=== PATIENT | female | born 2000 | race Caucasian/White ===

== ENCOUNTER 2023-01-10 10:51 | Emergency (ER) | payer OTHER, SELFPAY ==
[2023-01-10 10:56] VITALS: BP 134/84; PULSE 124; RESP 24; TEMP 36.8; O2SAT 99; BMI 34.6
--- NOTE | 2023-01-10 11:20 | ED_ITS ---
HPI - General Adult General Chief complaint: Upper Respiratory Infection Stated complaint: URTI Time Seen by Provider: 01/10/23 11:01 History of Present Illness HPI narrative: 5 days ago the patient developed sore throat, achiness, nasal congestion and cough. No fever or chills. No vomiting or diarrhea. Patient thought it might go away on its own but it hasn't. She took Dayquil once and took tylenol twice. Nothing else taken for her symptoms. She told me that she is concerned because her grandfather had hand foot and mouth disease and was admitted for pneumonia a couple weeks ago . No home or out-patient testing obtained by the patient. Related Data Previous Rx's Medication Instructions Recorded [id number]-[id number] 5 ml PO Q6H PRN cold symptoms #118 01/10/23 2 mg-30 mg-10 mg/5 mL oral syrup mL (Bromfed DM) Allergies Allergy/AdvReac Type Severity Reaction Status Date / Time No Known Drug Allergies Allergy Verified 01/10/23 11:00 [facility] Social History Smoking status: Heavy tobacco smoker Exam Narrative Exam Narrative: Nurses notes and vital signs reviewed and patient is not hypoxic. afebrile General: Well-appearing and in no apparent distress. Skin: Warm, dry, no pallor noted. No rash. Head: Normocephalic, atraumatic. Neck: Supple, non-tender. no cervical lymphadenopathy. No meningismus. Eye: Pupils are equal, round and EOMI. No scleral icterus. Ears, Nose, Mouth, and Throat: TM are clear, mild nasal mucosal hypertrophy. Oral mucosa is moist, mild posterior oropharynx erythema without exudate, uvula is mid-line, mild postnasal drip noted. Cardiovascular: tachycardia. Respiratory: No accessory muscle use or respiratory distress. Lungs are clear to auscultation, no wheezing, rales or rhonchi Musculoskeletal: normal ROM Neurological: A&O x4. No cranial nerve dysfunction observed. No truncal ataxia. Moves all extremities. Sensation intact. Psychiatric: Cooperative and interactive. Normal mood and affect. Constitutional Vital Signs, click to edit/add: Last Vital Signs Temp 98.2 F 01/10/23 10:56 Pulse 124 H 01/10/23 10:56 Resp 24 01/10/23 10:56 BP 134/84 01/10/23 10:56 Pulse Ox 99 01/10/23 10:56 Course Vital Signs Vital signs: Vital Signs Temperature 98.2 F 01/10/23 10:56 Pulse Rate 124 H 01/10/23 10:56 Respiratory Rate 24 01/10/23 10:56 Blood Pressure 134/84 01/10/23 10:56 Pulse Oximetry 99 01/10/23 10:56 Temperature 98.2 F 01/10/23 10:56 Pulse Rate 124 H 01/10/23 10:56 Respiratory Rate 24 01/10/23 10:56 Blood Pressure 134/84 01/10/23 10:56 Pulse Oximetry 99 01/10/23 10:56 Medical Decision Making MDM Narrative Medical decision making narrative: swabs for strep and Covid were obtained and sent for testing. Negative strep screen. Patient tested positive for Covid. She was discharged home with prescription for bromfed. Work excuse given. Patient advised to rest, stay at home, practice social distancing, take Motrin and Tylenol for pain and fever if not allergic, stay well hydrated with Gatorade or similar drinks if vomiting or eat as tolerated if not and take any meds as prescribed. Reviewed reasons to return including rapid increase in respiratory rate, shortness of breath, confusion, inability to keep down sips of swallowed liquids for more than 24 hours. Asked patient to encourage any ill contacts to stay home and practice similar advice. Lab Data Lab results reviewed: Yes I reviewed the patient's lab results Labs: Lab Results 01/10/23 01/10/23 Range/Units 11:25 11:27 SARS-CoV-2 (PCR) Positive A (NEGATIVE) Streptococcus Screen Negative Discharge Plan Discharge Chief Complaint: Upper Respiratory Infection Clinical Impression: COVID, Upper respiratory infection Patient Disposition: Home, Self-Care Time of Disposition Decision: 11:52 Prescriptions / Home Meds: New [id number] [Bromfed DM] 2-30-10 mg/5 mL syrup 5 ml PO Q6H PRN (Reason: cold symptoms) Qty: 118 0RF Instructions: Upper Respiratory Infection (ED), COVID-19 (Coronavirus Disease 2019) (ED) Stand Alone Forms: Portal Instructions Referrals: Physician,Non-Staff, MD [Primary Care Provider] - 1 week Discharge Date/Time: 01/10/23 12:08
[2023-01-10 11:52] LABS: SARS-CoV-2 Ag POSITIVE (NEGATIVE)
[2023-01-10 11:53] LABS: Internal Control Within Normal Limits; Strep A Antigen Screen Negative
== END 2023-01-10 12:08 | disposition home or self-care (01) ==
PROVIDERS: Emergency Provider Emergency Medicine
DX: U07.1 COVID-19 (principal); J06.9 Acute upper respiratory infection, unspecified; F17.210 Nicotine dependence, cigarettes, uncomplicated
CPT/HCPCS: 87070; 87811; 87880; 99283

== ENCOUNTER 2023-05-05 17:13 | Emergency (ER) | payer OTHER, SELFPAY ==
[2023-05-05] VITALS (7 sets, daily range): BP systolic 115–120; BP diastolic 76–91; PULSE 72–87; RESP 16–17; TEMP 36.8; O2SAT 99–100; BMI 32.3
--- OUTSIDE RECORDS SUMMARY | 2023-05-05 17:20 | XMS_ITS | CCD ---
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 Instructions: Upper Respiratory Infection, Adult, Hhgo-xo-Cecn Follow up: With: Address: When: Jewell Monzon [address] [place] [address] [place] [phone] Business (1) In 3 days 05/05/2023 Comments: Follow-up with your primary care provider in 3 to 5 days. If symptoms worsen, do not improve, or new symptoms arise please report back to emergency department for further evaluation. DIAGNOSIS: Acute URI Normal [facility] ED Note-Physicianon 05-02-19 ED Note-Physician Basic Information Time Seen: Carlos Wolf PA-C 05/02/2023 08:19 Chief Complaint sore throat, productive cough, congestion, fever for the last week. has been taking nyquil and dayquil, tylenol. History of Present Illness A 22-year-old female reports to the emergency department with chief complaint of sore throat, congestion, and fever as well as a productive cough has been going on for the last 6 days. Reports that she has been taking NyQuil and DayQuil as long as Tylenol, without much relief of her symptoms. States that her worst pain is her sore throat right now. Denies any recent sick contacts. Reports allergies to Abilify meloxicam and Vicodin. Denies any chest pain or shortness of breath. Denies any history of asthma. Review of Systems A 10 point review of systems is negative except as noted above. Medical and Surgical History: Reviewed and noted Social history: Lives at home Family History: Reviewed. Tobacco: denies, former Physical Exam Vitals & Measurements T: 36.6 ?C(Oral) HR: 92(Peripheral) RR: 18 BP: 124/77 SpO2: 94% HT: 165 cm WT: 87.3 kg BMI: 32.07 General: The patient appears well and in no apparent distress. Patient is resting comfortably in chair. afebrile Skin: Warm, dry, no pallor noted. Head: Normocephalic, atraumatic Neck: No JVD Eye: PERRLA, EOMI ENT: Moist mucus membranes. Pharynx is erythematous, but no exudates are seen. Bilateral TMs intact with no erythema or bulging. Cardiovascular: Regular rate normal peripheral perfusion. Radial pulses +2 bilaterally Respiratory: No respiratory distress no accessory muscle use no obvious audible wheezing. Lung sounds clear to auscultation Chest Wall: no deformity Musculoskeletal: normal ROM, no deformity, no swelling GI: No obvious distention soft nontender nondistended no guarding rebounding or rigidity Neurological: A&O moves all extremities equal strength and symmetry Psychiatric: Cooperative and appropriate Medical Decision Making MEDICAL DECISION MAKING Number and Complexity of Problems Differential Diagnosis: MDM Data External documents reviewed: [] My EKG interpretation: [] My CT interpretation: [] My X-ray interpretation: reviewed My Ultrasound interpretation: [] Decision rules/scores evaluated: [] Discussed with: [] Treatment and Disposition ED Course: 22-year-old female reports to the emergency department with a chief complaint of cough, congestion, and throat pain that has been going on for 6 days. Reports that she has been taking OTC meds without relief. Physical exam with patient is rather benign. Mild erythema of the throat, but otherwise benign exam. She is afebrile resting comfortably in the chair. Lung sounds good auscultation. Due to concerns, we did do a chest x-ray, as well as strep flu and COVID swabs on the patient. Swabs were negative. Chest x-ray negative as well. Discussed likely URI. Discussed supportive therapy. Follow-up with your primary care provider in 3 to 5 days. If symptoms worsen, do not improve, or new symptoms arise please report back to emergency department for further evaluation. The patient was understanding and agreeable to plan moving forward. [x] The patient was diagnosed with upper respiratory infection and was not prescribed an antibiotic. [SATISFIES MIPS PERFORMANCE] [ ] The patient has competing comorbid condition within the last 12 months. The comorbid condition was [] (e.g., neutropenia, cystic fibrosis, chronic bronchitis, pulmonary edema, respiratory failure, rheumatoid lung disease). [MIPS PERFORMANCE EXCEPTION/EXCLUSION [ ] The patient is already on antibiotics, or has taken them within the last 30 days. [MIPS PERFORMANCE EXCEPTION/EXCLUSION] [ ] The patient had a competing diagnosis of [] (e.g. acute otitis media, chronic sinusitis, UTI, etc.) [MIPS PERFORMANCE EXCEPTION/EXCLUSION] [ ] The patient was diagnosed with upper respiratory infection and was prescribed or dispensed an antibiotic. [DOES NOT SATISFY MIPS PERFORMANCE] Shared decision making: [] Code status: [] Assessment/Plan Dx: URI (upper respiratory infection) J06.9 Disposition Plan Patient Discharge Condition Stable Discharge Disposition To home Discharge Prescription List Prescriptions Bromfed DM oral syrup, 5 mL, Oral, QID, PRN Medrol 4 mg Tab, 1 packet(s), Oral, As Directed Follow-up With When Contact Information Jewell Nicolás In 3 days 05/05/[address] [place] [address] [phone] [facility] (1) Additional Instructions: Follow-up with your primary care provider in 3 to 5 days. If symptoms worsen, do not improve, or new symptoms arise please report back to emergency department for further evaluation. Patient Education Upper Respiratory Infection, Adult, Elbh-kk-Frvd Attestation Patient seen and evaluated by the physician medical assistant ob gyn. Attending physician was present in the emergency department and supervised care. This visit was perfo (more content not included)... Normal [facility] Comment on above: Result Comment: Elec tronically Signed By: Luciano [email or web address].br\Date and Time Signed: 05/02/23 09:22 EST\.br\Electronically Co-Signed By: Adolph Aleman M.D..br\Date and Time Co-Signed: 05/02/23 10:33 EST ED Patient Education Noteon 05-02-2023 ED Patient Education Note Infectious Disease Upper Respiratory Infection, Adult An upper respiratory infection (URI) affects the nose, throat, and upper airways that lead to the lungs. The most common type of URI is often called the common cold. URIs usually get better on their own, without medical treatment. What are the causes? A URI is caused by a germ (virus). You may catch these germs by: ? Breathing in droplets from an infected person's cough or sneeze. ? Touching something that has the germ on it (is contaminated) and then touching your mouth, nose, or eyes. What increases the risk? You are more likely to get a URI if: ? You are very young or very old. ? You have close contact with others, such as at work, school, or a health care facility. ? You smoke. ? You have long-term (chronic) heart or lung disease. ? You have a weakened disease-fighting system (immune system). ? You have nasal allergies or asthma. ? You have a lot of stress. ? You have poor nutrition. What are the signs or symptoms? ? Runny or stuffy (congested) nose. ? Cough. ? Sneezing. ? Sore throat. ? Headache. ? Feeling tired (fatigue). ? Fever. ? Not wanting to eat as much as usual. ? Pain in your forehead, behind your eyes, and over your cheekbones (sinus pain). ? Muscle aches. ? Redness or irritation of the eyes. ? Pressure in the ears or face. How is this treated? URIs usually get better on their own within 7?10 days. Medicines cannot cure URIs, but your doctor may recommend certain medicines to help relieve symptoms, such as: ? Dlrl-aoc-qhvsjtr cold medicines. ? Medicines to reduce coughing (cough suppressants). Coughing is a type of defense against infection that helps to clear the nose, throat, windpipe, and lungs (respiratory system). Take these medicines only as told by your doctor. ? Medicines to lower your fever. Follow these instructions at home: Activity ? Rest as needed. ? If you have a fever, stay home from work or school until your fever is gone, or until your doctor says you may return to work or school. ? You should stay home until you cannot spread the infection anymore (you are not contagious). ? Your doctor may have you wear a face mask so you have less risk of spreading the infection. Relieving symptoms ? Rinse your mouth often with salt water. To make salt water, dissolve ??1 tsp (3?6 g) of salt in 1 cup (237 mL) of warm water. ? Use a cool-mist humidifier to add moisture to the air. This can help you breathe more easily. Eating and drinking ? Drink enough fluid to keep your pee (urine) pale yellow. ? Eat soups and other clear broths. General instructions ? Take arzm-qqq-oprgugz and prescription medicines only as told by your doctor. ? Do not smoke or use any products that contain nicotine or tobacco. If you need help quitting, ask your doctor. ? Avoid being where people are smoking (avoid secondhand smoke). ? Stay up to date on all your shots (immunizations), and get the flu shot every year. ? Keep all follow-up visits. How to prevent the spread of infection to others ? Wash your hands with soap and water for at least 20 seconds. If you cannot use soap and water, use hand principal engineer. ? Avoid touching your mouth, face, eyes, or nose. ? Cough or sneeze into a tissue or your sleeve or elbow. Do not cough or sneeze into your hand or into the air. Contact a doctor if: ? You are getting worse, not better. ? You have any of these: ? A fever or chills. ? Brown or red mucus in your nose. ? Yellow or brown fluid (discharge)coming from your nose. ? Pain in your face, especially when you bend forward. ? Swollen neck glands. ? Pain when you swallow. ? White areas in the back of your throat. Get help right away if: ? You have shortness of breath that gets worse. ? You have very bad or constant: ? Headache. ? Ear pain. ? Pain in your forehead, behind your eyes, and over your cheekbones (sinus pain). ? Chest pain. ? You have long-lasting (chronic) lung disease along with any of these: ? Making high-pitched whistling sounds when you breathe, most often when you breathe out (wheezing). ? Long-lasting cough (more than 14 days). ? Coughing up blood. ? A change in your usual mucus. ? You have a stiff neck. ? You have changes in your: ? Vision. ? Hearing. ? Thinking. ? Mood. These symptoms may be an emergency. Get help right away. Call 911. ? Do not wait to see if the symptoms will go away. ? Do not drive yourself to the hospital. Summary ? An upper respiratory infection (URI) is caused by a germ (virus). The most common type of URI is often called the common cold. ? URIs usually get better within 7?10 days. ? Take tfug-qnh-ijwkmzs and prescription medicines only as told by your doctor. This information is not intended to replace advice given to you by your health care (more content not included)... Normal [facility] ED Patient Summaryon 024 ED Patient Summary [place] [id number] Patient Discharge Instructions Person Information Name: FABRIZIO CARBALLO Age: 22 Years Arrival Date: 05/02/2023 08:16:05 Discharge Diagnosis: Acute URI Primary Care Physician: Nicolás MINA, [employer], Jewell Alcala Provider Information Primary Provider: Love Clifford, Adolph Alejo [employer] Services Intern:None The exam and treatment you received in the Emergency Department were for an urgent problem and are not intended as complete care. It is important that you follow up with a doctor, nurse practitioner, or physician?s medical assistant ob gyn for ongoing care. If your symptoms become worse or you do not improve as expected and you are unable to reach your usual health care provider, you should return to the Emergency Department. We are available 24 hours a day. FABRIZIO CARBALLO has been given the following list of patient education materials, prescriptions and follow-up instructions: Follow-up Instructions: With: Address: When: Jewell Monzon [address] [place] [address] [place] [phone] Business (1) In 3 days 05/05/2023 Comments: Follow-up with your primary care provider in 3 to 5 days. If symptoms worsen, do not improve, or new symptoms arise please report back to emergency department for further evaluation. In the event that this physician does not participate in your insurance network, please consult with your insurance company to find a nearby participating provider. Patient Education Materials: Upper Respiratory Infection, Adult, Nirs-cv-Nbwg A MESSAGE TO ALL PATIENTS REGARDING OPIOIDS PRESCRIPTION OPIOIDS: WHAT YOU NEED TO KNOW Prescription opioids can be used to help relieve npgffdbw-sp-hhinsw pain and are often prescribed following a surgery or injury, or for certain health conditions. These medications can be an important part of the treatment but also come with serious risks. It is important to work with your healthcare provider to make sure you are getting the safest, most effective care. WHAT ARE THE RISKS AND SIDE EFFECTS OF OPIOID USE? Prescription opioids carry serious risks of addiction and overdose, especially with prolonged use. An opioid overdose, often marked by slowed breathing, can cause sudden . The use of prescription opioids can have a number of side effects as well, even when taken as directed: ? Tolerance?meaning you might need to take more of the medication for the same pain relief ? Physical dependence?meaning you have symptoms of withdrawal when a medication is stopped ? Increased sensitivity to pain ? Constipation ? Nausea, vomiting, and dry mouth ? Sleepiness and dizziness ? Confusion ? Depression ? Low levels of testosterone that can result in lower sex drive, energy, and strength ? Itching and sweating RISKS ARE GREATER WITH: ? History of drug misuse, substance use disorder, or overdose ? Mental health conditions (such as depression or anxiety) ? Sleep apnea ? Older age (65 years and older) ? Avoid alcohol while taking prescription opioids. Also, unless specifically advised by your health care provider, medications to avoid include: ? Benzodiazepines (such as Xanax or Valium) ? Muscle relaxants (such as Soma or Flexeril) ? Hypnotics (such as Ambien or Lunesta) ? Other prescription opioids KNOW YOUR OPTIONS Talk to your health care provider about ways to manage your pain that don?t involve prescription opioids. Some of these options may actually work better and have fewer risks and side effects. Options may include: ? Pain relievers such as acetaminophen, ibuprofen, and naproxen ? Some medication that are also used for depression or seizures ? Physical therapy and exercise ? Cognitive behavioral therapy, a psychological, goal-directed approach, in which patients learn how to modify physical, behavioral, and emotional triggers of pain and stress. IF YOU ARE PRESCRIBED OPIOIDS FOR PAIN: ? Never take opioids in greater amounts or more often than prescribed. ? Follow up with your primary health care provider. o Work together to create a plan on how to manage your pain. o Talk about ways to help manage your pain that don?t involve prescription opioids. o Talk about any and all concerns and side effects. ? Help prevent misuse and abuse o Never sell or share prescription opioids. o Never use another person?s prescription opioids. ? Store prescription opioids in a secure place and out of reach of others (this may include visitors, children, friends, and family). ? Safely dispose of unused prescription opioids: Find your community drug take-back program or your pharmacy mail-back program, or flush them down the toilet, following guidance from the Food and Drug Administration (www.fda.gov/Drugs/R esourcesForYou). ? Visit www.cdc.gov/drugover dose to learn about the risks of opioids a (more content not included)... Normal [facility] Grp A Strp PCRon 05-02-2023 Grp A Strp Intrl Ctrl Pass Normal [facility] Comment on above: Order Comment: Order Added on by Discern Rule. Performed By: #### 1 [id number] ####[facility] [id number] [place] [address] S. pyogenes DNA ELYSIA+probe Ql (Throat) Negative Normal [facility] Comment on above: Order Comment: Order Added on by Discern Rule. Result Comment: Test ing performed using DNA amplification. Performed By: #### 1 [id number] ####[facility] [id number] [place] [address] Influenza A&B Agon 4 Influenzae A Ag Negative Normal Negative [facility] Comment on above: Performed By: #### 2 [id number] #### [facility] [address] [place] [address] Influenzae B Ag Negative Normal Negative [facility] Comment on above: Result Comment: Test sensitivity and specificity vary for age group, specimen type, antigen types, and prevalence of disease. Test results must be evaluated in conjunction with other clinical data available to the physician. Individuals who received nasally administered Influenza A vaccine may have positive test results up to 3 days after vaccination. Performed By: #### 2 [id number] #### [facility] [address] [place] [address] MICRO OTHER TESTSOrdered By: Mary Guerrero on 05-02-2023 Influenzae A Ag Negative (05/02/23 8:28 AM) Normal Negative [facility] Man Sero Influenzae B Ag Negative 1 (05/02/23 8:28 AM) Normal Negative [facility] Man Sero Comment on above: Interpretive Data: T est sensitivity and specificity vary for age group, specimen type, antigen types, and prevalence of disease. Test results must be evaluated in conjunction with other clinical data available to the physician. Individuals who received nasally administered Influenza A vaccine may have positive test results up to 3 days after vaccination. Rapid COV Int NEG Ctl Pass (05/02/23 8:28 AM) Normal [facility] Man Sero Rapid COV Int POS Ctl Pass (05/02/23 8:28 AM) Normal [facility] Sero S. pyogenes Ag IA.rapid Ql (Throat) Negative (05/02/23 8:28 AM) Normal Negative [facility] Sero SARS-CoV+SARS-CoV-2 (COVID-19) Ag IA.rapid Ql (Resp) Not Detected 2 (05/02/23 8:28 AM) Normal Not Detected [facility] Man Sero Comment on above: Interpretive Data: T he [employer] Veritor System for Rapid Detection of SARS-CoV-2 is a chromatographic digital immunoassay intended for the direct and qualitative detection of SARS-CoV-2 nucleocapsid antigens in nasal swabs from individuals who are suspected of COVID-19 by their healthcare provider within the first five days of the onset of symptoms. Negative results should be treated as presumptive, do not rule out SARS-CoV-2 infection and should not be used as the sole basis for treatment or patient management decisions, including infection control decisions. Negative results should be considered in the context of a patient s recent exposures, history and the presence of clinical signs and symptoms consistent with COVID-19, and confirmed with a molecular assay, if necessary, for patient management. For in vitro diagnostic use. In the [place], only for use under an Emergency Use Authorization. In the [place], this test has not been FDA cleared or approved; this test has been authorized by FDA under an EUA for use by authorized laboratories; use by laboratories certified under the CLIA, 42 U.S.C. 263a, that meet requirements to perform moderate, high, or waived complexity tests and at the Point of Care (POC), i.e., in patient care settings operating under a CLIA Certificate of Waiver, Certificate of Compliance, or Certificate of Accreditation. This test has been authorized only for the detection of proteins from SARS-CoV-2, not for any other viruses or pathogens; and, in the [facility], this test is only authorized for the duration of the declaration that circumstances exist justifying the authorization of emergency use of in vitro diagnostics for detection and/or diagnosis of the virus that causes COVID-19 under Section 564(b)(1) of the Act, 21 U.S.C. 360bbb-3(b)(1), unless the authorization is terminated or revoked sooner. Rapid COVID Antigen ([facility])on 05-02-2023 Rapid COV Int NEG Ctl Pass Normal [facility] Comment on above: Performed By: #### 2 [id number] #### [facility] [address] [place] [address] Rapid COV Int POS Ctl Pass Normal [facility] Comment on above: Performed By: #### 2 [id number] #### [facility] [address] [place] [address] SARS-CoV+SARS-CoV-2 (COVID-19) Ag IA.rapid Ql (Resp) Not detected Normal Not Detected [facility] Comment on above: Result Comment: The [employer]? System for Rapid Detection of SARS-CoV-2 is a chromatographic digital immunoassay intended for the direct and qualitative detection of SARS-CoV-2 nucleocapsid antigens in nasal swabs from individuals who are suspected of COVID-19 by their healthcare provider within the first five days of the onset of symptoms. Negative results should be treated as presumptive, do not rule out SARS-CoV-2 infection and should not be used as the sole basis for treatment or patient management decisions, including infection control decisions. Negative results should be considered in the context of a patient?s recent exposures, history and the presence of clinical signs and symptoms consistent with COVID-19, and confirmed with a molecular assay, if necessary, for patient management. For in vitro diagnostic use. In the [place], only for use under an Emergency Use Authorization. In the [place], this test has not been FDA cleared or approved; this test has been authorized by FDA under an EUA for use by authorized laboratories; use by laboratories certified under the CLIA, 42 U.S.C. ?263a, that meet requirements to perform moderate, high, or waived complexity tests and at the Point of Care (POC), i.e., in patient care settings operating under a CLIA Certificate of Waiver, Certificate of Compliance, or Certificate of Accreditation. This test has been authorized only for the detection of proteins from SARS-CoV-2, not for any other viruses or pathogens; and, in the [place], this test is only authorized for the duration of the declaration that circumstances exist justifying the authorization of emergency use of in vitro diagnostics for detection and/or diagnosis of the virus that causes COVID-19 under Section 564(b)(1) of the Act, 21 U.S.C. ? 360bbb-3(b)(1), unless the authorization is terminated or revoked sooner. Performed By: #### 2 [id number] #### [facility] [address] [place] [address] Rapid Strep w/rfxon 05-02-19 24 S. pyogenes Ag IA.rapid Ql (Throat) Negative Normal Negative [facility] Comment on above: Performed By: #### 2 [id number] #### [facility] [address] [place] [address] XR Chest 2 Viewson 4 XR Chest 2 Views Exam Date/Time: 05/02/2023 08:58 EST Reason for Exam: Cough Report IMPRESSION: No acute radiographic abnormality. EXAMINATION: XR Chest 2 Views Clinical History: Cough Comparison: 03/11/2021. RESULT: No consolidation. No pleural effusion. No pneumothorax. Granulomatous calcifications, unchanged. Normal cardiomediastinal silhouette. No acute osseous findings. Ordering Provider: Carlos Wolf FINAL REPORT Dictated: 05/02/2023 9:09 am Bhavesh Hooper MD Signed (Electronic Signature): 05/02/2023 9:09 am Signed by: Bhavesh Hooper MD Transcribed by: ANCELMO Technologist: ANNIE Technical Comments Radiation Dose: Ka,r in mGy = . DAP = . Normal [facility] ED Note-Physicianon 04-24-19 ED Note-Physician Basic Information Time Seen: Carlos Wolf PA-C 04/23/2023 19:16 Chief Complaint slipped on broom and fell. has had back and neck pain History of Present Illness 22-year-old female reports emerged department chief complaint of falling. Reports that she slipped on the broom, and fell backwards. Reports that her head and neck. Reports having head and neck pain. Ports pain in her shoulders as well. She reports that this happened a while ago. Reports he went to get checked out. Denies any nausea or vomiting. Denies any visual changes. States that she is concerned and wants to get a scan of her head. Review of Systems A 10 point review of systems is negative except as noted above. Medical and Surgical History: Reviewed and noted Social history: Lives at home Family History: Reviewed. Tobacco: Denies, former Physical Exam Vitals & Measurements T: 36.7 ?C(Oral) HR: 71(Peripheral) RR: 20 BP: 120/82 SpO2: 98% HT: 165.10 cm WT: 90 kg BMI: 33.02 General: The patient appears well and in no apparent distress. Patient is resting comfortably in chair. Afebrile. No focal neurological defects. Skin: Warm, dry, no pallor noted. Head: Normocephalic, atraumatic Neck: No JVD Eye: PERRLA, EOMI ENT: Moist mucus membranes Cardiovascular: Regular rate normal peripheral perfusion Respiratory: No respiratory distress no accessory muscle use no obvious audible wheezing Chest Wall: no deformity Musculoskeletal: normal ROM, no deformity, no swelling. No step-offs felt of cervical spine or thoracic spine. Mild tenderness on palpation lateral of the cervical spine. GI: No obvious distention soft nontender nondistended no guarding rebounding or rigidity Neurological: A&O moves all extremities equal strength and symmetry Psychiatric: Cooperative and appropriate Medical Decision Making MEDICAL DECISION MAKING Number and Complexity of Problems Differential Diagnosis: [] [facility] Data External documents reviewed: [] My EKG interpretation: [] My CT interpretation: reviewed My X-ray interpretation: [] My Ultrasound interpretation: [] Decision rules/scores evaluated: [] Discussed with: [] Treatment and Disposition ED Course: 22-year-old female reports emerged part with chief complaint of a fall, hitting her head and neck. Reports having had neck pain. Denies any red flag symptoms, but does want a CAT scan. Physical exam is rather benign is no step-offs felt of the spine. She has tenderness along the lateral aspect of cervical spine. No focal neurological defects. Due to concerns, we did do a CT of the head. CT of the head was negative for any acute findings. CT of the neck showed no evidence of spinal fracture or injury. Discussed with the patient was happy this. Discussed return precautions. Follow-up with your primary care provider in 3 to 5 days. If symptoms worsen, do not improve, or new symptoms arise please report back to emergency department for further evaluation. The patient was understanding and agreeable to plan moving forward. Shared decision making: [] Code status: [] Assessment/Plan Back spasm (M62.830: Muscle spasm of back) Fall (W19.XXXA: Unspecified fall, initial encounter) Orders: CT Head or Brain w/o Contrast CT Spine Cervical w/o Contrast Disposition Plan Patient Discharge Condition Stable Discharge Disposition to home Discharge Prescription List Prescriptions No active prescription medications Follow-up With When Contact Information Jewell Monzon In 3 days 04/26/[address] [place] [address] [place] [address] [phone] Business (1) Additional Instructions: Follow-up with your primary care provider in 3 to 5 days. If symptoms worsen, do not improve, or new symptoms arise please report back to emergency department for further evaluation. Patient Education Back Injury Prevention, Wkvx-oe-Ztof Back Exercises, Ppuz-xd-Yfyh Attestation Patient seen and evaluated by the physician medical assistant ob gyn. Attending physician was present in the emergency department and supervised care. This visit was performed by both the physician and an APC. I performed all aspects of the MDM as documented. This report was transcribed using voice recognition software. Every effort was made to ensure accuracy, however, inadvertently computerized inspector heating and refrigeration mistakes may be present. Appropriate healthcare PPE was used in evaluating this patient. The patient was placed in a mask. The healthcare provider was wearing mask, gloves, and utilizing proper hand hygiene. All equipment was properly cleansed. I performed a substantive part of the MDM during the patient?s E/M visit. I personally made or approved the documented management plan and acknowledge its risk of complications. (Independent Interpretation) My (EKG/X-Ray/US/CT as applicable) interpretation as above. (Discussion) Management/test interpretation discussed with APC. Problem List/Past Medical History Ongoing Abnormal c (more content not included)... Normal [facility] Comment on above: Result Comment: Elec tronically Signed By: Carlos Wolf PA-C\.br\Date and Time Signed: 04/23/23 21:36 EST\.br\Electronically Co-Signed By: Andrea Faustin DO\.br\Date and Time Co-Signed: 04/24/23 00:[address] Head or Brain w/o Contras ton 04-23-2023 CT Head or Brain w/o Contrast Exam Date/Time: 04/23/2023 19:53 EST Reason for Exam: Injury Report IMPRESSION: NO ACUTE INTRACRANIAL PROCESS IDENTIFIED. EXAM: CT Head or Brain w/o Contrast DATE: 04/23/2023 7:38 PM CLINICAL HISTORY: Injury. COMPARISON: Outside study 05/18/2020. TECHNIQUE: Routine. All CT scans at this facility use dose modulation, iterative reconstruction, and/or weight based dosing when appropriate to reduce radiation dose to as low as reasonably achievable. FINDINGS: There is no intracranial hemorrhage, mass effect, midline shift, extra-axial collection, evidence of hydrocephalus, skull fracture, or a recent ischemic infarct identified. There is no significant atrophy, or white matter changes, for age. Chronic-appearing opacification is present of the right maxillary sinus and some adjacent ethmoid air cells. The mastoid air cells and other visualized paranasal sinuses are essentially clear. Ordering Provider: Carlos Wolf FINAL REPORT Dictated: 04/23/2023 7:57 pm Girish Edmond MD Signed (Electronic Signature): 04/23/2023 7:57 pm Signed by: Girish Edmond MD Transcribed by: ANCELMO Technologist: SIMONE Lay [facility] CT Spine Cervical w/o Contra ston 04-23-2023 CT Spine Cervical w/o Contrast Exam Date/Time: 04/23/2023 19:53 EST Reason for Exam: Trauma Report IMPRESSION: NO FRACTURE OR EVIDENCE OF CERVICAL SPINE INJURY IDENTIFIED. EXAM: CT Spine Cervical w/o Contrast DATE: 04/23/2023 7:38 PM CLINICAL HISTORY: Trauma. COMPARISON: None available. TECHNIQUE: Spiral unenhanced images were obtained of the cervical spine, with routine reconstructions performed. All CT scans at this facility use dose modulation, iterative reconstruction, and/or weight based dosing when appropriate to reduce radiation dose to as low as reasonably achievable. FINDINGS: The spine is visualized from the craniovertebral junction through the T1-T2 level. There is no fracture, dislocation, or acute paraspinal soft tissue abnormalities identified. Ordering Provider: Carlos Wolf FINAL REPORT Dictated: 04/23/2023 7:58 pm Girish Edmond MD Signed (Electronic Signature): 04/23/2023 7:58 pm Signed by: Girish Edmond MD Transcribed by: ANCELMO Technologist: SIMONE Lay [facility] Consent for Treatmenton Consent for Treatment [id number] #1.00TIFF [facility] Discharge Instructionson Discharge Instructions [id number]#1.00TIFF [facility] ED Clinical Summaryon 2023 ED Clinical Summary [place] [id number] ED Clinical Summary Person Information Name: FABRIZIO CARBALLO [place] Age: 22 Years : 2000 Sex: Female Language: [place] PCP: Nicolás MSN, [employer]-Jewell LUCIANO Marital Status: Single Visit Id: Visit Reason: Neck pain; Back pain; Fall; FELL / POSS HEAD CONCUSSION Speciality: Acuity: 4 Enc Type: Emergency Med Service: Emergency Arrival: 04/23/2023 19:11:15 Discharge: 04/23/2023 20:12:50 LOS: 000 01:01 Checkin: 04/23/2023 19:11:15 Checkout: 04/23/2023 20:12:50 Dispo Type: Home (Routine DC) EVENTS: Event Name Event Status Request Date/Time Start Date/Time Complete Date/Time Arrive Complete 04/23/2023 19:11:15 04/23/2023 19:11:15 04/23/2023 19:11:15 Document Home Meds Request 04/23/2023 19:11:15 Triage Complete 04/23/2023 19:11:15 04/23/2023 19:21:00 04/23/2023 19:21:00 Bed Assign Complete 04/23/2023 19:13:11 04/23/2023 19:13:11 04/23/2023 19:13:11 Dr Exam Complete 04/23/2023 19:13:11 04/23/2023 19:16:07 04/23/2023 19:16:07 RN Exam Complete 04/23/2023 19:13:11 04/23/2023 19:24:51 04/23/2023 19:24:51 Registration Complete 04/23/2023 19:14:01 04/23/2023 19:14:01 04/23/2023 19:14:01 Reg Complete Request 04/23/2023 19:14:01 Reg Bed Request Complete 04/23/2023 19:14:01 04/23/2023 19:14:01 04/23/2023 19:14:01 Registration Request 04/23/2023 19:16:07 Dr Exam Complete 04/23/2023 19:20:23 04/23/2023 19:20:23 04/23/2023 19:20:23 Isolation Screening Request 04/23/2023 19:21:01 CT Complete 04/23/2023 19:37:14 04/23/2023 19:38:33 04/23/2023 19:53:04 Discharge Complete 04/23/2023 20:04:33 04/23/2023 20:12:55 04/23/2023 20:12:55 Transfer Complete 04/23/2023 20:12:55 04/23/2023 20:12:55 04/23/2023 20:12:55 ADDRESS: [address] [place] [id number] PHYS DOC NOTES: MEDICAL INFORMATION: Prescriptions Given: Medications to Continue with No Changes Other Medications propranolol (propranolol 80 mg Cap-ER) 1 Capsules By Mouth every day. Refills: 1. sumatriptan (SUMAtriptan 25 mg Tab) 1 Tablets By Mouth every day as needed for migraine headache. may repeat dose after 2 hours up to a maximum of 200 mg in 24 hours. Refills: 1. PATIENT EDUCATION INFORMATION: Instructions: Back Injury Prevention, Wopx-nz-Bdjc; Back Exercises, Hcdm-vj-Mzml Follow up: With: Address: When: Jewell Monzon [address] [place] [address] [place] [phone] Business (1) In 3 days 04/26/2023 Comments: Follow-up with your primary care provider in 3 to 5 days. If symptoms worsen, do not improve, or new symptoms arise please report back to emergency department for further evaluation. DIAGNOSIS: Back spasm; Fall Normal [facility] ED Patient Education Noteon 04-23-2023 ED Patient Education Note Orthopedics Back Injury Prevention Back injuries can be very painful. They can also be difficult to heal. After having one back injury, you are more likely to have another one. It is important to learn how to avoid injuring or re-injuring your back. The following tips can help you prevent a back injury. What actions can I take to prevent back injuries? Changes in your diet Talk with your doctor about what to eat. Some foods can help make the bones strong. ? Talk with your doctor about how much calcium and vitamin D you need each day. These nutrients help to prevent weakening of the bones (osteoporosis). ? Eat foods that have calcium. These include: ? Dairy products. ? Green leafy vegetables. ? Food and drinks that have calcium added to them (are fortified). ? Eat foods that have vitamin D. These include: ? Milk. ? Food and drinks that have vitamin D added to them. ? If needed, take supplements and vitamins as told by your doctor. Physical fitness Physical fitness makes your bones and muscles strong. It also improves your balance and strength. ? Exercise for 30 minutes a day on most days of the week, or as told by your doctor. Make sure to: ? Do aerobic exercises, such as walking, jogging, biking, or swimming. ? Do exercises that increase balance and strength, such as vin chi and yoga. ? Do stretching exercises. ? Develop strong belly (abdominal) muscles. Your belly muscles help to support your back. ? Stay at a healthy weight. This lowers your risk of a back injury. Good posture Prevent back injuries by developing and keeping a good posture. To do this: ? Sit up straight and stand up straight. Avoid leaning forward when you sit or hunching over when you stand. ? Choose chairs that have good low-back (lumbar) support. ? If you work at a desk: ? Sit close to it so you do not need to lean over. ? Keep your chin tucked in. ? Keep your neck drawn back. ? Keep your elbows bent so that your arms make a corner (right angle). ? When you drive: ? Sit high and close to the steering wheel. Add low-back support to your car seat, if needed. ? Take breaks every hour if you are driving for long periods of time. ? Avoid sitting or standing in one position for very long. Take breaks to get up, stretch, and walk around at least once every hour. ? Sleep on your side with your knees slightly bent, or sleep on your back with a pillow under your knees. ? Keep your head and neck in a straight line with your spine (neutral position) when using electronics like smartphones or tablets. To do this: ? Raise your smartphone or tablet to look at it instead of bending your head or neck to look down. ? Put the smartphone or tablet at the level of your face while looking at the screen. Lifting, twisting, and reaching ? Heavy lifting ? Avoid heavy lifting, especially lifting over and over again. If you must do heavy lifting: ? Stretch before lifting. ? Work slowly. ? Rest between lifts. ? Use a tool such as a cart or a venita to move objects. ? Make a few small trips instead of carrying one heavy load. ? Ask for help when you need it, especially when moving big objects. ? Follow these steps when lifting: ? Stand with your feet shoulder-width apart. ? Get as close to the object as you can. Do not pickling drum operator a heavy object that is far from your body. ? Use handles or lifting straps if you have them. ? Bend at your knees. Squat down, but keep your heels off the floor. ? Keep your shoulders back. Keep your chin tucked in. Keep your back straight. ? Lift the object slowly while you tighten the muscles in your legs, belly, and butt. Keep the object as close to the center of your body as you can. ? Follow these steps when putting down a heavy load: ? Stand with your feet shoulder-width apart. ? Lower the object slowly while you tighten the muscles in your legs, belly, and butt. Keep the object as close to the center of your body as you can. ? Keep your shoulders back. Keep your chin tucked in. Keep your back straight. ? Bend at your knees. Squat down, but keep your heels off the floor. ? Use handles or lifting straps if you have them. ? Twisting and reaching ? Avoid lifting heavy objects above your waist. ? Do not twist at your waist while you are lifting or carrying a load. If you need to turn, move your feet. ? Do not bend over without bending at your knees. ? Avoid reaching over your head, across a table, or for an object on a high surface. Other things to do ? Avoid wet floors and icy ground. Keep sidewalks clear of ice to prevent falls. ? Do not sleep on a mattress that is too soft or too hard. ? Put heavier objects on shelves at waist level. Put typo machine operator objects on lower or higher shelves. ? Find ways to lower your stress (more content not included)... Normal [facility] ED Patient Summaryon 024 ED Patient Summary [place] [id number] Patient Discharge Instructions Person Information Name: FABRIZIO CARBALLO Age: 22 Years Arrival Date: 04/23/2023 19:11:15 Discharge Diagnosis: Back spasm; Fall Primary Care Physician: Nicolás MSN, [employer], Jewell Alcal[place] Provider Information Primary Provider: Andrea Faustin DO [employer] Intern:None The exam and treatment you received in the Emergency Department were for an urgent problem and are not intended as complete care. It is important that you follow up with a doctor, nurse practitioner, or physician?s medical assistant ob gyn for ongoing care. If your symptoms become worse or you do not improve as expected and you are unable to reach your usual health care provider, you should return to the Emergency Department. We are available 24 hours a day. FABRIZIO CARBALLO has been given the following list of patient education materials, prescriptions and follow-up instructions: Follow-up Instructions: With: Address: When: Jewell Monzon [address] [place] [address] [place], [place] [phone] [facility] (1) In 3 days 04/26/2023 Comments: Follow-up with your primary care provider in 3 to 5 days. If symptoms worsen, do not improve, or new symptoms arise please report back to emergency department for further evaluation. In the event that this physician does not participate in your insurance network, please consult with your insurance company to find a nearby participating provider. Patient Education Materials: Back Injury Prevention, Fdbr-sw-Sjuh; Back Exercises, Kjwd-ch-Xfgq A MESSAGE TO ALL PATIENTS REGARDING OPIOIDS PRESCRIPTION OPIOIDS: WHAT YOU NEED TO KNOW Prescription opioids can be used to help relieve jyumrbyj-wa-sxyfrz pain and are often prescribed following a surgery or injury, or for certain health conditions. These medications can be an important part of the treatment but also come with serious risks. It is important to work with your healthcare provider to make sure you are getting the safest, most effective care. WHAT ARE THE RISKS AND SIDE EFFECTS OF OPIOID USE? Prescription opioids carry serious risks of addiction and overdose, especially with prolonged use. An opioid overdose, often marked by slowed breathing, can cause sudden . The use of prescription opioids can have a number of side effects as well, even when taken as directed: ? Tolerance?meaning you might need to take more of the medication for the same pain relief ? Physical dependence?meaning you have symptoms of withdrawal when a medication is stopped ? Increased sensitivity to pain ? Constipation ? Nausea, vomiting, and dry mouth ? Sleepiness and dizziness ? Confusion ? Depression ? Low levels of testosterone that can result in lower sex drive, energy, and strength ? Itching and sweating RISKS ARE GREATER WITH: ? History of drug misuse, substance use disorder, or overdose ? Mental health conditions (such as depression or anxiety) ? Sleep apnea ? Older age (65 years and older) ? Avoid alcohol while taking prescription opioids. Also, unless specifically advised by your health care provider, medications to avoid include: ? Benzodiazepines (such as Xanax or Valium) ? Muscle relaxants (such as Soma or Flexeril) ? Hypnotics (such as Ambien or Lunesta) ? Other prescription opioids KNOW YOUR OPTIONS Talk to your health care provider about ways to manage your pain that don?t involve prescription opioids. Some of these options may actually work better and have fewer risks and side effects. Options may include: ? Pain relievers such as acetaminophen, ibuprofen, and naproxen ? Some medication that are also used for depression or seizures ? Physical therapy and exercise ? Cognitive behavioral therapy, a psychological, goal-directed approach, in which patients learn how to modify physical, behavioral, and emotional triggers of pain and stress. IF YOU ARE PRESCRIBED OPIOIDS FOR PAIN: ? Never take opioids in greater amounts or more often than prescribed. ? Follow up with your primary health care provider. o Work together to create a plan on how to manage your pain. o Talk about ways to help manage your pain that don?t involve prescription opioids. o Talk about any and all concerns and side effects. ? Help prevent misuse and abuse o Never sell or share prescription opioids. o Never use another person?s prescription opioids. ? Store prescription opioids in a secure place and out of reach of others (this may include visitors, children, friends, and family). ? Safely dispose of unused prescription opioids: Find your community drug take-back program or your pharmacy mail-back program, or flush them down the toilet, following guidance from the Food and Drug Administration (www.fda.gov/Drugs/R esourcesForYou). ? Visit www.cdc.gov/drugover dose to learn about t (more content not included)... Normal [facility] Patient Educationon 04-03-19 24 Patient Education Mental and Behavioral Health Managing Depression, Adult Depression is a mental health condition that affects your thoughts, feelings, and actions. Being diagnosed with depression can bring you relief if you did not know why you have felt or behaved a certain way. It could also leave you feeling overwhelmed with uncertainty about your future. Preparing yourself to manage your symptoms can help you feel more positive about your future. How to manage lifestyle changes Managing stress Stress is your body's reaction to life changes and events, both good and bad. Stress can add to your feelings of depression. Learning to manage your stress can help lessen your feelings of depression. Try some of the following approaches to reducing your stress (stress reduction techniques): ? Listen to music that you enjoy and that inspires you. ? Try using a meditation adi or take a meditation class. ? Develop a practice that helps you connect with your spiritual self. Walk in nature, pray, or go to a place of islam. ? Do some deep breathing. To do this, inhale slowly through your nose. Pause at the top of your inhale for a few seconds and then exhale slowly, letting your muscles relax. ? Practice yoga to help relax and work your muscles. Choose a stress reduction technique that suits your lifestyle and personality. These techniques take time and practice to develop. Set aside 5?15 minutes a day to do them. Therapists can offer training in these techniques. Other things you can do to manage stress include: ? Keeping a stress diary. ? Knowing your limits and saying no when you think something is too much. ? Paying attention to how you react to certain situations. You may not be able to control everything, but you can change your reaction. ? Adding humor to your life by watching funny films or TV shows. ? Making time for activities that you enjoy and that relax you. Medicines Medicines, such as antidepressants, are often a part of treatment for depression. ? Talk with your pharmacist or health care provider about all the medicines, supplements, and herbal products that you take, their possible side effects, and what medicines and other products are safe to take together. ? Make sure to report any side effects you may have to your health care provider. Relationships Your health care provider may suggest family therapy, couples therapy, or individual therapy as part of your treatment. How to recognize changes Everyone responds differently to treatment for depression. As you recover from depression, you may start to: ? Have more interest in doing activities. ? Feel less hopeless. ? Have more energy. ? Overeat less often, or have a better appetite. ? Have better mental focus. It is important to recognize if your depression is not getting better or is getting worse. The symptoms you had in the beginning may return, such as: ? Tiredness (fatigue) or low energy. ? Eating too much or too little. ? Sleeping too much or too little. ? Feeling restless, agitated, or hopeless. ? Trouble focusing or making decisions. ? Unexplained physical complaints. ? Feeling irritable, angry, or aggressive. If you or your family members notice these symptoms coming back, let your health care provider know right away. Follow these instructions at home: Activity ? Try to get some form of exercise each day, such as walking, biking, swimming, or lifting weights. ? Practice stress reduction techniques. ? Engage your mind by taking a class or doing some volunteer work. Lifestyle ? Get the right amount and quality of sleep. ? Cut down on using caffeine, tobacco, alcohol, and other potentially harmful substances. ? Eat a healthy diet that includes plenty of vegetables, fruits, whole grains, low-fat dairy products, and lean protein. Do not eat a lot of foods that are high in solid fats, added sugars, or salt (sodium). General instructions ? Take cdtz-jxp-ujmzzly and prescription medicines only as told by your health care provider. ? Keep all follow-up visits as told by your health care provider. This is important. Where to find support Talking to others Friends and family members can be sources of support and guidance. Talk to trusted friends or family members about your condition. Explain your symptoms to them, and let them know that you are working with a health care provider to treat your depression. Tell friends and family members how they also can be helpful. Finances ? Find appropriate mental health providers that fit with your financial situation. ? Talk with your health care provider about options to get reduced prices on your medicines. Where to find more information You can find support in your area from: ? Anxiety and Depression Association of [place] (ADAA): www.adaa.org ? Mental Health Mira: www.mentaljulieta mandujano.ne (more content not included)... Normal [facility] Patient Educationon 03-26-19 24 Patient Education Neurology Chronic Migraine Headache A migraine is a type of headache that is usually stronger and more sudden than other headaches. Migraines are characterized by an intense pulsing, throbbing pain that is usually only present on one side of the head. Migraine pain usually gets worse with activity. Migraines can cause nausea, vomiting, sensitivity to light and sound, and vision changes. Migraines that keep coming back are called recurrent migraines. A migraine is called a chronic migraine if it happens at least 15 days in a month for more than 3 months. Talk with your health care provider about what things may bring on (trigger) your migraines. What are the causes? The exact cause of this condition is not known. However, a migraine may be caused when nerves in the brain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 Performed By: #### P IDAQ #### [facility] [address] [place] [address] Dr. Lissy Allen HSV, IgM I/II Combination <0.91 Normal 0.00-0.90 [facility] Comment on above: Result Comment: Nega tive <0.91 Equivocal 0.91 - 1.09 Positive >1.09 Performed By: #### P IDAQ #### [facility] [address] [place] [address] Dr. Lissy Allen Rubella Antibodies, IgM <20.0 Normal 0.0-19.9 [facility] Comment on above: Result Comment: Nega tive <20.0 Equivocal 20.0 - 24.9 Positive >24.9 Performed By: #### P IDAQ #### [facility] [address] [place] [address] Dr. Lissy Allen Toxoplasma gondii Ab,IgM,Qn <3.0 Normal 0.0-7.9 [facility] Comment on above: Result Comment: Nega tive <8.0 Equivocal 8.0 - 9.9 Positive >9.9 Performed By: #### P IDAQ #### [facility] [address] [place] [address] Dr. Lissy Allen UA (CLEAN/CATCH) LONG TERM CARE PHARMACIST/MICRO I F IND.on 04-05-2021 Bilirubin Ql (U) Negative Normal NEGATIVE [facility] Comment on above: Performed By: #### U ACSIND #### [facility] [address] [place] [address] Dr. Lissy Allen Clarity (U) CLEAR Normal CLEAR [facility] Comment on above: Performed By: #### U ACSIND #### [facility] [address] [place] [address] Dr. Lissy Allen Color (U) LT. YELLOW Normal YELLOW [facility] Comment on above: Performed By: #### U ACSIND #### [facility] [address] [place] [address] Dr. Lissy Allen Glucose Ql (U) Negative Normal NEGATIVE [facility] Comment on above: Performed By: #### U ACSIND #### [facility] [address] [place] [address] Dr. Lissy Allen Hemoglobin Ql (U) Negative Normal NEGATIVE [facility] Comment on above: Performed By: #### U ACSIND #### [facility] [address] [place] [address] Dr. Lissy Allen Ketones Ql (U) Negative Normal NEGATIVE [facility] Comment on above: Performed By: #### U ACSIND #### [facility] [address] [place] [address] Dr. Lissy Allen LEUKOCYTES Negative Normal NEGATIVE [facility] Comment on above: Performed By: #### U ACSIND #### [facility] [address] [address] [address] Lissy Allen Nitrite Ql (U) Negative Normal NEGATIVE [facility] Comment on above: Performed By: #### U ACSIND #### [facility] [address] [address] [address] Lissy Allen pH (U) 7.0 [pH] Normal 5-9 [facility] Comment on above: Performed By: #### U ACSIND #### [facility] [address] [address] [address] Lissy Allen SPEC GRAVITY 1.025 Normal 1.005-<=1.02 5 [facility] Comment on above: Performed By: #### U ACSIND #### [facility] [address] [place] [address] Dr. Lissy Allen UA PROTEIN Negative Normal NEGATIVE/ TRACE [facility] Comment on above: Performed By: #### U ACSIND #### [facility] [address] [place] [address] Dr. Lissy Allen UR MICRO IND NOT INDICATED Normal [facility] Comment on above: Performed By: #### U ACSIND #### [facility] [address] [place] [address] Dr. Lissy Allen Urobilinogen Qn (U) 0.2 {Calderon'U}/dL Normal 0.2 - 1. 0 [facility] Comment on above: Performed By: #### U ACSIND #### [facility] [address] [place] [address] Dr. Lissy Allen US PREG BIOPHY W NON STRESSo n 04-05-2021 US PREG BIOPHY W NON STRESS EXAMINATION: US PREG BIOPHY W NON STRESS HISTORY: Oligohydramnios COMPARISON: No relevant comparison available. TECHNIQUE: Ultrasound biophysical profile was performed in the radiology department. FINDINGS: BREATHING MOVEMENTS: 2.0 GROSS BODY MOVEMENTS: 2.0 TONE: 2.0 QUALITATIVE AMNIOTIC FLUID VOLUME: 2.0 PRESENTATION: Cephalic HEART RATE: 148.4 bpm H.B./min AMNIOTIC FLUID VOLUME: 6.4 cm cm GESTATIONAL AGE: 34 weeks 1 days CONCLUSION: Total biophysical profile score: 8.0 Electronically authenticated by: DEVIN ANAND Date: 2021-04-05 08:19 Normal [facility] LAB TESTINGon 04-04-2021 RECV HEADER SEE SCANNED REPORT IN HPF Normal [facility] Comment on above: Performed By: #### M ISC #### [facility] [address] [address] [address] Lissy Allen REV FROM REF LAB 04/11/2021 [facility] Comment on above: Performed By: #### M ISC #### [facility] [address] [address] [address] Lissy Allen SENT TO REF LAB 04/04/2021 [facility] Comment on above: Performed By: #### M ISC #### [facility] [address] [address] [address] Lissy Allen US PREG BIOPHY W NON STRESSo n 04-04-2021 US PREG BIOPHY W NON STRESS EXAMINATION: US PREG BIOPHY W NON STRESS HISTORY: Reduced movement COMPARISON: No relevant comparison available. TECHNIQUE: Ultrasound biophysical profile was performed in the radiology department. FINDINGS: BREATHING MOVEMENTS: 2.0 GROSS BODY MOVEMENTS: 2.0 TONE: 2.0 QUALITATIVE AMNIOTIC FLUID VOLUME: 2.0 PRESENTATION: CEPHALIC HEART RATE: 160.2 bpm H.B./min AMNIOTIC FLUID VOLUME: 6.2 cm cm GESTATIONAL AGE: 34 weeks 0 days CONCLUSION: Total biophysical profile score: 8.0 Electronically authenticated by: DEVIN ANAND Date: 2021-04-04 13:49 Normal [facility] US PREG BIOPHY W NON STRESSo n 04-01-2021 US PREG BIOPHY W NON STRESS EXAMINATION: US PREG BIOPHY W NON STRESS HISTORY: Oligohydramnios COMPARISON: Ultrasound biophysical 03/30/2021 TECHNIQUE: Ultrasound biophysical profile was performed. FINDINGS: BREATHING MOVEMENTS: 2.0 GROSS BODY MOVEMENTS: 2.0 TONE: 2.0 QUALITATIVE AMNIOTIC FLUID VOLUME: 2.0 PRESENTATION: Cephalic HEART RATE: 152.5 bpm bpm. AMNIOTIC FLUID VOLUME: 7.3 cm; largest pocket 4.0 cm. (5.0 cm with 1.4 cm pocket on 03/30/2021) GESTATIONAL AGE: 33 weeks 4 days CONCLUSION: 1. Total biophysical profile score 8.0. 2. Old girl hydramnios; minimally improved compared to 03/30/2021. Electronically authenticated by: LUIS HART Date: 2021-04-01 13:17 Normal [facility] US PREG BIOPHY W NON STRESSo n 03-31-2021 US PREG BIOPHY W NON STRESS EXAMINATION: US PREG BIOPHY W NON STRESS HISTORY: Reduced movement COMPARISON: No relevant comparison available. TECHNIQUE: Ultrasound biophysical profile was performed in the radiology department. non-reactive stress testing was performed by nursing staff in the birthing center. FINDINGS: BREATHING MOVEMENTS: 2.0 GROSS BODY MOVEMENTS: 2.0 TONE: 2.0 QUALITATIVE AMNIOTIC FLUID VOLUME: 0.0 PRESENTATION: Cephalic HEART RATE: 166.7 bpm H.B./min AMNIOTIC FLUID VOLUME: 5.0 cm cm GESTATIONAL AGE: 33 weeks 2 days CONCLUSION: Total biophysical profile score: 6.0 Oligohydramnios Electronically authenticated by: DEVIN ANAND Date: 2021-03-31 07:02 Normal [facility] AMYLASEon 03-30-2021 Amylase [Catalytic activity/Vol] 70 U/L Normal 31-110 [facility] Comment on above: Performed By: #### A LT, AST, LIPA, CREA, NATALY, ELEC ####[facility] [address] [address]DrGale Allen BUNon 03-30-2021 Urea nitrogen [Mass/Vol] 10.0 mg/dL Normal 7.0-17.0 [facility] Comment on above: Performed By: #### B UN #### [facility] [address] [address] [address] Lissy Aleln CBC AUTO DIFFon 03-30-2021 BASO # 0.0 103/ul Normal 0.0-0.1 [facility] Comment on above: Performed By: #### C BC ####[facility] [address] [address]Dr. Lissy Allen Basophils/100 WBC (Bld) 0.3 % Normal 0.2-2.0 [facility] Comment on above: Performed By: #### C BC ####[facility] [address] [id number]. Lissy Allen EO # 0.0 103/ul Normal 0.0-0.7 [facility] Comment on above: Performed By: #### C BC ####[facility] [address] [id number]. Lissy Allen Eosinophils/100 WBC (Bld) 0.2 % Critically low 0.9-7.0 [facility] Comment on above: Performed By: #### C BC ####[facility] [address] [address]Dr. Lissy Allen Erythrocyte distribution width (RBC) [Ratio] 18.6 % Critically high 11.0-15.0 [facility] Comment on above: Performed By: #### C BC ####[facility] [address] [place], [place] [address]Dr. Lissy Allen Hematocrit (Bld) [Volume fraction] 28.6 % Critically low 36.0-48.0 [facility] Comment on above: Performed By: #### C BC ####[facility] [address] [address]Dr. Lissy Allen Hemoglobin (Bld) [Mass/Vol] 8.5 g/dL Critically low 12.0-16.0 [facility] Comment on above: Performed By: #### C BC ####[facility] [address] [place], [place] [address]Dr. Lissy Allen IG # 0.07 10e3/ul Critically high 0.00-0.03 [facility] Comment on above: Performed By: #### C BC ####[facility] [address] [address]Dr. Lissy Allen IG % 0.6 % Critically high 0.0-0.5 [facility] Comment on above: Performed By: #### C BC ####[facility] [address] [place], [place] [address]Dr. Lissy Allen LYMPH # 2.2 103/ul Normal 1.2-3.8 [facility] Comment on above: Performed By: #### C BC ####[facility] [address] [address]Dr. Lissy Allen Lymphocytes/100 WBC (Bld) 19.5 % Critically low 20.5-60.0 [facility] Comment on above: Performed By: #### C BC ####[facility] [address] [address]Dr. Lissy Allen MANUAL DIFF REQ NO Normal [facility] Comment on above: Performed By: #### C BC ####[facility] [address] [address]Dr. Lissy Allen MCH (RBC) [Entitic mass] 23.0 pg Critically low 26.7-34.0 [facility] Comment on above: Performed By: #### C BC ####[facility] [address] [place], [place] [address]Dr. Lissy Allen MCHC (RBC) [Mass/Vol] 29.7 g/dL Critically low 29.9-35.2 [facility] Comment on above: Performed By: #### C BC ####[facility] [address] [place], [place] [address]Dr. Lissy Allen MCV (RBC) [Entitic vol] 77.5 fL Critically low 81.0-99. 0 [facility] Comment on above: Performed By: #### C BC ####[facility] [address] [place], [place] [address]Dr. Lissy Allen MONO # 0.8 103/ul Normal 0.3-0.8 [facility] Comment on above: Performed By: #### C BC ####[facility] [address] [place], [place] [address]Dr. Lissy Allen Monocytes/100 WBC (Bld) 6.8 % Normal 1.7-12.0 [facility] Comment on above: Performed By: #### C BC ####[facility] [address] [place], [place] [address]Dr. Lissy Allen NEUT # 8.2 103/ul Critically high 1.4-6.5 [facility] Comment on above: Performed By: #### C BC ####[facility] [address] [id number]. Lissy Allen Neutrophils/100 WBC (Bld) 72.6 % Normal 43.0-75.0 [facility] Comment on above: Performed By: #### C BC ####[facility] [address] [id number]. Lissy Allen Platelet mean volume (Bld) [Entitic vol] 11.1 fL Normal 9.5-13.5 [facility] Comment on above: Performed By: #### C BC ####[facility] [address] [id number]. Lissy Allen PLT 265 103/ul Normal 150-450 [facility] Comment on above: Performed By: #### C BC ####[facility] [address] [address]Dr. Lissy Allen RBC 3.69 106/ul Critically low 4.20-5.40 [facility] Comment on above: Performed By: #### C BC ####[facility] [address] [id number]. Lissy Allen WBC 11.2 103/ul Critically high 4.0-11.0 [facility] Comment on above: Performed By: #### C BC ####[facility] [address] [id number]. Lissy Allen CREATININEon 03-30-2021 Creatinine [Mass/Vol] 0.60 mg/dL Normal 0.52-1.04 [facility] Comment on above: Performed By: #### A LT, AST, LIPA, CREA, NATALY, ELEC ####[facility] [address] [id number]. Lissy Allen EGFR-AF MALTESE >60 Normal >=60 [facility] Comment on above: Performed By: #### A LT, AST, LIPA, CREA, NATALY, ELEC ####[facility] [address] [id number]. Lissy Allen EGFR-NON AF MALTESE >60 Normal >=60 [facility] Comment on above: Performed By: #### A LT, AST, LIPA, CREA, NATLAY, ELEC ####[facility] [address] [address]Dr. Lissy Allen DRUG SCREEN RAPID (URINE)on 03-30-2021 AMP Negative Normal NEGATIVE [facility] Comment on above: Performed By: #### D RUGRPD #### [facility] [address] [address] [address] Lissy Allen BAR Negative Normal NEGATIVE [facility] Comment on above: Performed By: #### D RUGRPD #### [facility] [address] [address] [address] Lissy Allen BUP Negative Normal NEGATIVE [facility] Comment on above: Performed By: #### D RUGRPD #### [facility] [address] [place] [address] Dr. Lissy Allen BZO Negative Normal NEGATIVE [facility] Comment on above: Performed By: #### D RUGRPD #### [facility] [address] [address] [address] Lissy Allen DAVID Negative Normal NEGATIVE [facility] Comment on above: Performed By: #### D RUGRPD #### [facility] [address] [place] [address] Dr. Lissy Allen CUT-OFFS SEE BELOW Normal [facility] Comment on above: Result Comment: AMP (Amphetamine): 500ng/mL, BAR (Barbituates): 200 ng/mL, BZO (Benzodiazepines): 150 ng/mL, BUP (Buprenorphine): 10 ng/mL, DAVID (Cocaine): 150 ng/mL, mAMP (Methamphetamine): 500 ng/mL, MTD (Methadone): 200 ng/mL, OPI (Opiates): 100 ng/mL, OXY (Oxycodone): 100 ng/mL, PCP (Phencyclidine): 25 ng/mL, PPX (Propoxyphene): 300 ng/mL, THC (Cannabinoids): 50 ng/mL, TCA (Trycyclic Antidepressants): 300 ng/mL Performed By: #### D RUGRPD #### [facility] [address] [address] [address] Lissy Allen DRUG CUT HEADER DRUG CLASS TEST SYSTEM CUT-OFF CONCENTRATIONS ARE FOLLOWS: Normal [facility] Comment on above: Performed By: #### D RUGRPD #### [facility] [address] [address] [address] Lissy Allen mAMP Negative Normal NEGATIVE [facility] Comment on above: Performed By: #### D RUGRPD #### [facility] [address] [address] [address] Lissy Allen MTD Negative Normal NEGATIVE [facility] Comment on above: Performed By: #### D RUGRPD #### [facility] [address] [place] [address] Dr. Lissy Allen OPI Negative Normal NEGATIVE [facility] Comment on above: Performed By: #### D RUGRPD #### [facility] [address] [place] [address] Dr. Lissy Allen OXY Negative Normal NEGATIVE [facility] Comment on above: Performed By: #### D RUGRPD #### [facility] [address] [address] [address] Lissy Allen PCP Negative Normal NEGATIVE [facility] Comment on above: Performed By: #### D RUGRPD #### [facility] [address] [place] [address] Dr. Lissy Allen PPX Negative Normal NEGATIVE [facility] Comment on above: Performed By: #### D RUGRPD #### [facility] [address] [address] [address] Lissy Allen TCA Negative Normal NEGATIVE [facility] Comment on above: Performed By: #### D RUGRPD #### [facility] [address] [address] [address] Lissy Allen THC Negative Normal NEGATIVE [facility] Comment on above: Performed By: #### D RUGRPD #### [facility] [address] [place] [address] Dr. Lissy Allen ELECTROLYTESon 03-30-2021 Anion gap [Moles/Vol] 12.4 mmol/L Normal Th e [facility] Comment on above: Performed By: #### A LT, AST, LIPA, CREA, NATALY, ELEC ####[facility] [address] [address]Dr. Lissy Allen Chloride [Moles/Vol] 105 mmol/L Normal 98-107 [facility] Comment on above: Performed By: #### A LT, AST, LIPA, CREA, NATALY, ELEC ####[facility] [address] [place], [place] [address]Dr. Yilan Allen CO2 [Moles/Vol] 23.5 mmol/L Normal 22.0-30.0 [facility] Comment on above: Performed By: #### A LT, AST, LIPA, CREA, NATALY, ELEC ####[facility] Etuty[address] [place], [place] [address]Dr. Lissy Allen Potassium [Moles/Vol] 3.9 mmol/L Normal 3.4-5.0 [facility] Comment on above: Performed By: #### A LT, AST, LIPA, CREA, NATALY, ELEC ####[facility] F[address] [place], [place] [address]Dr. Lissy Allen Sodium [Moles/Vol] 137 mmol/L Normal 137-145 [facility] Comment on above: Performed By: #### A LT, AST, LIPA, CREA, NATALY, ELEC ####[facility] Ok[address] [place], [place] [address]Dr. Lissy Allen LIPASEon 03-30-2021 Lipase [Catalytic activity/Vol] 80.0 U/L Normal 23.0-300.0 [facility] Comment on above: Performed By: #### A LT, AST, LIPA, CREA, NATALY, ELEC ####[facility] [address] [place], [place] [address]Dr. Lissy Allen SGOTon 03-30-2021 AST [Catalytic activity/Vol] 22 U/L Normal 14-36 [facility] Comment on above: Performed By: #### A LT, AST, LIPA, CREA, NATALY, ELEC ####[facility] Dweigzif[address] [place], [place] [address]Dr. Lissy Allen SGPTon 03-30-2021 ALT [Catalytic activity/Vol] 16 U/L Normal - [facility] Comment on above: Performed By: #### A LT, AST, LIPA, CREA, NATALY, ELEC ####[facility] Wrqfciseuu[address] [place], [place] [address]Dr. Lissy Allen UA (CLEAN/CATCH) MICROSCOPIC IF INDICATEon 03-30-2021 Bilirubin Ql (U) Negative Normal NEGATIVE [facility] Comment on above: Performed By: #### U ARMICR ####[facility] Zmbeloac[address] [place], [place] [address]Dr. Lissy Allen Clarity (U) CLEAR Normal CLEAR [facility] Comment on above: Performed By: #### U ARMICR ####[facility] Nweapcuswp[address] [place], [place] [address]Dr. Lissy Allen Color (U) LT. YELLOW Normal YELLOW [facility] Comment on above: Performed By: #### U ARMICR ####[facility] U[address]ob[address] [place], [place] [address]Dr. Lissy Allen Glucose Ql (U) Negative Normal NEGATIVE [facility] Comment on above: Performed By: #### U ARMICR ####[facility] [address] [place], [place] [address]Dr. Lissy Allen Hemoglobin Ql (U) Negative Normal NEGATIVE [facility] Comment on above: Performed By: #### U ARMICR ####[facility] Cyghawxjcs[address] [place], [place] [address]Dr. Lissy Allen Ketones Ql (U) Negative Normal NEGATIVE [facility] Comment on above: Performed By: #### U ARMICR ####[facility] Crxsh[address] [place], [place] [address]Dr. Lissy Allen LEUKOCYTES Negative Normal NEGATIVE [facility] Comment on above: Performed By: #### U ARMICR ####[facility] Qinorxvura[address] [place], [place] [address]Dr. Lissy Allen Nitrite Ql (U) Negative Normal NEGATIVE [facility] Comment on above: Performed By: #### U ARMICR ####[facility] [address] [address]Dr. Lissy Alejandro pH (U) 6.0 [pH] Normal 5-9 [facility] Comment on above: Performed By: #### U ARMICR ####[facility] [address] [address]Dr. Lissy Allen SPEC GRAVITY 1.025 Normal 1.005-<=1.02 5 [facility] Comment on above: Performed By: #### U ARMICR ####[facility] [address] [place], [place] [address]Dr. Lissy Allen UA PROTEIN Negative Normal NEGATIVE/ TRACE [facility] Comment on above: Performed By: #### U ARMICR ####[facility] [address] [place], [place] [address]Dr. Lissy Allen UR MICRO IND NOT INDICATED Normal [facility] Comment on above: Performed By: #### U ARMICR ####[facility] [address] [address]Dr. Lissy Allen Urobilinogen Qn (U) 0.2 {Calderon'U}/dL Normal 0.2 - 1. 0 [facility] Comment on above: Performed By: #### U ARMICR ####[facility] Intazftuf[address] [place], [place] [address]Dr. Lissy Allen US PREG BIOPHY W NON STRESSo n 03-29-2021 US PREG BIOPHY W NON STRESS EXAMINATION: US PREG BIOPHY W NON STRESS HISTORY: Poor growth affecting management COMPARISON: No relevant comparison available. TECHNIQUE: Ultrasound biophysical profile was performed in the radiology department. non-reactive stress testing was performed by nursing staff in the birthing center. FINDINGS: BREATHING MOVEMENTS: 0.0 GROSS BODY MOVEMENTS: 2.0 TONE: 2.0 QUALITATIVE AMNIOTIC FLUID VOLUME: 2.0 PRESENTATION: Cephalic HEART RATE: 155.2 bpm H.B./min AMNIOTIC FLUID VOLUME: 6.2 cm cm GESTATIONAL AGE: 33 weeks 1 days CONCLUSION: Total biophysical profile score: 6.0 Electronically authenticated by: DEVIN Pang: 2021-03-29 13:04 Normal [facility] US PREG BIOPHY W NON STRESSo n 03-27-2021 US PREG BIOPHY W NON STRESS EXAM: Ultrasound OB biophysical profile. HISTORY: . Oligohydramnios . COMPARISON: 03/25/2021 TECHNIQUE: Transabdominal scanning was performed. FINDINGS: There is evidence of an intrauterine in the vertex presentation with a heart rate of 153. Amniotic fluid index was 7.9 cm. This is the 5th percentile. Largest pocket of fluid measures 2.5 cm. breathing 2, movement 2, tone 2, and amniotic fluid volume 2 for a score of 8/8. IMPRESSION: 1. Vertex presentation with a heart rate of 153. 2. Amniotic fluid index was 7.9. On the previous exam of 03/25/2021 amniotic fluid index was 5.7 cm. 3. Biophysical profile 8/8. Electronically authenticated by: DEVIN ALFARO Date: 2021-03-27 14:42 Normal [facility] US PREG BIOPHY W NON STRESSo n 03-25-2021 US PREG BIOPHY W NON STRESS EXAMINATION: US PREG BIOPHY W NON STRESS HISTORY: Decreased amniotic fluid production COMPARISON: No relevant comparison available. TECHNIQUE: Ultrasound biophysical profile was performed in the radiology department. . FINDINGS: BREATHING MOVEMENTS: 2.0 GROSS BODY MOVEMENTS: 2.0 TONE: 2.0 QUALITATIVE AMNIOTIC FLUID VOLUME: 2.0 PRESENTATION: CEPHALIC HEART RATE: 137.1 bpm H.B./min AMNIOTIC FLUID VOLUME: 5.7 cm cm GESTATIONAL AGE: 32 weeks 4 days CONCLUSION: Total biophysical profile score: 8.0 Electronically authenticated by: DEVIN ANAND Date: 2021-03-25 07:49 Normal [facility] US PREG BIOPHY W NON STRESSo n 03-24-2021 US PREG BIOPHY W NON STRESS EXAMINATION: US PREG BIOPHY W NON STRESS HISTORY: Patient currently COMPARISON: Ultrasound biophysical 06/08/2020 TECHNIQUE: Ultrasound biophysical profile was performed. FINDINGS: BREATHING MOVEMENTS: 2.0 GROSS BODY MOVEMENTS: 2.0 TONE: 2.0 QUALITATIVE AMNIOTIC FLUID VOLUME: 2.0 PRESENTATION: Cephalic HEART RATE: 151.7 bpm bpm. AMNIOTIC FLUID VOLUME: 6.1 cm GESTATIONAL AGE: 32 weeks 3 days CONCLUSION: Total biophysical profile score 8.0. Electronically authenticated by: LUIS HART Date: 2021-03-24 14:45 Normal [facility] US PREG UMBILICAL ARTERYon 0 03-24-2021 US PREG UMBILICAL ARTERY EXAMINATION: US PREG UMBILICAL ARTERY HISTORY: Patient currently COMPARISON: Ultrasound umbilical artery 06/03/2020 TECHNIQUE: Duplex Doppler evaluation of the umbilical arteries. FINDINGS: HEART RATE: 134 bpm UMBILICAL ARTERIES: 2 GESTATIONAL AGE: 32 weeks, 3 days WAVEFORM: Normal upstroke. No notching. Forward flow in diastole. PEAK SYSTOLIC VELOCITY: 70 cm/s END DIASTOLIC VELOCITY: 28 cm/s SYST/DIAST RATIO (S:D): 2.7 RESISTIVE INDEX: 0.61 IMPRESSION: Class 0 = Normal umbilical artery blood velocity Electronically authenticated by: LUIS HART Date: 2021-03-24 13:37 Normal [facility] Vital Signs Date Time Vital Sign Value Performing Clinician Facility 05-02-2023 08:19-0500 Body temperature 97.88 [degF] [facility] 05-02-2023 08:19-0500 Diastolic blood pressure 77 mm[Hg] [facility] 05-02-2023 08:19-0500 Heart rate 92 /min [facility] 05-02-2023 08:19-0500 Respiratory rate 18 /min [facility] 05-02-2023 08:19-0500 SaO2% (BldA) [Mass fraction] 94 % [facility] 05-02-2023 08:19-0500 Systolic blood pressure 124 mm[Hg] [facility] 04-23-2023 19:18-0500 Body temperature 98.06 [degF] Victor [facility] 04-23-2023 19:18-0500 Diastolic blood pressure 82 mm[Hg] Victor [facility] 04-23-2023 19:18-0500 Heart rate 71 /min Andrea Referral.IM [facility] 04-23-2023 19:18-0500 Respiratory rate 20 /min Andrea Ramin [facility] 04-23-2023 19:18-0500 SaO2% (BldA) [Mass fraction] 98 % Andrea Ramin [facility] 04-23-2023 19:18-0500 Systolic blood pressure 120 mm[Hg] Andrea Ramin [facility] 02-03-2023 00:18-0500 Diastolic blood pressure 88 mm[Hg] Kaylinn Dokken [facility] 02-03-2023 00:18-0500 Heart rate 65 /min Kaylinn Dokken [facility] 02-03-2023 00:18-0500 Mean blood pressure 96 mm[Hg] Kaylinn Dokken [facility] 02-03-2023 00:18-0500 Respiratory rate 18 /min Kaylinn Dokken [facility] 02-03-2023 00:18-0500 SaO2% (BldA) [Mass fraction] 99 % Kaylinn Dokken [facility] 02-03-2023 00:18-0500 Systolic blood pressure 112 mm[Hg] Kaylinn Dokken [facility] 02-02-2023 21:07-0500 Body temperature 97.88 [degF] Kaylinn Dokken [facility] 02-02-2023 21:07-0500 Diastolic blood pressure 101 mm[Hg] Kaylinn Dokken [facility] 02-02-2023 21:07-0500 Heart rate 112 /min Kaylinn Dokken [facility] 02-02-2023 21:07-0500 Respiratory rate 16 /min Earline Singhen [facility] 02-02-2023 21:07-0500 SaO2% (BldA) [Mass fraction] 100 % Earline Singhen [facility] 02-02-2023 21:07-0500 Systolic blood pressure 138 mm[Hg] Veronan Dosoloen [facility] 10-16-2022 14:13-0400 Blood Pressure Location Jewellarlette Monzon [facility] 10-16-2022 14:13-0400 Body temperature 96.44 [degF] Jewell Nicolás [facility] 10-16-2022 14:13-0400 Diastolic blood pressure 78 mm[Hg] Jewell Nicolás [facility] 10-16-2022 14:13-0400 Heart rate 78 /min Jewell Nicolás [facility] 10-16-2022 14:13-0400 Respiratory rate 18 /min Jewell Nicolás [facility] 10-16-2022 14:13-0400 SaO2% (BldA) [Mass fraction] 99 % Jewell Nicolás [facility] 10-16-2022 14:13-0400 Systolic blood pressure 118 mm[Hg] Jewell Nicolás [facility] 07-10-2022 14:44-0400 Blood Pressure Location MARCIA JUAREZ [facility] 07-10-2022 14:44-0400 Body temperature 98.24 [degF] MARCIA SIDELL [facility] 07-10-2022 14:44-0400 Diastolic blood pressure 72 mm[Hg] MARCIA SIDELL [facility] 07-10-2022 14:44-0400 Heart rate 105 /min MARCIA SIDELL [facility] 07-10-2022 14:44-0400 SaO2% (BldA) [Mass fraction] 99 % MARCIA SIDELL [facility] 07-10-2022 14:44-0400 Systolic blood pressure 114 mm[Hg] MARCIA SIDELL [facility] 03-02-2022 14:15-0500 Diastolic blood pressure 83 mm[Hg] Candy Mora DDS Work Phone: [facility] 03-02-2022 14:15-0500 Heart rate 65 /min Candy Mora DDS Work Phone: [facility] 03-02-2022 14:15-0500 Respiratory rate 20 /min Candy Mora DDS Work Phone: [facility] 03-02-2022 14:15-0500 SaO2% (BldA) [Mass fraction] 98 % [facility]andy [facility] 03-02-2022 14:15-0500 Systolic blood pressure 116 mm[Hg] Candy [facility]a DDS [facility] 03-02-2022 13:57-0500 Body temperature 97.39 [degF] Candy [facility]a DDS [facility] 03-02-2022 11:53-0500 Body height 165.1 cm Candy Mora DDS Work Phone: [facility] 03-02-2022 11:53-0500 Body mass index (BMI) [Ratio] 34.11 kg/m2 Candy Mora DDS Work Phone: [facility] 03-02-2022 11:53-0500 Body weight 92.99 kg Candy Mora DDS Work Phone: [facility] 02-19-2022 07:14-0500 Diastolic blood pressure 83 mm[Hg] Andrea Ramin [facility] 02-19-2022 07:14-0500 Heart rate 78 /min Andrea Ramin [facility] 02-19-2022 07:14-0500 Respiratory rate 16 /min Andrea Ramin [facility] 02-19-2022 07:14-0500 SaO2% (BldA) [Mass fraction] 99 % Andrea Ramin [facility] 02-19-2022 07:14-0500 Systolic blood pressure 121 mm[Hg] Andrea Ramin [facility] 02-19-2022 05:40-0500 Body temperature 97.7 [degF] Andrea Ramin [facility] 02-19-2022 05:40-0500 Diastolic blood pressure 85 mm[Hg] Andrea Ramin [facility] 02-19-2022 05:40-0500 Heart rate 89 /min Andrea Ramin [facility] 02-19-2022 05:40-0500 Respiratory rate 16 /min Andrea Ramin [facility] 02-19-2022 05:40-0500 SaO2% (BldA) [Mass fraction] 100 % Andrea Ramin [facility] 02-19-2022 05:40-0500 Systolic blood pressure 129 mm[Hg] Andrea Faustin [facility] 02-16-2022 11:00-0500 Body height 165.1 cm [facility] 02-16-2022 11:00-0500 Body mass index (BMI) [Ratio] 34.11 kg/m2 Pse Rn [facility] 02-16-2022 11:00-0500 Body weight 92.99 kg [facility] 02-04-2022 10:22-0500 Body temperature 97.7 [degF] Reece Yip [facility] 02-04-2022 10:22-0500 Diastolic blood pressure 70 mm[Hg] Reece Yip [facility] 02-04-2022 10:22-0500 Heart rate 81 /min Reece Yip [facility] 02-04-2022 10:22-0500 Respiratory rate 16 /min Reeceamy Yip [facility] 02-04-2022 10:22-0500 SaO2% (BldA) [Mass fraction] 98 % Reece Yip [facility] 02-04-2022 10:22-0500 Systolic blood pressure 132 mm[Hg] Reece Yip [facility] 01-16-2022 14:31-0400 Body height 165.1 cm Candy Mora DDS Work Phone: [employer] 01-16-2022 14:31-0400 Body mass index (BMI) [Ratio] 33.78 kg/m2 Candy Mora DDS Work Phone: [facility] 01-16-2022 14:31-0400 Body temperature 98.01 [degF] Candy Mora DDS Work Phone: [facility] 01-16-2022 14:31-0400 Body weight 92.08 kg Candy Mora DDS Work Phone: [employer] 01-16-2022 14:31-0400 Diastolic blood pressure 81 mm[Hg] Candy Mora DDS Work Phone: [employer] 01-16-2022 14:31-0400 Heart rate 105 /min Candy Mora DDS Work Phone: [employer] 01-16-2022 14:31-0400 Respiratory rate 14 /min Candy Mora DDS Work Phone: [employer] 01-16-2022 14:31-0400 SaO2% (BldA) [Mass fraction] 99 % Candy Mora DDS Work Phone: [employer] 01-16-2022 14:31-0400 Systolic blood pressure 105 mm[Hg] Candy Mora DDS [email or web address] 08-27-2021 08:32-0400 Body temperature 98.24 [degF] Lane Ab [facility] 08-27-2021 08:32-0400 Diastolic blood pressure 63 mm[Hg] Lane Ab [facility] 08-27-2021 08:32-0400 Heart rate 78 /min Lane Ab [facility] 08-27-2021 08:32-0400 Respiratory rate 20 /min Lane Ab [facility] 08-27-2021 08:32-0400 SaO2% (BldA) [Mass fraction] 98 % Lane Ab [facility] 08-27-2021 08:32-0400 Systolic blood pressure 113 mm[Hg] Lane Ab [facility] Encounters Encounter Date Encounter Type Care Provider Facility Start: 05-02-2023 End: 05-02-2023 Emergency department patient visit Adolph Aleman Facility:[facility] Start: 05-02-2023 End: 05-02-2023 Emergency department patient visit Adolph Aleman [facility] Start: 04-23-2023 End: 04-23-2023 Emergency department patient visit Andrea Faustin Facility:[facility] Start: 04-23-2023 End: 04-23-2023 Emergency department patient visit Andrea Faustin [facility] Start: 04-04-2023 End: 04-05-2023 ambulatory MSN, [employer] Jewell Monzon Facility:[facility] Start: 03-27-2023 End: 03-28-2023 ambulatory MSN, [employer] Jewell Monzon Facility:[facility] Start: 03-27-2023 End: 03-27-2023 Patient encounter procedure Jewell Monzon [facility] Start: 02-02-2023 End: 02-03-2023 Emergency department patient visit DO Earline Bond Facility:[facility] Start: 02-02-2023 End: 02-03-2023 Emergency department patient visit Earline Bond [facility] Start: 02-02-2023 ambulatory Lennox Brewer acility:[facility] Start: 10-16-2022 End: 10-17-2022 ambulatory MSN, [employer] Jewell Monzon Facility:[facility] Start: 10-16-2022 End: 10-16-2022 Patient encounter procedure Jewell Monzon [facility] [place] Start: 10-13-2022 ambulatory MSN, [employer] Jewell Monzon Facility:[facility] Start: 09-08-2022 End: 09-09-2022 ambulatory MARCIA JUAREZ Facility:[facility] Start: 09-08-2022 End: 09-08-2022 Patient encounter procedure MARCIA Floyd SIDEWHITNEY [facility] Start: 08-04-2022 End: 08-05-2022 ambulatory MARCIA W SIDEWHITNEY Facility:[facility] Start: 07-10-2022 End: 07-11-2022 ambulatory MARCIA W SIDEWHITNEY Facility:[facility] Start: 07-10-2022 End: 07-10-2022 Patient encounter procedure MARCIA JUAREZ [facility] Start: 06-23-2022 ambulatory MSN, GAME WARDEN-MUSTAPHA Monzon Facility:[facility] Start: 03-20-2022 Letter encounter Ellie mcclellan Start: 03-14-2022 End: 03-14-2022 Follow-up encounter Oral Surgery Executive Legal Secretary Work Phone: [facility] Start: 03-14-2022 End: 03-14-2022 Telemedicine consultation with patient Oral Executive Legal Secretary Work Phone: [facility] Comment on above: Post-operative state (Primary Dx) Start: 03-14-2022 End: 03-15-2022 ambulatory UNKNOWN PROVIDER Facility:[facility] Start: 03-02-2022 End: 03-02-2022 ambulatory CANDY MORA Facility:[facility] Start: 03-02-2022 End: 03-02-2022 Subsequent hospital visit by physician Candy Mora DDS Work Phone: [facility] Comment on above: 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) Start: 02-23-2022 Telephone encounter Ashley hurd RN [facility] Pre [facility] Comment on above: Pre-surgical Evaluat ion ( Pre-op COVID testing not needed ) Start: 02-19-2022 End: 02-19-2022 Emergency department patient visit Andrea Faustin [facility] Start: 02-16-2022 ambulatory UNKNOWN PROVIDER Facili ty:[facility] Start: 02-16-2022 Encounter for other preprocedural examination UNKNOWN PROVIDER [facility] Start: 02-15-2022 End: 02-15-2022 Nursing evaluation of patient and report Pse Rn [facility] Comment on above: Preop examination (P rimary Dx) Start: 02-15-2022 End: 02-15-2022 Preprocedural examination done Pse Rn [facility] Start: 02-15-2022 Telephone encounter Katherine Thrasher RN Work Phone: [facility] Comment on above: Pre-surgical Evaluat ion (Not available/) Start: 02-04-2022 End: 02-04-2022 Emergency department patient visit Reece Yip [facility] Start: 01-30-2022 Letter encounter [facility] [employer] Start: 01-16-2022 End: 01-18-2022 ambulatory UNKNOWN PROVIDER Facility:[facility] Start: 01-16-2022 End: 01-16-2022 Patient encounter procedure Candy Mora DDS Work Phone: [facility] Comment on above: 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); Body mass index (BMI) 33.0-33.9, adult Start: 12-27-2021 ambulatory NAN SANDERSMER Facility: [facility] Start: 12-19-2021 Letter encounter Ellie jimenez Start: 12-15-2021 End: 12-15-2021 ambulatory NAN LUCIEN Facility:[facility] Start: 11-09-2021 ambulatory NAN LUCIEN Facility: [facility] Start: 09-29-2021 End: 10-03-2021 Patient encounter procedure Jayme Marquez DDS Work Phone: [facility] Comment on above: Caries (Primary Dx) Start: 09-29-2021 End: 10-03-2021 ambulatory UNKNOWN PROVIDER Facility:[facility] Start: 09-28-2021 End: 09-30-2021 ambulatory UNKNOWN PROVIDER Facility:[facility] Start: 09-28-2021 End: 09-30-2021 Patient encounter procedure Jayme Marquez DDS Work Phone: [facility] Start: 08-27-2021 End: 08-27-2021 Emergency department patient visit Lane Berger [facility] Start: 04-19-[address] DOCTOR MATHEWS Facility :[facility] Start: 04-12-2021 End: 04-12-[address] RESHMA TATE Facility:[facility] Start: 04-08-2021 End: 04-08-2021 ambulatory AMBER LUNSFORD Facility:[facility] Start: 04-06-2021 End: 07-05-2021 Patient encounter procedure Lissy Allen [facility] Start: 04-06-[address] RESHMA TATE Facility :[facility] Start: 04-04-2021 End: 04-05-[address] DOCTOR MATHEWS Facility:[facility] Start: 04-01-2021 End: 04-01-[address] RESHMA TATE Facility:[facility]1 Start: 03-30-2021 End: 03-31-[address] RESHMA TATE Facility:[facility] Start: 03-29-2021 End: 03-29-[address] RESHMA TATE Facility:[facility] Start: 03-27-2021 End: 03-27-[address] RUDDY HERNÁNDEZ Facility:[facility] Start: 03-24-2021 End: 03-25-[address] DOCTOR MATHEWS Facility:[facility] Start: 03-23-2021 End: 03-23-[address] DOCTOR MATHEWS Facility:[facility] Start: 05-31-2020 RhD negative Lissy Allen [facility] Start: 12-27-2018 End: 12-27-2018 Subsequent hospital visit by physician [facility] Procedures Date Procedure Procedure Detail Performing Clinician Start: 03-02-2022 Urine test visual color cmprsn jamess Bhavesh Cameron DMD Work Phone: section Lissy Allen section Lissy Allen Fracture of mandible , closed (disorder) Lissy Allen Plan of Treatment Date Care Activity Detail Author Start: 2048 Shingles (RZV) Vacci ne (1 of 2) Shingles (RZV) Vaccine (1 of 2) [facility] Start: 01-08-2027 Tetanus vaccination Tetanus (T d or Tdap) Booster [facility] Start: 03-15-2022 End: 03-15-2022 Telemedicine consultation with patient 03/15/2022 Telemedicine Oral Surgery Candy Mora DDS [address] [place] [id number] [facility] Surgery Start: 03-14-2022 End: 03-14-2022 Telemedicine consultation with patient 03/14/2022 Telemedicine Oral Surgery [facility] Oral Surgery Start: 03-02-2022 End: 03-02-2022 EXTRACTION, TOOTH EXTRACTION, TOOTH Routine scheduled 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 03/02/2022 1:[address] Start: 03-02-2022 End: 03-02-2022 Admission to same day surgery center 03/02/2022 Surgery Ambulatory Surgery Candy Mora DDS [address] [place] [id number] EXTRACTION, TOOTH - #2, 15, 18, 19, 20, [address] [facility] [place] Comment on above: EXTRACTION, TOOTH - #2, 15, 18, 19, 20, 30 Start: 03-02-2022 End: 03-02-2022 EXTRACTION, TOOTH EXTRACTION, TOOTH Routine scheduled 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 03/02/2022 11:[address] Start: 03-02-2022 Subsequent hospital visit by physician 03/02/2022 Hospital Encounter Ambulatory Surgery Candy Mora DDS [address] [place] [id number] [facility] [place] Start: 03-02-2022 End: 03-02-2022 Admission to same day surgery center 03/02/2022 Surgery Ambulatory Surgery Candy Mora, CATALINOS [address] [place] [id number] EXTRACTION, TOOTH - #2, 15, 18, 19, 20, 30 [facility] Ambulatory Surgery Comment on above: EXTRACTION, TOOTH - #2, 15, 18, 19, 20, 30 Start: 03-02-2022 End: 03-02-2022 EXTRACTION, TOOTH EXTRACTION, TOOTH Routine scheduled 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 03/02/2022 9:51 AM [facility] Start: 03-02-2022 Subsequent hospital visit by physician 03/02/2022 Hospital Encounter Ambulatory Surgery Candy Mora, ERICA [address] [place] [address] [facility] Ambulatory Surgery Start: 02-15-2022 End: 02-15-2022 Nursing evaluation of patient and report 02/15/2022 Nurse Visit Presurgical Evaluation [facility] Pre Surgical Evaluation Start: 01-16-2022 End: 01-16-2022 Patient encounter procedure 01/16/2022 Office Visit Oral Surgery Candy Mora, Jose Manuel [address] [place] [address] [facility] Start: 12-17-2021 Influenza vaccination [facility] Start: 10-15-2020 COVID-19 Vaccine (2 - Booster for Ilda series) COVID-19 Vaccine (2 - Booster for Ilda series) [facility] Start: 06-16-2019 Screening for malign ant neoplasm of cervix Pap Smear [facility] Start: 01-03-2019 End: 01-03-2019 Appointment 01/03/2019 Appointment Psychiatry Noreen Jacobo, [facility] Start: 11-17-2018 Influenza vaccination Flu vaccine (# 1) [facility], [place] Start: 2017 DTaP/Tdap/Td vaccine (1 - Tdap) DTaP/Tdap/Td vaccine (1 - Tdap) [place], [place] Start: 2016 Hepatitis C screening Hepatitis C An tibody [facility] Start: 2016 Screening for Chlamy kentrell trachomatis STI Screening (Age 18-24) [facility] Start: 2014 Chlamydia screen Chlamydia screen [place], [place] Start: 2014 Meningococcal B (Bexsero,OMV) Vaccine (Optional,16-23 years) (#1) Meningococcal B (Bexsero,OMV) Vaccine (Optional,16-23 years) (#1) [facility] Start: 2013 HIV screen HIV screen [place], [place] Start: 2013 HIV screening HIV Test [facility] Start: 2013 HPV vaccine (1 - Fem shayna 3-dose series) HPV vaccine (1 - Female 3-dose series) [place], [place] Start: 06-16-2011 Varicella Vaccine (1 of 2 - 13+ 2-dose series) Varicella Vaccine (1 of 2 - 13+ 2-dose series) [place], [place] extraction, erupted tooth or exposed root (elevation and/or forceps removal) EXTRACTION ERUPTED TOOTH/EXR Procedures Routine 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 Ordered: 03/02/2022 [facility] Phone: Comment on above: Ordered: 03/02/2022 EXTRACTION, TOOTH EXTRACTION, TO OTH Routine scheduled 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 [facility] Immunizations Immunization Date Immunization Notes Care Provider Wilver rodrigues 08-20-2020 [facility] SARS-COV-2 (COVID-19) vaccine, vector non-replicating, recombinant spike protein-Ad26, preservative free, 0.5 mL (WRB=712) Jayme Marquez DDJose Manuel Work Phone: [facility] Comment on above: Result Comment: 2022: TPVAL 01-08-2017 tetanus toxoid, redu allegra diphtheria toxoid, and acellular pertussis vaccine, adsorbed; Translations: [Adacel (Tdap)] [facility] 05-10-2015 hepatitis A vaccine, pediatric/adolescent dosage, 2 dose schedule Jayme Al-Mashni DDS Work Phone: [facility] 05-10-2015 hepatitis A vaccine, unspecified formulation MARCIA SIDELL [facility] 05-10-2015 HPV, unspecified formulation MARCIA SIDELL [facility] 05-10-2015 human papilloma viru s vaccine, quadrivalent Jayme Al-Kikahni DDS Work Phone: [facility] 10-30-2014 hepatitis A vaccine, pediatric/adolescent dosage, 2 dose schedule Jayme Yury-Kikahni DDS Work Phone: [facility] 10-30-2014 hepatitis A vaccine, unspecified formulation MARCIA SIDELL [facility] 10-30-2014 HPV, unspecified formulation MARCIA SIDELL [facility] 10-30-2014 human papilloma viru s vaccine, quadrivalent Jayme Al-Kikahni DDS Work Phone: [facility] 10-30-2014 measles, mumps and rubella virus vaccine [facility]-Sandyi DDS Work Phone: [facility] 10-30-2014 meningococcal ACWY vaccine, unspecified formulation MARCIA SIDELL [facility] 10-30-2014 meningococcal polysaccharide (groups A, C, Y and W-135) diphtheria toxoid conjugate vaccine (MCV4P) [facility] DDS Work Phone: [facility] 11-07-2010 HPV, unspecified formulation Jayme Al-Kikahni DDS Work Phone: [facility] 11-07-2010 tetanus toxoid, redu allegra diphtheria toxoid, and acellular pertussis vaccine, adsorbed Jayme Al-Sandyi DDS Work Phone: [facility] 12-16-1999 diphtheria, tetanus toxoids and acellular pertussis vaccine, unspecified formulation Jayme Yury-Kikahni DDS Work Phone: [facility] 12-16-1999 DTaP, unspecified formulation MARCIA SIDELL [facility] 12-16-1999 pneumococcal conjuga te vaccine, 13 valent MARCIA SIDELL [facility] 12-16-1999 pneumococcal conjuga te vaccine, 7 valent Jayme Al-Mashni DDS Work Phone: [facility] 09-14-1999 diphtheria, tetanus toxoids and acellular pertussis vaccine, unspecified formulation Jayme Al-Kikahni DDS Work Phone: [facility] 09-14-1999 DTaP, unspecified formulation [facility]ARCIA SIDELL [facility] 09-14-1999 haemophilus influenz ae type b vaccine, PRP-OMP conjugate Jayme Yury-Sandyi DDS Work Phone: [facility] 09-14-1999 hepatitis B vaccine, pediatric or pediatric/adolescent dosage Jayme Yury-Sandyi DDS Work Phone: [facility] 09-14-1999 measles, mumps and rubella virus vaccine Jayme Yury-Kikahni DDS Work Phone: [facility] 09-14-1999 poliovirus vaccine, inactivated Jayme -Sandyi DDS Work Phone: [facility] 09-14-1999 poliovirus vaccine, unspecified formulation MARCIA SIDELL [facility] 09-14-1999 varicella virus vaccine Lait h Yury-Sandyi DDS Work Phone: [facility] 1998 diphtheria, tetanus toxoids and acellular pertussis vaccine, unspecified formulation Jayme Al-Kikahni DDS Work Phone: [facility] 1998 DTaP, unspecified formulation [facility] S[facility] 1998 haemophilus influenz ae type b vaccine, PRP-OMP conjugate Jayme Al-Mashni DDS Work Phone: [facility] 1998 poliovirus vaccine, inactivated Jayme Al-Mashni DDS Work Phone: [facility] 1998 poliovirus vaccine, unspecified formulation [facility]ARCIA SIDELL [facility] 1998 diphtheria, tetanus toxoids and acellular pertussis vaccine, unspecified formulation Jayme Al-Mashni DDS Work Phone: [facility] 1998 DTaP, unspecified formulation [facility] SIDE[facility] 1998 haemophilus influenz ae type b vaccine, PRP-OMP conjugate Jayme Al-Mashni DDS Work Phone: [facility] 1998 hepatitis B vaccine, pediatric or pediatric/adolescent dosage Jayme Al-Mashni DDS Work Phone: [facility] 1998 poliovirus vaccine, inactivated Jayme Al-Mashni DDS Work Phone: [facility] 1998 poliovirus vaccine, unspecified formulation [facility]IA SIDE[facility] 1998 hepatitis B vaccine, pediatric or pediatric/adolescent dosage Jayme Al-Mashni DDS Work Phone: [facility] Payers Date Payer Category Payer Self-pay 2022 Unknown [id number] 2011 Medicaid [id number] 1998 Unknown [id number] 2.16.84 0.1.251845.3.579.2.593 1998 Unknown [id number] 2.16.84 0.1.910905.3.579.2.593 1998 Unknown [id number] 2.16.84 0.1.492113.3.579.2.593 1998 Unknown [id number] 2.16.84 0.1.450689.3.579.2.593 1998 Unknown [id number] 2.16.84 0.1.414976.3.579.2.593 1998 Unknown [id number] 2.16.84 0.1.737564.3.579.2.593 1998 Unknown [id number] 2.16.84 0.1.480534.3.579.2.593 1998 Unknown [id number] 2.16.84 0.1.303400.3.579.2.593 1998 Unknown [id number] 2.16.84 0.1.564819.3.579.2.593 1998 Unknown [id number] 2.16.84 0.1.911585.3.579.2.593 1998 Unknown [id number] 2.16.84 0.1.515144.3.579.2.593 1998 Unknown [id number] 2.16.84 0.1.868186.3.579.2.593 1998 Unknown [id number] 2.16.84 0.1.780791.3.579.2.593 1998 Unknown [id number] 2.16.84 0.1.467642.3.579.2.593 1998 Unknown [id number] 2.16.84 0.1.652118.3.579.2.593 1998 Unknown [id number] 2.16. 840.1.356596.3.579.2.732 1998 Unknown [id number] 2.16. 840.1.172620.3.579.2.732 1998 Unknown [id number] 2.16. 840.1.412918.3.579.2.732 1998 Unknown [id number] 2.16. 840.1.324554.3.579.2.732 1998 Unknown [id number] 2.16. 840.1.535874.3.579.2.732 1998 Unknown [id number] 2.16. 840.1.955029.3.579.2.732 1998 Unknown [id number] 2.16.8 40.1.761605.3.579.2.727 1998 Unknown [id number] 2.16.8 40.1.839860.3.579.2.727 1998 Unknown [id number] 2.16.8 40.1.558687.3.579.2.727 1998 Unknown [id number] 2.16.8 40.1.723497.3.579.2.727 1998 Unknown [id number] 2.16.8 40.1.291763.3.579.2.727 1998 Unknown [id number] 2.16.8 40.1.822108.3.579.2.727 1998 Unknown [id number] 2.16.8 40.1.582471.3.579.2.727 1998 Unknown [id number] 2.16.8 40.1.077048.3.579.2.727 1998 Unknown [id number] 2.16.8 40.1.448518.3.579.2.727 1959 Self-pay [id number] 1959 Unknown [id number] Unknown [id number] 2.16.8 40.1.460801.3.579.2.531 Social History Date Type Detail Facility Tobacco smoking status LAIS Unknown if ever smoked [place], [place] Start: 1998 Sex Assigned At Not on file [facility] [place] Start: 09-14-2020 End: 04-23-2023 Tobacco smoking status Ex-smoker (finding) [facility] Sex Assigned At Female [facility] Tobacco [facility] Comment on above: denies Tobacco smoking status NHIS Tobacco smoking consumption unknown [facility] Work Phone: Tobacco smoking status No Smoking Status Entered [facility] Start: 02-16-2022 Tobacco smoking status NHIS Never smoked tobacco [facility] Work Phone: Start: 02-16-2022 Tobacco use and exposure Smokeless tobacco non-user [facility] Start: 02-16-2022 End: 03-03-2022 Alcohol intake Lifetime non-drinker (finding) [facility] Tobacco smoking status Never [facility] Functional Status Date Assessment Result Facility 05-02-2023 Functional Status N/A [facility] 04-23-2023 Functional Status N/A [facility] 02-02-2023 Functional Status N/A [facility] 10-16-2022 Functional Status N/A [facility] [place] 07-10-2022 Functional Status N/A [facility] [place] 02-19-2022 Functional Status N/A [facility] 02-04-2022 Functional Status N/A [facility] 08-27-2021 Functional Status N/A [facility] Clinical Notes 08-27-2021 to 05-02-2023 Note Date & Type Note Facility 05-02-2023 Evaluation + Plan note Extrac keara from: Title:ED Note Author:Carlos Wolf PA-C te:05/02/23 Dx: URI (upper respiratory i nfection) J06.9 [facility]02-14-2024 Hospital Discharge instructions Patient Education 05/02/2023 09:22:46 Upper Respiratory Infection, Adult, Jpso-lg-Najx Upper Respiratory Infection, Adult An upper respiratory infection (URI) affects the nose, throat, and upper airways that lead to the lungs. The most common type of URI is often called the common cold. URIs usually get better on their own, without medical treatment. What are the causes? A URI is caused by a germ (virus). You may catch these germs by: Breathing in droplets from an infected person's cough or sneeze. Touching something that has the germ on it (is contaminated) and then touching your mouth, nose, oreyes. What increases the risk? You are more likely to get a URI if: You are very young or very old. You have close contact with others, such as at work, school, or a health care facility. You smoke. You have long-term (chronic) heart or lung disease. You have a weakened disease-fighting system (immune system). You have nasal allergies or asthma. You have a lot of stress. You have poor nutrition. What are the signs or symptoms? Runny or stuffy (congested) nose. Cough. Sneezing. Sore throat. Headache. Feeling tired (fatigue). Fever. Not wanting to eat as much as usual. Pain in your forehead, behind your eyes, and over your cheekbones (sinus pain). Muscle aches. Redness or irritation of the eyes. Pressure in the ears or face. How is this treated? URIs usually get better on their own within 7 10 days. Medicines cannot cure URIs, but your doctor may recommend certain medicines to help relieve symptoms, such as: Rpsg-atg-vrsiphz cold medicines. Medicines to reduce coughing (cough suppressants). Coughing is a type of defense against infection that helps to clear the nose, throat, windpipe, and lungs (respiratory system). Take these medicinesonly as told by your doctor. Medicines to lower your fever. Follow these instructions at home: Activity Rest as needed. If you have a fever, stay home from work or school until your fever is gone, or until your doctor says you may return to work or school. ?You should stay home until you cannot spread the infection anymore (you are not contagious). ?Your doctor may have you wear a face mask so you have less risk of spreading the infection. Relieving symptoms Rinse your mouth often with salt water. To make salt water, dissolve 1 tsp (3 6 g) of salt in 1 cup(237 mL) of warm water. Use a cool-mist humidifier to add moisture to the air. This can help you breathe more easily. Eating and drinking Drink enough fluid to keep your pee (urine) pale yellow. Eat soups and other clear broths. General instructions Take ysrf-kox-lkcdqwf and prescription medicines only as told by your doctor. Do not smoke or use any products that contain nicotine or tobacco. If you need help quitting, ask your doctor. Avoid being where people are smoking (avoid secondhand smoke). Stay up to date on all your shots (immunizations), and get the flu shot every year. Keep all follow-up visits. How to prevent the spread of infection to others Wash your hands with soap and water for at least 20 seconds. If you cannot use soap and water, use hand principal engineer. Avoid touching your mouth, face, eyes, or nose. Cough or sneeze into a tissue or your sleeve or elbow. Do not cough or sneeze into your hand or into the air. Contact a doctor if: You are getting worse, not better. You have any of these: ?A fever or chills. ?Brown or red mucus in your nose. ?Yellow or brown fluid (discharge)coming from your nose. ?Pain in your face, especially when you bend forward. ?Swollen neck glands. ?Pain when you swallow. ?White areas in the back of your throat. Get help right away if: You have shortness of breath that gets worse. You have very bad or constant: ?Headache. ?Ear pain. ?Pain in your forehead, behind your eyes, and over your cheekbones (sinus pain). ?Chest pain. You have long-lasting (chronic) lung disease along with any of these: ?Making high-pitched whistling sounds when you breathe, most often when you breathe out (wheezing). ?Long-lasting cough (more than 14 days). ?Coughing up blood. ?A change in your usual mucus. You have a stiff neck. You have changes in your: ?Vision. ?Hearing. ?Thinking. ?Mood. These symptoms may be an emergency. Get help right away. Call 911. Do not wait to see if the symptoms will go away. Do not drive yourself to the hospital. Summary An upper respiratory infection (URI) is caused by a germ (virus). The most common type of URI is often called the common cold. URIs usually get better within 7 10 days. Take mglr-lff-bbjvrhn and prescription medicines only as told by your doctor. This information is not intended to replace advice given to you by your health care provider. Make sure you discuss any questions you have with your health care provider. Document Revised: 10/05/2021 Document Reviewed: 10/05/2021 [place] [address] Patient Education 2022 [employer]. Follow Up Care 05/02/2023 08:17:23 With:Jewell Monzon Address: [address] [place] [address] [place] [address] [phone] Business (1) When:05/05/2023 09:05:10 Comments:Follow-up with your primary care provider in 3 to 5 days. If symptoms worsen, do not improve, or new symptoms arise please report back to emergency department for further evaluation. [facility]02-05-2024 Hospital Discharge instructions Patient Education 04/23/2023 20:12:56 Back Injury Prevention, Vvum-pi-Yuwb Back Injury Prevention Back injuries can be very painful. They can also be difficult to heal. After having one back injury, you are more likely to have another one. It is important to learn how to avoid injuring or re-injuring your back. The following tips can help you prevent a back injury. What actions can I take to prevent back injuries? Changes in your diet Talk with your doctor about what to eat. Some foods can help make the bones strong. Talk with your doctor about how much calcium and vitamin D you need each day. These nutrients help to prevent weakening of the bones (osteoporosis). Eat foods that have calcium. These include: ?Dairy products. ?Green leafy vegetables. ?Food and drinks that have calcium added to them (are fortified). Eat foods that have vitamin D. These include: ?Milk. ?Food and drinks that have vitamin D added to them. If needed, take supplements and vitamins as told by your doctor. Physical fitness Physical fitness makes your bones and muscles strong. It also improves your balance and strength. Exercise for 30 minutes a day on most days of the week, or as told by your doctor. Make sure to: ?Do aerobic exercises, such as walking, jogging, biking, or swimming. ?Do exercises that increase balance and strength, such as vin chi and yoga. ?Do stretching exercises. ?Develop strong belly (abdominal) muscles. Your belly muscles help to support your back. Stay at a healthy weight. This lowers your risk of a back injury. Good posture Prevent back injuries by developing and keeping a good posture. To do this: Sit up straight and stand up straight. Avoid leaning forward when you sit or hunching over when youstand. Choose chairs that have good low-back (lumbar) support. If you work at a desk: ?Sit close to it so you do not need to lean over. ?Keep your chin tucked in. ?Keep your neck drawn back. ?Keep your elbows bent so that your arms make a corner (right angle). When you drive: ?Sit high and close to the steering wheel. Add low-back support to your car seat, if needed. ?Take breaks every hour if you are driving for long periods of time. Avoid sitting or standing in one position for very long. Take breaks to get up, stretch, and walk around at least once every hour. Sleep on your side with your knees slightly bent, or sleep on your back with a pillow under your knees. Keep your head and neck in a straight line with your spine (neutral position) when using electronics like smartphones or tablets. To do this: ?Raise your smartphone or tablet to look at it instead of bending your head or neck to look down. ?Put the smartphone or tablet at the level of your face while looking at the screen. Lifting, twisting, and reaching Heavy lifting ?Avoid heavy lifting, especially lifting over and over again. If you must do heavy lifting: ?Stretch before lifting. ?Work slowly. ?Rest between lifts. ?Use a tool such as a cart or a venita to move objects. ?Make a few small trips instead of carrying one heavy load. ?Ask for help when you need it, especially when moving big objects. ?Follow these steps when lifting: ?Stand with your feet shoulder-width apart. ?Get as close to the object as you can. Do not pickling drum operator a heavy object that is far from your body. ?Use handles or lifting straps if you have them. ?Bend at your knees. Squat down, but keep your heels off the floor. ?Keep your shoulders back. Keep your chin tucked in. Keep your back straight. ?Lift the object slowly while you tighten the muscles in your legs, belly, and butt. Keep the object as close to the center of your body as you can. ?Follow these steps when putting down a heavy load: ?Stand with your feet shoulder-width apart. ?Lower the object slowly while you tighten the muscles in your legs, belly, and butt. Keep the object as close to the center of your body as you can. ?Keep your shoulders back. Keep your chin tucked in. Keep your back straight. ?Bend at your knees. Squat down, but keep your heels off the floor. ?Use handles or lifting straps if you have them. Twisting and reaching ?Avoid lifting heavy objects above your waist. ?Do not twist at your waist while you are lifting or carrying a load. If you need to turn, move your feet. ?Do not bend over without bending at your knees. ?Avoid reaching over your head, across a table, or for an object on a high surface. Other things to do Avoid wet floors and icy ground. Keep sidewalks clear of ice to prevent falls. Do not sleep on a mattress that is too soft or too hard. Put heavier objects on shelves at waist level. Put typo machine operator objects on lower or higher shelves. Find ways to lower your stress, such as: ?Exercise. ?Massage. ?Using a technique to help you relax. Talk with your doctor if you feel worried or sad (depressed). These conditions can make back pain worse. Wear flat heeled shoes with cushioned soles. Use both shoulder straps when carrying a backpack. Do not smoke or use any products that contain nicotine or tobacco. If you need help quitting, ask your doctor. Summary Back injuries can be very painful and difficult to heal. You can keep your back healthy by making certain changes. These include eating foods that make bones strong, working on being physically fit, developing a good posture, and lifting heavy objects in asafe way. Talk with your doctor about how much calcium and vitamin D you need each day. These nutrients help to prevent weakening of the bones (osteoporosis). This information is not intended to replace advice given to you by your health care provider. Make sure you discuss any questions you have with your health care provider. Document Revised: 06/27/2021 Document Reviewed: 06/27/2021 Elsevier Patient Education 2022 [employer]. 04/23/2023 20:12:56 Back Exercises, [id number] Back Exercises These exercises help to make your trunk and back strong. They also help to keep the lower back flexible. Doing these exercises can help to prevent or lessen pain in your lower back. If you have back pain, try to do these exercises 2 3 times each day or as told by your doctor. As you get better, do the exercises once each day. Repeat the exercises more often as told by your doctor. To stop back pain from coming back, do the exercises once each day, or as told by your doctor. Do exercises exactly as told by your doctor. Stop right away if you feel sudden pain or your pain gets worse. Exercises Single knee to chest Do these steps 3 5 times in a row for each le.Lie on your back on a firm bed or the floor with your legs stretched out. 2.Bring one knee to your chest. 3.Grab your knee or thigh with both hands and hold it in place. 4.Pull on your knee until you feel a gentle stretch in your lower back or butt. 5.Keep doing the stretch for 10 30 seconds. 6.Slowly let go of your leg and straighten it. Pelvic tilt Do these steps 5 10 times in a row: 1.Lie on your back on a firm bed or the floor with your legs stretched out. 2.Bend your knees so they point up to the ceiling. Your feet should be flat on the floor. 3.Tighten your lower belly (abdomen) muscles to press your lower back against the floor. This will make your tailbone point up to the ceiling instead of pointing down to your feet or the floor. 4.Stay in this position for 5 10 seconds while you gently tighten your muscles and breathe evenly. Cat cow Do these steps until your lower back bends more easily: 1.Get on your hands and knees on a firm bed or the floor. Keep your hands under your shoulders, andkeep your knees under your hips. You may put padding under your knees. 2.Let your head hang down toward your chest. Tighten (contract) the muscles in your belly. Point your tailbone toward the floor so your lower back becomes rounded like the back of a cat. 3.Stay in this position for 5 seconds. 4.Slowly lift your head. Let the muscles of your belly relax. Point your tailbone up toward the ceiling so your back forms a sagging arch like the back of a cow. 5.Stay in this position for 5 seconds. Press-ups Do these steps 5 10 times in a row: 1.Lie on your belly (face-down) on a firm bed or the floor. 2.Place your hands near your head, about shoulder-width apart. 3.While you keep your back relaxed and keep your hips on the floor, slowly straighten your arms to raise the top half of your body and lift your shoulders. Do not use your back muscles. You may change where you place your hands to make yourself more comfortable. 4.Stay in this position for 5 seconds. Keep your back relaxed. 5.Slowly return to lying flat on the floor. Bridges Do these steps 10 times in a row: 1.Lie on your back on a firm bed or the floor. 2.Bend your knees so they point up to the ceiling. Your feet should be flat on the floor. Your armsshould be flat at your sides, next to your body. 3.Tighten your butt muscles and lift your butt off the floor until your waist is almost as high as your knees. If you do not feel the muscles working in your butt and the back of your thighs, slide your feet 1 2 inches (2.5 5 cm) farther away from your butt. 4.Stay in this position for 3 5 seconds. 5.Slowly lower your butt to the floor, and let your butt muscles relax. If this exercise is too easy, try doing it with your arms crossed over your chest. Belly crunches Do these steps 5 10 times in a row: 1.Lie on your back on a firm bed or the floor with your legs stretched out. 2.Bend your knees so they point up to the ceiling. Your feet should be flat on the floor. 3.Cross your arms over your chest. 4.Tip your chin a little bit toward your chest, but do not bend your neck. 5.Tighten your belly muscles and slowly raise your chest just enough to lift your shoulder blades atiny bit off the floor. Avoid raising your body higher than that because it can put too much stresson your lower back. 6.Slowly lower your chest and your head to the floor. Back lifts Do these steps 5 10 times in a row: 1.Lie on your belly (face-down) with your arms at your sides, and rest your forehead on the floor. 2.Tighten the muscles in your legs and your butt. 3.Slowly lift your chest off the floor while you keep your hips on the floor. Keep the back of yourhead in line with the curve in your back. Look at the floor while you do this. 4.Stay in this position for 3 5 seconds. 5.Slowly lower your chest and your face to the floor. Contact a doctor if: Your back pain gets a lot worse when you do an exercise. Your back pain does not get better within 2 hours after you exercise. If you have any of these problems, stop doing the exercises. Do not do them again unless your doctor says it is okay. Get help right away if: You have sudden, very bad back pain. If this happens, stop doing the exercises. Do not do them again unless your doctor says it is okay. This information is not intended to replace advice given to you by your health care provider. Make sure you discuss any questions you have with your health care provider. Document Revised: 05/18/2021 Document Reviewed: 05/18/2021 [employer] Patient Education 2022 [employer]. Follow Up Care 04/23/2023 19:12:28 With:Jewell Monzon Address: [address] [place] [address] [place] [address] [phone] Business (1) When:04/26/2023 20:04:20 Comments:Follow-up with your primary care provider in 3 to 5 days. If symptoms worsen, do not improve, or new symptoms arise please report back to emergency department for further evaluation. [facility]02-05-2024 Evaluation + Plan noteExtracted from: Title:ED Note Author:Carlos Wolf PA-C te:04/23/23 Back spasm (M62.830: Muscle spasm of back) Fall (W19.XXXA: Unspecified fall, initial encounter) Orders: CT Head or Brain w/o Contrast CT Spine Cervical w/o Contrast [facility]01-08-2024 Hospital Discharge instructions Patient Education 03/26/2023 19:46:40 Chronic Migraine Headache Chronic Migraine Headache A migraine is a type of headache that is usually stronger and more sudden than other headaches. Migraines are characterized by an intense pulsing, throbbing pain that is usually only present on one side of the head. Migraine pain usually gets worse with activity. Migraines can cause nausea, vomiting, sensitivity to light and sound, and vision changes. Migrainesthat keep coming back are called recurrent migraines. A migraine is called a chronic migraine if ithappens at least 15 days in a month for more than 3 months. Talk with your health care provider about what things may bring on (trigger) your migraines. What are the causes? The exact cause of this condition is not known. However, a migraine may be caused when nerves in the brain become irritated and release chemicals that cause inflammation of blood vessels. The inflammation of the blood vessels causes pain. Migraines may be triggered or caused by: Smoking. Certain foods and drinks, such as: ?Aged cheese. ?Chocolate. ?Alcohol. ?Caffeine. ?Foods or drinks that contain nitrates, glutamate, aspartame, MSG, or tyramine. Medicines, such as control pills or some blood pressure medicines. Other things that may trigger a migraine include: Menstruation. Emotional stress. Lack of sleep or too much sleep. Tiredness (fatigue). Bright lights or loud noises. Odors. Weather changes and high altitude. What increases the risk? The following factors may make you more likely to experience chronic migraine: Having migraines or a family history of migraines. Having a mental health condition, such as depression or anxiety. Having to take a lot of pain medicine. Having sleep problems. Having heart disease, diabetes, or obesity. What are the signs or symptoms? Symptoms of a migraine vary for each person and may include: Pulsating or throbbing pain. Pain that is usually only present on one side of the head. In some cases, the pain may be on both sides of the head or around the head or neck. Severe pain that prevents you from doing daily activities. Pain that gets worse with physical activity. Nausea, vomiting, or both. Pain with exposure to bright lights, loud noises, or activity. General sensitivity to bright lights, loud noises, or smells. Dizziness. A sign that a migraine is becoming chronic is an increasing number of migraine episodes. It is considered chronic if the migraine happens at least 15 days in a month for more than 3 months. How is this diagnosed? This condition is often diagnosed based on: Your symptoms and medical history. A physical exam. You may also have tests, including: A CT scan or an MRI of your brain. These imaging tests cannot diagnose migraines, but they can helpto rule out other causes of headaches. Taking fluid from the spine (lumbar puncture) and analyzing it (cerebrospinal fluid analysis, or CSF analysis). Blood tests. How is this treated? This condition is treated with: Medicines. These help to: ?Lessen pain and nausea. ?Prevent migraines. Lifestyle changes, such as changes to your diet or sleeping patterns. Behavior therapy. This may include: ?Relaxation training. ?Biofeedback. This is a treatment that teaches you to relax and use your brain to lower your heart rate and control your breathing. ?Cognitive behavioral therapy (CBT). This is a form of talk therapy. This therapy helps you set goals and follow up on the changes that you make. Acupuncture. Using a device that provides electrical stimulation to your nerves, which can relieve pain (neuromodulation therapy). Surgery, if the other treatments are not working. Follow these instructions at home: Medicines Take vala-vnx-hiqydid and prescription medicines only as told by your health care provider. Ask your health care provider if the medicine prescribed to you requires you to avoid driving or using machinery. Lifestyle Do not use any products that contain nicotine or tobacco, such as cigarettes, e- cigarettes, and chewing tobacco. If you need help quitting, ask your health care provider. Do not drink alcohol. Get 7 9 hours of sleep each night, or the amount of sleep recommended by your health care provider. Find ways to manage stress, such as meditation, deep breathing, or yoga. Maintain a healthy weight. If you need help losing weight, ask your health care provider. Exercise regularly. Aim for 150 minutes of moderate-intensity exercise, such as walking, biking, oryoga, or 75 minutes of vigorous exercise each week. Vigorous exercise includes running, circuit training, and swimming. General instructions Keep a journal to find out what triggers your migraines so you can avoid these triggers. For example, write down: ?What you eat and drink. ?How much sleep you get. ?Any change to your diet or medicines. Lie down in a dark, quiet room when you have a migraine. Try placing a cool towel over your head when you have a migraine. Keep lights dim, if bright lights bother you or make your migraines worse. Keep all follow-up visits as told by your health care provider. This is important. Where to find more information Coalition for Headache and Migraine Patients (CHAMP): headachemigraine.org [place] Migraine Foundation: americanmigrainefoundation.org National Headache Foundation: headaches.org Contact a health care provider if: Your pain does not improve, even with medicine. Your migraines continue to return, even with medicine. Get help right away if: Your migraine becomes severe and medicine does not help. You have a stiff neck and fever. You have a loss of vision. You have muscle weakness or loss of muscle control. You start losing your balance, or you have trouble walking. You feel like you may faint, or you faint. You start having sudden and unexpected, severe headaches. You have a seizure. Summary Migraine headaches are usually stronger and more sudden than other headaches. Migraines are characterized by an intense pulsing, throbbing pain that is usually only present on one side of the head. Migraines that keep coming back are called recurrent migraines. A migraine is called a chronic migraine if it happens 15 days in a month for more than 3 months. Certain things may trigger migraines, such as lack of sleep or too much sleep, smoking, certain foods, alcohol, stress, and certain medicines. Your treatment plan may include medicines, lifestyle changes, and behavior therapy. This information is not intended to replace advice given to you by your health care provider. Make sure you discuss any questions you have with your health care provider. Document Revised: 04/21/2020 Document Reviewed: 04/21/2020 [employer] Patient Education 2022 [employer]. 03/26/2023 19:46:33 DASH Eating Plan DASH Eating Plan DASH stands for Dietary Approaches to Stop Hypertension. The DASH eating plan is a healthy eating plan that has been shown to: Reduce high blood pressure (hypertension). Reduce your risk for type 2 diabetes, heart disease, and stroke. Help with weight loss. What are tips for following this plan? Reading food labels Check food labels for the amount of salt (sodium) per serving. Choose foods with less than 5 percent of the Daily Value of sodium. Generally, foods with less than 300 milligrams (mg) of sodium per serving fit into this eating plan. To find whole grains, look for the word whole as the first word in the ingredient list. Shopping Buy products labeled as low-sodium or no salt added. Buy fresh foods. Avoid canned foods and pre-made or frozen meals. Cooking Avoid adding salt when cooking. Use salt-free seasonings or herbs instead of table salt or sea salt. Check with your health care provider or pharmacist before using salt substitutes. Do not antoine foods. Cook foods using healthy methods such as baking, boiling, grilling, roasting, andbroiling instead. Cook with heart-healthy oils, such as olive, canola, avocado, soybean, or sunflower oil. Meal planning Eat a balanced diet that includes: ?4 or more servings of fruits and 4 or more servings of vegetables each day. Try to fill one-half of your plate with fruits and vegetables. ?6 8 servings of whole grains each day. ?Less than 6 oz (170 g) of lean meat, poultry, or fish each day. A 3-oz (85-g) serving of meat is about the same size as a deck of cards. One egg equals 1 oz (28 g). ?2 3 servings of low-fat dairy each day. One serving is 1 cup (237 mL). ?1 serving of nuts, seeds, or beans 5 times each week. ?2 3 servings of heart-healthy fats. Healthy fats called omega-3 fatty acids are found in foods such as walnuts, flaxseeds, fortified milks, and eggs. These fats are also found in cold-water fish, such as sardines, salmon, and mackerel. Limit how much you eat of: ?Canned or prepackaged foods. ?Food that is high in trans fat, such as some fried foods. ?Food that is high in saturated fat, such as fatty meat. ?Desserts and other sweets, sugary drinks, and other foods with added sugar. ?Full-fat dairy products. Do not salt foods before eating. Do not eat more than 4 egg yolks a week. Try to eat at least 2 vegetarian meals a week. Eat more home-cooked food and less restaurant, buffet, and fast food. Lifestyle When eating at a restaurant, ask that your food be prepared with less salt or no salt, if possible. If you drink alcohol: ?Limit how much you use to: ?0 1 drink a day for women who are not . ?0 2 drinks a day for men. ?Be aware of how much alcohol is in your drink. In the [place] one drink equals one 12 oz bottle of beer (355 mL), one 5 oz glass of wine (148 mL), or one 1 oz glass of hard liquor (44 mL). General information Avoid eating more than 2,300 mg of salt a day. If you have hypertension, you may need to reduce your sodium intake to 1,500 mg a day. Work with your health care provider to maintain a healthy body weight or to lose weight. Ask what an ideal weight is for you. Get at least 30 minutes of exercise that causes your heart to beat faster (aerobic exercise) most days of the week. Activities may include walking, swimming, or biking. Work with your health care provider or dietitian to adjust your eating plan to your individual calorie needs. What foods should I eat? Fruits All fresh, dried, or frozen fruit. Canned fruit in natural juice (without added sugar). Vegetables Fresh or frozen vegetables (raw, steamed, roasted, or grilled). Low-sodium or reduced-sodium tomatoand vegetable juice. Low-sodium or reduced-sodium tomato sauce and tomato paste. Low-sodium or reduced-sodium canned vegetables. Grains Whole-grain or whole-wheat bread. Whole-grain or whole-wheat pasta. Brown rice. Oatmeal. Quinoa. Bulgur. Whole-grain and low-sodium cereals. Tyesha bread. Low- fat, low-sodium crackers. Whole-wheat flour tortillas. Meats and other proteins Skinless chicken or turkey. Ground chicken or turkey. Pork with fat trimmed off. Fish and seafood. Egg whites. Dried beans, peas, or lentils. Unsalted nuts, nut butters, and seeds. Unsalted canned beans. Lean cuts of beef with fat trimmed off. Low-sodium, lean precooked or cured meat, such as sausages or meat loaves. Dairy Low-fat (1%) or fat-free (skim) milk. Reduced-fat, low-fat, or fat-free cheeses. Nonfat, low-sodiumricotta or cottage cheese. Low-fat or nonfat yogurt. Low-fat, low-sodium cheese. Fats and oils Soft margarine without trans fats. Vegetable oil. Reduced-fat, low-fat, or light mayonnaise and salad dressings (reduced-sodium). Canola, safflower, olive, avocado, soybean, and sunflower oils. Avocado. Seasonings and condiments Herbs. Spices. Seasoning mixes without salt. Other foods Unsalted popcorn and pretzels. Fat-free sweets. The items listed above may not be a complete list of foods and beverages you can eat. Contact a dietitian for more information. What foods should I avoid? Fruits Canned fruit in a light or heavy syrup. Fried fruit. Fruit in cream or butter sauce. Vegetables Creamed or fried vegetables. Vegetables in a cheese sauce. Regular canned vegetables (not low-sodium or reduced-sodium). Regular canned tomato sauce and paste (not low-sodium or reduced-sodium). Regular tomato and vegetable juice (not low-sodium or reduced-sodium). Pickles. Olives. Grains Baked goods made with fat, such as croissants, muffins, or some breads. Dry pasta or rice meal packs. Meats and other proteins Fatty cuts of meat. Ribs. Fried meat. Ibanez. Bologna, salami, and other precooked or cured meats, such as sausages or meat loaves. Fat from the back of a pig (fatback). Bratwurst. Salted nuts and seeds. Canned beans with added salt. Canned or smoked fish. Whole eggs or egg yolks. Chicken or turkey with skin. Dairy Whole or 2% milk, cream, and ieur-gdy-ubdu. Whole or full-fat cream cheese. Whole-fat or sweetened yogurt. Full-fat cheese. Nondairy creamers. Whipped toppings. Processed cheese and cheese spreads. Fats and oils Butter. Stick margarine. Lard. Shortening. Ghee. Ibanez fat. Tropical oils, such as coconut, palm kernel, or palm oil. Seasonings and condiments Onion salt, garlic salt, seasoned salt, table salt, and sea salt. Worcestershire sauce. Tartar sauce. Barbecue sauce. Teriyaki sauce. Soy sauce, including reduced-sodium. Steak sauce. Canned and packaged gravies. Fish sauce. Oyster sauce. Cocktail sauce. Store-bought horseradish. Ketchup. Mustard. Meat flavorings and tenderizers. Bouillon cubes. Hot sauces. Pre-made or packaged marinades. Pre-made or packaged taco seasonings. Relishes. Regular salad dressings. Other foods Salted popcorn and pretzels. The items listed above may not be a complete list of foods and beverages you should avoid. Contact a dietitian for more information. Where to find more information National Heart, Lung, and Blood [place]: www.nhlbi.nih.gov [place] Heart Association: www.heart.org Academy of Nutrition and Dietetics: www.eatright.org National Kidney Foundation: www.kidney.org Summary The DASH eating plan is a healthy eating plan that has been shown to reduce high blood pressure (hypertension). It may also reduce your risk for type 2 diabetes, heart disease, and stroke. When on the DASH eating plan, aim to eat more fresh fruits and vegetables, whole grains, lean proteins, low-fat dairy, and heart-healthy fats. With the DASH eating plan, you should limit salt (sodium) intake to 2,300 mg a day. If you have hypertension, you may need to reduce your sodium intake to 1,500 mg a day. Work with your health care provider or dietitian to adjust your eating plan to your individual calorie needs. This information is not intended to replace advice given to you by your health care provider. Make sure you discuss any questions you have with your health care provider. Document Revised: 02/06/2020 Document Reviewed: 02/06/2020 [employer] Patient Education 2022 [employer]. Follow Up Care 03/23/2023 16:09:40 With:Nicolás MINA, [employer], Jewell Alcala Address: [address] [place] [phone] When:Within 6 Month(s) Comments:chronic care [facility] Kishore 11-18-2023 Evaluation + Plan noteExtracted from: Title:ED Note Author:Earline Bond DO Date :02/03/23 Depression (F32.A: Depressio n, unspecified) Orders: Automated Diff CBC w/ Auto Diff Communication Order Comprehensive Metabolic Panel Consult to Mental Health Drug Screen Urine ECG 12 Lead Adult eGFR Ethanol Level Morphology Rapid COVID Antigen ([facility] [place] [place]) U Beta Hcg Qual [facility]11-18-2023 Hospital Discharge instructions Patient Education 02/03/2023 00:33:08 Managing Depression, Adult Managing Depression, Adult Depression is a mental health condition that affects your thoughts, feelings, and actions. Being diagnosed with depression can bring you relief if you did not know why you have felt or behaved a certain way. It could also leave you feeling overwhelmed with uncertainty about your future. Preparing yourself to manage your symptoms can help you feel more positive about your future. How to manage lifestyle changes Managing stress Stress is your body's reaction to life changes and events, both good and bad. Stress can add to your feelings of depression. Learning to manage your stress can help lessen your feelings of depression. Try some of the following approaches to reducing your stress (stress reduction techniques): Listen to music that you enjoy and that inspires you. Try using a meditation adi or take a meditation class. Develop a practice that helps you connect with your spiritual self. Walk in nature, pray, or go to a place of islam. Do some deep breathing. To do this, inhale slowly through your nose. Pause at the top of your inhale for a few seconds and then exhale slowly, letting your muscles relax. Practice yoga to help relax and work your muscles. Choose a stress reduction technique that suits your lifestyle and personality. These techniques take time and practice to develop. Set aside 5 15 minutes a day to do them. Therapists can offer training in these techniques. Other things you can do to manage stress include: Keeping a stress diary. Knowing your limits and saying no when you think something is too much. Paying attention to how you react to certain situations. You may not be able to control everything,but you can change your reaction. Adding humor to your life by watching funny films or TV shows. Making time for activities that you enjoy and that relax you. Medicines Medicines, such as antidepressants, are often a part of treatment for depression. Talk with your pharmacist or health care provider about all the medicines, supplements, and herbal products that you take, their possible side effects, and what medicines and other products are safe to take together. Make sure to report any side effects you may have to your health care provider. Relationships Your health care provider may suggest family therapy, couples therapy, or individual therapy as part of your treatment. How to recognize changes Everyone responds differently to treatment for depression. As you recover from depression, you may start to: Have more interest in doing activities. Feel less hopeless. Have more energy. Overeat less often, or have a better appetite. Have better mental focus. It is important to recognize if your depression is not getting better or is getting worse. The symptoms you had in the beginning may return, such as: Tiredness (fatigue) or low energy. Eating too much or too little. Sleeping too much or too little. Feeling restless, agitated, or hopeless. Trouble focusing or making decisions. Unexplained physical complaints. Feeling irritable, angry, or aggressive. If you or your family members notice these symptoms coming back, let your health care provider knowright away. Follow these instructions at home: Activity Try to get some form of exercise each day, such as walking, biking, swimming, or lifting weights. Practice stress reduction techniques. Engage your mind by taking a class or doing some volunteer work. Lifestyle Get the right amount and quality of sleep. Cut down on using caffeine, tobacco, alcohol, and other potentially harmful substances. Eat a healthy diet that includes plenty of vegetables, fruits, whole grains, low-fat dairy products, and lean protein. Do not eat a lot of foods that are high in solid fats, added sugars, or salt (sodium). General instructions Take yinc-hdn-duccckw and prescription medicines only as told by your health care provider. Keep all follow-up visits as told by your health care provider. This is important. Where to find support Talking to others Friends and family members can be sources of support and guidance. Talk to trusted friends or family members about your condition. Explain your symptoms to them, and let them know that you are working with a health care provider to treat your depression. Tell friends and family members how they also can be helpful. Finances Find appropriate mental health providers that fit with your financial situation. Talk with your health care provider about options to get reduced prices on your medicines. Where to find more information You can find support in your area from: Anxiety and Depression Association of [place] (ADAA): www.adaa.org Mental Health Mira: www.mentalhealthamerica.net National [place] on Mental Illness: www.caroline.org Contact a health care provider if: You stop taking your antidepressant medicines, and you have any of these symptoms: ?Nausea. ?Headache. ?Light-headedness. ?Chills and body aches. ?Not being able to sleep (insomnia). You or your friends and family think your depression is getting worse. Get help right away if: You have thoughts of hurting yourself or others. If you ever feel like you may hurt yourself or others, or have thoughts about taking your own life,get help right away. Go to your nearest emergency department or: Call your local emergency services (005 in the [place] Call a suicide crisis helpline, such as the National Suicide Prevention Lifeline at or 942 in the [place] This is open 24 hours a day in the [place] Text the Crisis Text Line at 327379 (in the [place] Summary If you are diagnosed with depression, preparing yourself to manage your symptoms is a good way to feel positive about your future. Work with your health care provider on a management plan that includes stress reduction techniques,medicines (if applicable), therapy, and healthy lifestyle habits. Keep talking with your health care provider about how your treatment is working. If you have thoughts about taking your own life, call a suicide crisis helpline or text a crisis text line. This information is not intended to replace advice given to you by your health care provider. Make sure you discuss any questions you have with your health care provider. Document Revised: 09/28/2021 Document Reviewed: 01/14/2020 [employer] Patient Education 2022 [employer]. Follow Up Care 02/02/2023 20:52:02 With:[facility] Address:Unknown When:02/06/2023 Comments:Please follow-up with your primary care doctor in the [facility] for further evaluation and management. Please return to the ED for any new or worsening symptoms. With:Jewell Monzon Address: [address] [place] [phone] Business (1) When:Within 3 Day(s) [facility]07-31-2023 Hospital Discharge instructions Patient Education 10/16/2022 14:36:47 Chronic Migraine Headache Chronic Migraine Headache A migraine is a type of headache that is usually stronger and more sudden than other headaches. Migraines are characterized by an intense pulsing, throbbing pain that is usually only present on one side of the head. Migraine pain usually gets worse with activity. Migraines can cause nausea, vomiting, sensitivity to light and sound, and vision changes. Migrainesthat keep coming back are called recurrent migraines. A migraine is called a chronic migraine if ithappens at least 15 days in a month for more than 3 months. Talk with your health care provider about what things may bring on (trigger) your migraines. What are the causes? The exact cause of this condition is not known. However, a migraine may be caused when nerves in the brain become irritated and release chemicals that cause inflammation of blood vessels. The inflammation of the blood vessels causes pain. Migraines may be triggered or caused by: Smoking. Certain foods and drinks, such as: ?Aged cheese. ?Chocolate. ?Alcohol. ?Caffeine. ?Foods or drinks that contain nitrates, glutamate, aspartame, MSG, or tyramine. Medicines, such as control pills or some blood pressure medicines. Other things that may trigger a migraine include: Menstruation. Emotional stress. Lack of sleep or too much sleep. Tiredness (fatigue). Bright lights or loud noises. Odors. Weather changes and high altitude. What increases the risk? The following factors may make you more likely to experience chronic migraine: Having migraines or a family history of migraines. Having a mental health condition, such as depression or anxiety. Having to take a lot of pain medicine. Having sleep problems. Having heart disease, diabetes, or obesity. What are the signs or symptoms? Symptoms of a migraine vary for each person and may include: Pulsating or throbbing pain. Pain that is usually only present on one side of the head. In some cases, the pain may be on both sides of the head or around the head or neck. Severe pain that prevents you from doing daily activities. Pain that gets worse with physical activity. Nausea, vomiting, or both. Pain with exposure to bright lights, loud noises, or activity. General sensitivity to bright lights, loud noises, or smells. Dizziness. A sign that a migraine is becoming chronic is an increasing number of migraine episodes. It is considered chronic if the migraine happens at least 15 days in a month for more than 3 months. How is this diagnosed? This condition is often diagnosed based on: Your symptoms and medical history. A physical exam. You may also have tests, including: A CT scan or an MRI of your brain. These imaging tests cannot diagnose migraines, but they can helpto rule out other causes of headaches. Taking fluid from the spine (lumbar puncture) and analyzing it (cerebrospinal fluid analysis, or CSF analysis). Blood tests. How is this treated? This condition is treated with: Medicines. These help to: ?Lessen pain and nausea. ?Prevent migraines. Lifestyle changes, such as changes to your diet or sleeping patterns. Behavior therapy. This may include: ?Relaxation training. ?Biofeedback. This is a treatment that teaches you to relax and use your brain to lower your heart rate and control your breathing. ?Cognitive behavioral therapy (CBT). This is a form of talk therapy. This therapy helps you set goals and follow up on the changes that you make. Acupuncture. Using a device that provides electrical stimulation to your nerves, which can relieve pain (neuromodulation therapy). Surgery, if the other treatments are not working. Follow these instructions at home: Medicines Take fvfg-ksb-pdmtwhs and prescription medicines only as told by your health care provider. Ask your health care provider if the medicine prescribed to you requires you to avoid driving or using machinery. Lifestyle Do not use any products that contain nicotine or tobacco, such as cigarettes, e- cigarettes, and chewing tobacco. If you need help quitting, ask your health care provider. Do not drink alcohol. Get 7 9 hours of sleep each night, or the amount of sleep recommended by your health care provider. Find ways to manage stress, such as meditation, deep breathing, or yoga. Maintain a healthy weight. If you need help losing weight, ask your health care provider. Exercise regularly. Aim for 150 minutes of moderate-intensity exercise, such as walking, biking, oryoga, or 75 minutes of vigorous exercise each week. Vigorous exercise includes running, circuit training, and swimming. General instructions Keep a journal to find out what triggers your migraines so you can avoid these triggers. For example, write down: ?What you eat and drink. ?How much sleep you get. ?Any change to your diet or medicines. Lie down in a dark, quiet room when you have a migraine. Try placing a cool towel over your head when you have a migraine. Keep lights dim, if bright lights bother you or make your migraines worse. Keep all follow-up visits as told by your health care provider. This is important. Where to find more information Coalition for Headache and Migraine Patients (CHAMP): headachemigraine.org [place] Migraine Foundation: americanmigrainefoundation.org National Headache Foundation: headaches.org Contact a health care provider if: Your pain does not improve, even with medicine. Your migraines continue to return, even with medicine. Get help right away if: Your migraine becomes severe and medicine does not help. You have a stiff neck and fever. You have a loss of vision. You have muscle weakness or loss of muscle control. You start losing your balance, or you have trouble walking. You feel like you may faint, or you faint. You start having sudden and unexpected, severe headaches. You have a seizure. Summary Migraine headaches are usually stronger and more sudden than other headaches. Migraines are characterized by an intense pulsing, throbbing pain that is usually only present on one side of the head. Migraines that keep coming back are called recurrent migraines. A migraine is called a chronic migraine if it happens 15 days in a month for more than 3 months. Certain things may trigger migraines, such as lack of sleep or too much sleep, smoking, certain foods, alcohol, stress, and certain medicines. Your treatment plan may include medicines, lifestyle changes, and behavior therapy. This information is not intended to replace advice given to you by your health care provider. Make sure you discuss any questions you have with your health care provider. Document Revised: 04/21/2020 Document Reviewed: 04/21/2020 [employer] Patient Education 2022 [employer]. Follow Up Care 10/13/2022 13:34:53 With:Nicolás MINA, [employer], Jewell Alcala Address: [address] [place] [phone] When:Within 6 Month(s) Comments:chronic care-migraines [facility] Kishore 12-27-2022 History of Present illness Narrative* Alcon Mckeon DMD - 03/14/2022 12:06 PM EST ORAL SURGERY CLINIC TELEPHONE FOLLOW UP VISIT Called patient. No answer. Left voicemail for call back at the [facility]. Will attempt again at another time. Alcon Mckeon DMD [facility] Resident documented in this [id number] NoteSurgical Attestation: I have reviewed the patient's History and Physical Examination. I have personally seen and evaluated the patient, repeating neil portions. There is no significant interval change. Surgery is still indicated. Yes Consent reviewed and signed by patient/family: Yes Operative site verified and marked: N/A [facility] [id number] Hospital Discharge instructions* Discharge Instructions* Mindy Geller RN - 03/02/2022 1:45 PM EST [employer] DISCHARGE INSTRUCTIONS 1. DIET: - Soft food diet 2. PAIN MEDICATIONS: - Ibuprofen 600 mg every 6 hours as needed for pain - Megargel 5/325 mg every 6 hours as needed for severe pain 3. WOUND CARE: - Peridex mouth rinses after breakfast and dinner for 2 weeks - Salt water rinses as needed 4. ACTIVITY: - No strenuous activity or heavy lifting greater than 10 pounds for 2 weeks. - No breast feeding while taking Megargel 5. FOLLOW UP APPOINTMENT: - Follow up via telephone in 1 week 6. NO SMOKING. THIS WILL SIGNIFICANTLY IMPAIR YOUR HEALING PROCESS. 7. QUESTIONS/CONCERNS?: Call drug worker Office Dental extraction Instructions Biting on Gauze to Control Bleeding Bleeding may occur for some time after you extraction. In most cases this bleeding can be easily controlled by placing a piece of clean gauze DIRECTLY over the empty tooth socket. Then make sure thatyou bite firmly on this gauze for 30 to 60 minutes. Use the gauze we supplied to you in the bag. Wash your hands with soap and water before touching the gauze and placing it in your mouth. Place the used gauze from your mouth in a plastic bag and dispose the bag in a trash container. Make sure to wash your hands again when you are done touching the used gauze and before touching anything else. If a small amount of bleeding continues after 45 minutes then repeat these instructions. Sometimes biting a tea bag may be helpful in controlling minor bleeding. Very light bleeding for 2 days is not uncommon. If heavy bleeding is still persistent during normal clinic hours than call the Clinic where the extraction was done to speak with an oral surgeon. [facility] [phone]. HELPING THE HEALING PROCESS AND STOPPING THE BLEEDING FOR THE NEXT 24 HOURS (1 DAY) AFTER THE EXTRACTION: DO NOT RINSE YOUR MOUTH OR SPIT 2. DO NOT DRINK ANY HOT LIQUIDS SUCH SOUP, COFFEE, TEA, HOT CHOCOLATE AVOID HEAVY LIFTING, BENDING OR OTHER STENUOUS EXERCISES SLEEP WITH 2 PILLOWS OR IN A RECLINER CHAIR. KEEPING HEAD ELEVATED WILL REDUCE SWELLING. SUTURE WILL DISSOLVE IN 7-10 DAYS FOR THE NEXT 72 HOURS (3 DAYS) AFTER THE EXTRACTION: DO NOT SMOKE OR DRINK ALCOHOL DO NOT DRINK OR SUCK FROM A STRAW OR ANYTHING ELSEDO NOT DRINK. Stitches may have been placed to help healing. Your surgeon will advise you if you need to return to have them removed. TOOTH BRUSHING On the day of the extraction it is best to avoid brushing the teeth right next to the extraction site. On the next day you can start brushing ALL your teeth but in a gentle fashion. Remember to not rinse strongly because it may cause you to start bleeding from the extraction site again. SWELLING AND PAIN After the extraction you may feel some pain and experience some swelling. An ice pack of unopened bag of frozen peas of corn applied to the area should keep the swelling down. Put the ice pack on youface for 10 minutes and then leave it off for the next 20 minutes. You can repeat this patter as you feel is necessary for up to 24 hours after the extraction. To avoid injury, make sure that adults or children avoid biting or chewing on their lips of cheeks, which may be numb following an extraction. If your pain or swelling seems to be getting worse or you feel as though something is not right then call your dentist, as directed above. ANTIBIOTICS AND PAIN MEDICATION If antibiotics have been prescribed then you should take them as directed; this includes taking allthe antibiotic (or liquid) pills that were prescribed. If you don't finish them completely a serious infection could result. You may have little of no discomfort after the extraction. If you have minor pain then you may wantto take acetaminophen (Tylenol) or ibuprofen (Motrin). It is very important that before taking any medications that you read and follow the directions and warnings that come with these products so you know whether they are right for you and you situation. If you have any questions on whether these medications are right for you, first talk to your doctor or pharmacist before taking the medication. Your surgeon may have given you a written prescription for pain relief. It is important that if youdecide to take it you read and understand all the precautions, warnings and directions that come with the medication. If you have any questions on whether the medication is right for you, first talk to your doctor or pharmacist before taking the medication. The pain medication prescription that your dentist gave you may contain a narcotic (like codeine). If so, most narcotic pain medications may upset your stomach. If so, then it is best to take them with food. The pain medication prescription that you were given can also make you drowsy or make you act strangely. If so, you should limit or stop activities such as driving a motor vehicle, operate machinery or other activities that require your full attention. EATING AND DRINKING A soft or liquid diet may be best for you after a difficult extraction. For a simpler extraction just make sure you do your chewing with those teeth that are NOT near the extraction site. POSTOPERATIVE INSTRUCTION AFTER SEDATION / GENERAL ANESTHESIA If you had general anesthesia of IV sedation, do not drive or operate machinery for 24 hours. A responsible adult should be with you for the remainder of the day. When starting oral intake, be sure to consume CLEAR LIQUIDS first. Clear liquids consist of water, Sprite, bee shayna, Jell-O, and non-pulp containing juices such as cranberry and apple juice. Once tolerating clear-liquids, you may advance your diet. Be sure to follow the specific diet instructions from your doctor according to the type of surgery you have had. It is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 airway. Breathing in things that bother (irritate) your lungs. Allergies. Asthma. Mucus that runs down the back of your throat (postnasal drip). Smoking. Acid backing up from the stomach into the tube that moves food from the mouth to the stomach (gastroesophageal reflux). Some medicines. Lung problems. Other medical conditions, such as heart failure or a blood clot in the lung (pulmonary embolism). Follow these instructions at home: Medicines Take kyht-pbn-pisoari and prescription medicines only as told by your doctor. Talk with your doctor before you take medicines that stop a cough (coughsuppressants). Lifestyle Do not smoke, and try not to be around smoke. Do not use any products that contain nicotine or tobacco, such as cigarettes, e-cigarettes, and chewing tobacco. If you need help quitting, ask your doctor. Drink enough fluid to keep your pee (urine) pale yellow. Avoid caffeine. Do not drink alcohol if your doctor tells you not to drink. General instructions Watch for any changes in your cough. Tell your doctor about them. Always cover your mouth when you cough. Stay away from things that make you cough, such as perfume, candles, campfire smoke, or cleaning products. If the air is dry, use a cool mist vaporizer or humidifier in your home. If your cough is worse at night, try using extra pillows to raise your head up higher while you sleep. Rest as needed. Keep all follow-up visits as told by your doctor. This is important. Contact a doctor if: You have new symptoms. You cough up pus. Your cough does not get better after 2 3 weeks, or your cough gets worse. Cough medicine does not help your cough and you are not sleeping well. You have pain that gets worse or pain that is not helped with medicine. You have a fever. You are losing weight and you do not know why. You have night sweats. Get help right away if: You cough up blood. You have trouble breathing. Your heartbeat is very fast. These symptoms may be an emergency. Do not wait to see if the symptoms will go away. Get medical help right away. Call your local emergency services (911 in the [place] Do not drive yourself to the hospital. Summary A cough helps to clear your throat and lungs. Many things can cause a cough. Take jsjg-deq-pfkyrkx and prescription medicines only as told by your doctor. Always cover your mouth when you cough. Contact a doctor if you have new symptoms or you have a cough that does not get better or gets worse. This information is not intended to replace advice given to you by your health care provider. Make sure you discuss any questions you have with your health care provider. Document Released: 11/16/2011 Document Revised: 03/24/2019 Document Reviewed: 03/24/2019 [employer] Patient Education 2020 [employer] Follow Up Care 08/27/2021 08:25:49 With:Kimberly Griffith Address: [address] , [address] [address] [facility] (1) When:08/30/2021 10:39:31 only if needed [facility] No data available for this section [facility] Future Appointments Appointment Date:04/04/2023 10:20:00 AM Scheduled Provider:Nicolás MINA, Jewell CHRISTOPHER Location:[facility] Kishore Appointment Type:[facility] Kishore Evaluation note* Diagnosis Caries- Primary Unspecified dental caries [facility] Diagnosis 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- Primary Dental caries extending into pulp Body mass index (BMI) 33.0-33.9, adult [facility]* Diagnosis 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- Primary Dental caries extending into pulp Preop examination- Primary Preoperative examination, unspecified 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 Dental caries extending into pulp [facility]* Diagnosis 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- Primary Dental caries extending into pulp [facility]* Diagnosis Post-operative state- Primary Other postprocedural status [facility] No data available for this section [facility] No data available for this section [facility] History of Present Illness * Raymond Moyer LSW - 12/20/2018 1:45 PM EDT [facility] clinician received email from Rosa brownlee director case management stating client would have to rescheduleappt due to director case management's car needing repair (director case management was transporting client to appt) and client not finding childcare. process development manager asked if appt could be rescheduled for next Sunday at 3pm. Clinician called and lft VMM for director case management stating that next Sunday at 3pm would be fine. Clinician stated if she needed to bring her child that would be fine and also offered to schedule a cab. process development manager responded and agreed that scheduling a cab would be helpful. Clinician stated that she would. 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 Surgery [address] [address] Referral ID Status Reason Start Date Expiration Date V isits Requested Visits Authorized [id number] Pending Review 01/17/2022 01/17/2023 1 1 Scheduling Instructions If your in-clinic procedure was not scheduled for you today, please call (option 2) during normal business hours (8 am to 5 pm) on to schedule. Please allow 4 weeks time between the day of your consult to scheduling your procedure to allow the system time to process the order and receive insurance authorization. If your insurance denies all or part of your procedure, you will be contacted with [email or web address] costs or next steps. All self-pay payments will need to be collected in full prior to having the procedure. Please arrive 30 minutes prior to your procedure. If you are having a local anesthesia procedure: No diet restrictions the day before or day of the procedure. You may take your normal medications as instructed. No covid testing needed. You may drive yourself home afterward. If you are prescribed anxiety reducing medications for the procedure: You also MUST have a cdl company driver/escort >18yrs old present to take you home after. If your provider has proposed an IV sedation procedure: Please refer to the instructions given to you at your consult appointment. You will receive a call from a nurse roughly 1 week prior to your procedure to go over any/all instructions. Question Answer What is the procedure for? Dental Please specify: Extractions Please specify: Routine Extraction Please list tooth number(s): Routine extraction - #2, 15, 18, 19, 20, 30 Comments Under general anesthesia at [facility] Specialty Diagnoses / Procedures Referred By Arthur torres Referred To Contact Oral Surgery Diagnoses Caries Jayme Marquez DDS [address] [place] [address] [facility] [address] [place] [address] Referral ID Status Reason Start Date Expiration Date V isits Requested Visits Authorized [id number] Authorized 09/29/2021 09/29/2022 3 3 Scheduling Instructions Please call the drug worker Clinic at [facility] at to schedule an appointment if one was not made for you today. Comments Please evaluate teeth #2, #15, #18, #19, #20, #30 for extractions. Patient is interested in sedation/general anesthesia. Thank you! Rylie Thomas DDS Summary Purpose Family History No Family History Records FoundNo Family History Records Found No data available for this section No data available for this section No Family History Records Found No data available for this section No data available for this section No Family History Records Found Additional Source Comments Care Team (unrecognized sect ion and content) Personnel Name: Kimberly Griffith DO Address: [address] [place] [address]- [place] Name: Linda Trujillo Name: Ramona RÍOS Address: [address] [place] [address]- [place] Personnel Name: Estiven MCCLURE DO, FAAFP Address: Address: [address] [place] [address]- [place] Name: Linda Trujillo Name: Ramona RÍOS Address: Address: [address] [place] [address]- [place] Personnel Name: Estiven MCCLURE DO, FAAFP Address: Address: [address] [place] [address]- [place] Name: Linda Trujillo Name: Ramona RÍOS Address: Address: [address] [address]- [place] Personnel Name: MARCIA JUAREZ CNP Address: Address: [address] [place], [place] [id number] [place] Name: Linda Trujillo Name: Ramona RÍOS Address: Address: [address] [place] [address]- Personnel Name: MARCIA JUAREZ CNP Address: Address: [address] [place], [place] [id number] [place] Name: Linda Trujillo Name: Ramona RÍOS Address: Address: [address] [place] [address]- Personnel Name: ASHWIN Hernandez Tammy L. Address: Address: [address] [place] [address]- Name: Linda Trujillo Name: Ramona RÍOS Address: Address: [address] [place] [address]- Personnel Name: ASHWIN Hernanedz Tammy L. Address: Address: [address] [place] [address] Name: Linda Trujillo Name: Ramona RÍOS Address: Address: [address] [place] [address] Nicole, [facility] [address] Personnel Name: Nicolás MINA, GAME W[employer]EN[employer]FARMWORK[employer], Jewell Riley. Address: Address: [address] [place] [address] Name: Linda Trujillo Name: Ramona RÍOS Address: Address: [address] [place] [address], [facility] D [address] Personnel Name: Nicolás MINA, GAME WARDEN-FARMWORK[employer], Jewell Riley. Address: Address: [address] [place] [address] Name: Linda Trujillo Name: Ramona RÍOS Address: Address: [address] [place] [address] Personnel Name: Nicolás MINA, GAME WARDEN-FARMWORK[employer], Jewell Riley. Address: Address: [address] [place] [address] Name: Linda Trujillo Name: Ramona RÍOS Address: Address: [address] [place] [address] Reason for Visit (unrecogniz ed section and content) Reason Comments New patient, to establish relationship Specialty Diagnoses / Procedures Referred By Arthur torres Referred To Contact Oral Surgery Diagnoses Caries Jayme Marquez, DDS [address] [place] [address] [facility] [address] [place] [address] Referral ID Status Reason Start Date Expiration Date V isits Requested Visits Authorized [id number] Authorized 09/29/2021 09/29/2022 3 3 Reason Onset Date Comments Pre-surgical Evaluation 02/15/2022 Not avai lable Reason Onset Date Comments Pre-surgical Evaluation 02/23/2022 Pre-op C OVID testing not needed Specialty Diagnoses / Procedures Referred By Arthur torres Referred To Contact Ambulatory Surgery Diagnoses 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 [K02.9] Procedures ANESTHESIA, INTRAORAL PROC, W/BX; NOS UNLISTED PROCEDURE, DENTOALVEOLAR STRUCTURES EXTRACTION, TOOTH - #2, 15, 18, 19, 20, 30 Candy Mora DDS [address] [place] [address] [employer] [address] [place] [address] Phone: [phone] Referral ID Status Reason Start Date Expiration Date Visits Re quested Visits Authorized [id number] 3 3 Reason Comments Post Op Check Scheduled Active and Recently Administ ered Medications (unrecognized section and content) Medication Order 02/28/2022 03/01/2022 03/02/2022 ceFAZolin (ANCEF) 2,000 mg in dextrose 50 mL ivpb (COMPLETED) 2,000 mg, Intravenous, ONCE, 1 dose, On Nadia 03/02/22 at 1200, at 100 mL/hr 1334 (Given - Provid er: Micky Vaughan) chlorhexidine (PERIDEX) 0.12 % oral solution (COMPLETED) 15 mL, Swish & Spit, ONCE, 1 dose, On Nadia 03/02/22 at 1200, Pre-op 1212 (Given - Provid er: Jonah Richard RN) Continuous Medication Order 02/28/2022 03/01/2022 03/02/2022 lactated ringers iv infusion Intravenous, at 75 mL/hr, CONTINUOUS, Starting on Nadia 03/02/22 at 1200, Until Discontinued 1200 (Due) PRN Medication Order 02/28/2022 03/01/2022 03/02/2022 albuterol (PROVENTIL) (2.5 MG/3ML) 0.083% nebulizer solution 2.5 mg, Nebulization, PACU ONCE PRN, Starting on Nadia 03/02/22 at 1154, Until Nadia 03/02/22 at 1753, Wheezing, PACU Now bupivacaine (MARCAINE) 10 mL, lidocaine-epinephrine (XYLOCAINE) 1 %-1:088990 10 mL, dose administered = 18 mL given 20 mL sc injection (CANCELED) PRN, Starting on Nadia 03/02/22 at 1341, Until Nadia 03/02/22 at 1356 1341 (Given - Provid er: Candy Mora DDS) HYDROmorphone (DILAUDID) 1 mg/mL injection 0.2 mg, Intravenous Push, PACU EVERY 15 MIN PRN X 4 DOSES, 4 doses, Starting on Nadia 03/02/22 at 1154, Until Nadia 03/02/22 at 2359, Moderate Pain (pain score 4,5,6), PACU Now naloxone (NARCAN) 0.4 MG/ML injection 0.4 mg, Intravenous Push, PRN, Starting on Nadia 03/02/22 at 1154, Until Discontinued, Respiratory Rate Less Than 8 for adults and less than 12 for Peds or for suspected overdose, PACU Now ondansetron (ZOFRAN) 4 MG/2ML injection 4 mg, Intravenous Push, PACU ONCE PRN, Starting on Nadia 03/02/22 at 1154, Until Nadia 03/02/22 at 1753, Nausea, Vomiting, PACU Now oxyCODONE-acetaminophen (PERCOCET) 5-325 mg per tablet 1 Tablet, Oral, PACU ONCE PRN, Starting on Nadia 03/02/22 at 1154, Until Nadia 03/02/22 at 1753, Mild Pain (pain score 1,2,3), PACU Now oxyCODONE-acetaminophen (PERCOCET) 5-325 mg per tablet 2 Tablet, Oral, PRN, 1 dose, Starting on Nadia 03/02/22 at 1154, Until Discontinued, Moderate Pain (pain score 4,5,6), PACU Now sodium chloride 0.9 % (PF) 0.9 % injection 3 mL, Intravenous Push, PRN, Starting on Nadia 03/02/22 at 1154, Until Discontinued, For medication administration and blood draw, PACU Now INFORMATION SOURCE (unrecogn ized section and content) DATE CREATED AUTHOR 03/09/2022 [facility] DATE CREATED AUTHOR AUTHOR'S ORGANIZ ATION 03/15/2022 [facility] [employer] [facility] DATE CREATED AUTHOR AUTHOR'S ORGANIZ ATION 04/13/2023 [facility] DATE CREATED AUTHOR AUTHOR'S ORGANIZ ATION 05/03/2023 [facility] FOR RECORDS PERTAINING TO PATIENTS WHO ARE OR HAVE BEEN ENROLLED IN A CHEMICAL DEPENDENCY/SUBSTANCEABUSE PROGRAM, SOME INFORMATION MAY BE OMITTED. This clinical summary was aggregated from multiple sources. Caution should be exercised in using it in the provision of clinical care. This summary normalizes information from multiple sources, and as a consequence, information in this document may materially change the coding, format and clinical context of patient data. In addition, data may be omitted in some cases. CLINICAL DECISIONS SHOULD BE BASED ON THE PRIMARY CLINICAL RECORDS. [facility]. provides no warranty or guarantee of the accuracy or completeness of information in this document.
--- NOTE | 2023-05-05 17:21 | ECG_ITS ---
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
--- NOTE | 2023-05-05 17:21 | XR_ITS ---
The [address] [address] Patient Name: FABRIZIO MOHR MRN: [id number] date: 2000 Sex: F Assigned Patient Location: ER Current Patient Location: ER Accession/Order Number: [id number] Exam Date: 05/05/2023 17:45 Report Date: 05/05/2023 18:12 At the request of: RAFFY MAXWELL Procedure: XR chest 1V EXAM: XR chest 1V HISTORY: Cough; technologist notes state cough, chest pain and fever for one week. COMPARISON: Left rib series dated 08/22/2020. TECHNIQUE: AP erect portable chest radiograph performed. FINDINGS: The trachea is midline. The cardiomediastinal silhouette and hilar shadows are within normal limits. Stable calcified granuloma within the left chest. There is no consolidation, infiltrate, pleural effusion or vascular congestion. There is no pneumothorax or osseous abnormality. XR/XR chest 1V IMPRESSION: There is no acute cardiopulmonary process. Electronically authenticated by: EMANUEL HARMON Date: 05/05/2023 18:12
--- NOTE | 2023-05-05 17:29 | ED_ITS ---
HPI - General Adult General Chief complaint: Upper Respiratory Infection Stated complaint: Chest Pain x1 week Time Seen by Provider: 05/05/23 17:15 Source: patient Mode of arrival: walk-in History of Present Illness HPI narrative: Patient is a 22-year-old female who presents to the emergency department for continued pain in the chest. She was seen at [facility] 6 days ago in the emergency department and diagnosed with an upper respiratory infection. She states her children were sick with influenza A. She presents to this ER today because all of her symptoms have improved but she continues to have pain in her chest and states she feels very fatigued. She has had subjective fever, she has not taken her temperature. She has had no hemoptysis, sputum production, vomiting, diarrhea. She has not taken Motrin or Tylenol in approximately 6 hours. She arrives to the emergency department with normal vital signs. Related Data Home Medications Medication Instructions Recorded Confirmed methylprednisolone 4 mg tablets in 4 mg PO DAILY 05/05/23 05/05/23 a dose pack Previous Rx's Medication Instructions Recorded ceowfmarntxkokv-ncwpnthndzyxfrq-ZG 5 ml PO Q6H PRN cold symptoms #118 01/10/23 2 mg-30 mg-10 mg/5 mL oral syrup mL (Bromfed DM) ketorolac 10 mg tablet 10 mg PO TID PRN pain #10 tabs 05/05/23 methocarbamol 750 mg tablet 750 mg PO TID PRN pain #20 tabs 05/05/23 ondansetron 4 mg disintegrating 4 mg PO Q6H PRN nausea and 05/05/23 tablet vomiting #12 tabs Allergies Allergy/AdvReac Type Severity Reaction Status Date / Time No Known Drug Allergies Allergy Verified 01/10/23 11:00 Review of Systems ROS Constitutional Reports: fever; Denies: chills Ears, nose, mouth, and throat Reports: throat pain and nasal congestion Cardiovascular Reports: chest pain Respiratory Reports: cough; Denies: shortness of breath Gastrointestinal Reports: nausea; Denies: vomiting or diarrhea Musculoskeletal Denies: back pain or neck pain Integumentary/Breast Denies: rash Neurological Reports: headache PFSH PFSH Social History Smoking status: Heavy tobacco smoker Exam Narrative Exam Narrative: Gen.: Awake, alert, in no distress Head: Normocephalic, atraumatic ENT: Moist mucous membranes; Bilateral TMs clear, no pharyngeal erythema Respiratory: No respiratory distress, lungs clear bilaterally; No coughing noted Cardio: Regular rate and rhythm Extremities: Moves extremities equally Psych: Normal mood and affect Neuro: No focal neuro deficit Skin: Warm, dry, intact Constitutional Vital Signs, click to edit/add: Last Vital Signs Temp 98.2 F 05/05/23 17:17 Pulse 85 05/05/23 17:41 Resp 17 05/05/23 17:41 BP 115/76 05/05/23 17:41 Pulse Ox 99 05/05/23 17:41 O2 Del Method Room Air 05/05/23 17:26 Course Vital Signs Vital signs: Vital Signs Temperature 98.2 F 05/05/23 17:17 Pulse Rate 87 05/05/23 17:17 Respiratory Rate 16 05/05/23 17:17 Blood Pressure 117/91 05/05/23 17:17 Pulse Oximetry 100 05/05/23 17:17 Oxygen Delivery Method Room Air 05/05/23 17:17 Temperature 98.2 F 05/05/23 17:17 Pulse Rate 85 05/05/23 17:41 Respiratory Rate 17 05/05/23 17:41 Blood Pressure 115/76 05/05/23 17:41 Pulse Oximetry 99 05/05/23 17:41 Oxygen Delivery Method Room Air 05/05/23 17:26 Medical Decision Making MDM Narrative Medical decision making narrative: Patient With stable vital signs, no tachycardia or hypoxia. She has an unremarkable EKG showing normal sinus rhythm and a chest x-ray with no evidence of acute cardiopulmonary changes. Exam is consistent with upper respiratory/flulike illness with development of chest wall pain versus pleurisy. She will be placed on NSAIDs and muscle relaxants. Follow-up with PCP and return to the ER if symptoms change or worsen. Medical Records Medical records reviewed: Yes I reviewed the patient's medical records Imaging Data Chest x-ray: Attestation: I have reviewed the pertinent imaging results. Radiologist's impression: ITS Impressions Chest X-Ray 05/05/23 17:21 IMPRESSION: There is no acute cardiopulmonary process. Electronically authenticated by: EMANUEL HARMON Date: 05/05/2023 18:12 ECG Data Attestation: I personally reviewed and interpreted this ECG as follows: (Normal sinus rhythm at a rate of 73, no acute ST elevation or ectopy. EKG reviewed by attending physician) Discharge Plan Discharge Chief Complaint: Upper Respiratory Infection Clinical Impression: Acute chest wall pain, Upper respiratory infection Patient Disposition: Home, Self-Care Time of Disposition Decision: 18:18 Condition: Good Prescriptions / Home Meds: New ketorolac 10 mg tablet 10 mg PO TID PRN (Reason: pain) Qty: 10 0RF methocarbamol 750 mg tablet 750 mg PO TID PRN (Reason: pain) Qty: 20 0RF ondansetron 4 mg tablet,disintegrating 4 mg PO Q6H PRN (Reason: nausea and vomiting) Qty: 12 0RF No Action bihtrobjwnwxzdr-oszbqqsgv-HW [Bromfed DM] 2-30-10 mg/5 mL syrup 5 ml PO Q6H PRN (Reason: cold symptoms) Qty: 118 0RF methylprednisolone 4 mg tablets,dose pack 4 mg PO DAILY Patient Comments: take as directed Instructions: Upper Respiratory Infection (ED), Chest Wall Pain (ED) Stand Alone Forms: Portal Instructions Referrals: Jewell Monzon, JESSICA [Primary Care Provider] - 1 week
[2023-05-05] MEDS: DEXAMETHASONE SOD PHOS 10 MG/ML VIAL PO (17:40)
[2023-05-05] MEDS: KETOROLAC TROMETHAMINE 10 MG TABLET PO (17:40)
== END 2023-05-05 18:24 | disposition home or self-care (01) ==
PROVIDERS: Emergency Provider Emergency Medicine
DX: R07.89 Other chest pain (principal); J06.9 Acute upper respiratory infection, unspecified; F17.200 Nicotine dependence, unspecified, uncomplicated
CPT/HCPCS: 71045; 87804; 87811; 87880; 93005; 99284; J1100

== ENCOUNTER 2023-10-08 12:47 | Emergency (ER) | payer OTHER, SELFPAY ==
[2023-10-08 13:00] VITALS: BP 134/88; PULSE 65; TEMP 36.9; O2SAT 99; BMI 30.6
--- NOTE | 2023-10-08 13:22 | CT_ITS ---
The [address] [address] Patient Name: FABRIZIO MOHR MRN: [id number] date: 2000 Sex: F Assigned Patient Location: ER Current Patient Location: ER Accession/Order Number: [id number] Exam Date: 10/08/2023 14:01 Report Date: 10/08/2023 14:39 At the request of: RAFFY MAXWELL Procedure: CT cervical spine wo con PROCEDURE: CT thoracic spine wo con, CT cervical spine wo con COMPARISON: None. HISTORY: thoracic pain TECHNIQUE: Axial, Coronal, and Sagittal CT images obtained without IV contrast. Dose reduction techniques were achieved by using automated exposure control and/or adjustment of mA and/or kV according to patient size and/or use of iterative reconstruction technique. FINDINGS: PARASPINAL AREA: Normal with no visible mass. DISCS: Normal BONES: Normal alignment of the cervical and thoracic vertebral bodies with no acute fracture or spondylolisthesis. No degenerative changes OTHER: Negative. CT/CT cervical spine wo con IMPRESSION: No abnormality of the cervical or thoracic spine Electronically authenticated by: DEVIN ANAND Date: 10/08/2023 14:39
--- NOTE | 2023-10-08 13:22 | CT_ITS ---
The [address] [address] Patient Name: FABRIZIO MOHR MRN: [id number] date: 2000 Sex: F Assigned Patient Location: ER Current Patient Location: ER Accession/Order Number: [id number] Exam Date: 10/08/2023 14:01 Report Date: 10/08/2023 14:39 At the request of: RAFFY MAXWELL Procedure: CT thoracic spine wo con PROCEDURE: CT thoracic spine wo con, CT cervical spine wo con COMPARISON: None. HISTORY: thoracic pain TECHNIQUE: Axial, Coronal, and Sagittal CT images obtained without IV contrast. Dose reduction techniques were achieved by using automated exposure control and/or adjustment of mA and/or kV according to patient size and/or use of iterative reconstruction technique. FINDINGS: PARASPINAL AREA: Normal with no visible mass. DISCS: Normal BONES: Normal alignment of the cervical and thoracic vertebral bodies with no acute fracture or spondylolisthesis. No degenerative changes OTHER: Negative. CT/CT thoracic spine wo con IMPRESSION: No abnormality of the cervical or thoracic spine Electronically authenticated by: DEVIN ANAND Date: 10/08/2023 14:39
--- NOTE | 2023-10-08 13:23 | ED_ITS ---
Documented by User: NELSON Tenorio 10/08/23 14:49 HPI HPI - General Adult General Chief complaint: Back Pain/Injury Stated complaint: BACK PAIN Time Seen by Provider: 10/08/23 13:09 Source: patient Mode of arrival: Wheelchair Limitations: physical limitation History of Present Illness HPI narrative: Patient is a 23-year-old female who presents to the emergency department for sudden onset of superior thoracic pain radiating into the cervical spine. She was seen 3 days ago at an outside hospital emergency department for pain in the low back. She states she was diagnosed with spondylolisthesis and prescribed naproxen. She states her low back no longer hurts but while she was at a local grocery store, she felt a sudden onset of pain in the thoracic back radiating to the neck. She denies any pain radiation to the extremities or peripheral paresthesias. She has no visual changes although she states the pain did make her feel lightheaded. She drove herself to this emergency department. No concern for . She is ambulatory. Related Data Home Medications ?Medication ?Instructions ?Recorded ?Confirmed methylprednisolone 4 mg tablets in 4 mg PO DAILY 05/05/23 05/05/23 a dose pack Previous Rx's ?Medication ?Instructions ?Recorded mzhncalupvfofqe-eqojsqrrqucufzc-EI 5 ml PO Q6H PRN cold symptoms #118 01/10/23 2 mg-30 mg-10 mg/5 mL oral syrup mL (Bromfed DM) ketorolac 10 mg tablet 10 mg PO TID PRN pain #10 tabs 05/05/23 methocarbamol 750 mg tablet 750 mg PO TID PRN pain #20 tabs 05/05/23 ondansetron 4 mg disintegrating 4 mg PO Q6H PRN nausea and 05/05/23 tablet vomiting #12 tabs methocarbamol 750 mg tablet 750 mg PO TID PRN pain #20 tabs 10/08/23 Allergies Allergy/AdvReac Type Severity Reaction Status Date / Time aripiprazole [From [facility]ilify] AdvReac Severe Hallucinati Verified 10/08/23 12:59 ng meloxicam AdvReac Mild lethargic Verified 10/08/23 12:59 Opioid HPI Opioid Management Most Recent Opioid Data: Last Pain Scale 2 10/08/23 13:50 Last MAR Pain Assessment 10/08/23 13:50 Review of Systems ROS Constitutional Denies: fever or chills Ears, nose, mouth, and throat Reports: neck pain; Denies: throat pain or nasal congestion Respiratory Denies: shortness of breath Gastrointestinal Denies: nausea or vomiting Musculoskeletal Reports: back pain and neck pain; Denies: extremity pain Integumentary/Breast Denies: rash Neurological Denies: headache, numbness in extremities or weakness in extremities Hematologic/Lymphatic Denies: easy bruising or easy bleeding Allergic/Immunologic Denies: hives [facility] Social History Smoking status: Heavy tobacco smoker Exam Narrative Exam Narrative: Gen.: Awake, alert, in no distress Head: Normocephalic, atraumatic ENT: Moist mucous membranes Respiratory: No respiratory distress Back: Diffuse tenderness of the superior thoracic spine and cervical spine with no bony point tenderness or obvious deformity. Normal movement of the upper extremities. No low lumbar tenderness Extremities: Moves extremities equally, no injuries noted Psych: Normal mood and affect Neuro: No focal neuro deficit Skin: Warm, dry, intact Constitutional Vital Signs, click to edit/add: Last Vital Signs Temp 98.4 F 10/08/23 13:00 Pulse 65 10/08/23 13:00 Resp 18 10/08/23 13:00 BP 134/88 10/08/23 13:00 Pulse Ox 99 10/08/23 13:00 O2 Del Method Room Air 10/08/23 13:00 Course Vital Signs Vital signs: Vital Signs Temperature 98.4 F 10/08/23 13:00 Pulse Rate 65 10/08/23 13:00 Respiratory Rate 18 10/08/23 13:00 Blood Pressure 134/88 10/08/23 13:00 Pulse Oximetry 99 10/08/23 13:00 Oxygen Delivery Method Room Air 10/08/23 13:00 Temperature 98.4 F 10/08/23 13:00 Pulse Rate 65 10/08/23 13:00 Respiratory Rate 18 10/08/23 13:00 Blood Pressure 134/88 10/08/23 13:00 Pulse Oximetry 99 10/08/23 13:00 Oxygen Delivery Method Room Air 10/08/23 13:00 Medical Decision Making MDM Narrative Medical decision making narrative: CTs of the cervical and thoracic spine are unremarkable. Patient medicated for pain in the ED, however at time of medication administration, patient relays to nursing staff that she essentially has no pain. She was given solu-medrol and toradol and will be discharged home with ewa to follow up with her doctor. Neurovascularly intact at discharge. Return to the ED if symptoms change or worsen SUPERVISED APC VISIT, PHYSICIAN ATTESTATION: Based on the medical record the care appears appropriate. ? Medical Records Medical records reviewed: Yes I reviewed the patient's medical records Imaging Data Ct cervical/thoracic: Attestation: I have reviewed the pertinent imaging results. Radiologist's impression: ITS Impressions Cervical Spine CT 10/08/23 13:22 IMPRESSION: No abnormality of the cervical or thoracic spine Electronically authenticated by: DEVIN ANAND Date: 10/08/2023 14:[address] 10/08/23 13:22 IMPRESSION: No abnormality of the cervical or thoracic spine Electronically authenticated by: DEVIN ANAND Date: 10/08/2023 14:39 Discharge Plan Discharge Stand Alone Forms: Portal Instructions Chief Complaint: Back Pain/Injury Clinical Impression: Acute thoracic back pain Patient Disposition: Home, Self-Care Time of Disposition Decision: 14:47 Condition: Good Prescriptions / Home Meds: New methocarbamol 750 mg tablet 750 mg PO TID PRN (Reason: pain) Qty: 20 0RF No Action zngelaoepuuughw-gmyxuwmqs-JZ [Bromfed DM] 2-30-10 mg/5 mL syrup 5 ml PO Q6H PRN (Reason: cold symptoms) Qty: 118 0RF methylprednisolone 4 mg tablets,dose pack 4 mg PO DAILY Patient Comments: take as directed ketorolac 10 mg tablet 10 mg PO TID PRN (Reason: pain) Qty: 10 0RF methocarbamol 750 mg tablet 750 mg PO TID PRN (Reason: pain) Qty: 20 0RF ondansetron 4 mg tablet,disintegrating 4 mg PO Q6H PRN (Reason: nausea and vomiting) Qty: 12 0RF Print Language: Liberian Instructions: Back Pain (ED) Additional Instructions: Apply ice, follow up with your doctor Referrals: Jewell Monzon RN [Primary Care Provider] - 1 week Discharge Date/Time: 10/08/23 15:19 Documented by User: Jamie Grimaldo MD 10/08/23 19:55 HPI HPI - General Adult General Chief complaint: Back Pain/Injury Stated complaint: BACK PAIN Time Seen by Provider: 10/08/23 13:09 Related Data Home Medications ?Medication ?Instructions ?Recorded ?Confirmed methylprednisolone 4 mg tablets in 4 mg PO DAILY 05/05/23 05/05/23 a dose pack Previous Rx's ?Medication ?Instructions ?Recorded wstppnbsjnhwpbb-lvevmeknhbmbfen-NX 5 ml PO Q6H PRN cold symptoms #118 01/10/23 2 mg-30 mg-10 mg/5 mL oral syrup mL (Bromfed DM) ketorolac 10 mg tablet 10 mg PO TID PRN pain #10 tabs 05/05/23 methocarbamol 750 mg tablet 750 mg PO TID PRN pain #20 tabs 05/05/23 ondansetron 4 mg disintegrating 4 mg PO Q6H PRN nausea and 05/05/23 tablet vomiting #12 tabs methocarbamol 750 mg tablet 750 mg PO TID PRN pain #20 tabs 10/08/23 Allergies Allergy/AdvReac Type Severity Reaction Status Date / Time aripiprazole [From [facility]] AdvReac Severe Hallucinati Verified 10/08/23 12:59 ng meloxicam AdvReac Mild lethargic Verified 10/08/23 12:59 Opioid HPI Opioid Management Most Recent Opioid Data: Last Pain Scale 2 10/08/23 13:50 Last MAR Pain Assessment 10/08/23 13:50 PFSH PFSH Social History Smoking status: Heavy tobacco smoker Exam Constitutional Vital Signs, click to edit/add: Last Vital Signs Temp 98.4 F 10/08/23 13:00 Pulse 65 10/08/23 13:00 Resp 18 10/08/23 13:00 BP 134/88 10/08/23 13:00 Pulse Ox 99 10/08/23 13:00 O2 Del Method Room Air 10/08/23 13:00 Course Vital Signs Vital signs: Vital Signs Temperature 98.4 F 10/08/23 13:00 Pulse Rate 65 10/08/23 13:00 Respiratory Rate 18 10/08/23 13:00 Blood Pressure 134/88 10/08/23 13:00 Pulse Oximetry 99 10/08/23 13:00 Oxygen Delivery Method Room Air 10/08/23 13:00 Temperature 98.4 F 10/08/23 13:00 Pulse Rate 65 10/08/23 13:00 Respiratory Rate 18 10/08/23 13:00 Blood Pressure 134/88 10/08/23 13:00 Pulse Oximetry 99 10/08/23 13:00 Oxygen Delivery Method Room Air 10/08/23 13:00 Medical Decision Making MDM Narrative Medical decision making narrative: CTs of the cervical and thoracic spine are unremarkable. Patient medicated for pain in the ED, however at time of medication administration, patient relays to nursing staff that she essentially has no pain. She was given solu-medrol and toradol and will be discharged home with ewa to follow up with her doctor. Neurovascularly intact at discharge. Return to the ED if symptoms change or worsen SUPERVISED APC VISIT, PHYSICIAN ATTESTATION: Based on the medical record the care appears appropriate. I, Dr Grimaldo, have reviewed the above progress note and course of action in the ER; agree with the above. I have gone over history and physical, and discussed disposition and treatment plan with the patient. ? Imaging Data Ct cervical/thoracic: Radiologist's impression: ITS Impressions Cervical Spine CT 10/08/23 13:22 IMPRESSION: No abnormality of the cervical or thoracic spine Electronically authenticated by: DEVIN ANAND Date: 10/08/2023 14:[address] 10/08/23 13:22 IMPRESSION: No abnormality of the cervical or thoracic spine Electronically authenticated by: DEVIN ANAND Date: 10/08/2023 14:39 Discharge Plan Discharge Stand Alone Forms: Portal Instructions Chief Complaint: Back Pain/Injury Clinical Impression: Acute thoracic back pain Patient Disposition: Home, Self-Care Time of Disposition Decision: 14:47 Condition: Good Prescriptions / Home Meds: New methocarbamol 750 mg tablet 750 mg PO TID PRN (Reason: pain) Qty: 20 0RF No Action vzaunoslatgdgml-vffpusiag-DV [Bromfed DM] 2-30-10 mg/5 mL syrup 5 ml PO Q6H PRN (Reason: cold symptoms) Qty: 118 0RF methylprednisolone 4 mg tablets,dose pack 4 mg PO DAILY Patient Comments: take as directed ketorolac 10 mg tablet 10 mg PO TID PRN (Reason: pain) Qty: 10 0RF methocarbamol 750 mg tablet 750 mg PO TID PRN (Reason: pain) Qty: 20 0RF ondansetron 4 mg tablet,disintegrating 4 mg PO Q6H PRN (Reason: nausea and vomiting) Qty: 12 0RF Print Language: Liberian Instructions: Back Pain (ED) Additional Instructions: Apply ice, follow up with your doctor Referrals: Jewell Monzon RN [Primary Care Provider] - 1 week Discharge Date/Time: 10/08/23 15:19
[2023-10-08] MEDS: METHYLPREDNISOLONE SOD SUCC PF 125 MG/2 ML VIAL IM (13:50)
[2023-10-08] MEDS: KETOROLAC TROMETHAMINE 60 MG/2 ML VIAL IM (13:50)
== END 2023-10-08 15:19 | disposition home or self-care (01) ==
PROVIDERS: Emergency Provider Emergency Medicine
DX: M54.6 Pain in thoracic spine (principal); F17.200 Nicotine dependence, unspecified, uncomplicated
CPT/HCPCS: 72125; 72128; 96372; 99285; J1885; J2919

== ENCOUNTER 2024-02-24 20:20 | Emergency (ER) | payer OTHER, SELFPAY ==
[2024-02-24 20:26] VITALS: BP 136/89; PULSE 80; TEMP 36.8; O2SAT 98; BMI 29.1
[2024-02-24 20:32] VITALS: O2SAT 98
--- NOTE | 2024-02-24 20:36 | ECG_ITS ---
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
--- NOTE | 2024-02-24 20:39 | ED_ITS ---
HPI - URI/Sore Throat General Chief Complaint: Upper Respiratory Infection Stated Complaint: SOB Time Seen by Provider: 02/24/24 20:36 Source: patient Limitations: no limitations History of Present Illness HPI Narrative: This 23-year-old female, non-smoker who denies the possibility of because she is not sexually active and is not on control presents for evaluation of exertional dyspnea. The patient states she has been sick for the past 2 weeks. She states her kids are sick with upper respiratory illnesses. She states her symptoms started out with a cough and nasal congestion but for the past several days she has been having chest tightness and exertional dyspnea. She states that even light duties such as vacuuming causes her to become short of breath and she has to sit down and stop. She states it takes her a while to get the energy back to get up and continue doing what ever tasks she is engaged in. She also has not had any appetite for the past several days. She denies any nausea or vomiting. She has not had any diarrhea. She denies any fever at all during this illness. Related Data Home Medications ?Medication ?Instructions ?Recorded ?Confirmed methylprednisolone 4 mg tablets in 4 mg PO DAILY 05/05/23 05/05/23 a dose pack Previous Rx's ?Medication ?Instructions ?Recorded dsbklswydtekbei-nxpcsqpqdzfucqa-XL 5 ml PO Q6H PRN cold symptoms #118 01/10/23 2 mg-30 mg-10 mg/5 mL oral syrup mL (Bromfed DM) ketorolac 10 mg tablet 10 mg PO TID PRN pain #10 tabs 05/05/23 methocarbamol 750 mg tablet 750 mg PO TID PRN pain #20 tabs 05/05/23 ondansetron 4 mg disintegrating 4 mg PO Q6H PRN nausea and 05/05/23 tablet vomiting #12 tabs methocarbamol 750 mg tablet 750 mg PO TID PRN pain #20 tabs 10/08/23 Allergies Allergy/AdvReac Type Severity Reaction Status Date / Time aripiprazole (From Ranjan) AdvReac Severe Hallucinati Verified 02/24/24 20:31 ng meloxicam AdvReac Mild lethargic Verified 02/24/24 20:31 Review of Systems ROS Status of ROS 10 or more systems reviewed and unremark able except as noted in history and below PFSH PFSH Social History Smoking status: Heavy tobacco smoker Little interest or pleasure in doing things: not at all Feeling down, depressed, or hopeless: not at all Exam Narrative Exam Narrative: Vital signs and Nursing Notes reviewed: Patient is afebrile with a normal pulse, normal blood pressure, she is not hypoxic with pulse ox of 98% on room air General: Awake, alert, oriented, no acute distress, lying comfortably on the stretcher HEENT: Normocephalic atraumatic, mucous membranes are moist and pink, eyes are clear, normal conjunctiva, vision is grossly intact, posterior pharynx is normal in appearance Neck: Supple, no meningeal signs, no anterior or posterior cervical lymphadenopathy Chest: Lungs are clear to auscultation with good air entry, there is no wheezing rhonchi or rales appreciated no accessory muscle use, patient is speaking in complete sentences-no chest wall tenderness to palpation CVS: Regular rate and rhythm S1-S2, no murmurs rubs or gallops, pulses are brisk and equal bilaterally ABD: Soft, nondistended, nontender, no rebound guarding or rigidity, bowel sounds are normal, no pulsatile masses appreciated Extremities: Moving all extremities, no lower extremity tenderness or swelling noted, negative Homans' sign, pulses are brisk and equal bilaterally Skin: Normal in appearance without rash,pallor, petechiae or purpura Neuro: No focal deficits Constitutional Vital Signs, click to edit/add: Last Vital Signs Temp 98.3 F 02/24/24 20:26 Pulse 80 02/24/24 20:26 Resp 16 02/24/24 20:26 BP 136/89 02/24/24 20:26 Pulse Ox 98 02/24/24 20:32 O2 Del Method Room Air 02/24/24 20:32 Course Vital Signs Vital signs: Vital Signs Temperature 98.3 F 02/24/24 20:26 Pulse Rate 80 02/24/24 20:26 Respiratory Rate 16 02/24/24 20:26 Blood Pressure 136/89 02/24/24 20:26 Pulse Oximetry 98 02/24/24 20:26 Oxygen Delivery Method Room Air 02/24/24 20:26 Temperature 98.3 F 02/24/24 20:26 Pulse Rate 80 02/24/24 20:26 Respiratory Rate 16 02/24/24 20:26 Blood Pressure 136/89 02/24/24 20:26 Pulse Oximetry 98 02/24/24 20:32 Oxygen Delivery Method Room Air 02/24/24 20:32 MDM - URI/Sore Throat MDM Narrative Medical decision making narrative: This 23-year-old female, non-smoker who is not on control presents for evaluation of 2 weeks of generalized illness which started with a sore throat and upper respiratory symptoms but now appears to be involving her chest with sensation that she cannot take a deep breath and exertional dyspnea in which she states even slight chores caused her to become short of breath requiring her to stop and rest. She has not had any fever throughout this illness. She has not had hemoptysis. She also states she has not had any appetite in the past 2 weeks. She denies the possibility of because she states she is not sexually active. The patient's vital signs and physical exam are benign. Her lungs are clear. Posterior pharynx is normal in appearance. Her abdomen is soft and nontender. EKG done upon arrival was a sinus rhythm with sinus arrhythmia at 75 bpm. She does have notable Q waves in leads II, III and aVF with no reciprocal changes or ST segment elevation. Prior EKG from 05/05/2023 was reviewed. She does have similar Q waves in leads II to III and aVF at that time but not as pronounced. Routine labs are ordered and are reviewed. She has a normal white count. Her hemoglobin is mildly low at 10.1. She has a normal D-dimer. Electrolytes are normal. Liver function tests are normal. Troponin and TSH are both normal. She was sent for a two-view chest x-ray. Her chest x- ray was reviewed by myself. There is no acute pulmonary infiltrate, normal cardiac borders, normal bony structures. The results of all of her labs and her x-ray and EKG were discussed with her. She thinks that she might just be exhausted. She has 3 young children that she cares for by herself without any help. She does not have a , boyfriend, their father or family that helps her out at home. She states she typically gets up at 5 in the morning and her kids do not go to bed till 11:00 at night. She feels comfortable being discharged home at this time. I did suggest that she start taking some vitamins to help boost her iron level and follow-up closely with her family physician. Lab Data Attestation: I reviewed the patient's lab results. Labs: Lab Results 02/24/24 Range/Units 20:49 WBC 8.1 (4.0-11.0) 10^3/uL RBC 4.02 L (4.20-5.40) 10^6/uL Hgb 10.1 L (12.0-16.0) g/dL Hct 32.4 L (36.0-48.0) % MCV 80.6 L (81.0-99.0) fL MCH 25.1 L (26.7-34.0) pg MCHC 31.2 (29.9-35.2) g/dL RDW 14.2 (11.0-15.0) % Plt Count 264 (150-450) 10^3/uL MPV 10.3 (9.5-13.5) fL Neut % (Auto) 55.5 (43.0-75.0) % Lymph % (Auto) 34.3 (20.5-60.0) % [place] % (Auto) 7.7 (1.7-12.0) % Eos % (Auto) 2.1 (0.9-7.0) % Baso % (Auto) 0.2 (0.2-2.0) % Neut # (Auto) 4.5 (1.4-6.5) 10^3/uL Lymph # (Auto) 2.8 (1.2-3.8) 10^3/uL [place] # (Auto) 0.6 (0.3-0.8) 10^3/uL Eos # (Auto) 0.2 (0.0-0.7) 10^3/uL Baso # (Auto) 0.0 (0.0-0.1) 10^3/uL Abs Immat Gran (auto) 0.02 (0.00-0.03) 10^3/uL Imm/Tot Granulo (auto) 0.2 (0.0-0.5) % D-Dimer 0.36 (<=0.59) mg/L FEU Sodium 139 (136-145) mmol/L Potassium 3.6 (3.5-5.1) mmol/L Chloride 103 (98-107) mmol/L Carbon Dioxide 26.1 (21.0-32.0) mmol/L Anion Gap 13.5 BUN 15.0 (7.0-18.0) mg/dL Creatinine 0.79 (0.55-1.02) mg/dL Est GFR ( Amer) >60 (>=60 mL/min/1.73m^2) Est GFR (Non-Af Amer) >60 (>=60 mL/min/1.73m^2) BUN/Creatinine Ratio 19.0 Glucose 84 (74-106) mg/dL Calcium 9.0 (8.5-10.1) mg/dL Total Bilirubin 0.3 (0.2-1.0) mg/dL AST 13 L (15-37) U/L ALT 20 (14-59) U/L Alkaline Phosphatase 55 (46-116) U/L Troponin I High Sens 7.1 (4.0-51.3) pg/mL Total Protein 7.4 (6.4-8.2) g/dL Albumin 3.6 (3.4-5.0) g/dL Globulin 3.8 g/dL Albumin/Globulin Ratio 0.9 TSH 2.074 (0.358-3.740) uIU/mL ECG Data Attestation: I personally reviewed and interpreted this ECG as follows: (Sinus rhythm at 75 bpm, normal axis, normal intervals, no acute ST segment elevation or T wave inversion Q waves are noted in leads II, III and aVF, there are no reciprocal changes or ST segment elevation) Discharge Plan Discharge Chief Complaint: Upper Respiratory Infection Clinical Impression: Anemia, Exertional dyspnea Patient Disposition: Home, Self-Care Time of Disposition Decision: 21:44 Condition: Good Prescriptions / Home Meds: No Action kgzaujofshnfzab-ubwxbugjl-TP [Bromfed DM] 2-30-10 mg/5 mL syrup 5 ml PO Q6H PRN (Reason: cold symptoms) Qty: 118 0RF methylprednisolone 4 mg tablets,dose pack 4 mg PO DAILY Patient Comments: take as directed ketorolac 10 mg tablet 10 mg PO TID PRN (Reason: pain) Qty: 10 0RF methocarbamol 750 mg tablet 750 mg PO TID PRN (Reason: pain) Qty: 20 0RF ondansetron 4 mg tablet,disintegrating 4 mg PO Q6H PRN (Reason: nausea and vomiting) Qty: 12 0RF methocarbamol 750 mg tablet 750 mg PO TID PRN (Reason: pain) Qty: 20 0RF Print Language: Danish Instructions: Dyspnea (ED), Anemia (ED) Referrals: Jewell Monzon RN [Primary Care Provider] - 1 week
[2024-02-24 20:58] LABS: Basophils Percent Auto 0.2 % (0.2-2.0); Eosinophils Absolute Auto 0.2 10^3/uL (0.0-0.7); Eosinophils Percent Auto 2.1 % (0.9-7.0); Hematocrit 32.4 % (36.0-48.0); Hemoglobin 10.1 g/dL (12.0-16.0); Immature Granulocytes Abs Auto 0.02 10^3/uL (0.00-0.03); Immature Granulocytes Pct Auto 0.2 % (0.0-0.5); Lymphocytes Absolute Auto 2.8 10^3/uL (1.2-3.8); Lymphocytes Percent Auto 34.3 % (20.5-60.0); Mean Corpuscular HGB Conc 31.2 g/dL (29.9-35.2); Mean Corpuscular Hemoglobin 25.1 pg (26.7-34.0); Mean Corpuscular Volume 80.6 fL (81.0-99.0); Mean Platelet Volume 10.3 fL (9.5-13.5); Monocytes Absolute Auto 0.6 10^3/uL (0.3-0.8); Monocytes Percent Auto 7.7 % (1.7-12.0); Neutrophils Absolute Auto 4.5 10^3/uL (1.4-6.5); Neutrophils Percent Auto 55.5 % (43.0-75.0); Platelet Count 264 10^3/uL (150-450); Red Blood Count 4.02 10^6/uL (4.20-5.40); Red Cell Distribution Width 14.2 % (11.0-15.0); White Blood Count 8.1 10^3/uL (4.0-11.0)
[2024-02-24 21:12] LABS: D Dimer 0.36 mg/L FEU (<=0.59)
[2024-02-24 21:13] LABS: Alanine Aminotransferase 20 U/L (14-59); Albumin Globulin Ratio 0.9; Albumin Level 3.6 g/dL (3.4-5.0); Alkaline Phosphatase 55 U/L (46-116); Anion Gap 13.5; Aspartate Amino Transferase 13 U/L (15-37); Bilirubin Total 0.3 mg/dL (0.2-1.0); Carbon Dioxide 26.1 mmol/L (21.0-32.0); Chloride 103 mmol/L (98-107); Estimated GFR (African America >60 (>=60 mL/min/1.73m^2); Estimated GFR (Non-African Ame >60 (>=60 mL/min/1.73m^2); Globulin 3.8 g/dL; Glucose 84 mg/dL (74-106); Potassium 3.6 mmol/L (3.5-5.1); Sodium 139 mmol/L (136-145); Total Protein 7.4 g/dL (6.4-8.2)
--- NOTE | 2024-02-24 21:15 | XR_ITS ---
[address] [address] Patient Name: FABRIZIO MOHR MRN: [id number] date: 2000 Sex: F Assigned Patient Location: ER Current Patient Location: Accession/Order Number: [id number] Exam Date: 02/24/2024 21:20 Report Date: 02/24/2024 23:18 At the request of: CAMERON MARKER Procedure: XR chest 2V EXAM: XR chest 2V HISTORY: CP, SOB COMPARISON: None. TECHNIQUE: PA and lateral chest. FINDINGS: Normal heart size and vascular pattern. No hilar or mediastinal prominence. Expanded and clear lungs. Well-defined pleural margins. No pneumothorax or pleural effusion. Normal thoracic osseous structures. XR/XR chest 2V IMPRESSION: Clear lungs with negative two-view chest. Electronically authenticated by: BART JOSUE Date: 02/24/2024 23:18
[2024-02-24 21:19] LABS: Troponin I High Sensitivity 7.1 pg/mL (4.0-51.3)
[2024-02-24 21:22] LABS: Thyroid Stimulating Hormone 2.074 uIU/mL (0.358-3.740)
== END 2024-02-24 21:52 | disposition home or self-care (01) ==
PROVIDERS: Emergency Provider Emergency Medicine
DX: R06.09 Other forms of dyspnea (principal); D64.9 Anemia, unspecified
CPT/HCPCS: 36415; 71046; 80053; 84443; 84484; 85025; 85378; 93005; 99285

== ENCOUNTER 2024-03-15 18:38 | Emergency (ER) | payer OTHER, SELFPAY ==
[2024-03-15 18:55] VITALS: BP 116/73; PULSE 79; TEMP 36.8; O2SAT 99; BMI 28.2
--- NOTE | 2024-03-15 19:18 | ED.FEMALEGU1 ---
HPI - Female Genitourinary General Chief complaint: Urogenital-Female Stated complaint: URINARY ISSUES Time Seen by Provider: 03/15/24 19:10 Source: patient Mode of arrival: walk-in Limitations: no limitations History of Present Illness HPI Narrative: 23-year-old female presents for dysuria and frequency. She is concerned she has a UTI. She is also had a vaginal discharge. She took a Diflucan but it did not help. LMP was about a week ago. Related Data Home Medications ?Medication ?Instructions ?Recorded ?Confirmed methylprednisolone 4 mg tablets in 4 mg PO DAILY 05/05/23 05/05/23 a dose pack Previous Rx's ?Medication ?Instructions ?Recorded jzqvnwykelqlxma-axcibenldnsyfuj-AH 5 ml PO Q6H PRN cold symptoms #118 01/10/23 2 mg-30 mg-10 mg/5 mL oral syrup mL (Bromfed DM) ketorolac 10 mg tablet 10 mg PO TID PRN pain #10 tabs 05/05/23 methocarbamol 750 mg tablet 750 mg PO TID PRN pain #20 tabs 05/05/23 ondansetron 4 mg disintegrating 4 mg PO Q6H PRN nausea and 05/05/23 tablet vomiting #12 tabs methocarbamol 750 mg tablet 750 mg PO TID PRN pain #20 tabs 10/08/23 cephalexin 500 mg capsule 500 mg PO TID 7 days #21 caps 03/15/24 metronidazole 250 mg tablet 250 mg PO TID #21 tabs 03/15/24 Allergies Allergy/AdvReac Type Severity Reaction Status Date / Time aripiprazole (From [facility]) AdvReac Severe Hallucinati Verified 03/15/24 18:59 ng meloxicam AdvReac Mild lethargic Verified 03/15/24 18:59 Review of Systems ROS Narrative A ten point review of systems is negative except as noted above. PFSH PFSH Social History Smoking status: Heavy tobacco smoker Little interest or pleasure in doing things: not at all Feeling down, depressed, or hopeless: not at all Exam Narrative Exam Narrative: Nurses note and vital signs reviewed and patient is not hypoxic. General: The patient appears well and in no apparent distress. Patient is resting comfortably on cart. Skin: Warm, dry, no pallor noted. There is no rash noted. Head: Normocephalic, atraumatic, EOMI. PERRL Ears, Nose, Mouth, and Throat: oral mucosa is moist. Nares patent. Cardiovascular: Regular Rate and Rhythm Respiratory: Patient is in no distress, no accessory muscle use, lungs are clear to auscultation, no wheezing, rales or rhonchi Back: non-tender GI: Soft and nontender Musculoskeletal: No joint swelling Neurological: A&O, normal speech Psychiatric: Cooperative Constitutional Vital Signs, click to edit/add: Last Vital Signs Temp 98.2 F 03/15/24 18:55 Pulse 79 03/15/24 18:55 Resp 18 03/15/24 18:55 BP 116/73 03/15/24 18:55 Pulse Ox 99 03/15/24 18:55 O2 Del Method Room Air 03/15/24 18:55 Course Vital Signs Vital signs: Vital Signs Temperature 98.2 F 03/15/24 18:55 Pulse Rate 79 03/15/24 18:55 Respiratory Rate 18 03/15/24 18:55 Blood Pressure 116/73 03/15/24 18:55 Pulse Oximetry 99 03/15/24 18:55 Oxygen Delivery Method Room Air 03/15/24 18:55 Temperature 98.2 F 03/15/24 18:55 Pulse Rate 79 03/15/24 18:55 Respiratory Rate 18 03/15/24 18:55 Blood Pressure 116/73 03/15/24 18:55 Pulse Oximetry 99 03/15/24 18:55 Oxygen Delivery Method Room Air 03/15/24 18:55 MDM - Female Genitourinary MDM Narrative Medical decision making narrative: She is not . There are white blood cells in her urine and gonorrhea and Chlamydia test are pending. If these were to be positive she would need to be contacted. 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 Treatment diagnosis and follow-up were discussed with the patient. Differential Diagnosis Differential diagnosis: Likely urinary tract infection, bacterial vaginosis, trichomoniasis and other (Gonorrhea, chlamydia) Lab Data Attestation: I reviewed the patient's lab results. Labs: Lab Results 03/15/24 Range/Units 19:00 Urine Color Yellow (YELLOW) Urine Clarity Slightly cloudy A (CLEAR) Urine pH 7.5 (5.0-9.0) Ur Specific [place] 1.020 (1.005-1.025) Urine Protein Negative (NEG/TRACE) mg/dL Urine Glucose (UA) Negative (NEGATIVE) mg/dL Urine Ketones Negative (NEGATIVE) mg/dL Urine Occult Blood Negative (NEGATIVE) Urine Nitrite Negative (NEGATIVE) Urine Bilirubin Negative (NEGATIVE) Urine Urobilinogen 0.2 (0.2-1.0) EU/dL Ur Leukocyte Esterase Trace A (NEGATIVE) Urine RBC 0-2 (0-2) #/HPF Urine WBC 10-20 A (NONE SEEN) #/HPF Ur Squamous Epith Cells Many A (NONE/RARE) #/LPF Urine Crystals None seen (None Seen) #/HPF Amorphous Sediment Moderate Urine Bacteria Large A (NONE SEEN) #/HPF Urine Casts None seen (NONE SEEN) #/LPF Urine Mucus None seen (NONE SEEN) Ur Culture Indicated? Yes Urine HCG, Qual Negative (NEGATIVE) Ref Lab Order Date 03/15/2024 Ref Lab Test Name Urine culture Ref Test Addition Info [facility] Discharge Plan Discharge Chief Complaint: Urogenital-Female Clinical Impression: Urinary tract infection Patient Disposition: Home, Self-Care Time of Disposition Decision: 19:53 Condition: Good Mode of Transportation: Private Vehicle Prescriptions / Home Meds: New cephalexin 500 mg capsule 500 mg PO TID 7 Days Qty: 21 0RF metronidazole 250 mg tablet 250 mg PO TID Qty: 21 0RF No Action [id number]-[id number] [Bromfed DM] 2-30-10 mg/5 mL syrup 5 ml PO Q6H PRN (Reason: cold symptoms) Qty: 118 0RF methylprednisolone 4 mg tablets,dose pack 4 mg PO DAILY Patient Comments: take as directed ketorolac 10 mg tablet 10 mg PO TID PRN (Reason: pain) Qty: 10 0RF methocarbamol 750 mg tablet 750 mg PO TID PRN (Reason: pain) Qty: 20 0RF ondansetron 4 mg tablet,disintegrating 4 mg PO Q6H PRN (Reason: nausea and vomiting) Qty: 12 0RF methocarbamol 750 mg tablet 750 mg PO TID PRN (Reason: pain) Qty: 20 0RF Print Language: Cymro Instructions: Urinary Tract Infection in Women (ED) Referrals: Jewell Monzon, RN [Primary Care Provider] - 1 week
[2024-03-15 19:21] LABS: Bilirubin Urine NEGATIVE (NEGATIVE); Blood Urine NEGATIVE (NEGATIVE); Color Urine YELLOW (YELLOW); Glucose Urine UA NEGATIVE (NEGATIVE); Ketones Urine NEGATIVE (NEGATIVE); Leukocyte Esterase Urine TRACE (NEGATIVE); Nitrite Urine NEGATIVE (NEGATIVE); Protein Urine NEGATIVE (NEG/TRACE); Urobilinogen Urine 0.2 EU/dL (0.2-1.0); pH Urine 7.5 (5.0-9.0)
[2024-03-15 19:24] LABS: HCG Qualitative Urine* NEGATIVE (NEGATIVE); Internal Control Within Normal Limits
[2024-03-15 19:25] LABS: Clarity Urine SLIGHTLY CLOUDY (CLEAR); Urine Microscopic Indicated YES
[2024-03-15 19:30] LABS: Amorphous Sediment Urine MODERATE; Bacteria Urine LARGE #/HPF (NONE SEEN); Cast Seen? NONE SEEN #/LPF (NONE SEEN); Crystals Seen? None Seen #/HPF (None Seen); Mucus Urine NONE SEEN (NONE SEEN); RBC Urine 0-2 #/HPF (0-2); Squamous Epithelial Cell Urine MANY #/LPF (NONE/RARE); Urine Culture Indicated YES
[2024-03-15 19:45] LABS: BOX Test Reference Lab Firelands; BOX Test Sent Out Urine Culture
--- OUTSIDE RECORDS SUMMARY | 2024-03-15 19:53 | XMS_ITS | CCD ---
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 is important that you follow up with a doctor, nurse practitioner, or physician?s recruitment assistant for ongoing care. If your symptoms become worse or you do not improve as expected and you are unable to reach your usual health care provider, you should return to the Emergency Department. We are available 24 hours a day. FABRIZIO CARBALLO has been given the following list of patient education materials, prescriptions and follow-up instructions: Follow-up Instructions: With: Address: When: Hever Perea [address] [facility], [address] [place] [phone] Whyd (1) In 3 days 10/09/2023 With: Address: When: Jewell Monzon [address] [place], [place] [phone] Whyd (1) In 3 days 10/09/2023 In the event that this physician does not participate in your insurance network, please consult with your insurance company to find a nearby participating provider. Patient Education Materials: Tension Headache, Adult; Urinary Tract Infection, Adult; Spondylolisthesis A MESSAGE TO ALL PATIENTS REGARDING OPIOIDS PRESCRIPTION OPIOIDS: WHAT YOU NEED TO KNOW Prescription opioids can be used to help relieve orwciqpv-zu-yfxnlu pain and are often prescribed following a [...] guidance from the Food and Drug Administration (www.fda.gov/Drugs (more content not included)... Normal [facility] HEMATOLOGYOrdered By: SYSTEM SYSTEM on 10-06-2023 Basophils/100 WBC (Bld) 0.7 % Normal 0.0 - 2.0 % Remisol Heme Basophils/Leukocytes Auto (Bld) [Pure # fraction] 0.0 E9/L Normal 0.0 - 0.2 E9/L Remisol Heme Eosinophils (Bld) [#/Vol] 0.2 E9/L Normal 0.0 - 0.5 E9/L Remisol Heme Eosinophils/100 WBC (Bld) 3.2 % Normal 0.0 - 8.0 % Remisol Heme Erythrocyte distribution width (RBC) [Ratio] 17.0 % High 10.9 - 14.2 % Remisol Heme Hematocrit (Bld) [Volume fraction] 33.9 % Low 34.0 - 46.0 % Remisol Heme Hemoglobin (Bld) [Mass/Vol] 11.1 g/dL Low 12.0 - 16.0 gm/dL Remisol Heme Lymphocytes (Bld) [#/Vol] 1.5 E9/L Normal 1.0 - 4.0 E9/L Rem[facility] Heme Lymphocytes/100 WBC (Bld) 23.4 % Normal 14.0 - 50.0 % Remisol Heme MCH (RBC) [Entitic mass] 25.0 pg Low 27.0 - 34.0 pg Remisol Heme MCHC (RBC) [Mass/Vol] 32.8 g/dL Normal 31.4 - 36.0 gm/dL Remisol Heme MCV (RBC) [Entitic vol] 76.3 fL Low 80.0 - 100.0 fL Remisol Heme Monocytes (Bld) [#/Vol] 0.7 E9/L Normal 0.2 - 1.0 E9/L Remisol Heme Monocytes/100 WBC (Bld) 10.4 % Normal 4.0 - 14.0 % Remisol Heme Neutrophils (Bld) [#/Vol] 4.0 E9/L Normal 2.0 - 7.5 E9/L Rem[facility] Heme Neutrophils/100 WBC (Bld) 62.3 % Normal 36.0 - 75.0 % Remisol Heme Platelet 291.0 E9/L Normal 150.0 - 500.0 E9/L Rem[facility] Heme Platelet mean volume (Bld) [Entitic vol] 8.8 fL Normal 6.4 - 10.8 fL Remisol Heme RBC (Bld) [#/Vol] 4.4 E12/L Normal 4.3 - 5.9 E12/L Rem[facility] Heme WBC corrected for nucl RBC Auto (Bld) [#/Vol] 6.5 E9/L Normal 4.0 - 11.0 E9/L [facility] Heme PT & PTTon 10-06-2023 aPTT Coag (PPP) [Time] 31.0 second(s) Normal 25.1-36.5 [facility] Comment on above: Result Comment: Para meter 15 days - 4 weeks 1 - 5 months 6 - 11 months 1 - 5 years 6 - 10 years 11 - 17 years PTT Mean: 35.4 (27.6-45.6) Mean: 33.5 (24.8-40.7) Mean: 32.4 (25.1-40.7) Mean: 31.6 (24.0-39.2) Mean: 31.6 (26.9-38.7) Mean: 31.0 (24.6-38.4) Pediatric Reference ranges were obtained from a study by Mickey Rivas et al. prepared from 1437 samples obtained at 7 different centers using the same coagulation reagent and instrumentation as [facility]. Currently there are no coagulation studies available worldwide for children to 14 days, and no normal ranges. Heparin therapeutic range (represented by Anti-Factor Xa activity of 0.2 - 0.4 U/mL) corresponds to PTT of 56.6 - 109.0 sec. Performed By: #### 1 [id number] #### [facility] [address] [place] [address] INR Coag (PPP) [Relative time] 1.04 {INR} Invalid Interpretation Code [facility] Comment on above: Result Comment: INR results are specifically intended to assess patients stabilized on long-term Anticoagulation therapy suggested INR?s ?Less Intensive Anticoagulation? 2.0 ? 3.0 Conventional Range 3.0 ? 4.5 Performed By: #### 1 [id number] #### [facility] [address] [place] [address] PT Coag (PPP) [Time] 11.7 second(s) Normal 9.4-12.5 [facility] Comment on above: Result Comment: 15 d ays - 4 weeks 1 - 5 months 6 -11 months 1-5 years 6-10 years 11 -17 years Mean: 11.2 (9.5-12.6) Mean: 11.0 (9.7-12.8) Mean: 11.0 (9.8-13.0) Mean: 11.3 (9.9-13.4) Mean: 11.7 (10.0-14.6) Mean: 11.8 (10.0 - 14.1) Pediatric Reference ranges were obtained from a study by Mickey Rivas et al. prepared from 1437 samples obtained at 7 different centers using the same coagulation reagent and instrumentation as [facility]. Currently there are no coagulation studies available worldwide for children to 14 days, and no normal ranges. Performed By: #### 1 [id number] #### [facility] [address] [place] [address] SEROLOGYOrdered By: Luis Mcfarlane on 10-06-2023 HCG.beta subunit (U) [Moles/Vol] Negative Normal [facility] Man Sero Troponin 0 Hr.on 10-06-2023 Troponin HS 4.60 pg/mL Low 10.10-27.10 [facility] Comment on above: Result Comment: The 95% CI (Confidence Interval) PPV (Positive Predictive Value) for myocardial infarction in females is 38 pg/mL, in males 51 pg/mL. The results should be used in conjunction with clinical conditions of myocardial infarction. (Access High Sensitivity Troponin I Instructions For Use, Bill Renata, October 2017) Performed By: #### 1 [id number] #### [facility] [address] [place] [address] Troponin 1 Hr.on 10-06-2023 Troponin HS 4.70 pg/mL Low 10.10-27.10 [facility] Comment on above: Order Comment: due a t 2018 Result Comment: The 95% CI (Confidence Interval) PPV (Positive Predictive Value) for myocardial infarction in females is 38 pg/mL, in males 51 pg/mL. The results should be used in conjunction with clinical conditions of myocardial infarction. (Access High Sensitivity Troponin I Instructions For Use, Bill [place], October 2017) Performed By: #### 1 [id number] #### [facility] [address] [place] [address] U BetaHcg Qualon 10-06-2023 HCG.beta subunit (U) [Moles/Vol] Negative Normal [facility] Comment on above: Performed By: #### 2 [id number] #### [facility] [address] [place] [address] UA with Cult Rflxon 10-06-19 24 Bilirubin Ql (U) Negative Normal Negative [facility] Comment on above: Performed By: #### 4 [id number] #### [facility] [address] [place] [address] Clarity (U) Ex.Turbid Abnormal Clear [facility] Comment on above: Performed By: #### 4 [id number] #### [facility] [address] [place] [address] Color (U) [place] Abnormal Yellow [facility] Comment on above: Result Comment: Micr oscopic readings are only performed on those samples that meet specific criteria set forth by [facility]. Performed By: #### 4 [id number] #### [facility] [address] [place] [address] Crystals.amorphous Computer assisted Ql (U) Present Abnormal [facility] Comment on above: Performed By: #### 4 [id number] #### [facility] [address] [place] [address] Epithelial cells.squamous Auto (Urine sed) [#/Area] >10 Invalid Interpretation Code [facility] Comment on above: Performed By: #### 4 [id number] #### [facility] [address] [place] [address] Glucose Ql (U) Negative Normal Negative [facility] Comment on above: Performed By: #### 4 [id number] #### [facility] [address] [place] [address] Hemoglobin Auto test strip (U) [Mass/Vol] Negative Normal Negative [facility] Comment on above: Performed By: #### 4 [id number] #### [facility] [address] [place] [address] Ketones Auto test strip Ql (U) Negative Normal Negative [facility] Comment on above: Performed By: #### 4 [id number] #### [facility] [address] [place] [address] Leukocyte esterase Auto test strip Ql (U) 75 Yeimi/uL Abnormal Negative [facility] Comment on above: Performed By: #### 4 [id number] #### [facility] [address] [place] [address] Mucus Auto Ql (U) Negative Normal Negative [facility] Comment on above: Performed By: #### 4 [id number] #### [facility] [address] [place] [address] Nitrite Auto test strip Ql (U) Negative Normal Negative [facility] Comment on above: Performed By: #### 4 [id number] #### [facility] [address] [place] [address] pH (U) 7.0 [pH] Invalid Interpretation Code 5.0-9.0 [facility] Comment on above: Performed By: #### 4 [id number] #### [facility] [address] [place] [address] Protein Ql (U) 1+ mg/dL Abnormal Negative [facility] Comment on above: Performed By: #### 4 [id number] #### [facility] [address] [place] [address] Specific gravity (U) [Rel density] 1.012 Invalid Interpretation Code 1.005-1.030 [facility] Comment on above: Performed By: #### 4 [id number] #### [facility] [address] [place] [address] Urobilinogen (U) [Mass/Vol] Negative Normal Negative [facility] Comment on above: Performed By: #### 4 [id number] #### [facility] [address] [place] [address] WBC Auto (Urine sed) [#/Area] 0-5 Normal 0-5 [facility] Comment on above: Performed By: #### 4 [id number] #### [facility] [address] [place] [address] Type of Urine collection method Clean Catch Normal [facility] Comment on above: Performed By: #### 4 [id number] #### [facility] [address] [place] [address] URINALYSISOrdered By: SYSTEM SYSTEM on 10-06-2023 Bilirubin Ql (U) Negative Normal Negativemg/ d L [facility] UA Auto SS Clarity (U) Ex.Turbid *ABN* (10/06/23 10:15 PM) Invalid Interpretation Code Clear [facility] UA Auto SS Color (U) [place] 2 *ABN* (10/06/23 10:15 PM) Invalid Interpretation Code Yellow [facility] UA Auto SS Comment on above: Interpretive Data: M icroscopic readings are only performed on those samples that meet specific criteria set forth by [facility]. Crystals.amorphous Computer assisted Ql (U) Present graded/HPF Invalid Interpretation Code [facility] UA Auto SS Epithelial cells.squamous Auto (Urine sed) [#/Area] >10 graded/HPF Invalid Interpretation Code [facility] UA Auto SS Glucose Ql (U) Negative Normal Negativemg/d L [facility] UA Auto SS Hemoglobin Auto test strip (U) [Mass/Vol] Negative Normal Negativemg/d L [facility] UA Auto SS Ketones Auto test strip Ql (U) Negative Normal Negativemg/d L [facility] UA Auto SS Leukocyte esterase Auto test strip Ql (U) 75 Yeimi/uL Yeimi/uL Invalid Interpretation Code NegativeLeu/ uL [facility] UA Auto SS Mucus Auto Ql (U) Negative Normal Negativegr ad ed/LPF [facility] UA Auto SS Nitrite Auto test strip Ql (U) Negative Normal Negativemg/d L [facility] UA Auto SS pH (U) 7.0 *NA* (10/06/23 10:15 PM) Invalid Interpretation Code 5.0 - 9.0 [facility] UA Auto SS Protein Ql (U) 1+ mg/dL Invalid Interpretation Code Negativemg/d L [facility] UA Auto SS Specific gravity (U) [Rel density] 1.012 *NA* (10/06/23 10:15 PM) Invalid Interpretation Code 1.005 - 1.030 [facility] UA Auto SS Urobilinogen (U) [Mass/Vol] Negative Normal Negativemg/d L [facility] UA Auto SS WBC Auto (Urine sed) [#/Area] 0-5 graded/HPF Normal 0-5graded/HP F [facility] UA Auto SS URINALYSISOrdered By: Charlie Bowman on 10-06-2023 UA Spec Desc Clean Catch (10/06/23 10:15 PM) Normal [facility] UA Auto SS eGFRon 10-06-2023 eGFR 105 mL/min/1.73 m2 Normal >=59 [facility] Comment on above: Order Comment: Order added by Discern Expert. Performed By: #### 1 [id number] #### [facility] [address] [place] [address] Ambulatory Visit Summaryon 0 05-15-2023 Ambulatory Visit Summary FABRIZIO CARBALLO :2000 Visit Date:05/15/2023 Ambulatory Visit Instructions Your Diagnosis S/P appendectomy Depression ROBERT (generalized anxiety disorder) Fatigue Class 1 obesity due to excess calories in adult BMI 33.0-33.9,adult Your Care Team Attending Physician - Nicolás MSN, HSE COORDINATOR-WELL DRILL OPERATOR, Jewell Alcala Primary Care Physician - Nicolás MSN, HSE COORDINATOR-WELL DRILL OPERATOR, Jewell Alcala This Is Your Medications List sertraline (sertraline 25 mg Tab) [Image Removed: STOP]Stop taking these medications acetaminophen (acetaminophen 325 mg Tab) docusate (Colace 100 mg Cap) Procedures Performed Laparoscopic appendectomy (05/09/2023), delivery, delivery, Fracture of lower jaw, closed. Discharge Vitals Temperature (Temporal Artery) 36.7 ?C Heart Rate (Peripheral) 93 Respiratory Rate 16 Blood Pressure 132/74 Height 168 cm Height 66 in Weight 86 kg Weight 189.2 lb BMI 30.47 What to do next You Need to Schedule the Following Appointments Follow Up with Nicolás MSN, HSE COORDINATOR-MUSTAPHA, Jewell Alcala When: In 1 month Comments: mood Where: [address] [place] [address] Someone Will Contact You Regarding These Appointments [facility] External Ambulatory Referral, Patient choice/referral by family/friend, Counseling, [facility], 05/15/23 13:25:00 EST, Depression Normal [facility] Medicine Office/Clini c Noteon 05-15-2023 Family Medicine Office/Clinic Note Chief Complaint TCM F/U pt had appendix removed 05/08/23. Pt C/o fatigue, tingling,brain fog x 1 week History of Present Illness a 22-year-old female who is presenting today for 1 week's TCM with concerns for shakiness and fatigue. The patient reports that her headaches have significantly improved. However, she is currently dealing with severe depression and anxiety, which have become unmanageable. These conditions are significantly impacting her daily life, including a sensation of her body vibrating for about 1.5 to 2 weeks. She experiences sudden episodes of losing control over her limbs, followed by a sensation of vibrating. These episodes are often accompanied by intense feelings of euphoria that require her to rest for 10 to 15 minutes. After resting, she feels well but the episodes recur. She has not sought professional help or counseling. She has avoided medication and counseling due to her dislike for both. She is currently in a state where she feels unable to continue living with these symptoms and has expressed a desire to change her current situation. She has previously been prescribed Zoloft and other medications, including during her time in foster care and while , but she is unsure if these treatments were effective. She was contacted by [facility] in [place] about her insurance in 03/2023 but has not received any further updates. She is seeking treatment options for her depression, anxiety, and cognitive difficulties, including concentration problems. Over the past two nights, she has experienced poor sleep quality. Initially, during her illness, she slept extensively during the day. Currently, her sleep pattern is characterized by brief awakenings to drink water and then returning to sleep. She underwent an appendectomy at [facility], but she does not remember the exact date of the procedure. She has 3 children, ages5, 3, and 2. Review of Systems PHQ Score Initial Depression Screen Score: 4 SCORE Negative as stated in the HPI. Physical Exam Vitals & Measurements T: 36.7 ?C(Temporal Artery) HR: 93(Peripheral) RR: 16 BP: 132/74 SpO2: 98% HT: 66 in HT: 168 cm WT: 86 kg WT: 189.2 lb BMI: 30.47 Constitutional: Well-groomed, well-nourished, no signs of acute distress. HEENT: Head normocephalic, sclera is clear. Cardiothoracic: Heart rate and rhythm is regular strong, normal S1 and S2. No murmurs, rubs, or bruits auscultated. No peripheral edema, peripheral pulses +2 Respiratory: Lung sounds are clear throughout, respirations regular nonlabored. Abdomen/GI: Abdomen soft nondistended. Musculoskeletal: Gait is steady, full range of motion. Integument: No rashes or lesions noted to the exposed skin. Psychiatric: Alert and oriented x 3, Good eye contact. Tearful. Assessment/Plan 1. S/P appendectomy (Z90.49: Acquired absence of other specified parts of digestive tract) She had her appendix taken out last week. Overall, the healing process is going well. She denies any pain. She was encouraged to continue moving and take the Colace as needed. She will monitor for signs and symptoms of infection and that she knows if any do occur. 2. Depression (F33.1: Major depressive disorder, recurrent, moderate) Big concern with her depression. We did discuss this in 09/2022. She lost her mother, and it appears to be still not over it and still grieving. We talked to her about counseling at last visit and this visit. She was going to look into it, but never did. She says she has done [facility]. I will go ahead and send it through and hopefully they will call her within this week or next. I will go ahead and start her on the sertraline at 25, she was on most recently. Side effects were reviewed with the patient. She was encouraged to take it at nighttime. She will notify the office of any side effects or worsening of symptoms. Ordered: [facility] External Ambulatory Referral 3. ROBERT (generalized anxiety disorder) (F41.1: Generalized anxiety disorder) ROBERT score of 9. Again, we will start her back on sertraline. Follow up with me in 4 weeks. Ordered: [facility] External Ambulatory Referral 4. Fatigue (R53.83: Other fatigue) The biggest issue is complaining of fatigue and shakiness. I feel this is more associated with depression and anxiety. She has not been sleeping well ever since her mother over the summer. I will go ahead and initiate the antidepressants. Hopefully, that will assist. If not, we will further evaluate. 5. Class 1 obesity due to excess calories in adult (E66.09: Other obesity due to excess calories) Calorie restriction along with routine aerobic exercises discussed in order to avoid hypertension, osteoarthritis, metabolic syndrome and/or worsening of chronic underlying disease states. 6. BMI 33.0-33.9,adult (Z68.33: Body mass index [BMI] 33.0-33.9, adult) See #5. Orders: sertraline, 25 mg = 1 tab(s), Oral, Daily, # 30 tab(s), Refills(s) 0, Pharmacy: [facility] (more content not included)... Normal [facility] Comment on above: Result Comment: Elec tronically Signed By: Nicolás MINA, HSE COORDINATOR-WELL DRILL OPERATOR, Jewell Alcala\.br\Date and Time Signed: 05/15/23 20:01 EST\.br\Electronically Co-Signed By: Dayanara Garcia\.br\Date and Time Co-Signed: 05/15/23 15:06 EST Patient Educationon 05-15-19 24 Patient Education Mental and Behavioral Health [...] pray, or go to a place of bahai. ? Do some deep breathing. To do [...] or salt (sodium). General instructions ? Take jgti-joq-qwgqmac and prescription medicines only as told by [...] Mira: www.[facility].ne (more content not included)... [facility] Physician Referralon 024 Physician Referral [id number] #1.00TIFF [facility] Provider Letteron 05-14-2023 Provider Letter May 14, 2023 FABRIZIO CARBALLO [address] [place] [phone] FABRIZIO CARBALLO 2000 Dear Fabrizio, We have been trying to reach you with no success. It is important that you return our call upon receiving this letter. Also, at the time of your call, please provide us with your current information. Thank you for your prompt attention to this matter. Sincerely, DAPHNE Fuller, diamond powder mixer [place] [address] [place] [address] [facility] IntraOperative Documentson 0 05-11-2023 IntraOperative Documents [id number] 7#1.00TIFF [facility] Antibody IDon 05-10-2023 Antibody ID Anti-D Invalid Interpretation Code [facility] Comment on above: Order Comment: Order ed by System Performed By: #### 2 [id number] #### [facility] [address] [place] [address] Nbr of Panels 2 [facility] Comment on above: Order Comment: Order ed by System Performed By: #### 2 [id number] #### [facility] [address] [place] [address] Consent for Anesthesiaon Consent for Anesthesia [id number] 0#1.00TIFF [facility] Discharge Instructionson Discharge Instructions [id number]#1.00TIFF [facility] IntraOperative Documentson 0 05-10-2023 IntraOperative Documents [id number] 1#1.00TIFF [facility] Main OR Intraoperative Recor don 05-10-2023 Main OR Intraoperative Record IntraOp Document Type FT Summary Primary Physician: Jamie Steven MD Finalized Date/Time: 05/10/23 12:28:53 Pt. Name: FABRIZIO CARBALLO/Sex: 2000 Female Med Rec #: [id number] Physician: Jamie Steven MD Financial #: [id number] Pt. Type: O Room/Bed: [facility]/ Admit/Disch: 05/08/23 22:59:07 - 05/09/23 19:35:20 Institution: Case Times FT Entry 1 Patient Times In Room 05/09/23 08:27:00 Out Room 05/09/23 09:30:00 Procedure Times Start 05/09/23 08:58:00 Stop 05/09/23 09:25:00 Anesthesia Times Start 05/09/23 08:27:00 Stop 05/09/23 09:30:00 Last Modified By: Monique Yarbrough RN 05/09/23 09:30:08 General Comments: 05/10/23 Chart opened to review and send charges [facility] CSFA Case Attendance FT Entry 1 Entry 2 Entry 3 Case Attendee Maurizio SANDRA, Jamie Gibson BAND SCROLL SAW OPERATOR, Yvonne Calixto PA-C, Franny Hurd Role Performed Surgeon - Primary BAND SCROLL SAW OPERATOR/SA PA/COMMUNICATIONS SCIENTIST Time In 05/09/23 08:27:00 05/09/23 08:27:00 05/09/23 09:00:00 Time Out 05/09/23 09:30:00 05/09/23 09:30:00 05/09/23 09:30:00 Procedure APPENDECTOMY APPENDECTOMY APPENDECTOMY LAPAROSCOPIC(.) LAPAROSCOPIC(.) LAPAROSCOPIC(.) Comments Last Modified By: Linnea RN, Monique Yarbrough RN, Monique Cardoso RN 05/09/23 09:30:09 05/09/23 09:30:09 05/09/23 09:30:09 Entry 4 Entry 5 Entry 6 Case Attendee Christopher, Mabel Yarbrough RN, Monique Bedoya AQUACULTURE WORKER, Lizeth Nichole Role Performed Scrub - Primary Weight Caller - Primary AQUACULTURE WORKER Time In 05/09/23 08:27:00 05/09/23 08:27:00 05/09/23 08:27:00 Time Out 05/09/23 09:30:00 05/09/23 09:30:00 05/09/23 09:30:00 Procedure APPENDECTOMY APPENDECTOMY APPENDECTOMY LAPAROSCOPIC(.) LAPAROSCOPIC(.) LAPAROSCOPIC(.) Comments DR OREILLY SUPERVISING Last Modified By: Linnea RN, Monique Yabrrough RN, Monique Cardoso RN 05/09/23 09:30:09 05/09/23 09:30:09 05/09/23 09:30:09 General Comments: LIBERTAD MELGAR - BUTCHER - OBSERVING. JESSICA BANKShiv counselor Protocols FT Pre-Care Text: Implements protective measures prior to operative or invasive procedure, confirms identity before the operative or invasive procedure, verifies operative procedure, surgical site, and laterality Entry 1 Procedure(s) APPENDECTOMY Patient Identity Birthday, Blood Band, LAPAROSCOPIC(.) Verified (select at ID Band Check, Patient least 2): Participation Consents / H and P Anesthesia Consent, Operative Site N/A Verified HandP, Surgery/Procedure Marking Verified Consent, Transfusion Consent Surgical Site Yes Laterality Verified Yes Verified Procedure Verified Yes Correct Patient Yes Position Verified Availability Equipment, Medication Prep Dry Yes Verified (If Applicable) PreOp Antibiotic No Time Out Maurizio SANDRA, Jamie Hernandez, Given Participants Paige VELEZ, Christopher Whittaker Madison A, Linnea LOPEZ, Elke Sarmiento CRNA, Brandy J. Time Out Complete 05/09/23 08:56:00 Outcomes Met? Yes Last Modified By: Monique Yarbrough RN 05/09/23 09:05:06 Post-Care Text: The patient is free from signs and symptoms of injury caused by extraneous objects Allergy Information FT Pre-Care Text: Verifies allergies Entry 1 Allergies Reviewed? Yes Allergies Reviewed Self/Patient With Outcomes Met? Yes Last Modified By: Monique Yarbrough RN 05/09/23 09:05:12 Post-Care Text: The patient received appropriate medication(s) safely administered during the perioperative period Surgical Procedures FT Entry 1 Procedure Description Procedure APPENDECTOMY Modifiers . LAPAROSCOPIC Surgeon Description APPENDECTOMY LAPAROSCOPIC Primary Procedure Yes Primary Surgeon Jamie Steven MD Start 05/09/23 08:58:00 Stop 05/09/23 09:25:00 Anesthesia Type General Surgical Service General Wound Class 3 - Contaminated Last Modified By: Monique Yarbrough RN 05/09/23 09:29:43 General Case Data FT Pre-Care Text: Classifies surgical wound, implements aseptic technique, initiates traffic control Entry 1 Case Information OR OR 2 FT Case Level Level 3 Wound Class 3 - Contaminated Specialty General ASA Class 2E Preop Diagnosis APPENDICITIS Postop Same As Preop Yes Postop Diagnosis APPENDICITIS Outcomes Met? Yes Last Modified By: Monique Yarbrough RN 05/09/23 09:42:39 Post-Care Text: The patient is free from signs and symptoms of infection Skin Assessment (Pre Procedure) FT Pre-Care Text: Implements protective measures to prevent skin/ tissue injury due to thermal or mechanical sources Evaluates for signs and symptoms of physical injury to skin and tissue Entry 1 Skin Integrity Intact, [place], Warm, and Skin Abnormality Yes Dry Outcomes Met? Yes Last Modified By: Linnea LOPEZ,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 7 to 10 days, only if needed With: Address: When: trauma clinic [address] [facility] 3, second floor, [address] [place] [address] Within 1 to 2 weeks Comments: Call to schedule/confirm followup appointment. May be telephone visit. In the event that this physician does not participate in your insurance network, please consult with your insurance company to find a nearby participating provider. Comment: FANI Marroquin LEAYAH M, have received the attached patient education materials/instructio ns and have verbalized understanding: Patient Signature Date Clinican/Nurse Signature Date HERE ARE THE MEDICATION CHANGES THAT OCCURRED DURING YOUR HOSPITAL STAY New Medications [employer] [id number], [address] [place] [phone], [phone] docusate (Colace 100 mg Cap) 1 Capsules By Mouth 2 times a day for 10 Days. Refills: 0. Last Dose: Next Dose: oxycodone (oxyCODONE 5 mg Tab) 1 Tablets By Mouth every 6 hours as needed as needed for pain for 3 Days. Refills: 0. Last Dose: Next Dose: Other Medications acetaminophen (acetaminophen 325 mg Tab) 2 Tablets By Mouth every 4 hours as needed Pain 1-3. Last Dose: Next Dose: No Longer Take the Following Medications brompheniramine/dext romethorphan/PSE (Bromfed DM oral syrup) 5 Milliliter By Mouth 4 times a day as needed for cough and congestion. Refills: 0. propranolol (propranolol 80 mg Cap-ER) 1 Capsules By Mouth every day. Refills: 1. sumatriptan (SUMAtriptan 25 mg Tab) 1 Tablets By Mouth every day as needed for migraine headache. may repeat dose after 2 hours up to a maximum of 200 mg in 24 hours. Refills: 1. Comment: MEDICATION LIST PROVIDED FOR YOU IS A LIST OF YOUR CURRENT MEDICATIONS. PLEASE CARRY THIS WITH YOU AT ALL TIMES. acetaminophen (acetaminophen 325 mg Tab) 2 Tablets By Mouth every 4 hours as needed Pain 1-3. docusate (Colace 100 mg Cap) 1 Capsules By Mouth 2 times a day for 10 Days. Refills: 0. oxycodone (oxyCODONE 5 mg Tab) 1 Tablets By Mouth every 6 hours as needed as needed for pain for 3 Days. Refills: 0. Pharmacy Information: [facility] [place] Comment: PATIENT EDUCATION INFORMATION Instructions: Appendicitis, Adult The appendix is a tube in the body that is shaped like a finger. It is attached to the large intestine. Appendicitis means that this tube is swollen (inflamed). If this is not treated, the tube can tear. This can lead to a life-threatening infection. This condition can also cause pus to build up in the appendix. What are the causes? ? Something blocking the appendix, such as: ? A ball of poop (stool). ? Lymph glands that are bigger than normal. ? Injury to the belly (abdomen). ? Sometimes the cause is not known. What increases the risk? You are more likely to get this condition if you are 10?30 years old. What are the signs or symptoms? ? Pain or tenderness that starts around the belly button and: ? Moves toward the lower right belly. ? Gets worse with time. ? Gets worse if you cough. ? Gets worse if you make a sudden move. ? Vomiting or feeling like you may vomit (nauseous). ? Not wanting to eat as much as normal (loss of appetite). ? A fever. ? Trouble pooping (constipation). ? Watery poop (diarrhea). ? Feel generally sick (malaise). How is this treated? In general, this condition is tr (more content not included)... [facility] Insurance Correspondence Off iceon 05-09-2023 Insurance Correspondence Office [id number] #[id number] [facility] Interdisciplinary Note - Chin e Manageron 05-09-2023 Interdisciplinary Note - Administrative Support Assistant Pt is off the floor for Lap Appy. ANt dc 05/09 or 05/10. CRM to follow. [facility] Comment on above: Result Comment: Elec tronically Signed By: Monica Vazquez\Date and Time Signed: 05/09/23 09:48 EST Lipase Levelon 05-09-2023 Lipase Lvl 19 unit/L Normal 13-58 [facility] Comment on above: Performed By: #### 2 986909, 7874890, 2944735, 84253897, 6221187 ####[facility] [address] [place] [address] Main OR PACU I Recordon 04-20 Main OR PACU I Record PACU Phase I Document Type FT Summary Primary Physician: Jamie Steven MD Finalized Date/Time: 05/09/23 10:42:50 Pt. Name: FABRIZIO CARBALLO/Sex: 2000 Female Med Rec #: [id number] Physician: Jamie Steven MD Financial #: [id number] Pt. Type: O Room/Bed: [place] [address] Admit/Disch: 05/08/23 22:59:07 - Institution: Case Times PACU I FT Pre-Care Text: Identifies barriers to communication and implements measures to provide psychological support Develops individualized plan of care, and ensures continuity of care Maintains patient's dignity and privacy, and maintains patient confidentiality Identifies and reports philosophical, cultural, and spiritual beliefs and values Identifies individual values and wishes concerning care Implements aseptic technique, and administers prescribed antibiotic therapy and immunizing agents as ordered Evaluates postoperative tissue perfusion Implements thermoregulation measures, and monitors body temperature Evaluates postoperative respiratory status Evaluates postoperative cardiac status Evaluates postoperative neurological status Assesses pain control, collaborated in initiating patient-controlled analgesia and implements alternative methods of pain control Verifies allergies, administers prescribed medications and solutions, evaluates response to medications Entry 1 In PACU I 05/09/23 09:32:00 Discharge from PACU 05/09/23 10:02:00 I Outcomes Met? Yes Last Modified By: Srinivas LOPEZ, Brittny Conner 05/09/23 10:42:39 Post-Care Text: The patient demonstrates knowledge of the expected response to the operative or invasive procedure The patient's care is consistent with the individualized perioperative plan of care The patient's right to privacy is maintained The patient's value system, lifestyle, ethnicity, and culture are considered, respected, and incorporated into the perioperative plan of care The patient participates in decisions affecting his or her perioperative plan of care The patient is free from signs and symptoms of infection The patient has wound/tissue perfusion consistent with or improved from baseline levels established preoperatively The patient is at or returning to normothermia at the conclusion of the immediate postoperative period The patient's respiratory function is consistent with or improved from baseline levels established preoperatively The patient's cardiovascular status is consistent with or improved from baseline levels established preoperatively The patient's cardiovascular status is consistent with or improved from baseline levels established preoperatively The patient demonstrates and/or reports adequate pain control throughout the perioperative period The patient received appropriate medication(s), safely administered during the perioperative period Acuity Level PACU I FT Entry 1 Start Time 05/09/23 09:32:00 Stop Time 05/09/23 10:02:00 Acuity Level Acuity Level I Last Modified By: Brittny Espino RN 05/09/23 10:42:47 Finalized By: Brittny Espino RN Document Signatures Signed By: Brittny Espino RN 05/09/23 10:42 Normal [facility] Main OR Preoperative Recordo n 05-09-2023 Main OR Preoperative Record PreOp Document Type FT Summary Primary Physician: Jamie Steven MD Finalized Date/Time: 05/09/23 09:03:34 Pt. Name: FANIFABRIZIO/Sex: 2000 Female Med Rec #: [id number] Physician: Jamie Steven MD Financial #: [id number] Pt. Type: O Room/Bed: [facility]/ Admit/Disch: 05/08/23 22:59:07 - Institution: Case Times PreOp FT Pre-Care Text: Verifies consent for planned procedure, identifies individual values and wishes concerning care, includes family members in perioperative teaching Entry 1 Patient Times. In Pre Surgery 05/09/23 07:45:00 Out Pre Surgery 05/09/23 08:25:00 Outcomes Met? Yes Last Modified By: Monique Yarbrough RN 05/09/23 09:03:28 Post-Care Text: The patient participates in decisions affecting his or her perioperative plan of care Finalized By: Monique Yarbrough RN Document Signatures Signed By: Monique Yarbrough RN 05/09/23 09:03 Normal [facility] Monitor Recordon 05-09-2023 Monitor Record [id number] 5#1.00TIFF Normal [facility] Monitor Record [id number] 0#1.00TIFF Normal [facility] RAD - Preliminary Cat Scan R eporton 05-09-2023 RAD - Preliminary Cat Scan Report [id number] 1#1.00TIFF Normal [facility] UA With Cult Reflexon 2023 Bilirubin Ql (U) Negative Normal Negative [facility] Comment on above: Performed By: #### 2 266295, 20744608, 7827135 #### [facility] [address] [place] [address] Clarity (U) CLEAR Normal Clear [facility] Comment on above: Performed By: #### 2 374738, 13635361, 0439362 #### [facility] [address] [place] [address] Color (U) YELLOW Normal Yellow [facility] Comment on above: Performed By: #### 2 455170, 82963624, 9129649 #### [facility] [address] [place] [address] Epithelial cells.squamous LM.HPF (Urine sed) [#/Area] 0-2 Normal 0-2 [facility] Comment on above: Performed By: #### 2 249570, 97373665, 9333694 #### [facility] [address] [place] [address] Glucose Test strip (U) [Mass/Vol] Negative Normal Negative [facility] Comment on above: Performed By: #### 2 861940, 95557964, 2812641 #### [facility] [address] [place] [address] Hemoglobin Ql (U) Negative Normal Negative [facility] Comment on above: Performed By: #### 2 918831, 86457678, 0841858 #### [facility] [address] [place] [address] Ketones (U) [Mass/Vol] Negative Normal Negative [facility] Comment on above: Performed By: #### 2 431211, 89361670, 9385191 #### [facility] [address] [place] [address] [place].plasma/[place]. RBC (Bld) [Mass ratio] 0-3 Normal 0-[address] [facility] Comment on above: Performed By: #### 2 240589, 11577384, 4327535 #### [facility] [address] [place] [address] Nitrite Ql (U) Negative Normal Negative [facility] Comment on above: Performed By: #### 2 401436, 86541563, 8894304 #### [facility] [address] [place] [address] pH (U) 7.0 [pH] Invalid Interpretation Code 5.0-9.0 [facility] Comment on above: Performed By: #### 2 765856, 00729609, 8444757 #### [facility] [address] [place] [address] Protein (U) [Mass/Vol] Negative Normal Negative [facility] Comment on above: Performed By: #### 2 362989, 98253157, 2855202 #### [facility] [address] [place] [address] Specific gravity (U) [Rel density] 1.015 Invalid Interpretation Code 1.005-1.030 [facility] Comment on above: Performed By: #### 2 596834, 34090773, 8354298 #### [facility] [address] [place] [address] Type of Urine collection method Cerda Normal [facility] Comment on above: Performed By: #### 2 861118, 70344910, 8244888 #### [facility] [address] [place] [address] Urobilinogen Qn (U) 0.2 {Calderon'U}/dL Normal 0.0-1.0 [facility] Comment on above: Performed By: #### 2 631182, 49517651, 9371789 #### [facility] [address] [place] [address] WBC Auto Ql (U) Negative Normal Negative [facility] Comment on above: Performed By: #### 2 826224, 88348099, 1545248 #### [facility] [address] [place] [address] WBC LM.HPF (Urine sed) [#/Area] 0-5 Normal 0-5 [facility] Comment on above: Performed By: #### 2 214259, 70407333, 7387136 #### [facility] [address] [place] [address] URINALYSISOrdered By: Juan Taveras on 05-09-2023 Bilirubin Ql (U) Negative (05/09/23 8:45 AM) Normal Negative FT UA Auto SS Clarity (U) Clear (05/09/23 8:45 AM) Normal Clear FT UA Auto SS Color (U) Yellow (05/09/23 8:45 AM) Normal Yellow [facility] UA Auto SS Epithelial cells.squamous LM.HPF (Urine sed) [#/Area] 0-2 /HPF Normal 0-2/HPF FT UA Aut o SS Glucose Test strip (U) [Mass/Vol] Negative (05/09/23 8:45 AM) Normal Negative [facility] UA Auto SS Hemoglobin Ql (U) Negative (05/09/23 8:45 AM) Normal Negative [facility] UA Auto SS Ketones (U) [Mass/Vol] Negative (05/09/23 8:45 AM) Normal Negative [facility] UA Auto SS [place].plasma/[place]. RBC (Bld) [Mass ratio] 0-3 /HPF Normal 0-3/HPF FT UA A uto SS Nitrite Ql (U) Negative (05/09/23 8:45 AM) Normal Negative [facility] UA Auto SS pH (U) 7.0 *NA* (05/09/23 8:45 AM) Invalid Interpretation Code 5.0 - 9.0 [facility] UA Auto SS Protein (U) [Mass/Vol] Negative (05/09/23 8:45 AM) Normal Negative [facility] UA Auto SS Specific gravity (U) [Rel density] 1.015 *NA* (05/09/23 8:45 AM) Invalid Interpretation Code 1.005 - 1.030 [facility] UA Auto SS UA Spec Desc Cerda (05/09/23 8:45 AM) Normal [facility] UA Auto SS Urobilinogen Qn (U) 0.2164022 {Calderon'U}/dL Normal 0.0 - 1.0 EU/dL [facility] UA Auto SS WBC Auto Ql (U) Negative (05/09/23 8:45 AM) Normal Negative [facility] UA Auto SS WBC LM.HPF (Urine sed) [#/Area] 0-5 /HPF Normal 0-5/HPF [facility] UA Auto SS eGFRon 05-09-2023 eGFR 128 mL/min/1.73 m2 Normal >=59 [facility] Comment on above: Order Comment: Order added by Discern Expert. Performed By: #### 2 413519, [id number], 3398082 #### [facility] [address] [place] [address] eGFR 123 mL/min/1.73 m2 Normal >=59 [facility] Comment on above: Order Comment: Order added by Discern Expert. Performed By: #### 2 992683, 0555207, 0614449, 60432410, 7714783 ####[facility] [address] [place] [address] CHEMISTRYOrdered By: SYSTEM SYSTEM on 05-08-2023 Albumin [Mass/Vol] 3.9 g/dL Normal 3.3 - 5.0 gm/dL Remisol Chem Albumin/Globulin [Mass ratio] 1.2 {ratio} Normal 1.1 - 2.2 [facility] Alk Phos 82 [iU]/d Normal 21 - 98 Int._Unit/L Remisol Chem ALT 63 [iU]/d High 6 - 46 Int._Unit/L Rem[facility] Chem Anion gap [Moles/Vol] 12 mmol/L Normal 6 - 16 mEq/L R emisol Chem AST 36 [iU]/d Normal 5 - 43 Int._Unit/L Rem[facility] Bili Direct 0.1 mg/dL Normal 0.0 - 0.4 mg/dL [facility] Bili Indirect 0.2 mg/dL Normal 0.1 - 0.9 mg/dL [facility] Bili Total 0.3 mg/dL Normal 0.0 - 1.1 mg/dL [facility] Calcium [Mass/Vol] 9.1 mg/dL Normal 8.9 - 11. 1 mg/dL [facility] Chloride [Moles/Vol] 107 mmol/L Normal 101 - 1 11 mmol/L [facility] CO2 [Moles/Vol] 26 mmol/L Normal 21 - 31 mmol/L [facility] Creatinine [Mass/Vol] 0.7 mg/dL Normal 0.5 - 1.3 mg/dL [facility] eGFR 123 mL/min/1.73 m2 Normal >=59mL/mi n/1 .73 m2 [facility] Globulin (S) [Mass/Vol] 3.2 g/dL Normal 1.4 - 4.0 gm/dL [facility] Glucose [Mass/Vol] 112 mg/dL Normal 55 - 199 mg/dL Remisol Chem Lipase Lvl 19 unit/L Normal 13 - 58 unit/L Remisol Chem Potassium [Moles/Vol] 3.7 mmol/L Normal 3.5 - 5.3 mmol/L Remisol Chem Protein [Mass/Vol] 7.1 g/dL Normal 6.0 - 7.8 gm/dL Remisol Chem Sodium [Moles/Vol] 141 mmol/L Normal 135 - 145 mmol/L Remisol Chem Urea nitrogen [Mass/Vol] 7 mg/dL Normal 5 - 21 mg/dL Remisol Chem Urea nitrogen/Creatinine [Mass ratio] 10 mg/mg Normal 10 - 20 Remisol Chem Consent for Treatmenton 04-20 Consent for Treatment [id number] #1.00TIFF Normal [facility] HEMATOLOGYOrdered By: Donte Kerr on 05-08-2023 Anisocytosis Ql (Bld) PRESENT Invalid Interpretation Code Remisol Heme Hypochromasia PRESENT Invalid Interpretation Code Remisol Heme Microcyte PRESENT Invalid Interpretation Code Remisol Heme RBC morphology finding Nom (Bld) SEE MORPHOLOGY Invalid Interpretation Code Remisol Heme HEMATOLOGYOrdered By: SYSTEM SYSTEM on 05-08-2023 Basophil Absolute 0.0 E9/L Normal 0.0 - 0.2 E9/L Remisol Heme Basophils/100 WBC (Bld) 0.1 % Normal 0.0 - 2.0 % Remisol Heme Eos Absolute 0.0 E9/L Normal 0.0 - 0.5 E9/L Remisol Heme Eosinophils/100 WBC (Bld) 0.2 % Normal 0.0 - 8.0 % Remisol Heme Erythrocyte distribution width (RBC) [Ratio] 16.6 % High 10.9 - 14.2 % Remisol Heme Hematocrit (Bld) [Volume fraction] 32.0 % Low 34.0 - 46.0 % Remisol Heme Hemoglobin (Bld) [Mass/Vol] 9.9 g/dL Low 12.0 - 16.0 gm/dL Remisol Heme Lymph Absolute 1.3 E9/L Normal 1.0 - 4.0 E9/L Remisol Heme Lymphocytes/100 WBC (Bld) 16.1 % Normal 14.0 - 50.0 % Remisol Heme MCH (RBC) [Entitic mass] 22.8 pg Low 27.0 - 34.0 pg Remisol Heme MCHC (RBC) [Mass/Vol] 31.4 g/dL Normal 31.4 - 36.0 gm/dL Remisol Heme MCV (RBC) [Entitic vol] 72.7 fL Low 80.0 - 100.0 fL Remisol Heme [place] Absolute 0.6 E9/L Normal 0.2 - 1.0 E9/L Remisol Heme Monocytes/100 WBC (Bld) 6.8 % Normal 4.0 - 14.0 % Remisol Heme Neutro Absolute 6.2 E9/L Normal 2.0 - 7.5 E9/L Remisol Heme Neutro Auto 76.8 % High 36.0 - 75.0 % Remisol Heme Platelet 247.0 E9/L Normal 150.0 - 500.0 E9/L Remisol Heme Platelet mean volume (Bld) [Entitic vol] 8.8 fL Normal 6.4 - 10.8 fL Remisol Heme RBC 4.3 E12/L Normal 4.3 - 5.9 E12/L Remisol Heme WBC 8.1 E9/L Normal 4.0 - 11.0 E9/L Remisol Heme SEROLOGYOrdered By: Donte verduzco on 05-08-2023 HCG.beta subunit (U) [Moles/Vol] Negative Normal [facility] Man Sero U BetaHcg Qualon 05-08-2023 HCG.beta subunit (U) [Moles/Vol] Negative Normal [facility] Comment on above: Performed By: #### 2 [id number], [id number] ####[facility] [address] [place] [address] UA With Cult Reflexon 2023 Bilirubin Ql (U) Negative Normal Negative [facility] Comment on above: Performed By: #### 2 [id number], [id number] ####[facility] [address] [place] [address] Clarity (U) CLEAR Normal Clear [facility] Comment on above: Performed By: #### 2 [id number], [id number] ####[facility] [address] [place] [address] Color (U) YELLOW Normal Yellow [facility] Comment on above: Performed By: #### 2 [id number], [id number] ####[facility] [address] [place] [address] Epithelial cells.squamous LM.HPF (Urine sed) [#/Area] 0-2 Normal 0-2 [facility] Comment on above: Performed By: #### 2 [id number], [id number] ####[facility] [address] [place] [address] Glucose Test strip (U) [Mass/Vol] Negative Normal Negative [facility] Comment on above: Performed By: #### 2 [id number], [id number] ####[facility] [address] [place] [address] Hemoglobin Ql (U) Negative Normal Negative [facility] Comment on above: Performed By: #### 2 [id number], [id number] ####[facility] [address] [place] [address] Ketones (U) [Mass/Vol] Negative Normal Negative [facility] Comment on above: Performed By: #### 2 [id number], [id number] ####[facility] [address] [place] [address] [place].plasma/[place]. RBC (Bld) [Mass ratio] 0-3 Normal 0-[address] [facility] Comment on above: Performed By: #### 2 [id number], [id number] ####[address] [address] Nitrite Ql (U) Negative Normal Negative [facility] Comment on above: Performed By: #### 2 [id number], [id number] ####[address] [address] pH (U) 8.5 [pH] Invalid Interpretation Code 5.0-9.0 [facility] Comment on above: Performed By: #### 2 [id number], [id number] ####[address] [address] Protein (U) [Mass/Vol] Negative Normal Negative [facility] Comment on above: Performed By: #### 2 [id number], [id number] ####[address] [address] Specific gravity (U) [Rel density] 1.020 Invalid Interpretation Code 1.005-1.030 [facility] Comment on above: Performed By: #### 2 [id number], [id number] ####[address] [address] Type of Urine collection method Clean Catch Normal [facility] Comment on above: Performed By: #### 2 [id number], [id number] ####[address] [address] Urobilinogen Qn (U) 0.2 {Calderon'U}/dL Normal 0.0-1.0 [facility] Comment on above: Performed By: #### 2 [id number], [id number] ####[facility] [address] [place] [address] WBC Auto Ql (U) Negative Normal Negative [facility] Comment on above: Performed By: #### 2 [id number], [id number] ####[facility] [address] [place] [address] WBC LM.HPF (Urine sed) [#/Area] 0-5 Normal 0-5 [facility] Comment on above: Performed By: #### 2 [id number], [id number] ####[facility] [address] [place] [address] URINALYSISOrdered By: Donte Kerr on 05-08-2023 Bilirubin Ql (U) Negative (05/08/23 11:23 PM) Normal Negative [facility] UA Auto SS Clarity (U) Clear (05/08/23 11:23 PM) Normal Clear [facility] UA Auto SS Color (U) Yellow (05/08/23 11:23 PM) Normal Yellow [facility] UA Auto SS Epithelial cells.squamous LM.HPF (Urine sed) [#/Area] 0-2 /HPF Normal 0-2/HPF [facility] UA Aut o SS Glucose Test strip (U) [Mass/Vol] Negative (05/08/23 11:23 PM) Normal Negative [facility] UA Auto SS Hemoglobin Ql (U) Negative (05/08/23 11:23 PM) Normal Negative [facility] UA Auto SS Ketones (U) [Mass/Vol] Negative (05/08/23 11:23 PM) Normal Negative [facility] UA Auto SS [place].plasma/[place]. RBC (Bld) [Mass ratio] 0-3 /HPF Normal 0-3/HPF [facility] UA A uto SS Nitrite Ql (U) Negative (05/08/23 11:23 PM) Normal Negative [facility] UA Auto SS pH (U) 8.5 *NA* (05/08/23 11:23 PM) Invalid Interpretation Code 5.0 - 9.0 [facility] UA Auto SS Protein (U) [Mass/Vol] Negative (05/08/23 11:23 PM) Normal Negative [facility] UA Auto SS Specific gravity (U) [Rel density] 1.020 *NA* (05/08/23 11:23 PM) Invalid Interpretation Code 1.005 - 1.030 [facility] UA Auto SS UA Spec Desc Clean Catch (05/08/23 11:23 PM) Normal [facility] UA Auto SS Urobilinogen Qn (U) 0.9849128 {Calderon'U}/dL Normal 0.0 - 1.0 EU/dL [facility] UA Auto SS WBC Auto Ql (U) Negative (05/08/23 11:23 PM) Normal Negative [facility] UA Auto SS WBC LM.HPF (Urine sed) [#/Area] 0-5 /HPF Normal 0-5/HPF [facility] UA Auto SS Consent for Treatmenton 04-19 Consent for Treatment [id number] #1.00TIFF Normal [facility] Discharge Instructionson Discharge Instructions [id number] 6#1.00TIFF Normal [facility] ED Clinical Summaryon 2023 ED Clinical Summary [place] [id number] ED Clinical Summary Person Information Name: FABRIZIO CARBALLO [facility] Age: 22 Years : 2000 Sex: Female Language: Burundian PCP: Nicolás MSN, HSE COORDINATOR-WELL DRILL OPERATOR, Jewell Alcala Marital Status: Single Visit Id: [...] 05/02/2023 09:22:45 05/02/2023 09:22:45 05/02/2023 09:22:45 ADDRESS: [address] [place] [phone] PHYS DOC NOTES: MEDICAL INFORMATION: Prescriptions Given: New Medications [employer] [facility]02, [address] [facility] [place] [place] [id number], [phone] brompheniramine/dext romethorphan/PSE (Bromfed DM oral syrup) 5 [...] EDUCATION INFORMATION: Instructions: Upper Respiratory Infection, Adult, Paci-nz-Bkzh Follow up: With: Address: When: Jewell Monzon [address] [place] [address] [place] [phone] Business (1) In 3 days 05/05/2023 Comments: Follow-up with your primary care provider in 3 to 5 days. If symptoms worsen, do not improve, or new symptoms arise please report back to emergency department for further evaluation. DIAGNOSIS: Acute URI Normal [facility] ED Note-Physicianon 05-02-19 ED Note-Physician Basic Information Time Seen: Luciano CROSS, Carlos Nichole 05/02/2023 08:19 Chief Complaint sore throat, productive [...] Directed Follow-up With When Contact Information Jewell Rizviant In 3 days 05/05/[address] [place] [address] [phone] Business (1) Additional Instructions: Follow-up with your primary care provider in 3 to 5 days. If symptoms worsen, do not improve, or new symptoms arise please report back to emergency department for further evaluation. Patient Education Upper Respiratory Infection, Adult, Tgoh-am-Bmoo Attestation Patient seen and evaluated by the physician recruitment assistant. Attending physician was present in the emergency department and supervised care. This visit was perfo (more content not included)... Normal [facility] Comment on above: Result Comment: Elec tronically Signed By: Carlos Wolf PA-C\.br\Date and Time Signed: 05/02/23 09:22 EST\.br\Electronically Co-Signed By: Adolph Aleman M.D.\.br\Date and Time Co-Signed: 05/02/23 10:33 EST ED [...] to help relieve symptoms, such as: ? Aibs-pdh-jxxihbm cold medicines. ? Medicines to reduce coughing [...] other clear broths. General instructions ? Take ewix-ypg-mvzrdat and prescription medicines only as told by [...] cannot use soap and water, use hand horse race starter. ? Avoid touching your mouth, face, eyes, [...] get better within 7?10 days. ? Take oujv-sgz-vymbnfp and prescription medicines only as told by your doctor. This information is not intended to replace advice given to you by your health care (more content not included)... Normal [facility] ED Patient Summaryon 024 ED Patient Summary [place] [id number] Patient Discharge Instructions Person Information Name: FABRIZIO CARBALLO Age: 22 Years Arrival Date: 05/02/2023 08:16:05 Discharge Diagnosis: Acute URI Primary Care Physician: Nicolás MSN, HSE COORDINATOR-MUSTAPHA, Jewell Alcala Provider Information Primary Provider: Adolph Aleman M.D. Advanced Gang Worker:None The exam and treatment you received in the Emergency Department were for an urgent problem and are not intended as complete care. It is important that you follow up with a doctor, nurse practitioner, or physician?s recruitment assistant for ongoing care. If your symptoms become worse or you do not improve as expected and you are unable to reach your usual health care provider, you should return to the Emergency Department. We are available 24 hours a day. FABRIZIO CARBALLO has been given the following list of patient education materials, prescriptions and follow-up instructions: Follow-up Instructions: With: Address: When: Jewell Monzon [address] [place] [address] [place], [place] [phone] Whyd (1) In 3 days 05/05/2023 Comments: Follow-up [...] Patient Education Materials: Upper Respiratory Infection, Adult, Stai-jw-Bofw A MESSAGE TO ALL PATIENTS REGARDING OPIOIDS PRESCRIPTION OPIOIDS: WHAT YOU NEED TO KNOW Prescription opioids can be used to help relieve geeekntp-ve-iasvek pain and are often prescribed following a [...] opioids a (more content not included)... Normal [facility] Grp A Strp PCRon 05-02-2023 Grp A Strp Intrl Ctrl Pass Normal Fis [facility] Comment on above: Order Comment: Order Added on by Discern Rule. Performed By: #### 1 [id number], [id number], [id number], [id number] #### [facility] [address] [place] [address] S. pyogenes DNA ELYSIA+probe Ql (Throat) Negative Normal [facility] Comment on above: Order Comment: Order Added on by Discern Rule. Result Comment: Test ing performed using DNA amplification. Performed By: #### 1 [id number], [id number], [id number], [id number] #### [facility] [address] [place] [address] Influenza A&B Agon Influenzae A Ag Negative Normal Negative [facility] Comment on above: Performed By: #### 1 [id number], [id number], [id number], [id number] #### [facility] [address] [place] [address] Influenzae B Ag Negative Normal Negative [facility] Comment on above: Result Comment: Test sensitivity and specificity vary for age group, specimen type, antigen types, and prevalence of disease. Test results must be evaluated in conjunction with other clinical data available to the physician. Individuals who received nasally administered Influenza A vaccine may have positive test results up to 3 days after vaccination. Performed By: #### 1 [id number], [id number], [id number], [id number] #### [facility] [address] [place] [address] MICRO OTHER TESTSOrdered By: Mary Guerrero on 05-02-2023 Influenzae A Ag Negative (05/02/23 8:28 AM) Normal Negative [facility] Man Sero Influenzae B Ag Negative 1 (05/02/23 8:28 AM) Normal Negative [facility] Man Sero Comment on above: Interpretive Data: [...] NEG Ctl Pass (05/02/23 8:28 AM) Normal FT Man Sero Rapid COV Int POS Ctl Pass (05/02/23 8:28 AM) Normal FT Man Sero S. pyogenes Ag IA.rapid Ql (Throat) Negative (05/02/23 8:28 AM) Normal Negative [facility] Man Sero SARS-CoV+SARS-CoV-2 (COVID-19) Ag IA.rapid Ql (Resp) Not Detected 2 (05/02/23 8:28 AM) Normal Not Detected [facility] Man Sero Comment on above: Interpretive Data: T he RampedMediaitor System for Rapid Detection of SARS-CoV-2 is [...] Rapid COV Int NEG Ctl Pass Normal Fis [facility] Comment on above: Performed By: #### 1 [id number], [id number], [id number], [id number] #### [facility] [address] [place] [address] Rapid COV Int POS Ctl Pass Normal Fis [facility] Comment on above: Performed By: #### 1 [id number], [id number], [id number], [id number] #### [facility] [address] [place] [address] SARS-CoV+SARS-CoV-2 (COVID-19) Ag IA.rapid Ql (Resp) Not detected Normal Not Detected [facility] Comment on above: Result Comment: The Agribots? System for Rapid Detection of SARS-CoV-2 is [...] terminated or revoked sooner. Performed By: #### 1 [id number], [id number], [id number], [id number] #### [facility] [address] [place] [address] Rapid Strep w/rfxon 05-02-19 S. pyogenes Ag IA.rapid Ql (Throat) Negative Normal Negative [facility] Comment on above: Performed By: #### 1 [id number], [id number], [id number], [id number] #### [facility] [address] [place] [address] XR Chest 2 Viewson XR Chest 2 Views Exam Date/Time: 05/02/2023 [...] mGy = . DAP = . Normal [facility] ED Note-Physicianon 04-24-19 ED Note-Physician Basic Information [...] and Complexity of Problems Differential Diagnosis: [] [facility] Data External documents reviewed: [] My EKG [...] Jewell Monzon In 3 days 04/26/[address] [place] [address] [phone] [facility] (1) Additional Instructions: Follow-up with your primary care provider in 3 to 5 days. If symptoms worsen, do not improve, or new symptoms arise please report back to emergency department for further evaluation. Patient Education Back Injury Prevention, Hjqf-yb-Lrfj Back Exercises, Aoeh-fw-Hbpr Attestation Patient seen and evaluated by the physician recruitment assistant. Attending physician was present in the emergency department and supervised care. This visit was performed by both the physician and an APC. I performed all aspects of the MDM as documented. This report was transcribed using voice recognition software. Every effort was made to ensure accuracy, however, inadvertently computerized custody officer mistakes may be present. Appropriate healthcare PPE [...] Abnormal c (more content not included)... Normal [facility] Comment on above: Result Comment: Elec tronically Signed By: Carlos Wolf PA-C.br\Date and Time Signed: 04/23/23 21:36 EST\.br\Electronically Co-Signed [...] MD Transcribed by: ANCELMO Technologist: SIMONE Lay [facility] CT Spine Cervical w/o Contra ston 04-23-2023 [...] MD Transcribed by: ANCELMO Technologist: SIMONE Lay [facility] Consent for Treatmenton Consent for Treatment [id number] #1.00TIFF Normal [facility] Discharge Instructionson Discharge Instructions [id number]#1.00TIFF Normal [facility] ED Clinical Summaryon 2023 ED Clinical Summary [place] [id number] ED Clinical Summary Person Information Name: FABRIZIO CARBALLO [facility] Age: 22 Years : 2000 Sex: Female Language: Burundian PCP: Nicolás MSN, HSE COORDINATOR-WELL DRILL OPERATOR, Jewell Alcala Marital Status: Single Visit Id: [...] 04/23/2023 20:12:55 04/23/2023 20:12:55 04/23/2023 20:12:55 ADDRESS: [address] [place] [phone] PHYS DOC NOTES: MEDICAL INFORMATION: Prescriptions Given: [...] PATIENT EDUCATION INFORMATION: Instructions: Back Injury Prevention, Tvri-dz-Pdek; Back Exercises, Ixnv-tw-Lkcz Follow up: With: Address: When: Jewell Monzon [address] [place] [address] [place] [phone] Business (1) In 3 days 04/26/2023 Comments: Follow-up with your primary care provider in 3 to 5 days. If symptoms worsen, do not improve, or new symptoms arise please report back to emergency department for further evaluation. DIAGNOSIS: Back spasm; Fall Normal [facility] ED Patient Education Noteon 04-23-2023 ED Patient [...] the object as you can. Do not diamond picker a heavy object that is far from [...] objects on shelves at waist level. Put still pump operator objects on lower or higher shelves. ? Find ways to lower your stress (more content not included)... Normal [facility] ED Patient Summaryon 024 ED Patient Summary [place] [id number] Patient Discharge Instructions Person Information Name: FABRIZIO CARBALLO Age: 22 Years Arrival Date: 04/23/2023 19:11:15 Discharge Diagnosis: Back spasm; Fall Primary Care Physician: Nicolás MSN, HSE COORDINATOR-WELL DRILL OPERATOR, Jewell Alcala Provider Information Primary Provider: Andrea Faustin DO Advanced Gang Worker:None The exam and treatment you received in the Emergency Department were for an urgent problem and are not intended as complete care. It is important that you follow up with a doctor, nurse practitioner, or physician?s recruitment assistant for ongoing care. If your symptoms become worse or you do not improve as expected and you are unable to reach your usual health care provider, you should return to the Emergency Department. We are available 24 hours a day. FABRIZIO CARBALLO has been given the following list of patient education materials, prescriptions and follow-up instructions: Follow-up Instructions: With: Address: When: Jewell Monzon [address] [place] [address] [address] [place] [phone] Whyd (1) In 3 days 04/26/2023 Comments: Follow-up [...] provider. Patient Education Materials: Back Injury Prevention, Mkyy-me-Wgak; Back Exercises, Mwcp-de-Bfow A MESSAGE TO ALL PATIENTS REGARDING OPIOIDS PRESCRIPTION OPIOIDS: WHAT YOU NEED TO KNOW Prescription opioids can be used to help relieve rgmgsvuy-pb-hwuebp pain and are often prescribed following a [...] about t (more content not included)... Normal [facility] Patient Educationon 04-03-19 Patient Education Mental and Behavioral Health Managing [...] pray, or go to a place of bahai. ? Do some deep breathing. To do [...] or salt (sodium). General instructions ? Take wexo-wjn-sglowwk and prescription medicines only as told by [...] www.[facility].ne (more content not included)... Normal [facility] Patient Educationon 03-26-19 Patient Education Neurology Chronic Migraine Headache A [...] these instructions at home: Medicines ? Take rxbj-pan-okxqfgr and prescription medicines only as told by [...] and dr (more content not included)... Normal [facility] Discharge Instructionson Discharge Instructions [id number] #1.00TIFF Normal [facility] ED Clinical Summaryon 2022 ED Clinical Summary [place] [id number] ED Clinical Summary Person Information Name: FABRIZIO CARBALLO [facility] Age: 22 Years : 2000 Sex: Female Language: Burundian PCP: Nicolás MINA, HSE COORDINATOR-WELL DRILL OPERATORJewell Marital Status: Single Visit Id: Visit Reason: [...] 02/03/2023 00:33:08 02/03/2023 00:33:08 02/03/2023 00:33:08 ADDRESS: [address] [place] [phone] PHYS DOC NOTES: MEDICAL INFORMATION: Prescriptions Given: [...] Depression, Adult Follow up: With: Address: When: [facility] In 3 days 02/06/2023 Comments: Please follow-up with your primary care doctor in the [facility] for further evaluation and management. Please return to the ED for any new or worsening symptoms. With: Address: When: Jewell Monzon [address] [place] [phone] Business (1) In 3 days DIAGNOSIS: Depression Normal [facility] ED Note-Nursingon 02-03-2023 ED Note-Nursing Patient now done talking on the phone with Estrella from [facility]. Estrella has a safety plan set up for patient to reference when in need and will follow up with [facility] on Sunday morning. Normal [facility] ED Note-Physicianon 02-04-20 ED Note-Physician Basic Information Time Seen: Earline Bond DO 02/02/2023 21:07 Chief Complaint Pt states has [...] and Complexity of Problems Differential Diagnosis: [] [facility] Data External documents reviewed: [] My EKG [...] cleared for psychiatric evaluation. Patient talked with [facility] they were able to arrange outpatient resources [...] eGFR Ethanol Level Morphology Rapid COVID Antigen ([facility]) U Beta Hcg Qual Disposition Plan Discharge Prescription List Prescriptions No active prescription medications Follow-up With When Contact Information [facility] In 3 days 02/06/2023 EST Additional Instructions: Please follow-up with your primary care doctor in the [facility] for further evaluation and management. Please return to the ED for any new or worsening symptoms. Jewell Monzon In 3 days [address] [place] [phone] [facility] (1) Additional Instructions: Patient Education Managing Depression, [...] refills, N (more content not included)... Normal [facility] Comment on above: Result Comment: Elec ramyally Signed By: Earline Bond DO.melodie\Date and Time Signed: 02/03/23 01:00 [facility] ED Patient Education Noteon 02-03-2023 ED Patient [...] pray, or go to a place of bahai. ? Do some deep breathing. To do [...] or salt (sodium). General instructions ? Take axrn-ifg-bmmpvqv and prescription medicines only as told by [...] www.[facility]health[facility].ne (more content not included)... Normal [facility] ED Patient Summaryon 023 ED Patient Summary [address] [address] Patient Discharge Instructions Person Information Name: FABRIZIO CARBALLO Age: 22 Years Arrival Date: 02/02/2023 20:50:59 Discharge Diagnosis: Depression Primary Care Physician: Nicolás MINA, HSE COORDINATOR-WELL DRILL OPERATOR, Jewell [place]cal[place] Provider Information Primary Provider: Earline Bond DO Advanced Gang Worker:None The exam and treatment you received in the Emergency Department were for an urgent problem and are not intended as complete care. It is important that you follow up with a doctor, nurse practitioner, or physician?s recruitment assistant for ongoing care. If your symptoms become worse or you do not improve as expected and you are unable to reach your usual health care provider, you should return to the Emergency Department. We are available 24 hours a day. FABRIZIO CARBALLO has been given the following list of patient education materials, prescriptions and follow-up instructions: Follow-up Instructions: With: Address: When: [facility] In 3 days 02/06/2023 Comments: Please follow-up with your primary care doctor in the P for further evaluation and management. Please return to the ED for any new or worsening symptoms. With: Address: When: Jewell Monzno [address] [place] [phone] [facility] (1) In 3 days In the event that this physician does not participate in your insurance network, please consult with your insurance company to find a nearby participating provider. Patient Education Materials: Managing Depression, Adult A MESSAGE TO ALL PATIENTS REGARDING OPIOIDS PRESCRIPTION OPIOIDS: WHAT YOU NEED TO KNOW Prescription opioids can be used to help relieve iavdtzop-lg-ntnino pain and are often prescribed following a [...] about t (more content not included)... Normal [facility] Outside Recordson 02-03-2023 Outside Records [id number] #1.00TIFF Normal [facility] Auto Diffon 02-02-2023 Basophils/100 WBC (Bld) 0.6 % Normal 0.0-2.0 F [facility] Comment on above: Order Comment: Order Added by Discern Expert. Performed By: #### 2 528617, 31581456, 8239637 #### [facility] [address] [place] [address] Basophils/Leukocytes Auto (Bld) [Pure # fraction] 0.0 E9/L Normal 0.0-0.2 [facility] Comment on above: Order Comment: Order Added by Discern Expert. Performed By: #### 2 190300, 29290622, 3757900 #### [facility] [address] [place] [address] Eosinophils/100 WBC (Bld) 3.0 % Normal 0.0-8.0 [facility] Comment on above: Order Comment: Order Added by Discern Expert. Performed By: #### 2 040703, 99144543, 9736808 #### [facility] [address] [place] [address] Eosinophils/Leukocytes Auto (Bld) [Pure # fraction] 0.3 E9/L Normal 0.0-0.5 [facility] Comment on above: Order Comment: Order Added by Discern Expert. Performed By: #### 2 364706, 66612387, 1821123 #### [facility] [address] [place] [address] Lymphocytes/100 WBC (Bld) 33.8 % Normal 14.0-50.0 [facility] Comment on above: Order Comment: Order Added by Discern Expert. Performed By: #### 2 943797, 83475900, 0986751 #### [facility] [address] [place] [address] Lymphocytes/Leukocytes Auto (Bld) [Pure # fraction] 2.9 E9/L Normal 1.0-4.0 [facility] Comment on above: Order Comment: Order Added by Discern Expert. Performed By: #### 2 887278, 72768183, 1599446 #### [facility] [address] [place] [address] Monocytes/100 WBC (Bld) 8.3 % Normal 4.0-14.0 [facility] Comment on above: Order Comment: Order Added by Sonia Expert. Performed By: #### 2 725116, 82728255, 9799912 #### [facility] [address] [place] [address] Monocytes/Leukocytes Auto (Bld) [Pure # fraction] 0.7 E9/L Normal 0.2-1.0 [facility] Comment on above: Order Comment: Order Added by Sonia Expert. Performed By: #### 2 084460, 18959738, 7965043 #### [facility] [address] [place] [address] Neutrophils/100 WBC (Bld) 54.3 % Normal 36.0-75.0 [facility] Comment on above: Order Comment: Order Added by Discern Expert. Performed By: #### 2 276271, 91757656, 7300000 #### [facility] [address] [place] [address] Neutrophils/Leukocytes Auto (Bld) [Pure # fraction] 4.7 E9/L Normal 2.0-7.5 [facility] Comment on above: Order Comment: Order Added by Sonia Expert. Performed By: #### 2 404400, 19383149, 9389283 #### [facility] [address] [place] [address] CBC w/ Auto Diffon Erythrocyte distribution width (RBC) [Ratio] 16.5 % High 10.9-14.2 [facility] Comment on above: Performed By: #### 2 685332, 30509436, 3604736, 45114296, 6065460 ####[address] [place] [address] Hematocrit (Bld) [Volume fraction] 31.2 % Low 34.0-46.0 [facility] Comment on above: Performed By: #### 2 755363, 07850165, 9131025, 97265974, 6754959 ####[address] [address] Hemoglobin (Bld) [Mass/Vol] 9.8 g/dL Low 12.0-16.0 [facility] Comment on above: Performed By: #### 2 256127, 90119077, 6072021, 03472550, 4189737 ####[address] [address] MCH (RBC) [Entitic mass] 23.3 pg Low 27.0-34.0 [facility] Comment on above: Performed By: #### 2 233666, 12481606, 6358959, 64508626, 5708333 ####[address] [address] MCHC (RBC) [Mass/Vol] 31.4 g/dL Normal 31.4-36.0 [facility] Comment on above: Performed By: #### 2 034085, 91540991, 7492511, 31231968, 2006242 ####[address] [address] MCV (RBC) [Entitic vol] 74.3 fL Low 80.0-100.0 F [facility] Comment on above: Performed By: #### 2 700114, 83089413, 3003979, 61335140, 5048388 ####[address] [address] Platelet mean volume (Bld) [Entitic vol] 8.0 fL Normal 6.4-10.8 [facility] Comment on above: Performed By: #### 2 454916, 40580345, 7741457, 15696633, 2805821 ####[address] [address] Platelets (Bld) [#/Vol] 361.0 E9/L Normal 150.0-500.0 [facility] Comment on above: Performed By: #### 2 535960, 96153721, 5790530, 33325746, 2427701 ####[address] [address] RBC (Bld) [#/Vol] 4.2 E12/L Low 4.3-5.9 [facility] Comment on above: Performed By: #### 2 466600, 22217279, 5245541, 44044750, 9615753 ####[address] [address] WBC corrected for nucl RBC Auto (Bld) [#/Vol] 8.7 E9/L Normal 4.0-11.[address] [facility] Comment on above: Performed By: #### 2 996525, 05745513, 0042491, 72839482, 2127169 ####[address] [address] CHEMISTRYOrdered By: SYSTEM SYSTEM on 02-02-2023 Amphetamines [...] 24 [iU]/d Normal 5 - 43 Int._Unit/L [facility] Bilirubin [Mass/Vol] 0.1 mg/dL Normal 0.0 - 1 .1 mg/dL [facility] Calcium [Mass/Vol] 9.8 mg/dL Normal 8.9 - 11. 1 mg/dL [facility] Chloride [Moles/Vol] 108 mmol/L Normal 101 - 1 11 mmol/L [facility] CO2 [Moles/Vol] 26 mmol/L Normal 21 - 31 mmol/L [facility] Creatinine [Mass/Vol] 0.7 mg/dL Normal 0.5 - 1.3 mg/dL [facility] Ethanol [Mass/Vol] mg/dL Normal <=7mg/dL [facility] R emisol GFR/1.73 sq M.predicted among non-blacks MDRD (S/P/Bld) [Vol rate/Area] 124 mL/min/1.73 m2 Normal >=59mL/min/1 .73 m2 [facility] Chem S Comment on above: Interpretive Data: C hronic kidney disease could be indicated at eGFR's of less than 60 mL/min/1.73m2. Kidney failure is indicated at less than 15 mL/min/1.73m2. Globulin (S) [Mass/Vol] 3.6 g/dL Normal 1.4 - 4.0 gm/dL [facility] Remisol Glucose [Mass/Vol] 112 mg/dL Normal 55 - 199 mg/dL [facility] Remisol Comment on above: Interpretive Data: I f this glucose result represents a fasting glucose, interpretation should refer to the following reference range: 55-99 mg/dL Potassium [Moles/Vol] 3.4 mmol/L Low 3.5 - 5.3 mmol/L [facility] Remisol Protein [Mass/Vol] 7.6 g/dL Normal 6.0 - 7.8 gm/dL [facility] Sodium [Moles/Vol] 141 mmol/L Normal 135 - 145 mmol/L [facility] Urea nitrogen [Mass/Vol] 14 mg/dL Normal 5 - 21 mg/dL [facility] Remisol Urea nitrogen/Creatinine [Mass ratio] 20 mg/mg Normal 10 - 20 [facility] Remisol CMPon 02-02-2023 Albumin [Mass/Vol] 4.0 g/dL Normal 3.3-5.0 [facility] Comment on above: Performed By: #### 2 854349, 08087440, 3627323, 71052425, 8756497 ####[facility] [address] [place] [address] Albumin/Globulin (S) [Mass conc ratio] 1.1 Normal 1.1-2.2 [facility] Comment on above: Performed By: #### 2 870152, 43235610, 6292737, 86875016, 3758955 ####[facility] [address] [place] [address] ALP [Catalytic activity/Vol] 65 Int._Unit/L Normal 21-98 [facility] Comment on above: Performed By: #### 2 035607, 46698278, 1360231, 21112996, 2081492 ####[facility] [address] [place] [address] ALT No additional P-5'-P [Catalytic activity/Vol] 26 Int._Unit/L Normal 6-46 [facility] Comment on above: Performed By: #### 2 780930, 00710294, 4730204, 10024634, 2906587 ####[facility] [address] [place] [address] AST [Catalytic activity/Vol] 24 Int._Unit/L Normal 5-43 [facility] Comment on above: Performed By: #### 2 332921, 10359141, 7333535, 27340182, 4422715 ####[facility] [address] [place] [address] Bilirubin [Mass/Vol] 0.1 mg/dL Normal 0.0-1.1 [facility] Comment on above: Performed By: #### 2 094128, 00115155, 9917300, 96792671, 7336221 ####[facility] [address] [place] [address] Creatinine [Mass/Vol] 0.7 mg/dL Normal 0.5-1.3 [facility] Comment on above: Performed By: #### 2 985174, 44931944, 8987223, 27867524, 1594751 ####[facility] [address] [place] [address] Globulin (S) [Mass/Vol] 3.6 g/dL Normal 1.4-4.0 F [facility] Comment on above: Performed By: #### 2 929933, 29536073, 2095053, 10290352, 3361293 ####[facility] [address] [place] [address] Protein [Mass/Vol] 7.6 g/dL Normal 6.0-7.8 [facility] Comment on above: Performed By: #### 2 868882, 72093538, 4925271, 12510420, 1205993 ####[facility] [address] [place] [address] Urea nitrogen [Mass/Vol] 14 mg/dL Normal 5-21 [facility] Comment on above: Performed By: #### 2 789813, 33252390, 7013972, 12574754, 1083680 ####[facility] [address] [place] [address] Urea nitrogen/Creatinine [Mass ratio] 20 No Units Normal 10-20 [facility] Comment on above: Performed By: #### 2 590785, 13187111, 8124812, 75792295, 9119145 ####[facility] [address] [place] [address] Anion gap [Moles/Vol] 10 mmol/L Normal 6-16 [facility] Comment on above: Performed By: #### 2 061433, 60102412, 6173323, 98382736, 6999685 ####[facility] [address] [place] [address] Calcium [Mass/Vol] 9.8 mg/dL Normal 8.9-11.1 [facility] Comment on above: Performed By: #### 2 032143, 88910448, 7747083, 51941890, 1860539 ####[facility] [address] [place] [address] Chloride [Moles/Vol] 108 mmol/L Normal 101-111 [facility] Comment on above: Performed By: #### 2 617954, 62275442, 3686555, 33752222, 7313272 ####[facility] [address] [place] [address] CO2 [Moles/Vol] 26 mmol/L Normal 21-[address] [facility] Comment on above: Performed By: #### 2 971316, 94420561, 3891674, 02541177, 1950155 ####[facility] [address] [place] [address] Glucose [Mass/Vol] 112 mg/dL Normal 55-199 [facility] Comment on above: Result Comment: If t his glucose result represents a fasting glucose, interpretation should refer to the following reference range: 55-99 mg/dL Performed By: #### 2 752497, 50675063, 2016189, 05595612, 3557286 ####[facility] [address] [place] [address] Potassium [Moles/Vol] 3.4 mmol/L Low 3.5-5.3 [facility] Comment on above: Performed By: #### 2 444621, 15732832, 5118658, 30788362, 0640364 ####[facility] [address] [place] [address] Sodium [Moles/Vol] 141 mmol/L Normal 135-145 [facility] Comment on above: Performed By: #### 2 339085, 08229736, 2774025, 80737933, 6090376 ####[facility] [address] [place] [address] Consent for Treatmenton 01-17 Consent for Treatment [id number] #1.00TIFF Normal [facility] ED Note-Nursingon 02-02-2023 ED Note-Nursing Patient talking with Estrella from [facility] at this time. Normal [facility] ED Note-Nursing Nurse spoke with Lucie from [facility]. Pt talking on the phone now. Normal [facility] Ethanolon 02-02-2023 Ethanol [Mass/Vol] mg/dL Normal <=7 [facility] Comment on above: Performed By: #### 2 126814 ####[facility] [address] [place] [address] HEMATOLOGYOrdered By: Donte Kerr on 02-02-2023 Anisocytosis Ql (Bld) Present (02/02/23 9:35 PM) Normal [facility] HemeManSS Erythrocyte distribution width (RBC) [Ratio] 16.5 [...] 4.7 E9/L Normal 2.0 - 7.5 E9/L [facility] HemeAutoSS MICRO OTHER TESTSOrdered By: Mary Byrd on 02-02-2023 Rapid COV Int NEG Ctl Pass (02/02/23 9:43 PM) Normal [facility] Man Sero Rapid COV Int POS Ctl Pass (02/02/23 9:43 PM) Normal [facility] Sero SARS-CoV+SARS-CoV-2 (COVID-19) Ag IA.rapid Ql (Resp) Not Detected 10 (02/02/23 9:43 PM) Normal Not Detected [facility] Man Sero Comment on above: Interpretive Data: Ashly bajwa itzbig Veritor System for Rapid Detection of SARS-CoV-2 [...] the authorization is terminated or revoked sooner. Morphon 02-02-2023 Anisocytosis Ql (Bld) Present Normal [facility] Comment on above: Order Comment: Order Added by Discern Expert. Performed By: #### 2 403191, 63514853, 0959334 #### [facility] [address] [place]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 above: Performed By: #### C BC ####[facility] [address] [place], [place] [address]Dr. Lissy Allen LYMPH # 2.2 103/ul Normal 1.2-3.8 [facility] Comment on above: Performed By: #### C BC ####[facility] [address] [place], [place] [address]DrGale Allen Lymphocytes/100 WBC (Bld) 19.5 % Critically low 20.5-60.0 [facility] Comment on above: Performed By: #### C BC ####[facility] [address] [place], [place] [address]Dr. Lissy Allen MANUAL DIFF REQ NO Normal [facility] Comment on above: Performed By: #### C BC ####[facility] [address] [place], [place] [address]Dr. Lissy Allen MCH (RBC) [Entitic mass] 23.0 pg Critically low 26.7-34.0 [facility] Comment on above: Performed By: #### C BC ####[facility] [address] [address]Dr. Lissy Allen MCHC (RBC) [Mass/Vol] 29.7 g/dL Critically low 29.9-35.2 [facility] Comment on above: Performed By: #### C BC ####[facility] [address] [address]Dr. Lissy Allen MCV (RBC) [Entitic vol] 77.5 fL Critically low 81.0-99. 0 [facility] Comment on above: Performed By: #### C BC ####[facility] [address] [place], [place] [address]Dr. Lissy Allen MONO # 0.8 103/ul Normal 0.3-0.8 [facility] Comment on above: Performed By: #### C BC ####[facility] [address] [place], [place] [address]Dr. Lissy Alejandro Monocytes/100 WBC (Bld) 6.8 % Normal 1.7-12.0 [facility] Comment on above: Performed By: #### C BC ####[facility] [address] [place], [place] [address]Dr. Lissy Allen NEUT # 8.2 103/ul Critically high 1.4-6.5 [facility] Comment on above: Performed By: #### C BC ####[facility] [address] [place], [place] [address]Dr. Lissy Alejandro Neutrophils/100 WBC (Bld) 72.6 % Normal 43.0-75.0 [facility] Comment on above: Performed By: #### C BC ####[facility] [address] [place], [place] [address]DrGale Lissy Allen Platelet mean volume (Bld) [Entitic vol] 11.1 fL Normal 9.5-13.5 [facility] Comment on above: Performed By: #### C BC ####[facility] [address] [place], [place] [address]Wl. Lissy Allen PLT 265 103/ul Normal 150-450 [facility] Comment on above: Performed By: #### C BC ####[facility] [address] [address]Dr. Lissy Allen RBC 3.69 106/ul Critically low 4.20-5.40 [facility] Comment on above: Performed By: #### C BC ####[facility] [address] [address]Dr. Lissy Allen WBC 11.2 103/ul Critically high 4.0-11.0 [facility] Comment on above: Performed By: #### C BC ####[facility] [address] [address]Dr. Lissy Allen CREATININEon 03-30-2021 Creatinine [Mass/Vol] 0.60 mg/dL Normal 0.52-1.04 [facility] Comment on above: Performed By: #### A LT, AST, LIPA, CREA, NATALY, ELEC ####[facility] [address] [id number]. Lissy Allen EGFR-AF SAO TOMEAN >60 Normal >=60 [facility] Comment on above: Performed By: #### A LT, AST, LIPA, CREA, NATALY, ELEC ####[facility] [address] [address]Dr. Lissy Allen EGFR-NON AF SAO TOMEAN >60 Normal >=60 [facility] Comment on above: Performed By: #### A LT, AST, LIPA, CREA, NATALY, ELEC ####[facility] [address] [id number]. Lissy Allen DRUG SCREEN RAPID (URINE)on 03-30-2021 AMP Negative Normal NEGATIVE [facility] Comment on above: Performed By: #### D RUGRPD #### [facility] [address] [place], [place] [address] Dr. Lissy Allen BAR Negative Normal NEGATIVE [facility] Comment on above: Performed By: #### D RUGRPD #### [facility] [address] [place] [address] Dr. Lissy Allen BUP Negative Normal NEGATIVE [facility] Comment on above: Performed By: #### D RUGRPD #### [facility] [address] [place] [address] Dr. Lissy Allen BZO Negative Normal NEGATIVE [facility] Comment on above: Performed By: #### D RUGRPD #### [facility] [address] [place] [address] Dr. Lissy Allen DAVID Negative Normal NEGATIVE [facility] Comment on above: Performed By: #### D RUGRPD #### [facility] [address] [place] [address] Dr. Lissy Allen CUT-OFFS SEE BELOW Normal [facility] Comment on above: Result Comment: AMP [...] ng/mL Performed By: #### D RUGRPD #### [facility] [address] [place] [address] Dr. Lissy Allen DRUG CUT HEADER DRUG CLASS TEST SYSTEM CUT-OFF CONCENTRATIONS ARE FOLLOWS: Normal [facility] Comment on above: Performed By: #### D RUGRPD #### [facility] [address] [place] [address] Dr. Lissy Allen mAMP Negative Normal NEGATIVE [facility] Comment on above: Performed By: #### D RUGRPD #### [facility] [address] [place] [address] Dr. Lissy Allen MTD Negative Normal NEGATIVE [facility] Comment on above: Performed By: #### D RUGRPD #### [facility] [address] [address] [address] Lissy Allen OPI Negative Normal NEGATIVE [facility] Comment on above: Performed By: #### D RUGRPD #### [facility] [address] [address] [address] Lissy Allen OXY Negative Normal NEGATIVE [facility] Comment on above: Performed By: #### D RUGRPD #### [facility] [address] [address] [address] Lissy Allen PCP Negative Normal NEGATIVE [facility] Comment on above: Performed By: #### D RUGRPD #### [facility] [address] [address] [address] Lissy Allen PPX Negative Normal NEGATIVE [facility] Comment on above: Performed By: #### D RUGRPD #### [facility] [facility] [address] [address] [address] Lissy Allen TCA Negative Normal NEGATIVE [facility] Comment on above: Performed By: #### D RUGRPD #### [facility] [address] [address] [address] Lissy Allen THC Negative Normal NEGATIVE [facility] Comment on above: Performed By: #### D RUGRPD #### [facility] [address] [address] [address] Lissy Allen ELECTROLYTESon 03-30-2021 Anion gap [Moles/Vol] 12.4 mmol/L Normal [facility] Comment on above: Performed By: #### A LT, AST, LIPA, CREA, NATALY, ELEC ####[facility] [address] [address]Dr. Lissy Allen Chloride [Moles/Vol] 105 mmol/L Normal 98-107 [facility] Comment on above: Performed By: #### A LT, AST, LIPA, CREA, NATALY, ELEC ####[facility] [address] [address]Dr. Lissy Allen CO2 [Moles/Vol] 23.5 mmol/L Normal 22.0-30.0 [facility] Comment on above: Performed By: #### A LT, AST, LIPA, CREA, NATALY, ELEC ####[facility] [address] [address]Dr. Lissy Allen Potassium [Moles/Vol] 3.9 mmol/L Normal 3.4-5.0 [facility] Comment on above: Performed By: #### A LT, AST, LIPA, CREA, NATALY, ELEC ####[facility] [address] [address]Dr. Lissy Allen Sodium [Moles/Vol] 137 mmol/L Normal 137-145 [facility] Comment on above: Performed By: #### A LT, AST, LIPA, CREA, NATALY, ELEC ####[facility] [address] [address]Dr. Lissy Allen LIPASEon 03-30-2021 Lipase [Catalytic activity/Vol] 80.0 U/L Normal 23.0-300.0 [facility] Comment on above: Performed By: #### A LT, AST, LIPA, CREA, NATALY, ELEC ####[facility] [address] [address]Dr. Lissy Allen SGOTon 03-30-2021 AST [Catalytic activity/Vol] 22 U/L Normal 14-36 [facility] Comment on above: Performed By: #### A LT, AST, LIPA, CREA, NATALY, ELEC ####[facility] [address] [address]Dr. Lissy Allen SGPTon 03-30-2021 ALT [Catalytic activity/Vol] 16 U/L Normal 9-52 [facility] Comment on above: Performed By: #### A LT, AST, LIPA, CREA, NATALY, ELEC ####[facility] [address] [address]Dr. Lissy Allen UA (CLEAN/CATCH) MICROSCOPIC IF INDICATEon 03-30-2021 Bilirubin Ql (U) Negative Normal NEGATIVE [facility] Comment on above: Performed By: #### U ARMICR ####[facility] [address] [address]Dr. Darcyshawna Allen Clarity (U) CLEAR Normal CLEAR [facility] Comment on above: Performed By: #### U ARMICR ####[facility] [address] [place], [place] [address]Dr. Lissy Allen Color (U) LT. YELLOW Normal YELLOW [facility] Comment on above: Performed By: #### U ARMICR ####[facility] [address] [place], [place] [address]Dr. Lissy Alejandro Glucose Ql (U) Negative Normal NEGATIVE [facility] Comment on above: Performed By: #### U ARMICR ####[facility] [address] [place], [place] [address]Dr. Lissy Allen Hemoglobin Ql (U) Negative Normal NEGATIVE [facility] Comment on above: Performed By: #### U ARMICR ####[facility] [address] [place], [place] [address]Dr. Lissy Allen Ketones Ql (U) Negative Normal NEGATIVE [facility] Comment on above: Performed By: #### U ARMICR ####[facility] [address] [place], [place] [address]Dr. Lissy Allen LEUKOCYTES Negative Normal NEGATIVE [facility] Comment on above: Performed By: #### U ARMICR ####[facility] [address] [place], [place] [address]Dr. Lissy Allen Nitrite Ql (U) Negative Normal NEGATIVE [facility] Comment on above: Performed By: #### U ARMICR ####[facility] [address] [place], [place] [address]Dr. Lissy Allen pH (U) 6.0 [pH] Normal 5-9 [facility] Comment on above: Performed By: #### U ARMICR ####[facility] [address] [place], [place] [address]Dr. Lissy Allen SPEC GRAVITY 1.025 Normal 1.005-<=1.02 5 [facility] Comment on above: Performed By: #### U ARMICR ####[facility] [address] [address]Dr. Lissy Allen UA PROTEIN Negative Normal NEGATIVE/ TRACE [facility] Comment on above: Performed By: #### U LORIICR ####[facility] [address] [address]Dr. Lissy Allen UR MICRO IND NOT INDICATED Normal [facility] Comment on above: Performed By: #### U LORIICR ####[facility] [address] [address]Dr. Lissy Allen Urobilinogen Qn (U) 0.2 {Calderon'U}/dL Normal 0.2 - 1. 0 [facility] Comment on above: Performed By: #### U LORIICR ####[facility] [address] [address]Dr. Lissy Allen US PREG BIOPHY W NON [...] profile score: 6.0 Electronically authenticated by: DEVIN ANAND Date: 2021-03-29 13:04 Normal [facility] US PREG BIOPHY W NON STRESSo [...] index was 5.7 cm. 3. Biophysical profile 10/24. Electronically authenticated by: DEVIN ALFARO Date: 2021-03-27 14:42 Normal [facility] US PREG BIOPHY W NON STRESSo [...] by: DEVIN ANAND Date: 2021-03-25 07:49 Normal [facility] US PREG BIOPHY W NON STRESSo [...] by: LUIS HART Date: 2021-03-24 14:45 Normal [facility] US PREG UMBILICAL ARTERYon 0 03-24-2021 [...] by: LUIS HART Date: 2021-03-24 13:37 Normal [facility] Vital Signs Date Time Vital Sign Value Performing Clinician Facility 10-09-2023 09:44-0400 Body temperature 97.16 [degF] Jewell Nicolás [facility] 10-09-2023 09:44-0400 Diastolic blood pressure 88 mm[Hg] Jewell Nicolás [facility] 10-09-2023 09:44-0400 Heart rate 88 /min Jewell Nicolás [facility] 10-09-2023 09:44-0400 Respiratory rate 14 /min Jewell Nicolás [facility] 10-09-2023 09:44-0400 SaO2% (BldA) [Mass fraction] 98 % Jewell Nicolás [facility] 10-09-2023 09:44-0400 Systolic blood pressure 112 mm[Hg] Jewell Nicolás [facility] 10-06-2023 22:00-0400 Heart rate 78 /min Andrea Ramin [facility] 10-06-2023 22:00-0400 SaO2% (BldA) [Mass fraction] 98 % Andrea Ramin [facility] 10-06-2023 21:30-0400 Diastolic blood pressure 70 mm[Hg] Andrea Ramin [facility] 10-06-2023 21:30-0400 Heart rate 70 /min Andrea Ramin [facility] 10-06-2023 21:30-0400 Mean blood pressure 81 mm[Hg] Andrea Ramin [facility] 10-06-2023 21:30-0400 Respiratory rate 16 /min Andrea Ramin [facility] 10-06-2023 21:30-0400 Systolic blood pressure 104 mm[Hg] Andrea Ramin [facility] 10-06-2023 21:00-0400 Diastolic blood pressure 73 mm[Hg] Andrea Ramin [facility] 10-06-2023 21:00-0400 Heart rate 71 /min Andrea Rmain [facility] 10-06-2023 21:00-0400 Mean blood pressure 83 mm[Hg] Andrea Ramin [facility] 10-06-2023 21:00-0400 Respiratory rate 15 /min Andrea Ramin [facility] 10-06-2023 20:00-0400 Diastolic blood pressure 88 mm[Hg] Andrea Ramin [facility] 10-06-2023 20:00-0400 Mean blood pressure 97 mm[Hg] Andrea Ramin [facility] 10-06-2023 20:00-0400 Systolic blood pressure 115 mm[Hg] Andrea Ramin [facility] 10-06-2023 19:11-0400 Body temperature 98.42 [degF] Andrea Ramin [facility] 10-06-2023 19:11-0400 Heart rate 81 /min Andrea Ramin [facility] 10-06-2023 19:11-0400 Respiratory rate 20 /min Andrea Ramin [facility] 10-06-2023 19:11-0400 SaO2% (BldA) [Mass fraction] 100 % Andrea Faustin [facility] 05-15-2023 12:59-0500 Blood Pressure Location Jewell Monzon [facility] 05-15-2023 12:59-0500 Body temperature 98.06 [degF] Jewell Rizviant [facility] 05-15-2023 12:59-0500 Diastolic blood pressure 74 mm[Hg] Jewell Nicolás [facility] 05-15-2023 12:59-0500 Heart rate 93 /min Jewell Rizviant [facility] 05-15-2023 12:59-0500 Respiratory rate 16 /min Jewell Rizviant [facility] 05-15-2023 12:59-0500 SaO2% (BldA) [Mass fraction] 98 % Jewell Rizviant [facility] 05-15-2023 12:59-0500 Systolic blood pressure 132 mm[Hg] Jewell Rizviant [facility] 05-09-2023 18:21-0500 Hourly Rounding Jamie Maurizio [facility] 05-09-2023 18:21-0500 Promise to Return Jamie Steven [facility] 05-09-2023 17:21-0500 Hourly Rounding Jamie Steven [facility] 05-09-2023 17:21-0500 Promise to Return Jamie Steven [facility] 05-09-2023 16:22-0500 Hourly Rounding Jamie Steven [facility] 05-09-2023 16:22-0500 Promise to Return Jamie Steven [facility] 05-09-2023 15:00-0500 Diastolic blood pressure 61 mm[Hg] Jamie Scalesdeloris [facility] 05-09-2023 15:00-0500 Heart rate 63 /min Jamie Steven [facility] 05-09-2023 15:00-0500 SaO2% (BldA) [Mass fraction] 97 % Jamie Scalesdeloris [facility] 05-09-2023 15:00-0500 Systolic blood pressure 97 mm[Hg] Jamie Scalesdeloris [facility] 05-09-2023 11:55-0500 Heart rate 87 /min Jamie Steven [facility] 05-09-2023 11:55-0500 SaO2% (BldA) [Mass fraction] 96 % Jamie Scalesdeloris [facility] 05-09-2023 11:53-0500 Body temperature 97.7 [degF] Jamie Scalesdeloris [facility] 05-09-2023 11:53-0500 Diastolic blood pressure 71 mm[Hg] Jamie Scalesidge [facility] 05-09-2023 11:53-0500 Mean blood pressure 83 mm[Hg] Jamiealex Scalesidge [facility] 05-09-2023 11:53-0500 Systolic blood pressure 109 mm[Hg] Jamiealex Scalesidge [facility] 05-09-2023 10:35-0500 Diastolic blood pressure 93 mm[Hg] Jamie Steven [facility] 05-09-2023 10:35-0500 Heart rate 93 /min Jamie Steven [facility] 05-09-2023 10:35-0500 Mean blood pressure 108 mm[Hg] Jamie Steven [facility] 05-09-2023 10:35-0500 SaO2% (BldA) [Mass fraction] 98 % Jamie Steven [facility] 05-09-2023 10:35-0500 Systolic blood pressure 137 mm[Hg] Jamie Steven [facility] 05-09-2023 09:47-0500 Body temperature 97.52 [degF] Jamie Steven [facility] 05-09-2023 09:47-0500 Mean blood pressure 85 mm[Hg] Jamie Steven [facility] 05-09-2023 09:47-0500 Respiratory rate 15 /min Jamie Scalesidge [facility] 05-09-2023 09:45-0500 Mean blood pressure 85 mm[Hg] Jamie Steven [facility] 05-09-2023 09:45-0500 Respiratory rate 14 /min Jamie Scalesidge [facility] 05-09-2023 09:40-0500 Respiratory rate 16 /min Jamie Scalesidge [facility] 05-09-2023 09:32-0500 Body temperature 97.16 [degF] Jamie Scalesidge [facility] 05-09-2023 09:25-0500 Respiratory rate 12 /min Jamie Scalseidge [facility] 05-09-2023 09:20-0500 Respiratory rate 11 /min Jamie Steven [facility] 05-09-2023 09:15-0500 Respiratory rate 15 /min Jamie Steven [facility] 05-09-2023 04:20-0500 Blood Pressure Location Jamie Steven [facility] 05-09-2023 04:20-0500 Body temperature 98.42 [degF] Jamie Steven [facility] 05-09-2023 01:53-0500 Blood Pressure Location Jamie Steven [facility] 05-09-2023 01:53-0500 Body temperature 97.88 [degF] Jamie Steven [facility] 05-09-2023 01:53-0500 Heart rate 78 /min Jamie Steven [facility] 05-09-2023 01:45-0500 Mean blood pressure 94 mm[Hg] Jamie Steven [facility] 05-09-2023 00:00-0500 Body temperature 100.04 [degF] Jamie Steven [facility] 05-08-2023 23:03-0500 Body temperature 100.94 [degF] Jamie Steven [facility] 05-08-2023 23:03-0500 Heart rate 87 /min Jamie Steven [facility] 05-02-2023 08:19-0500 Body temperature 97.88 [degF] [facility] 05-02-2023 08:19-0500 Diastolic blood pressure 77 mm[Hg] [facility] 05-02-2023 08:19-0500 Heart rate 92 /min [facility] 05-02-2023 08:19-0500 Respiratory rate 18 /min [facility] 05-02-[facility]23 08:19-0500 SaO2% (BldA) [Mass fraction] 94 % [facility] 05-02-2023 08:19-0500 Systolic blood pressure 124 mm[Hg] [facility] 04-23-2023 19:18-0500 Body temperature 98.06 [degF] Andrea Ramin [facility] 04-23-2023 19:18-0500 Diastolic blood pressure 82 mm[Hg] Andrea Ramin [facility] 04-23-2023 19:18-0500 Heart rate 71 /min Andrea Ramin [facility] 04-23-2023 19:18-0500 Respiratory rate 20 /min Andrea Ramin [facility] 04-23-2023 19:18-0500 SaO2% (BldA) [Mass fraction] 98 % Andrea Ramin [facility] 04-23-2023 19:18-0500 Systolic blood pressure 120 mm[Hg] Andrea Ramin [facility] 02-03-2023 00:18-0500 Diastolic blood pressure 88 mm[Hg] Kaylinn Dokken [facility] 02-03-2023 00:18-0500 Heart rate 65 /min Kaylinn Dokken [facility] 02-03-2023 00:18-0500 Mean blood pressure 96 mm[Hg] Kaylinn Dokken [facility] 02-03-2023 00:18-0500 Respiratory rate 18 /min Kaylinn Dokken [facility] 02-03-2023 00:18-0500 SaO2% (BldA) [Mass fraction] 99 % Kaylinn Dokken [facility] 02-03-2023 00:18-0500 Systolic blood pressure 112 mm[Hg] Kaylinn Dokken [facility] 02-02-2023 21:07-0500 Body temperature 97.88 [degF] Kaylinn Dokken [facility] 02-02-2023 21:07-0500 Diastolic blood pressure 101 mm[Hg] Kaylinn Dokken [facility] 02-02-2023 21:07-0500 Heart rate 112 /min Rositaylinn Dokken [facility] 02-02-2023 21:07-0500 Respiratory rate 16 /min Rositaylinn Dokken [facility] 02-02-2023 21:07-0500 SaO2% (BldA) [Mass fraction] 100 % Rositaylinn Dokken [facility] 02-02-2023 21:07-0500 Systolic blood pressure 138 mm[Hg] Kaylinn Dokken [facility] 10-16-2022 14:13-0400 Blood Pressure Location Jewell Nicolás [facility] 10-16-2022 14:13-0400 Body temperature 96.44 [degF] Jewell Nicolás [facility] 10-16-2022 14:13-0400 Diastolic blood pressure 78 mm[Hg] Jewell Nicolás [facility] 10-16-2022 14:13-0400 Heart rate 78 /min Jewell Nicolás [facility] 10-16-2022 14:13-0400 Respiratory rate 18 /min Jewell Nicolás [facility] 10-16-2022 14:13-0400 SaO2% (BldA) [Mass fraction] 99 % Jewell Nicolás [facility] 10-16-2022 14:13-0400 Systolic blood pressure 118 mm[Hg] Jewell Nicolás [facility] 07-10-2022 14:44-0400 Blood Pressure Location MARCIA SIDELL [facility] 07-10-2022 14:44-0400 Body temperature 98.24 [degF] MARCIA SIDELL [facility] 07-10-2022 14:44-0400 Diastolic blood pressure 72 mm[Hg] MARCIA SIDELL [facility] 07-10-2022 14:44-0400 Heart rate 105 /min MARCIA SIDELL [facility] 07-10-2022 14:44-0400 SaO2% (BldA) [Mass fraction] 99 % MARCIA SIDELL [facility] 07-10-2022 14:44-0400 Systolic blood pressure 114 mm[Hg] MARCIA SIDELL [facility] 03-02-2022 14:15-0500 Diastolic blood pressure 83 mm[Hg] Candy Mora DDS Work Phone: [facility] 03-02-2022 14:15-0500 Heart rate 65 /min Candy Mora DDS Work Phone: [email or web address] 03-02-2022 14:15-0500 Respiratory rate 20 /min Candy Mora DDS Work Phone: [email or web address] 03-02-2022 14:15-0500 SaO2% (BldA) [Mass fraction] 98 % Candy Mora DDS Work Phone: [email or web address] 03-02-2022 14:15-0500 Systolic blood pressure 116 mm[Hg] Candy Mora DDS Work Phone: [email or web address] 03-02-2022 13:57-0500 Body temperature 97.39 [degF] Candy Mora DDS Work Phone: [email or web address] 03-02-2022 11:53-0500 Body height 165.1 cm Candy [facility] DDS [facility] 03-02-2022 11:53-0500 Body mass index (BMI) [Ratio] 34.11 kg/m2 Candy Mora DDS Work Phone: [email or web address] 03-02-2022 11:53-0500 Body weight 92.99 kg Candy Mora DDS Work Phone: [facility] 02-19-2022 07:14-0500 Diastolic blood pressure 83 mm[Hg] Andrea Ramin [facility] 02-19-2022 07:14-0500 Heart rate 78 /min Andrea Ramin [facility] 02-19-2022 07:14-0500 Respiratory rate 16 /min Andrea Ramin [facility] 02-19-2022 07:14-0500 SaO2% (BldA) [Mass fraction] 99 % Andrea Ramin [facility] 02-19-2022 07:14-0500 Systolic blood pressure 121 mm[Hg] Andrea Ramin [facility] 02-19-2022 05:40-0500 Body temperature 97.7 [degF] Andrea Ramin [facility] 02-19-2022 05:40-0500 Diastolic blood pressure 85 mm[Hg] Andrea Ramin [facility] 02-19-2022 05:40-0500 Heart rate 89 /min Andrea Ramin [facility] 02-19-2022 05:40-0500 Respiratory rate 16 /min [facility] Ramin [facility] 02-19-2022 05:40-0500 SaO2% (BldA) [Mass fraction] 100 % [facility] Ramin [facility] 02-19-2022 05:40-0500 Systolic blood pressure 129 mm[Hg] [facility] Ramin [facility] 02-16-2022 11:00-0500 Body height 165.[address] [facility] 02-16-2022 11:00-0500 Body mass index (BMI) [Ratio] 34.11 kg/m2 [facility] 02-16-2022 11:00-0500 Body weight 92.[address] [facility] 02-04-2022 10:22-0500 Body temperature 97.7 [degF] Reece Yip [facility] 02-04-2022 10:22-0500 Diastolic blood pressure 70 mm[Hg] Reece Yip [facility] 02-04-2022 10:22-0500 Heart rate 81 /min Reece Yip [facility] 02-04-2022 10:22-0500 Respiratory rate 16 /min Reece Yip [facility] 02-04-2022 10:22-0500 SaO2% (BldA) [Mass fraction] 98 % Reece Yip [facility] 02-04-2022 10:22-0500 Systolic blood pressure 132 mm[Hg] Reece Yip [facility] 01-16-2022 14:31-0400 Body height 165.1 cm Candy Mora DDS Work Phone: [employer] 01-16-2022 14:31-0400 Body mass index (BMI) [Ratio] 33.78 kg/m2 Candy Mora DDS Work Phone: [email or web address] 01-16-2022 14:31-0400 Body temperature 98.01 [degF] Candy Mora DDS Work Phone: [email or web address] 01-16-2022 14:31-0400 Body weight 92.08 kg Candy Mora DDS Work Phone: [employer] 01-16-2022 14:31-0400 Diastolic blood pressure 81 mm[Hg] Candy Mora DDS Work Phone: [employer] 01-16-2022 14:31-0400 Heart rate 105 /min Candy Mora DDS Work Phone: [employer] 01-16-2022 14:31-0400 Respiratory rate 14 /min Candy Mora DDS Work Phone: [employer] 01-16-2022 14:31-0400 SaO2% (BldA) [Mass fraction] 99 % Candy Mora DDS Work Phone: [employer] 01-16-2022 14:31-0400 Systolic blood pressure 105 mm[Hg] Candy Mora DDS Work Phone: [email or web address] 08-27-2021 08:32-0400 Body temperature 98.24 [degF] Lane Berger [facility] 08-27-2021 08:32-0400 Diastolic blood pressure 63 mm[Hg] Lane Berger [facility] 08-27-2021 08:32-0400 Heart rate 78 /min Lane Berger [facility] 08-27-2021 08:32-0400 Respiratory rate 20 /min Lane Berger [facility] 08-27-2021 08:32-0400 SaO2% (BldA) [Mass fraction] 98 % Lane Berger [facility] 08-27-2021 08:32-0400 Systolic blood pressure 113 mm[Hg] Lane Berger [facility] Encounters Encounter Date Encounter Type Care Provider Facility Start: 03-14-2024 ambulatory MSN, HSE COORDINATOR-WELL DRILL OPERATOR Jewell Monzon Facility:[facility] Start: 03-14-2024 End: 03-14-2024 Patient encounter procedure Jewell Monzon [facility] [place] Start: 03-04-2024 End: 03-04-2024 ambulatory MSN, HSE COORDINATOR-WELL DRILL OPERATOR Jewell Monzon Facility:[facility] Start: 03-04-2024 End: 03-04-2024 Patient encounter procedure Jewell Monzon [facility] [place] Start: 02-29-2024 End: 02-29-2024 ambulatory MSN, HSE COORDINATOR-WELL DRILL OPERATOR Jewell Monzon Facility:[facility] Start: 02-29-2024 End: 02-29-2024 Off-Site Jewell Monzon [facility] [place] Start: 01-08-2024 End: 01-08-2024 ambulatory MO BARNARD Facility:[facility] Start: 10-16-2023 End: 10-17-2023 Pre-admission assessment Jewell Monzon [facility] Start: 10-09-2023 End: 10-09-2023 ambulatory LEOPOLDO, HSE COORDINATOR-WELL DRILL OPERATOR [facility] Start: 10-09-2023 End: 10-09-2023 Patient encounter procedure Jewell Monzon [facility] [place] Start: 10-08-2023 End: 10-08-2023 [facility] Start: 10-08-2023 End: 10-08-2023 Patient encounter procedure Jewell Monzon [facility] [place] Start: 10-06-2023 End: 10-06-2023 Emergency department patient visit Andrea Faustin [facility] Start: 09-17-2023 End: 09-17-2023 ambulatory RESHMA BEBETO Not Available Start: 08-09-2023 End: 08-09-2023 ambulatory Smitha Wetzel Facility:[facility] Start: 08-09-2023 End: 08-09-2023 [facility]: 08-08-2023 End: 08-08-2023 ambulatory NATALY PERLA Not Available Start: 07-11-2023 End: 07-11-2023 ambulatory RESHMA BEBETO Not Available Start: 05-15-2023 End: 05-15-2023 ambulatory MSN, HSE COORDINATOR-WELL DRILL OPERATOR Jewell Monzon Facility:[facility] Start: 05-15-2023 End: 05-15-2023 [facility] Start: 05-10-2023 End: 06-11-2023 ambulatory MSN, HSE COORDINATOR-WELL DRILL OPERATOR Jewell Monzon Facility::[id number] Start: 05-08-2023 End: 05-09-2023 ambulatory Jamie Steven Facility:[facility] Start: 05-08-2023 End: 05-09-2023 Observation Jamie Steven [facility] Start: 05-02-2023 End: 05-02-2023 Emergency department patient visit Adolph Aleman [facility] Start: 04-23-2023 End: 04-23-2023 Emergency department patient visit Andrea Encinas Ramin [facility] Start: 04-04-2023 End: 04-04-2023 ambulatory MSN, HSE COORDINATOR-WELL DRILL OPERATOR Jewell [facility] Start: 03-27-2023 End: 03-27-2023 ambulatory LEOPOLDO, HSE COORDINATOR-WELL DRILL OPERATOR Jewell Monzon Facility:[facility] Start: 03-27-2023 End: 03-27-2023 Patient encounter procedure Jewell Monzon [facility] Start: 02-02-2023 End: 02-03-2023 Emergency department patient visit Earline Bond [facility] Start: 02-02-2023 ambulatory Lennox Brewer acility:[facility] Start: 10-16-2022 End: 10-16-2022 Patient encounter procedure Jewell Monzon [facility] Start: 09-08-2022 End: 06-23-2023 Patient encounter procedure MARCIA JUAREZ [facility] Start: 07-10-2022 End: 07-10-2022 Patient encounter procedure MARCIA JUAREZ [facility] Start: 03-20-2022 Letter encounter Ellie mcclellan Start: 03-14-2022 End: 03-14-2022 Follow-up encounter Oral Surgery 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 Set Production Designer Work Phone: [facility] Oral Surgery Start: 03-14-2022 End: 03-14-2022 Telemedicine consultation with patient Oral Theater Set Production Designer Work Phone: [facility] Oral Surgery Comment on above: Post-operative state (Primary Dx) Start: 03-14-2022 End: 03-15-2022 ambulatory UNKNOWN PROVIDER Facility:[facility] Start: 03-02-2022 End: 03-02-2022 ambulatory CANDY MORA Facility:[facility] Start: 03-02-2022 End: 03-02-2022 Subsequent hospital visit by physician Candy Mora DDS Work Phone: [facility] OR Comment on above: 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) Start: 02-23-2022 Telephone encounter Ashley hurd RN [facility] Pre Surgical Evaluation Comment on above: Pre-surgical Evaluat ion ( Pre-op COVID testing not needed ) Start: 02-19-2022 End: 02-19-2022 Emergency department patient visit Andrea SGale Faustin [facility] Start: 02-16-2022 ambulatory [facility] Start: 02-16-2022 Encounter for other preprocedural examination UNKNOWN PROVIDER [facility] Start: 02-15-2022 End: 02-15-2022 Nursing evaluation of patient and [facility] Comment on above: Preop examination (P rimary Dx) Start: 02-15-2022 End: 02-15-2022 Preprocedural examination done Pse Rn [facility] Pre Surgical Evaluation Start: 02-15-2022 Telephone encounter Katherine Thrasher RN Work Phone: [facility] Pre Surgical Evaluation Comment on above: Pre-surgical Evaluat ion (Not available/) Start: 02-04-2022 End: 02-04-2022 Emergency department patient visit Reece Yip [facility] Start: 01-30-2022 Letter encounter Miri eleuterio [employer] Start: 01-16-2022 End: 01-18-2022 ambulatory UNKNOWN PROVIDER Facility:[facility] Start: 01-16-2022 End: 01-16-2022 Patient encounter procedure Candy Mora DDS Work Phone: [facility] Oral Surgery Comment on above: 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 Comment on above: Caries (Primary Dx) Start: 09-29-2021 End: 10-03-2021 ambulatory UNKNOWN PROVIDER Facility:[facility] Start: 09-28-2021 End: 09-30-2021 ambulatory UNKNOWN PROVIDER Facility:[facility] Start: 09-28-2021 End: 09-30-2021 Patient encounter procedure Jayme Marquez DDS Work Phone: [facility] Start: 08-27-2021 End: 08-27-2021 Emergency department patient visit Lane Berger [facility] Start: 04-19-[address] DOCTOR MATHEWS Facility :[facility] Start: 04-12-2021 End: 04-12-[address] RESHMA ARTHUR Facility:[facility] Start: 04-08-2021 End: 04-08-2021 ambulatory AMBER ISATU Facility:[facility] Start: 04-06-2021 End: 07-05-2021 Patient encounter procedure Lissy Allen [facility] Start: 04-06-[address] RESHMA ARTHUR Facility :[facility] Start: 04-04-2021 End: 04-05-[address] DOCTOR MATHEWS Facility:[facility] Start: 04-01-2021 End: 04-01-[address] RESHMA ARTHUR Facility:[facility] Start: 03-30-2021 End: 03-31-[address] RESHMA ARTHUR Facility:[facility] Start: 03-29-2021 End: 03-29-[address] RESHMA ARTHUR Facility:[facility] Start: 03-27-2021 End: 03-27-[address] RUDDY HERNÁNDEZ Facility:[facility] Start: 03-24-2021 End: 03-25-[address] DOCTOR MATHEWS Facility:[facility] Start: 03-23-2021 End: 03-23-[address] DOCTOR MATHEWS Facility:[facility] Start: 05-31-2020 RhD negative Lissy Allen [facility] Start: 12-27-2018 End: 12-27-2018 Subsequent hospital visit by physician Raymond Moyer [facility] Procedures Date Procedure Procedure Detail Performing Clinician Start: 05-09-2023 Laparoscopic appendectomy Jamie Steven Start: 03-02-2022 Urine test visual color cmprsn jamess Bhavesh Cameron DMD Work Phone: section Lissy Allen section Lissy Allen Fracture of mandible , closed (disorder) Lissy Allen History of appendectomy S/P appendectomy Jewell Monzon Plan of Treatment Date Care Activity Detail Author Start: 2048 Shingles (RZV) Vacci ne (1 of 2) Shingles (RZV) Vaccine (1 of 2) [facility] Start: 01-08-2027 Tetanus vaccination Tetanus (T d or Tdap) Booster [facility] Start: 03-15-2022 End: 03-15-2022 Telemedicine consultation with patient 03/15/2022 Telemedicine Oral Surgery Candy Mora DDS [address] [place] [id number] [facility] Oral Surgery Start: 03-14-2022 End: 03-14-2022 Telemedicine consultation with patient 03/14/2022 Telemedicine Oral Surgery [facility] Start: 03-02-2022 End: 03-02-2022 EXTRACTION, TOOTH EXTRACTION, TOOTH Routine scheduled 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 03/02/2022 1:[address] Start: 03-02-2022 End: 03-02-2022 Admission to same day surgery center 03/02/2022 Surgery Ambulatory Surgery Candy Mora DDS [address] [place] [id number] EXTRACTION, TOOTH - #2, 15, 18, 19, 20, [address] [facility] [place] Comment on above: EXTRACTION, TOOTH - #2, 15, 18, 19, 20, 30 Start: 03-02-2022 End: 03-02-2022 EXTRACTION, TOOTH EXTRACTION, TOOTH Routine scheduled 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 03/02/2022 11:[address] Start: 03-02-2022 Subsequent hospital visit by physician 03/02/2022 Hospital Encounter Ambulatory Surgery Candy Mora DDS [address] [place] [id number] [facility] [facility] [place] Start: 03-02-2022 End: 03-02-2022 Admission to same day surgery center 03/02/2022 Surgery Ambulatory Surgery Candy Mora, CATALINOS [address] [place] [address] EXTRACTION, TOOTH - #2, 15, 18, 19, 20, 30 [facility] Comment on above: EXTRACTION, TOOTH - #2, 15, 18, 19, 20, 30 Start: 03-02-2022 End: 03-02-2022 EXTRACTION, TOOTH EXTRACTION, TOOTH Routine scheduled 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 03/02/2022 9:51 AM [facility] Start: 03-02-2022 Subsequent hospital visit by physician 03/02/2022 Hospital Encounter Ambulatory Surgery Candy Mora, DDS [address] [place] [address] [facility] Start: 02-15-2022 End: 02-15-2022 Nursing evaluation of patient and report 02/15/2022 Nurse Visit Presurgical Evaluation [facility] Pre Surgical Evaluation Start: 01-16-2022 End: 01-16-2022 Patient encounter procedure 01/16/2022 Office Visit Oral Surgery Candy Mora, DDS [address] [place] [address] [facility] Start: 12-17-2021 Influenza vaccination Influenza Vacc ine (#1) [facility] Start: 10-15-2020 COVID-19 Vaccine (2 - Booster for Ilda series) COVID-19 Vaccine (2 - Booster for Ilda series) [facility] Start: 06-16-2019 Screening for malign ant neoplasm of cervix Pap Smear [facility] Start: 01-03-2019 End: 01-03-2019 Appointment 01/03/2019 Appointment Psychiatry Noreen Jacobo, [facility] Start: 11-17-2018 Influenza vaccination Flu vaccine (# 1) [place] Start: 2017 DTaP/Tdap/Td vaccine (1 - Tdap) DTaP/Tdap/Td vaccine (1 - Tdap) [place] Start: 2016 Hepatitis C screening Hepatitis C An tibody [facility] Start: 2016 Screening for Chlamy kentrell trachomatis STI Screening (Age 18-24) [facility] Start: 2014 Chlamydia screen Chlamydia screen [place], [place] Start: 2014 Meningococcal B (Bexsero,OMV) Vaccine (Optional,16-23 years) (#1) Meningococcal B (Bexsero,OMV) Vaccine (Optional,16-23 years) (#1) [facility] Start: 2013 HIV screen HIV screen [place], [place] Start: 2013 HIV screening HIV Test [facility] Start: 2013 HPV vaccine (1 - Fem shayna 3-dose series) HPV vaccine (1 - Female 3-dose series) [place] Start: 06-16-2011 Varicella Vaccine (1 of 2 - 13+ 2-dose series) Varicella Vaccine (1 of 2 - 13+ 2-dose series) [place] extraction, erupted tooth or exposed root (elevation and/or forceps removal) EXTRACTION ERUPTED TOOTH/EXR Procedures Routine 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 Ordered: 03/02/2022 [facility]: Comment on above: Ordered: 03/02/2022 EXTRACTION, TOOTH EXTRACTION, TO OTH Routine scheduled 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 [facility] Immunizations Immunization Date Immunization Notes Care Provider Wilver rodrigues 08-20-2020 [facility] SARS-COV-2 (COVID-19) vaccine, vector non-replicating, recombinant spike protein-[id number], preservative free, 0.5 mL (PMV=407) Jayme Marquez [employer] Work Phone: [facility] Comment on above: Result Comment: 2022: TPVAL 01-08-2017 tetanus toxoid, redu allegra diphtheria toxoid, and acellular pertussis vaccine, adsorbed; Translations: [Adacel (Tdap)] Lissy Allen [facility] 05-10-2015 hepatitis A vaccine, pediatric/adolescent dosage, 2 dose schedule Jayme Marquez D[employer] Work Phone: [facility] 05-10-2015 hepatitis A vaccine, unspecified formulation MARCIA JUAREZ [facility] 05-10-2015 HPV, unspecified formulation MARCIA SIDELL [facility] 05-10-2015 human papilloma viru s vaccine, quadrivalent Jayme Al-Sandyi DDS Work Phone: [facility] 10-30-2014 hepatitis A vaccine, pediatric/adolescent dosage, 2 dose schedule Jayme Benitezi DDS Work Phone: [facility] 10-30-2014 hepatitis A vaccine, unspecified formulation MARCIA SIDELL [facility] 10-30-2014 HPV, unspecified formulation MARCIA SIDELL [facility] 10-30-2014 human papilloma viru s vaccine, quadrivalent [facility] DDS Work Phone: [facility] 10-30-2014 measles, mumps and rubella virus vaccine [facility] 10-30-2014 meningococcal ACWY vaccine, unspecified formulation MARCIA SIDELL [facility] 10-30-2014 meningococcal polysaccharide (groups A, C, Y and W-135) diphtheria toxoid conjugate vaccine (MCV4P) [facility]: [facility] 11-07-2010 HPV, unspecified formulation [facility] DDS Work Phone: [facility] 11-07-2010 tetanus toxoid, redu allegra diphtheria toxoid, and acellular pertussis vaccine, adsorbed [facility] DDS Work Phone: [facility] 12-16-1999 diphtheria, tetanus toxoids and acellular pertussis vaccine, unspecified formulation [facility] Work [facility]: [facility] 12-16-1999 DTaP, unspecified formulation MARCIA SIDELL [facility] 12-16-1999 pneumococcal conjuga te vaccine, 13 valent MARCIA SIDELL [facility] 12-16-1999 pneumococcal conjuga te vaccine, 7 valent Jayme Al-Mashni DDS Work Phone: [facility] 09-14-1999 diphtheria, tetanus toxoids and acellular pertussis vaccine, unspecified formulation Jayme Al-Mashni DDS Work Phone: [facility] 09-14-1999 DTaP, unspecified formulation MACRIA SIDELL [facility] 09-14-1999 haemophilus influenz ae type b vaccine, PRP-OMP conjugate [facility] Work Phone: [facility] 09-14-1999 hepatitis B vaccine, pediatric or pediatric/adolescent dosage Jayme Al-Mashni DDS Work Phone: [facility] 09-14-1999 measles, mumps and rubella virus vaccine Jayme Al-Mashni DDS Work Phone: [facility] 09-14-1999 poliovirus vaccine, inactivated Jayme Al-Mashni DDS Work Phone: [facility] 09-14-1999 poliovirus vaccine, unspecified formulation MARCIA SIDELL [facility] 09-14-1999 varicella virus vaccine Lait h Al-Mashni DDS Work Phone: [facility] 1998 diphtheria, tetanus toxoids and acellular pertussis vaccine, unspecified formulation Jayme Al-Mashni DDS Work Phone: [facility] 1998 DTaP, unspecified formulation MARCIA SIDELL [facility] 1998 haemophilus influenz ae type b vaccine, PRP-OMP conjugate Jayme Al-Mashni DDS Work Phone: [facility] 1998 poliovirus vaccine, inactivated Jayme Al-Mashni DDS Work Phone: [facility] 1998 poliovirus vaccine, unspecified formulation MARCIA SIDELL [facility] 1998 diphtheria, tetanus toxoids and acellular pertussis vaccine, unspecified formulation Jayme Al-Kikahni DDS Work Phone: [facility] 1998 DTaP, unspecified formulation MARCIA SIDELL [facility] 1998 haemophilus influenz ae type b vaccine, PRP-OMP conjugate Jayme Yury-Kikahni DDS Work Phone: [facility] 1998 hepatitis B vaccine, pediatric or pediatric/adolescent dosage Jayme Al-Kikahni DDS Work Phone: [facility] 1998 poliovirus vaccine, inactivated Jayme Al-Kikahni DDS Work Phone: [facility] 1998 poliovirus vaccine, unspecified formulation MARCIA SIDELL [facility] 1998 hepatitis B vaccine, pediatric or pediatric/adolescent dosage Jayme Al-Kikahni DDS Work Phone: [facility] Payers Date Payer Category Payer Private Health Insurance [id number] 2023 Self-pay 2021 Medicaid [id number] 2011 Medicaid [id number] 1998 Unknown [id number] 2.16.84 0.1.568299.3.579.2.593 1998 Unknown [id number] 2.16.84 0.1.391155.3.579.2.593 1998 Unknown [id number] 2.16.84 0.1.751376.3.579.2.593 1998 Unknown [id number] 2.16.84 0.1.240081.3.579.2.593 1998 Unknown [id number] 2.16.84 0.1.075227.3.579.2.593 1998 Unknown [id number] 2.16.84 0.1.102073.3.579.2.593 1998 Unknown [id number] 2.16.84 0.1.673759.3.579.2.593 1998 Unknown [id number] 2.16.84 0.1.421940.3.579.2.593 1998 Unknown [id number] 2.16.84 0.1.761042.3.579.2.593 1998 Unknown [id number] 2.16.84 0.1.176110.3.579.2.593 1998 Unknown [id number] 2.16.84 0.1.569368.3.579.2.593 1998 Unknown [id number] 2.16.84 0.1.763408.3.579.2.593 1998 Unknown [id number] 2.16.84 0.1.433641.3.579.2.593 1998 Unknown [id number] 2.16.84 0.1.011624.3.579.2.593 1998 Unknown [id number] 2.16.84 0.1.403683.3.579.2.593 1998 Unknown [id number] 2.16. 840.1.407299.3.579.2.732 1998 Unknown [id number] 2.16. 840.1.610623.3.579.2.732 1998 Unknown [id number] 2.16. 840.1.382475.3.579.2.732 1998 Unknown [id number] 2.16. 840.1.203547.3.579.2.732 1998 Unknown [id number] 2.16. 840.1.860860.3.579.2.732 1998 Unknown [id number] 2.16. 840.1.428052.3.579.2.732 1998 Unknown [id number] 2.16.84 0.1.888255.3.579.2.1259 1998 Unknown [id number] 2.16.84 0.1.767049.3.579.2.1259 1998 Unknown [id number] 2.16.84 0.1.845158.3.579.2.1259 1998 Unknown [id number] 2.16.8 40.1.774637.3.579.2.727 1998 Unknown [id number] 2.16.8 40.1.561530.3.579.2.727 1998 Unknown [id number] 2.16.8 40.1.920437.3.579.2.727 1998 Unknown [id number] 2.16.8 40.1.695926.3.579.2.727 1998 Unknown [id number] 2.16.8 40.1.157108.3.579.2.727 1998 Unknown [id number] 2.16.8 40.1.303243.3.579.2.727 1998 Unknown [id number] 2.16.8 40.1.833488.3.579.2.727 1998 Unknown [id number] 2.16.8 40.1.482439.3.579.2.727 1998 Unknown [id number] 2.16.8 40.1.186040.3.579.2.727 1998 Unknown [id number] 2.16.8 40.1.316282.3.579.2727 1998 Unknown [id number] 2.16.8 40.1.290459.3.579.2.727 1998 Unknown [id number] 2.16.8 40.1.881711.3.579.2.727 1998 Unknown [id number] 2.16.8 40.1.053402.3.579.2.727 1998 Unknown [id number] 2.16.8 40.1.447747.3.579.2.727 1998 Unknown [id number] 2.16.8 40.1.240597.3.579.2.727 1998 Unknown [id number] 2.16.8 40.1.214347.3.579.2.727 1998 Unknown [id number] 2.16.8 40.1.557141.3.579.2.727 1959 Self-pay [id number] 1959 Unknown [id number] Unknown [id number] 2.16.8 40.1.524863.3.579.2.531 Social History Date Type Detail Facility Tobacco smoking status NJIS Unknown if ever smoked [place], [place] Start: 1998 Sex Assigned At Not on file [place] Start: 09-14-2020 End: 02-29-2024 Tobacco smoking status Ex-smoker (finding) [facility] Sex Assigned At Female [facility] Tobacco [facility] Comment on above: denies Tobacco smoking status NHIS Tobacco smoking consumption unknown [facility] Work Phone: Tobacco smoking status No Smoking Status Entered [facility] Start: 02-16-2022 Tobacco smoking status NHIS Never smoked tobacco [facility] Work Phone: Start: 02-16-2022 Tobacco use and exposure Smokeless tobacco non-user [facility] Start: 02-16-2022 End: 03-03-2022 Alcohol intake Lifetime non-drinker (finding) [facility] Tobacco smoking status Never [facility] Functional Status Date Assessment Result Facility 02-29-2024 Functional Status N/A [facility] 10-09-2023 Functional Status N/A [facility] 10-06-2023 Functional Status N/A [facility] 05-15-2023 Functional Status N/A [facility] 05-09-2023 Functional Status No [facility] 05-08-2023 Functional Status [facility] 05-02-2023 Functional Status N/A [facility] 04-23-2023 Functional Status N/A [facility] 02-02-2023 Functional Status N/A [facility] 10-16-2022 Functional Status N/A [facility] 07-10-2022 Functional Status N/A [facility] 02-19-2022 Functional Status N/A [facility] 02-04-2022 Functional Status N/A [facility] 08-27-2021 Functional Status N/A [facility] Clinical Notes 08-27-2021 to 03-13-2024 Note Date & Type Note Facility 03-13-2024 Hospital Discharg e instructions Patient Education 03/13/2024 16:38:47 Managing Anxiety, Adult Managing Anxiety, Adult After being diagnosed with anxiety, you may be relieved to know why you have felt or behaved a certain way. You may also feel overwhelmed about the treatment ahead and what it will mean for your life. With care and support, you can manage your anxiety. How to manage lifestyle changes Understanding the difference between stress and anxiety Although stress can play a role in anxiety, it is not the same as anxiety. Stress is your body's reaction to life changes and events, both good and bad. Stress is often caused by something external, such as a deadline, test, or competition. It normally goes away after the event has ended and will last just a few hours. But, stress can be ongoing and can lead to more than just stress. Anxiety is caused by something internal, such as imagining a terrible outcome or worrying that something will go wrong that will greatly upset you. Anxiety often does not go away even after the event is over, and it can become a long-term (chronic) worry. Lowering stress and anxiety Talk with your health care provider or a counselor to learn more about lowering anxiety and stress. They may suggest tension-reduction techniques, such as: Music. Spend time creating or listening to music that you enjoy and that inspires you. Mindfulness-based meditation. Practice being aware of your normal breaths while not trying to control your breathing. It can be done while sitting or walking. Centering prayer. Focus on a word, phrase, or sacred image that means something to you and brings you peace. Deep breathing. Expand your stomach and inhale slowly through your nose. Hold your breath for 3 5 seconds. Then breathe out slowly, letting your stomach muscles relax. Self-talk. Learn to notice and spot thought patterns that lead to anxiety reactions. Change those patterns to thoughts that feel peaceful. Muscle relaxation. Take time to tense muscles and then relax them. Choose a tension-reduction technique that fits your lifestyle and personality. These techniques take time and practice. Set aside 5 15 minutes a day to do them. Specialized therapists can offer counseling and training in these techniques. The training to help with anxiety may be covered by some insurance plans. Other things you can do to manage stress and anxiety include: Keeping a stress diary. This can help you learn what triggers your reaction and then learn ways to manage your response. Thinking about how you react to certain situations. You may not be able to control everything, but you can control your response. Making time for activities that help you relax and not feeling guilty about spending your time in this way. Doing visual imagery. This involves imagining or creating mental pictures to help you relax. Practicing yoga. Through yoga poses, you can lower tension and relax. Medicines Medicines for anxiety include: Antidepressant medicines. These are usually prescribed for long-term daily control. Anti-anxiety medicines. These may be added in severe cases, especially when panic attacks occur. When used together, medicines, psychotherapy, and tension-reduction techniques may be the most effective treatment. Relationships Relationships can play a big part in helping you recover. Spend more time connecting with trusted friends and family members. Think about going to couples counseling if you have a partner, taking family education classes, or going to family therapy. Therapy can help you and others better understand your anxiety. How to recognize changes in your anxiety Everyone responds differently to treatment for anxiety. Recovery from anxiety happens when symptoms lessen and stop interfering with your daily life at home or work. This may mean that you will start to: Have better concentration and focus. Worry will interfere less in your daily thinking. Sleep better. Be less irritable. Have more energy. Have improved memory. Try to recognize when your condition is getting worse. Contact your provider if your symptoms interfere with home or work and you feel like your condition is not improving. Follow these instructions at home: Activity Exercise. Adults should: ?Exercise for at least 150 minutes each week. The exercise should increase your heart rate and make you sweat (moderate-intensity exercise). ?Do strengthening exercises at least twice a week. Get the right amount and quality of sleep. Most adults need 7 9 hours of sleep each night. Lifestyle Eat a healthy diet that includes plenty of vegetables, fruits, whole grains, low-fat dairy products, and lean protein. ?Do not eat a lot of foods that are high in fats, added sugars, or salt (sodium). Make choices that simplify your life. Do not use any products that contain nicotine or tobacco. These products include cigarettes, chewing tobacco, and vaping devices, such as e-cigarettes. If you need help quitting, ask your provider. Avoid caffeine, alcohol, and certain ntdp-mqo-fskjocw cold medicines. These may make you feel worse. Ask your pharmacist which medicines to avoid. General instructions Take mkcy-kdg-lmjupui and prescription medicines only as told by your provider. Keep all follow-up visits. This is to make sure you are managing your anxiety well or if you need more support. Where to find support You can get help and support from: Self-help groups. Online and community organizations. A trusted spiritual leader. Couples counseling. Family education classes. Family therapy. Where to find more information You may find that joining a support group helps you deal with your anxiety. The following sources can help you find counselors or support groups near you: Mental Health [place]: mentalhealthamerica.net Anxiety and Depression Association of [place] (ADAA): adaa.org National [place] on Mental Illness (FAZAL): fazal.org Contact a health care provider if: You have a hard time staying focused or finishing tasks. You spend many hours a day feeling worried about everyday life. You are very tired because you cannot stop worrying. You start to have headaches or often feel tense. You have chronic nausea or diarrhea. Get help right away if: Your heart feels like it is racing. You have shortness of breath. You have thoughts of hurting yourself or others. Get help right away if you feel like you may hurt yourself or others, or have thoughts about taking your own life. Go to your nearest emergency room or: Call 911. Call the National Suicide Prevention Lifeline at or 472. This is open 24 hours a day. Text the Crisis Text Line at 407232. This information is not intended to replace advice given to you by your health care provider. Make sure you discuss any questions you have with your health care provider. Document Revised: 12/12/2022 Document Reviewed: 06/26/2021 [employer] Patient Education 2023 [employer]. 03/13/2024 16:38:44 Managing Depression, Adult Managing Depression, Adult Depression is a mental health condition that affects your thoughts, feelings, and actions. Being diagnosed with depression can bring you relief if you did not know why you have felt or behaved a certain way. It could also leave you feeling overwhelmed. Finding ways to manage your symptoms can help you feel more positive about your future. How to manage lifestyle changes Being depressed is difficult. Depression can increase the level of everyday stress. Stress can make depression symptoms worse. You may believe your symptoms cannot be managed or will never improve. However, there are many things you can try to help manage your symptoms. There is hope. Managing stress Stress is your body's reaction [...] pray, or go to a place of bahai. Practice deep breathing. To do this, inhale slowly through your nose. Pause at the top of your inhale for a few seconds and then exhale slowly, letting yourself relax. Repeat this three or four times. Practice yoga to help relax and work your muscles. Choose a stress reduction technique that works for you. These techniques take time and practice to develop. Set aside 5 15 minutes a day to do them. Therapists can offer training in these techniques. Do these things to help manage stress: Keep a journal. Know your limits. Set healthy boundaries for yourself and others, such as saying no when you think something is too much. Pay attention to how you react to certain situations. You may not be able to control everything, but you can change your reaction. Add humor to your life by watching funny movies or shows. Make time for activities that you enjoy and that relax you. Spend less time using electronics, especially at night before bed. The light from screens can make your brain think it is time to get up rather than go to bed. Medicines Medicines, such as antidepressants, are often [...] Have more interest in doing activities. Feel more hopeful. Have more energy. Eat a more regular amount of food. Have better mental focus. It is important to recognize if your depression is not getting better or is getting worse. The symptoms you had in the beginning may return, such as: Feeling tired. Eating too much or too little. Sleeping too much or too little. Feeling restless, agitated, or hopeless. Trouble focusing or making decisions. Having unexplained aches and pains. Feeling irritable, angry, or aggressive. If you or your family members notice these symptoms coming back, let your health care provider know right away. Follow these instructions at home: Activity Try to get some form of exercise each day, such as walking. Try yoga, mindfulness, or other stress reduction techniques. Participate in group activities if you are able. Lifestyle Get enough sleep. Cut down on or stop using caffeine, tobacco, alcohol, and any other harmful substances. Eat a healthy diet that includes plenty of vegetables, fruits, whole grains, low-fat dairy products, and lean protein. Limit foods that are high in solid fats, added sugar, or salt (sodium). General instructions Take qatc-bao-vvsfnwg and prescription medicines only as told by your health care provider. Keep all follow-up visits. It is important for your health care provider to check on your mood, behavior, and medicines. Your health care provider may need to make changes to your treatment. Where to find support Talking to others Friends and family members can be sources of support and guidance. Talk to trusted friends or family members about your condition. Explain your symptoms and let them know that you are working with a health care provider to treat your depression. Tell friends and family how they can help. Finances Find mental health providers that fit with your financial situation. Talk with your health care provider if you are worried about access to food, housing, or medicine. Call your insurance company to learn about your co-pays and prescription plan. Where to find more information You can find support in your area from: Anxiety and Depression Association of [place] (ADAA): adaa.org Mental Health [place]: mentalhealthamerica.net National [place] on Mental Illness: fazal.org Contact a health care provider if: You stop taking your antidepressant medicines, and you have any of these symptoms: ?Nausea. ?Headache. ?Light-headedness. ?Chills and body aches. ?Not being able to sleep (insomnia). You or your friends and family think your depression is getting worse. Get help right away if: You have thoughts of hurting yourself or others. Get help right away if you feel like you may hurt yourself or others, or have thoughts about taking your own life. Go to your nearest emergency room or: Call 911. Call the National Suicide Prevention Lifeline at or 185. This is open 24 hours a day. Text the Crisis Text Line at 236450. This information is not intended to replace advice given to you by your health care provider. Make sure you discuss any questions you have with your health care provider. Document Revised: 07/11/2022 Document Reviewed: 07/11/2022 [employer] Patient Education 2023 [employer]. Follow Up Care 03/13/2024 11:09:59 With:Nicolás MINA, HSE COORDINATOR-WELL DRILL OPERATOR, Jewell Alcala Address: [address] [place] [phone] When:Within 1 Month(s) [facility] 03-13-2024 Note Patient Education Mental and Behavioral Health Managing Anxiety, Adult After being diagnosed with anxiety, you may be relieved to know why you have felt or behaved a certain way. You may also feel overwhelmed about the treatment ahead and what it will mean for your life. With care and support, you can manage your anxiety. How to manage lifestyle changes Understanding the difference between stress and anxiety Although stress can play a role in anxiety, it is not the same as anxiety. Stress is your body's reaction to life changes and events, both good and bad. Stress is often caused by something external, such as a deadline, test, or competition. It normally goes away after the event has ended and will last just a few hours. But, stress can be ongoing and can lead to more than just stress. Anxiety is caused by something internal, such as imagining a terrible outcome or worrying that something will go wrong that will greatly upset you. Anxiety often does not go away even after the event is over, and it can become a long-term (chronic) worry. Lowering stress and anxiety Talk with your health care provider or a counselor to learn more about lowering anxiety and stress. They may suggest tension-reduction techniques, such as: ??? Music. Spend time creating or listening to music that you enjoy and that inspires you. ??? Mindfulness-based meditation. Practice being aware of your normal breaths while not trying to control your breathing. It can be done while sitting or walking. ??? Centering prayer. Focus on a word, phrase, or sacred image that means something to you and brings you peace. ??? Deep breathing. Expand your stomach and inhale slowly through your nose. Hold your breath for 3?5 seconds. Then breathe out slowly, letting your stomach muscles relax. ??? Self-talk. Learn to notice and spot thought patterns that lead to anxiety reactions. Change those patterns to thoughts that feel peaceful. ??? Muscle relaxation. Take time to tense muscles and then relax them. Choose a tension-reduction technique that fits your lifestyle and personality. These techniques take time and practice. Set aside 5?15 minutes a day to do them. Specialized therapists can offer counseling and training in these techniques. The training to help with anxiety may be covered by some insurance plans. Other things you can do to manage stress and anxiety include: ??? Keeping a stress diary. This can help you learn what triggers your reaction and then learn ways to manage your response. ??? Thinking about how you react to certain situations. You may not be able to control everything, but you can control your response. ??? Making time for activities that help you relax and not feeling guilty about spending your time in this way. ??? Doing visual imagery. This involves imagining or creating mental pictures to help you relax. ??? Practicing yoga. Through yoga poses, you can lower tension and relax. Medicines Medicines for anxiety include: ??? Antidepressant medicines. These are usually prescribed for long-term daily control. ??? Anti-anxiety medicines. These may be added in severe cases, especially when panic attacks occur. When used together, medicines, psychotherapy, and tension-reduction techniques may be the most effective treatment. Relationships Relationships can play a big part in helping you recover. Spend more time connecting with trusted friends and family members. Think about going to couples counseling if you have a partner, taking family education classes, or going to family therapy. Therapy can help you and others better understand your anxiety. How to recognize changes in your anxiety Everyone responds differently to treatment for anxiety. Recovery from anxiety happens when symptoms lessen and stop interfering with your daily life at home or work. This may mean that you will start to: ??? Have better concentration and focus. Worry will interfere less in your daily thinking. ??? Sleep better. ??? Be less irritable. ??? Have more energy. ??? Have improved memory. Try to recognize when your condition is getting worse. Contact your provider if your symptoms interfere with home or work and you feel like your condition is not improving. Follow these instructions at home: Activity ??? Exercise. Adults should: ? Exercise for at least 150 minutes each week. The exercise should increase your heart rate and make you sweat (moderate-intensity exercise). ? Do strengthening exercises at least twice a week. ??? Get the right amount and quality of sleep. Most adults need 7?9 hours of sleep each night. Lifestyle ??? Eat a healthy diet that includes plenty of vegetables, fruits, whole grains, low-fat dairy products, and lean protein. ? Do not eat a lot of foods that are high in fats, added sugars, or salt (sodium). ??? Make choices that simplify your life. ??? Do not use any products (more content not included)... [facility] 03-02-2024 Hospital Discharg e instructions Patient Education 03/02/2024 14:18:06 Panic Attack Panic Attack A panic attack is a sudden episode of severe anxiety, fear, or discomfort that causes physical and emotional symptoms. A panic attack may be in response to something frightening, or it may occur for no known reason. Symptoms of a panic attack can be similar to symptoms of a heart attack or stroke. It is important to see your health care provider when you have a panic attack so that these conditions can be ruled out. What are the causes? A panic attack may be caused by: An extreme, life-threatening situation, such as a war or natural disaster. An anxiety disorder, such as post-traumatic stress disorder. Depression. Panic disorder. Certain medical conditions, including heart problems, neurological conditions, and infections. Other causes may include: Certain yeoc-qlt-sxrzxqf and prescription medicines. Supplements that increase anxiety. Illegal drugs that increase heart rate and blood pressure, such as methamphetamine. What increases the risk? You are more likely to develop this condition if: You have another mental health condition. You use alcohol, illegal drugs, or other substances. You are under extreme stress. A life event is causing increased feelings of anxiety and depression. What are the signs or symptoms? A panic attack starts suddenly, usually lasts 5 10 minutes, and occurs with one or more of the following: A pounding heart, or a feeling that your heart is beating irregularly or faster than normal (palpitations). Sweating, trembling, or shaking. Shortness of breath, feeling smothered, or feeling choked. Chest pain or discomfort. Nausea or a strange feeling in your stomach. Dizziness, feeling light-headed, or feeling like you might faint. Other symptoms may include: Chills or hot flashes. Numbness or tingling in your lips, hands, or feet. Feeling confused, or feeling that you are not yourself. Fear of losing control or of being emotionally unstable, or fear of dying. How is this diagnosed? A panic attack is diagnosed with an assessment by your health care provider. During the assessment, your health care provider will ask questions about: Your history of anxiety, depression, and panic attacks. Your medical history. Whether you drink alcohol, use drugs, take supplements, or take medicines. Be honest about your substance use. Your health care provider may also: Order blood tests or other kinds of tests to rule out serious medical conditions. Refer you to a mental health professional for further evaluation. How is this treated? A panic attack is a symptom of another condition. Treatment depends on the cause of the panic attack. If the cause is a medical problem, your health care provider will treat that problem or refer you to a specialist. If the cause is emotional, you may be given anti-anxiety medicines or referred to a counselor. Anti-anxiety medicines may reduce how often attacks happen, reduce how severe the attacks are, and lower anxiety. If the cause is a medicine, your health care provider may tell you to stop the medicine, change your dose, or take a different medicine. If the cause is an illegal drug, treatment may involve letting the drug wear off and taking medicine to help the drug leave your body or to stop its effects. Attacks caused by heavy drug use may continue even if you stop using the drug. Most panic attacks go away with treatment of the underlying problem. If you have panic attacks often, you may have a condition called panic disorder. Follow these instructions at home: Alcohol use Do not drink alcohol if: ?Your health care provider tells you not to drink. ?You are , may be , or are planning to become . If you drink alcohol: ?Limit how much you have to: ?0 1 drink a day for women. ?0 2 drinks a day for men. ?Know how much alcohol is in your drink. In the [place] one drink equals one 12 oz bottle of beer (355 mL), one 5 oz glass of wine (148 mL), or one 1 oz glass of hard liquor (44 mL). General instructions Take myhd-xhl-yskdnio and prescription medicines only as told by your health care provider. If you feel anxious, limit your caffeine intake. Take good care of your physical and mental health by: ?Eating a balanced diet that includes plenty of fresh fruits and vegetables, whole grains, lean meats, and low-fat dairy. ?Getting plenty of rest. Try to get 7 8 hours of uninterrupted sleep each night. ?Exercising regularly. Try to get 30 minutes of physical activity at least 5 days a week. Do not use any products that contain nicotine or tobacco. These products include cigarettes, chewing tobacco, and vaping devices, such as e-cigarettes. If you need help quitting, ask your health care provider. Keep all follow-up visits. This is important. Panic attacks may have underlying physical or emotional problems that take time to accurately diagnose. Where to find more information Substance Abuse and Mental Health Services Administration (SAMHSA): samhsa.gov National [place] of Mental Health ([facility]): www.nimh.nih.gov Contact a health care provider if: Your symptoms do not improve, or they get worse. You are not able to take your medicine as prescribed because of side effects. Get help right away if: You have thoughts about hurting yourself or others. Get help right away if you feel like you may hurt yourself or others, or have thoughts about taking your own life. Go to your nearest emergency room or: Call 911. Call the National Suicide Prevention Lifeline at or 084. This is open 24 hours a day. Text the Crisis Text Line at 610267. Summary A panic attack is a sudden episode of severe anxiety, fear, or discomfort that causes physical and emotional symptoms. Always see a health care provider to have the reasons for the panic attack correctly diagnosed. If your panic attack was caused by a physical problem, follow your health care provider's suggestions for medicine, referral to a specialist, and lifestyle changes. If your panic attack was caused by an emotional problem, follow through with counseling from a qualified mental health specialist. If you feel like you may hurt yourself or others, call 911 and get help right away. This information is not intended to replace advice given to you by your health care provider. Make sure you discuss any questions you have with your health care provider. Document Revised: 10/13/2021 Document Reviewed: 10/13/2021 [employer] Patient Education 2023 [employer]. 03/02/2024 14:18:02 Managing Anxiety, Adult Managing Anxiety, Adult After being diagnosed with anxiety, you may be relieved to know why you have felt or behaved a certain way. You may also feel overwhelmed about the treatment ahead and what it will mean for your life. With care and support, you can manage your anxiety. How to manage lifestyle changes Understanding the difference between stress and anxiety Although stress can play a role in anxiety, it is not the same as anxiety. Stress is your body's reaction to life changes and events, both good and bad. Stress is often caused by something external, such as a deadline, test, or competition. It normally goes away after the event has ended and will last just a few hours. But, stress can be ongoing and can lead to more than just stress. Anxiety is caused by something internal, such as imagining a terrible outcome or worrying that something will go wrong that will greatly upset you. Anxiety often does not go away even after the event is over, and it can become a long-term (chronic) worry. Lowering stress and anxiety Talk with your health care provider or a counselor to learn more about lowering anxiety and stress. They may suggest tension-reduction techniques, such as: Music. Spend time creating or listening to music that you enjoy and that inspires you. Mindfulness-based meditation. Practice being aware of your normal breaths while not trying to control your breathing. It can be done while sitting or walking. Centering prayer. Focus on a word, phrase, or sacred image that means something to you and brings you peace. Deep breathing. Expand your stomach and inhale slowly through your nose. Hold your breath for 3 5 seconds. Then breathe out slowly, letting your stomach muscles relax. Self-talk. Learn to notice and spot thought patterns that lead to anxiety reactions. Change those patterns to thoughts that feel peaceful. Muscle relaxation. Take time to tense muscles and then relax them. Choose a tension-reduction technique that fits your lifestyle and personality. These techniques take time and practice. Set aside 5 15 minutes a day to do them. Specialized therapists can offer counseling and training in these techniques. The training to help with anxiety may be covered by some insurance plans. Other things you can do to manage stress and anxiety include: Keeping a stress diary. This can help you learn what triggers your reaction and then learn ways to manage your response. Thinking about how you react to certain situations. You may not be able to control everything, but you can control your response. Making time for activities that help you relax and not feeling guilty about spending your time in this way. Doing visual imagery. This involves imagining or creating mental pictures to help you relax. Practicing yoga. Through yoga poses, you can lower tension and relax. Medicines Medicines for anxiety include: Antidepressant medicines. These are usually prescribed for long-term daily control. Anti-anxiety medicines. These may be added in severe cases, especially when panic attacks occur. When used together, medicines, psychotherapy, and tension-reduction techniques may be the most effective treatment. Relationships Relationships can play a big part in helping you recover. Spend more time connecting with trusted friends and family members. Think about going to couples counseling if you have a partner, taking family education classes, or going to family therapy. Therapy can help you and others better understand your anxiety. How to recognize changes in your anxiety Everyone responds differently to treatment for anxiety. Recovery from anxiety happens when symptoms lessen and stop interfering with your daily life at home or work. This may mean that you will start to: Have better concentration and focus. Worry will interfere less in your daily thinking. Sleep better. Be less irritable. Have more energy. Have improved memory. Try to recognize when your condition is getting worse. Contact your provider if your symptoms interfere with home or work and you feel like your condition is not improving. Follow these instructions at home: Activity Exercise. Adults should: ?Exercise for at least 150 minutes each week. The exercise should increase your heart rate and make you sweat (moderate-intensity exercise). ?Do strengthening exercises at least twice a week. Get the right amount and quality of sleep. Most adults need 7 9 hours of sleep each night. Lifestyle Eat a healthy diet that includes plenty of vegetables, fruits, whole grains, low-fat dairy products, and lean protein. ?Do not eat a lot of foods that are high in fats, added sugars, or salt (sodium). Make choices that simplify your life. Do not use any products that contain nicotine or tobacco. These products include cigarettes, chewing tobacco, and vaping devices, such as e-cigarettes. If you need help quitting, ask your provider. Avoid caffeine, alcohol, and certain knon-hho-rsofcia cold medicines. These may make you feel worse. Ask your pharmacist which medicines to avoid. General instructions Take xwuy-suk-xdoiwhc and prescription medicines only as told by your provider. Keep all follow-up visits. This is to make sure you are managing your anxiety well or if you need more support. Where to find support You can get help and support from: Self-help groups. Online and community organizations. A trusted spiritual leader. Couples counseling. Family education classes. Family therapy. Where to find more information You may find that joining a support group helps you deal with your anxiety. The following sources can help you find counselors or support groups near you: Mental Health [place]: mentalhealth[place].net Anxiety and Depression Association of [place] (ADAA): adaa.org National [place] on Mental Illness (FAZAL): fazal.org Contact a health care provider if: You have a hard time staying focused or finishing tasks. You spend many hours a day feeling worried about everyday life. You are very tired because you cannot stop worrying. You start to have headaches or often feel tense. You have chronic nausea or diarrhea. Get help right away if: Your heart feels like it is racing. You have shortness of breath. You have thoughts of hurting yourself or others. Get help right away if you feel like you may hurt yourself or others, or have thoughts about taking your own life. Go to your nearest emergency room or: Call 911. Call the National Suicide Prevention Lifeline at or 986. This is open 24 hours a day. Text the Crisis Text Line at 918269. This information is not intended to replace advice given to you by your health care provider. Make sure you discuss any questions you have with your health care provider. Document Revised: 12/12/2022 Document Reviewed: 06/26/2021 [employer] Patient Education 2023 [employer]. Follow Up Care 02/29/2024 07:35:35 With:Nicolás MINA, HSE COORDINATOR-WELL DRILL OPERATORJewell Address: [address] [place] [phone] When:Within 1 Month(s) [facility] [place] 03-02-2024 Note Patient Education Mental and Behavioral Health Panic Attack A panic attack is a sudden episode of severe anxiety, fear, or discomfort that causes physical and emotional symptoms. A panic attack may be in response to something frightening, or it may occur for no known reason. Symptoms of a panic attack can be similar to symptoms of a heart attack or stroke. It is important to see your health care provider when you have a panic attack so that these conditions can be ruled out. What are the causes? A panic attack may be caused by: ??? An extreme, life-threatening situation, such as a war or natural disaster. ??? An anxiety disorder, such as post-traumatic stress disorder. ??? Depression. ??? Panic disorder. ??? Certain medical conditions, including heart problems, neurological conditions, and infections. Other causes may include: ??? Certain smag-eaw-amutwbv and prescription medicines. ??? Supplements that increase anxiety. ??? Illegal drugs that increase heart rate and blood pressure, such as methamphetamine. What increases the risk? You are more likely to develop this condition if: ??? You have another mental health condition. ??? You use alcohol, illegal drugs, or other substances. ??? You are under extreme stress. ??? A life event is causing increased feelings of anxiety and depression. What are the signs or symptoms? A panic attack starts suddenly, usually lasts 5?10 minutes, and occurs with one or more of the following: ??? A pounding heart, or a feeling that your heart is beating irregularly or faster than normal (palpitations). ??? Sweating, trembling, or shaking. ??? Shortness of breath, feeling smothered, or feeling choked. ??? Chest pain or discomfort. ??? Nausea or a strange feeling in your stomach. ??? Dizziness, feeling light-headed, or feeling like you might faint. Other symptoms may include: ??? Chills or hot flashes. ??? Numbness or tingling in your lips, hands, or feet. ??? Feeling confused, or feeling that you are not yourself. ??? Fear of losing control or of being emotionally unstable, or fear of dying. How is this diagnosed? A panic attack is diagnosed with an assessment by your health care provider. During the assessment, your health care provider will ask questions about: ??? Your history of anxiety, depression, and panic attacks. ??? Your medical history. ??? Whether you drink alcohol, use drugs, take supplements, or take medicines. Be honest about your substance use. Your health care provider may also: ??? Order blood tests or other kinds of tests to rule out serious medical conditions. ??? Refer you to a mental health professional for further evaluation. How is this treated? A panic attack is a symptom of another condition. Treatment depends on the cause of the panic attack. ??? If the cause is a medical problem, your health care provider will treat that problem or refer you to a specialist. ??? If the cause is emotional, you may be given anti-anxiety medicines or referred to a counselor. Anti-anxiety medicines may reduce how often attacks happen, reduce how severe the attacks are, and lower anxiety. ??? If the cause is a medicine, your health care provider may tell you to stop the medicine, change your dose, or take a different medicine. ??? If the cause is an illegal drug, treatment may involve letting the drug wear off and taking medicine to help the drug leave your body or to stop its effects. Attacks caused by heavy drug use may continue even if you stop using the drug. Most panic attacks go away with treatment of the underlying problem. If you have panic attacks often, you may have a condition called panic disorder. Follow these instructions at home: Alcohol use ??? Do not drink alcohol if: ? Your health care provider tells you not to drink. ? You are , may be , or are planning to become . ??? If you drink alcohol: ? Limit how much you have to: ? 0?1 drink a day for women. ? 0?2 drinks a day for men. ? Know how much alcohol is in your drink. In the [place] one drink equals one 12 oz bottle of beer (355 mL), one 5 oz glass of wine (148 mL), or one 1? oz glass of hard liquor (44 mL). General instructions ??? Take zwhw-fnv-bwpswhp and prescription medicines only as told by your health care provider. ??? If you feel anxious, limit your caffeine intake. ??? Take good care of your physical and mental health by: ? Eating a balanced diet that includes plenty of fresh fruits and vegetables, whole grains, lean meats, and low-fat dairy. ? Getting plenty of rest. Try to get 7?8 hours of uninterrupted sleep each night. ? Exercising regularly. Try to get 30 minutes of physical activity at least 5 days a week. ??? Do not use any products that contain nicotine or tobacco. These products include cigarettes, chewing tobacco, and vaping devices, such as e-cigarettes. If you need help quitting, ask your hea (more content not included)... [facility] 02-28-2024 Hospital Discharg e instructions Patient Education 02/28/2024 18:25:50 Panic Attack Panic Attack A panic attack is a sudden episode of severe anxiety, fear, or discomfort that causes physical and emotional symptoms. A panic attack may be in response to something frightening, or it may occur for no known reason. Symptoms of a panic attack can be similar to symptoms of a heart attack or stroke. It is important to see your health care provider when you have a panic attack so that these conditions can be ruled out. What are the causes? A panic attack may be caused by: An extreme, life-threatening situation, such as a war or natural disaster. An anxiety disorder, such as post-traumatic stress disorder. Depression. Panic disorder. Certain medical conditions, including heart problems, neurological conditions, and infections. Other causes may include: Certain ticl-kkh-qnpijvh and prescription medicines. Supplements that increase anxiety. Illegal drugs that increase heart rate and blood pressure, such as methamphetamine. What increases the risk? You are more likely to develop this condition if: You have another mental health condition. You use alcohol, illegal drugs, or other substances. You are under extreme stress. A life event is causing increased feelings of anxiety and depression. What are the signs or symptoms? A panic attack starts suddenly, usually lasts 5 10 minutes, and occurs with one or more of the following: A pounding heart, or a feeling that your heart is beating irregularly or faster than normal (palpitations). Sweating, trembling, or shaking. Shortness of breath, feeling smothered, or feeling choked. Chest pain or discomfort. Nausea or a strange feeling in your stomach. Dizziness, feeling light-headed, or feeling like you might faint. Other symptoms may include: Chills or hot flashes. Numbness or tingling in your lips, hands, or feet. Feeling confused, or feeling that you are not yourself. Fear of losing control or of being emotionally unstable, or fear of dying. How is this diagnosed? A panic attack is diagnosed with an assessment by your health care provider. During the assessment, your health care provider will ask questions about: Your history of anxiety, depression, and panic attacks. Your medical history. Whether you drink alcohol, use drugs, take supplements, or take medicines. Be honest about your substance use. Your health care provider may also: Order blood tests or other kinds of tests to rule out serious medical conditions. Refer you to a mental health professional for further evaluation. How is this treated? A panic attack is a symptom of another condition. Treatment depends on the cause of the panic attack. If the cause is a medical problem, your health care provider will treat that problem or refer you to a specialist. If the cause is emotional, you may be given anti-anxiety medicines or referred to a counselor. Anti-anxiety medicines may reduce how often attacks happen, reduce how severe the attacks are, and lower anxiety. If the cause is a medicine, your health care provider may tell you to stop the medicine, change your dose, or take a different medicine. If the cause is an illegal drug, treatment may involve letting the drug wear off and taking medicine to help the drug leave your body or to stop its effects. Attacks caused by heavy drug use may continue even if you stop using the drug. Most panic attacks go away with treatment of the underlying problem. If you have panic attacks often, you may have a condition called panic disorder. Follow these instructions at home: Alcohol use Do not drink alcohol if: ?Your health care provider tells you not to drink. ?You are , may be , or are planning to become . If you drink alcohol: ?Limit how much you have to: ?0 1 drink a day for women. ?0 2 drinks a day for men. ?Know how much alcohol is in your drink. In the [place] one drink equals one 12 oz bottle of beer (355 mL), one 5 oz glass of wine (148 mL), or one 1 oz glass of hard liquor (44 mL). General instructions Take cagw-grm-hbcncsc and prescription medicines only as told by your health care provider. If you feel anxious, limit your caffeine intake. Take good care of your physical and mental health by: ?Eating a balanced diet that includes plenty of fresh fruits and vegetables, whole grains, lean meats, and low-fat dairy. ?Getting plenty of rest. Try to get 7 8 hours of uninterrupted sleep each night. ?Exercising regularly. Try to get 30 minutes of physical activity at least 5 days a week. Do not use any products that contain nicotine or tobacco. These products include cigarettes, chewing tobacco, and vaping devices, such as e-cigarettes. If you need help quitting, ask your health care provider. Keep all follow-up visits. This is important. Panic attacks may have underlying physical or emotional problems that take time to accurately diagnose. Where to find more information Substance Abuse and Mental Health Services Administration (SAMHSA): samhsa.gov National [place] of Mental Health ([facility]): www.[facility].nih.gov Contact a health care provider if: Your symptoms do not improve, or they get worse. You are not able to take your medicine as prescribed because of side effects. Get help right away if: You have thoughts about hurting yourself or others. Get help right away if you feel like you may hurt yourself or others, or have thoughts about taking your own life. Go to your nearest emergency room or: Call 911. Call the National Suicide Prevention Lifeline at or 058. This is open 24 hours a day. Text the Crisis Text Line at 416161. Summary A panic attack is a sudden episode of severe anxiety, fear, or discomfort that causes physical and emotional symptoms. Always see a health care provider to have the reasons for the panic attack correctly diagnosed. If your panic attack was caused by a physical problem, follow your health care provider's suggestions for medicine, referral to a specialist, and lifestyle changes. If your panic attack was caused by an emotional problem, follow through with counseling from a qualified mental health specialist. If you feel like you may hurt yourself or others, call 911 and get help right away. This information is not intended to replace advice given to you by your health care provider. Make sure you discuss any questions you have with your health care provider. Document Revised: 10/13/2021 Document Reviewed: 10/13/2021 [employer] Patient Education 2023 [employer]. 02/28/2024 18:25:40 Managing Anxiety, Adult Managing Anxiety, Adult After being diagnosed with anxiety, you may be relieved to know why you have felt or behaved a certain way. You may also feel overwhelmed about the treatment ahead and what it will mean for your life. With care and support, you can manage your anxiety. How to manage lifestyle changes Understanding the difference between stress and anxiety Although stress can play a role in anxiety, it is not the same as anxiety. Stress is your body's reaction to life changes and events, both good and bad. Stress is often caused by something external, such as a deadline, test, or competition. It normally goes away after the event has ended and will last just a few hours. But, stress can be ongoing and can lead to more than just stress. Anxiety is caused by something internal, such as imagining a terrible outcome or worrying that something will go wrong that will greatly upset you. Anxiety often does not go away even after the event is over, and it can become a long-term (chronic) worry. Lowering stress and anxiety Talk with your health care provider or a counselor to learn more about lowering anxiety and stress. They may suggest tension-reduction techniques, such as: Music. Spend time creating or listening to music that you enjoy and that inspires you. Mindfulness-based meditation. Practice being aware of your normal breaths while not trying to control your breathing. It can be done while sitting or walking. Centering prayer. Focus on a word, phrase, or sacred image that means something to you and brings you peace. Deep breathing. Expand your stomach and inhale slowly through your nose. Hold your breath for 3 5 seconds. Then breathe out slowly, letting your stomach muscles relax. Self-talk. Learn to notice and spot thought patterns that lead to anxiety reactions. Change those patterns to thoughts that feel peaceful. Muscle relaxation. Take time to tense muscles and then relax them. Choose a tension-reduction technique that fits your lifestyle and personality. These techniques take time and practice. Set aside 5 15 minutes a day to do them. Specialized therapists can offer counseling and training in these techniques. The training to help with anxiety may be covered by some insurance plans. Other things you can do to manage stress and anxiety include: Keeping a stress diary. This can help you learn what triggers your reaction and then learn ways to manage your response. Thinking about how you react to certain situations. You may not be able to control everything, but you can control your response. Making time for activities that help you relax and not feeling guilty about spending your time in this way. Doing visual imagery. This involves imagining or creating mental pictures to help you relax. Practicing yoga. Through yoga poses, you can lower tension and relax. Medicines Medicines for anxiety include: Antidepressant medicines. These are usually prescribed for long-term daily control. Anti-anxiety medicines. These may be added in severe cases, especially when panic attacks occur. When used together, medicines, psychotherapy, and tension-reduction techniques may be the most effective treatment. Relationships Relationships can play a big part in helping you recover. Spend more time connecting with trusted friends and family members. Think about going to couples counseling if you have a partner, taking family education classes, or going to family therapy. Therapy can help you and others better understand your anxiety. How to recognize changes in your anxiety Everyone responds differently to treatment for anxiety. Recovery from anxiety happens when symptoms lessen and stop interfering with your daily life at home or work. This may mean that you will start to: Have better concentration and focus. Worry will interfere less in your daily thinking. Sleep better. Be less irritable. Have more energy. Have improved memory. Try to recognize when your condition is getting worse. Contact your provider if your symptoms interfere with home or work and you feel like your condition is not improving. Follow these instructions at home: Activity Exercise. Adults should: ?Exercise for at least 150 minutes each week. The exercise should increase your heart rate and make you sweat (moderate-intensity exercise). ?Do strengthening exercises at least twice a week. Get the right amount and quality of sleep. Most adults need 7 9 hours of sleep each night. Lifestyle Eat a healthy diet that includes plenty of vegetables, fruits, whole grains, low-fat dairy products, and lean protein. ?Do not eat a lot of foods that are high in fats, added sugars, or salt (sodium). Make choices that simplify your life. Do not use any products that contain nicotine or tobacco. These products include cigarettes, chewing tobacco, and vaping devices, such as e-cigarettes. If you need help quitting, ask your provider. Avoid caffeine, alcohol, and certain mpzp-ftt-gljzpsb cold medicines. These may make you feel worse. Ask your pharmacist which medicines to avoid. General instructions Take kvof-ypo-vsyjpey and prescription medicines only as told by your provider. Keep all follow-up visits. This is to make sure you are managing your anxiety well or if you need more support. Where to find support You can get help and support from: Self-help groups. Online and community organizations. A trusted spiritual leader. Couples counseling. Family education classes. Family therapy. Where to find more information You may find that joining a support group helps you deal with your anxiety. The following sources can help you find counselors or support groups near you: Mental Health [place]: mentalhealthamerica.net Anxiety and Depression Association of [place] (ADAA): adaa.org National [place] on Mental Illness (FAZAL): fazal.org Contact a health care provider if: You have a hard time staying focused or finishing tasks. You spend many hours a day feeling worried about everyday life. You are very tired because you cannot stop worrying. You start to have headaches or often feel tense. You have chronic nausea or diarrhea. Get help right away if: Your heart feels like it is racing. You have shortness of breath. You have thoughts of hurting yourself or others. Get help right away if you feel like you may hurt yourself or others, or have thoughts about taking your own life. Go to your nearest emergency room or: Call 911. Call the National Suicide Prevention Lifeline at or 955. This is open 24 hours a day. Text the Crisis Text Line at 244886. This information is not intended to replace advice given to you by your health care provider. Make sure you discuss any questions you have with your health care provider. Document Revised: 12/12/2022 Document Reviewed: 06/26/2021 [employer] Patient Education 2023 [employer]. Follow Up Care 02/27/2024 14:35:07 With:Nicolás MINA, HSE COORDINATOR-WELL DRILL OPERATOR, Jewell Alcala Address: [address] [place] [phone] When:Within 1 Month(s) [facility] [place] 02-28-2024 Note Patient Education Mental and Behavioral Health Panic Attack A panic attack is a sudden episode of severe anxiety, fear, or discomfort that causes physical and emotional symptoms. A panic attack may be in response to something frightening, or it may occur for no known reason. Symptoms of a panic attack can be similar to symptoms of a heart attack or stroke. It is important to see your health care provider when you have a panic attack so that these conditions can be ruled out. What are the causes? A panic attack may be caused by: ??? An extreme, life-threatening situation, such as a war or natural disaster. ??? An anxiety disorder, such as post-traumatic stress disorder. ??? Depression. ??? Panic disorder. ??? Certain medical conditions, including heart problems, neurological conditions, and infections. Other causes may include: ??? Certain gllm-qzh-ujradld and prescription medicines. ??? Supplements that increase anxiety. ??? Illegal drugs that increase heart rate and blood pressure, such as methamphetamine. What increases the risk? You are more likely to develop this condition if: ??? You have another mental health condition. ??? You use alcohol, illegal drugs, or other substances. ??? You are under extreme stress. ??? A life event is causing increased feelings of anxiety and depression. What are the signs or symptoms? A panic attack starts suddenly, usually lasts 5?10 minutes, and occurs with one or more of the following: ??? A pounding heart, or a feeling that your heart is beating irregularly or faster than normal (palpitations). ??? Sweating, trembling, or shaking. ??? Shortness of breath, feeling smothered, or feeling choked. ??? Chest pain or discomfort. ??? Nausea or a strange feeling in your stomach. ??? Dizziness, feeling light-headed, or feeling like you might faint. Other symptoms may include: ??? Chills or hot flashes. ??? Numbness or tingling in your lips, hands, or feet. ??? Feeling confused, or feeling that you are not yourself. ??? Fear of losing control or of being emotionally unstable, or fear of dying. How is this diagnosed? A panic attack is diagnosed with an assessment by your health care provider. During the assessment, your health care provider will ask questions about: ??? Your history of anxiety, depression, and panic attacks. ??? Your medical history. ??? Whether you drink alcohol, use drugs, take supplements, or take medicines. Be honest about your substance use. Your health care provider may also: ??? Order blood tests or other kinds of tests to rule out serious medical conditions. ??? Refer you to a mental health professional for further evaluation. How is this treated? A panic attack is a symptom of another condition. Treatment depends on the cause of the panic attack. ??? If the cause is a medical problem, your health care provider will treat that problem or refer you to a specialist. ??? If the cause is emotional, you may be given anti-anxiety medicines or referred to a counselor. Anti-anxiety medicines may reduce how often attacks happen, reduce how severe the attacks are, and lower anxiety. ??? If the cause is a medicine, your health care provider may tell you to stop the medicine, change your dose, or take a different medicine. ??? If the cause is an illegal drug, treatment may involve letting the drug wear off and taking medicine to help the drug leave your body or to stop its effects. Attacks caused by heavy drug use may continue even if you stop using the drug. Most panic attacks go away with treatment of the underlying problem. If you have panic attacks often, you may have a condition called panic disorder. Follow these instructions at home: Alcohol use ??? Do not drink alcohol if: ? Your health care provider tells you not to drink. ? You are , may be , or are planning to become . ??? If you drink alcohol: ? Limit how much you have to: ? 0?1 drink a day for women. ? 0?2 drinks a day for men. ? Know how much alcohol is in your drink. In the [place] one drink equals one 12 oz bottle of beer (355 mL), one 5 oz glass of wine (148 mL), or one 1? oz glass of hard liquor (44 mL). General instructions ??? Take obtk-mbo-avndrhf and prescription medicines only as told by your health care provider. ??? If you feel anxious, limit your caffeine intake. ??? Take good care of your physical and mental health by: ? Eating a balanced diet that includes plenty of fresh fruits and vegetables, whole grains, lean meats, and low-fat dairy. ? Getting plenty of rest. Try to get 7?8 hours of uninterrupted sleep each night. ? Exercising regularly. Try to get 30 minutes of physical activity at least 5 days a week. ??? Do not use any products that contain nicotine or tobacco. These products include cigarettes, chewing tobacco, and vaping devices, such as e-cigarettes. If you need help quitting, ask your hea (more content not included)... [facility] 10-07-2023 Hospital Discharg e instructions Patient Education 10/07/2023 14:07:55 Managing Anxiety, Adult Managing Anxiety, Adult After being diagnosed with anxiety, you may be relieved to know why you have felt or behaved a certain way. You may also feel overwhelmed about the treatment ahead and what it will mean for your life. With care and support, you can manage this condition. How to manage lifestyle changes Managing stress and anxiety Stress is your body's reaction to life changes and events, both good and bad. Most stress will last just a few hours, but stress can be ongoing and can lead to more than just stress. Although stress can play a major role in anxiety, it is not the same as anxiety. Stress is usually caused by something external, such as a deadline, test, or competition. Stress normally passes after the triggering event has ended. Anxiety is caused by something internal, such as imagining a terrible outcome or worrying that something will go wrong that will devastate you. Anxiety often does not go away even after the triggering event is over, and it can become long-term (chronic) worry. It is important to understand the differences between stress and anxiety and to manage your stress effectively so that it does not lead to an anxious response. Talk with your health care provider or a counselor to learn more about reducing anxiety and stress. He or she may suggest tension reduction techniques, such as: Music therapy. Spend time creating or listening to music that you enjoy and that inspires you. Mindfulness-based meditation. Practice being aware of your normal breaths while not trying to control your breathing. It can be done while sitting or walking. Centering prayer. This involves focusing on a word, phrase, or sacred image that means something to you and brings you peace. Deep breathing. To do this, expand your stomach and inhale slowly through your nose. Hold your breath for 3 5 seconds. Then exhale slowly, letting your stomach muscles relax. Self-talk. Learn to notice and identify thought patterns that lead to anxiety reactions and change those patterns to thoughts that feel peaceful. Muscle relaxation. Taking time to tense muscles and then relax them. Choose a tension reduction technique that fits your lifestyle and personality. These techniques take time and practice. Set aside 5 15 minutes a day to do them. Therapists can offer counseling and training in these techniques. The training to help with anxiety may be covered by some insurance plans. Other things you can do to manage stress and anxiety include: Keeping a stress diary. This can help you learn what triggers your reaction and then learn ways to manage your response. Thinking about how you react to certain situations. You may not be able to control everything, but you can control your response. Making time for activities that help you relax and not feeling guilty about spending your time in this way. Doing visual imagery. This involves imagining or creating mental pictures to help you relax. Practicing yoga. Through yoga poses, you can lower tension and promote relaxation. Medicines Medicines can help ease symptoms. Medicines for anxiety include: Antidepressant medicines. These are usually prescribed for long-term daily control. Anti-anxiety medicines. These may be added in severe cases, especially when panic attacks occur. Medicines will be prescribed by a health care provider. When used together, medicines, psychotherapy, and tension reduction techniques may be the most effective treatment. Relationships Relationships can play a big part in helping you recover. Try to spend more time connecting with trusted friends and family members. Consider going to couples counseling if you have a partner, taking family education classes, or going to family therapy. Therapy can help you and others better understand your condition. How to recognize changes in your anxiety Everyone responds differently to treatment for anxiety. Recovery from anxiety happens when symptoms decrease and stop interfering with your daily activities at home or work. This may mean that you will start to: Have better concentration and focus. Worry will interfere less in your daily thinking. Sleep better. Be less irritable. Have more energy. Have improved memory. It is also important to recognize when your condition is getting worse. Contact your health care provider if your symptoms interfere with home or work and you feel like your condition is not improving. Follow these instructions at home: Activity Exercise. Adults should do the following: ?Exercise for at least 150 minutes each week. The exercise should increase your heart rate and make you sweat (moderate-intensity exercise). ?Strengthening exercises at least twice a week. Get the right amount and quality of sleep. Most adults need 7 9 hours of sleep each night. Lifestyle Eat a healthy diet that includes plenty of vegetables, fruits, whole grains, low-fat dairy products, and lean protein. ?Do not eat a lot of foods that are high in fats, added sugars, or salt (sodium). Make choices that simplify your life. Do not use any products that contain nicotine or tobacco. These products include cigarettes, chewing tobacco, and vaping devices, such as e-cigarettes. If you need help quitting, ask your health care provider. Avoid caffeine, alcohol, and certain qagw-ikp-xecdpvw cold medicines. These may make you feel worse. Ask your pharmacist which medicines to avoid. General instructions Take ousq-rvp-ikuaaui and prescription medicines only as told by your health care provider. Keep all follow-up visits. This is important. Where to find support You can get help and support from these sources: Self-help groups. Online and community organizations. A trusted spiritual leader. Couples counseling. Family education classes. Family therapy. Where to find more information You may find that joining a support group helps you deal with your anxiety. The following sources can help you locate counselors or support groups near you: Mental Health [place]: www.mentalhealthamerica.net Anxiety and Depression Association of [place] (ADAA): www.adaa.org National [place] on Mental Illness (FAZAL): www.fazal.org Contact a health care provider if: You have a hard time staying focused or finishing daily tasks. You spend many hours a day feeling worried about everyday life. You become exhausted by worry. You start to have headaches or frequently feel tense. You develop chronic nausea or diarrhea. Get help right away if: You have a racing heart and shortness of breath. You have thoughts of hurting yourself or others. If you ever feel like you may hurt yourself or others, or have thoughts about taking your own life, get help right away. Go to your nearest emergency department or: Call your local emergency services (560 in the [place] Call a suicide crisis helpline, such as the National Suicide Prevention Lifeline at or 065 in the [place] This is open 24 hours a day in the [place] Text the Crisis Text Line at 578975 (in the [place] Summary Taking steps to learn and use tension reduction techniques can help calm you and help prevent triggering an anxiety reaction. When used together, medicines, psychotherapy, and tension reduction techniques may be the most effective treatment. Family, friends, and partners can play a big part in supporting you. This information is not intended to replace advice given to you by your health care provider. Make sure you discuss any questions you have with your health care provider. Document Revised: 09/28/2021 Document Reviewed: 06/26/2021 [employer] Patient Education 2022 [employer]. 10/07/2023 14:07:51 Managing Depression, Adult Managing Depression, Adult Depression [...] pray, or go to a place of bahai. Do some deep breathing. To do this, [...] everything, but you can change your reaction. Adding humor [...] sugars, or salt (sodium). General instructions Take thcc-yse-edigoya and prescription medicines only as told by [...] (ADAA): www.adaa.org Mental Health Mira: www.mentalhealthamerica.net National [place] on Mental Illness: www.fazal.org Contact a health care provider if: You [...] or have thoughts about taking your own life, get help right away. Go to your nearest emergency department or: Call your local emergency services (665 in the [place] Call a suicide crisis helpline, such as the National Suicide Prevention Lifeline at or 268 in the [place] This is open 24 hours a day in the [place] Text the Crisis Text Line at 720334 (in the [place] Summary If you are diagnosed with depression, preparing yourself to manage your symptoms is a good way to feel positive about your future. Work with your health care provider on a management plan that includes stress reduction techniques, medicines (if applicable), therapy, and healthy lifestyle habits. [...] provider. Document Revised: 09/28/2021 Document Reviewed: 01/14/2020 [employer] Patient Education 2022 [employer] 10/07/2023 14:07:48 Acute Back Pain, Adult Acute Back Pain, Adult Acute back pain is sudden and usually short-lived. It is often caused by an injury to the muscles and tissues in the back. The injury may result from: A muscle, tendon, or ligament getting overstretched or torn. Ligaments are tissues that connect bones to each other. Lifting something improperly can cause a back strain. Wear and tear (degeneration) of the spinal disks. Spinal disks are circular tissue that provide cushioning between the bones of the spine (vertebrae). Twisting motions, such as while playing sports or doing yard work. A hit to the back. Arthritis. You may have a physical exam, lab tests, and imaging tests to find the cause of your pain. Acute back pain usually goes away with rest and home care. Follow these instructions at home: Managing pain, stiffness, and swelling Take njet-quq-tmbompv and prescription medicines only as told by your health care provider. Treatment may include medicines for pain and inflammation that are taken by mouth or applied to the skin, or muscle relaxants. Your health care provider may recommend applying ice during the first 24 48 hours after your pain starts. To do this: ?Put ice in a plastic bag. ?Place a towel between your skin and the bag. ?Leave the ice on for 20 minutes, 2 3 times a day. ?Remove the ice if your skin turns bright red. This is very important. If you cannot feel pain, heat, or cold, you have a greater risk of damage to the area. If directed, apply heat to the affected area as often as told by your health care provider. Use the heat source that your health care provider recommends, such as a moist heat pack or a heating pad. ?Place a towel between your skin and the heat source. ?Leave the heat on for 20 30 minutes. ?Remove the heat if your skin turns bright red. This is especially important if you are unable to feel pain, heat, or cold. You have a greater risk of getting burned. Activity Do not stay in bed. Staying in bed for more than 1 2 days can delay your recovery. Sit up and stand up straight. Avoid leaning forward when you sit or hunching over when you stand. ?If you work at a desk, sit close to it so you do not need to lean over. Keep your chin tucked in. Keep your neck drawn back, and keep your elbows bent at a 90-degree angle (right angle). ?Sit high and close to the steering wheel when you drive. Add lower back (lumbar) support to your car seat, if needed. Take short walks on even surfaces as soon as you are able. Try to increase the length of time you walk each day. Do not sit, drive, or clearing distribution clerk one place for more than 30 minutes at a time. Sitting or standing for long periods of time can put stress on your back. Do not drive or use heavy machinery while taking prescription pain medicine. Use proper lifting techniques. When you bend and lift, use positions that put less stress on your back: ?Bend your knees. ?Keep the load close to your body. ?Avoid twisting. Exercise regularly as told by your health care provider. Exercising helps your back heal faster and helps prevent back injuries by keeping muscles strong and flexible. Work with a physical therapist to make a safe exercise program, as recommended by your health care provider. Do any exercises as told by your physical therapist. Lifestyle Maintain a healthy weight. Extra weight puts stress on your back and makes it difficult to have good posture. Avoid activities or situations that make you feel anxious or stressed. Stress and anxiety increase muscle tension and can make back pain worse. Learn ways to manage anxiety and stress, such as through exercise. General instructions Sleep on a firm mattress in a comfortable position. Try lying on your side with your knees slightly bent. If you lie on your back, put a pillow under your knees. Keep your head and neck in a straight line with your spine (neutral position) when using electronic equipment like smartphones or pads. To do this: ?Raise your smartphone or pad to look at it instead of bending your head or neck to look down. ?Put the smartphone or pad at the level of your face while looking at the screen. Follow your treatment plan as told by your health care provider. This may include: ?Cognitive or behavioral therapy. ?Acupuncture or massage therapy. ?Meditation or yoga. Contact a health care provider if: You have pain that is not relieved with rest or medicine. You have increasing pain going down into your legs or buttocks. Your pain does not improve after 2 weeks. You have pain at night. You lose weight without trying. You have a fever or chills. You develop nausea or vomiting. You develop abdominal pain. Get help right away if: You develop new bowel or bladder control problems. You have unusual weakness or numbness in your arms or legs. You feel faint. These symptoms may represent a serious problem that is an emergency. Do not wait to see if the symptoms will go away. Get medical help right away. Call your local emergency services (911 in the [place] Do not drive yourself to the hospital. Summary Acute back pain is sudden and usually short-lived. Use proper lifting techniques. When you bend and lift, use positions that put less stress on your back. Take wqyy-glo-hwjkluh and prescription medicines only as told by your health care provider, and apply heat or ice as told. This information is not intended to replace advice given to you by your health care provider. Make sure you discuss any questions you have with your health care provider. Document Revised: 05/27/2021 Document Reviewed: 05/27/2021 [employer] Patient Education 2022 [employer]. Follow Up Care 10/03/2023 11:33:15 With:Nicolás MINA, HSE COORDINATOR-WELL DRILL OPERATOR, Jewell Alcala Address: [address] [place] [id number] When:Within 1 Month(s) [facility] [place] 10-07-2023 Note Patient Education Mental and Behavioral Health Managing Anxiety, Adult After being diagnosed with anxiety, you may be relieved to know why you have felt or behaved a certain way. You may also feel overwhelmed about the treatment ahead and what it will mean for your life. With care and support, you can manage this condition. How to manage lifestyle changes Managing stress and anxiety Stress is your body's reaction to life changes and events, both good and bad. Most stress will last just a few hours, but stress can be ongoing and can lead to more than just stress. Although stress can play a major role in anxiety, it is not the same as anxiety. Stress is usually caused by something external, such as a deadline, test, or competition. Stress normally passes after the triggering event has ended. Anxiety is caused by something internal, such as imagining a terrible outcome or worrying that something will go wrong that will devastate you. Anxiety often does not go away even after the triggering event is over, and it can become long-term (chronic) worry. It is important to understand the differences between stress and anxiety and to manage your stress effectively so that it does not lead to an anxious response. Talk with your health care provider or a counselor to learn more about reducing anxiety and stress. He or she may suggest tension reduction techniques, such as: ? Music therapy. Spend time creating or listening to music that you enjoy and that inspires you. ? Mindfulness-based meditation. Practice being aware of your normal breaths while not trying to control your breathing. It can be done while sitting or walking. ? Centering prayer. This involves focusing on a word, phrase, or sacred image that means something to you and brings you peace. ? Deep breathing. To do this, expand your stomach and inhale slowly through your nose. Hold your breath for 3?5 seconds. Then exhale slowly, letting your stomach muscles relax. ? Self-talk. Learn to notice and identify thought patterns that lead to anxiety reactions and change those patterns to thoughts that feel peaceful. ? Muscle relaxation. Taking time to tense muscles and then relax them. Choose a tension reduction technique that fits your lifestyle and personality. These techniques take time and practice. Set aside 5?15 minutes a day to do them. Therapists can offer counseling and training in these techniques. The training to help with anxiety may be covered by some insurance plans. Other things you can do to manage stress and anxiety include: ? Keeping a stress diary. This can help you learn what triggers your reaction and then learn ways to manage your response. ? Thinking about how you react to certain situations. You may not be able to control everything, but you can control your response. ? Making time for activities that help you relax and not feeling guilty about spending your time in this way. ? Doing visual imagery. This involves imagining or creating mental pictures to help you relax. ? Practicing yoga. Through yoga poses, you can lower tension and promote relaxation. Medicines Medicines can help ease symptoms. Medicines for anxiety include: ? Antidepressant medicines. These are usually prescribed for long-term daily control. ? Anti-anxiety medicines. These may be added in severe cases, especially when panic attacks occur. Medicines will be prescribed by a health care provider. When used together, medicines, psychotherapy, and tension reduction techniques may be the most effective treatment. Relationships Relationships can play a big part in helping you recover. Try to spend more time connecting with trusted friends and family members. ? Consider going to couples counseling if you have a partner, taking family education classes, or going to family therapy. ? Therapy can help you and others better understand your condition. How to recognize changes in your anxiety Everyone responds differently to treatment for anxiety. Recovery from anxiety happens when symptoms decrease and stop interfering with your daily activities at home or work. This may mean that you will start to: ? Have better concentration and focus. Worry will interfere less in your daily thinking. ? Sleep better. ? Be less irritable. ? Have more energy. ? Have improved memory. It is also important to recognize when your condition is getting worse. Contact your health care provider if your symptoms interfere with home or work and you feel like your condition is not improving. Follow these instructions at home: Activity ? Exercise. Adults should do the following: ? Exercise for at least 150 minutes each week. The exercise should increase your heart rate and make you sweat (moderate-intensity exercise). ? Strengthening exercises at least twice a week. ? Get the right amount and quality of sleep. Most adults need 7?9 hours of sleep each night. Lifestyle (Inserted Image. Rashmi (more content not included)... [facility] 10-07-2023 Hospital Discharg e instructions Patient Education 10/06/2023 23:56:56 Tension Headache, Adult Tension Headache, Adult A tension headache is a feeling of pain, pressure, or aching over the front and sides of the head. The pain can be dull, or it can feel tight. There are two types of tension headache: Episodic tension headache. This is when the headaches happen fewer than 15 days a month. Chronic tension headache. This is when the headaches happen more than 15 days a month during a 3-month period. A tension headache can last from 30 minutes to several days. It is the most common kind of headache. Tension headaches are not normally associated with nausea or vomiting, and they do not get worse with physical activity. What are the causes? The exact cause of this condition is not known. Tension headaches are often triggered by stress, anxiety, or depression. Other triggers may include: Alcohol. Too much caffeine or caffeine withdrawal. Respiratory infections, such as colds, flu, or sinus infections. Dental problems or teeth clenching. Fatigue. Holding your head and neck in the same position for a long period of time, such as while using a computer. Smoking. Arthritis of the neck. What are the signs or symptoms? Symptoms of this condition include: A feeling of pressure or tightness around the head. Dull, aching head pain. Pain over the front and sides of the head. Tenderness in the muscles of the head, neck, and shoulders. How is this diagnosed? This condition may be diagnosed based on your symptoms, your medical history, and a physical exam. If your symptoms are severe or unusual, you may have imaging tests, such as a CT scan or an MRI of your head. Your vision may also be checked. How is this treated? This condition may be treated with lifestyle changes and with medicines that help relieve symptoms. Follow these instructions at home: Managing pain Take jvxk-asg-atdjquz and prescription medicines only as told by your health care provider. When you have a headache, lie down in a dark, quiet room. If directed, put ice on your head and neck. To do this: ?Put ice in a plastic bag. ?Place a towel between your skin and the bag. ?Leave the ice on for 20 minutes, 2 3 times a day. ?Remove the ice if your skin turns bright red. This is very important. If you cannot feel pain, heat, or cold, you have a greater risk of damage to the area. If directed, apply heat to the back of your neck as often as told by your health care provider. Use the heat source that your health care provider recommends, such as a moist heat pack or a heating pad. ?Place a towel between your skin and the heat source. ?Leave the heat on for 20 30 minutes. ?Remove the heat if your skin turns bright red. This is especially important if you are unable to feel pain, heat, or cold. You have a greater risk of getting burned. Eating and drinking Eat meals on a regular schedule. If you drink alcohol: ?Limit how much you have to: ?0 1 drink a day for women who are not . ?0 2 drinks a day for men. ?Know how much alcohol is in your drink. In the [place] one drink equals one 12 oz bottle of beer (355 mL), one 5 oz glass of wine (148 mL), or one 1 oz glass of hard liquor (44 mL). Drink enough fluid to keep your urine pale yellow. Decrease your caffeine intake, or stop using caffeine. Lifestyle Get 7 9 hours of sleep each night, or get the amount of sleep recommended by your health care provider. At bedtime, remove computers, phones, and tablets from your room. Find ways to manage your stress. This may include: ?Exercise. ?Deep breathing exercises. ?Yoga. ?Listening to music. ?Positive mental imagery. Try to sit up straight and avoid tensing your muscles. Do not use any products that contain nicotine or tobacco. These include cigarettes, chewing tobacco, and vaping devices, such as e-cigarettes. If you need help quitting, ask your health care provider. General instructions Avoid any headache triggers. Keep a journal to help find out what may trigger your headaches. For example, write down: ?What you eat and drink. ?How much sleep you get. ?Any change to your diet or medicines. Keep all follow-up visits. This is important. Contact a health care provider if: Your headache does not get better. Your headache comes back. You are sensitive to sounds, light, or smells because of a headache. You have nausea or you vomit. Your stomach hurts. Get help right away if: You suddenly develop a severe headache, along with any of the following: ?A stiff neck. ?Nausea and vomiting. ?Confusion. ?Weakness in one part or one side of your body. ?Double vision or loss of vision. ?Shortness of breath. ?Rash. ?Unusual sleepiness. ?Fever or chills. ?Trouble speaking. ?Pain in your eye or ear. ?Trouble walking or balancing. ?Feeling faint or passing out. Summary A tension headache is a feeling of pain, pressure, or aching over the front and sides of the head. A tension headache can last from 30 minutes to several days. It is the most common kind of headache. This condition may be diagnosed based on your symptoms, your medical history, and a physical exam. This condition may be treated with lifestyle changes and with medicines that help relieve symptoms. This information is not intended to replace advice given to you by your health care provider. Make sure you discuss any questions you have with your health care provider. Document Revised: 12/02/2020 Document Reviewed: 12/02/2020 [employer] Patient Education 2022 [employer]. 10/06/2023 23:56:56 Urinary Tract Infection, Adult Urinary Tract Infection, Adult A urinary tract infection (UTI) is an infection of any part of the urinary tract. The urinary tract includes the kidneys, ureters, bladder, and urethra. These organs make, store, and get rid of urine in the body. An upper UTI affects the ureters and kidneys. A lower UTI affects the bladder and urethra. What are the causes? Most urinary tract infections are caused by bacteria in your genital area around your urethra, where urine leaves your body. These bacteria grow and cause inflammation of your urinary tract. What increases the risk? You are more likely to develop this condition if: You have a urinary catheter that stays in place. You are not able to control when you urinate or have a bowel movement (incontinence). You are female and you: ?Use a spermicide or diaphragm for control. ?Have low estrogen levels. ?Are . You have certain genes that increase your risk. You are sexually active. You take antibiotic medicines. You have a condition that causes your flow of urine to slow down, such as: ?An enlarged prostate, if you are male. ?Blockage in your urethra. ?A kidney stone. ?A nerve condition that affects your bladder control (neurogenic bladder). ?Not getting enough to drink, or not urinating often. You have certain medical conditions, such as: ?Diabetes. ?A weak disease-fighting system (immunesystem). ?Sickle cell disease. ?Gout. ?Spinal cord injury. What are the signs or symptoms? Symptoms of this condition include: Needing to urinate right away (urgency). Frequent urination. This may include small amounts of urine each time you urinate. Pain or burning with urination. Blood in the urine. Urine that smells bad or unusual. Trouble urinating. Cloudy urine. Vaginal discharge, if you are female. Pain in the abdomen or the lower back. You may also have: Vomiting or a decreased appetite. Confusion. Irritability or tiredness. A fever or chills. Diarrhea. The first symptom in older adults may be confusion. In some cases, they may not have any symptoms until the infection has worsened. How is this diagnosed? This condition is diagnosed based on your medical history and a physical exam. You may also have other tests, including: Urine tests. Blood tests. Tests for STIs (sexually transmitted infections). If you have had more than one UTI, a cystoscopy or imaging studies may be done to determine the cause of the infections. How is this treated? Treatment for this condition includes: Antibiotic medicine. Zwee-krf-vydjxkp medicines to treat discomfort. Drinking enough water to stay hydrated. If you have frequent infections or have other conditions such as a kidney stone, you may need to see a health care provider who specializes in the urinary tract (urologist). In rare cases, urinary tract infections can cause sepsis. Sepsis is a life-threatening condition that occurs when the body responds to an infection. Sepsis is treated in the hospital with IV antibiotics, fluids, and other medicines. Follow these instructions at home: Medicines Take qnzb-cxt-jvpfkqa and prescription medicines only as told by your health care provider. If you were prescribed an antibiotic medicine, take it as told by your health care provider. Do not stop using the antibiotic even if you start to feel better. General instructions Make sure you: ?Empty your bladder often and completely. Do not hold urine for long periods of time. ?Empty your bladder after sex. ?Wipe from front to back after urinating or having a bowel movement if you are female. Use each tissue only one time when you wipe. Drink enough fluid to keep your urine pale yellow. Keep all follow-up visits. This is important. Contact a health care provider if: Your symptoms do not get better after 1 2 days. Your symptoms go away and then return. Get help right away if: You have severe pain in your back or your lower abdomen. You have a fever or chills. You have nausea or vomiting. Summary A urinary tract infection (UTI) is an infection of any part of the urinary tract, which includes the kidneys, ureters, bladder, and urethra. Most urinary tract infections are caused by bacteria in your genital area. Treatment for this condition often includes antibiotic medicines. If you were prescribed an antibiotic medicine, take it as told by your health care provider. Do not stop using the antibiotic even if you start to feel better. Keep all follow-up visits. This is important. This information is not intended to replace advice given to you by your health care provider. Make sure you discuss any questions you have with your health care provider. Document Revised: 10/15/2020 Document Reviewed: 10/15/2020 [employer] Patient Education 2022 [employer]. 10/06/2023 23:56:56 Spondylolisthesis Spondylolisthesis Spondylolisthesis is when one of the bones in the spine (vertebra) slips forward and out of place. This commonly occurs in the lower back (lumbar spine), but it can happen anywhere along the spine. What are the causes? This condition may be caused by: A break or crack (stress fracture) in a bone in the spine from doing sports or physical activities that: ?Put a lot of strain on the bones in the lower back. ?Involve repetitive overstretching (hyperextension) of the spine. Injury (trauma) from an accident. Wear and tear that happens as a person grows older. What increases the risk? The following factors may make you more likely to develop this condition: Participating in sports or activities such as: ?Gymnastics. ?Figure skating. ?Weight lifting. ?Football. Having a condition that affects the bones, such as osteoarthritis or cancer. Being overweight. What are the signs or symptoms? Symptoms of this condition may include: Mild to severe pain in the legs, lower back, or buttocks. An abnormal way of walking (abnormal gait). Poor posture. Muscle stiffness, specifically in the hamstrings. The hamstrings are in the backs of the thighs. Weakness, numbness, or a tingling sensation in the legs. Neck pain, if the injury is at the top of the spine. Symptoms may get worse when standing, and they may temporarily get better when sitting or bending forward. In some cases, there may be no symptoms. How is this diagnosed? This condition may be diagnosed based on: Your symptoms. Your medical history. A physical exam. Imaging tests, such as: ?X-rays. ?A CT scan. ?An MRI. How is this treated? This condition may be treated with: Rest. Pain medicines. Medicines, such as NSAIDs, to help reduce swelling and discomfort. Injections of medicine, such as cortisone, to relieve pain and numbness in your back. A brace to stabilize and support your back. Physical therapy. You may work with an occupational therapist or physical therapist who can teach you how to reduce pressure on your back while you do everyday activities. Surgery. This may be needed if: ?Other treatment methods do not help your condition. ?Your symptoms do not go away after 3 6 months. ?Your ability to control your bowel or bladder changes. ?You cannot walk or stand. ?You have severe pain. Follow these instructions at home: Medicines Take plep-rlt-ovgbhuu and prescription medicines only as told by your health care provider. Ask your health care provider if the medicine prescribed to you: ?Requires you to avoid driving or using heavy machinery. ?Can cause constipation. You may need to take these actions to prevent or treat constipation: ?Drink enough fluid to keep your urine pale yellow. ?Take kdcg-ibc-idozfoa or prescription medicines. ?Eat foods that are high in fiber, such as beans, whole grains, and fresh fruits and vegetables. ?Limit foods that are high in fat and processed sugars, such as fried or sweet foods. If you have a removable brace: Wear the brace as told by your health care provider. Remove it only as told by your health care provider. Keep the brace clean. If the brace is not waterproof: ?Do not let it get wet. ?Cover it with a watertight covering when you take a bath or a shower. Activity Rest and return to your normal activities as told by your health care provider. Ask your health care provider what activities are safe for you. Ask your health care provider when it is safe to drive if you have a back brace. Work with a physical therapist to make a safe exercise program as told by your health care provider. Do exercises as told by your physical therapist. This may include exercises to strengthen your back and abdominal muscles (core exercises). Managing pain, stiffness, and swelling If directed, put ice on the affected area. To do this: ?If you have a removable brace, remove it as told by your health care provider. ?Put ice in a plastic bag. ?Place a towel between your skin and the bag. ?Leave the ice on for 20 minutes, 2 3 times a day. ?If your skin turns bright red, remove the ice right away to prevent skin damage. The risk of skin damage is higher if you cannot feel pain, heat, or cold. If directed, apply heat to the affected area as often as told by your health care provider. Use the heat source that your health care provider recommends, such as a moist heat pack or a heating pad. ?If you have a removable brace, remove it as told by your health care provider. ?Place a towel between your skin and the heat source. ?Leave the heat on for 20 30 minutes. ?If your skin turns bright red, remove the heat right away to prevent bruce. The risk of bruce is higher if you cannot feel pain, heat, or cold. General instructions Do not use any products that contain nicotine or tobacco. These products include cigarettes, chewing tobacco, and vaping devices, such as e-cigarettes. These can delay bone healing. If you need help quitting, ask your health care provider. If you are overweight, work with your health care provider and a dietitian to set a weight-loss goal that is healthy and reasonable for you. Contact a health care provider if: You have pain that gets worse or does not get better. Get help right away if: You have severe back or neck pain. Your ability to control your bowel or bladder changes. You develop weakness or numbness in your legs. You cannot stand or walk. Summary Spondylolisthesis is when one of the bones in the spine (vertebra) slips forward and out of place. This condition may be treated with rest, medicines, wearing a brace, physical therapy, or surgery. Rest and return to your normal activities as told by your health care provider. Ask your health care provider what activities are safe for you. Contact a health care provider if you have pain that gets worse or does not get better. This information is not intended to replace advice given to you by your health care provider. Make sure you discuss any questions you have with your health care provider. Document Revised: 05/03/2022 Document Reviewed: 05/03/2022 [employer] Patient Education 2022 [employer]. Follow Up Care 10/06/2023 19:11:21 With:Hever Perea Address: [address], [address] [place] [address]- [phone] Business (1) When:10/09/2023 With:Jewell Monzon Address: [address] [place] [address] [phone] Business (1) When:10/09/2023 [facility] 10-06-2023 Note ED Patient Education Note Neurology Tension Headache, Adult A tension headache is a feeling of pain, pressure, or aching over the front and sides of the head. The pain can be dull, or it can feel tight. There are two types of tension headache: ? Episodic tension headache. This is when the headaches happen fewer than 15 days a month. ? Chronic tension headache. This is when the headaches happen more than 15 days a month during a 3-month period. A tension headache can last from 30 minutes to several days. It is the most common kind of headache. Tension headaches are not normally associated with nausea or vomiting, and they do not get worse with physical activity. What are the causes? The exact cause of this condition is not known. Tension headaches are often triggered by stress, anxiety, or depression. Other triggers may include: ? Alcohol. ? Too much caffeine or caffeine withdrawal. ? Respiratory infections, such as colds, flu, or sinus infections. ? Dental problems or teeth clenching. ? Fatigue. ? Holding your head and neck in the same position for a long period of time, such as while using a computer. ? Smoking. ? Arthritis of the neck. What are the signs or symptoms? Symptoms of this condition include: ? A feeling of pressure or tightness around the head. ? Dull, aching head pain. ? Pain over the front and sides of the head. ? Tenderness in the muscles of the head, neck, and shoulders. How is this diagnosed? This condition may be diagnosed based on your symptoms, your medical history, and a physical exam. If your symptoms are severe or unusual, you may have imaging tests, such as a CT scan or an MRI of your head. Your vision may also be checked. How is this treated? This condition may be treated with lifestyle changes and with medicines that help relieve symptoms. Follow these instructions at home: Managing pain ? Take acqf-cyn-lvfazjs and prescription medicines only as told by your health care provider. ? When you have a headache, lie down in a dark, quiet room. ? If directed, put ice on your head and neck. To do this: ? Put ice in a plastic bag. ? Place a towel between your skin and the bag. ? Leave the ice on for 20 minutes, 2?3 times a day. ? Remove the ice if your skin turns bright red. This is very important. If you cannot feel pain, heat, or cold, you have a greater risk of damage to the area. ? If directed, apply heat to the back of your neck as often as told by your health care provider. Use the heat source that your health care provider recommends, such as a moist heat pack or a heating pad. ? Place a towel between your skin and the heat source. ? Leave the heat on for 20?30 minutes. ? Remove the heat if your skin turns bright red. This is especially important if you are unable to feel pain, heat, or cold. You have a greater risk of getting burned. Eating and drinking ? Eat meals on a regular schedule. ? If you drink alcohol: ? Limit how much you have to: ? 0?1 drink a day for women who are not . ? 0?2 drinks a day for men. ? Know how much alcohol is in your drink. In the [place] one drink equals one 12 oz bottle of beer (355 mL), one 5 oz glass of wine (148 mL), or one 1? oz glass of hard liquor (44 mL). ? Drink enough fluid to keep your urine pale yellow. ? Decrease your caffeine intake, or stop using caffeine. Lifestyle ? Get 7?9 hours of sleep each night, or get the amount of sleep recommended by your health care provider. ? At bedtime, remove computers, phones, and tablets from your room. ? Find ways to manage your stress. This may include: ? Exercise. ? Deep breathing exercises. ? Yoga. ? Listening to music. ? Positive mental imagery. ? Try to sit up straight and avoid tensing your muscles. ? Do not use any products that contain nicotine or tobacco. These include cigarettes, chewing tobacco, and vaping devices, such as e-cigarettes. If you need help quitting, ask your health care provider. General instructions ? Avoid any headache triggers. Keep a journal to help find out what may trigger your headaches. For example, write down: ? What you eat and drink. ? How much sleep you get. ? Any change to your diet or medicines. ? Keep all follow-up visits. This is important. Contact a health care provider if: ? Your headache does not get better. ? Your headache comes back. ? You are sensitive to sounds, light, or smells because of a headache. ? You have nausea or you vomit. ? Your stomach hurts. Get help right away if: ? You suddenly develop a severe headache, along with any of the following: ? A stiff neck. ? Nausea and vomiting. ? Confusion. ? Weakness in one part or one side of your body. ? Double vision or loss of vision. ? Shortness of breath. ? Rash. ? Unusual sleepiness. ? Fever or chills. ? Trouble speaking. ? Pain in your eye or ear. ? Trouble walking or balancing. ? Feeling (more content not included)... [facility] 05-15-2023 Hospital Discharg e instructions Patient Education 05/15/2023 13:26:33 Managing Depression, Adult Managing Depression, Adult Depression [...] pray, or go to a place of bahai. Do some deep breathing. To do this, [...] everything, but you can change your reaction. Adding humor [...] sugars, or salt (sodium). General instructions Take rqsv-qkx-iviavmi and prescription medicines only as told by [...] (ADAA): www.adaa.org Mental Health Mira: www.mentalhealthamerica.net National [place] on Mental Illness: www.fazal.org Contact a health care provider if: You [...] or have thoughts about taking your own life, get help right away. Go to your nearest emergency department or: Call your local emergency services (911 in the [place] Call a suicide crisis helpline, such as the National Suicide Prevention Lifeline at or 833 in the [place] This is open 24 hours a day in the [place] Text the Crisis Text Line at 038329 (in the [place] Summary If you are diagnosed with depression, preparing yourself to manage your symptoms is a good way to feel positive about your future. Work with your health care provider on a management plan that includes stress reduction techniques, medicines (if applicable), therapy, and healthy lifestyle habits. [...] provider. Document Revised: 09/28/2021 Document Reviewed: 01/14/2020 [employer] Patient Education 2022 [employer]. 05/15/2023 13:26:25 Managing Anxiety, Adult Managing Anxiety, Adult After being diagnosed with anxiety, you may be relieved to know why you have felt or behaved a certain way. You may also feel overwhelmed about the treatment ahead and what it will mean for your life. With care and support, you can manage this condition. How to manage lifestyle changes Managing stress and anxiety Stress is your body's reaction to life changes and events, both good and bad. Most stress will last just a few hours, but stress can be ongoing and can lead to more than just stress. Although stress can play a major role in anxiety, it is not the same as anxiety. Stress is usually caused by something external, such as a deadline, test, or competition. Stress normally passes after the triggering event has ended. Anxiety is caused by something internal, such as imagining a terrible outcome or worrying that something will go wrong that will devastate you. Anxiety often does not go away even after the triggering event is over, and it can become long-term (chronic) worry. It is important to understand the differences between stress and anxiety and to manage your stress effectively so that it does not lead to an anxious response. Talk with your health care provider or a counselor to learn more about reducing anxiety and stress. He or she may suggest tension reduction techniques, such as: Music therapy. Spend time creating or listening to music that you enjoy and that inspires you. Mindfulness-based meditation. Practice being aware of your normal breaths while not trying to control your breathing. It can be done while sitting or walking. Centering prayer. This involves focusing on a word, phrase, or sacred image that means something to you and brings you peace. Deep breathing. To do this, expand your stomach and inhale slowly through your nose. Hold your breath for 3 5 seconds. Then exhale slowly, letting your stomach muscles relax. Self-talk. Learn to notice and identify thought patterns that lead to anxiety reactions and change those patterns to thoughts that feel peaceful. Muscle relaxation. Taking time to tense muscles and then relax them. Choose a tension reduction technique that fits your lifestyle and personality. These techniques take time and practice. Set aside 5 15 minutes a day to do them. Therapists can offer counseling and training in these techniques. The training to help with anxiety may be covered by some insurance plans. Other things you can do to manage stress and anxiety include: Keeping a stress diary. This can help you learn what triggers your reaction and then learn ways to manage your response. Thinking about how you react to certain situations. You may not be able to control everything, but you can control your response. Making time for activities that help you relax and not feeling guilty about spending your time in this way. Doing visual imagery. This involves imagining or creating mental pictures to help you relax. Practicing yoga. Through yoga poses, you can lower tension and promote relaxation. Medicines Medicines can help ease symptoms. Medicines for anxiety include: Antidepressant medicines. These are usually prescribed for long-term daily control. Anti-anxiety medicines. These may be added in severe cases, especially when panic attacks occur. Medicines will be prescribed by a health care provider. When used together, medicines, psychotherapy, and tension reduction techniques may be the most effective treatment. Relationships Relationships can play a big part in helping you recover. Try to spend more time connecting with trusted friends and family members. Consider going to couples counseling if you have a partner, taking family education classes, or going to family therapy. Therapy can help you and others better understand your condition. How to recognize changes in your anxiety Everyone responds differently to treatment for anxiety. Recovery from anxiety happens when symptoms decrease and stop interfering with your daily activities at home or work. This may mean that you will start to: Have better concentration and focus. Worry will interfere less in your daily thinking. Sleep better. Be less irritable. Have more energy. Have improved memory. It is also important to recognize when your condition is getting worse. Contact your health care provider if your symptoms interfere with home or work and you feel like your condition is not improving. Follow these instructions at home: Activity Exercise. Adults should do the following: ?Exercise for at least 150 minutes each week. The exercise should increase your heart rate and make you sweat (moderate-intensity exercise). ?Strengthening exercises at least twice a week. Get the right amount and quality of sleep. Most adults need 7 9 hours of sleep each night. Lifestyle Eat a healthy diet that includes plenty of vegetables, fruits, whole grains, low-fat dairy products, and lean protein. ?Do not eat a lot of foods that are high in fats, added sugars, or salt (sodium). Make choices that simplify your life. Do not use any products that contain nicotine or tobacco. These products include cigarettes, chewing tobacco, and vaping devices, such as e-cigarettes. If you need help quitting, ask your health care provider. Avoid caffeine, alcohol, and certain aytc-xwc-bselkof cold medicines. These may make you feel worse. Ask your pharmacist which medicines to avoid. General instructions Take vouq-efx-xpesrpo and prescription medicines only as told by your health care provider. Keep all follow-up visits. This is important. Where to find support You can get help and support from these sources: Self-help groups. Online and community organizations. A trusted spiritual leader. Couples counseling. Family education classes. Family therapy. Where to find more information You may find that joining a support group helps you deal with your anxiety. The following sources can help you locate counselors or support groups near you: Mental Health [place]: www.mentalhealthamerica.net Anxiety and Depression Association of [place] (ADAA): www.adaa.org National [place] on Mental Illness (FAZAL): www.fazal.org Contact a health care provider if: You have a hard time staying focused or finishing daily tasks. You spend many hours a day feeling worried about everyday life. You become exhausted by worry. You start to have headaches or frequently feel tense. You develop chronic nausea or diarrhea. Get help right away if: You have a racing heart and shortness of breath. You have thoughts of hurting yourself or others. If you ever feel like you may hurt yourself or others, or have thoughts about taking your own life, get help right away. Go to your nearest emergency department or: Call your local emergency services (138 in the [place] Call a suicide crisis helpline, such as the National Suicide Prevention Lifeline at or 040 in the [place] This is open 24 hours a day in the [place] Text the Crisis Text Line at 234654 (in the [place] Summary Taking steps to learn and use tension reduction techniques can help calm you and help prevent triggering an anxiety reaction. When used together, medicines, psychotherapy, and tension reduction techniques may be the most effective treatment. Family, friends, and partners can play a big part in supporting you. This information is not intended to replace advice given to you by your health care provider. Make sure you discuss any questions you have with your health care provider. Document Revised: 09/28/2021 Document Reviewed: 06/26/2021 [employer] Patient Education 2022 [employer]. Follow Up Care 05/14/2023 10:08:29 With:Nicolás MINA, HSE COORDINATOR-WELL DRILL OPERATOR, Jewell Alcala Address: [address] [place] [id number] When:Within 1 Month(s) Comments:[facility] [place] 05-10-2023 Note EMERGENCY GENERAL SURGERY CONSULT / H&P Patient Name: FABRIZIO CARBALLO Admission Date: 05/08/2023 HISTORY OF PRESENT ILLNESS FABRIZIO CARBALLO is a 22 Years-old Female with no reported past medical history presents to the ED complaining of abdominal pain. Pt states sudden onset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 [address]- [place] Personnel Name: Nicolás MSN, HSE COORDINATOR-WELL DRILL OPERATOR, Jewell L. Address: Address: [address] [place] [place] [address]- [place] Name: Linda Trujillo Name: Ramona RÍOS Address: Address: [address] [place] [address], [address] [address]- [place] Personnel Name: Nicolás MSN, HSE COORDINATOR-WELL DRILL OPERATOR, Jewell L. Address: Address: [address] [place] [address]- [place] Name: Linda Trujillo Name: Ramona RÍOS Address: Address: [address] [place] [address], [facility] [address] Personnel Name: Nicolás MSN, HSE COORDINATOR-WELL DRILL OPERATOR, Jewell L. Address: Address: [address] Name: Linda Trujillo Name: Ramona RÍOS Address: Address: [address] [place] [address], [facility] [address] Personnel Name: Nicolás MINA, HSE COORDINATOR-WELL DRILL OPERATOR, Jewell L. Address: Address: [address] [place] [phone] Name: Linda Trujillo Name: Ramona RÍOS Address: Address: [address] [place] [address], [facility] [address] Personnel Name: Nicolás MNIA, HSE COORDINATOR-WELL DRILL OPERATOR, Jewell L. Address: Address: [address] [place] [phone] Name: Linda Trujillo Name: Ramona RÍOS Address: Address: [address] [place] [address], [facility] [address] Personnel Name: Nicolás MINA, HSE COORDINATOR-WELL DRILL OPERATOR, Jewell L. Address: Address: [address] [place] [phone] Name: Linda Trujillo Name: Ramona RÍOS Address: Address: [address] [place] [address], [facility] [address] Personnel Name: Nicolás MINA, HSE COORDINATOR-WELL DRILL OPERATOR, Jewell L. Address: Address: [address] Name: Linda Trujillo Name: Ramona RÍOS Address: Address: [address] [place] [address], [facility] [address] Reason for Visit (unrecogniz ed section and content) Reason Comments New patient, to establish relationship Specialty Diagnoses / Procedures Referred By Arthur torres Referred To Contact Oral Surgery Diagnoses Caries Jayme Marquez, DDS [address] [place] [address] [facility] ORAL SURGERY [address] [place] [address] Referral ID Status Reason Start Date Expiration Date V isits Requested Visits Authorized [id number] Authorized 09/29/2021 09/29/2022 3 3 Reason Onset Date Comments Pre-surgical Evaluation 02/15/2022 Not avai lable Reason Onset Date Comments Pre-surgical Evaluation 02/23/2022 Pre-op C OVID testing not needed Specialty Diagnoses / Procedures Referred By Contac t Referred To Contact Ambulatory Surgery Diagnoses 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 [K02.9] Procedures ANESTHESIA, INTRAORAL PROC, W/BX; NOS UNLISTED PROCEDURE, DENTOALVEOLAR STRUCTURES EXTRACTION, TOOTH - #2, 15, 18, 19, 20, 30 Candy Mora, [place] [address] [place] [address] Phone: [phone] Referral ID Status Reason Start Date Expiration Date Visits Re quested Visits Authorized [id number] 3 3 Reason Comments Post Op Check [...] bupivacaine (MARCAINE) 10 mL, lidocaine-epinephrine (XYLOCAINE) 1 %-1:[id number] 10 mL, dose administered = 18 mL [...] and content) DATE CREATED AUTHOR 03/09/2022 [facility] DATE CREATED AUTHOR AUTHOR'S ORGANIZ ATION 03/15/2022 [facility] DATE CREATED AUTHOR AUTHOR'S ORGANIZ ATION 05/24/2023 [facility] DATE CREATED AUTHOR AUTHOR'S ORGANIZ ATION 09/18/2023 [facility] dical [facility] DATE CREATED AUTHOR AUTHOR'S ORGANIZ ATION 10/09/2023 [facility] DATE CREATED AUTHOR AUTHOR'S ORGANIZ ATION 11/11/2023 [facility] DATE CREATED AUTHOR AUTHOR'S ORGANIZ ATION 03/14/2024 [facility] FOR RECORDS PERTAINING TO PATIENTS [...] BE BASED ON THE PRIMARY CLINICAL RECORDS. [facility]. provides no warranty or guarantee of the accuracy or completeness of information in this document.
[2024-03-15] MEDS: CEPHALEXIN 500 MG CAPSULE PO (20:11)
[2024-03-15 20:13] VITALS: BP 135/84; PULSE 65; O2SAT 100
[2024-03-18 21:06] LABS: Neisseria gonorrhoeae, NAA Negative (Negative)
== END 2024-03-15 20:13 | disposition home or self-care (01) ==
PROVIDERS: Personal Emergency Response Attendant; Emergency Provider Emergency Medicine
DX: N39.0 Urinary tract infection, site not specified (principal); F17.200 Nicotine dependence, unspecified, uncomplicated; N89.8 Other specified noninflammatory disorders of vagina
CPT/HCPCS: 36415; 81001; 84703; 87086; 87491; 87591; 99284

== ENCOUNTER 2024-05-01 09:08 | Emergency (ER) | payer OTHER, SELFPAY ==
[2024-05-01 09:18] VITALS: BP 137/83; PULSE 107; TEMP 36.6; O2SAT 100; BMI 29.1
--- NOTE | 2024-05-01 09:25 | PC.NURSE ---
Patient reports having vaginal itching. Was recently treated for yeast infection with no relief.
--- OUTSIDE RECORDS SUMMARY | 2024-05-01 09:26 | XMS_ITS | CCD ---
Author Organization [facility] CliniSysd Care Team Providers Care Inward Toll Operator Name Role Phone Unavailable Primary Care Provider UnavailKimberly Gao Primary Care Physician Linda Trujillo Unavailable Unavailable Ramona BIRMINGHAM Unavailable Unavailable Primary Care Provider Unavailinge lyles Unavailable Primary Care Provider UnavailEstiven Haas Primary Care Physician [phone] NAN MCGRAW Attending Unavailable NAN MCGRAW Admitting Unavailable NAN MCGRAW Primary Care Unavailable BEBETO, DR JUSTICE Admitting Unavailable BEBETO, DR JUSTICE Consulting Unavailable MISC, DR SORENOSN Primary Care Unavailable BEBETO, DR JUSTICE Attending Unavailable ZIEBER, DR LUIS Springer Consulting Unavailable MISC, DR SORENSON Primary Care Unavailable KARASIK, DR FOX Attending Unavailable KARASIK, DR FOX Admitting Unavailable KARASIK, DR FOX Consulting Unavailable WEST, DR DEVIN Jmaes Consulting Unavailable BEBETO, DR JUSTICE Consulting Unavailable [...] Unavailable REQUEST, DR JIMENEZ LISTED Consulting Unavaila mili MCGRAW, NAN Primary Care Unavailable BEBETO, DR JUSTICE [...] Admitting Unavailable MARCIA JUAREZ Primary Care Physician [phone] Jewell Monzon Primary Care Physician Jewell Monzon Primary Care Physician [phone] ANDREY ARTHUR Attending Unavailable NATALY DUNCAN Attending Unavailable ANDREY ARTHUR Attending Unavailable Jewell Monzon Attending Unavailable Andrea Faustin Attending Unavailable Nicolás, LEOPOLDO, LINING FOLDER-MICROFILM CLERK Jewell Alcala Attending U Jamie Mcneil Admitting Unavailable Claridge, Jamie A Attending Unavailable DO Andrea FaustinGale Attending Unavailable DO Andrea Faustin Attending Unavailable Adolph Aleman Attending Unavailable Earline Bond Attending Unavailable Nicolás, MSN, [facility] Jewell L. Admitting U june Monzon, MSN, [facility] Jewell L. Attending U Smitha Ruiz Attending Unavailable Nicolás, MSN, [facility] Jewell L. Attending U june Monzon, MSN, [facility] Jewell L. Attending U navailedwina NON STAFF Attending Unavailable NON STAFF Admitting Unavailable Ramona Monsivais Primary Care Unavailable MUSTAPHA Subramanian Attending UnavailCamryn Matthew Attending Unavailable MUSTAPHA BARNARD Attending Unavailinge Moznon, MSN, [facility] Jewell L. Attending U june Monzon, MSN, [facility] Jewell LGale Attending U june Monzon, MSN, [facility] Jewell Alcala Attending U june Monzon, MSN, [facility] Jewell Alcala Attending U Camryn Gardner Attending Unavailable Ramona Monsivais MD Primary Care Provider NON STAFF Attending Provider Unavailable Andrey Arthur DO Attending Provider Allergies Allergy Classification Reported Allergen(s) Allergy Type Date of Onset Reaction(s) Facility (20 sources) Acetaminophen / HYDROcodone; Translations: [acetaminophen-hy drocodone] Drug Allergy Eruption of skin (disorder) [facility] (20 sources) ARIPiprazole lauroxil; Translations: [aripiprazole] Drug Allergy Hallucinations (finding) [facility] (20 sources) meloxicam; Translations: [meloxicam] Drug Allergy 01-20-20 Constipation (disorder) [facility] (11 sources) ARIPiprazole; Translations: [ARIPIPRAZOLE] Drug Allergy 03-15-20 17 Hallucinations [facility] Work Phone: (9 sources) meloxicam Drug Allergy 01-20-20 Constipation [facility] (1 source) Acetaminophen / HYDROcodone Drug Allergy [facility] (1 source) ARIPiprazole Drug Allergy [facility] (1 source) meloxicam Drug Allergy [facility] (2 sources) Acetaminophen Drug Allergy 03-15-20 [facility] Rep[facility] (1 source) ARIPiprazole Drug Allergy 03-15-20 [facility] Rep[facility] (2 sources) HYDROcodone Drug Allergy 03-15-20 [facility] Rep[facility] Medications Current Medications Medication Drug Class(es) [...] 03/02/2022 03/05/2022 Active Start: 02-04-2022 End: 02-05-2022 [place] 325 mg-5 mg oral table t 1 [...] day(s), # 20 tab(s), Refills(s) 0, Pharmacy: [facility]/pharmacy #[id number], 165, cm, 02/04/22 10:26:00 EST, [...] oral solution (1 source) alpha-Adrenergic Agonist, Uncompetitive E-opvmxw-R-aspar patel Receptor Antagonist, Sigma-1 Agonist Start: 05-02-2023 take 5 mL by mouth four times daily for cough and congestion Bromfed DM oral syrup 5 mL, Oral, QID for cough and congestion, 200 mL, Refill(s) 0, [facility], 165, cm, 05/02/23 8:22:00 EST, Height/Length [...] day(s), # 14 cap(s), Refills(s) 0, Pharmacy: [facility], 165.1, cm, 10/06/23 19:19:00 EDT, Height/Length Dosing, 83, kg, 10/06/23 19:19:00 EDT, Weight Dosing Start Date: 10/06/23 Stop Date: 10/13/23 Status: Ordered chlorhexidine gluconate 1.2 mg/ml mouthwash (5 sources) Start: 03-02-2022 End: 03-16-2022 chlorhexidine (Peridex) 0.12 % oral solution Take 15 mL by mouth 2 times daily (after meals) for 14 days. Swish for 30 seconds and lightly spit. Do not swallow 473 mL 0 03/02/2022 Active Start: 03-02-2022 chlorhexidine (PERIDEX) 0.12 % oral solution Start: 04-12-2017 End: 03-27-2020 take 1 mL by mouth twice daily Chlorhexidine Gluconate (Peridex) 0.12 % mouthwash Discontinued 15 ML MUCOUS MEM Twice daily April 12, 2017 12:00am March 27, 2020 6:15pm rinse mouth for at least 30 secs docusate sodium 100 mg oral capsule (1 source) Start: 05-09-2023 End: 05-19-2023 take 1 capsule by mouth twice daily Colace 100 mg Cap 100 mg = 1 cap(s), Oral, BID, X 10 day(s), # 20 cap(s), Refills(s) 0, Pharmacy: [facility], 165.1, cm, 05/08/23 23:08:00 EST, Height/Length [...] day(s), # 60 cap(s), Refills(s) 0, Pharmacy: [facility], 165.1, cm, 10/09/23 9:54:00 EDT, Height/Length [...] day(s), # 21 tab(s), Refills(s) 0, Pharmacy: [facility], 165, cm, 05/02/23 8:22:00 EST, Height/Length [...] day(s), # 20 tab(s), Refills(s) 0, Pharmacy: [facility], 165.1, cm, 10/09/23 9:54:00 EDT, Height/Length Dosing, 82.1, kg, 10/09/23 9:54:00 EDT, Weight Dosing Start Date: 10/09/23 Stop Date: 10/19/23 Status: Ordered Start: 02-19-2022 take 1 tablet by renita th twice daily as needed for pain naproxen 500 mg oral enteric coated tablet 500 mg = 1 tab(s), Oral, BID, PRN Pain, # 10 tab(s), Refills(s) 0, Pharmacy: [facility]/pharmacy #[id number], 165, cm, 02/19/22 5:46:00 EST, [...] day(s), # 12 tab(s), Refills(s) 0, Pharmacy: [facility], 165.1, cm, 05/08/23 23:08:00 EST, Height/Length [...] day(s), # 20 tab(s), Refills(s) 0, Pharmacy: [facility], 165.1, cm, 10/09/23 9:54:00 EDT, Height/Length Dosing, 82.1, kg, 10/09/23 9:54:00 EDT, Weight Dosing Start Date: 10/09/23 Stop Date: 10/17/23 Status: Ordered Jzjgedxw-Buh-Yl-Fa () 1 mg Tablet (1 source) Start: 03-27-2020 take 1 tablet by mouth once daily Opsazvwc-Hbr-Ok-Fa () 1 mg Tablet Active 1 TAB PO Daily March 27, 2020 12:00am Multivitamins (6 sources) Start: 12-03-2019 take 1 [...] Daily, # 90 cap(s), Refills(s) 1, Pharmacy: [facility]/pharmacy #[id number], 165, cm, 07/10/22 14:49:00 EDT, Height/Length Dosing, 90.5, kg, 10/16/22 14:17:00 EDT, Weight Dosing Start Date: 10/16/22 Status: Ordered Start: 07-11-2022 take 1 capsule by [facility] once daily propranolol 80 mg Cap-ER 80 mg = 1 cap(s), Oral, Daily, # 90 cap(s), Refills(s) 0, Pharmacy: [facility]/pharmacy #[id number], 165, cm, 07/10/22 14:49:00 EDT, Height/Length Dosing, 92, kg, 07/10/22 14:49:00 EDT, Weight Dosing Start Date: 07/11/22 Status: Ordered sertraline 25 mg oral tablet (4 sources) Serotonin Reuptake Inhibitor Start: 05-15-2023 take 1 tablet by mouth once daily sertraline 25 mg Tab 25 mg = 1 tab(s), Oral, Daily, # 30 tab(s), Refills(s) 0, Pharmacy: [facility], 168, cm, 05/15/23 13:07:00 EST, Height/Length [...] Status: Ordered SUMAtriptan 25 mg oral tablet (12 sources) Serotonin-1b and Serotonin-1d Receptor Agonist Start: 11-28-2023 SUMAtriptan 25 mg Tab 25 mg = 1 tab(s), Oral, Daily, PRN for migraine headache, may repeat dose after 2 hours up to a maximum of 200 mg in 24 hours, # 9 tab(s), Refills(s) 1, Pharmacy: [facility], 165.1, cm, 10/09/23 9:54:00 EDT, Height/Length Dosing, 82.1, kg, 10/09/23 9:54:00 EDT, Weight Dosing Start Date: 11/28/23 Status: Ordered Start: 10-16-2022 SUMAtriptan 25 mg Tab 25 mg = 1 tab(s), Oral, Daily, PRN for migraine headache, may repeat dose after 2 hours up to a maximum of 200 mg in 24 hours, # 9 tab(s), Refills(s) 1, Pharmacy: [facility]/pharmacy #[id number], 165, cm, 07/10/22 14:49:00 EDT, Height/Length Dosing, 90.5, kg, 10/16/22 14:17:00 EDT, Weight Dosing Start Date: 10/16/22 Status: Ordered Start: 07-11-2022 SUMAtriptan 25 mg Tab 25 mg = 1 tab(s), Oral, Daily, PRN for migraine headache, may repeat dose after 2 hours up to a maximum of 200 mg in 24 hours, # 9 tab(s), Refills(s) 0, Pharmacy: [facility]/pharmacy #[id number], 165, cm, 07/10/22 14:49:00 EDT, [...] Onset: 01-16-2022 04-26-2020 Episodic Headache; including migraine (20 sources) Migraine; Translations: [Migraine, unspecified, not intractable, without status migrainosus] Onset: 10-16-2022 Chronic Headache; including migraine (20 sources) Chronic headache disorder; Translations: [Headache] Onset: 10-06-2023 07-12-2022 Episodic Immunizations and screening for infectious disease (4 sources) Encounter for screening for infections with a predominantly sexual mode of transmission; Translations: [ENC SCREEN INFECTIONS SEXL TRANSMS] Onset: 12-15-2021 Episodic Malaise and fatigue (13 sources) Fatigue; Translations: [Other fatigue] Onset: 05-15-2023 Episodic Mood disorders (20 sources) Bipolar disorder; Translations: [Episodic mood disorder] Onset: 10-11-2014 05-24-2020 Chronic Other acquired deformities (1 source) Spondylolisthesis; Translations: [Spondylolisthesis, site unspecified] Onset: 10-06-2023 Episodic Other acquired deformities (1 source) Spondylolysis; Translations: [Spondylolysis, site unspecified] Onset: 10-06-2023 Episodic Other acquired deformities (9 sources) Lumbar spondylolisthesis; Translations: [Spondylolisthesis, lumbar region] [...] Chronic Other nutritional; endocrine; and metabolic disorders (18 sources) Obesity caused by energy imbalance 10-16-2022 [...] parts of digestive tract] Onset: 05-15-2023 Episodic Skull and face fractures (1 source) Fracture of mandible; Translations: [Fracture of mandible, unspecified, initial encounter for closed fracture] 02-28-2023 Episodic Comment on above: Problem List clean-u p per request of Phys. EHR Cmte Spondylosis; intervertebral disc disorders; other back problems (12 sources) Spasm of back muscles; Translations: [Muscle spasm of back] Onset: 04-23-2023 Episodic Substance-related disorders (10 sources) Smoker 10-06-2023 Chronic Comment on above: [...] applicable or unspecified; Translations: [MAT CARE OTH FL FTL GRTH 3RD TM UNS] Onset: 04-12-2021 [...] applicable or unspecified; Translations: [MAT CARE OTH FL FTL GRTH UNS TM UNS] Onset: 03-23-2021 [...] Test Name Value Interpretation Reference Range Facility Choriogonadotropin.beta subu nit [Units/volume] in Serum or PlasmaOrdered By: Andrey Arthur on 04-29-2024 HCG.beta subunit Qn Choriogonadotropin.b eta subunit [Units/volume] in Serum or Plasma [facility] Comment on above: Approximate Approxim ate hCG Gestational Age Range (mIU/ml) (weeks)0.2-1 5-50 1-2 50-500 2-3 100-5,000 3-4 500-10,000 4-5 1,000-50,000 5-6 10,000-100,000 6-8 15,000-200,000 8-12 10,000-100,000 Urine Cultureon 03-15-2024 Bacteria identified Cx Nom (U) No Growth 2 Days PERFORMED BY: [place] [address] PATHOLOGIST SALES FLOOR MANAGER MARY KATE GU M.D. Normal [facility] Comment on above: Performed By: #### C UU #### [address] Urine cultureOrdered By: Herminio Clemente on 03-15-2024 Bacteria identified Cx Nom (U) Urine culture [facility] Interdisciplinary Note - Soc ial Workeron 03-03-2024 Interdisciplinary Note - Help Desk Support Specialist Interdisciplinary Note - Help Desk Support Specialist Consult for positive depression screen received. SW attempted to contact patient to discuss the results of her screen, however the number on file is not in service. Normal [facility] Nonvisit Note - PTon 024 Nonvisit Note - PT Nonvisit Note - PT Chart reviewed with eval prepped for scheduled eval. KK Normal [facility] Ambulatory Visit Summaryon 0 10-09-2023 Ambulatory Visit Summary Ambulatory Visit Summary FABRIZIO CARBALLO :2000 Visit Date:10/09/2023 Ambulatory Visit Instructions Your Diagnosis Anterolisthesis of lumbar spine Low back pain Depression ROBERT (generalized anxiety disorder) Class 1 obesity due to excess calories in adult BMI 30.0-30.9,adult Your Care Team Attending Physician - Nicolás MINA, Jewell CHRISTOPHER Primary Care Physician - Nicolás MINA, Jewell CHRISTOPHER This Is Your Medications List cephalexin (cephalexin [...] Following Appointments Follow Up with Nicolás MINA, Jewell CHRISTOPHER When: In 1 month Where: [address] [place] [phone] Medications What How Much When Instructions New duloxetine (Cymbalta 20 mg oral delayed release capsule) 1 Capsules By Mouth 2 times a day Duration: 30 Days Pickup at [facility] New predniSONE (predniSONE 10 mg Tab) 10 Milligram By Mouth As Directed Duration: 8 Days 4 QDx2 days; 3 QDx2 d; 2 QDx2 d; 1 QDx2d; d/ c Pickup at [facility] Unchanged cephalexin (cephalexin 500 mg Cap) 1 Capsules By Mouth Every 12 hours Duration: 7 Days Unchanged naproxen (naproxen 500 mg Tab) 1 Tablets By Mouth 2 times a day Duration: 10 Days Pickup at [facility] Pharmacy Information [facility]: [address], [place] [id number] [phone] Allergies Abilify (Hallucinations) meloxicam (Constipation) Vicodin (Rash) [...] breathing. To (more content not included)... Normal [facility] C Urineon 10-09-2023 Bacteria identified Cx Nom [...] Locations R1: This test was performed at: [facility], [address] [place] [address], [address] , , [facility] Comment on above: Performed By: #### 2 [id number] #### [facility] [address] [place] [address] Family Medicine Office/Clini c Noteon 10-09-2023 Family [...] DEXA: NA Labs: 10/06/2023 List of Providers: IV TECHNICIAN: Dr Arthur counseling: Family life counseling LABS [...] other medications. She was referred to a materials specialist but was unable to secure an [...] an x-ray and a CT scan at [facility] yesterday, 10/08/2023. She has not undergone physical [...] lumbar region) An x-ray was performed at [facility], revealing grade 1 anterolisthesis of the lumbar spine. Muscle relaxants and naproxen were administered. Additionally, a urinary tract infection was identified, fo (more content not included)... Normal [facility] Comment on above: Result Comment: Elec tronically Signed By: Nicolás MINA, LINING FOLDER-MICROFILM CLERK, Jewell Alcala\.br\Date and Time Signed: 10/09/23 19:19 EDT\.br\Electronically Co-Signed By: Joann Mullins\Date and Time Co-Signed: 10/09/23 13:48 EDT ED Note-Physicianon 10-07-19 ED Note-Physician ED Note-Physician Basic Information Time Seen: Colby CROSS, Charlie Bishop. 10/06/2023 19:26 Chief Complaint pt states back [...] and symmetry. No ataxia with finger-nose or iwsb-jg-kass. Intact sensation of bilateral upper and lower [...] naproxen. Did provide her with Dr. Perea materials specialist for further evaluation of her spondylolisthesis. [...] day(s), # 14 cap(s), Refills(s) 0, Pharmacy: [facility], 165.1, cm, 10/06/23 19:19:00 EDT, Height/Length [...] Stop date (more content not included)... Normal [facility] Comment on above: Result Comment: Elec [...] mGy = na DAP = na [facility] XR Spine Lumbosacral 2 or 3 Viewson [...] mGy = na DAP = na [facility] BMPon 10-06-2023 Creatinine [Mass/Vol] 0.8 mg/dL Normal 0.5-1.3 [facility] Comment on above: Performed By: #### 2 [id number] #### [facility] [address] [place] [address] Glucose [Mass/Vol] 82 mg/dL Normal 55-199 [facility] Comment on above: Performed By: #### 2 [id number] #### [facility] [address] [place] [address] Urea nitrogen [Mass/Vol] 10 mg/dL Normal 5-21 [facility] Comment on above: Performed By: #### 2 [id number] #### [facility] [address] [place] [address] Urea nitrogen/Creatinine [Mass ratio] 12 No Units Normal 10-20 [facility] Comment on above: Performed By: #### 2 [id number] #### [facility] [address] [place] [address] Anion gap [Moles/Vol] 11 mmol/L Normal 6-16 [facility] Comment on above: Performed By: #### 2 [id number] #### [facility] [address] [place] [address] Calcium [Mass/Vol] 9.7 mg/dL Normal 8.9-11.1 [facility] Comment on above: Performed By: #### 2 [id number] #### [facility] [address] [place] [address] Chloride [Moles/Vol] 106 mmol/L Normal 101-111 [facility] Comment on above: Performed By: #### 2 [id number] #### [facility] [address] [place] [address] CO2 [Moles/Vol] 25 mmol/L Normal 21-31 [facility] Comment on above: Performed By: #### 2 [id number] #### [facility] [address] [place] [address] Potassium [Moles/Vol] 3.8 mmol/L Normal 3.5-5.3 [facility] Comment on above: Performed By: #### 2 [id number] #### [facility] [address] [place] [address] Sodium [Moles/Vol] 138 mmol/L Normal 135-145 [facility] Comment on above: Performed By: #### 2 [id number] #### [facility] [address] [place] [address] CBC w/ Auto Diffon 4 Basophils/100 WBC (Bld) 0.7 % Normal 0.0-2.0 [facility] Comment on above: Performed By: #### 2 [id number] #### [facility] [address] [place] [address] Basophils/Leukocytes Auto (Bld) [Pure # fraction] 0.0 E9/L Normal 0.0-0.2 [facility] Comment on above: Performed By: #### 2 [id number] #### [facility] [address] [place] [address] Eosinophils (Bld) [#/Vol] 0.2 E9/L Normal 0.0-0.5 [facility] Comment on above: Performed By: #### 2 [id number] #### [facility] [address] [place] [address] Eosinophils/100 WBC (Bld) 3.2 % Normal 0.0-8.0 [facility] Comment on above: Performed By: #### 2 [id number] #### [facility] [address] [place] [address] Erythrocyte distribution width (RBC) [Ratio] 17.0 % High 10.9-14.2 [facility] Comment on above: Performed By: #### 2 [id number] #### [facility] [address] [place] [address] Hematocrit (Bld) [Volume fraction] 33.9 % Low 34.0-46.0 [facility] Comment on above: Performed By: #### 2 [id number] #### [facility] [address] [place] [address] Hemoglobin (Bld) [Mass/Vol] 11.1 g/dL Low 12.0-16.0 [facility] Comment on above: Performed By: #### 2 [id number] #### [facility] [address] [place] [address] Lymphocytes (Bld) [#/Vol] 1.5 E9/L Normal 1.0-4.0 [facility] Comment on above: Performed By: #### 2 794784 #### [facility] [address] [place] [address] Lymphocytes/100 WBC (Bld) 23.4 % Normal 14.0-50.0 [facility] Comment on above: Performed By: #### 2 [id number] #### [facility] [address] [place] [address] MCH (RBC) [Entitic mass] 25.0 pg Low 27.0-34.0 [facility] Comment on above: Performed By: #### 2 [id number] #### [facility] [address] [place] [address] MCHC (RBC) [Mass/Vol] 32.8 g/dL Normal 31.4-36.0 [facility] Comment on above: Performed By: #### 2 [id number] #### [facility] [address] [place] [address] MCV (RBC) [Entitic vol] 76.3 fL Low 80.0-100.0 [facility] Comment on above: Performed By: #### 2 [id number] #### [facility] [address] [place] [address] Monocytes (Bld) [#/Vol] 0.7 E9/L Normal 0.2-1.0 [facility] Comment on above: Performed By: #### 2 [id number] #### [facility] [address] [place] [address] Neutrophils (Bld) [#/Vol] 4.0 E9/L Normal 2.0-7.5 [facility] Comment on above: Performed By: #### 2 [id number] #### [facility] [address] [place] [address] Neutrophils/100 WBC (Bld) 62.3 % Normal 36.0-75.0 [facility] Comment on above: Performed By: #### 2 [id number] #### [facility] [address] [place] [address] Platelet 291.0 E9/L Normal 150.0-500.0 [facility] Comment on above: Performed By: #### 2 [id number] #### [facility] [address] [place] [address] Platelet mean volume (Bld) [Entitic vol] 8.8 fL Normal 6.4-10.8 [facility] Comment on above: Performed By: #### 2 [id number] #### [facility] [address] [place] [address] RBC (Bld) [#/Vol] 4.4 E12/L Normal 4.3-5.9 [facility] Comment on above: Performed By: #### 2 [id number] #### [facility] [address] [place] [address] WBC corrected for nucl RBC Auto (Bld) [#/Vol] 6.5 E9/L Normal 4.0-11.0 [facility] Comment on above: Performed By: #### 2 [id number] #### [facility] [address] [place] [address] CHEMISTRYOrdered By: SYSTEM SYSTEM on 10-06-2023 Troponin [...] Sensitivity Troponin I Instructions For Use, Bill Marietta, October 2017) Anion gap [Moles/Vol] 11 mmol/L [...] Instructions For Use, Bill Renata, October 2017) Urea nitrogen [Mass/Vol] 10 mg/dL Normal 5 - 21 mg/dL Remisol Chem Urea nitrogen/Creatinine [Mass ratio] 12 mg/mg Normal 10 - 20 Remisol Chem COAGULATIONOrdered By: Olive Bright on 10-06-2023 aPTT Coag (PPP) [Time] 31.0 s Normal 25.1 - 36.5 second(s) [facility] Comment on above: Interpretive Data: P arameter 15 days - 4 weeks 1 - [...] the same coagulation reagent and instrumentation as [facility]. Currently there are no coagulation studies available worldwide for children to 14 days, and no normal ranges. Heparin therapeutic range (represented by Anti-Factor Xa activity of 0.2 - 0.4 U/mL) corresponds to PTT of 56.6 - 109.0 sec. Fibrin D-dimer FEU (PPP) [Mass/Vol] 301 ng/mL FEU Normal 215 - 500 ng/mL FEU [facility] Comment on above: Interpretive Data: [...] [Relative time] 1.04 {INR} Invalid Interpretation Code [facility] Comment on above: Interpretive Data: I NR results are specifically intended to assess patients stabilized on long-term Anticoagulation therapy suggested INR s Less Intensive Anticoagulation 2.0 3.0 Conventional Range 3.0 4.5 PT Coag (PPP) [Time] 11.7 s Normal 9.4 - 1 2.5 second(s) [facility] Comment on above: Interpretive Data: [...] the same coagulation reagent and instrumentation as [facility]. Currently there are no coagulation studies available worldwide for children to 14 days, and no normal ranges. D-Dimeron 10-06-2023 Fibrin D-dimer FEU (PPP) [Mass/Vol] 301 [id number] Normal 215-500 [facility] Comment on above: Result Comment: This assay [...] infections Liver cirrhosis Performed By: #### 2 [id number] #### [facility] [address] [place] [address] ED Clinical Summaryon 2023 ED Clinical Summary ED Clinical Summary [address] [address] ED Clinical Summary Person Information Name: FABRIZIO CARBALLO [facility] Age: 23 Years : 2000 Sex: Female Language: Hong Konger PCP: Nicolás MINA, MATT-Jewell LUCIANO Marital Status: Single Phone: [phone] Visit Id: Visit Reason: Back pain; Chest [...] 10/06/2023 23:56:56 10/06/2023 23:56:56 10/06/2023 23:56:56 ADDRESS: [address] [place] [id number] PHYS DOC NOTES: MEDICAL INFORMATION: Prescriptions Given: New Medications [facility], [address], [place] [id number], [phone] cephalexin (cephalexin 500 mg Cap) 1 Capsules [...] Follow up: With: Address: When: Hever Perea [address] [facility], [address] [place] [address] [phone] Business (1) In 3 days 10/09/2023 With: Address: When: Jewell Lyles [place], [place] [phone] Disqus (1) In 3 days 10/09/2023 DIAGNOSIS: Headache; Low back pain; Spondylolisthesis, grade 1; Spondylolysis; UTI (urinary tract infection) Normal [facility] ED Patient Summaryon ED Patient Summary ED Patient Summary [address] [address] Patient Discharge Instructions Person Information Name: FABRIZIO CARBALLO Age: 23 Years Arrival Date: 10/06/2023 19:10:33 Discharge Diagnosis: Headache; Low back pain; Spondylolisthesis, grade 1; Spondylolysis; UTI (urinary tract infection) Primary Care Physician: Nicolás MSN, LINING FOLDER-MICROFILM CLERK, Jewlel [place] Provider Information Primary Provider: Andrea Faustin DO Advanced Line Analyst:Charlie Bowman PA-C The exam and treatment you received in the Emergency Department were for an urgent problem and are not intended as complete care. It is important that you follow up with a doctor, nurse practitioner, or physician?s training and development assistant for ongoing care. If your symptoms [...] Follow-up Instructions: With: Address: When: Hever Perea [address] [facility], [address] [place] [phone] Disqus (1) In 3 days 10/09/2023 With: Address: When: Jewell Lyles [place], [place] [phone] Disqus (1) In 3 days 10/09/2023 In the event that this physician does not participate in your insurance network, please consult with your insurance company to find a nearby participating provider. Patient Education Materials: Tension Headache, Adult; Urinary Tract Infection, Adult; Spondylolisthesis A MESSAGE TO ALL PATIENTS REGARDING OPIOIDS PRESCRIPTION OPIOIDS: WHAT YOU NEED TO KNOW Prescription opioids can be used to help relieve lcpigthr-rz-ieirqa pain and are often prescribed following a [...] Administration (www.fda.gov/Drugs (more content not included)... Normal [facility] HEMATOLOGYOrdered By: SYSTEM SYSTEM on 10-06-2023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 #### 2 491437, 58452237, 2343235 #### [facility] [address] [place] [address] Hemoglobin (Bld) [Mass/Vol] 8.6 g/dL Low 12.0-16.0 [facility] Comment on above: Performed By: #### 2 104271, 84260679, 4527329 #### [facility] [address] [place] [address] MCH (RBC) [Entitic mass] 22.9 pg Low 27.0-34.0 [facility] Comment on above: Performed By: #### 2 048533, 75013389, 7127823 #### [facility] [address] [place] [address] MCHC (RBC) [Mass/Vol] 31.4 g/dL Normal 31.4-36.0 [facility] Comment on above: Performed By: #### 2 830101, 51429840, 8624004 #### [facility] [address] [place] [address] MCV (RBC) [Entitic vol] 72.8 fL Low 80.0-100.[address] [facility] Comment on above: Performed By: #### 2 964825, 07598869, 0245329 #### [facility] [address] [place] [address] Platelet 201.0 E9/L Normal 150.0-500.0 [facility] Comment on above: Performed By: #### 2 129406, 90063807, 3341021 #### [facility] [address] [place] [address] Platelet mean volume (Bld) [Entitic vol] 8.8 fL Normal 6.4-10.8 [facility] Comment on above: Performed By: #### 2 321672, 39267268, 3783560 #### [facility] [address] [place] [address] RBC 3.8 E12/L Low 4.3-5.9 [facility] Comment on above: Performed By: #### 2 684073, 27988375, 4697271 #### [facility] [address] [place] [address] WBC 5.7 E9/L Normal 4.0-11.0 [facility] Comment on above: Performed By: #### 2 332353, 11434245, 0333261 #### [facility] [address] [place] [address] Anisocytosis Ql (Bld) PRESENT Invalid Interpretation Code [facility] Comment on above: Performed By: #### 2 591439, 1904826, 2848166, 35231698, 4555358 #### [facility] [address] [place] [address] Hypochromasia PRESENT Invalid Interpretation Code [facility] Comment on above: Performed By: #### 2 873165, 1602332, 4072099, 17179767, 1672678 #### [facility] [address] [place] [address] Microcyte PRESENT Invalid Interpretation Code [facility] Comment on above: Performed By: #### 2 080308, 3702121, 4787335, 27807972, 5640790 #### [facility] [address] [place] [address] RBC morphology finding Nom (Bld) SEE MORPHOLOGY Invalid Interpretation Code [facility] Comment on above: Performed By: #### 2 515356, 2194219, 2073925, 05285298, 1637378 #### [facility] [address] [place] [address] Basophil Absolute 0.0 E9/L Normal 0.0-0.2 [facility] Comment on above: Performed By: #### 2 452367, 9401349, 6480049, 64441436, 0520952 #### [facility] [address] [place] [address] Basophils/100 WBC (Bld) 0.1 % Normal 0.0-2.0 [facility] Comment on above: Performed By: #### 2 260639, 8461375, 9760465, 18981560, 7724034 #### [facility] [address] [place] [address] Eos Absolute 0.0 E9/L Normal 0.0-0.5 [facility] Comment on above: Performed By: #### 2 354009, 1674324, 4909891, 35902165, 9743573 #### [facility] [address] [place] [address] Eosinophils/100 WBC (Bld) 0.2 % Normal 0.0-8.0 [facility] Comment on above: Performed By: #### 2 054056, 7586946, 5985432, 97925391, 1009574 #### [facility] [address] [place] [address] Erythrocyte distribution width (RBC) [Ratio] 16.6 % High 10.9-14.2 [facility] Comment on above: Performed By: #### 2 773466, 4413465, 7105675, 70988285, 5925977 #### [facility] [address] [place] [address] Hematocrit (Bld) [Volume fraction] 32.0 % Low 34.0-46.0 [facility] Comment on above: Performed By: #### 2 013892, 8138400, 3653468, 53739387, 2149444 #### [facility] [address] [place] [address] Hemoglobin (Bld) [Mass/Vol] 9.9 g/dL Low 12.0-16.0 [facility] Comment on above: Performed By: #### 2 389756, 1564062, 3417482, 67760737, 9377979 #### [facility] [address] [place] [address] Lymph Absolute 1.3 E9/L Normal 1.0-4.0 [facility] Comment on above: Performed By: #### 2 706728, 8404419, 1092590, 75347901, 6932406 #### [facility] [address] [place] [address] Lymphocytes/100 WBC (Bld) 16.1 % Normal 14.0-50.0 [facility] Comment on above: Performed By: #### 2 038592, 4202999, 0675245, 60320005, 3213212 #### [facility] [address] [place] [address] MCH (RBC) [Entitic mass] 22.8 pg Low 27.0-34.0 [facility] Comment on above: Performed By: #### 2 837606, 2607534, 0004663, 42680653, 5468274 #### [facility] [address] [place] [address] MCHC (RBC) [Mass/Vol] 31.4 g/dL Normal 31.4-36.0 [facility] Comment on above: Performed By: #### 2 727560, 7849858, 4650067, 58654773, 7816233 #### [facility] [address] [place] [address] MCV (RBC) [Entitic vol] 72.7 fL Low 80.0-100.[address] [facility] Comment on above: Performed By: #### 2 086580, 2026068, 0010516, 71474434, 7313144 #### [facility] [address] [place] [address] Fillmore Absolute 0.6 E9/L Normal 0.2-1.0 [facility] Comment on above: Performed By: #### 2 716489, 8416402, 9917918, 97170313, 6101156 #### [facility] [address] [place] [address] Monocytes/100 WBC (Bld) 6.8 % Normal 4.0-14.[address] [facility] Comment on above: Performed By: #### 2 910768, 1542052, 2412059, 10611859, 7027948 #### [facility] [address] [place] [address] Neutro Absolute 6.2 E9/L Normal 2.0-7.5 [facility] Comment on above: Performed By: #### 2 584739, 5435329, 8274766, 17643030, 1787502 #### [facility] [address] [place] [address] Neutro Auto 76.8 % High 36.0-75.0 [facility] Comment on above: Performed By: #### 2 902721, 0346248, 7751135, 17792325, 6458608 #### [facility] [address] [place] [address] Platelet 247.0 E9/L Normal 150.0-500.0 [facility] Comment on above: Performed By: #### 2 046101, 2020338, 1593219, 25427717, 2875121 #### [facility] [address] [place] [address] Platelet mean volume (Bld) [Entitic vol] 8.8 fL Normal 6.4-10.8 [facility] Comment on above: Performed By: #### 2 095483, 2991423, 1263077, 30802708, 5867155 #### [facility] [address] [place] [address] RBC 4.3 E12/L Normal 4.3-5.9 [facility] Comment on above: Performed By: #### 2 970346, 6654918, 4325024, 69228568, 7646615 #### [facility] [address] [place] [address] WBC 8.1 E9/L Normal 4.0-11.0 [facility] Comment on above: Performed By: #### 2 555244, 8562441, 9258907, 63866550, 5159618 #### [facility] [address] [place] [address] CHEMISTRYOrdered By: SYSTEM SYSTEM on 05-09-2023 Anion [...] 91 mg/dL Normal 55 - 99 mg/dL [facility] Subsection Comment on above: Result Comment: Neeta harris RN/MD POC Device SN [id number] 1 Invalid Interpretation Code [facility] Subsection POC User ID [id number] 1 Invalid Interpretation Code [facility] Subsection POC Username MARQUITA SILVEIRA Invalid Interpretation Code [facility] Subsection CT Abdomen/Pelvis w/ Contras ton 05-09-2023 CT Abdomen/Pelvis w/ Contrast Exam Date/Time: 05/09/2023 00:01 EST Reason for Exam: RLQ abdominal pain;Other (please specify) Report [facility] [phone] IMPRESSION: Findings concerning for early acute appendicitis [...] 300 Contrast amount in ml's: 100 Normal [facility] Capillary Glucose POCon 04-20 Glucose [Mass/Vol] 91 mg/dL Normal 55-99 [facility] Comment on above: Result Comment: Neeta harris RN/ Performed By: #### 1 0829931, 5254179482, 911990050, 0944264338 #### [facility] [address] [place] [address] Consent for Procedure/Surger yon 05-09-2023 Consent for Procedure/Surgery [id number] #1.00TIFF Normal [facility] Discharge Note-Nursingon Discharge Note-Nursing LATANYA CARBALLOMelo Stroud :2000 Visit Date:05/08/2023 Inpatient Discharge Instructions [...] Pending Diagnostic Test Results Biopsy/pathology Pharmacy Information [facility] Discharge Instructions no lifting heavier than 15 lbs for 3 weeks. Tylenol and motrin fo rmild to moderate pain, oxycodone for severe pain. New Follow Up Appointments after Discharge Follow Up with [facility] Mon[facility] When: Within 7 to 10 days, only if needed Where: [address] [place] [address] [place] [address] [phone] Business (1) Follow Up with trauma clinic When: Within 1 to 2 weeks Comments: Call to schedule/confirm followup appointment. May be telephone visit. Where: [address] [place] [address] 3, second floor, [address] [place] [address]- [phone] Medications What How Much When Why Instructions Next Dose New acetaminophen (acetaminophen 325 mg Tab) 2 Tablets By Mouth Every 4 hours as needed for Pain 1-3 start New docusate (Colace 100 mg Cap) 1 Capsules By Mouth 2 times a day Duration: 10 Days Pickup at [facility] start New oxycodone (oxyCODONE 5 mg Tab) 1 Tablets By Mouth Every 6 hours as needed for as needed for pain Acute appendicitis Duration: 3 Days Pickup at [facility] 05/10 1:00am Pharmacy Information [facility]: [address] [place] [id number] [phone] What How Much When Comments Stop Taking [...] 89 mg/dL (05/09/23:28:00) RBC: 3.8 E12/L Low (05/09/23::00) BUN: 6 mg/dL (05/09/23::00) HGB: 8.6 gm/dL Low (05/09/23::00) Creatinine: 0.6 mg/dL (05/09/23::) Hct: 28 % Low (05/09/23::) BUN/Creat Ratio: 10 (05/09/23::00) MCV: 72.8 fL Low (05/09/23::00) Sodium Lvl: 142 mmol/L (05/09/23:28:00) MCH: 22.9 pg Low (05/09/23::00) Potassium Lvl: 3.2 mmol/L Low (05/09/23::00) MCHC: 31.4 gm/dL (05/09/23::00) Chloride: 110 mmol/L (05/09/23:28:00) RDW: 16.8 % High (05/09/23::00) CO2: 25 mmol/L (05/09/23:28:00) Platelet: 201 E9/L (05/09/23:28:00) AGAP: 10 mEq/L (05/09/23:28:00) MPV: 8.8 fL (05/09/23:28:00) Calcium Lvl: 8.2 mg/dL Low (05/09/23:28:00) Allergies [...] to the (more content not included)... Normal [facility] ED Clinical Summaryon 2023 ED Clinical Summary [place] [address] ED Clinical Summary Person Information Name: FABRIZIO CARBALLO [facility] Age: 22 Years : 2000 Sex: Female Language: Hong Konger PCP: Nicolás MSN, LINING FOLDER-MICROFILM CLERK, [facility] [place] Marital Status: Single Visit Id: Visit Reason: Abdominal pain; CONSTIPATION, ABD PAIN Speciality: Acuity: 3 Enc Type: Observation Med Service: Emergency Arrival: 05/08/2023 22:59:07 Discharge: LOS: 000 02:34 Checkin: 05/08/2023 22:59:07 Checkout: 05/09/2023 01:33:17 Dispo Type: Admitted as IP to this [facility] EVENTS: Event Name Event Status Request Date/Time [...] 00:50:02 Meds Admin Request 05/09/2023 00:50:36 ADDRESS: [address] [place] [id number] [facility] DOC NOTES: MEDICAL INFORMATION: Prescriptions Given: Medications to Continue with No Changes Other Medications brompheniramine/dext romethorphan/PSE (Bromfed DM oral syrup) 5 Milliliter By Mouth 4 times a day as needed for cough and congestion. Refills: 0. PATIENT EDUCATION INFORMATION: Instructions: Follow up: DIAGNOSIS: Acute appendicitis Normal [facility] ED Note-Physicianon 05-09-19 ED Note-Physician Basic Information [...] and Complexity of Problems Differential Diagnosis: [] [facility] Data External documents reviewed: N/A My EKG [...] Regular exercis (more content not included)... Normal [facility] Comment on above: Result Comment: Elec tronically Signed By: Andrea Faustin DO\.br\Date and Time Signed: 05/09/23 00:39 EST ED Patient Education Noteon 05-09-2023 ED Patient Education Note Normal [facility] ED Patient Summaryon 024 ED Patient Summary [place] [id number] Patient Discharge Instructions Person Information Name: FABRIZIO CARBALLO Age: 22 Years Arrival Date: 05/08/2023 22:59:07 Discharge Diagnosis: Acute appendicitis Primary Care Physician: Nicolás MINA, LINING FOLDER-MICROFILM CLERK, [facility] [place] Provider Information Primary Provider: Andrea Faustin DO Advanced Line Analyst:None The exam and treatment you received in the Emergency Department were for an urgent problem and are not intended as complete care. It is important that you follow up with a doctor, nurse practitioner, or physician?s training and development assistant for ongoing care. If your symptoms [...] opioids can be used to help relieve pglmvzgb-rf-sezzdk pain and are often prescribed following a [...] be struggling with addiction, tell your health home care administrator and ask for guidance or call [facility]?Jose Manuel National Helpline at 3-415-562-STLL. w Source: [place] Department of Health and Human Services/Center for Disease Control & Prevention [facility] Medications Given: Medication Dose Route (more content not included)... Normal [facility] HEMATOLOGYOrdered By: Noble Jones on 05-09-2023 Anisocytosis [...] Low 80.0 - 100.0 fL Remisol Heme [place] Absolute 0.7 E9/L Normal 0.2 - 1.0 [...] 05-09-2023 Albumin [Mass/Vol] 3.9 g/dL Normal 3.3-5.0 [facility] Comment on above: Performed By: #### 2 431572, 0022103, 0772357, 86938719, 7118277 ####[facility] [address] [place] [address] Albumin/Globulin [Mass ratio] 1.2 {ratio} Normal 1.1-2.2 [facility] Comment on above: Performed By: #### 2 016675, 7486901, 5959157, 63909188, 6902370 ####[facility] [address] [place] [address] Alk Phos 82 Int._Unit/L Normal 21-98 [facility] Comment on above: Performed By: #### 2 696137, 4580194, 0402271, 07567322, 4692284 ####[facility] [address] [place] [address] ALT 63 Int._Unit/L High 6-46 [facility] Comment on above: Performed By: #### 2 868337, 8831471, 5380880, 19384311, 2289684 ####[facility] [address] [place] [address] AST 36 Int._Unit/L Normal 5-43 [facility] Comment on above: Performed By: #### 2 322343, 1264837, 6376998, 97692788, 6849500 ####[facility] [address] [place] [address] Bili Direct 0.1 mg/dL Normal 0.0-0.4 [facility] Comment on above: Performed By: #### 2 770635, 1174604, 4403366, 71177199, 2608544 ####[facility] [address] [place] [address] Bili Indirect 0.2 mg/dL Normal 0.1-0.9 [facility] Comment on above: Performed By: #### 2 952159, 7053652, 4227532, 61369783, 8484839 ####[facility] [address] [place] [address] Bili Total 0.3 mg/dL Normal 0.0-1.1 [facility] Comment on above: Performed By: #### 2 388423, 8804784, 7326025, 61208804, 8514933 ####[facility] [address] [place] [address] Globulin (S) [Mass/Vol] 3.2 g/dL Normal 1.4-4.[address] [facility] Comment on above: Performed By: #### 2 835332, 4574431, 5403834, 50302322, 9581592 ####[facility] [address] [place] [address] Protein [Mass/Vol] 7.1 g/dL Normal 6.0-7.8 [facility] Comment on above: Performed By: #### 2 676541, 8689638, 7026644, 58196302, 6149347 ####[facility] [address] [place] [address] Inpatient Clinical Summaryon 05-09-2023 Inpatient Clinical Summary [address] [address] Clinical Summary Person Information: Name: FABRIZIO CARBALLO Age: 22 Years : 2000 Sex: Female PCP: Nicolás MINA, LINING FOLDER-Jewell LUCIANO Marital Status: Single Race: White Ethnicity: Non- or Language: [place]er Visit Id: Visit Reason: Abdominal pain; CONSTIPATION, ABD PAIN Speciality: Acuity: Enc Type: Observation Med Service: Medical Arrival: 05/08/2023 22:59:07 Discharge: Dispo Type: Admitted as IP to this [facility] Address: [address] [place] [phone] Provider Notes: Diagnosis: Acute appendicitis Problems Active [...] Follow up: With: Address: When: [facility] Monzon [address] [place] [address] [address] [place] [phone] Business (1) Within 7 to 10 days, only if needed With: Address: When: trauma clinic [address] [facility] [address] second floor, [address] [place] [address] Within 1 to 2 weeks Comments: Call to schedule/confirm followup appointment. May be telephone visit. Patient Education Information: Appendicitis, Adult, Gxry-iw-Ljzg; Laparoscopic Appendectomy, Adult, Care After Normal [facility] Inpatient Patient Summaryon 05-09-2023 Inpatient Patient Summary [address] [address] Patient Discharge Instructions PERSON INFORMATION Name: FABRIZIO CARBALLO Date of : 2000 Current Date: 05/09/2023 10:47:46 PHYSICIANS Admitting Physician: Jamie Steven MD Primary Care Physician: Nicolás MINA, LINING FOLDER-MICROFILM CLERK, [facility] [place] PCP Phone Number: [phone] Comment: Discharge Diagnosis: Acute appendicitis Condition at [...] Biopsy/pathology Follow up: With: Address: When: [address] [place] [phone] [employer] (1) Within 7 to 10 days, only if needed With: Address: When: trauma clinic [address] [facility] [address] second floor, [address] [place] [address] Within 1 to 2 weeks Comments: Call [...] OCCURRED DURING YOUR HOSPITAL STAY New Medications [facility], [address] [place] [phone], [phone] docusate (Colace 100 mg Cap) 1 Capsules [...] condition is tr (more content not included)... Normal [facility] Insurance Correspondence Off ice05-09-2023 Insurance Correspondence Office [id number] #1.00TIFF Normal [facility] Interdisciplinary Note - Chin e Manageron 05-09-2023 Interdisciplinary Note - Water Conservation Specialist Pt is off the floor for Lap Appy. Blevins dc 05/09 or 05/10. CRM to follow. Normal [facility] Comment on above: Result Comment: Elec tronically Signed By: Monica Vazquez\Date and Time Signed: 05/09/23 09:48 EST Lipase Levelon 05-09-2023 Lipase Lvl 19 unit/L Normal 13-58 [facility] Comment on above: Performed By: #### 2 168692, 5904966, 6171535, 28551700, 1055402 ####[facility] [address] [place] [address] Main OR PACU I Recordon 04-20 Main OR PACU I Record PACU Phase I Document Type FT Summary Primary Physician: Jamie Stevne MD Finalized Date/Time: 05/09/23 10:42:50 Pt. Name: FABRIZIO CARBALLO./Sex: 2000 Female Med Rec #: [id number] Physician: Jamie Steven MD Financial #: [id number] Pt. Type: O Room/Bed: [facility]/ Admit/Disch: 05/08/23 22:59:07 - Institution: Case Times [...] By: Brittny Espino RN 05/09/23 10:42 Normal [facility] Main OR Preoperative Recordo n 05-09-2023 Main OR Preoperative Record PreOp Document Type FT Summary Primary Physician: Jamie Steven MD Finalized Date/Time: 05/09/23 09:03:34 Pt. Name: FABRIZIO CARBALLO D.O.B./Sex: 2000 Female Med Rec #: [id number] Physician: Jamie Steven MD Financial #: [id number] Pt. Type: O Room/Bed: [place] [address] Admit/Disch: 05/08/23 22:59:07 - Institution: Case Times [...] By: Monique Yarbrough RN 05/09/23 09:03 Normal [facility] Monitor Recordon 05-09-2023 Monitor Record [id number] 5#1.00TIFF Normal [facility] Monitor Record [id number] 0#1.00TIFF Normal [facility] RAD - Preliminary Cat Scan R eporton 05-09-2023 RAD - Preliminary Cat Scan Report [id number] 1#1.00TIFF Normal [facility] UA With Cult Reflexon 2023 Bilirubin Ql (U) Negative Normal Negative [facility] Comment on above: Performed By: #### 2 478385, 46743243, 2032569 #### [facility] [address] [place] [address] Clarity (U) CLEAR Normal Clear [facility] Comment on above: Performed By: #### 2 559266, 27658462, 9343786 #### [facility] [address] [place] [address] Color (U) YELLOW Normal Yellow [facility] Comment on above: Performed By: #### 2 824134, 61311153, 9780045 #### [facility] [address] [place] [address] Epithelial cells.squamous LM.HPF (Urine sed) [#/Area] 0-2 Normal 0-2 [facility] Comment on above: Performed By: #### 2 592210, 49254543, 2720916 #### [facility] [address] [place] [address] Glucose Test strip (U) [Mass/Vol] Negative Normal Negative [facility] Comment on above: Performed By: #### 2 [id number], [id number], [id number] #### [facility] [address] [place] [address] Hemoglobin Ql (U) Negative Normal Negative [facility] Comment on above: Performed By: #### 2 170333, [id number], [id number] #### [facility] [address] [place] [address] Ketones (U) [Mass/Vol] Negative Normal Negative [facility] Comment on above: Performed By: #### 2 341789, [id number], [id number] #### [facility] [address] [place] [address] Bensley.plasma/Bensley. RBC (Bld) [Mass ratio] 0-3 Normal 0-3 [facility] Comment on above: Performed By: #### 2 173243, [id number], [id number] #### [facility] [address] [place] [address] Nitrite Ql (U) Negative Normal Negative [facility] Comment on above: Performed By: #### 2 893289, [id number], [id number] #### [facility] [address] [place] [address] pH (U) 7.0 [pH] Invalid Interpretation Code 5.0-9.0 [facility] Comment on above: Performed By: #### 2 690514, [id number], [id number] #### [facility] [address] [place] [address] Protein (U) [Mass/Vol] Negative Normal Negative [facility] Comment on above: Performed By: #### 2 452966, [id number], [id number] #### [facility] [address] [place] [address] Specific gravity (U) [Rel density] 1.015 Invalid Interpretation Code 1.005-1.030 [facility] Comment on above: Performed By: #### 2 058036, [id number], 2830984 #### [facility] [address] [place] [address] Type of Urine collection method Cerda Normal [facility] Comment on above: Performed By: #### 2 218884, [id number], 6561582 #### [facility] [address] [place] [address] Urobilinogen Qn (U) 0.2 {Calderon'U}/dL Normal 0.0-1.0 [facility] Comment on above: Performed By: #### 2 715974, 23956035, 8257195 #### [facility] [address] [place] [address] WBC Auto Ql (U) Negative Normal Negative [facility] Comment on above: Performed By: #### 2 326495, 42584431, 7226359 #### [facility] [address] [place] [address] WBC LM.HPF (Urine sed) [#/Area] 0-5 Normal 0-5 [facility] Comment on above: Performed By: #### 2 747947, 96932787, 1513462 #### [facility] [address] [place] [address] URINALYSISOrdered By: Juan Taveras on 05-09-2023 Bilirubin Ql (U) Negative (05/09/23 8:45 AM) Normal Negative [facility] UA Auto SS Clarity (U) Clear (05/09/23 8:45 AM) Normal Clear [facility] UA Auto SS Color (U) Yellow (05/09/23 8:45 AM) Normal Yellow [facility] UA Auto SS Epithelial cells.squamous LM.HPF (Urine sed) [#/Area] 0-2 /HPF Normal 0-2/HPF [facility] UA Aut o SS Glucose Test strip (U) [Mass/Vol] Negative (05/09/23 8:45 AM) Normal Negative [facility] UA Auto SS Hemoglobin Ql (U) Negative (05/09/23 8:45 AM) Normal Negative [facility] UA Auto SS Ketones (U) [Mass/Vol] Negative (05/09/23 8:45 AM) Normal Negative [facility] UA Auto SS Bensley.plasma/Bensley. RBC (Bld) [Mass ratio] 0-3 /HPF Normal 0-3/HPF [facility] UA A uto SS Nitrite Ql (U) Negative (05/09/23 8:45 AM) Normal Negative [facility]A Auto SS pH (U) 7.0 *NA* (05/09/23 8:45 AM) Invalid Interpretation Code 5.0 - 9.0 [facility] Auto SS Protein (U) [Mass/Vol] Negative (05/09/23 8:45 AM) Normal Negative [facility] UA Auto SS Specific gravity (U) [Rel density] 1.015 *NA* (05/09/23 8:45 AM) Invalid Interpretation Code 1.005 - 1.030 [facility] UA Auto SS UA Spec Desc Cerda (05/09/23 8:45 AM) Normal [facility] UA Auto SS Urobilinogen Qn (U) 0.5168877 {Calderon'U}/dL Normal 0.0 - 1.0 EU/dL [facility] UA Auto SS WBC Auto Ql (U) Negative (05/09/23 8:45 AM) Normal Negative [facility] UA Auto SS WBC LM.HPF (Urine sed) [#/Area] 0-5 /HPF Normal 0-5/HPF [facility] UA Auto SS eGFRon 05-09-2023 eGFR 128 mL/min/1.73 m2 Normal >=59 [facility] Comment on above: Order Comment: Order added by Discern Expert. Performed By: #### 2 407212, [id number], [id number] #### [facility] [address] [place] [address] eGFR 123 mL/min/1.73 m2 Normal >=59 [facility] Comment on above: Order Comment: Order added by Discern Expert. Performed By: #### 2 583656, 5899802, 4057445, 17473300, 6869579 ####[facility] [address] [place] [address] CHEMISTRYOrdered By: SYSTEM SYSTEM on 05-08-2023 Albumin [...] Consent for Treatmenton 04-20 Consent for Treatment [id number] #1.00TIFF Normal [facility] HEMATOLOGYOrdered By: Donte Kerr on 05-08-2023 Anisocytosis [...] Low 80.0 - 100.0 fL Remisol Heme [place] Absolute 0.6 E9/L Normal 0.2 - 1.0 [...] 05-08-2023 HCG.beta subunit (U) [Moles/Vol] Negative Normal [facility] Man Sero U BetaHcg Qualon 05-08-2023 HCG.beta subunit (U) [Moles/Vol] Negative Normal [facility] Comment on above: Performed By: #### 2 [id number], [id number] ####[facility] [address] [place] [address] UA With Cult Reflexon 2023 Bilirubin Ql (U) Negative Normal Negative [facility] Comment on above: Performed By: #### 2 4156845, [id number] ####[facility] [address] [place] [address] Clarity (U) CLEAR Normal Clear [facility] Comment on above: Performed By: #### 2 9205613, 77511539 ####[facility] [address] [place] [address] Color (U) YELLOW Normal Yellow [facility] Comment on above: Performed By: #### 2 0095145, 41136221 ####[facility] [address] [place] [address] Epithelial cells.squamous LM.HPF (Urine sed) [#/Area] 0-2 Normal 0-2 [facility] Comment on above: Performed By: #### 2 6777314, 38236837 ####[facility] [address] [place] [address] Glucose Test strip (U) [Mass/Vol] Negative Normal Negative [facility] Comment on above: Performed By: #### 2 6613468, 77565574 ####[facility] [address] [place] [address] Hemoglobin Ql (U) Negative Normal Negative [facility] Comment on above: Performed By: #### 2 9130233, 33997972 ####[facility] [address] [place] [address] Ketones (U) [Mass/Vol] Negative Normal Negative [facility] Comment on above: Performed By: #### 2 9682840, 07240184 ####[facility] [address] [place] [address] Bensley.plasma/Bensley. RBC (Bld) [Mass ratio] 0-3 Normal 0-3 [facility] Comment on above: Performed By: #### 2 5658706, 41212975 ####[facility] [address] [place] [address] Nitrite Ql (U) Negative Normal Negative [facility] Comment on above: Performed By: #### 2 6709828, 95748469 ####[facility] [address] [place] [address] pH (U) 8.5 [pH] Invalid Interpretation Code 5.0-9.0 [facility] Comment on above: Performed By: #### 2 0588468, 42305510 ####[facility] [address] [place] [address] Protein (U) [Mass/Vol] Negative Normal Negative [facility] Comment on above: Performed By: #### 2 0065918, 20973248 ####[facility] [address] [place] [address] Specific gravity (U) [Rel density] 1.020 Invalid Interpretation Code 1.005-1.030 [facility] Comment on above: Performed By: #### 2 8110799, 15240128 ####[facility] [address] [place] [address] Type of Urine collection method Clean Catch Normal [facility] Comment on above: Performed By: #### 2 7029160, 60213184 ####[facility] [address] [place] [address] Urobilinogen Qn (U) 0.2 {Calderon'U}/dL Normal 0.0-1.0 [facility] Comment on above: Performed By: #### 2 6651109, 02806417 ####[facility] [address] [place] [address] WBC Auto Ql (U) Negative Normal Negative [facility] Comment on above: Performed By: #### 2 3944999, 85434192 ####[facility] [address] [place] [address] WBC LM.HPF (Urine sed) [#/Area] 0-5 Normal 0-5 [facility] Comment on above: Performed By: #### 2 6216762, 93469168 ####[facility] [address] [place] [address] URINALYSISOrdered By: Donte Kerr on 05-08-2023 Bilirubin [...] PM) Normal Negative [facility] UA Auto SS Bensley.plasma/Bensley. RBC (Bld) [Mass ratio] 0-3 /HPF Normal 0-3/HPF [facility] UA A uto SS Nitrite Ql (U) Negative (05/08/23 11:23 PM) Normal Negative [facility] UA Auto SS pH (U) 8.5 *NA* (2/20/24 11:23 PM) Invalid Interpretation Code 5.0 - 9.0 [facility] UA Auto SS Protein (U) [Mass/Vol] Negative (05/08/23 11:23 PM) Normal Negative [facility] UA Auto SS Specific gravity (U) [Rel density] 1.020 *NA* (05/08/23 11:23 PM) Invalid Interpretation Code 1.005 - 1.030 [facility] UA Auto SS UA Spec Desc Clean Catch (05/08/23 11:23 PM) Normal [facility] UA Auto SS Urobilinogen Qn (U) 0.0360548 {Calderon'U}/dL Normal 0.0 - 1.0 EU/dL [facility] UA Auto SS WBC Auto Ql (U) Negative (05/08/23 11:23 PM) Normal Negative [facility] UA Auto SS WBC LM.HPF (Urine sed) [#/Area] 0-5 /HPF Normal 0-5/HPF [facility] UA Auto SS Consent for Treatmenton 04-19 Consent for Treatment [id number] 40 [id number] #1.00TIFF Normal [facility] Discharge Instructionson Discharge Instructions [id number] 6#1.00TIFF Normal [facility] ED Clinical Summaryon 2023 ED Clinical Summary [place] [id number] ED Clinical Summary Person Information Name: FABRIZIO CARBALLO [facility] Age: 22 Years : 2000 Sex: Female Language: Hong Konger PCP: Nicolás MSN, LINING FOLDER-MICROFILM CLERKJewell Marital Status: Single Visit Id: Visit Reason: [...] 05/02/2023 09:22:45 05/02/2023 09:22:45 05/02/2023 09:22:45 ADDRESS: [address] [place] [id number] PHYS DOC NOTES: MEDICAL INFORMATION: Prescriptions Given: New Medications [facility], [address] [place], [place] [phone], [phone] brompheniramine/dext romethorphan/PSE (Bromfed DM oral syrup) 5 [...] EDUCATION INFORMATION: Instructions: Upper Respiratory Infection, Adult, Mbor-ey-Sbnd Follow up: With: Address: When: Jewell Monzon [address] [place] [address] [address] [place] [phone] Business (1) In 3 days 05/05/2023 Comments: Follow-up with your primary care provider in 3 to 5 days. If symptoms worsen, do not improve, or new symptoms arise please report back to emergency department for further evaluation. DIAGNOSIS: Acute URI Normal [facility] ED Note-Physicianon 05-02-19 ED Note-Physician Basic [...] Information Jewell Nicolás In 3 days 05/05/[address] [place] [address] [place] [address] [phone] Business (1) Additional Instructions: Follow-up with your primary care provider in 3 to 5 days. If symptoms worsen, do not improve, or new symptoms arise please report back to emergency department for further evaluation. Patient Education Upper Respiratory Infection, Adult, Kdwn-en-Idoc Attestation Patient seen and evaluated by the physician training and development assistant. Attending physician was present in the emergency department and supervised care. This visit was perfo (more content not included)... Normal [facility] Comment on above: Result Comment: Elec [...] to help relieve symptoms, such as: ? Dusu-miv-pmtxoqf cold medicines. ? Medicines to reduce coughing [...] other clear broths. General instructions ? Take ygxm-epk-zwblvtd and prescription medicines only as told by [...] cannot use soap and water, use hand cooker pie filling. ? Avoid touching your mouth, face, eyes, [...] get better within 7?10 days. ? Take spdj-mdm-ggvlslx and prescription medicines only as told by your doctor. This information is not intended to replace advice given to you by your health care (more content not included)... Normal [facility] ED Patient Summaryon 024 ED Patient Summary [place] [id number] Patient Discharge Instructions Person Information Name: FABRIZIO CARBALLO Age: 22 Years Arrival Date: 05/02/2023 08:16:05 Discharge Diagnosis: Acute URI Primary Care Physician: Nicolás MINA, LINING FOLDER-MUSTAPHA, Jewell [place] Provider Information Primary Provider: Adolph Aleman M.D. Advanced Line Analyst:None The exam and treatment you received in the Emergency Department were for an urgent problem and are not intended as complete care. It is important that you follow up with a doctor, nurse practitioner, or physician?s training and development assistant for ongoing care. If your symptoms become worse or you do not improve as expected and you are unable to reach your usual health care provider, you should return to the Emergency Department. We are available 24 hours a day. FABRIZIO CARBALLO has been given the following list of patient education materials, prescriptions and follow-up instructions: Follow-up Instructions: With: Address: When: Jewell Nicolás [address] [place] [address] [address] [place], [place] [phone] Business (1) In 3 days 05/05/2023 Comments: [...] Patient Education Materials: Upper Respiratory Infection, Adult, Oyzq-qf-Qxrb A MESSAGE TO ALL PATIENTS REGARDING OPIOIDS PRESCRIPTION OPIOIDS: WHAT YOU NEED TO KNOW Prescription opioids can be used to help relieve vonsidti-hc-upigvp pain and are often prescribed following a [...] opioids a (more content not included)... Normal [facility] Grp A Strp PCRon 05-02-2023 Grp A Strp Intrl Ctrl Pass Normal Fis [facility] Comment on above: Order Comment: Order Added on by Discern Rule. Performed By: #### 1 1979929, [id number], [id number], [id number] #### [facility] [address] [place] [address] S. pyogenes DNA ELYSIA+probe Ql (Throat) Negative Normal [facility] Comment on above: Order Comment: Order Added on by Discern Rule. Result Comment: Test ing performed using DNA amplification. Performed By: #### 1 4572091, [id number], [id number], [id number] #### [facility] [address] [place] [address] Influenza A&B Agon Influenzae A Ag Negative Normal Negative [facility] Comment on above: Performed By: #### 1 7228263, [id number], 010722851, [id number] #### [facility] [address] [place] [address] Influenzae B Ag Negative Normal Negative [facility] Comment on above: Result Comment: Test sensitivity and specificity vary for age group, specimen type, antigen types, and prevalence of disease. Test results must be evaluated in conjunction with other clinical data available to the physician. Individuals who received nasally administered Influenza A vaccine may have positive test results up to 3 days after vaccination. Performed By: #### 1 7772489, [id number], [id number], [id number] #### [facility] [address] [place] [address] MICRO OTHER TESTSOrdered By: Mary Guererro on 05-02-2023 Influenzae A Ag Negative (05/02/23 8:28 AM) Normal Negative [facility] Man Sero Influenzae B Ag Negative 1 (05/02/23 8:28 AM) Normal Negative [facility] Comment on above: Interpretive Data: [...] POS Ctl Pass (05/02/23 8:28 AM) Normal [facility] Sero S. pyogenes Ag IA.rapid Ql (Throat) Negative (05/02/23 8:28 AM) Normal Negative [facility] Man Sero SARS-CoV+SARS-CoV-2 (COVID-19) Ag IA.rapid Ql (Resp) Not Detected 2 (05/02/23 8:28 AM) Normal Not Detected [facility] Comment on above: Interpretive Data: Ashly bajwa [employer] Veritor System for Rapid Detection of SARS-CoV-2 [...] other viruses or pathogens; and, in the [facility], this test is only authorized for the duration of the declaration that circumstances exist justifying the authorization of emergency use of in vitro diagnostics for detection and/or diagnosis of the virus that causes COVID-19 under Section 564(b)(1) of the Act, 21 U.S.C. 360bbb-3(b)(1), unless the authorization is terminated or revoked sooner. Rapid COVID Antigen ([facility])on 05-02-2023 Rapid COV Int NEG Ctl Pass Normal Fis her [facility] Comment on above: Performed By: #### 1 8173737, [id number], [id number], [id number] #### [facility] [address] [place] [address] Rapid COV Int POS Ctl Pass Normal Fis her [facility] Comment on above: Performed By: #### 1 1320090, [id number], 917904171, [id number] #### [facility] [address] [place] [address] SARS-CoV+SARS-CoV-2 (COVID-19) Ag IA.rapid Ql (Resp) Not detected Normal Not Detected [facility] Comment on above: Result Comment: The Prevacusitor? System for Rapid Detection of SARS-CoV-2 is [...] or revoked sooner. Performed By: #### 1 1501828, [id number], [id number], [id number] #### [facility] [address] [place] [address] Rapid Strep w/rfxon 05-02-19 S. pyogenes Ag IA.rapid Ql (Throat) Negative Normal Negative [facility] Comment on above: Performed By: #### 1 0303603, [id number], 148622941, [id number] #### [facility] [address] [place] [address] XR Chest 2 Viewson XR Chest 2 [...] mGy = . DAP = . Normal [facility] ED Note-Physicianon 04-24-19 ED Note-Physician Basic Information [...] and Complexity of Problems Differential Diagnosis: [] [facility] Data External documents reviewed: [] My EKG [...] Monzon In 3 days 04/26/[address] [place] [address] [phone] Business (1) Additional Instructions: Follow-up with your primary care provider in 3 to 5 days. If symptoms worsen, do not improve, or new symptoms arise please report back to emergency department for further evaluation. Patient Education Back Injury Prevention, Cxnp-wk-Dede Back Exercises, Hnfw-hv-Rffw Attestation Patient seen and evaluated by the physician training and development assistant. Attending physician was present in the emergency department and supervised care. This visit was performed by both the physician and an APC. I performed all aspects of the MDM as documented. This report was transcribed using voice recognition software. Every effort was made to ensure accuracy, however, inadvertently computerized ent physician mistakes may be present. Appropriate healthcare PPE [...] Abnormal c (more content not included)... Normal [facility] Comment on above: Result Comment: Elec tronically Signed By: Carlos Wolf PA-C\.br\Date and Time Signed: 04/23/23 21:36 EST\.br\Electronically Co-Signed By: Andrea Faustin DO\.br\Date and Time Co-Signed: 04/24/23 00:[address] Head or Brain w/o Contras ton 02-05-2024 CT Head or Brain w/o Contrast Exam [...] MD Transcribed by: ANCELMO Technologist: SIMONE Lay [facility] CT Spine Cervical w/o Contra ston [...] soft tissue abnormalities identified. Ordering Provider: Carlos Wofl FINAL REPORT Dictated: 04/23/2023 7:58 pm Girish Edmond MD Signed (Electronic Signature): 04/23/2023 7:58 pm Signed by: Girish Edmond MD Transcribed by: ANCELMO Technologist: SIMONE Lay [facility] Consent for Treatmenton Consent for Treatment [id number] #1.00TIFF Normal [facility] Discharge Instructionson Discharge Instructions [id number] 45#1.00TIFF Normal [facility] ED Clinical Summaryon 2023 ED Clinical Summary [place] [id number] ED Clinical Summary Person Information Name: FABRIZIO CARBALLO [facility] Age: 22 Years : 2000 Sex: Female Language: Hong Konger PCP: Nicolás MINA, LINING FOLDER-Jewell LUCIANO Marital Status: Single Visit Id: Visit [...] 04/23/2023 20:12:55 04/23/2023 20:12:55 04/23/2023 20:12:55 ADDRESS: [address] [place] [id number] PHYS DOC NOTES: MEDICAL INFORMATION: Prescriptions Given: [...] PATIENT EDUCATION INFORMATION: Instructions: Back Injury Prevention, Aguu-eh-Injl; Back Exercises, Ggsy-qu-Osns Follow up: With: Address: When: Jewell Monzon [address] [place] [address] [address] [place] [phone] Disqus (1) In 3 days 04/26/2023 Comments: Follow-up with your primary care provider in 3 to 5 days. If symptoms worsen, do not improve, or new symptoms arise please report back to emergency department for further evaluation. DIAGNOSIS: Back spasm; Fall Normal [facility] ED Patient Education Noteon 04-23-2023 ED [...] the object as you can. Do not excelsior picker a heavy object that is far [...] objects on shelves at waist level. Put soil conservation aide objects on lower or higher shelves. ? Find ways to lower your stress (more content not included)... Normal [facility] ED Patient Summaryon 024 ED Patient Summary [address] [address] Patient Discharge Instructions Person Information Name: FABRIZIO CARBALLO Age: 22 Years Arrival Date: 04/23/2023 19:11:15 Discharge Diagnosis: Back spasm; Fall Primary Care Physician: Nicolás MSN, LINING FOLDER-MICROFILM CLERK, Jewell [place] Provider Information Primary Provider: Andrea Faustin DO Advanced Line Analyst:None The exam and treatment you received in the Emergency Department were for an urgent problem and are not intended as complete care. It is important that you follow up with a doctor, nurse practitioner, or physician?s training and development assistant for ongoing care. If your symptoms [...] Follow-up Instructions: With: Address: When: Jewell Monzon [address] [place] [address] [place] [phone] Disqus (1) In 3 days 04/26/2023 Comments: Follow-up [...] provider. Patient Education Materials: Back Injury Prevention, Dxwg-si-Iuat; Back Exercises, Ndrq-ps-Ramy A MESSAGE TO ALL PATIENTS REGARDING OPIOIDS PRESCRIPTION OPIOIDS: WHAT YOU NEED TO KNOW Prescription opioids can be used to help relieve yfiijicv-ek-hadvxw pain and are often prescribed following a [...] about t (more content not included)... Normal [facility] Patient Educationon 04-03-19 Patient Education Mental and [...] pray, or go to a place of spiritism. ? Do some deep breathing. To do [...] or salt (sodium). General instructions ? Take xfpa-ajt-sbbnaij and prescription medicines only as told by [...] www[facility].ne (more content not included)... Normal [facility] Patient Educationon 03-26-19 Patient Education Neurology Chronic [...] these instructions at home: Medicines ? Take ullu-duu-mgdzgjs and prescription medicines only as told by [...] and dr (more content not included)... Normal [facility] Discharge Instructionson Discharge Instructions [id number] 110 [id number] #1.00TIFF [facility] ED Clinical Summaryon 2022 ED Clinical Summary [place] [id number] ED Clinical Summary Person Information Name: FABRIZIO CARBALLO [facility] Age: 22 Years : 2000 Sex: Female Language: [place]er PCP: Nicolás MSN, LINING FOLDER-MICROFILM CLERKJewell Marital Status: Single Visit Id: Visit Reason: [...] 02/03/2023 00:33:08 02/03/2023 00:33:08 02/03/2023 00:33:08 ADDRESS: [address] [place] [id number] [facility] DOC NOTES: MEDICAL INFORMATION: Prescriptions Given: [...] Depression, Adult Follow up: With: Address: When: [facility] In 3 days 02/06/2023 Comments: Please follow-up with your primary care doctor in the P for further evaluation and management. Please return to the ED for any new or worsening symptoms. With: Address: When: Jewell Monzon [address] [place], [place] [phone] Business (1) In 3 days DIAGNOSIS: Depression Normal [facility] ED Note-Nursingon 02-03-2023 ED Note-Nursing Patient now done talking on the phone with Estrella from [facility]. Estrella has a safety plan set up for patient to reference when in need and will follow up with P on Sunday. Normal [facility] ED Note-Physicianon 02-04-20 ED Note-Physician Basic [...] and Complexity of Problems Differential Diagnosis: [] [facility] Data External documents reviewed: [] My EKG [...] cleared for psychiatric evaluation. Patient talked with [facility] they were able to arrange outpatient resources [...] eGFR Ethanol Level Morphology Rapid COVID Antigen ([facility]) U Beta Hcg Qual Disposition Plan Discharge Prescription List Prescriptions No active prescription medications Follow-up With When Contact Information [facility] In 3 days 02/06/2023 EST Additional Instructions: Please follow-up with your primary care doctor in the [facility] for further evaluation and management. Please return to the ED for any new or worsening symptoms. Jewell Rizviant In 3 days [address] [place] [address]- [phone] Business (1) Additional Instructions: Patient Education Managing [...] refills, N (more content not included)... Normal [facility] Comment on above: Result Comment: Elec tronically Signed By: Earline Bond DO.melodie\Date and Time Signed: 02/03/23 01:00 [facility] ED Patient Education Noteon 02-03-2023 [...] pray, or go to a place of spiritism. ? Do some deep breathing. To do [...] or salt (sodium). General instructions ? Take ptzs-oas-tcexksh and prescription medicines only as told by [...] www[facility].ne (more content not included)... Normal [facility] ED Patient Summaryon 023 ED Patient Summary [address] [address] Patient Discharge Instructions Person Information Name: FABRIZIO CARBALLO Age: 22 Years Arrival Date: 02/02/2023 20:50:59 Discharge Diagnosis: Depression Primary Care Physician: Nicolás MSN, LINING FOLDER-MICROFILM CLERK, Jewell [place] Provider Information Primary Provider: Earline Bond DO Advanced Line Analyst:None The exam and treatment you received in the Emergency Department were for an urgent problem and are not intended as complete care. It is important that you follow up with a doctor, nurse practitioner, or physician?s training and development assistant for ongoing care. If your symptoms become worse or you do not improve as expected and you are unable to reach your usual health care provider, you should return to the Emergency Department. We are available 24 hours a day. FABRIZIO CARBALLO has been given the following list of patient education materials, prescriptions and follow-up instructions: Follow-up Instructions: With: Address: When: [facility] In 3 days 02/06/2023 Comments: Please follow-up with your primary care doctor in the P for further evaluation and management. Please return to the ED for any new or worsening symptoms. With: Address: When: Jewell Monzon [address] [place] [phone] Business (1) In 3 days In the event that this physician does not participate in your insurance network, please consult with your insurance company to find a nearby participating provider. Patient Education Materials: Managing Depression, Adult A MESSAGE TO ALL PATIENTS REGARDING OPIOIDS PRESCRIPTION OPIOIDS: WHAT YOU NEED TO KNOW Prescription opioids can be used to help relieve rngkkpeq-lv-jhnyby pain and are often prescribed following a [...] about t (more content not included)... Normal [facility] Outside Recordson 02-03-2023 Outside Records [id number] #1.00TIFF Normal [facility] Auto Diffon 02-02-2023 Basophils/100 WBC (Bld) 0.6 % Normal 0.0-2.[address] [facility] Comment on above: Order Comment: Order Added by Discern Expert. Performed By: #### 2 872990, [id number], 5685630 #### [facility] [address] [place] [address] Basophils/Leukocytes Auto (Bld) [Pure # fraction] 0.0 E9/L Normal 0.0-0.2 [facility] Comment on above: Order Comment: Order Added by Discern Expert. Performed By: #### 2 688976, 51839859, 8877103 #### [facility] [address] [place] [address] Eosinophils/100 WBC (Bld) 3.0 % Normal 0.0-8.0 [facility] Comment on above: Order Comment: Order Added by Discern Expert. Performed By: #### 2 017541, 68778504, 5422759 #### [facility] [address] [place] [address] Eosinophils/Leukocytes Auto (Bld) [Pure # fraction] 0.3 E9/L Normal 0.0-0.5 [facility] Comment on above: Order Comment: Order Added by Discern Expert. Performed By: #### 2 557560, [id number], 0654336 #### [facility] [address] [place] [address] Lymphocytes/100 WBC (Bld) 33.8 % Normal 14.0-50.0 [facility] Comment on above: Order Comment: Order Added by Discern Expert. Performed By: #### 2 044362, 92710768, 9313308 #### [facility] [address] [place] [address] Lymphocytes/Leukocytes Auto (Bld) [Pure # fraction] 2.9 E9/L Normal 1.0-4.0 [facility] Comment on above: Order Comment: Order Added by Discern Expert. Performed By: #### 2 031546, 52836699, 2894272 #### [facility] [address] [place] [address] Monocytes/100 WBC (Bld) 8.3 % Normal 4.0-14.0 [facility] Comment on above: Order Comment: Order Added by Discern Expert. Performed By: #### 2 032457, 13854773, 5830112 #### [facility] [address] [place] [address] Monocytes/Leukocytes Auto (Bld) [Pure # fraction] 0.7 E9/L Normal 0.2-1.0 [facility] Comment on above: Order Comment: Order Added by Discern Expert. Performed By: #### 2 038947, 22212440, 4267005 #### [facility] [address] [place] [address] Neutrophils/100 WBC (Bld) 54.3 % Normal 36.0-75.0 [facility] Comment on above: Order Comment: Order Added by Discern Expert. Performed By: #### 2 740974, 98973943, 1087646 #### [facility] [address] [place] [address] Neutrophils/Leukocytes Auto (Bld) [Pure # fraction] 4.7 E9/L Normal 2.0-7.5 [facility] Comment on above: Order Comment: Order Added by Discern Expert. Performed By: #### 2 083315, 87895487, 0082725 #### [facility] [address] [place] [address] CBC w/ Auto Diffon 3 Erythrocyte distribution width (RBC) [Ratio] 16.5 % High 10.9-14.2 [facility] Comment on above: Performed By: #### 2 311585, 84797132, 4735606, 84735307, 6328541 ####[facility] [address] [place] [address] Hematocrit (Bld) [Volume fraction] 31.2 % Low 34.0-46.0 [facility] Comment on above: Performed By: #### 2 515180, 74803373, 8826552, 67573574, 0459680 ####[address] [place] [address] Hemoglobin (Bld) [Mass/Vol] 9.8 g/dL Low 12.0-16.0 [facility] Comment on above: Performed By: #### 2 957991, 77087329, 7246333, 78908056, 9989141 ####[facility] [address] [place] [address] MCH (RBC) [Entitic mass] 23.3 pg Low 27.0-34.0 [facility] Comment on above: Performed By: #### 2 634791, 31195946, 4734057, 53630502, 6750448 ####[facility] [address] [place] [address] MCHC (RBC) [Mass/Vol] 31.4 g/dL Normal 31.4-36.0 [facility] Comment on above: Performed By: #### 2 564380, 33291719, 2862194, 00237117, 7410661 ####[facility] [address] [place] [address] MCV (RBC) [Entitic vol] 74.3 fL Low 80.0-100.[address] [facility] Comment on above: Performed By: #### 2 254400, 84559332, 0416668, 09530737, 5782859 ####[facility] [address] [place] [address] Platelet mean volume (Bld) [Entitic vol] 8.0 fL Normal 6.4-10.8 [facility] Comment on above: Performed By: #### 2 594420, 68517129, 0487657, 92311116, 3190019 ####[facility] [address] [place] [address] Platelets (Bld) [#/Vol] 361.0 E9/L Normal 150.0-500.0 [facility] Comment on above: Performed By: #### 2 627264, 81126651, 7555332, 50870581, 0785161 ####[address] [address] RBC (Bld) [#/Vol] 4.2 E12/L Low 4.3-5.9 [facility] Comment on above: Performed By: #### 2 812534, 52276369, 4260674, 67261522, 1863792 ####[address] [address] WBC corrected for nucl RBC Auto (Bld) [#/Vol] 8.7 E9/L Normal 4.0-11.0 [facility] Comment on above: Performed By: #### 2 728198, 13861997, 8829170, 93743499, 1571888 ####[facility] [address] [place] [address] CHEMISTRYOrdered By: SYSTEM SYSTEM on 02-02-2023 Amphetamines [...] mg/dL Normal 8.9 - 11. 1 mg/dL [facility] Chloride [Moles/Vol] 108 mmol/L Normal 101 - 1 11 mmol/L [facility] CO2 [Moles/Vol] 26 mmol/L Normal 21 - 31 mmol/L [facility] Creatinine [Mass/Vol] 0.7 mg/dL Normal 0.5 - 1.3 mg/dL [facility] Ethanol [Mass/Vol] mg/dL Normal <=7mg/dL [facility] emisol GFR/1.73 sq M.predicted among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 [address] [place] [address] Dr. Lissy Allen Rubella Antibodies, IgM <20.0 Normal 0.0-19.9 [facility] Comment on above: Result Comment: Nega tive <20.0 Equivocal 20.0 - 24.9 Positive >24.9 Performed By: #### P IDAQ #### [facility] [address] [place] [address] Dr. Lissy Allen Toxoplasma gondii Ab,IgM,Qn <3.0 Normal 0.0-7.9 [facility] Comment on above: Result Comment: Nega tive <8.0 Equivocal 8.0 - 9.9 Positive >9.9 Performed By: #### P IDAQ #### [facility] [address] [place] [address] Dr. Lissy Allen UA (CLEAN/CATCH) MANAGER INTENSIVE CARE UNIT/MICRO I F IND.on 04-05-2021 Bilirubin Ql (U) Negative Normal NEGATIVE [facility] Comment on above: Performed By: #### U ACSIND #### [facility] [address] [place] [address] Dr. Lissy Allen Clarity (U) CLEAR Normal CLEAR [facility] Comment on above: Performed By: #### U ACSIND #### [facility] [address] [place] [address] Dr. Lissy Allen Color (U) LT. YELLOW Normal YELLOW [facility] Comment on above: Performed By: #### U ACSIND #### [facility] [address] [place] [address] Dr. Lissy Allen Glucose Ql (U) Negative Normal NEGATIVE [facility] Comment on above: Performed By: #### U ACSIND #### [facility] [address] [place] [address] Dr. Lissy Allen Hemoglobin Ql (U) Negative Normal NEGATIVE [facility] Comment on above: Performed By: #### U ACSIND #### [facility] [address] [place] [address] Dr. Lissy Allen Ketones Ql (U) Negative Normal NEGATIVE [facility] Comment on above: Performed By: #### U ACSIND #### [facility] [address] [place] [address] Dr. Lissy Allen LEUKOCYTES Negative Normal NEGATIVE [facility] Comment on above: Performed By: #### U ACSIND #### [facility] [address] [place] [address] Dr. Lissy Allen Nitrite Ql (U) Negative Normal NEGATIVE [facility] Comment on above: Performed By: #### U ACSIND #### [facility] [address] [place] [address] Dr. Lissy Allen pH (U) 7.0 [pH] Normal 5-9 [facility] Comment on above: Performed By: #### U ACSIND #### [facility] [address] [place] [address] Dr. Lissy Allen SPEC GRAVITY 1.025 Normal 1.005-<=1.02 5 [facility] Comment on above: Performed By: #### U ACSIND #### [facility] [address] [place] [address] Dr. Lissy Allen UA PROTEIN Negative Normal NEGATIVE/ TRACE [facility] Comment on above: Performed By: #### U ACSIND #### [facility] [address] [place] [address] Dr. Lissy Allen UR MICRO IND NOT INDICATED Normal [facility] Comment on above: Performed By: #### U ACSIND #### [facility] [address] [place] [address] Dr. Lissy Allen Urobilinogen Qn (U) 0.2 {Calderon'U}/dL Normal 0.2 - 1. 0 [facility] Comment on above: Performed By: #### U ACSIND #### [facility] [address] [place] [address] Dr. Lissy Allen US PREG BIOPHY W [...] by: DEVIN ANAND Date: 2021-04-05 08:19 Normal [facility] LAB TESTINGon 04-04-2021 RECV HEADER SEE SCANNED REPORT IN HPF Normal [facility] Comment on above: Performed By: #### M ISC #### [facility] [address] [place] [address] Dr. Lissy Allen REV FROM REF LAB 04/11/2021 [facility] Comment on above: Performed By: #### M ISC #### [facility] [address] [address] [address] Lissy Allen SENT TO REF LAB 04/04/2021 [facility] Comment on above: Performed By: #### M ISC #### [facility] [address] [place], [place] [address] Dr. Lissy Allen US PREG BIOPHY W [...] by: DEVIN ANAND Date: 2021-04-04 13:49 Normal [facility] US PREG BIOPHY W NON STRESSo n [...] by: LUIS HART Date: 2021-04-01 13:17 Normal [facility] US PREG BIOPHY W NON STRESSo n [...] by: DEVIN ANAND Date: 2021-03-31 07:02 Normal [facility] AMYLASEon 03-30-2021 Amylase [Catalytic activity/Vol] 70 U/L Normal 31-110 [facility] Comment on above: Performed By: #### A LT, AST, LIPA, CREA, NATALY, ELEC ####[facility] [address] [address]Dr. Lissy Allen BUNon 03-30-2021 Urea nitrogen [Mass/Vol] 10.0 mg/dL Normal 7.0-17.0 [facility] Comment on above: Performed By: #### B UN #### [facility] [address] [address] [address] Lissy Allen CBC AUTO DIFFon 03-30-2021 BASO # 0.0 103/ul Normal 0.0-0.1 [facility] Comment on above: Performed By: #### C BC ####[facility] [address] [address]Dr. Lissy Allen Basophils/100 WBC (Bld) 0.3 % Normal 0.2-2.0 [facility] Comment on above: Performed By: #### C BC ####[facility] [address] [address]Dr. Lissy Allen EO # 0.0 103/ul Normal 0.0-0.7 [facility] Comment on above: Performed By: #### C BC ####[facility] [address] [address]Dr. Lissy Allen Eosinophils/100 WBC (Bld) 0.2 % Critically low 0.9-7.0 [facility] Comment on above: Performed By: #### C BC ####[facility] [address] [address]Dr. Lissy Allen Erythrocyte distribution width (RBC) [Ratio] 18.6 % Critically high 11.0-15.0 [facility] Comment on above: Performed By: #### C BC ####[facility] [address] [address]Dr. Lissy Allen Hematocrit (Bld) [Volume fraction] 28.6 % Critically low 36.0-48.0 [facility] Comment on above: Performed By: #### C BC ####[facility] [address] [place], [place] [address]Dr. Lissy Allen Hemoglobin (Bld) [Mass/Vol] 8.5 g/dL Critically low 12.0-16.0 [facility] Comment on above: Performed By: #### C BC ####[facility] [address] [place], [place] [address]Dr. Lissy Allen IG # 0.07 10e3/ul Critically high 0.00-0.03 [facility] Comment on above: Performed By: #### C BC ####[facility] [address] [place], [place] [address]Dr. Lissy Allen IG % 0.6 % Critically high 0.0-0.5 [facility] Comment on above: Performed By: #### C BC ####[facility] [address] [place], [place] [address]Dr. Lissy Allen LYMPH # 2.2 103/ul Normal 1.2-3.8 [facility] Comment on above: Performed By: #### C BC ####[facility] [address] [place], [place] [address]Dr. Lissy Allen Lymphocytes/100 WBC (Bld) 19.5 % Critically low 20.5-60.0 [facility] Comment on above: Performed By: #### C BC ####[facility] [address] [place], [place] [address]Dr. Lissy Allen MANUAL DIFF REQ NO Normal [facility] Comment on above: Performed By: #### C BC ####[facility] [address] [address]DrGale Allen MCH (RBC) [Entitic mass] 23.0 pg Critically low 26.7-34.0 [facility] Comment on above: Performed By: #### C BC ####[facility] [address] [place], [place] [address]DrGale Allen MCHC (RBC) [Mass/Vol] 29.7 g/dL Critically low 29.9-35.2 [facility] Comment on above: Performed By: #### C BC ####[facility] [address] [place], [place] [address]DrGale Allen MCV (RBC) [Entitic vol] 77.5 fL Critically low 81.0-99. 0 [facility] Comment on above: Performed By: #### C BC ####[facility] [address] [place], [place] [address]DrGale Allen MONO # 0.8 103/ul Normal 0.3-0.8 [facility] Comment on above: Performed By: #### C BC ####[facility] [address] [place], [place] [address]DrGale Allen Monocytes/100 WBC (Bld) 6.8 % Normal 1.7-12.0 [facility] Comment on above: Performed By: #### C BC ####[facility] [address] [place], [place] [address]DrGale Allen NEUT # 8.2 103/ul Critically high 1.4-6.5 [facility] Comment on above: Performed By: #### C BC ####[facility] [address] [place], [place] [address]DrGale Allen Neutrophils/100 WBC (Bld) 72.6 % Normal 43.0-75.0 [facility] Comment on above: Performed By: #### C BC ####[facility] [address] [place], [place] [address]DrGale Allen Platelet mean volume (Bld) [Entitic vol] 11.1 fL Normal 9.5-13.5 [facility] Comment on above: Performed By: #### C BC ####[facility] [address] [address]Dr. Lissy Allen PLT 265 103/ul Normal 150-450 [facility] Comment on above: Performed By: #### C BC ####[facility] [address] [address]Dr. Lissy Allen RBC 3.69 106/ul Critically low 4.20-5.40 [facility] Comment on above: Performed By: #### C BC ####[facility] [address] [address]Dr. Lissy Allen WBC 11.2 103/ul Critically high 4.0-11.0 [facility] Comment on above: Performed By: #### C BC ####[facility] [address] [address]Dr. Lissy Allen CREATININEon 03-30-2021 Creatinine [Mass/Vol] 0.60 mg/dL Normal 0.52-1.04 [facility] Comment on above: Performed By: #### A LT, AST, LIPA, CREA, NATALY, ELEC ####[facility] [address] [address]Dr. Lissy Allen EGFR-AF [place] >60 Normal >=60 [facility] Comment on above: Performed By: #### A LT, AST, LIPA, CREA, NATALY, ELEC ####[facility] [address] [address]Dr. Lissy Allen EGFR-NON AF [place] >60 Normal >=60 [facility] Comment on above: Performed By: #### A LT, AST, LIPA, CREA, NATALY, ELEC ####[facility] [address] [address]Dr. Lissy Allen DRUG SCREEN RAPID (URINE)on 03-30-2021 AMP Negative Normal NEGATIVE [facility] Comment on above: Performed By: #### D RUGRPD #### [facility] [address] [place] [address] Dr. Lissy Allen BAR Negative Normal NEGATIVE [facility] Comment on above: Performed By: #### D RUGRPD #### [facility] [address] [place] [address] Dr. Lissy Allen BUP Negative Normal NEGATIVE [facility] Comment on above: Performed By: #### D RUGRPD #### [facility] [address] [place] [address] Dr. Lissy Allen BZO Negative Normal NEGATIVE [facility] Comment on above: Performed By: #### D RUGRPD #### [facility] [address] [place] [address] Dr. Lissy Allen DAVID Negative Normal NEGATIVE [facility] Comment on above: Performed By: #### D RUGRPD #### [facility] [address] [place] [address] Dr. Lissy Allen CUT-OFFS SEE BELOW Normal [facility] Comment on above: Result Comment: AMP (Amphetamine): 500ng/mL, BAR (Barbituates): 200 ng/mL, BZO (Benzodiazepines): 150 ng/mL, BUP (Buprenorphine): 10 ng/mL, DAVID (Cocaine): 150 ng/mL, mAMP (Methamphetamine): 500 ng/mL, MTD (Methadone): 200 ng/mL, OPI (Opiates): 100 ng/mL, OXY (Oxycodone): 100 ng/mL, PCP (Phencyclidine): 25 ng/mL, PPX (Propoxyphene): 300 ng/mL, THC (Cannabinoids): 50 ng/mL, TCA (Trycyclic Antidepressants): 300 ng/mL Performed By: #### D RUGRPD #### [facility] [address] [place] [address] Dr. Lissy Allen DRUG CUT HEADER DRUG CLASS TEST SYSTEM CUT-OFF CONCENTRATIONS ARE FOLLOWS: Normal [facility] Comment on above: Performed By: #### D RUGRPD #### [facility] [address] [place] [address] Dr. Lissy Allen mAMP Negative Normal NEGATIVE The [facility] Comment on above: Performed By: #### D RUGRPD #### [facility] [address] [address] [address] Lissy Allen MTD Negative Normal NEGATIVE [facility] Comment on above: Performed By: #### D RUGRPD #### [facility] [address] [address] [address] Lissy Allen OPI Negative Normal NEGATIVE [facility] Comment on above: Performed By: #### D RUGRPD #### [facility] [address] [address] [address] Lissy Allen OXY Negative Normal NEGATIVE [facility] Comment on above: Performed By: #### D RUGRPD #### [facility] [address] [place] [address] Dr. Lissy Allen PCP Negative Normal NEGATIVE [facility] Comment on above: Performed By: #### D RUGRPD #### [facility] [address] [place] [address] Dr. Lissy Allen PPX Negative Normal NEGATIVE [facility] Comment on above: Performed By: #### D RUGRPD #### [facility] [address] [place] [address] Dr. Lissy Allen TCA Negative Normal NEGATIVE [facility] Comment on above: Performed By: #### D RUGRPD #### [facility] [address] [place] [address] Dr. Lissy Allen THC Negative Normal NEGATIVE [facility] Comment on above: Performed By: #### D RUGRPD #### [facility] [address] [place] [address] Dr. Lissy Allen ELECTROLYTESon 03-30-2021 Anion gap [Moles/Vol] 12.4 mmol/L Normal [facility] Comment on above: Performed By: #### A LT, AST, LIPA, CREA, NATALY, ELEC ####[facility] [address] [address]Dr. Lissy Allen Chloride [Moles/Vol] 105 mmol/L Normal 98-107 [facility] Comment on above: Performed By: #### A LT, AST, LIPA, CREA, NATALY, ELEC ####[facility] [address] [address]Dr. Lissy Allen CO2 [Moles/Vol] 23.5 mmol/L Normal 22.0-30.0 [facility] Comment on above: Performed By: #### A LT, AST, LIPA, CREA, NATALY, ELEC ####[facility] [address] [address]Dr. Lissy Allen Potassium [Moles/Vol] 3.9 mmol/L Normal 3.4-5.0 The [facility] Comment on above: Performed By: #### A LT, AST, LIPA, CREA, NATALY, ELEC ####[facility] [address] [address]Dr. Lissy Allen Sodium [Moles/Vol] 137 mmol/L Normal 137-145 [facility] Comment on above: Performed By: #### A LT, AST, LIPA, CREA, NATALY, ELEC ####[facility] [address] [place], [place] [address]Dr. Lissy Allen LIPASEon 03-30-2021 Lipase [Catalytic activity/Vol] 80.0 U/L Normal 23.0-300.0 The [facility] Comment on above: Performed By: #### A LT, AST, LIPA, CREA, NATALY, ELEC ####[facility] [address] [address]Dr. Lissy Allen SGOTon 03-30-2021 AST [Catalytic activity/Vol] 22 U/L Normal 14-36 The [facility] Comment on above: Performed By: #### A LT, AST, LIPA, CREA, NATALY, ELEC ####[facility] [address] [address]Dr. Lissy Allen SGPTon 03-30-2021 ALT [Catalytic activity/Vol] 16 U/L Normal 9-52 The [facility] Comment on above: Performed By: #### A LT, AST, LIPA, CREA, NATALY, ELEC ####[facility] [id number] [place], [place] [address]Dr. Lissy Allen UA (CLEAN/CATCH) MICROSCOPIC IF INDICATEon 03-30-2021 Bilirubin Ql (U) Negative Normal NEGATIVE [facility] Comment on above: Performed By: #### U ARMICR ####[facility] [address] [place], [place] [address]Dr. Lissy Allen Clarity (U) CLEAR Normal CLEAR The [facility] Comment on above: Performed By: #### U ARMICR ####[facility] [address] [place], [place] [address]Dr. Lissy Allen Color (U) LT. YELLOW Normal YELLOW [facility] Comment on above: Performed By: #### U ARMICR ####[facility] [address] [place], [place] [address]Dr. Lissy Allen Glucose Ql (U) Negative Normal NEGATIVE [facility] Comment on above: Performed By: #### U ARMICR ####[facility] [id number] [place], [place] [address]Dr. Lissy Allen Hemoglobin Ql (U) Negative Normal NEGATIVE [facility] Comment on above: Performed By: #### U ARMICR ####[facility] [address] [place], [place] [address]Dr. Lissy Allen Ketones Ql (U) Negative Normal NEGATIVE [facility] Comment on above: Performed By: #### U ARMICR ####[facility] [address] [place], [place] [address]Dr. Lissy Allen LEUKOCYTES Negative Normal NEGATIVE [facility] Comment on above: Performed By: #### U ARMICR ####[facility] [id number] [place], [place] [address]Dr. Lissy Allen Nitrite Ql (U) Negative Normal NEGATIVE [facility] Comment on above: Performed By: #### U ARMICR ####[facility] [address] [place], [place] [address]Dr. Lissy Allen pH (U) 6.0 [pH] Normal 5-9 [facility] Comment on above: Performed By: #### U ARMICR ####[facility] [address] [place], [place] [address]Dr. Lissy Allen SPEC GRAVITY 1.025 Normal 1.005-<=1.02 5 The [facility] Comment on above: Performed By: #### U ARMICR ####[facility] [address] [address]Dr. Lissy Allen UA PROTEIN Negative Normal NEGATIVE/ TRACE The [facility] Comment on above: Performed By: #### U ARMICR ####[facility] [address] [address]Dr. Lissy Allen UR MICRO IND NOT INDICATED Normal [facility] Comment on above: Performed By: #### U ARMICR ####[facility] [address] [address]Dr. Lissy Allen Urobilinogen Qn (U) 0.2 {Calderon'U}/dL Normal 0.2 - 1. 0 The [facility] Comment on above: Performed By: #### U ARMICR ####[facility] [address] [address]Dr. Lissy Allen US PREG BIOPHY W NON [...] DEVIN ANAND Date: 2021-03-29 13:04 Normal The [facility] US PREG BIOPHY W NON STRESSo n [...] by: DEVIN ALFARO Date: 2021-03-27 14:42 Normal [facility] US PREG BIOPHY W NON STRESSo n [...] by: DEVIN ANAND Date: 2021-03-25 07:49 Normal [facility] US PREG BIOPHY W NON STRESSo n [...] by: LUIS HART Date: 2021-03-24 14:45 Normal The [facility] US PREG UMBILICAL ARTERYon 0 03-24-2021 US [...] by: LUIS HART Date: 2021-03-24 13:37 Normal [facility] Vital Signs Date Time Vital Sign Value Performing Clinician Facility 10-09-2023 09:44-0400 Body temperature 97.16 [degF] Jewell [facility] 10-09-2023 09:44-0400 Diastolic blood pressure 88 mm[Hg] Jewell [facility] 10-09-2023 09:44-0400 Heart rate 88 /min Jewell [facility] 10-09-2023 09:44-0400 Respiratory rate 14 /min Jewell [facility] 10-09-2023 09:44-0400 SaO2% (BldA) [Mass fraction] 98 % [facility] 10-09-2023 09:44-0400 Systolic blood pressure 112 mm[Hg] Jewell [facility] 10-06-2023 22:00-0400 Heart rate 78 /min Andrea Ramin [facility] 10-06-2023 22:00-0400 SaO2% (BldA) [Mass fraction] 98 % Andrea Ramin [facility] 10-06-2023 21:30-0400 Diastolic blood pressure 70 mm[Hg] Andrea Ramin [facility] 10-06-2023 21:30-0400 Heart rate 70 /min Andrea Ramin [facility] 10-06-2023 21:30-0400 Mean blood pressure 81 mm[Hg] Andrea Ramin [facility] 10-06-2023 21:30-0400 Respiratory rate 16 /min Andrea Ramin [facility] 10-06-2023 21:30-0400 Systolic blood pressure 104 mm[Hg] Andrea Ramin [facility] 10-06-2023 21:00-0400 Diastolic blood pressure 73 mm[Hg] Andrea Ramin [facility] 10-06-2023 21:00-0400 Heart rate 71 /min Andrea Ramin [facility] 10-06-2023 21:00-0400 Mean blood pressure 83 mm[Hg] Andrea Ramin [facility] 10-06-2023 21:00-0400 Respiratory rate 15 /min Andrea Ramin [facility] 10-06-2023 20:00-0400 Diastolic blood pressure 88 mm[Hg] Andrea Ramin [facility] 10-06-2023 20:00-0400 Mean blood pressure 97 mm[Hg] Andrea Ramin [facility] 10-06-2023 20:00-0400 Systolic blood pressure 115 mm[Hg] Andrea Ramin [facility] 10-06-2023 19:11-0400 Body temperature 98.42 [degF] Andrea Ramin [facility] 10-06-2023 19:11-0400 Heart rate 81 /min Andrea Ramin [facility] 10-06-2023 19:11-0400 Respiratory rate 20 /min Andrea Ramin [facility] 10-06-2023 19:11-0400 SaO2% (BldA) [Mass fraction] 100 % Andrea Ramin [facility] 05-15-2023 12:59-0500 Blood Pressure Location Jewell Rizviant [facility] 05-15-2023 12:59-0500 Body temperature 98.06 [degF] [facility]ell [facility] 05-15-2023 12:59-0500 Diastolic blood pressure 74 mm[Hg] Jewell [facility] 05-15-2023 12:59-0500 Heart rate 93 /min Jewell [facility] 05-15-2023 12:59-0500 Respiratory rate 16 /min Jewell [facility] 05-15-2023 12:59-0500 SaO2% (BldA) [Mass fraction] 98 % [facility] 05-15-2023 12:59-0500 Systolic blood pressure 132 mm[Hg] Jewell [facility] 05-09-2023 18:21-0500 Hourly Rounding Jamie Steven [facility] 05-09-2023 18:21-0500 Promise to Return Jamie Steven [facility] 05-09-2023 17:21-0500 Hourly Rounding Jamie Steven [facility] 05-09-2023 17:21-0500 Promise to Return Jamie Steven [facility] 05-09-2023 16:22-0500 Hourly Rounding Jamie Steven [facility] 05-09-2023 16:22-0500 Promise to Return Jamie Steven [facility] 05-09-2023 15:00-0500 Diastolic blood pressure 61 mm[Hg] Jamie Steven [facility] 05-09-2023 15:00-0500 Heart rate 63 /min Jamie Steven [facility] 05-09-2023 15:00-0500 SaO2% (BldA) [Mass fraction] 97 % Jamie Steven [facility] 05-09-2023 15:00-0500 Systolic blood pressure 97 mm[Hg] Jamie Steven [facility] 05-09-2023 11:55-0500 Heart rate 87 /min Jamie Steven [facility] 05-09-2023 11:55-0500 SaO2% (BldA) [Mass fraction] 96 % Jamie Steven [facility] 05-09-2023 11:53-0500 Body temperature 97.7 [degF] Jamie Steven [facility] 05-09-2023 11:53-0500 Diastolic blood pressure 71 mm[Hg] Jamie Scalesidge [facility] 05-09-2023 11:53-0500 Mean blood pressure 83 mm[Hg] Jamie Scalesidge [facility] 05-09-2023 11:53-0500 Systolic blood pressure 109 mm[Hg] Jamie Steven [facility] 05-09-2023 10:35-0500 Diastolic blood pressure 93 mm[Hg] Jamie Scalesidge [facility] 05-09-2023 10:35-0500 Heart rate 93 /min Jamie Steven [facility] 05-09-2023 10:35-0500 Mean blood pressure 108 mm[Hg] Jamie Steven [facility] 05-09-2023 10:35-0500 SaO2% (BldA) [Mass fraction] 98 % Jamie Steven [facility] 05-09-2023 10:35-0500 Systolic blood pressure 137 mm[Hg] Jamie Steven [facility] 05-09-2023 09:47-0500 Body temperature 97.52 [degF] Jamie Steven [facility] 05-09-2023 09:47-0500 Mean blood pressure 85 mm[Hg] Jamie Scalesidge [facility] 05-09-2023 09:47-0500 Respiratory rate 15 /min Jamie Scalesidge [facility] 05-09-2023 09:45-0500 Mean blood pressure 85 mm[Hg] Jamie Scalesidge [facility] 05-09-2023 09:45-0500 Respiratory rate 14 /min Jamie Scalesidge [facility] 05-09-2023 09:40-0500 Respiratory rate 16 /min Jamie Claridge [facility] 05-09-2023 09:32-0500 Body temperature 97.16 [degF] Jamiealex Scalesidge [facility] 05-09-2023 09:25-0500 Respiratory rate 12 /min Jamie Steven [facility] 05-09-2023 09:20-0500 Respiratory rate 11 /min Jamie Scalesidge [facility] 05-09-2023 09:15-0500 Respiratory rate 15 /min Jamie Steven [facility] 05-09-2023 04:20-0500 Blood Pressure Location Jamie Steven [facility] 05-09-2023 04:20-0500 Body temperature 98.42 [degF] Jamie Steven [facility] 05-09-2023 01:53-0500 Blood Pressure Location Jamie Steven [facility] 05-09-2023 01:53-0500 Body temperature 97.88 [degF] Jamie Steven [facility] 05-09-2023 01:53-0500 Heart rate 78 /min Jamie Steven [facility] 05-09-2023 01:45-0500 Mean blood pressure 94 mm[Hg] Jamie Steven [facility] 05-09-2023 00:00-0500 Body temperature 100.04 [degF] Jamie Scalesidge [facility] 05-08-2023 23:03-0500 Body temperature 100.94 [degF] Jamie Scalesidge [facility] 05-08-2023 23:03-0500 Heart rate 87 /min Jamie Scalesidge [facility] 05-02-2023 08:19-0500 Body temperature 97.88 [degF] Adolph Aleman [facility] 05-02-2023 08:19-0500 Diastolic blood pressure 77 mm[Hg] [facility] 05-02-2023 08:19-0500 Heart rate 92 /min [facility] 05-02-2023 08:19-0500 Respiratory rate 18 /min [facility] 05-02-2023 08:19-0500 SaO2% (BldA) [Mass fraction] 94 % [facility] 05-02-2023 08:19-0500 Systolic blood pressure 124 mm[Hg] [facility] 04-23-2023 19:18-0500 Body temperature 98.06 [degF] Andrea Ramin [facility] 04-23-2023 19:18-0500 Diastolic blood pressure 82 mm[Hg] Andrea Ramin [facility] 04-23-2023 19:18-0500 Heart rate 71 /min Andrea Ramin [facility] 04-23-2023 19:18-0500 Respiratory rate 20 /min Andrea Ramin [facility] 04-23-2023 19:18-0500 SaO2% (BldA) [Mass fraction] 98 % Andrea Ramin [facility] 04-23-2023 19:18-0500 Systolic blood pressure 120 mm[Hg] Andrea Ramin [facility] 02-03-2023 00:18-0500 Diastolic blood pressure 88 mm[Hg] Kaylinn Dokken [facility] 02-03-2023 00:18-0500 Heart rate 65 /min Kaylinn Dokken [facility] 02-03-2023 00:18-0500 Mean blood pressure 96 mm[Hg] Kaylinn Dokken [facility] 02-03-2023 00:18-0500 Respiratory rate 18 /min Kaylinn Dokken [facility] 02-03-2023 00:18-0500 SaO2% (BldA) [Mass fraction] 99 % Kaylinn Dokken [facility] 02-03-2023 00:18-0500 Systolic blood pressure 112 mm[Hg] Kaylinn Dokken [facility] 02-02-2023 21:07-0500 Body temperature 97.88 [degF] Kaylinn Dokken [facility] 02-02-2023 21:07-0500 Diastolic blood pressure 101 mm[Hg] Kaylinn Dokken [facility] 02-02-2023 21:07-0500 Heart rate 112 /min Rositaylinn Dokken [facility] 02-02-2023 21:07-0500 Respiratory rate 16 /min Rositaylinn Dokken [facility] 02-02-2023 21:07-0500 SaO2% (BldA) [Mass fraction] 100 % Rositaylinn Dokken [facility] 02-02-2023 21:07-0500 Systolic blood pressure 138 mm[Hg] Kaylinn Dokken [facility] 10-16-2022 14:13-0400 Blood Pressure Location Jewell [facility] 10-16-2022 14:13-0400 Body temperature 96.44 [degF] Jewell Monzon [facility] 10-16-2022 14:13-0400 Diastolic blood pressure 78 mm[Hg] Jewell [facility] 10-16-2022 14:13-0400 Heart rate 78 /min Jewell [facility] 10-16-2022 14:13-0400 Respiratory rate 18 /min Jewell [facility] 10-16-2022 14:13-0400 SaO2% (BldA) [Mass fraction] 99 % [facility] 10-16-2022 14:13-0400 Systolic blood pressure 118 mm[Hg] Jewell [facility] 07-10-2022 14:44-0400 Blood Pressure Location MARCIA SIDELL [facility] 07-10-2022 14:44-0400 Body temperature 98.24 [degF] MARCIA SIDELL [facility] 07-10-2022 14:44-0400 Diastolic blood pressure 72 mm[Hg] MARCIA SIDELL [facility] 07-10-2022 14:44-0400 Heart rate 105 /min MARCIA SIDELL [facility] 07-10-2022 14:44-0400 SaO2% (BldA) [Mass fraction] 99 % MARCIA SIDELL [facility] 07-10-2022 14:44-0400 Systolic blood pressure 114 mm[Hg] MARCIA SIDELL [facility] 03-02-2022 14:15-0500 Diastolic blood pressure 83 mm[Hg] Candy Mora DDS Work Phone: [employer] 03-02-2022 14:15-0500 Heart rate 65 /min Candy Mora DDS Work Phone: [employer] 03-02-2022 14:15-0500 Respiratory rate 20 /min Candy Mora DDS Work Phone: [employer] 03-02-2022 14:15-0500 SaO2% (BldA) [Mass fraction] 98 % Candy Moar DDS Work Phone: [employer] 03-02-2022 14:15-0500 Systolic blood pressure 116 mm[Hg] Candy Mora CATALINOS Work Phone: [facility] 03-02-2022 13:57-0500 Body temperature 97.39 [degF] Candy Mora CATALINOS Work Phone: [employer] 03-02-2022 11:53-0500 Body height 165.1 cm Candy Mora DDS Work Phone: [employer] 03-02-2022 11:53-0500 Body mass index (BMI) [Ratio] 34.11 kg/m2 Candy Mora CATALINOS Work Phone: [employer] 03-02-2022 11:53-0500 Body weight 92.99 kg Candy Mora DDS Work Phone: [facility] 02-19-2022 07:14-0500 Diastolic blood pressure 83 mm[Hg] Andrea Ramin [facility] 02-19-2022 07:14-0500 Heart rate 78 /min Andrea Ramin [facility] 02-19-2022 07:14-0500 Respiratory rate 16 /min Andrea Ramin [facility] 02-19-2022 07:14-0500 SaO2% (BldA) [Mass fraction] 99 % Andrea Ramin [facility] 02-19-2022 07:14-0500 Systolic blood pressure 121 mm[Hg] Andrea Ramin [facility] 02-19-2022 05:40-0500 Body temperature 97.7 [degF] Andrea Ramin [facility] 02-19-2022 05:40-0500 Diastolic blood pressure 85 mm[Hg] Andrea Ramin [facility] 02-19-2022 05:40-0500 Heart rate 89 /min Andrea Ramin [facility] 02-19-2022 05:40-0500 Respiratory rate 16 /min Andrea Ramin [facility] 02-19-2022 05:40-0500 SaO2% (BldA) [Mass fraction] 100 % Andrea Ramin [facility] 02-19-2022 05:40-0500 Systolic blood pressure 129 mm[Hg] Andrea Ramin [facility] 02-16-2022 11:00-0500 Body height 165.1 cm [facility] 02-16-2022 11:00-0500 Body mass index (BMI) [Ratio] 34.11 kg/m2 [facility] 02-16-2022 11:00-0500 Body weight 92.99 kg [facility] 02-04-2022 10:22-0500 Body temperature 97.7 [degF] Reece Yip [facility] 02-04-2022 10:22-0500 Diastolic blood pressure 70 mm[Hg] Reece Yip [facility] 02-04-2022 10:22-0500 Heart rate 81 /min Reece Yip [facility] 02-04-2022 10:22-0500 Respiratory rate 16 /min Reece Yip [facility] 02-04-2022 10:22-0500 SaO2% (BldA) [Mass fraction] 98 % Reece Yip [facility] 02-04-2022 10:22-0500 Systolic blood pressure 132 mm[Hg] Reece Yip [facility] 01-16-2022 14:31-0400 Body height 165.1 cm Candy oMra DDS Work Phone: [employer] 01-16-2022 14:31-0400 Body mass index (BMI) [Ratio] 33.78 kg/m2 Candy Mora DDS Work Phone: [employer] 01-16-2022 14:31-0400 Body temperature 98.01 [degF] Candy Mora DDS Work Phone: [employer] 01-16-2022 14:31-0400 Body weight 92.08 kg Candy Mora DDS Work Phone: [employer] 01-16-2022 14:31-0400 Diastolic blood pressure 81 mm[Hg] Candy Mora DDS Work Phone: [employer] 01-16-2022 14:31-0400 Heart rate 105 /min Candy Mora DDS Work Phone: [employer] 01-16-2022 14:31-0400 Respiratory rate 14 /min Candy Mora DDS Work Phone: [employer] 01-16-2022 14:31-0400 SaO2% (BldA) [Mass fraction] 99 % Candy Mora DDS Work Phone: [employer] 01-16-2022 14:31-0400 Systolic blood pressure 105 mm[Hg] Candy Mora DDS Work Phone: [employer] 08-27-2021 08:32-0400 Body temperature 98.24 [degF] Lane Berger [facility] 08-27-2021 08:32-0400 Diastolic blood pressure 63 mm[Hg] Lane Berger [facility] 08-27-2021 08:32-0400 Heart rate 78 /min Lane Berger [facility] 08-27-2021 08:32-0400 Respiratory rate 20 /min Lane Berger [facility] 08-27-2021 08:32-0400 SaO2% (BldA) [Mass fraction] 98 % Lane Berger [facility] 08-27-2021 08:32-0400 Systolic blood pressure 113 mm[Hg] Lane Berger [facility] Encounters Encounter Date Encounter Type Care Provider Facility Start: 04-29-2024 End: 04-29-2024 ambulatory Ramona Monsivais MD Work Phone: [facility] Work Phone: Start: 04-29-2024 End: 04-29-2024 Patient encounter procedure Ramona Monsivais MD Work Phone: [facility] Main [place] Work Phone: Start: 04-23-2024 End: 04-23-2024 ambulatory Camryn Barros Facility:[facility] Start: 04-23-2024 End: 04-23-2024 Patient encounter procedure Venus Subramanian [facility] Start: 04-09-2024 End: 04-09-2024 ambulatory Camrynramsey Barros Facility:[facility] Start: 04-09-2024 End: 04-09-2024 Patient encounter procedure Camryn Barros [facility] Start: 03-15-2024 End: 03-15-2024 ambulatory NON STAFF Facility:[facility] Start: 03-15-2024 End: 03-15-2024 Departed Referred Ramona Monsivais MD Work Phone: [facility] Start: 03-14-2024 End: 03-14-2024 ambulatory MSN, LINING FOLDER-MICROFILM CLERK Jewell Monzon Facility:[facility] Start: 03-14-2024 End: 03-14-2024 Patient encounter procedure Jewell Monzon [facility] Start: 03-04-2024 End: 03-04-2024 ambulatory MSN, LINING FOLDER-MICROFILM CLERK Jewell Monzon Facility:[facility] Start: 03-04-2024 End: 03-04-2024 Patient encounter procedure Jewell Monzon [facility] Start: 02-29-2024 End: 02-29-2024 ambulatory MSN, LINING FOLDER-MICROFILM CLERK Jewell Monzon Facility:[facility] Start: 02-29-2024 End: 02-29-2024 Off-Site Jewell Monzon [facility] Start: 02-25-2024 Non-patient / Non-visit Yudelka Monsivais MD [facility] Phone[facility] Work Phone: Start: 01-08-2024 End: 01-08-2024 ambulatory MICROFILM CLERK MO BARNARD Facility:[facility] Start: 10-16-2023 End: 10-17-2023 Pre-admission assessment Jewell Monzon [facility] Start: 10-09-2023 End: 10-09-2023 ambulatory MSN, LINING FOLDER-MICROFILM CLERK Jewell Monzon Facility: [facility] Start: 10-09-2023 End: 10-09-2023 Patient encounter procedure Jewell Monzon [facility] Start: 10-08-2023 End: 10-08-2023 ambulatory Jewell Monzon Facility: [facility] Start: 10-08-2023 End: 10-08-2023 Patient encounter procedure Jewell Monzon [facility] Start: 10-06-2023 End: 10-06-2023 Emergency department patient visit Andrea Encinas Ramin [facility] Start: 09-17-2023 End: 09-17-2023 ambulatory ANDREY BEBETO Not Available Start: 08-09-2023 End: 08-09-2023 ambulatory [facility] Start: 08-09-2023 End: 08-09-2023 Patient encounter procedure Smitha Wetzel [facility] Start: 08-08-2023 End: 08-08-2023 ambulatory NATALY PERLA Not Available Start: 07-11-2023 End: 07-11-2023 ambulatory ANDREY BEBETO Not Available Start: 05-15-2023 End: 05-15-2023 ambulatory MSN, LINING FOLDER-MICROFILM CLERK Jewell Monzon Facility: [facility] Start: 05-15-2023 End: 05-15-2023 Patient encounter procedure Jewell Monzon [facility] Start: 05-10-2023 End: 06-11-2023 ambulatory MSN, LINING FOLDER-MICROFILM CLERK Jewell Monzon Facility:CD:[id number] Start: 05-08-2023 End: 05-09-2023 ambulatory Jamie Steven Facility[facility] Start: 05-08-2023 End: 05-09-2023 Observation Jamie Steven [facility] Start: 05-02-2023 End: 05-02-2023 Emergency department patient visit Adolph Aleman [facility] Start: 04-23-2023 End: 04-23-2023 Emergency department patient visit Andrea Reesener [facility] Start: 04-04-2023 End: 04-04-2023 ambulatory MSN, LINING FOLDER-MICROFILM CLERK Jewell Monzon Facility:[facility] Start: 03-27-2023 End: 03-27-2023 ambulatory MSN, LINING FOLDER-MICROFILM CLERK Jewell Monzon Facility:[facility] Start: 03-27-2023 End: 03-27-2023 Patient encounter procedure Jewell Monzon [facility] Start: 02-02-2023 End: 02-03-2023 Emergency department patient visit Earline Bond [facility] Start: 10-16-2022 End: 10-16-2022 Patient encounter procedure Jewell Monzon [facility] Start: 09-08-2022 End: 09-08-2022 Patient encounter procedure MARCIA JUAREZ [facility] Start: 07-10-2022 End: 07-10-2022 Patient encounter procedure MARCIA JUAREZ [facility] [place] Start: 03-20-2022 Letter encounter Ellie pollardmelo Start: 03-14-2022 End: 03-14-2022 Follow-up encounter Oral Surgery [employer] Work Phone: [facility] Oral Surgery Start: 03-14-2022 End: 03-14-2022 Telemedicine consultation with patient Oral [employer] Work Phone: [facility] Oral Surgery Comment on above: Post-operative state (Primary Dx) Start: 03-14-2022 End: 03-15-2022 ambulatory UNKNOWN PROVIDER Facility:[facility] Start: 03-02-2022 End: 03-02-2022 ambulatory CANDY MORA Facility:[facility] Start: 03-02-2022 End: 03-02-2022 Subsequent hospital visit by physician Candy Mora DDS Work Phone: [facility] OR Comment on above: 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) Start: 02-23-2022 Telephone encounter Ashley hurd RN [facility] Pre Surgical Evaluation Comment on above: Pre-surgical Evaluat ion ( Pre-op COVID testing not needed ) Start: 02-19-2022 End: 02-19-2022 Emergency department patient visit Andrea Faustin [facility] Start: 02-16-2022 ambulatory [facility] Start: 02-16-2022 Encounter for other preprocedural examination UNKNOWN PROVIDER [facility] Start: 02-15-2022 End: 02-15-2022 Nursing evaluation of patient and report [facility] Comment on above: Preop examination (P rimary Dx) Start: 02-15-2022 End: 02-15-2022 Preprocedural examination done [facility] Start: 02-15-2022 Telephone encounter Katherine Thrasher RN Work Phone: [facility] Pre [facility] Evaluation Comment on above: Pre-surgical Evaluat ion (Not available/) Start: 02-04-2022 End: 02-04-2022 Emergency department patient visit Reece Yip [facility] Start: 01-30-2022 Letter encounter [facility] tony [employer] Start: 01-16-2022 End: 01-18-2022 ambulatory UNKNOWN PROVIDER Facility:[facility] Start: 01-16-2022 End: 01-16-2022 Patient encounter procedure Candy Mora DDS Work Phone: [facility] Oral Surgery Comment on above: 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); Body mass index (BMI) 33.0-33.9, adult Start: 12-27-2021 ambulatory NAN LUCIEN Facility: [facility] Start: 12-19-2021 Letter encounter Ellie pollard Start: 12-15-2021 End: 12-15-2021 ambulatory NAN LUCIEN Facility:[facility] Start: 11-09-2021 ambulatory NAN LUCIEN Facility: [facility] Start: 09-29-2021 End: 10-03-2021 Patient encounter procedure Jayme Marquez DDS Work Phone: [facility] Comment on above: Caries (Primary Dx) Start: 09-29-2021 End: 10-03-2021 ambulatory UNKNOWN PROVIDER Facility:[facility] Start: 09-28-2021 End: 09-30-2021 ambulatory UNKNOWN PROVIDER Facility:[facility] Start: 09-28-2021 End: 09-30-2021 Patient encounter procedure Jayme Marquez DDS Work Phone: [facility] Start: 08-27-2021 End: 08-27-2021 Emergency department patient visit Lane Berger [facility] Start: 04-19-[address] DOCTOR MATHEWS Facility :[facility] Start: 04-12-2021 End: 04-12-[address] ANDREY ARTHUR Facility:[facility] Start: 04-08-2021 End: 04-08-2021 ambulatory AMBER LUNSFORD Facility:[facility] Start: 04-06-2021 End: 07-05-2021 Patient encounter procedure Lissy Allen [facility] Start: 04-06-[address] ANDREY ARTHUR Facility :[facility] Start: 04-04-2021 End: 04-05-[address] DOCTOR MATHEWS Facility:[facility] Start: 04-01-2021 End: 04-01-[address] ANDREY ARTHUR Facility:[facility] Start: 03-30-2021 End: 03-31-[address] ANDREY ARTHUR Facility:[facility] Start: 03-29-2021 End: 03-29-[address] ANDREY ARTHUR Facility:[facility] Start: 03-27-2021 End: 03-27-[address] RUDDY HERNÁNDEZ Facility:[facility] Start: 03-24-2021 End: 03-25-[address] DOCTOR MATHEWS Facility:[facility] Start: 03-23-2021 End: 03-23-[address] DOCTOR MATHEWS Facility:[facility] Start: 05-31-2020 RhD negative Lissy Allen [facility] Start: 12-27-2018 End: 12-27-2018 Subsequent hospital visit by physician Raymond Moyer [facility] Procedures Date Procedure Procedure Detail Performing Clinician Start: 03-15-2024 Urine culture Ramona Monsivais MD Work Phone: Start: 05-09-2023 Laparoscopic appendectomy Jamie Steven Start: 03-02-2022 Urine test visual color cmprsn meths Bhavesh Cameron DMD Work Phone: section Lissy Allen section Lissy Allen Fracture of mandible , closed (disorder) Lissy Allen History of appendectomy S/P appendectomy Jewell Monzon Plan of Treatment Date Care Activity Detail Author Start: 2048 Shingles (RZV) Vacci ne (1 of 2) Shingles (RZV) Vaccine (1 of 2) [facility] Start: 01-08-2027 Tetanus vaccination Tetanus (T d or Tdap) Booster [facility] Start: 03-15-2022 End: 03-15-2022 Telemedicine consultation with patient 03/15/2022 Telemedicine Oral Surgery Candy Mora S [address] [place] [id number] [facility] Start: 03-14-2022 End: 03-14-2022 Telemedicine consultation with patient 03/14/2022 Telemedicine Oral Surgery [facility] Start: 03-02-2022 End: 03-02-2022 EXTRACTION, TOOTH EXTRACTION, TOOTH Routine scheduled 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 03/02/2022 1:[address] Start: 03-02-2022 End: 03-02-2022 Admission to same day surgery center 03/02/2022 Surgery Ambulatory Surgery Candy Mora [address] [address] EXTRACTION, TOOTH - #2, 15, 18, 19, 20, [address] [facility] [place] Comment on above: EXTRACTION, TOOTH - #2, 15, 18, 19, 20, 30 Start: 03-02-2022 End: 03-02-2022 EXTRACTION, TOOTH EXTRACTION, TOOTH Routine scheduled 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 03/02/2022 11:[address] Start: 03-02-2022 Subsequent hospital visit by physician 03/02/2022 Hospital Encounter Ambulatory Surgery Candy Mora Jose Manuel [address] [place] [id number] [facility] [place] Start: 03-02-2022 End: 03-02-2022 Admission to same day surgery center 03/02/2022 Surgery Ambulatory Surgery Candy Mora Jose Manuel [address] [place] [id number] EXTRACTION, TOOTH - #2, 15, 18, 19, 20, 30 [facility] Ambulatory Surgery Comment on above: EXTRACTION, TOOTH - #2, 15, 18, 19, 20, 30 Start: 03-02-2022 End: 03-02-2022 EXTRACTION, TOOTH EXTRACTION, TOOTH Routine scheduled 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 03/02/2022 9:51 AM EST [facility] Start: 03-02-2022 Subsequent hospital visit by physician 03/02/2022 Hospital Encounter Ambulatory Surgery Candy Mora, DDS [address] [place] [address] [facility] Ambulatory Surgery Start: 02-15-2022 End: 02-15-2022 Nursing evaluation of patient and report 02/15/2022 Nurse Visit Presurgical Evaluation [facility] Pre Surgical Evaluation Start: 01-16-2022 End: 01-16-2022 Patient encounter procedure 01/16/2022 Office Visit Oral Surgery Candy Mora, CATALINOS [address] [place] [address] [facility] Start: 12-17-2021 Influenza vaccination Influenza Vacc ine (#1) [facility] Start: 10-15-2020 COVID-19 Vaccine (2 - Booster for Ilda series) COVID-19 Vaccine (2 - Booster for Ilda series) [facility] Start: 06-16-2019 Screening for malign ant neoplasm of cervix Pap Smear [facility] Start: 01-03-2019 End: 01-03-2019 Appointment 01/03/2019 Appointment Psychiatry Noreen Jacobo, [facility] Start: 11-17-2018 Influenza vaccination Flu vaccine (# 1) [place], [place] Start: 2017 DTaP/Tdap/Td vaccine (1 - Tdap) DTaP/Tdap/Td vaccine (1 - Tdap) [place], [place] Start: 2016 Hepatitis C screening Hepatitis C An tibody [facility] Start: 2016 Screening for Chlamy kentrell trachomatis STI Screening (Age 18-24) [facility] Start: 2014 Chlamydia screen Chlamydia screen [place], [place] Start: 2014 Meningococcal B (Bexsero,OMV) Vaccine (Optional,16-23 years) (#1) Meningococcal B (Bexsero,OMV) Vaccine (Optional,16-23 years) (#1) [facility] Start: 2013 HIV screen HIV screen [place], [place] Start: 2013 HIV screening HIV Test [facility] Start: 2013 HPV vaccine (1 - Fem shayna 3-dose series) HPV vaccine (1 - Female 3-dose series) [place], [place] Start: 06-16-2011 Varicella Vaccine (1 of 2 - 13+ 2-dose series) Varicella Vaccine (1 of 2 - 13+ 2-dose series) [place], [place] extraction, erupted tooth or exposed root (elevation and/or forceps removal) EXTRACTION ERUPTED TOOTH/EXR Procedures Routine 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 Ordered: 03/02/2022 [facility] Work Phone: Comment on above: Ordered: 03/02/2022 EXTRACTION, TOOTH EXTRACTION, TO OTH Routine scheduled 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 [facility] Immunizations Immunization Date Immunization Notes Care Provider Wilver rodrigues 08-20-2020 [facility] SARS-COV-2 (COVID-19) vaccine, vector non-replicating, recombinant spike protein-[id number], preservative free, 0.5 mL (MDM=886) Jayme Marquez Webee Work Phone: [facility] Comment on above: Result Comment: 2022: TPVAL 01-08-2017 tetanus toxoid, redu allegra diphtheria toxoid, and acellular pertussis vaccine, adsorbed; Translations: [Adacel (Tdap)] Darcyshawna Alejandro [facility] 05-10-2015 hepatitis A vaccine, pediatric/adolescent dosage, 2 dose schedule Jayme Marquez Webee Work Phone: [facility] 05-10-2015 hepatitis A vaccine, unspecified formulation MARCIA JUAREZ [facility] 05-10-2015 HPV, unspecified formulation MARCIA JUAREZ [facility] 05-10-2015 human papilloma viru s vaccine, quadrivalent [facility] Work [facility] 10-30-2014 hepatitis A vaccine, pediatric/adolescent dosage, 2 dose schedule Jaymezoila Benitezi DDS Work Phone: [facility] 10-30-2014 hepatitis A vaccine, unspecified formulation MARCIA SIDELL [facility] 10-30-2014 HPV, unspecified formulation MARCIA SIDELL [facility] 10-30-2014 human papilloma viru s vaccine, quadrivalent [facility] Work [facility]: [facility] 10-30-2014 measles, mumps and rubella virus vaccine [facility] SkwiblS Work Phone: [facility] 10-30-2014 meningococcal ACWY vaccine, unspecified formulation MARCIA SIDELL [facility] 10-30-2014 meningococcal polysaccharide (groups A, C, Y and W-135) diphtheria toxoid conjugate vaccine (MCV4P) [facility] Work Phone: [facility] 11-07-2010 HPV, unspecified formulation [facility] Work [facility]: [facility] 11-07-2010 tetanus toxoid, redu allegra diphtheria toxoid, and acellular pertussis vaccine, adsorbed [facility] Sk[employer] Work Phone: [facility] 12-16-1999 diphtheria, tetanus toxoids and acellular pertussis vaccine, unspecified formulation [facility] DDS Work Phone: [facility] 12-16-1999 DTaP, unspecified formulation MARCIA SIDELL [facility] 12-16-1999 pneumococcal conjuga te vaccine, 13 valent MARCIA SIDELL [facility] 12-16-1999 pneumococcal conjuga te vaccine, 7 valent Jayme Al-Mashni DDS Work Phone: [facility] 09-14-1999 diphtheria, tetanus toxoids and acellular pertussis vaccine, unspecified formulation Jayme Al-Mashni DDS Work Phone: [facility] 09-14-1999 DTaP, unspecified formulation MARCIA SIDELL [facility] 09-14-1999 haemophilus influenz ae type b vaccine, PRP-OMP conjugate Jayme Al-Mashni DDS Work Phone: [facility] 09-14-1999 hepatitis B vaccine, pediatric or pediatric/adolescent dosage Jayme Al-Mashni DDS Work Phone: [facility] 09-14-1999 measles, mumps and rubella virus vaccine Jayme Al-Mashni DDS Work Phone: [facility] 09-14-1999 poliovirus vaccine, inactivated Jayme Al-Mashni DDS Work Phone: [facility] 09-14-1999 poliovirus vaccine, unspecified formulation MARCIA SIDELL [facility] 09-14-1999 varicella virus vaccine Lait h Al-Mashni DDS Work Phone: [facility] 1998 diphtheria, tetanus toxoids and acellular pertussis vaccine, unspecified formulation Jayme Al-Mashni DDS Work Phone: [facility] 1998 DTaP, unspecified formulation MARCIA SIDELL [facility] 1998 haemophilus influenz ae type b vaccine, PRP-OMP conjugate Jayme Al-Mashni DDS Work Phone: [facility] 1998 poliovirus vaccine, inactivated Jayme Al-Mashni DDS Work Phone: [facility] 1998 poliovirus vaccine, unspecified formulation MARCIA SIDELL [facility] 1998 diphtheria, tetanus toxoids and acellular pertussis vaccine, unspecified formulation Jayme Benitezi DDS Work Phone: [facility] 1998 DTaP, unspecified formulation MARCIA SIDELL [facility] 1998 haemophilus influenz ae type b vaccine, PRP-OMP conjugate Jayme Cotton-Sandyi DDS Work Phone: [facility] 1998 hepatitis B vaccine, pediatric or pediatric/adolescent dosage Jayme Al-Sandyi DDS Work Phone: [facility] 1998 poliovirus vaccine, inactivated Jaymezoila Benitezi DDS Work Phone: [facility] 1998 poliovirus vaccine, unspecified formulation MARCIA SIDELL [facility] 1998 hepatitis B vaccine, pediatric or pediatric/adolescent dosage Jayme Al-Sandyi DDS Work Phone: [facility] NEGATED: Highlighted row has not occurred!04-09-2024 influenza virus vaccine, unspecified formulation Camryn Barros [facility] Payers Date Payer Category Payer Self-pay 2023 Private Health Insurance [id number] 2021 Medicaid [id number] 2011 Medicaid [id number] 1998 Unknown [id number] 2.16.84 0.1.784304.3.579.2.593 1998 Unknown [id number] 2.16.84 0.1.507738.3.579.2.593 1998 Unknown [id number] 2.16.84 0.1.096442.3.579.2.593 1998 Unknown [id number] 2.16.84 0.1.842131.3.579.2.593 1998 Unknown [id number] 2.16.84 0.1.335691.3.579.2.593 1998 Unknown [id number] 2.16.84 0.1.297600.3.579.2.593 1998 Unknown [id number] 2.16.84 0.1.250366.3.579.2.593 1998 Unknown [id number] 2.16.84 0.1.282399.3.579.2.593 1998 Unknown [id number] 2.16.84 0.1.656690.3.579.2.593 1998 Unknown [id number] 2.16.84 0.1.866932.3.579.2.593 1998 Unknown [id number] 2.16.84 0.1.694209.3.579.2.593 1998 Unknown [id number] 2.16.84 0.1.213720.3.579.2.593 1998 Unknown [id number] 2.16.84 0.1.823122.3.579.2.593 1998 Unknown [id number] 2.16.84 0.1.503566.3.579.2.593 1998 Unknown [id number] 2.16.84 0.1.233120.3.579.2.593 1998 Unknown [id number] 2.16. 840.1.936865.3.579.2.732 1998 Unknown [id number] 2.16. 840.1.107751.3.579.2.732 1998 Unknown [id number] 2.16. 840.1.763121.3.579.2.732 1998 Unknown [id number] 2.16. 840.1.037203.3.579.2.732 1998 Unknown [id number] 2.16. 840.1.214283.3.579.2.732 1998 Unknown [id number] 2.16. 840.1.831086.3.579.2.732 1998 Unknown [id number] 2.16.84 0.1.510129.3.579.2.1259 1998 Unknown [id number] 2.16.84 0.1.756633.3.579.2.1259 1998 Unknown [id number] 2.16.84 0.1.207516.3.579.2.1259 1998 Unknown [id number] 2.16.8 40.1.252020.3.579.2.727 1998 Unknown [id number] 2.16.8 40.1.380176.3.579.2.727 1998 Unknown [id number] 2.16.8 40.1.257348.3.579.2.727 1998 Unknown [id number] 2.16.8 40.1.537259.3.579.2.727 1998 Unknown [id number] 2.16.8 40.1.875987.3.579.2.727 1998 Unknown [id number] 2.16.8 40.1.343416.3.579.2.727 1998 Unknown [id number] 2.16.8 40.1.617795.3.579.2.727 1998 Unknown [id number] 2.16.8 40.1.272025.3.579.2.727 1998 Unknown [id number] 2.16.8 40.1.718784.3.579.2.727 1998 Unknown [id number] 2.16.8 40.1.031991.3.579.2.727 1998 Unknown [id number] 2.16.8 40.1.065856.3.579.2.727 1998 Unknown [id number] 2.16.8 40.1.805999.3.579.2.727 1998 Unknown [id number] 2.16.8 40.1.853157.3.579.2.727 1998 Unknown [id number] 2.16.8 40.1.455327.3.579.2.727 1998 Unknown [id number] 2.16.8 40.1.605294.3.579.2.727 1998 Unknown [id number] 2.16.8 40.1.331147.3.579.2.727 1998 Unknown [id number] 2.16.8 40.1.272643.3.579.2.727 1998 Unknown [id number] 2.16.8 40.1.992428.3.579.2.727 1998 Unknown [id number] 2.16.8 40.1.760881.3.579.2.727 1998 Unknown [id number] 2.16.8 40.1.544853.3.579.2.727 1998 Unknown [id number] 2.16.8 40.1.968741.3.579.2.727 1959 Self-pay [id number] 1959 Unknown [id number] Unknown [id number] 2.16.8 40.1.428903.3.579.2.531 Social History Date Type Detail Facility Tobacco smoking status DCIS Unknown if ever smoked [place], [place] Start: 1998 Sex Assigned At Not on file [place] Start: 09-14-2020 End: 02-29-2024 Tobacco smoking status Ex-smoker (finding) [facility] Sex Assigned At Female [facility] Tobacco [facility] Comment on above: denies Tobacco smoking status NHIS Tobacco smoking consumption unknown [facility] Work Phone: Tobacco smoking status No Smoking Status Entered [facility] Start: 02-16-2022 Tobacco smoking status NHIS Never smoked tobacco [facility] Work Phone: Start: 02-16-2022 Tobacco use and exposure Smokeless tobacco non-user [facility] Start: 02-16-2022 End: 03-03-2022 Alcohol intake Lifetime non-drinker (finding) [facility] Tobacco smoking status Never [facility] Start: 04-12-2017 Tobacco smoking status NHIS Smoker (finding) [facility] Start: 04-30-2024 Sex Female (finding) [facility] Start: 1998 Sex Assigned At Female [facility] Medical Equipment Procedure Code Equipment Code Equipment Origin al Text Equipment Identifier Dates Open reduction, fracture, mandible 2.0 SELF TAP MANDIBUL 10MM FDA Start: 03-15-2017 Open reduction, fracture, mandible 2.0 SELF TAP MANDIBUL 6MM FDA Start: 03-15-2017 Open reduction, fracture, mandible 2.0 SELF TAP MANDIBUL 6MM FDA Start: 03-15-2017 Open reduction, fracture, mandible 2.0 SELF TAP MANDIBULAR 4MM FDA Start: 03-15-2017 Open reduction, fracture, mandible 2.3 SELF TAP MANDIBUL 12MM FDA Start: 03-15-2017 Open reduction, fracture, mandible 2.3 SELF TAP MANDIBUL 4MM FDA Start: 03-15-2017 Open reduction, fracture, mandible 2.3 SELF TAP MANDIBUL 8MM FDA Start: 03-15-2017 Open reduction, fracture, mandible MANDIBULAR PAVITHRA PLATE FDA Start: 03-15-2017 Open reduction, fracture, mandible MANDIBULAR PAVITHRA PLATE FDA Start: 03-15-2017 Open reduction, fracture, mandible MMF SELF DRILLING SCREWS 12MM FDA Start: 03-15-2017 Open reduction, fracture, mandible MMF SELF DRILLING SCREWS 12MM FDA Start: 03-15-2017 Open reduction, fracture, mandible 2.0 SELF TAP MANDIBUL 10MM FDA Start: 03-15-2017 Open reduction, fracture, mandible MMF SELF DRILLING SCREWS 12MM FDA Start: 03-15-2017 Open reduction, fracture, mandible MMF SELF DRILLING SCREWS 12MM FDA Start: 03-15-2017 Open reduction, fracture, mandible PLATE 4 HOLE FRACTURE W/ BAR FDA Start: 03-15-2017 Open reduction, fracture, mandible PLATE 4-HOLE PREBENT LEFT FDA Start: 03-15-2017 Open reduction, fracture, mandible PLATE 4-HOLE PREBENT RIGHT FDA Start: 03-15-2017 Open reduction, fracture, mandible PLATE 6 HOLES WITH BAR FDA Start: 03-15-2017 Open reduction, fracture, mandible 2.0 SELF TAP MANDIBUL 10MM FDA Start: 03-15-2017 Open reduction, fracture, mandible 2.0 SELF TAP MANDIBUL 12MM FDA Start: 03-15-2017 Open reduction, fracture, mandible 2.0 SELF TAP MANDIBUL 12MM FDA Start: 03-15-2017 Open reduction, fracture, mandible 2.0 SELF TAP MANDIBUL 5MM FDA Start: 03-15-2017 Open reduction, fracture, mandible 2.0 SELF TAP MANDIBUL 6MM FDA Start: 03-15-2017 Open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
[2024-05-01 09:56] LABS: Basophils Percent Auto 0.3 % (0.2-2.0); Eosinophils Absolute Auto 0.2 10^3/uL (0.0-0.7); Eosinophils Percent Auto 2.7 % (0.9-7.0); Hematocrit 33.2 % (36.0-48.0); Hemoglobin 10.2 g/dL (12.0-16.0); Immature Granulocytes Abs Auto 0.08 10^3/uL (0.00-0.03); Immature Granulocytes Pct Auto 1.3 % (0.0-0.5); Lymphocytes Absolute Auto 1.3 10^3/uL (1.2-3.8); Lymphocytes Percent Auto 21.1 % (20.5-60.0); Mean Corpuscular HGB Conc 30.7 g/dL (29.9-35.2); Mean Corpuscular Hemoglobin 24.4 pg (26.7-34.0); Mean Corpuscular Volume 79.4 fL (81.0-99.0); Mean Platelet Volume 10.3 fL (9.5-13.5); Monocytes Absolute Auto 0.6 10^3/uL (0.3-0.8); Monocytes Percent Auto 8.9 % (1.7-12.0); Neutrophils Absolute Auto 4.1 10^3/uL (1.4-6.5); Neutrophils Percent Auto 65.7 % (43.0-75.0); Platelet Count 271 10^3/uL (150-450); Red Blood Count 4.18 10^6/uL (4.20-5.40); Red Cell Distribution Width 14.7 % (11.0-15.0); White Blood Count 6.2 10^3/uL (4.0-11.0)
[2024-05-01 09:57] LABS: Bilirubin Urine NEGATIVE (NEGATIVE); Blood Urine NEGATIVE (NEGATIVE); Clarity Urine CLEAR (CLEAR); Color Urine LT. YELLOW (YELLOW); Glucose Urine UA NEGATIVE (NEGATIVE); Ketones Urine NEGATIVE (NEGATIVE); Leukocyte Esterase Urine NEGATIVE (NEGATIVE); Nitrite Urine NEGATIVE (NEGATIVE); Protein Urine NEGATIVE (NEG/TRACE); Specific Gravity Urine 1.015 (1.005-1.025); Urobilinogen Urine 0.2 EU/dL (0.2-1.0)
[2024-05-01 09:58] LABS: HCG Qualitative Urine* POSITIVE (NEGATIVE); Internal Control Within Normal Limits
[2024-05-01 10:08] LABS: Bacteria Urine TRACE #/HPF (NONE SEEN); Cast Seen? NONE SEEN #/LPF (NONE SEEN); Crystals Seen? None Seen #/HPF (None Seen); Mucus Urine NONE SEEN (NONE SEEN); RBC Urine 0-2 #/HPF (0-2); Squamous Epithelial Cell Urine FEW #/LPF (NONE/RARE); Urine Culture Indicated NO; WBC Urine 0-2 #/HPF (NONE SEEN)
--- NOTE | 2024-05-01 10:14 | ED.FEMALEGU1 ---
HPI - Female Genitourinary General Chief complaint: Vaginal Bleeding Stated complaint: VAGINAL DISCHARGE Time Seen by Provider: 05/01/24 09:10 Mode of arrival: walk-in History of Present Illness HPI Narrative: 23-year-old female presents for vaginal irritation. She had a positive test at home and had a titer of 140 two days ago on April 29. This was performed at another facility. She has had no vaginal bleeding and does not have a vaginal discharge. She was told to get a repeat titer today and she came here. She is not complaining of abdominal pain. She requested that if we need swabs that she do it herself because she states she always has a great deal of pain with the speculum. Related Data Home Medications ?Medication ?Instructions ?Recorded ?Confirmed methylprednisolone 4 mg tablets in 4 mg PO DAILY 05/05/23 05/05/23 a dose pack Previous Rx's ?Medication ?Instructions ?Recorded pphtxdeusffbylj-myneofhmjyycigz-JR 5 ml PO Q6H PRN cold symptoms #118 01/10/23 2 mg-30 mg-10 mg/5 mL oral syrup mL (Bromfed DM) ketorolac 10 mg tablet 10 mg PO TID PRN pain #10 tabs 05/05/23 methocarbamol 750 mg tablet 750 mg PO TID PRN pain #20 tabs 05/05/23 ondansetron 4 mg disintegrating 4 mg PO Q6H PRN nausea and 05/05/23 tablet vomiting #12 tabs methocarbamol 750 mg tablet 750 mg PO TID PRN pain #20 tabs 10/08/23 cephalexin 500 mg capsule 500 mg PO TID 7 days #21 caps 03/15/24 metronidazole 250 mg tablet 250 mg PO TID #21 tabs 03/15/24 Allergies Allergy/AdvReac Type Severity Reaction Status Date / Time aripiprazole (From Abilify) AdvReac Severe Hallucinati Verified 03/15/24 18:59 ng meloxicam AdvReac Mild lethargic Verified 03/15/24 18:59 Review of Systems ROS Narrative A ten point review of systems is negative except as noted above. PFSH PFS Social History Smoking status: Heavy tobacco smoker Little interest or pleasure in doing things: not at all Feeling down, depressed, or hopeless: not at all Exam Narrative Exam Narrative: Nurses note and vital signs reviewed and patient is not hypoxic. General: The patient appears well and in no apparent distress. Patient is resting comfortably on cart. Skin: Warm, dry, no pallor noted. There is no rash noted. Head: Normocephalic, atraumatic Eye: Normal conjunctiva, no drainage Ears, Nose, Mouth, and Throat: oral mucosa is moist. Nares patent. Cardiovascular: Regular Rate and Rhythm Respiratory: Patient is in no distress, no accessory muscle use, lungs are clear to auscultation, no wheezing, rales or rhonchi Back: non-tender GI: Soft and nontender : No external genital skin lesions. Musculoskeletal: No joint swelling Neurological: A&O, normal speech Psychiatric: Cooperative Constitutional Vital Signs, click to edit/add: Last Vital Signs Temp 97.8 F 05/01/24 09:18 Pulse 107 H 05/01/24 09:18 Resp 18 05/01/24 09:18 BP 137/83 05/01/24 09:18 Pulse Ox 100 05/01/24 09:18 Course Vital Signs Vital signs: Vital Signs Temperature 97.8 F 05/01/24 09:18 Pulse Rate 107 H 05/01/24 09:18 Respiratory Rate 18 05/01/24 09:18 Blood Pressure 137/83 05/01/24 09:18 Pulse Oximetry 100 05/01/24 09:18 Temperature 97.8 F 05/01/24 09:18 Pulse Rate 107 H 05/01/24 09:18 Respiratory Rate 18 05/01/24 09:18 Blood Pressure 137/83 05/01/24 09:18 Pulse Oximetry 100 05/01/24 09:18 MDM - Female Genitourinary MDM Narrative Medical decision making narrative: Yeast was noted on the wet prep. GC and Chlamydia test are pending. She was treated with Diflucan here. Her hCG titer has gone from 140 days two ago to 296 today. 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 At this point I have no clinical suspicion of an ectopic . Treatment diagnosis and follow-up were discussed thoroughly. Differential Diagnosis Differential diagnosis: Likely urinary tract infection, bacterial vaginosis, trichomoniasis and vaginitis Lab Data Attestation: I reviewed the patient's lab results. Labs: Lab Results 05/01/24 05/01/24 Range/Units 09:25 09:46 WBC 6.2 (4.0-11.0) 10^3/uL RBC 4.18 L (4.20-5.40) 10^6/uL Hgb 10.2 L (12.0-16.0) g/dL Hct 33.2 L (36.0-48.0) % MCV 79.4 L (81.0-99.0) fL MCH 24.4 L (26.7-34.0) pg MCHC 30.7 (29.9-35.2) g/dL RDW 14.7 (11.0-15.0) % Plt Count 271 (150-450) 10^3/uL MPV 10.3 (9.5-13.5) fL Neut % (Auto) 65.7 (43.0-75.0) % Lymph % (Auto) 21.1 (20.5-60.0) % [place]ois % (Auto) 8.9 (1.7-12.0) % Eos % (Auto) 2.7 (0.9-7.0) % Baso % (Auto) 0.3 (0.2-2.0) % Neut # (Auto) 4.1 (1.4-6.5) 10^3/uL Lymph # (Auto) 1.3 (1.2-3.8) 10^3/uL [place]ois # (Auto) 0.6 (0.3-0.8) 10^3/uL Eos # (Auto) 0.2 (0.0-0.7) 10^3/uL Baso # (Auto) 0.0 (0.0-0.1) 10^3/uL Abs Immat Gran (auto) 0.08 H (0.00-0.03) 10^3/uL Imm/Tot Granulo (auto) 1.3 H (0.0-0.5) % Sodium 138 (136-145) mmol/L Potassium 3.7 (3.5-5.1) mmol/L Chloride 105 (98-107) mmol/L Carbon Dioxide 24.2 (21.0-32.0) mmol/L Anion Gap 12.5 BUN 12.0 (7.0-18.0) mg/dL Creatinine 0.72 (0.55-1.02) mg/dL Est GFR ( Amer) >60 (>=60 mL/min/1.73m^2) Est GFR (Non-Af Amer) >60 (>=60 mL/min/1.73m^2) BUN/Creatinine Ratio 16.7 Glucose 88 (74-106) mg/dL Calcium 8.7 (8.5-10.1) mg/dL HCG, Quant 296 mIU/mL Urine Color Lt. yellow (YELLOW) Urine Clarity Clear (CLEAR) Urine pH 7.0 (5.0-9.0) Ur Specific [place] 1.015 (1.005-1.025) Urine Protein Negative (NEG/TRACE) mg/dL Urine Glucose (UA) Negative (NEGATIVE) mg/dL Urine Ketones Negative (NEGATIVE) mg/dL Urine Occult Blood Negative (NEGATIVE) Urine Nitrite Negative (NEGATIVE) Urine Bilirubin Negative (NEGATIVE) Urine Urobilinogen 0.2 (0.2-1.0) EU/dL Ur Leukocyte Esterase Negative (NEGATIVE) Urine RBC 0-2 (0-2) #/HPF Urine WBC 0-2 A (NONE SEEN) #/HPF Ur Squamous Epith Cells Few A (NONE/RARE) #/LPF Urine Crystals None seen (None Seen) #/HPF Urine Bacteria Trace A (NONE SEEN) #/HPF Urine Casts None seen (NONE SEEN) #/LPF Urine Mucus None seen (NONE SEEN) Urine Yeast Seen A (NONE SEEN) Ur Culture Indicated? No Urine HCG, Qual Positive A (NEGATIVE) Discharge Plan Discharge Chief Complaint: Vaginal Bleeding Clinical Impression: , Yeast vaginitis Patient Disposition: Home, Self-Care Time of Disposition Decision: 10:36 Condition: Good Mode of Transportation: Private Vehicle Prescriptions / Home Meds: No Action uifvmkfvwigndyi-lnjinjhxc-BJ [Bromfed DM] 2-30-10 mg/5 mL syrup 5 ml PO Q6H PRN (Reason: cold symptoms) Qty: 118 0RF methylprednisolone 4 mg tablets,dose pack 4 mg PO DAILY Patient Comments: take as directed ketorolac 10 mg tablet 10 mg PO TID PRN (Reason: pain) Qty: 10 0RF methocarbamol 750 mg tablet 750 mg PO TID PRN (Reason: pain) Qty: 20 0RF ondansetron 4 mg tablet,disintegrating 4 mg PO Q6H PRN (Reason: nausea and vomiting) Qty: 12 0RF methocarbamol 750 mg tablet 750 mg PO TID PRN (Reason: pain) Qty: 20 0RF cephalexin 500 mg capsule 500 mg PO TID 7 Days Qty: 21 0RF metronidazole 250 mg tablet 250 mg PO TID Qty: 21 0RF Print Language: Guyanese Instructions: (ED), Yeast Infection (ED) Referrals: Jewell Monzon RN [Primary Care Provider] - 1 week
[2024-05-01 10:31] LABS: Anion Gap 12.5; BUN Creatinine Ratio 16.7; Calcium 8.7 mg/dL (8.5-10.1); Carbon Dioxide 24.2 mmol/L (21.0-32.0); Chloride 105 mmol/L (98-107); Estimated GFR (African America >60 (>=60 mL/min/1.73m^2); Estimated GFR (Non-African Ame >60 (>=60 mL/min/1.73m^2); Glucose 88 mg/dL (74-106); Potassium 3.7 mmol/L (3.5-5.1); Sodium 138 mmol/L (136-145)
[2024-05-01 10:32] LABS: HCG Quantitative 296 mIU/mL
[2024-05-01] MEDS: FLUCONAZOLE 150 MG TABLET PO (10:45)
[2024-05-02 21:07] LABS: Neisseria gonorrhoeae, NAA Negative (Negative)
== END 2024-05-01 10:48 | disposition home or self-care (01) ==
PROVIDERS: Emergency Provider Emergency Medicine
DX: O98.811 Other maternal infectious and parasitic diseases complicating pregnancy, first trimester (principal); B37.31 Acute candidiasis of vulva and vagina; O99.331 Smoking (tobacco) complicating pregnancy, first trimester; F17.200 Nicotine dependence, unspecified, uncomplicated; Z3A.00 Weeks of gestation of pregnancy not specified
CPT/HCPCS: 36415; 80048; 81001; 84702; 84703; 85025; 87210; 87491; 87591; 87660; 99283

== ENCOUNTER 2024-05-20 14:11 | Outpatient (RCR) | payer OTHER, SELFPAY | END 2024-06-16 13:04 | disposition home or self-care (01) | LOC: LAB 14:11 | PROVIDERS: Visit Provider Physician Assistant | DX: Z32.01 Encounter for pregnancy test, result positive (principal) | CPT/HCPCS: 36415; 84702 ==

== ENCOUNTER 2024-05-22 12:37 | Outpatient (OUT) | payer OTHER, SELFPAY ==
[2024-05-22 13:57] LABS: HCG Quantitative 62697 mIU/mL
== END 2024-05-22 12:38 | disposition home or self-care (01) ==
LOC: LAB 12:41
PROVIDERS: Visit Provider Obstetrics & Gynecology
DX: Z32.01 Encounter for pregnancy test, result positive (principal)
CPT/HCPCS: 36415; 84702

== ENCOUNTER 2024-06-12 14:04 | Outpatient (OUT) | payer OTHER, SELFPAY ==
[2024-06-12 14:33] LABS: Basophils Percent Auto 0.3 % (0.2-2.0); Eosinophils Absolute Auto 0.1 10^3/uL (0.0-0.7); Eosinophils Percent Auto 1.5 % (0.9-7.0); Hematocrit 33.4 % (36.0-48.0); Hemoglobin 10.5 g/dL (12.0-16.0); Immature Granulocytes Abs Auto 0.01 10^3/uL (0.00-0.03); Immature Granulocytes Pct Auto 0.1 % (0.0-0.5); Lymphocytes Absolute Auto 2.1 10^3/uL (1.2-3.8); Lymphocytes Percent Auto 28.1 % (20.5-60.0); Mean Corpuscular HGB Conc 31.4 g/dL (29.9-35.2); Mean Corpuscular Hemoglobin 24.6 pg (26.7-34.0); Mean Corpuscular Volume 78.2 fL (81.0-99.0); Mean Platelet Volume 11.1 fL (9.5-13.5); Monocytes Absolute Auto 0.5 10^3/uL (0.3-0.8); Monocytes Percent Auto 6.2 % (1.7-12.0); Neutrophils Absolute Auto 4.7 10^3/uL (1.4-6.5); Neutrophils Percent Auto 63.8 % (43.0-75.0); Platelet Count 280 10^3/uL (150-450); Red Blood Count 4.27 10^6/uL (4.20-5.40); Red Cell Distribution Width 14.9 % (11.0-15.0); White Blood Count 7.4 10^3/uL (4.0-11.0)
[2024-06-12 14:39] LABS: BOX Test Sent Out UNITY
[2024-06-12 14:40] LABS: BOX Test Reference Lab UNITY
[2024-06-12 14:48] LABS: Amphetamine Screen Urine NEGATIVE (NEGATIVE); Barbiturates Screen Urine NEGATIVE (NEGATIVE); Benzodiazepines Screen Urine NEGATIVE (NEGATIVE); Buprenorphine Screen Urine NEGATIVE (NEGATIVE); Cannabinoid Screen Urine NEGATIVE (NEGATIVE); Cocaine Screen Urine NEGATIVE (NEGATIVE); Methadone Screen Urine NEGATIVE (NEGATIVE); Methamphetamines Screen Urine NEGATIVE (NEGATIVE); Opiate Screen Urine NEGATIVE (NEGATIVE); Oxycodone Screen Urine NEGATIVE (NEGATIVE); Phencyclidine Screen Urine NEGATIVE (NEGATIVE); Tricyclic Antidepressant Urine NEGATIVE (NEGATIVE)
[2024-06-12 14:48] LABS: Estimated Average Glucose 97 mg/dL
[2024-06-13 04:15] LABS: Rubella Antibodies, IgG 1.46 index (Immune >0.99)
[2024-06-13 05:10] LABS: HCV Ab Non Reactive (Non Reactive); HIV Ab/p24 Ag Screen Non Reactive (Non Reactive)
[2024-06-13 06:11] LABS: HBsAg Screen Negative (Negative)
[2024-06-13 11:08] LABS: Rapid Plasma Reagin, Quant Non Reactive titer (NonRea<1:1)
== END 2024-06-12 14:05 | disposition home or self-care (01) ==
PROVIDERS: Visit Provider Obstetrics & Gynecology
DX: Z34.01 Encounter for supervision of normal first pregnancy, first trimester (principal); Z36.0 Encounter for antenatal screening for chromosomal anomalies; N92.6 Irregular menstruation, unspecified
CPT/HCPCS: 36415; 80307; 83036; 85025; 86592; 86762; 86803; 86850; 86870; 86900; 86901; 87086; 87150; 87186; 87340; 87389

== ENCOUNTER 2024-07-23 12:18 | Outpatient (OUT) | payer OTHER, SELFPAY | END 2024-07-23 12:19 | disposition home or self-care (01) | LOC: LAB 12:20 | PROVIDERS: Visit Provider Obstetrics & Gynecology | DX: O26.899 Other specified pregnancy related conditions, unspecified trimester (principal); Z67.91 Unspecified blood type, Rh negative | CPT/HCPCS: 36415; 86870 ==

== ENCOUNTER 2024-10-02 12:05 | Outpatient (OUT) | payer OTHER, SELFPAY ==
[2024-10-02 13:29] LABS: Hematocrit 29.8 % (36.0-48.0); Hemoglobin 9.4 g/dL (12.0-16.0); Immature Granulocytes Abs Auto 0.06 10^3/uL (0.00-0.03); Immature Granulocytes Pct Auto 0.5 % (0.0-0.5); Lymphocytes Absolute Auto 1.5 10^3/uL (1.2-3.8); Mean Corpuscular HGB Conc 31.5 g/dL (29.9-35.2); Mean Corpuscular Hemoglobin 24.6 pg (26.7-34.0); Mean Corpuscular Volume 78.0 fL (81.0-99.0); Platelet Count 278 10^3/uL (150-450); Red Blood Count 3.82 10^6/uL (4.20-5.40); White Blood Count 12.2 10^3/uL (4.0-11.0)
[2024-10-02 14:09] LABS: Glucose 1 Hour 115 mg/dL (<130)
== END 2024-10-02 12:06 | disposition home or self-care (01) ==
LOC: LAB 12:07
PROVIDERS: Visit Provider Obstetrics & Gynecology
DX: O36.0190 Maternal care for anti-D [Rh] antibodies, unspecified trimester, not applicable or unspecified (principal); Z13.1 Encounter for screening for diabetes mellitus
CPT/HCPCS: 36415; 82950; 85025; 86850; 86900; 86901

== ENCOUNTER 2024-11-04 09:59 | Outpatient (OUT) | payer OTHER, SELFPAY ==
--- OUTSIDE RECORDS SUMMARY | 2024-10-20 20:37 | XMS_ITS | Continuity of Care Document ---
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 Name Role Phone NON STAFF Primary Care Provider Saul Pinto DO Emergency Provider Hever Wallace DO Attending Provider Cristiano Williamson MD Attending Provider Care Teams Patient Care Team Team Status: Active Member Role Status Dates NON STAFF Primary Care Provider Active Visit Care Team Team Status: Inactive Member Role Status Dates NON STAFF Primary Care Provider Active Start: August 12, 2024 End: August 12, 2024 Saul Mark DO Emergency Provider Active St art: August 12, 2024 End: August 12, 2024 Visit Care Team Team Status: Inactive Member Role Status Dates NON STAFF Primary Care Provider Active Start: August 12, 2024 End: August 12, 2024 Hever Wallace DO Attending Provider Active Sta rt: August 12, 2024 End: August 12, 2024 Patient Care Team Team Status: Inactive Member Role Status Dates NON STAFF Primary Care Provider Active Start: October 20, 2024 End: October 20, 2024 Cristiano Williamson MD Attending Provider Active Start: October 20, 2024 End: October 20, 2024 Chief Complaint and Reason for Visit Chief Complaint Admit Date headache, back pain August 12, 2024 6:25p m 20 wks back pain August 12, 2024 6:51p m O36.1120 October 20, 2024 4:0 2pm Reason for Referral Referring Provider Name Referring Provider Address Referring Provider Phone Referral Date Requested Appointment Date Referral Reason Hever Wallace [address] [facility] [address] Work Phone: Follow up with Dr. Arthur on September 02 at 10:30 a.m. Follow up with Dr. Arthur on September 02 at 10:30 a.m. Allergies, Adverse Reactions, Alerts Allergen Type Severity Reaction Last Updated Verified Status acetaminophen Allergy Unknown Hives March 152016 2:56pm Yes Active aripiprazole Allergy Unknown Hallucinating March 15, 2017 2:56pm Yes Active hydrocodone Allergy Unknown Hives February 2:56pm Yes Active Social History Smoking Status Status Start Date End Date Date of Observa tion Smokes tobacco daily (finding) April 12, 2017 9:04am Observation Status Observation Response Date of Response Legal Sex Female (finding) Sex Assigned At Female May Family History Relationship Condition Age at Onset Recorded Date/T emma mother Myocardial infarction Unknown grandparent Malignant neoplasm of breast Unknown grandparent Diabetes mellitus Unknown Problems Inactive/Resolved Problems Medical Problem Onset Date Status Comments Fracture of mandible Unknown Resolved Problem List clean-up per request of Phys. EHR Cmte Medications Medication Status Dose Units Route Directions Qty Days St art Date Stop Date End Date Instructions Adherence Chlorhexidi ne Gluconate (Peridex) 0.12 % mouthwash Discont inued 15 ML MUCOUS MEM Twice daily 2017 1:00am 2020 7:15p m rinse mouth for at least 30 secs Multivit-Mi n-Fe-Fa () 1 mg Tablet Active 1 TAB PO Daily 2020 1:00am Unknown Cephalexin 500 mg capsule Active 500 MG PO Twice daily August 12, 2024 12:00a m Unknown Medical Equipment Device Date Implanted Device Details 2.0 SELF TAP MANDIBUL 10MM March 15, 2017 2.0 SELF TAP MANDIBUL 10MM March 15, 2017 2.0 SELF TAP MANDIBUL 10MM March 15, 2017 2.0 SELF TAP MANDIBUL 12MM March 15, 2017 2.0 SELF TAP MANDIBUL 12MM March 15, 2017 2.0 SELF TAP MANDIBUL 5MM March 15, 2017 2.0 SELF TAP MANDIBUL 6MM March 15, 2017 2.0 SELF TAP MANDIBUL 6MM March 15, 2017 2.0 SELF TAP MANDIBUL 6MM March 15, 2017 2.0 SELF TAP MANDIBUL 6MM March 15, 2017 2.0 SELF TAP MANDIBUL 6MM March 15, 2017 2.0 SELF TAP MANDIBULAR 4MM March 15, 2017 2.3 SELF TAP MANDIBUL 12MM March 15, 2017 2.3 SELF TAP MANDIBUL 4MM March 15, 2017 2.3 SELF TAP MANDIBUL 8MM March 15, 2017 MANDIBULAR PAVITHRA PLATE March 15, 2017 MANDIBULAR PAVITHRA PLATE March 15, 2017 MMF SELF DRILLING SCREWS 12MM March 15 7 MMF SELF DRILLING SCREWS 12MM March 15 7 MMF SELF DRILLING SCREWS 12MM March 15 7 MMF SELF DRILLING SCREWS 12MM March 15 7 PLATE 4 HOLE FRACTURE W/ BAR March 15, 2017 PLATE 4-HOLE PREBENT LEFT March 15, 2017 PLATE 4-HOLE PREBENT RIGHT March 15, 2017 PLATE 6 HOLES WITH BAR March 15, 2017 Procedures Procedure Date Performed Status Urine Culture August 12, 2024 completed Relevant Diagnostic Tests and/or Laboratory Data Laboratory Results Test Collection Date/Time Result Date/Time Result Interpretation Reference Range Result Comment Performing Site Urine Color August 12, 2024 7:11pm August 12, 2024 7:25pm Light-yell ow Yellow [facility] [id number] [address] [facility] [address] Urine Appearan ce August 12, 2024 7:11pm August 12, 2024 7:25pm Cloudy Abnormal (applies to non-numeric results) Clear [facility] [id number] [address] [facility] [address] Urine Specific [place] August 12, 2024 7:11pm August 12, 2024 7:25pm 1.019 1.001-1.03 0 [facility] [id number] [address] [facility] [address] Urine pH August 12, 2024 7:11pm August 12, 2024 7:25pm 5.5 5.0-9.0 [facility] [id number] [address] [facility] [address] Urine Leukocyt e Esterase August 12, 2024 7:11pm August 12, 2024 7:25pm 3+ Above high normal Negative [facility] [id number] [address] [facility] [address] Urine Nitrite August 12, 2024 7:11pm August 12, 2024 7:25pm Negative Negative [facility] [id number] [address] [facility] [address] Urine Protein August 12, 2024 7:11pm August 12, 2024 7:25pm Trace mg/dL Above high normal Negative [facility] [id number] [address] [facility] [address] Urine Glucose (UA) August 12, 2024 7:11pm August 12, 2024 7:25pm Normal mg/dL Normal [facility] [id number] [address] [facility] [address] Urine Ketones August 12, 2024 7:11pm August 12, 2024 7:25pm Negative Negative [facility] [id number] [address] [facility] [address] Urine Urobilin ogen August 12, 2024 7:11pm August 12, 2024 7:25pm Normal mg/dL Normal [facility] [id number] [address] [facility] [address] Urine Bilirubi n August 12, 2024 7:11pm August 12, 2024 7:25pm Negative Negative [facility] [id number] [address] [facility] [address] Urine Occult Blood August 12, 2024 7:11pm August 12, 2024 7:25pm Negative Negative [facility] [id number] [address] [facility] [address] Urine RBC August 12, 2024 7:11pm August 12, 2024 7:30pm 1-2 [HPF] 0-4 [facility] [id number] [address] [facility] [address] Urine WBC August 12, 2024 7:11pm August 12, 2024 7:30pm 20-49 [HPF] Above high normal 0-4 [facility] [id number] [address] [facility] [address] Urine WBC Clumps August 12, 2024 7:11pm August 12, 2024 7:30pm Occasional [LPF] Above high normal None Seen [facility] [id number] [address] [facility] [address] Urine Squamous Epitheli al Cells August 12, 2024 7:11pm August 12, 2024 7:30pm 5-9 [HPF] Above high normal 0-2 [facility] [id number] [address] [facility] [address] Urine Bacteria August 12, 2024 7:11pm August 12, 2024 7:30pm 3+ [HPF] Above high normal None Seen [facility] [id number] [address] [facility] [address] Urine Hyaline Casts August 12, 2024 7:11pm August 12, 2024 7:30pm None [LPF] 0-8 [facility] [id number] [address] [facility] [address] Urine Mucus August 12, 2024 7:11pm August 12, 2024 7:30pm Rare [LPF] [facility] [id number] [address] [facility] [address] Urine Amphetam amandeep Screen August 12, 2024 7:11pm August 12, 2024 7:47pm Negative Negative [facility] [id number] [address] [facility] [address] Urine Barbitur ates Screen August 12, 2024 7:11pm August 12, 2024 7:47pm Negative Negative [facility] [id number] [address] [facility] [address] Urine Benzodia zepines Screen August 12, 2024 7:11pm August 12, 2024 7:47pm Negative Negative [facility] [id number] [address] [facility] [address] Urine Cocaine Screen August 12, 2024 7:11pm August 12, 2024 7:47pm Negative Negative [facility] [id number] [address] [facility] [address] Urine Opiates Screen August 12, 2024 7:11pm August 12, 2024 7:47pm Negative Negative [facility] [id number] [address] [facility] [address] Urine Phencycl idine Screen August 12, 2024 7:11pm August 12, 2024 7:47pm Negative Negative These are unconfirme d results and should not be used for legal purposes. Drug Cut-Off Concentrat ion: AMPH 1000 ng/mL ANNE 200 ng/mL SHEY 200 ng/mL COCM 300 ng/mL OP 300 ng/mL PCP 25 ng/mL [facility] [id number] [address] [facility] [address] Microbiology Results Procedure Source Result Collection Date/Time Result Date/Time Result Comment Performing Site Urine Culture Urine, Clean-Voided Midstream Escherichia coli August 12, 2024 7:11pm August 15, 2024 10:29am [facility] [id number] [address] [facility] [address] Vital Signs Vital Reading Result Reference Range Collection Date/Time Height 65 [in_i] August 12, 2024 7:09pm Weight 87.54 kg August 12, 2024 7:09pm Body Temperature 97.5 [degF] 97.6-99.0 August 12, 2 025 7:17pm Heart Rate 81 /min 60-100 August 12, 2024 7:17pm Respiratory rate 18 /min 12-24 August 12, 2 025 7:17pm Oxygen saturation by Pulse oximetry 95 % 95-10 0 August 12, 2024 7:17pm BP Systolic 118 mm[Hg] 100-140 August 12, 2024 7:17pm BP Diastolic 64 mm[Hg] 60-100 August 12, 2024 7:17pm Advance Directives Advance Directive Response Recorded Date/ Time Advance Directives No February 2:29pm Insurance Providers Guarantor Maximus Mota Address [address] [place] [address] [place] [address] Contact Info. Home Phone: Payer Policy Id Subscriber's Name Subscriber Id Effective Date Expiration Date [employer] [id number] Maximus Mota [id number] [facility] [id number] Maximus Mota [id number] [facility] [id number] Maximus Mota [id number] Encounters Encounter Location(s) Arrival/Admit Date Discharge/Depart Date Provider(s) Departed Emergency -Emergency Room August 12, 2024 6:25pm August 12, 2024 6:56pm Departed Clinical -[facility] - O/P August 12, 2024 6:51pm August 12, 2024 7:51pm Hever Wallace DO Departed Clinical -[facility] October 20, 2024 4:02pm October 20, 2024 4:03pm Lou Griffin MD Plan of Treatment Future Tests Future scheduled test information is unavailable Pending Tests Pending diagnostic test information is unavailable Future Visits Future appointment information is unavailable Referrals to Other Providers Reason for Referral Referral Start Date Provider Provider Contact Information Provider Address Follow up with Dr. Arthur on September 02 at 10:30 a.m. Andrey Arthur Work Phone: [address] [place] [address] [place] [address] Future Procedures Procedure Name Ordered Date Scheduled Date Admit Status Order August 12, 2024 7:09pm July 7:09pm Discharge Order August 18, 2024 10:26am August 12, 2024 7:35pm Antibody Titer October 20, 2024 4:15pm October 202024 4:12pm ABO/RH Type October 20, 2024 4:15pm October 202024 4:12pm Future Medications Future medication information is unavailable Patient Instructions Instruction Admit Date [place]te[place] August 12, 2024 6:51pm Goals Preferences Type Detail Treatment Intervention Code Status: Full Code
--- OUTSIDE RECORDS SUMMARY | 2024-10-30 13:00 | XMS_ITS | Encounter Summary ---
Author Organization [facility] Address [address] [facility] [place] [address] Care Team Providers Care Status Controller Name Role Phone Jewell Monzon MD Primary Care Provider [phone] Reason for Visit * Reason Comments Routine Visit Encounter Details Date Type Department Care Team (Late st Contact Info) Description 10/30/2024 1:00 PM EDT Routine [facility] [address] [place] [address] Michelle Segura NP [address] [facility] [place] [address] Third trimester ([facility]); 30 weeks gestation of ([facility]); 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[facility]); Rh negative state in antepartum period, unspecified trimester ([facility]); Other iron deficiency anemia Social History [...] nursing note reviewed. Exam conducted with a nursing tech present. Vitals: Estimated body mass index is 34.59 kg/m?? as calculated from the following: Height as of 24: 5' 4 . Weight as of this encounter: 201 lb 8 oz. BP: 122/82 No LMP recorded. Patient is . ASSESSMENT & PLAN ICD-10-CM 1. Third trimester ([facility]) Z34.93 magnesium oxide (Mag-Ox) 400 MG tablet 2. 30 weeks gestation of ([facility]) Z3A.30 3. 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 Rh negative state in antepartum period, unspecified trimester ([facility]) O26.899 iron polysaccharides (ProFe) 391.3 (180 Fe) [...] AM EDT Routine [facility] [address] [place] [address] Andrey Arthur DO [address] [facility] [address] [place], [id number] 11/25/2024 11:30 AM EDT Routine [facility] [address] [place] [address] Susan Patterson PA [address] [place] [address] Scheduled Orders Name Type Priority Associated [...] anemia documented in this encounter Care Teams Status Controller Relationship Specialty Start Date End Date Jewell Monzon MD [address] [place] [address] [place] [address] PCP - General Family Medicine 08/08/23 documented as of this encounter
--- NOTE | 2024-11-04 | US_ITS ---
[place] [id number] Patient Name: FABRIZIO MOHR MRN: [id number] date: 2000 Sex: F Assigned Patient Location: [facility] Current Patient Location: Accession/Order Number: [id number] Exam Date: 11/04/2024 12:10 Report Date: 11/04/2024 12:11 At the request of: CHIQUITA MONROE Procedure: US OB BPP w non-stress Ultrasound biophysical profile HISTORY: Anti-D antibody is present Adequate breathing movement, gross body movement, tone and amniotic fluid volume for total score of 8 out of 8. The amniotic fluid index is 9.6cm within normal limits. The heart rate 153 bpm. US/US OB BPP w non-stress IMPRESSION: Adequate ultrasound biophysical profile Impression dictated by: Jamie Granados M.D. 11/04/2024 12:11 PM [facility]ation [facility] Electron[facility] authenticated by: [id number] Y Date: 11/04/2024 12:11
--- OUTSIDE RECORDS SUMMARY | 2024-11-04 10:01 | XMS_ITS | Encounter Summary ---
Author Organization [facility] tem Address [id number] [address] [place] [address] Care Team Providers Care Insole And Outsole Preparer Name Role Phone No Pcp, No Pcp Primary Care Provider Unavailabl e Encounter Details Date Type Department Care Team ([facility] Contact Info) Description 10/07/2024 Results Follow-Up Maternal- Medicine at [facility] [address] [place] [phone] Cristiano Williamson MD [address] [facility], [address] [place] [address] Antibody ID Social History Tobacco Use Types Packs/Day Years Used Date Smoking Tobacco: Former Cigarettes Smokeless Tobacco: Never Comments:uses nicotine patch es Alcohol Use Standard Drinks/Week Comments Not Currently 0 (1 standard drink = 0.6 oz pur e alcohol) Childcare Answer Date Recorded Childcare Unknown 12/18/2019 Employment Answer Date Recorded Employment Unknown 12/18/2019 Hunger Screening Answer Date Recorded Within the past 12 months we worried whether our food would run out before we got money to buy more. Never True 08/27/2024 Within the past 12 months th e food we bought just didn't last and we didn't have money to get more. Never True 08/27/2024 Purpose - Life Answer Date Recorded Purpose and direction in life Unknown Estimated Date of Delivery Comme nts Yes 01/04/2025 Based on Ultraso und Sex and Gender Information Value Date Recorded Sex Assigned at Not on file Legal Sex Female 8:44 AM EDT Gender Identity Not on file Sexual Orientation Not on file documented as of this encounter Plan of Treatment Upcoming Encounters Date Type Department Care Team (Late st Contact Info) Description 11/06/2024 3:15 PM EDT Appointment Maternal Medicine [place] [address] [place] [address] 11/10/2024 1:00 PM EDT Appointment [facility] US Imaging [address] [place] [address] 11/10/2024 2:00 PM EDT Office Visit Maternal- Medicine at [facility] [address] [place] [address] Cristiano Williamson MD [address], [address] [place] [address] documented as of this encounter Visit Diagnoses Not on filedocumented in this encounter Care Teams Insole And Outsole Preparer Relationship Specialty Start Date End Date No Pcp, [place] [address] PCP - General Family Medicine 08/17/22 documented as of this encounter
--- OUTSIDE RECORDS SUMMARY | 2024-11-04 10:01 | XMS_ITS | Encounter Summary ---
Author Organization [facility] [employer] [facility] tem Address [id number] [address] [place] [address] Care Team Providers Care Field Representative/Health Education Name Role Phone No Pcp, No Pcp Primary Care Provider Unavailabl e Encounter Details Date Type Department Care Team (Late Contact Info) Description 05/03/2020 Orders Only Maternal- Medicine at [facility] [address] [place] [phone] External, Scanning Provider Social History Tobacco Use Types Packs/Day Years Used Date Smoking Tobacco: Former Cigarettes Smokeless Tobacco: Never Comments:uses nicotine patch es Alcohol Use Standard Drinks/Week Comments Not Currently 0 (1 standard drink = 0.6 oz pur e alcohol) Childcare Answer Date Recorded Childcare Unknown 12/18/2019 Employment Answer Date Recorded Employment Unknown 12/18/2019 Purpose - Life Answer Date Recorded Purpose and direction in life Unknown Comments Yes Sex and Gender Information Value Date Recorded Sex Assigned at Not on file Legal Sex Female 8:44 AM EDT Gender Identity Not on file Sexual Orientation Not on file COVID-19 Exposure Response Date Recorded In the last month, have you been in contact with someone who was confirmed or suspected to have Coronavirus / COVID-19? No / Unsure 05/05/2020 12:56 PM EST documented as of this encounter Plan of Treatment Upcoming Encounters Date Type Department Care Team (Late st Contact Info) Description 11/06/2024 3:15 PM EDT Appointment Maternal Medicine [place] [address] [facility] [address] [place] [address] 11/10/2024 1:00 PM EDT Appointment [facility] US Imaging [address] [place] [address] 11/10/2024 2:00 PM EDT Office Visit Maternal- Medicine at [facility] [address] [place] [address] Cristiano Williamson MD [address], [address] [place] [address] documented as of this encounter Procedures Procedure Name Priority Date/Time Associated Diagnosis Comments US PREG LMTD 1 OR MORE FETUS Routine 04/28/2020 DIRECT EDDIE Routine 12/08/2019 documented in this encounter Results * Ultrasound limited 1 or more fetus (04/28/2020) Anatomical Region Laterality Modality OB-ADVERTISING COPY WRITER Ultrasound Narrative 04/28/2020 see attached report us Scanning Provider External IMG US ORDERABLES Guillaume keara Result - Final * Direct Eddie (12/08/2019) Direct eddie Negative MANUAL LY TRANSCRIBED RESULTS us Scanning Provider External BLOOD BANK TEST ORDER KELI Edited Result - Final MANUALLY TRANSCRIBED RESULTS documented in this encounter Visit Diagnoses Not on filedocumented in this encounter Additional Health Concerns Infection Onset Date Last Indicated Resolved Time COVID-19 Rule-Out 04/22/2021 04/22/2021 04/22/2021 2:46 PM EST documented as of this encounter Care Teams Field Representative/Health Education Relationship Specialty Start Date End Date No Pcp, [place] [address] PCP - General Family Medicine 08/17/22 documented as of this encounter
--- OUTSIDE RECORDS SUMMARY | 2024-11-04 10:01 | XMS_ITS | Encounter Summary ---
Author Organization [facility] Address [address] [place] [facility] [place] [address] Care Team Providers Care Coil Wrapper Name Role Phone Jewell Monzon MD Primary Care Provider [phone] Encounter Details Date Type Department Care Team (Late st Contact Info) Description 07/30/2024 Abstract [facility] [address] [place] [address] [place] [phone] Andrey Arthur, DO [address] [place], [place] [phone] Social History Tobacco Use Types Packs/Day Years [...] 11/11/2024 10:30 AM EDT Routine [facility] [address] [place], [place] [address] [phone] Andrey Arthur, DO [address] [place] [address] 11/25/2024 11:30 AM EDT [facility] [phone] Susan Patterson PA [address] [place], [place] [phone] documented as of this encounter Visit Diagnoses Not on filedocumented in this encounter Care Teams Coil Wrapper Relationship Specialty Start Date End Date Jewell Monzon MD [address] [place] [address] [place] [address] PCP - General Family Medicine 08/08/23 documented as of this encounter
--- OUTSIDE RECORDS SUMMARY | 2024-11-04 10:01 | XMS_ITS | Encounter Summary ---
Author Organization [facility] Address [address] [facility] [place] [address] Care Team Providers Care Fish Trapper Name Role Phone Jewell Monzon MD Primary Care Provider Encounter Details Date Type Department Care Team (Late st Contact Info) Description 09/22/2024 Abstract [facility] [address] [facility] [place] [address] Dee Dee Jiménez MA Social History Tobacco Use Types Packs/Day Years [...] Info) Description 11/11/2024 10:30 AM EDT Routine [facility] [address] [place] [address] [place] [address] Andrey Arthur DO [address] [facility] [address] [place], [place] [phone] 11/25/2024 11:30 AM EDT Routine [facility] [address] [place] [address] [place] [address] Susan Patterson PA [address] [facility] [address] [place], [place] [phone] documented as of this encounter Visit Diagnoses Not on filedocumented in this encounter Care Teams Fish Trapper Relationship Specialty Start Date End Date Jewell Monzon MD [address] [place] [address] [place] [id number] PCP - General Family Medicine 08/08/23 documented as of this encounter
--- OUTSIDE RECORDS SUMMARY | 2024-11-04 10:01 | XMS_ITS | Encounter Summary ---
Author Organization [facility] Address [address] [facility] [place] [address] Care Team Providers Care Picker Operator Name Role Phone Jewell Monzon MD Primary Care Provider [phone] Encounter Details Date Type Department Care Team (Late st Contact Info) Description 08/27/2024 External Result Encounter [facility] A[facility]OTT [address] [facility] [place] [address] Reshma Arthur, DO [address] [place], [place] [address] Social History Tobacco Use Types Packs/Day Years [...] 10:30 AM EDT Routine [facility] A[facility] [place] [address] Reshma Arthur, DO 102 [place] [address] 11/25/2024 11:30 AM EDT Routine [facility] OBGYBrittany [address] [facility] [place] [address] Susan Patterson PA [address] [place], [facility] [phone] (work) documented as of this encounter Procedures Procedure Name Priority Date/Time Associated Diagnosis Comments US OB 14+ WEEKS ANATOMY SCAN 08/27/2024 4:53 PM EDT documented in this encounter Results * US OB 14+ weeks anatomy scan (08/27/2024 4:53 PM EDT) Anatomical Region Laterality Modality Body Ultrasound 08/27/2024 4:53 PM EDT Narrative 08/27/2024 4:53 PM EDT THIS EXAM WAS PERFORMED AT [facility] NAME: FANI DINH : 2000 SEX: F Accession Number: [id number] ORDERING PHYSICIAN: YOSVANY CUNNINGHAM REFERRING PHYSICIAN: RESHMA ARTHUR Coding ----- --------- Procedures [id number]: Ultrasound, uterus, real time with image documentation, and maternal evaluation plus detailed anatomic examination, transabdominal approach;single or first gestation 48824: Transvaginal Ultrasound (OB) 67538: Doppler velocimetry, ; middle cerebral artery Indication ----- --------- Screening for Anatomic Survey, Screening for cervical length, Abnormal finding on screening of mother- Anti D + (Rhogam), History of prior with delivery, History of prior with IUGR, History of prior with pre-eclampsia, history of c-sections X 3, history of PROM History ----- --------- OB History 4. Para 3 [id number] Current ----- --------- Cell free DNA low risk analysis Maternal Assessment ----- --------- Physical Exam Height 165 cm, 5 ft 5 in. Weight 87 kg, 192 lb. Initial weight 81 kg, 178 lb. BMI 31.95 kg/m???. Initial BMI 29.62 kg/m???. Weight gain 6 kg, 14 lb Method ----- --------- Transabdominal and transvaginal ultrasound examination. View: Suboptimal view: limited by position. Suboptimal view: limited by maternal body habitus ----- --------- Lake . Number of fetuses: 1 Dating ----- --------- Previous Ultrasound on: 06/12/2024 Type of prior assessment: GA GA at prior assessment date 10 w + 4 d GA by previous U/S 21 w + 3 d MARIA ISABEL by previous Ultrasound: 01/04/2025 Ultrasound examination on: 08/27/2024 GA by U/S based upon: AC, BPD, Femur, HC GA by U/S 20 w + 0 d MARIA ISABEL by U/S: 01/14/2025 Assigned: based on ultrasound (GA), selected on 08/27/2024 Assigned GA 21 w + 3 d Assigned MARIA ISABEL: 01/04/2025 General Evaluation ----- --------- Cardiac activity Present. FHR 158 bpm. Presentation: breech Placenta: Placental site: posterior, low lying Umbilical cord: Cord vessels: 3 vessel cord. Insertion site: normal insertion Amniotic fluid: Amount of AF: normal amount Biometry ----- --------- Standard BPD 40.1 mm 18w 1d <1% Hadlock OFD 67.7 mm 22w 5d 88% Haley HC 176.0 mm 20w 1d 3% Hadlock Cerebellum tr 21.4 mm 20w 2d 25% Hill Nuchal fold 2.7 mm AC 158.1 mm 21w 0d 27% Hadlock Femur 33.2 mm 20w 3d 12% Hadlock Humerus 34.5 mm 21w 5d 60% Haley HC / AC 1.11 EFW 360 g 10% Hadlock EFW (lb) 0 lb EFW (oz) 13 oz EFW by: Hadlock ([id number]) Extended Tibia 30.3 mm 21w 1d 41% Haley Feed Blender 5.6 mm CM 6.3 mm 78% Nicolaides Head / Face / Neck Cephalic index 0.59 <1% Nicolaides Nasal bone: not examined Extremities / Bony Struc FL / BPD 0.83 FL / HC 0.19 FL / AC 0.21 Other Structures FHR 158 bpm Anatomy ----- --------- The following structures appear normal: Head/Neck: Cranium. Lateral ventricles. Choroid plexus. Midline falx. Cavum septi pellucidi. Cerebellum. Cisterna magna. Parenchyma. Vermis. Nuchal fold. Face: Lips. Nose. Mandible. Orbits. Heart/Thorax: Situs. Cardiac position. Cardiac axis. Cardiac size. Cardiac rhythm. Right lung. Left lung. Abdomen: Stomach. Kidneys. Bladder. Small bowel. Large bowel. Right renal artery. Left renal artery. Extremities/Skeleton: Right upper arm. Right forearm. Left upper arm. Right upper leg. Right lower leg. Left upper leg. Skeleton The following structures could not be adequately visualized: Face Maxilla. Heart / Thorax 4-chamber view. 9-wxfhwa-tsbcjlp view. Interventricular septum. Great vessels. Diaphragm. Spine: Cervical spine. Thoracic spine. Lumbar spine. Sacral spine. The following structures could not be examined: Head / Neck Neck. Face Profile. Nasal bone. Heart / Thorax RVOT view. LVOT view. 3-vessel view. Aortic arch view. Bicaval view. Ductal arch view. Abdomen Abdom. wall. Cord insertion. Genitals. Extremities / Right hand. Left forearm. Left hand. Right foot. Left lower leg. Left foot. Skeleton Doppler ----- --------- Mid Cerebral Artery: normal PI 1.45 23% Ebbing RI 0.73 38% [facility] PS 32.20 cm/s PS 1.18 MoM ED 8.85 cm/s TAmax 16.79 cm/s 94% Ebbing Maternal Structures ----- --------- Uterus Visualized Cervix Visualized Approach - Transvaginal: Cervical length 4.57 cm Right Ovary Not visualized Left Ovary Visualized Size 10 mm x 14 mm x 20 mm. Vol 1.5 cm??? Cul de Sac Visualized. No free fluid visualized Impression ----- --------- Single viable intrauterine consistent with 21w 3d with an MARIA ISABEL of 01/04/2025, with EFW measuring at the 10%. AC measures at the 27%. Transvaginal cervical length measures 4.57 cm. Posterior low lying placenta visualized measuring 1.43 cm away from the cervical os. MCA PSV is in the unremarkable range for the evaluation of anemia. Recommendations ----- --------- Please see M documentation from today. The patient is scheduled in four to six week(s) to complete anatomic survey with MCA dopplers, and office visit. Weekly MCA dopplers. Subsequent follow up or other follow up as clinically determined by primary OB provider unless otherwise specified by MFM. Results forwarded to ordering provider so they can follow up with the patient as necessary. The copy-to physician of this order is RESHMA Gongora The ordering physician of this order is YOSVANY Harmon Procedure Note Radiology, Radiologist, - 08/27/2024 THIS EXAM WAS PERFORMED AT [facility] NAME: FANI DINH : 2000 SEX: F Accession Number: [id number] ORDERING PHYSICIAN: YOSVANY CUNNINGHAM REFERRING PHYSICIAN: RESHMA ARTHUR Coding ----- --------- Procedures [id number]: Ultrasound, uterus, real time with imagedocumentation, and maternal evaluation plus detailed anatomic examination, transabdominalapproach;single or first gestation 28761: Transvaginal Ultrasound (OB) 70969: Doppler velocimetry, ; middle cerebral artery Indication ----- --------- Screening for Anatomic Survey, Screening for cervical length, Abnormalfinding on screening of mother- Anti D + (Rhogam), History of prior with delivery, History ofprior with IUGR, History of prior with pre-eclampsia, history of c-sections X 3, history of PROM History ----- --------- OB History 4. Para 3 [id number] Current ----- --------- Cell free DNA low risk analysis Maternal Assessment ----- --------- Physical Exam Height 165 cm, 5 ft 5 in. Weight 87 kg, 192 lb. Initialweight 81 kg, 178 lb. BMI 31.95 kg/m???. Initial BMI 29.62 kg/m???. Weight gain 6 kg, 14 lb Method ----- --------- Transabdominal and transvaginal ultrasound examination. View: Suboptimalview: limited by position. Suboptimal view: limited by maternal body habitus ----- --------- Lake . Number of fetuses: 1 Dating ----- --------- Previous Ultrasound on: 06/12/2024 Type of prior assessment: GA GA at prior assessment date 10 w + 4 d GA by previous U/S 21 w + 3 d MARIA ISABEL by previous Ultrasound: 01/04/2025 Ultrasound examination on: 08/27/2024 GA by U/S based upon: AC, BPD, Femur, HC GA by U/S 20 w + 0 d MARIA ISABEL by U/S: 01/14/2025 Assigned: based on ultrasound (GA), selected on 08/27/2024 Assigned GA 21 w + 3 d Assigned MARIA ISABEL: 01/04/2025 General Evaluation ----- --------- Cardiac activity Present. FHR 158 bpm. Presentation: breech Placenta: Placental site: posterior, low lying Umbilical cord: Cord vessels: 3 vessel cord. Insertion site: normalinsertion Amniotic fluid: Amount of AF: normal amount Biometry ----- --------- Standard BPD 40.1 mm 18w 1d <1% Hadlock OFD 67.7 mm 22w 5d 88% Haley HC 176.0 mm 20w 1d 3% Hadlock Cerebellum tr 21.4 mm 20w 2d 25% Hill Nuchal fold 2.7 mm AC 158.1 mm 21w 0d 27% Hadlock Femur 33.2 mm 20w 3d 12% Hadlock Humerus 34.5 mm 21w 5d 60% Haley HC / AC 1.11 EFW 360 g 10% Hadlock EFW (lb) 0 lb EFW (oz) 13 oz EFW by: Hadlock ([id number]) Extended Tibia 30.3 mm 21w 1d 41% Haley Feed Blender 5.6 mm CM 6.3 mm 78% Nicolaides Head / Face / Neck Cephalic index 0.59 <1% Nicolaides Nasal bone: not examined Extremities / Bony Struc FL / BPD 0.83 FL / HC 0.19 FL / AC 0.21 Other Structures FHR 158 bpm Anatomy ----- --------- The following structures appear normal: Head/Neck: Cranium. Lateral ventricles. Choroid plexus. Midline falx.Cavum septi pellucidi. Cerebellum. Cisterna magna. Parenchyma. Vermis. Nuchal fold. Face: Lips. Nose. Mandible. Orbits. Heart/Thorax: Situs. Cardiac position. Cardiac axis. Cardiac size. Cardiacrhythm. Right lung. Left lung. Abdomen: Stomach. Kidneys. Bladder. Small bowel. Large bowel. Right renalartery. Left renal artery. Extremities/Skeleton: Right upper arm. Right forearm. Left upper arm.Right upper leg. Right lower leg. Left upper leg. Skeleton The following structures could not be adequately visualized: Face Maxilla. Heart / Thorax 4-chamber view. 2-ruuwev-qtifaxs view. Interventricularseptum. Great vessels. Diaphragm. Spine: Cervical spine. Thoracic spine. Lumbar spine. Sacral spine. The following structures could not be examined: Head / Neck Neck. Face Profile. Nasal bone. Heart / Thorax RVOT view. LVOT view. 3-vessel view. Aortic arch view.Bicaval view. Ductal arch view. Abdomen Abdom. wall. Cord insertion. Genitals. Extremities / Right hand. Left forearm. Left hand. Right foot. Left lowerleg. Left foot. Skeleton Doppler ----- --------- Mid Cerebral Artery: normal PI 1.45 23% Ebbing RI 0.73 38% [facility] PS 32.20 cm/s PS 1.18 MoM ED 8.85 cm/s TAmax 16.79 cm/s 94% Ebbing Maternal Structures ----- --------- Uterus Visualized Cervix Visualized Approach - Transvaginal: Cervical length 4.57 cm Right Ovary Not visualized Left Ovary Visualized Size 10 mm x 14 mm x 20 mm. Vol 1.5 cm??? Cul de Sac Visualized. No free fluid visualized Impression ----- --------- Single viable intrauterine consistent with 21w 3d with an MARIA ISABEL of01/04/2025, with EFW measuring at the 10%. AC measures at the 27%. Transvaginal cervical length measures 4.57 cm. Posterior low lying placenta visualized measuring 1.43 cm away from thecervical os. MCA PSV is in the unremarkable range for the evaluation of anemia. Recommendations ----- --------- Please see M documentation from today. The patient is scheduled in four to six week(s) to complete anatomicsurvey with MCA dopplers, and office visit. Weekly MCA dopplers. Subsequent follow up or other follow up as clinically determined byprimary OB provider unless otherwise specified by [facility]. Results forwarded to ordering provider so they can follow up with thepatient as necessary. The copy-to physician of this order is RESHMA Gongora The ordering physician of this order is YOSVANY Harmon us Reshma Arthur DO IMG OB US PROCEDURES Final Resul t documented in this encounter Visit Diagnoses Not on filedocumented in this encounter Care Teams Picker Operator Relationship Specialty Start Date End Date Jewell Monzon MD [address] [place] [address] [place] [address] PCP - General Family Medicine 08/08/23 documented as of this encounter
--- OUTSIDE RECORDS SUMMARY | 2024-11-04 10:01 | XMS_ITS | Encounter Summary ---
Author Organization [facility] Address [address] [facility] [place] [address] Care Team Providers Care Brake Specialist Name Role Phone Jewell Monzon MD Primary Care Provider [phone] Encounter Details Date Type Department Care Team (Late st Contact Info) Description 08/06/2024 Results Follow-Up [facility] A[facility]OTT [address] [place] [address] Sandra Beltrán LPN [address] [place] [address] RECURRENT VAGINITIS (HTRX) Social History Tobacco Use Types Packs/Day Years Used Date Smoking Tobacco: Never Assessed Estimated Date of Delivery Comme nts Yes 01/04/2025 Based on Ultraso und Sex and Gender Information Value Date Recorded Sex Assigned at Not on file Legal Sex Female 10:13 PM EDT Gender Identity Not on file Sexual Orientation Not on file documented as of this encounter Miscellaneous Notes * Result Encounter Note - Sandra Beltrán LPN - 08/06/2024 2:44 PM EDT Pt was treated for BV 07/21/2024. Do you want me to try the gel instead or try pill form again? documented in this encounter Plan of Treatment Upcoming Encounters Date Type Department Care Team (Late st Contact Info) Description 11/11/2024 10:30 AM EDT Routine [facility] A[facility]OTT [address] [place] [address] Andrey Arthur DO [address] [facility] [place] [address] 11/25/2024 11:30 AM EDT Routine [facility] ABBOTT [address] [facility] [place] [address] Susan Patterson PA [address] [facility] [address] [place], [place] [id number] documented as of this encounter Visit Diagnoses Not on filedocumented in this encounter Care Teams Brake Specialist Relationship Specialty Start Date End Date Jewell Monzon MD [address] [place] [address] [place] [address] PCP - General Family Medicine 08/08/23 documented as of this encounter
--- OUTSIDE RECORDS SUMMARY | 2024-11-04 10:02 | XMS_ITS | Encounter Summary ---
Author Organization [facility] Address [address] [facility] [place] [address] Care Team Providers Care Dozer Operator Name Role Phone Jewell Monzon MD Primary Care Provider [phone] Encounter Details Date Type Department Care Team (Late st Contact Info) Description 10/30/2024 Bamboo flowsheet [facility] ABBOTT [address] [place] [address] Michelle Segura, PONCHO [address] [facility] [place] [address] Social History Tobacco Use Types Packs/Day Years [...] AM EDT Routine [facility] ABBOTT [address] [place] [address] Andrey Arthur DO [address] [facility] [place] [address] 11/25/2024 11:30 AM EDT Routine [facility] CANTUGYBrittany [address] [place] [address] Susan Patterson PA [address] [facility] [place] [address] documented as of this encounter Visit Diagnoses Not on filedocumented in this encounter Care Teams Dozer Operator Relationship Specialty Start Date End Date Jewell Monzon MD [address] [place] [address] [place] [address] PCP - General Family Medicine 08/08/23 documented as of this encounter
--- OUTSIDE RECORDS SUMMARY | 2024-11-04 10:02 | XMS_ITS | Encounter Summary ---
Author Organization [facility] Address [address] [place] [facility] [place] [address] Care Team Providers Care Pressurization Mechanic Name Role Phone Jewell Monzon MD Primary Care Provider [phone] Reason for Visit * Reason Comments Med Refill Encounter Details Date Type Department Care Team (Late st Contact Info) Description 03/19/2024 Refill [facility] OBROSIO [address] [facility] [place] [address] Andrey Arthur, DO [address] [facility] [address] [place], [facility]11 Yeast infection Social History Tobacco Use Types Packs/Day Years Used Date Smoking Tobacco: Never Assessed Comments Unknown Sex and Gender Information Value Date Recorded Sex Assigned at Not on file Legal Sex Female 10:13 PM EDT Gender Identity Not on file Sexual Orientation Not on file documented as of this encounter Plan of Treatment Upcoming Encounters Date Type Department Care Team (Late st Contact Info) Description 11/11/2024 10:30 AM EDT Routine [facility] OBGYBrittany [address] [place], [place] [address] [address] Andrey Arthur, DO [address] [place], [place] [address] 11/25/2024 11:30 AM EDT Routine [facility] OBGYBrittany [address] [facility] [place] [address] Susan Patterson PA [address] [place], [facility] documented as of this encounter Visit Diagnoses Diagnosis Yeast infection documented in this encounter Care Teams Pressurization Mechanic Relationship Specialty Start Date End Date Jewell Monzon MD [address] [place] [address] [place] [address] PCP - General Family Medicine 08/08/23 documented as of this encounter
--- OUTSIDE RECORDS SUMMARY | 2024-11-04 10:02 | XMS_ITS | Encounter Summary ---
Author Organization [facility] Address [address] [place] [facility] [place] [address] Care Team Providers Care Collection Teller Name Role Phone Jewell Monzon MD Primary Care Provider [phone] Encounter Details Date Type Department Care Team (Late st Contact Info) Description 07/03/2024 Abstract NOMJose Manuel ABBOTT [address] [place] [address] [place] [address] Andrey Arthur, DO [address] [place], [place] [id number] Social History Tobacco Use Types Packs/Day Years [...] 10:30 AM EDT Routine [facility] ABBOTT [address] [place], [place] [address] [address] Andrey Arthur, DO 102 [place] [address] 11/25/2024 11:30 AM EDT Routine [facility] Familia OBGYBrittany [place] [address] Susan Patterson PA [address] [place], [place] [id number] documented as of this encounter Visit Diagnoses Not on filedocumented in this encounter Care Teams Collection Teller Relationship Specialty Start Date End Date Jewell Monzon MD [address] [place] [address] [place] [address] PCP - General Family Medicine 08/08/23 documented as of this encounter
--- OUTSIDE RECORDS SUMMARY | 2024-11-04 10:02 | XMS_ITS | Encounter Summary ---
Author Organization [facility] Address [address] [place] [address] Care Team Providers Care Sr. Operations Manager Name Role Phone Jewell Monzon MD Primary Care Provider [phone] Encounter Details Date Type Department Care Team (Late st Contact Info) Description 10/03/2024 Abstract [facility] ABBOTT [address] [place] [address] [place] [address] Andrey Arthur, DO [address] [place], [place] [address] Social History Tobacco Use Types Packs/Day Years [...] 10:30 AM EDT Routine [facility] ABBOTT [address] [place], [place] [address] [address] Andrey Arthur, DO [address] [place] [address] 11/25/2024 11:30 AM EDT Routine [facility] Familia OBGYBrittany [facility] [place] [address] Susan Patterson PA [address] [place], [place] [address] documented as of this encounter Visit Diagnoses Not on filedocumented in this encounter Care Teams Sr. Operations Manager Relationship Specialty Start Date End Date Jewell Monzon MD [address] [place] [address] [place] [address] PCP - General Family Medicine 08/08/23 documented as of this encounter
--- OUTSIDE RECORDS SUMMARY | 2024-11-04 10:02 | XMS_ITS | Encounter Summary ---
Author Organization [employer] tem Address [id number] [address] [place] [address] Care Team Providers Care Head Rigger Name Role Phone No Pcp, No Pcp Primary Care Provider Unavailabl e Encounter Details Date Type Department Care Team (Late st Contact Info) Description 10/30/2024 Telephone Maternal Medicine [place] [address] [facility] [address] [place] [address] Viola Jones, JESSICA Social History Tobacco Use Types Packs/Day Years [...] as of this encounter Miscellaneous Notes * Telephone Encounter - Viola Jones RN - 10/30/2024 12:29 PM EDT Patient was a no show for her MCA dopplers today in the [place] office. Called and left a message on Dr. Arthur's nurse line regarding the no show today. documented in this encounter Plan of Treatment Upcoming Encounters Date Type Department Care Team (Late st Contact Info) Description 11/06/2024 3:15 PM EDT Appointment Maternal Medicine [place] [address] [facility] [address] [place] [address] 11/10/2024 1:00 PM EDT Appointment [facility] US Imaging [address] [facility] [place] [address] 11/10/2024 2:00 PM EDT Office Visit Maternal- Medicine at [facility] [address] [place] [address] Cristiano Williamson MD [address] [facility] [place], [address] [place] [address] documented as of this encounter Visit Diagnoses Not on filedocumented in this encounter Care Teams Head Rigger Relationship Specialty Start Date End Date No Pcp, [place] [address] PCP - General Family Medicine 08/17/22 documented as of this encounter
--- OUTSIDE RECORDS SUMMARY | 2024-11-04 10:02 | XMS_ITS | Encounter Summary ---
Author Organization [employer] tem Address [id number] [address] [place] [address] Care Team Providers Care Yard Inspector Name Role Phone No Pcp, No Pcp Primary Care Provider Unavailabl e Encounter Details Date Type Department Care Team (Late st Contact Info) Description 05/03/2021 Telephone [facility] - Women's Services [address] [place] [address] Katy Lemus MD [address] [facility] [place] [address] Social History Tobacco Use Types Packs/Day Years [...] Purpose and direction in life Unknown Comments No Sex and Gender Information Value Date Recorded Sex Assigned at Not on file Legal Sex Female 8:44 AM EDT Gender Identity Not on file Sexual Orientation Not on file COVID-19 Exposure Response Date Recorded In the last month, have you been in contact with someone who was confirmed or suspected to have Coronavirus / COVID-19? No / Unsure 04/15/2021 4:43 PM EST documented as of this encounter Miscellaneous Notes * Telephone Encounter - Katy Lemus MD - 05/03/2021 3:52 PM EST Please call patient--no appointment scheduled. If unable to contact, please also send letter--regular and certified. * Telephone Encounter - Silvia Hebert RN - 05/03/2021 3:52 PM EST Pt called no answer. Letter sent regular and certified mail by Isa Encinas documented in this encounter Plan of Treatment Upcoming Encounters Date Type Department Care Team (Late st Contact Info) Description 11/06/2024 3:15 PM EDT Appointment Maternal Medicine [place] [address] [facility] [address] [place] [address] 11/10/2024 1:00 PM EDT Appointment [facility] US Imaging [address] [place] [address] 11/10/2024 2:00 PM EDT Office Visit Maternal- Medicine at [facility] [address] [place] [address] Cristiano Williamson MD [address] [address] documented as of this encounter Visit Diagnoses Not on filedocumented in this encounter Care Teams Yard Inspector Relationship Specialty Start Date End Date No Pcp, [place] [address] PCP - General Family Medicine 08/17/22 documented as of this encounter
--- OUTSIDE RECORDS SUMMARY | 2024-11-04 10:02 | XMS_ITS | Encounter Summary ---
Author Organization [facility] Address [address] [facility] [place] [address] Care Team Providers Care Portfolio Specialist Name Role Phone Jewell Monzon MD Primary Care Provider Encounter Details Date Type Department Care Team (Late st Contact Info) Description 08/28/2024 Abstract [facility] ABBOTT [address] [place] [address] [place] [phone] Dee Dee Jiménez MA Social History [...] 10:30 AM EDT Routine [facility] Manuel ABBOTT [address] [place] [address] [place] [address] Andrey Arthur DO [address] [facility] [address] [place], [place] [id number] 11/25/2024 11:30 AM EDT Routine NOM[facility] Manuel ABBOTT [address] [place] [address] [place] [address] Susan Patterson PA [address] [facility] [address] [place], [place] [id number] documented as of this encounter Visit Diagnoses Not on filedocumented in this encounter Care Teams Portfolio Specialist Relationship Specialty Start Date End Date Jewell Monzon MD [address] [place] [address] Dr [place] [id number] PCP - General Family Medicine 08/08/23 documented as of this encounter
--- OUTSIDE RECORDS SUMMARY | 2024-11-04 10:02 | XMS_ITS | Encounter Summary ---
Author Organization [facility] tem Address [id number] [address] [place] [address] Care Team Providers Care Theatrical Trouper Name Role Phone No Pcp, No Pcp Primary Care Provider Unavailabl e Encounter Details Date Type Department Care Team ([facility] st Contact Info) Description 10/29/2024 Telephone Maternal- Medicine at [facility] [address] [place] [address] Maryan King RN Social History Tobacco Use Types Packs/Day Years [...] encounter Miscellaneous Notes * Telephone Encounter - Maryan King RN - 10/29/2024 2:57 PM EDT LVM to report patient's antibody titer result. Titers are not critical and patient is to continue to get weekly MCA dopplers and serial titers drawn every 2 weeks. documented in this encounter Plan of Treatment Upcoming Encounters Date Type Department Care Team (Late st Contact Info) Description 11/06/2024 3:15 PM EDT Appointment Maternal Medicine [place] [address] [facility] [address] [place] [address] 11/10/2024 1:00 PM EDT Appointment [facility] US Imaging [address] [place] [phone] 11/10/2024 2:00 PM EDT Office Visit Maternal- Medicine at [facility] [address] [place] [phone] Cristiano Williamson MD [address] [facility], [address] [place] [address] documented as of this encounter Visit Diagnoses Not on filedocumented in this encounter Care Teams Theatrical Trouper Relationship Specialty Start Date End Date No Pcp, [place] [address] PCP - General Family Medicine 08/17/22 documented as of this encounter
--- OUTSIDE RECORDS SUMMARY | 2024-11-04 10:02 | XMS_ITS | Encounter Summary ---
Author Organization [facility] Address [address] [facility] [place] [address] Care Team Providers Care Administrative Dietitian Name Role Phone Jewell Monzon MD Primary Care Provider [phone] Encounter Details Date Type Department Care Team (Late st Contact Info) Description 06/17/2024 Abstract [facility]OM[facility] Manuel ABBOTT [address] [place] [address] [place] [phone] Andrey Arthur, DO [address] [place], [place] [id number] Social History Tobacco Use Types Packs/Day Years [...] 10:30 AM EDT Routine [facility] ABBOTT [address] [place], [place] [address] [phone] Andrey Arthur, DO [address] [place], [place] [id number] 11/25/2024 11:30 AM EDT [facility]ine [facility] [place] [phone] Susan Patterson PA [address] [place], [place] [id number] documented as of this encounter Visit Diagnoses Not on filedocumented in this encounter Care Teams Administrative Dietitian Relationship Specialty Start Date End Date Jewell Monzon MD [address] [place] [address] [place] [address] PCP - General Family Medicine 08/08/23 documented as of this encounter
--- OUTSIDE RECORDS SUMMARY | 2024-11-04 10:02 | XMS_ITS | Encounter Summary ---
Author Organization [facility] tem Address [id number] [address] [place] [address] Care Team Providers Care Cylindrical Mixer Name Role Phone No Pcp, No Pcp Primary Care Provider Unavailabl e Encounter Details Date Type Department Care Team (Latest Contact Info) Description 10/23/2024 Travel Social History Tobacco Use Types Packs/Day Years [...] 11/06/2024 3:15 PM EDT Appointment Maternal Medicine [place] [address] [facility] [place] [address] 11/10/2024 1:00 PM EDT Appointment [facility] US Imaging [address] [place] [address] 11/10/2024 2:00 PM EDT Office Visit Maternal- Medicine at [facility] [address] [place] [address] Cristiano Williamson MD [address] [facility] [place], [address] [place] [address] documented as of this encounter Visit Diagnoses Not on filedocumented in this encounter Care Teams Cylindrical Mixer Relationship Specialty Start Date End Date No Pcp, [place] [address] PCP - General Family Medicine 08/17/22 documented as of this encounter
--- OUTSIDE RECORDS SUMMARY | 2024-11-04 10:02 | XMS_ITS | Clinical Summary ---
Author Organization [facility] Address [address] [place] [address] Care Team Providers Care Health Sciences Manager Name Role Phone Jewell Monzon MD Primary Care Provider [phone] Allergies Active Allergy Reactions Criticality Noted Date Comments Acetaminophen Hives 03/15/2017 Aripiprazole Hallucinations,Omega h,Unknown High 03/15/2017 Other Reaction(s): Hallucinating Hydrocodone Hives 03/15/2017 Hydrocodone-Acetaminop hen Rash,Unknown Low 04/16/2019 Other Reaction(s): Unknown Meloxicam Rash,Unknown Low 04/16/2019 Other Reaction(s): Constipation Other Reaction(s): hives Medications MV-Min-Fe Fum-FA-DHA ( 1 PO) Take 1 each by mouth Daily Active valACYclovir (Valtrex) 500 MG tabletIndications:H erpes simplex Take 1 tablet (500 mg) by mouth Daily 30 tablet 11 06/14/19 25 026 Active magnesium oxide (Mag-Ox) 400 MG tabletIndications:T hird trimester ([facility]) Take 1 tablet (400 mg) by mouth Daily 30 tablet 2 10/31/19 25 025 Active iron polysaccharides (ProFe) 391.3 (180 Fe) MG capsuleIndications: 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[facility]),Rh negative state in antepartum period, unspecified trimester ([facility]),Other iron deficiency anemia Take 1 capsule (391.3 mg) by mouth Daily 30 capsule 3 10/31/19 25 025 Active terconazole (Terazol 7) 0.4 % vaginal creamIndications:Ye ast infection Insert 1 applicator into the vagina at bedtime for 7 days 45 g 07/ 025 Active Problems Problem Noted Date Diagnosed Date Smoker 10/17/2022 Vaginal infection 10/17/2022 Vaginal discharge 10/17/2022 Genital herpes 10/10/2022 Estimated Date of Delivery Comme nts Yes 01/04/2025 Based on Ultraso und Encounters Date Type Department Care Team Description 10/30/2024 1:00 PM EDT Routine [facility] [address] [place] [address] Michelle Segura, PONCHO Third trimester ([facility]); 30 weeks gestation of ([facility]); 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[facility]); Rh negative state in antepartum period, unspecified trimester ([facility]); Other iron deficiency anemia 10/30/2024 Telephone [facility] [address] [place] [address] Sandra Beltrán LPN 10/30/2024 Bamboo flowsheet [facility] [address] [place] [address] Michelle Segura, PONCHO 10/24/2024 Abstract [facility] [address] [place] [address] Dee Dee Jiménez MA 10/17/2024 Abstract [facility] [address] [place] [address] Reshma Arthur DO 10/08/2024 Telephone [facility] [address] [place] [address] Jyoti Gilliam MA 10/08/2024 Telephone [facility] [address] [place] [address] Jyoti Gilliam MA 10/03/2024 Abstract [facility] [address] [place] [address] Reshma Arthur, 10/02/2024 11:00 AM EDT Routine [facility] [address] [place] [address] Susan Patterson PA 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[facility]); 26 weeks gestation of ([facility]); Second trimester ([facility]); Herpes simplex 10/02/2024 Clinisync Result Encounter [facility] External Department Unsolicited Reshma Arthur, DO 10/02/2024 Abstract [facility] [address] [place] [address] Reshma Arthur, DO 10/02/2024 Abstract [facility] [address] [place] [address] Reshma Arthur, DO 10/01/2024 Refill [facility] [address] [place] [address] Sandra Beltrán LPN Yeast infection 09/22/2024 Abstract [facility] [address] [place] [address] Dee Dee Jiménez MA 09/15/2024 11:20 AM EDT Routine [facility] [address] [place] [address] Reshma Arthur, Second trimester ([facility]); 24 weeks gestation of ([facility]); Diabetes mellitus screening; Herpes simplex; Rh negative state in antepartum period, unspecified trimester ([facility]) 09/15/2024 Bamboo flowsheet [facility] [address] [place] [address] Reshma Arthur, 09/02/2024 10:30 AM EDT Routine [facility] [address] [place] [address] Susan Patterson PA Second trimester ([facility]); 22 weeks gestation of ([facility]) 09/02/2024 Bamboo flowsheet [facility] [address] [place] [address] Susan Patterson PA 08/28/2024 Abstract [facility] [address] [place] [address] Dee Dee Jiménez [place] 08/28/2024 Abstract [facility] [address] [place] [address] Dee Dee Jiménez [place] 08/27/2024 External Result Encounter [facility] [address] [place] [address] Reshma Arthur, DO 08/18/2024 Telephone [facility] [address] [place] [address] Reshma Arthur, DO 08/13/2024 Telephone [facility] [address] [place] [address] Jyoti Gilliam [place] 08/12/2024 External Result Encounter [facility] External Department Unsolicited Hever Wallace, DO 08/12/2024 External Result Encounter [facility] External Department Unsolicited Hever Wallace, DO 08/12/2024 External Result Encounter [facility] External Department Unsolicited Hever Wallace, DO 08/07/2024 Telephone [facility] [address] [place] [address] Sandra Beltrán LPN Error (VOID this visit) 08/06/2024 Telephone [facility] [address] [place] [address] Sandra Beltrán LPN 08/06/2024 Results Follow-Up [facility] [address] [place] [address] Sandra Beltrán LPN RECURRENT VAGINITIS (HTRX) 08/05/2024 11:20 AM EDT Routine [facility] [address] [place], [place] [address] [address] Reshma Arthur, 18 weeks gestation of ([facility]); Second trimester ([facility]); Well woman exam with routine gynecological exam; Vaginal discharge; Exposure to STD 08/05/2024 External Result Encounter [facility] External Department Unsolicited Reshma Arthur, 08/05/2024 Bamboo flowsheet [facility] [place] [address] Reshma Arthur, 08/05/2024 Travel from Last 3 Months Family History Medical History Relation Name Comments Diabetes Other type 2 Relation Name Status Comments Other Social History Tobacco Use Types Packs/Day Years Used Date Smoking Tobacco: Never Assessed Tobacco Cessation:Counseling Given: Not Answered Estimated Date of Delivery Comme nts Yes 01/04/2025 Based on Ultraso und Sex and Gender Information Value Date Recorded Sex Assigned at Not on file Legal Sex Female 10:13 PM EDT Gender Identity Not on file Sexual Orientation Not on file Last Filed Vital Signs Vital Sign Reading Time Taken Comments Blood Pressure 122/82 10/30/2024 1:30 PM EDT Pulse - - Temperature - - Respiratory Rate - - Oxygen Saturation - - Inhaled Oxygen Concentration - - Weight 91.4 kg (201 lb 8 oz) 10/30/2024 1:30 PM EDT Height 162.6 cm (5' 4 ) 10/31/2023 2:22 PM EDT Body Mass Index 34.59 10/31/2023 2:22 PM EDT Plan of Treatment Upcoming Encounters Date Type Department Care Team (Late st Contact Info) Description 11/11/2024 10:30 AM EDT Routine [facility] [address] [place] [phone] Reshma Arthur, DO [address] [place] [address] 11/25/2024 11:30 AM EDT Routine [facility] [address] [place] [address] Susan Patterson PA [address] [place] [address] Health Maintenance Due Date Last Done Comments Influenza Vaccine (#1) 2024 Procedures Procedure Name Priority Date/Time Associated Diagnosis Comments [facility] ANTIBODY ID Routine 10/02/2024 1:20 PM EDT ALL MISCELLANEOUS TEST Routine 1:20 PM EDT ALL TYPE AND SCREEN Routine 10/02/2024 1 :20 PM EDT GLUCOSE 1 HOUR Routine 10/02/2024 1:20 PM EDT ALL CBC WITH AUTO DIFF Routine 1:20 PM EDT POCT URINALYSIS DIPSTICK Routine 10/02/2024 11:37 AM EDT 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[facility]) 26 weeks gestation of ([facility]) POCT URINALYSIS DIPSTICK Routine 09/15/2024 11:45 AM EDT Second trimester ([facility]) 24 weeks gestation of ([facility]) POCT URINALYSIS DIPSTICK Routine 09/02/2024 11:24 AM EDT Second trimester ([facility]) US OB 14+ WEEKS ANATOMY SCAN 08/27/2024 4:53 PM EDT AEROBIC ASHLEY CHARGE ([id number]) STAT 08/12/2024 7:11 PM EDT OB URINE DRUG SCREEN (NO THC) STAT 08/12/2024 7:11 PM EDT URINALYSIS REFLEX STAT 08/12/2024 7:1 1 PM EDT CULTURE, URINE, ROUTINE STAT 08/12/2024 7:11 PM EDT CULTURE, URINE, ROUTINE Routine 08/07/2024 4:35 PM EDT Missed menses RECURRENT VAGINITIS (HTRX) Routine 08/05/2024 12:21 PM EDT POCT URINALYSIS DIPSTICK Routine 08/05/2024 11:56 AM EDT 18 weeks gestation of ([facility]) Second trimester ([facility]) from Last 3 Months Results * GLUCOSE 1 HOUR (10/02/2024 1:20 PM EDT) [facility] GLUCOSE 1 HOUR 115 <130 mg/dL [facility] 10/02/2024 1:20 PM EDT 10/02/2024 1:23 PM EDT Narrative [facility] - 10/02/2024 2:13 PM EDT Reshma Sandhya DO LAB BLOOD ORDERABLES Final Resul t [facility] * [facility] ANTIBODY ID (10/02/2024 1:20 PM EDT) [facility] TB ANTIBODY ID PANEL D [facility] Comment: TITER=4 ANTIBODY ID AND TITER PERFORMED BY [facility]. 10/02/2024 1:20 PM EDT 10/02/2024 1:23 PM EDT Narrative [facility] - 10/05/2024 8:09 PM EDT [facility] , us Reshma Sandhya DO [facility] Final Result [facility] * ALL TYPE AND SCREEN (10/02/2024 1:20 PM EDT) [facility] BLOOD TYPE A Negative [facility] ANTIBODY SCREEN POSITIVE TB 10/02/2024 1:20 PM EDT 10/02/2024 1:23 PM EDT Narrative [facility] - 10/05/2024 8:09 PM EDT [facility] , Reshma Sandhya DO [facility] Final Result [facility] * ALL MISCELLANEOUS TEST (10/02/2024 1:20 PM EDT) [facility] MISCELLANEOUS TEST COMMENT . [facility] Comment: Test Ordered: [id number] Antibody Identification Antibody Id. #1 Anti-D CB Reference Range: . Chin Titer #1 4 CB Reference Range: . If a numerical titer result has been reported, please note that this result is the reciprocal value of titer results formerly reported as 1:2,1:4, 1:8, etc. These results are now reported as 2, 4, 8, etc. The [employer] [place] [employer] has recommended this change in titer reporting formats to simply reflect the reciprocal value of the titer. Antibody Id. #2 NAUMKEAG OPERATOR NOLAB Reference Range: . Chin Titer #2 NAUMKEAG OPERATOR NOLAB Reference Range: . Performed at: - [address] [id number] Watch Mechanic: Buddy Varela PhD, Phone: [phone] 10/02/2024 1:20 PM EDT 10/02/2024 1:23 PM EDT Narrative [facility] - 10/03/2024 2:08 PM EDT [id number] Antibody Identification us Reshma Sandhya DO [facility] Final Result [facility] * (ABNORMAL) ALL CBC WITH AUTO DIFF (10/02/2024 1:20 PM EDT) [facility] WBC 12.2(H) 4.0 - 11.0 10 3/uL [facility]H TBH RBC 3.82(L) 4.20 - 5.40 10 6/uL [facility] HGB 9.4(L) 12.0 - 16.0 g/dL [facility] HCT 29.8(L) 36.0 - 48.0 % [facility] MCV 78.0(L) 81.0 - 99.0 fL TBH [facility] MCH 24.6(L) 26.7 - 34.0 pg TBH [facility] MCHC 31.5 29.9 - 35.2 g/dL [facility] RDW 15.3(H) 11.0 - 15.0 % [facility]H TBH PLT 278 150 - 450 10 3/uL TBH TBH MPV 11.3 9.5 - 13.5 fL [facility]H NEUTROPHILS PERCENT AUTO 80.7(H) 43.0 - 75.0 % [facility] LYMPHOCYTES PERCENT AUTO 12.3(L) 20.5 - 60.0 % [facility] MONOCYTES PERCENT AUTO 6.1 1.7 - 12.0 % TBH TBH EO % 0.2(L) 0.9 - 7.0 % TBH BASOPHILS PERCENT AUTO 0.2 0.2 - 2.0 % [facility] IMMATURE GRANULOCYTES PCT AUTO 0.5 0.0 - 0.5 % TBH NEUTROPHILS ABSOLUTE AUTO 9.9(H) 1.4 - 6.5 10 3/uL TBH LYMPHOCYTES ABSOLUTE AUTO 1.5 1.2 - 3.8 10 3/uL TBH MONOCYTES ABSOLUTE AUTO 0.7 0.3 - 0.8 10 3/uL TBH TBH EO # 0.0 0.0 - 0.7 10 3/uL TBH BASOPHILS ABSOLUTE AUTO 0.0 0.0 - 0.1 10 3/uL [facility] IMMATURE GRANULOCYTES ABS AUTO 0.06(H) 0.00 - 0.03 10 3/uL [facility] 10/02/2024 1:20 PM EDT 10/02/2024 1:23 PM EDT Narrative [facility] - 10/02/2024 1:38 PM EDT us Reshma Sandhya DO [facility] * (ABNORMAL) POCT urinalysis dipstick manually resulted (10/02/2024 11:37 AM EDT) Only the most recent of4 resultswithin the time period is included. Color, UA Yellow Clarity, UA Clear Glucose, UA Negative Negative - 1999(110) ++++ mg/dL Bilirubin, UA Negative Negative - 4(70) +++ mg/dL Ketones, UA Negative Negative - 160(16) ++++ mg/dL Spec Grav, UA 1.020 1 - 1.03 Blood, UA Negative Negative - 50 Julius/mcL pH, UA 6.0 5 - 9 Protein, UA Trace Negative - 1999(20) ++++ mg/dL Urobilinogen, UA 1.0 0.2 - 12 mg/dL Leukocytes, UA Negative Negative - 500+++ Yeimi/mcL Nitrite, UA Negative Negative - Positive Urine 10/02/2024 11:3 7 AM EDT us Susan DAMON POINT OF CARE TEST ENTER/EDIT OR DERABLES Final Result * US OB 14+ weeks anatomy scan (08/27/2024 4:53 PM EDT) Anatomical Region Laterality Modality Body Ultrasound 08/27/2024 4:53 PM EDT Narrative 08/27/2024 4:53 PM EDT THIS EXAM WAS PERFORMED AT [facility] NAME: FANI DINH : 2000 SEX: F Accession Number: [id number] ORDERING PHYSICIAN: YOSVANY CUNNINGHAM REFERRING PHYSICIAN: RESHMA ARTHUR Coding ----- --------- Procedures [id number]: Ultrasound, uterus, real time with image documentation, and maternal evaluation plus detailed anatomic examination, transabdominal approach;single or first gestation 69804: Transvaginal Ultrasound (OB) 85253: Doppler velocimetry, ; middle cerebral artery Indication ----- --------- Screening for Anatomic Survey, Screening for cervical length, Abnormal finding on screening of mother- Anti D + (Rhogam), History of prior with delivery, History of prior with IUGR, History of prior with pre-eclampsia, history of c-sections X 3, history of PROM History ----- --------- OB History 4. Para 3 [id number] Current ----- --------- Cell free DNA low [...] EFW (oz) 13 oz EFW by: Hadlock ([id number]) Extended Tibia 30.3 mm 21w 1d 41% Haley Coroner'S Juror 5.6 mm CM 6.3 mm 78% Nicolaides [...] Face Maxilla. Heart / Thorax 4-chamber view. 0-xkquwh-spclfzn view. Interventricular septum. Great vessels. Diaphragm. Spine: [...] Mid Cerebral Artery: normal PI 1.45 23% [place] RI 0.73 38% [facility] 32.20 cm/s PS 1.18 MoM ED [...] is YOSVANY Harmon Procedure Note Radiology, Radiologist, MD - 08/27/2024 THIS EXAM WAS PERFORMED AT [facility] NAME: FANI DINH : 2000 SEX: F Accession Number: [id number] ORDERING PHYSICIAN: YOSVANY CUNNINGHAM REFERRING PHYSICIAN: RESHMA ARTHUR Coding ----- --------- Procedures [id number]: Ultrasound, uterus, real time with imagedocumentation, and maternal evaluation plus detailed anatomic examination, transabdominalapproach;single or first gestation 42849: Transvaginal Ultrasound (OB) 98145: Doppler velocimetry, ; middle cerebral artery Indication ----- --------- Screening for Anatomic Survey, Screening for cervical length, Abnormalfinding on screening of mother- Anti D + (Rhogam), History of prior with delivery, History ofprior with IUGR, History of prior with pre-eclampsia, history of c-sections X 3, history of PROM History ----- --------- OB History 4. Para 3 [id number] Current ----- --------- Cell free DNA low [...] EFW (oz) 13 oz EFW by: Hadlock ([id number]) Extended Tibia 30.3 mm 21w 1d 41% Haley Coroner'S Juror 5.6 mm CM 6.3 mm 78% Nicolaides [...] Face Maxilla. Heart / Thorax 4-chamber view. 4-hpwokp-xzcokbb view. Interventricularseptum. Great vessels. Diaphragm. Spine: Cervical [...] PI 1.45 23% Ebbing RI 0.73 38% [facility] PS 32.20 cm/s PS 1.18 MoM ED [...] byprimary OB provider unless otherwise specified by [facility]. Results forwarded to ordering provider so they can follow up with thepatient as necessary. The copy-to physician of this order is RESHMA Gongora The ordering physician of this order is YOSVANY Harmon us Reshma Arthur DO [facility] US PROCEDURES Final Resul t * (ABNORMAL) AEROBIC ASHLEY CHARGE ([id number]) (08/12/2024 7:11 PM EDT) AMIKACIN <16(S) 08/15/2024 10:29 AM EDT [facility] AMOXACILLIN/K CLAVULANATE <8/4(S) 08/15/2024 10:29 AM EDT [facility] AMPICILLIN >16(R) 08/15/2024 10:29 AM EDT [facility] AMPICILLIN/SULBACT AM >16/8(R) 08/15/2024 10:29 AM EDT [facility] AZTREONAM <4(S) 08/15/2024 10:29 AM EDT [facility] CEFAZOLIN 4(S) 08/15/2024 10:29 AM EDT [facility] CEFEPIME <2(S) 08/15/2024 10:29 AM EDT [facility] CEFTAZIDIME <1(S) 08/15/2024 10:29 AM EDT [facility] CEFTAZIDIME/AVIBAC HANKINS 8(S) 08/15/2024 10:29 AM EDT [facility] CEFTOLOZANE/TAZOBA CTAM <2(S) 08/15/2024 10:29 AM EDT [facility] CEFTRIAXONE <1(S) 08/15/2024 10:29 AM EDT [facility] CEFUROXIME <4(S) 08/15/2024 10:29 AM EDT [facility] CIPROFLOXACIN 0.5(I) 08/15/2024 10:29 AM EDT [facility] ERTAPENEM <0.5(S) 08/15/2024 10:29 AM EDT [facility] GENTAMICIN <2(S) 08/15/2024 10:29 AM EDT [facility] LEVOFLOXACIN <0.5(S) 08/15/2024 10:29 AM EDT [facility] MEROPENEM <1(S) 08/15/2024 10:29 AM EDT [facility] MEROPENEM/VABORBAC HANKINS <2(S) 08/15/2024 10:29 AM EDT [facility] NITROFURANTOIN <32(S) 08/15/2024 10:29 AM EDT [facility] PIPERACILLIN/TAZOB ACTAM <8(S) 08/15/2024 10:29 AM EDT [facility] TETRACYCLINE <4(S) 08/15/2024 10:29 AM EDT [facility] TIGECYCLINE <2(S) 08/15/2024 10:29 AM EDT [facility] TOBRAMYCIN <2(S) 08/15/2024 10:29 AM EDT [facility] TRIMETHOPRIM/SULFA METHOXAZOLE >2/38(R) 08/15/2024 10:29 AM EDT [facility] Urine Urine specimen obtained by clean catch procedure / Unknown 08/12/2024 7:11 PM EDT 08/12/2024 7:17 PM EDT Comment:Clean-Voided Midstre am Hever Wallace DO [facility] Final Result [facility] [address] [id number], [facility] [address] [id number] * OB URINE DRUG SCREEN (NO THC) (08/12/2024 7:11 PM EDT) [facility] AMPHETAMINE SCREEN,URINE Negative Negative 08/12/2024 7:47 PM EDT [facility] BARBITURATE SCREEN,URINE Negative Negative 08/12/2024 7:47 PM EDT [facility] BENZODIAZEPINES SCREEN,URINE Negative Negative 08/12/2024 7:47 PM EDT [facility] COCAINE SCREEN,URINE Negative Negative 08/12/2024 7:47 PM EDT [facility] OPIATE SCREEN,URINE Negative Negative [facility]12 [facility], URINE Negative Negative 08/12/2024 7:47 PM EDT [facility] Comment: These are unconfirmed results and should not be used for legal purposes. Drug Cut-Off Concentration: AMPH 1000 ng/mL ANNE 200 ng/mL SHEY 200 ng/mL COCM 300 ng/mL OP 300 ng/mL PCP 25 ng/mL Other 08/12/2024 7:11 PM EDT 08/12/2024 7:17 PM EDT Narrative [facility] - 08/12/2024 7:47 PM EDT Comment s/s of acute impairment us Hever Wallace DO LAB BLOOD ORDERABLES Final Re sult [facility] [address] [place] [address], [facility] [address] [place] [address] * (ABNORMAL) Urinalysis with reflex microscopic (08/12/2024 7:11 PM EDT) COLOR,URINE Light-Yellow Yellow 08/12/2024 7:25 PM EDT [facility] APPEARANCE,URI NE Cloudy(AA) Clear [facility]2024 [facility] SPECIFICY GRAVITY,URINE 1.019 1.001 - 1.030 08/12/2024 7:25 PM EDT [facility] PH,URINE 5.5 5.0 - 9.0 08/12/2024 7:25 PM [facility] LEUKOCYTE ESTERASE,URINE 3+(H) Negative 08/12/2024 7:25 PM [facility] NITRITE,URINE Negative Negative 08/12/2024 7:25 PM [facility] PROTEIN,URINE Trace(H) Negative 08/12/2024 7:[facility] GLUCOSE,URINE (UA) Normal Normal 08/12/2024 7:25 PM [facility] KETONES,URINE Negative Negative 08/12/2024 7:25 PM [facility] UROBILINOGEN,U RINE Normal Normal 08/12/2024 7:25 PM [facility] BILIRUBIN,URIN E Negative Negative 08/12/2024 7:25 PM [facility] OCCULT BLOOD,URINE Negative Negative 08/12/2024 7:25 PM [facility] RBC,URINE 1-2 0 - 4 [HPF] 08/12/2024 7:30 PM [facility] WBC,URINE 20-49(H) 0 - 4 [HPF] 08/12/2024 7:30 PM [facility] WBC CLUMP, URINE Occasional(H ) None Seen 08/12/2024 7:30 PM [facility] SQUAMOUS EPITHELIAL CELL,URINE 5-9(H) 0 - 2 [HPF] 08/12/2024 7:30 PM EDT [facility] BACTERIA,URINE 3+(H) None Seen 08/12/2024 7:30 PM EDT [facility] HYALINE CASTS,URINE None 0 - 8 08/12/2024 7:30 PM EDT [facility] MUCUS,URINE Rare 08/12/2024 7:30 PM EDT [facility] Other 08/12/2024 7:11 PM EDT 08/12/2024 7:17 PM EDT Narrative [facility] - 08/12/2024 7:30 PM EDT Comment c/o urinary symptoms or increased blood pressure Name Collection Type:: Clean-Voided Midstream us Hever Wallace DO LAB URINE ORDERABLES Final Re sult Performing Organization Address City/[facility] Co de Phone Number [place] [phone], [place] [phone] * Urine culture (08/12/2024 7:11 PM EDT) Only the most recent of2 resultswithin the time period is included. [facility] ORGANISM Escherichia coli 08/15/2024 10:29 AM EDT [facility] COLONY COUNT 20,000 08/15/2024 10:29 AM EDT [facility] Urine Urine specimen obtained by clean catch procedure / Unknown 08/12/2024 7:11 PM EDT 08/12/2024 7:17 PM EDT Comment:Clean-Voided Midstre am us Hever Wallace DO LAB MICROBIOLOGY - GENERAL OR DERABLES Final Result Performing Organization Address City/[facility]/ZIP Co de Phone Number [address] [address], [facility] [address] [place] [address] * (ABNORMAL) RECURRENT VAGINITIS (HTRX) (08/05/2024 12:21 PM EDT) [facility] ATOPOBIUM VAGINAE 0.000 19.961 - 24.689 ppm 08/06/2024 6:17 AM EDT [facility] ATOPOBIUM VAGINAE Not Detected 19.961 - 24.689 ppm 08/06/2024 6:17 AM EDT [facility] BVAB 2,3 (BACTERIAL VAGINOSIS ASSOCIATED BACTERIA 2, 3); MOBILUNCUS SPP 0.000 19.961 - 24.689 ppm 08/06/2024 6:17 AM EDT [facility] BVAB 2,3 (BACTERIAL VAGINOSIS ASSOCIATED BACTERIA 2, 3); MOBILUNCUS SPP Not Detected 19.961 - 24.689 ppm 08/06/2024 6:17 AM EDT [facility] OLIVA ALBICANS, PARAPSILOSIS, TROPICALIS 0.000 19.961 - 30.770 ppm 08/06/2024 6:17 AM EDT [facility] OLIVA ALBICANS, PARAPSILOSIS, TROPICALIS Not Detected 19.961 - 30.770 ppm 08/06/2024 6:17 AM EDT [facility] OLIVA GLABRATA 0.000 23.000 - 32.138 ppm 08/06/2024 6:17 AM EDT [facility] OLIVA GLABRATA Not Detected 23.000 - 32.138 ppm 08/06/2024 6:17 AM EDT [facility] OLIVA KRUSEI 0.000 23.000 - 32.271 ppm 08/06/2024 6:17 AM EDT [facility] OLIVA KRUSEI Not Detected 23.000 - 32.271 ppm 08/06/2024 6:17 AM EDT [facility] CHLAMYDIA TRACHOMATIS 0.000 23.000 - 31.467 ppm 08/06/2024 6:17 AM EDT [facility] [place] CHLAMYDIA TRACHOMATIS Not Detected 23.000 - 31.467 ppm 08/06/2024 6:17 AM EDT [facility] GARDNERELLA VAGINALIS 29.072(A) 19.961 - 24.689 ppm 08/06/2024 6:17 AM EDT [facility] [place] GARDNERELLA VAGINALIS Detected(A) 19.961 - 24.689 ppm 08/06/2024 6:17 AM EDT [facility] MEGASPHAERA (TYPES 1, 2) 0.000 19.961 - 24.689 ppm 08/06/2024 6:17 AM EDT [facility] [place] MEGASPHAERA (TYPES 1, 2) Not Detected 19.961 - 24.689 ppm 08/06/2024 6:17 AM EDT [facility] NEISSERIA GONORRHOEAE 0.000 23.000 - 32.117 ppm 08/06/2024 6:17 AM EDT [facility] [place] NEISSERIA GONORRHOEAE Not Detected 23.000 - 32.117 ppm 08/06/2024 6:17 AM EDT [facility] TRICHOMONAS VAGINALIS 0.000 23.000 - 32.119 ppm 08/06/2024 6:17 AM EDT [facility] [place] TRICHOMONAS VAGINALIS Not Detected 23.000 - 32.119 ppm 08/06/2024 6:17 AM EDT [facility] [place] MYCOPLASMA GENITALIUM 0.000 19.961 - 24.689 ppm 08/06/2024 6:17 AM EDT [facility] [place] MYCOPLASMA GENITALIUM Not Detected 19.961 - 24.689 ppm 08/06/2024 6:17 AM EDT [facility] ERMB, C; MEFA 27.476(A) 23.000 - 27.611 ppm 08/06/2024 6:17 AM EDT [facility] ERMB, C; MEFA Detected(A) 23.000 - 27.611 ppm 08/06/2024 6:17 AM EDT [facility] TET B, TET M 26.010(A) 23.000 - 27.778 ppm 08/06/2024 6:17 AM EDT [facility] TET B, TET M Detected(A) 23.000 - 27.778 ppm 08/06/2024 6:17 AM EDT [facility] Tissue 08/05/2024 12:2 1 PM EDT 08/06/2024 1:54 AM EDT us Reshma Arthur DO LAB BLOOD ORDERABLES Final Resul t [facility] [address] [place] [address] from Last 3 [place] [address] [employer] Care Teams Health Sciences Manager Relationship Specialty Start Date End Date Jewell Monzon MD [address] [place] [address] PCP - General Family Medicine 08/08/23
--- OUTSIDE RECORDS SUMMARY | 2024-11-04 10:02 | XMS_ITS | Encounter Summary ---
Author Organization [facility] tem Address [id number] [address] [place] [address] Care Team Providers Care Chief Pilot Name Role Phone No Pcp, No Pcp Primary Care Provider Unavailabl e Encounter Details Date Type Department Care Team ([facility] st Contact Info) Description 08/28/2024 Orders Only Maternal- Medicine at [facility] [address] [place] [address] Cristiano Williamson MD [address] [facility], [address] [place] [address] 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, single or unspecified fetus (Primary Dx) Social History Tobacco Use Types Packs/Day Years [...] 11/06/2024 3:15 PM EDT Appointment Maternal Medicine [place] [address] [place] [address] 11/10/2024 1:00 PM EDT Appointment [facility] - [facility] US Imaging [address] [place] [address] 11/10/2024 2:00 PM EDT Office Visit Maternal- Medicine at [facility] [address] [place] [address] Cristiano Williamson MD [address] [facility], [address] [place] [address] documented as of this encounter Visit Diagnoses Diagnosis 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
--- OUTSIDE RECORDS SUMMARY | 2024-11-04 10:02 | XMS_ITS | Encounter Summary ---
Author Organization [facility] Address [address] [facility] [address] Care Team Providers Care Avionics Technician Name Role Phone Jewell Monzon MD Primary Care Provider [phone] Encounter Details Date Type Department Care Team (Late st Contact Info) Description 10/24/2024 Abstract NOMJose Manuel ABBOTT [address] [place] [address] [place] [address] Dee Dee Jiménez MA Social History [...] 10:30 AM EDT Routine NOMJose Manuel ABBOTT [address] [place] [address] [place] [address] Andrey Arthur DO [address] [facility] [address] [place], [place] [id number] 11/25/2024 11:30 AM EDT Routine NOMJose Manuel ABBOTT [address] [place] [address] [place] [address] Susan Patterson PA [address] [facility] [address] [place], [place] [phone] documented as of this encounter Visit Diagnoses Not on filedocumented in this encounter Care Teams Avionics Technician Relationship Specialty Start Date End Date Jewell Monzon MD [address] [place] [address] Dr [place] [phone] PCP - General Family Medicine 08/08/23 documented as of this encounter
--- OUTSIDE RECORDS SUMMARY | 2024-11-04 10:02 | XMS_ITS | Encounter Summary ---
Author Organization [facility] [employer] [facility] tem Address [id number] [address] [place] [address] Care Team Providers Care Proj Engineer Name Role Phone No Pcp, No Pcp Primary Care Provider Unavailabl e Encounter Details Date Type Department Care Team (Late Contact Info) Description 10/22/2024 Orders Only Maternal- Medicine at [facility] [address] [facility] [place] [address] Maryan King RN 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, single or unspecified fetus; 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, single or unspecified fetus Social History Tobacco Use Types Packs/Day Years [...] 11/06/2024 3:15 PM EDT Appointment Maternal Medicine [place] [address] [place] [address] 11/10/2024 1:00 PM EDT Appointment [facility] US Imaging [address] [place] [address] 11/10/2024 2:00 PM EDT Office Visit Maternal- Medicine at [facility] [address] [place] [address] Cristiano Williamson MD [address] [facility] [place], [address] [place] [address] documented as of this encounter Procedures Procedure Name Priority Date/Time Associated Diagnosis Comments TYPE AND SCREEN Routine 10/20/2024 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, single or unspecified fetus 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, single or unspecified fetus documented in this encounter Results * Type and screen(includes indirect rey) (10/20/2024) ABORh A negative BLOOD BAN K - BIANKA Antibody Screen positive BLOOD BANK - BIANKA Blood Venous blood / Unknown 10/20/2024 Cristiano Williamson MD BLOOD BANK TEST ORDERABLES Final Result BLOOD BANK - BIANKA documented in this encounter Visit Diagnoses Diagnosis 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, single or unspecified fetus 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
--- OUTSIDE RECORDS SUMMARY | 2024-11-04 10:02 | XMS_ITS | Encounter Summary ---
Author Organization [facility] tem Address [id number] [address] [place] [address] Care Team Providers Care Marine Reporter Name Role Phone No Pcp, No Pcp Primary Care Provider Unavailabl e Encounter Details Date Type Department Care Team (Late Contact Info) Description 06/08/2021 Telephone [facility] Pulmonary/Sleep Medicine [address] [phone] Lashon Little RN Social History Tobacco Use Types Packs/Day [...] encounter Miscellaneous Notes * Telephone Encounter - Lashon Little RN - 06/08/2021 9:25 AM EDT Pt has not made HFU appt does not look like sh followed with OB they sent cert letter I dont see another physician to notify of lack of FU? Pneumonia in pt cxr marked as refusal documented in this encounter Plan of Treatment Upcoming Encounters Date Type Department Care Team (Late Contact Info) Description 11/06/2024 3:15 PM EDT Appointment Maternal Medicine [place] [address] [place] [address] 11/10/2024 1:00 PM EDT Appointment [facility] US Imaging [address] [place] [address] 11/10/2024 2:00 PM EDT Office Visit Maternal- Medicine at [facility] [address] [place] [address] Cristiano Williamson MD [address] [facility] [place], [address] [place] [address] documented as of this encounter Visit Diagnoses Not on filedocumented in this encounter Care Teams Marine Reporter Relationship Specialty Start Date End Date No Pcp, [place] [address] PCP - General Family Medicine 08/17/22 documented as of this encounter
--- OUTSIDE RECORDS SUMMARY | 2024-11-04 10:02 | XMS_ITS | Encounter Summary ---
Author Organization [facility] Address [address] [facility] [place] [address] Care Team Providers Care Product Distribution Specialist Name Role Phone Jewell Monzon MD Primary Care Provider [phone] Encounter Details Date Type Department Care Team (Late st Contact Info) Description 10/02/2024 Abstract [facility] Familia ABBOTT [address] [place] [address] [place] [phone] Andrey Arthur, DO [address] [place], [place] [phone] Social History Tobacco Use Types Packs/Day Years [...] 10:30 AM EDT Routine [facility] ABBOTT [address] [place], [place] [address] [address] Andrey Arthur, DO [address] [place] [address] 11/25/2024 11:30 AM EDT Routine [facility] [place] [address] Susan Patterson PA [address] [place], [place] [address] documented as of this encounter Visit Diagnoses Not on filedocumented in this encounter Care Teams Product Distribution Specialist Relationship Specialty Start Date End Date Jewell Monzon MD [address] [place] [address] [place] [address] PCP - General Family Medicine 08/08/23 documented as of this encounter
--- OUTSIDE RECORDS SUMMARY | 2024-11-04 10:02 | XMS_ITS | Encounter Summary ---
Author Organization [facility] Address [address] [facility] [place] [address] Care Team Providers Care Night Time Babysitter Name Role Phone Jewell Monzon MD Primary Care Provider [phone] Encounter Details Date Type Department Care Team (Late st Contact Info) Description 10/02/2024 Abstract [facility]ilia ABBOTT [address] [place] [address] [place] [phone] Andrey Arthur, DO [address] [place], [place] [phone] Social History Tobacco Use Types Packs/Day Years [...] 10:30 AM EDT Routine [facility] Familia ABBOTT [address] [place], [place] [address] [phone] Andrey Arthur, DO [address] [place] [address] 11/25/2024 11:30 AM EDT Routine [facility] [place] [address] Susan Patterson PA [address] [place], [place] [address] documented as of this encounter Visit Diagnoses Not on filedocumented in this encounter Care Teams Night Time Babysitter Relationship Specialty Start Date End Date Jewell Monzon MD [address] [place] [address] [place] [address] PCP - General Family Medicine 08/08/23 documented as of this encounter
--- OUTSIDE RECORDS SUMMARY | 2024-11-04 10:02 | XMS_ITS | Encounter Summary ---
Author Organization [facility] Address [address] [facility] [place] [address] Care Team Providers Care Cyber Security Administrator Name Role Phone Jewell Monzon MD Primary Care Provider [phone] Encounter Details Date Type Department Care Team (Late st Contact Info) Description 04/29/2024 Abstract NOMJose Manuel ABBOTT [address] [place] [phone] Andrey Arthur, DO [address] [place], [facility] Social History Tobacco Use Types Packs/Day Years [...] Info) Description 11/11/2024 10:30 AM EDT Routine JERONIMO ABBOTT [address] [place], [place] [address] [phone] Andrey Arthur, DO [address] [place], [place] [address] 11/25/2024 11:30 AM EDT Routine JERONIMO ABBOTT [address] [facility] [facility] [place] [address] Susan Patterson PA [address] [place], [place] [address] documented as of this encounter Visit Diagnoses Not on filedocumented in this encounter Care Teams Cyber Security Administrator Relationship Specialty Start Date End Date Jewell Monzon MD [address] [place] [address] [place] [address] PCP - General Family Medicine 08/08/23 documented as of this encounter
--- OUTSIDE RECORDS SUMMARY | 2024-11-04 10:02 | XMS_ITS | Encounter Summary ---
Author Organization [facility] tem Address [facility] [id number] [address] [place] [address] Care Team Providers Care Bundle Collector Name Role Phone No Pcp, No Pcp Primary Care Provider Unavailabl e Encounter Details Date Type Department Care Team (Late Contact Info) Description 08/13/2024 Orders Only Maternal- Medicine at [facility] [address] [place] [address] Ref Prov, [place] [address] Social History Tobacco Use Types Packs/Day Years [...] got money to buy more. Never True 08/17/2022 Within the past 12 months th e food we bought just didn't last and we didn't have money to get more. Never True 08/17/2022 Purpose - Life Answer Date Recorded Purpose [...] 11/06/2024 3:15 PM EDT Appointment Maternal Medicine [place] [address] [facility] [address] [place] [address] 11/10/2024 1:00 PM EDT Appointment [facility] US Imaging [address] [place] [address] 11/10/2024 2:00 PM EDT Office Visit Maternal- Medicine at [facility] [address] [place] [address] Cristiano Williamson MD [address] [place] [address] documented as of this encounter Procedures Procedure Name Priority Date/Time Associated Diagnosis Comments US PREG LMTD 1 OR MORE FETUS Routine 08/13/2024 1:53 PM EDT UNLISTED LAB TEST Routine 08/13/2024 1:47 PM EDT documented in this encounter Results * Ultrasound limited 1 or more fetus (08/13/2024 1:53 PM EDT) Anatomical Region Laterality Modality OB-BOX TENDER Ultrasound us Not In System Ref Prov IMG US ORDERABLES Final R esult * Unlisted Lab Test (08/13/2024 1:47 PM EDT) us Not In System Ref Prov LAB BLOOD ORDERABLES Gladis l Result MANUALLY TRANSCRIBED RESULTS documented in this encounter Visit Diagnoses Not on filedocumented in this encounter Care Teams Bundle Collector Relationship Specialty Start Date End Date No Pcp, [place] [address] PCP - General Family Medicine 08/17/22 documented as of this encounter
--- OUTSIDE RECORDS SUMMARY | 2024-11-04 10:02 | XMS_ITS | Encounter Summary ---
Author Organization [facility] [facility] tem Address [id number] [address] [place] [address] Care Team Providers Care Quality Assurance Manager Name Role Phone No Pcp, No Pcp Primary Care Provider Unavailabl e Encounter Details Date Type Department Care Team (Late Contact Info) Description 12/31/2020 Orders Only Maternal- Medicine at [facility] [address] [facility] [place] [address] Andrey Arthur, DO [address] [facility] [place] [address] Social History Tobacco Use Types Packs/Day Years [...] have Coronavirus / COVID-19? No / Unsure 01/03/2021 10:21 AM EDT documented as of this encounter Plan of Treatment Upcoming Encounters Date Type Department Care Team (Late st Contact Info) Description 11/06/2024 3:15 PM EDT Appointment Maternal Medicine [place] [address] [facility] 4 [place] [address] 11/10/2024 1:00 PM EDT Appointment [facility] US Imaging [address] [place] [address] 11/10/2024 2:00 PM EDT Office Visit Maternal- Medicine at [facility] [address] [facility] [place] [address] Cristiano Williamson MD [address] [facility] [place], [address] [place] [address] documented as of this encounter Procedures Procedure Name Priority Date/Time Associated Diagnosis Comments US OFFICE Routine 12/28/2020 documented in this encounter Results * Ultrasound office (12/28/2020) Anatomical Region Laterality Modality AMB Ultrasound us Andrey MYERS US ORDERABLES Final Result documented in this encounter Visit Diagnoses Not on filedocumented in this encounter Additional Health Concerns Infection Onset Date Last Indicated Resolved Time COVID-19 Rule-Out 04/22/2021 04/22/2021 04/22/2021 2:46 PM EST documented as of this encounter Care Teams Quality Assurance Manager Relationship Specialty Start Date End Date No Pcp, [place] [address] PCP - General Family Medicine 08/17/22 documented as of this encounter
--- OUTSIDE RECORDS SUMMARY | 2024-11-04 10:02 | XMS_ITS | Encounter Summary ---
Author Organization [facility] [employer] [facility] tem Address [id number] [address] [place] [address] Care Team Providers Care Stonecutter Name Role Phone No Pcp, No Pcp Primary Care Provider Unavailabl e Encounter Details Date Type Department Care Team (Late Contact Info) Description 10/29/2024 Orders Only Maternal- Medicine at [facility] [address] [facility] [place] [address] Maryan King RN Isoimmunization from [...] 11/06/2024 3:15 PM EDT Appointment Maternal Medicine [place] [address] [place] [address] 11/10/2024 1:00 PM EDT Appointment [facility] US Imaging [address] [place] [address] 11/10/2024 2:00 PM EDT Office Visit Maternal- Medicine at [facility] [address] [place] [address] Cristiano Williamson MD [address] [facility] [place], [address] [place] [address] documented as of this encounter Procedures Procedure Name Priority Date/Time Associated Diagnosis Comments ANTIBODY TITER Routine 10/20/2024 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, single or unspecified fetus 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, single or unspecified fetus documented in this encounter Results * Antibody titer (10/20/2024) Antibody Titer see scanned results BLOOD ARVIND [place] Blood Venous blood / Unknown 10/20/2024 Cristiano Williamson MD BLOOD BANK TEST ORDERABLES Final Result BLOOD ARVIND - BIANKA documented in this encounter Visit Diagnoses Diagnosis 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, single or unspecified fetus 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, single or unspecified fetus documented in this encounter Care Teams Stonecutter Relationship Specialty Start Date End Date No Pcp, [place] [address] PCP - General Family Medicine 08/17/22 documented as of this encounter
--- OUTSIDE RECORDS SUMMARY | 2024-11-04 10:02 | XMS_ITS | Encounter Summary ---
Author Organization [facility] Address [address] [facility] [place] [address] Care Team Providers Care Strainer Cleaner Name Role Phone Jewell Monzon MD Primary Care Provider [phone] Encounter Details Date Type Department Care Team (Late st Contact Info) Description 08/28/2024 Abstract NOMJose Manuel ABBOTT [address] [place] [address] [place] [address] Dee Dee Jiménez MA Social History [...] 10:30 AM EDT Routine NOMJose Manuel ABBOTT [address] [place] [address] [place] [address] Andrey Arthur DO [address] [facility] [address] [place], [place] [phone] 11/25/2024 11:30 AM EDT Routine NOMJose Manuel ABBOTT [address] [place] [address] [place] [address] Susan Patterson PA [address] [facility] [address] [place], [place] [address] documented as of this encounter Visit Diagnoses Not on filedocumented in this encounter Care Teams Strainer Cleaner Relationship Specialty Start Date End Date Jewell Monzon MD [address] [place] [address] Dr [place] [phone] PCP - General Family Medicine 08/08/23 documented as of this encounter
--- OUTSIDE RECORDS SUMMARY | 2024-11-04 10:02 | XMS_ITS | Encounter Summary ---
Author Organization [facility] Address [address] [facility] [address] [place] [address] Care Team Providers Care Mining Detail Draftsperson Name Role Phone Jewell Monzon MD Primary Care Provider [phone] Encounter Details Date Type Department Care Team (Late st Contact Info) Description 10/30/2024 Telephone [facility] [address] [place] [address] Sandra Beltrán LPN [address] [place] [address] Social History Tobacco Use Types Packs/Day Years [...] encounter Miscellaneous Notes * Telephone Encounter - Sandra Beltrán LPN - 10/30/2024 1:35 PM EDT Hi, I am one of the nurse for maternal medicine here in the [place] office. Today is . I just wanted to let you know. And Dr. Arthur know that patient John Carballo, date of 2000 did not show up for her Doppler her ultrasound. Here in the [place] office today, I dosee a note from yesterday's phone call that they left a message that she was to continue to the Doppler, so not know not sure where she is at, but she did not show for her Doppler day, october 30 in a [facility] office, thank you. joan Maradiaga. documented in this encounter Plan of Treatment Upcoming Encounters Date Type Department Care Team (Late st Contact Info) Description 11/11/2024 10:30 AM EDT Routine [facility]amilia ABBOTT [address] [facility] [place] [address] Andrey Arthur DO [address] [facility] [address] [place], [facility] 11/25/2024 11:30 AM EDT Routine [facility] Familia ABBOTT [address] [facility] [place] [address] Susan Patterson PA [address] [facility] [address] [place], [facility] documented as of this encounter Visit Diagnoses Not on filedocumented in this encounter Care Teams Mining Detail Draftsperson Relationship Specialty Start Date End Date Jewell Monzon MD [address] [place] [address] [place], [place] [phone] PCP - General Family Medicine 08/08/23 documented as of this encounter
--- OUTSIDE RECORDS SUMMARY | 2024-11-04 10:02 | XMS_ITS | Encounter Summary ---
Author Organization [facility] tem Address [id number] [address] [place] [address] Care Team Providers Care Corporate Statistical Financial Analyst Name Role Phone No Pcp, No Pcp Primary Care Provider Unavailabl e Encounter Details Date Type Department Care Team ([facility] st Contact Info) Description 09/12/2024 Orders Only Maternal- Medicine at [facility] [address] [facility] [place] [address] Mary Mckoy RN 21 weeks gestation of ; 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, single or unspecified fetus; History of intrauterine growth restriction in prior , currently ; History of oligohydramnios Social History Tobacco Use Types Packs/Day Years [...] 11/06/2024 3:15 PM EDT Appointment Maternal Medicine [place] [address] [place] [address] 11/10/2024 1:00 PM EDT Appointment [facility] [address] [place] [phone] 11/10/2024 2:00 PM EDT Office Visit Maternal- Medicine at [facility] [address] [place] [phone] Cristiano Williamson MD [address], [address] [place] [id number] documented as of this encounter Procedures Procedure Name Priority Date/Time Associated Diagnosis Comments UNLISTED LAB TEST Routine 06/12/2024 21 weeks gestation of 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, single or unspecified fetus History of intrauterine growth restriction in prior , currently History of oligohydramnios documented in this encounter Results * Unlisted Lab Test (06/12/2024) Unlisted lab test MANUALLY TRANSCRIBED RESULTS Comment:see attached Blood (Arm, Right) 06/12/2024 us Cristiano Williamson MD LAB BLOOD ORDERABLES Final Result MANUALLY TRANSCRIBED RESULTS documented in this encounter Visit Diagnoses Diagnosis 21 weeks gestation of 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, single or unspecified fetus History of intrauterine growth restriction in prior , currently History of oligohydramnios documented in this encounter Care Teams Corporate Statistical Financial Analyst Relationship Specialty Start Date End Date No Pcp, [place] [address] PCP - General Family Medicine 08/17/22 documented as of this encounter
--- OUTSIDE RECORDS SUMMARY | 2024-11-04 10:02 | XMS_ITS | Clinical Summary ---
Author Organization [employer] Address [id number] [address] [place] [address] Care Team Providers Care Internal Grinder Tender Name Role Phone No Pcp, No Pcp Primary Care Provider Unavailabl e Allergies Active Allergy Reactions Criticality Noted Date Comments Aripiprazole 01/20/2020 Meloxicam 01/20/2020 Hydrocodone-Acetaminophen 01/20/2020 Medications vit,calc76/iron /folic (PNV 29-1 ORAL) Take 1 tablet by mouth in the morning. Active docusate sodium (COLACE) 100 mg capsule Take 1 capsule (100 mg total) by mouth 2 (two) times a day. 60 capsule 2 Active Additional Information Patient not taking.Reported on 08/27/2024 valACYclovir (VALTREX) 500 mg tablet Take 1 tablet (500 mg total) by mouth 2 (two) times a day. 60 tablet 2 Active albuterol (PROVENTIL HFA;VENTOLIN HFA) 90 mcg/actuation inhalerIndicati ons:Pneumonia of right lower lobe due to infectious organism Inhale 2 puffs every 4 (four) hours as needed for wheezing or shortness of breath. 18 g 1 2 Active Additional Information Patient not taking.Reported on 08/27/2024 aspirin 81 mg Take one 1 tablet once a day until delivery and then stop 30 tablet 6 5 Active ferrous sulfate 325 (65 FE) MG tabletIndicatio ns:Iron deficiency anemia, unspecified iron deficiency anemia type Take 1 tablet (325 mg total) by mouth daily with breakfast. 30 tablet 1 5 Active ferrous sulfate 325 (65 FE) mg tablet Take 325 mg by mouth daily with breakfast. 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, single or unspecified fetus 10/29/2024 Telephone Maternal- Medicine at [facility] [address] [place] [address] Maryan King, JESSICA 10/23/2024 Travel 10/22/2024 Orders Only Maternal- Medicine at [facility] [address] [place] [address] Maryan King, JESSICA 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, single or unspecified fetus; 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, single or unspecified fetus 10/16/2024 Travel 10/14/2024 Telephone Maternal- Medicine at [facility] [address] [facility] [place] [address] Maryan King RN 10/09/2024 Telephone [facility] [address] [place] [address], [place] [id number] Erick Bradley CMA 10/08/2024 Telephone Maternal- Medicine at [facility] [address] [place] [address] Maryan King RN 10/07/2024 Results Follow-Up Maternal- Medicine at [facility] [address] [place] [address] Cristiano Williamson MD Antibody ID 10/07/2024 Telephone Maternal- Medicine at [facility] [address] [place] [address] Maryan King RN 10/07/2024 Orders Only Maternal- Medicine at [facility] [address] [place] [address] Cristiano Williamson MD Iron deficiency anemia, unspecified iron deficiency anemia type (Primary Dx) 10/07/2024 Orders Only Maternal- Medicine at [facility] [address] [place] [address] Maryan King RN 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, single or unspecified fetus; 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, single or unspecified fetus 10/07/2024 Travel 10/07/2024 Orders Only Maternal- Medicine at [facility] [address] [place] [address] Maryan King RN 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, single or unspecified fetus (Primary Dx); 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, single or unspecified fetus 10/07/2024 Orders Only [facility] - Labor [address] [place] [address] Cristiano Williamson MD 10/07/2024 Telephone Maternal- Medicine at [facility] [address] [place] [address] Maryan King RN 10/02/2024 Travel 10/01/2024 Telephone Maternal- Medicine at [facility] [address] [place] [address] Mirian Magallanes RN 10/01/2024 Telephone Maternal- Medicine at [facility] [address] [place] [address] Mirian Magallanes RN 09/18/2024 Travel 09/12/2024 3:30 PM EDT - 09/12/2024 11:59 PM EDT Hospital Encounter [facility] - [facility] [address] [place] [address] Cristiano Williamson MD 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, single or unspecified fetus; History of intrauterine growth restriction in prior , currently ; with history of section, antepartum Discharge Disposition: Home 09/12/2024 Travel 09/12/2024 Orders Only Maternal- Medicine at [facility] [address] [place] [address] Mary Mckoy RN 21 weeks gestation of ; 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, single or unspecified fetus; History of intrauterine growth restriction in prior , currently ; History of oligohydramnios 09/11/2024 Telephone Maternal- Medicine at [facility] [address] [address] Cristiano Williamson MD 09/11/2024 Travel 09/05/2024 11:00 AM EDT - 09/05/2024 11:59 PM EDT Hospital Encounter [facility] - [facility] [address] [place] [address] Cristiano Williamson MD 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, single or unspecified fetus; History of intrauterine growth restriction in prior , currently ; with history of section, antepartum Discharge Disposition: Home 09/05/2024 Travel 08/28/2024 Orders Only Maternal- Medicine at [facility] [address] [place] [address] Nydia Baig RN 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, single or unspecified fetus (Primary Dx); History of intrauterine growth restriction in prior , currently ; with history of section, antepartum 08/28/2024 Orders Only Maternal- Medicine at [facility] [address] [place] [address] Cristiano Williamson MD 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, single or unspecified fetus (Primary Dx) 08/27/2024 11:00 AM EDT Office Visit Maternal- Medicine at [facility] [address] [place] [address] Cristiano Williamson MD 21 weeks gestation of (Primary Dx); 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, single or unspecified fetus; History of intrauterine growth restriction in prior , currently ; History of oligohydramnios; with history of section, antepartum; History of gestational hypertension; Low lying placenta, antepartum 08/27/2024 9:34 AM EDT - 08/27/2024 11:59 PM EDT Hospital Encounter [facility] - [facility] [address] [place] [address] Encounter for anatomic survey Discharge Disposition: Home 08/27/2024 Orders Only Maternal- Medicine at [facility] [address] [place] [address] Cristiano Williamson MD 08/27/2024 Travel 08/27/2024 Abstract [facility] [address] [facility] [address] [facility] [place] [address] Cristiano Williamson MD 08/13/2024 Orders Only Maternal- Medicine at [facility] [address] [place] [address] Ref Prov, Not In System 08/07/2024 Abstract Maternal- Medicine at [facility] [address] [place] [address] Cristiano Williamson MD from Last 3 Months Immunizations Immunization Administration Dates Next Due Rho (D) Immune Globulin 01/23/2020 Family History Medical History Relation Name Comments Bipolar disorder Father Hypertension Father Diabetes Maternal Grandfather Hypertension Maternal Grandfather Diabetes Maternal Grandmother Hypertension Maternal Grandmother Drug abuse Mother High Cholesterol Mother Relation Name Status Comments Father Maternal Grandfather Maternal Grandmother Mother Social History Tobacco Use Types Packs/Day Years [...] Sign Reading Time Taken Comments Blood Pressure 125/82 08/27/2024 10:13 AM EDT Pulse 72 08/27/2024 10:13 AM EDT Temperature 36.5 C (97.7 F) 08/17/2022 12:37 PM EDT Respiratory Rate 20 08/17/2022 12:37 PM EDT Oxygen Saturation 100% 08/17/2022 12:37 PM EDT Inhaled Oxygen Concentration - - Weight 87.3 kg (192 lb 6.4 oz) 08/27/2024 10:13 AM EDT Height 165.1 cm (5' 5 ) 08/27/2024 10:13 AM EDT Body Mass Index 32.02 08/27/2024 10:13 AM EDT Plan of Treatment Upcoming Encounters Date Type Department Care Team (Late st Contact Info) Description 11/06/2024 3:15 PM EDT Appointment [facility] [place] [address] [facility] [address] [place] [address] 11/10/2024 1:00 PM EDT Appointment [facility] - [facility] [address] [place] [address] 11/10/2024 2:00 PM EDT Office Visit Maternal- Medicine at [facility] [address] [place] [address] Cristiano Williamson MD [address] [facility], [address] [place] [address] Health Maintenance Due Date Last Done Comments Depression Screening 2010 Adult BMI Follow Up Plan 2016 Pap Smear 06/16/2019 COVID-19 Vaccine (2 - 2023-2 5 season) 2023 08/20/2020 Influenza Vaccine 11/17/2024 Adult BMI Screening 08/27/2025 08/27/2024 Tobacco Screening 08/27/2025 08/27/2024 DTaP,Tdap and Td Vaccines (6 - Td or Tdap) 01/08/2027 01/08/2017, 11/07/2010, 12/16/1999, Additional history exists Medical Devices Not on file Procedures Procedure Name Priority Date/Time Associated Diagnosis Comments US MFM AMNIOTIC FLUID VOLUME ASSESSMENT Routine 10/23/2024 9:52 AM EDT Supervision of high risk , antepartum ANTIBODY TITER Routine 10/20/2024 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, single or unspecified fetus 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, single or unspecified fetus TYPE AND SCREEN Routine 10/20/2024 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, single or unspecified fetus 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, single or unspecified fetus ANTIBODY ID Routine 10/20/2024 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, single or unspecified fetus 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, single or unspecified fetus CHG DOPPLER MID CEREBRAL ARTERY Routine 10/16/2024 4:27 PM EDT Supervision of high risk , antepartum Obesity in , antepartum CBC WITH AUTO DIFFERENTIAL Routine 10/02/2024 4:00 PM EDT GLUCOSE TOLERANCE, 1 HR 50GM LOAD ( PATIENTS ONLY) Routine 10/02/2024 3:58 PM EDT TYPE AND SCREEN Routine 10/02/2024 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, single or unspecified fetus ANTIBODY TITER Routine 10/02/2024 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, single or unspecified fetus 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, single or unspecified fetus ANTIBODY ID Routine 10/02/2024 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, single or unspecified fetus 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, single or unspecified fetus US [facility] OB FOLLOW-UP, 1 FETUS Routine 09/18/2024 3:46 PM EDT 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, single or unspecified fetus History of intrauterine growth restriction in prior , currently with history of section, antepartum US [facility] AMNIOTIC FLUID VOLUME ASSESSMENT Routine 09/12/2024 4:53 PM EDT 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, single or unspecified fetus History of intrauterine growth restriction in prior , currently with history of section, antepartum US MFM LMTD OB, 1 OR MORE FETUS Routine 09/05/2024 11:40 AM EDT 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, single or unspecified fetus History of intrauterine growth restriction in prior , currently with history of section, antepartum CLINICAL PATHOLOGY REVIEW Routine 08/27/2024 12:39 PM EDT 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, single or unspecified fetus LITTLE C ANTIGEN Routine 08/27/2024 12:3 9 PM EDT 21 weeks gestation of 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, single or unspecified fetus ANTIBODY TITER Routine 08/27/2024 12:39 PM EDT 21 weeks gestation of 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, single or unspecified fetus TYPE AND SCREEN Routine 08/27/2024 12:39 PM EDT 21 weeks gestation of 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, single or unspecified fetus ANTIBODY ID Routine 08/27/2024 12:39 PM EDT 21 weeks gestation of 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, single or unspecified fetus US [facility] COMPREHENSIVE ANATOMIC SURVEY Routine 08/27/2024 12:16 PM EDT Encounter for anatomic survey US PREG LMTD 1 OR MORE FETUS Routine 08/13/2024 1:53 PM EDT UNLISTED LAB TEST Routine 08/13/2024 1:4 7 PM EDT from Last 3 Months Results * US [facility] AMNIOTIC FLUID VOLUME ASSESSMENT (10/23/2024 9:52 AM EDT) Only the most recent of6 resultswithin the time period is included. Anatomical Region Laterality Modality [employer] Ultrasound 10/23/2024 9:35 AM EDT Narrative 10/23/2024 1:11 PM EDT NAME: FANI DINH : 2000 SEX: F Accession Number: [id number] ORDERING PHYSICIAN: SE CUNNINGHAM REFERRING PHYSICIAN: SE CUNNINGHAM Coding ----- --------- Procedures 57943: Limited OB / MADE[place], 1 or More Fetuses 27364: Doppler velocimetry, ; middle cerebral artery Indication ----- --------- Abnormal finding on screening of mother- Anti D + (Rhogam), History of prior with delivery, History of prior with IUGR, History of prior with pre-eclampsia, history of c-sections X 3, history of PROM, Low lying placenta History ----- --------- OB History 4. Para 3 [id number] Current ----- --------- Cell free DNA low risk analysis Maternal Assessment ----- --------- Physical Exam Height 165 cm, 5 ft 5 in. Initial weight 81 kg, 178 lb. Initial BMI 29.62 kg/m Method ----- --------- Transabdominal ultrasound examination ----- --------- Lake . Number of fetuses: 1 Dating ----- --------- Previous Ultrasound on: 06/12/2024 Type of prior assessment: GA GA at prior assessment date 10 w + 4 d GA by previous U/S 29 w + 4 d MARIA ISABEL by previous Ultrasound: 01/04/2025 Assigned: based on ultrasound (GA), selected on 08/27/2024 Assigned GA 29 w + 4 d Assigned MARIA ISABEL: 01/04/2025 General Evaluation ----- --------- Cardiac activity Present. FHR 150 bpm. Presentation: cephalic Placenta: Placental site: posterior, previously documented away from cervical os Amniotic fluid: Amount of AF: normal amount. MVP 4.6 cm Anatomy ----- --------- The following structures appear normal: Abdomen: Stomach. Bladder. Doppler ----- --------- Mid Cerebral Artery: normal PI 1.69 8% [place] RI 0.78 42% [facility] PS 55.60 cm/s PS 1.40 MoM ED 11.96 cm/s TAmax 27.34 cm/s >99% [place] Maternal Structures ----- --------- Uterus Visualized Cervix Suboptimal Approach - Transabdominal Right Ovary Not visualized Left Ovary Not visualized Cul de Sac Suboptimal Impression ----- --------- Single viable intrauterine . Posterior low lying placenta is not evaluated on today's exam. Amniotic fluid MVP measures 4.6 cm. MCA PSV is in the unremarkable range for the evaluation of anemia. Recommendations ----- --------- Please see [facility] recommendations from prior clinical and/or ultrasound report documentation. Subsequent follow up or other follow up as clinically determined by primary OB provider unless otherwise specified by M. Results forwarded to ordering provider so they can follow up with the patient as necessary. Procedure Note Cristiano Williamson MD - 10/23/2024 NAME: FANI DINH : 2000 SEX: F Accession Number: [id number] ORDERING PHYSICIAN: SE CUNNINGHAM REFERRING PHYSICIAN: SE CUNNINGHAM Coding ----- --------- Procedures 20117: Limited OB / MADELEINE, 1 or More Fetuses 28977: Doppler velocimetry, ; middle cerebral artery Indication ----- --------- Abnormal finding on screening of mother- Anti D + (Rhogam),History of prior with delivery, History of prior with IUGR, History of prior withpre-eclampsia, history of c-sections X 3, history of PROM, Low lying placenta History ----- --------- OB History 4. Para 3 [id number] Current ----- --------- Cell free DNA low risk analysis Maternal Assessment ----- --------- Physical Exam Height 165 cm, 5 ft 5 in. Initial weight 81 kg, 178 lb.Initial BMI 29.62 kg/m Method ----- --------- Transabdominal ultrasound examination ----- --------- Lake . Number of fetuses: 1 Dating ----- --------- Previous Ultrasound on: 06/12/2024 Type of prior assessment: GA GA at prior assessment date 10 w + 4 d GA by previous U/S 29 w + 4 d MARIA ISABEL by previous Ultrasound: 01/04/2025 Assigned: based on ultrasound (GA), selected on 08/27/2024 Assigned GA 29 w + 4 d Assigned MARIA ISABEL: 01/04/2025 General Evaluation ----- --------- Cardiac activity Present. FHR 150 bpm. Presentation: cephalic Placenta: Placental site: posterior, previously documented away fromcervical os Amniotic fluid: Amount of AF: normal amount. MVP 4.6 cm Anatomy ----- --------- The following structures appear normal: Abdomen: Stomach. Bladder. Doppler ----- --------- Mid Cerebral Artery: normal PI 1.69 8% [place] RI 0.78 42% Rob PS 55.60 cm/s PS 1.40 MoM ED 11.96 cm/s TAmax 27.34 cm/s >99% [place] Maternal Structures ----- --------- Uterus Visualized Cervix Suboptimal Approach - Transabdominal Right Ovary Not visualized Left Ovary Not visualized Cul de Sac Suboptimal Impression ----- --------- Single viable intrauterine . Posterior low lying placenta is not evaluated on today's exam. Amniotic fluid MVP measures 4.6 cm. MCA PSV is in the unremarkable range for the evaluation of anemia. Recommendations ----- --------- Please see [facility] recommendations from prior clinical and/or ultrasoundreport documentation. Subsequent follow up or other follow up as clinically determined byprimary OB provider unless otherwise specified by [facility]. Results forwarded to ordering provider so they can follow up with thepatient as necessary. us Se Cunningham MD [facility] US ORDERABLES Final Resul t * Antibody ID (10/20/2024) Only the most recent of3 resultswithin the time period is included. Antibody ID see scanned results BLOOD BANK - [facility] Blood Venous blood / Unknown 10/20/2024 Cristiano Williamson MD BLOOD BANK TEST ORDERABLES Final Result Performing Organization Address [facility] de Phone Number BLOOD BANK - [facility] * Type and screen(includes indirect rey) (10/20/2024) Only the most recent of3 resultswithin the time period is included. ABORh A negative BLOOD BAN K - [facility] Antibody Screen positive [facility]LOOD [facility] - [facility] Blood Venous blood / Unknown 10/20/2024 Cristiano Williamson MD BLOOD BANK TEST ORDERABLES Final Result Performing Organization Address [facility] Phone Number BLOOD BANK - [facility] * Antibody titer (10/20/2024) Only the most recent of2 resultswithin the time period is included. Antibody Titer see scanned results [facility]LOOD B[facility] - [facility] Blood Venous blood / Unknown 10/20/2024 Cristiano Williamson MD BLOOD BANK TEST ORDERABLES Final Result Performing Organization Address [facility] de Phone Number BLOOD BANK - [facility] * CBC auto differential (10/02/2024 4:00 PM EDT) Blood Venous blood / Unknown us Not In System Ref Prov LAB BLOOD ORDERABLES Gladis l Result Performing Organization Address [facility] de Phone Number MANUALLY TRANSCRIBED RESULTS * Glucose 1h post 50g load (10/02/2024 3:58 PM EDT) Blood Venous blood / Unknown us Not In System Ref Prov LAB BLOOD ORDERABLES Gladis l Result MANUALLY TRANSCRIBED RESULTS * Antibody Titer (08/27/2024 12:39 PM EDT) Antibody Titer Anti-D Titer : 8 08/27/2024 5:04 PM EDT [facility] Blood Venous blood / Unknown Venipuncture / Unknown 08/27/2024 12:39 PM EDT 08/27/2024 12:39 PM EDT us Cristiano Williamson MD BLOOD BANK TEST ORDERABLES Final Result Performing Organization Address [facility] Co de Phone Number [facility] [address] [place] [address], [facility] [address] [place] [address], [place] * c Antigen (08/27/2024 12:39 PM EDT) Little c Antigen Positive 09/01/2024 1:32 PM EDT [facility] Blood Venous blood / Unknown Venipuncture / Unknown 08/27/2024 12:39 PM EDT 08/27/2024 12:39 PM EDT us Cristiano Williamson MD BLOOD BANK TEST ORDERABLES Final Result Performing Organization Address [facility] Co de Phone Number [facility] [address] [place] [place] [address], [facility] [address] [place] [address], [place] * Clinical Pathology Review (08/27/2024 12:39 PM EDT) Case Report Clinical Pathology Report Case: [id number] Authorizing Provider: Cristiano Williamson MD Collected: 08/27/2024 1239 Ordering Location: [facility] Received: 08/28/2024 1402 - Lab Pathologist: Lesley Hdez MD Specimen: Blood, Venous 09/01/2024 1:52 PM EDT [facility] Blood Bank Observations The patient has a history of anti-D and anti-E. Only anti-D is detected in the current sample. Anti-D current titer = 8. Critical titer generally considered to be 16. Anti-D and anti-E are clinically significant antibodies directed against corresponding Rh blood group system antigens. Both antibodies can cause hemolytic transfusion reaction and hemolytic disease of the fetus and . Epic records indicate the patient is currently and the fetus is D-positive by cell free DNA testing. On-going monitoring of anti-D titers at approximately 4 week intervals is recommended. Titers should not be used to evaluate if a previous resulted in hemolytic disease of the fetus and due to anti-D. Approximately 15% of donor units are expected to be negative for the D antigen, and most of these units will be negative for the E antigen. Additional time will be needed to identify antigen negative units and for an antiglobulin crossmatch. 09/01/2024 1:52 PM EDT [facility] Venous blood / Unknown 08/27/2024 12:39 PM EDT 08/28/2024 2:02 PM EDT us Cristiano Williamson MD PATHOLOGY/CYTOLOGY ORDERAB LES Final Result Performing Organization Address City/[facility] Co de Phone Number [facility] [address] [place] [address], [place] * Ultrasound limited 1 or more fetus (08/13/2024 1:53 PM EDT) Anatomical Region Laterality Modality OB-RUBBER GOODS TESTER Ultrasound us Not In System Ref Prov IMG US ORDERABLES Final R esult * Unlisted Lab Test (08/13/2024 1:47 PM EDT) us Not In System Ref Prov LAB BLOOD ORDERABLES Gladis de anda Result Performing Organization Address City/[facility]/ZIP Co de Phone Number MANUALLY TRANSCRIBED RESULTS from Last 3 Months Insurance [facility] MEDICAID AUTO INSURANCE [facility] MEDICAID Advance Directives * Full Code (Latest Code Status on File) Date Activated Date Inactivated Comments 04/15/2021 5:14 PM 04/25/2021 10:38 PM Care Teams Internal Grinder Tender Relationship Specialty Start Date End Date No Pcp[place] [address] PCP - General Family Medicine 08/17/22
--- OUTSIDE RECORDS SUMMARY | 2024-11-04 10:02 | XMS_ITS | Encounter Summary ---
Author Organization [facility] Address [address] [facility] [place] [address] Care Team Providers Care Photo Checker And Assembler Name Role Phone Jewell Monzon MD Primary Care Provider Andrey Arthur DO Unavailable Encounter Details Date Type Department Care Team (Late st Contact Info) Description 10/18/2022 Abstract JERONIMO ABBOTT [address] [place] [address] Suasn Patterson PA [address] [place] [address] Dr [place], [facility] Social History Tobacco Use Types Packs/Day Years Used Date Smoking Tobacco: Never Assessed Tobacco Cessation:Counseling Given: Not Answered Comments Unknown Sex and Gender Information Value Date Recorded Sex Assigned at Not on file Legal Sex Female 10:13 PM EDT Gender Identity Not on file Sexual Orientation Not on file documented as of this encounter Plan of Treatment Upcoming Encounters Date Type Department Care Team (Late st Contact Info) Description 11/11/2024 10:30 AM EDT Routine JERONIMO ABBOTT [address] [place] [address] [place] [address] Andrey Arthur DO [address] [facility] [address] Addison [place], [facility] 11/25/2024 11:30 AM EDT Routine JERONIMO ABBOTT [address] [place] [address] [place] [address] Susan Patterson PA [address] [place] [address] Dr [place], [facility] documented as of this encounter Visit Diagnoses Not on filedocumented in this encounter Care Teams Photo Checker And Assembler Relationship Specialty Start Date End Date Jewell Monzon MD [address] [place] [address] [place] [address] PCP - General Family Medicine 08/08/23 Andrey Arthur DO [address] [place] [address] [place] [address] PCP - [facility] 09/17/23 documented as of this encounter
--- OUTSIDE RECORDS SUMMARY | 2024-11-04 10:02 | XMS_ITS | Encounter Summary ---
Author Organization [facility] Address [address] [facility] [address] Care Team Providers Care Layout Designer Name Role Phone Jewell Monzon MD Primary Care Provider Encounter Details Date Type Department Care Team (Late st Contact Info) Description 10/17/2024 Abstract [facility] ABBOTT [address] [place] [address] [place] [phone] Andrey Arthur, DO [address] [place], [place] [id number] Social History Tobacco Use Types Packs/Day Years [...] 10:30 AM EDT Routine [facility] A[facility] [address] [place], [place] [address] [phone] Andrey Arthur, DO [address] [place] [address] 11/25/2024 11:30 AM EDT Routine [facility] [place] [phone] Susan Patterson PA [address] [place], [place] [id number] documented as of this encounter Visit Diagnoses Not on filedocumented in this encounter Care Teams Layout Designer Relationship Specialty Start Date End Date Jewell Monzon MD [address] [place] [address] [place] [address] PCP - General Family Medicine 08/08/23 documented as of this encounter
[2024-11-04 10:21] VITALS: BP 122/76; PULSE 68
--- OUTSIDE RECORDS SUMMARY | 2024-11-04 12:21 | XMS_ITS | CCD ---
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 Name Role Phone Unavailable Primary Care Provider UnavailKimberly Gao Primary Care Physician [phone] Linda Trujillo Unavailable Unavailable Ramona BIRMINGHAM Unavailable Unavailable Primary Care Provider Unavailinge e Unavailable Primary Care Provider UnavailEstiven Haas Primary Care Physician NAN MCGRAW Attending Unavailable NAN MCGRAW Admitting Unavailable NAN MCGRAW Primary Care Unavailable SANDHYA, DR JUSTICE Admitting Unavailable SANDHYA, DR JUSTICE Consulting Unavailable MISC, DR SORENSON Primary Care Unavailable SANDHYA, DR JUSTICE Attending Unavailable ZIEBER, DR LUIS Springer Consulting Unavailable MISC, DR SORENSON Primary Care Unavailable KARSAUL, DR FOX Attending Unavailable KARASIK, DR FOX Admitting Unavailable KARASILizandro, DR FOX Consulting Unavailable CHENG, DR DEVIN James Consulting Unavailable SANDHYA, DR JUSTICE Consulting Unavailable SANDHYA, DR JUSTICE Attending Unavailable MISC, DR SORENSON Primary Care Unavailable CHENG, DR DEVIN James Consulting Unavailable SANDHYA, DR JUSTICE Admitting Unavailable SANDHYA, DR JUSTICE Consulting Unavailable MISC, DR SORENSON Primary Care Unavailable SANDHYA, DR JUSTICE Admitting Unavailable SANDHYA, DR JUSTICE Attending Unavailable KARSAUL, DR FOX Consulting Unavailable KARSAUL, DR FOX Attending Unavailable BETTY, DR FOX Admitting Unavailable MISC, DR SORENSON Primary Care Unavailable DEVIN ALFARO Consulting Unavailable MISC, DR SORENSON Primary Care Unavailable KARASIK, DR FOX Attending Unavailable KARASIK, DR FOX Admitting Unavailable KARASIK, DR FOX Consulting Unavailable SANDHYA, DR JUSTICE Consulting Unavailable SANDHYA, DR JUSTICE Attending Unavailable MISC, DR SORENSON Primary Care Unavailable SANDHYA, DR JUSTICE Admitting Unavailable ZIEBER, DR LUIS Springer Consulting Unavailable LUCIEN, NAN Primary Care Unavailable SANDHYA, DR JUSTICE Admitting Unavailable SANDHYA, DR JUSTICE Consulting Unavailable SANDHYA, DR JUSTICE Attending Unavailable SANDHYA, DR JUSTICE Attending Unavailable MISC, DR SORENSON Primary Care Unavailable SANDHYA, DR JUSTICE Admitting Unavailable REQUEST, DR JIMENEZ LISTED Consulting Unavaila ble LUCIEN, NAN Primary Care Unavailable SANDHYA, DR JUSTICE Admitting Unavailable SANDHYA, DR JUSTICE Attending Unavailable SANDHYA, DR JUSTICE Attending Unavailable MISC, DR SORENSON Primary Care Unavailable WEST, DR DEVIN James Consulting Unavailable SANDHYA, DR JUSTICE Admitting Unavailable SANDHYA, DR JUSTICE Consulting Unavailable MISC, DR SORENSON [...] Unavailable WEST, DR DEVIN James Consulting Unavailable SANDHYA, DR JUSTICE Consulting Unavailable ISATUAMBER Attending Unavailable ISATUAMBER Admitting Unavailable MISC, DR SORENSON Primary Care Unavailable AMBER LUNSFORD Consulting Unavailable CANDY MORA Attending Unavailable CANDY MORA Admitting Unavailable PROVIDER, UNKNOWN Admitting Unavailable PROVIDER, UNKNOWN Attending Unavailable PROVIDER, UNKNOWN Admitting Unavailable PROVIDER, UNKNOWN Attending Unavailable CANDY MORA Referring Unavailable PROVIDER, UNKNOWN Attending Unavailable HAKAN MARQUEZ Referring Unavailable PROVIDER, UNKNOWN Admitting Unavailable PROVIDER, UNKNOWN Attending Unavailable PROVIDER, UNKNOWN Admitting Unavailable PROVIDER, UNKNOWN Attending Unavailable PROVIDER, UNKNOWN Admitting Unavailable MARCIA JUAREZ Primary Care Physician [phone] Jewell Monzon Primary Care Physician Jewell Monzon Primary Care Physician [phone] Jewell Monzon Attending Unavailable Andrea Faustin SGale Attending Unavailable Nicolás, MSN, [facility] Jewell Alcala Attending U Jamie Mcneil Admitting Unavailable Jamie Steven Attending Unavailable DO Ramin Andrea SGale Attending Unavailable DO Ramin Andrea SGale Attending Unavailable Adolph Aleman H Attending Unavailable Earline Bond A Attending Unavailable Nicolás, MSN, [facility] Jewell Alcala Admitting U june Monzon, MSN, [facility] Jewell Alcala Attending U Smitha Ruiz Attending Unavailable Nicolás, MSN, [facility] Jewell Alcala Attending U june Monzon, MSN, [facility] Jewell Alcala Attending U Ramona Paulson MD Primary Care Provider [phone] NON STAFF Attending Provider Unavailable Andrey Arthur DO Attending Provider MUSTAPHA BARNARD Attending Unavailabl e Jewell Monzon Attending Unavailable Jewell Monzon Attending Unavailable Jewell Monzon Attending Unavailable Jewell Monzon Attending Unavailable Kwan Batista Admitting Unavailable Kwan Batista Attending Unavailable Camryn Barros Attending Unavailable MUSTAPHA Subramanian Attending Unavailabl e Camryn Barros Attending Unavailable Jewell Monzon MD Primary Care Provider [phone] Susan Patterson PA-C Attending Provider [phone] Love, Joseit H Attending Unavailable Love, Astrit H Attending Unavailable Varun, Rositaylamyn A Attending Unavailable Itzel Elliott Attending Unavailable Itzel Elliott Attending Unavailable DO Earline Bond Attending Unavailable No Pcp, No Pcp Primary Care Provider Unavailabl e NON STAFF Primary Care Provider Unavailabl Saul Santana DO Emergency Provider Hever Wallace DO Attending Provider ANDREY ARTHUR Referring Unavailable NO PCP, NO PCP Primary Care Unavailable GENIA CORREIA Attending Unavailable GENIA CORREIA Referring Unavailable NO PCP, NO PCP Primary Care Unavailable SANDHYA, ANDREY R Referring Unavailable NO PCP, NO PCP Primary Care Unavailable DOCHEVA, NIKOLINA P Attending Unavailable SANDHYA, ANDREY R Referring Unavailable NO PCP, NO PCP Primary Care Unavailable DOCHEVA, NIKOLINA P Attending Unavailable SANDHYA, ANDREY R Referring Unavailable NO PCP, NO PCP Primary Care Unavailable Earline Bond Attending Unavailable Kwan Batista Admitting Unavailable Kwan Batista Attending Unavailable Kwan Batista Attending Unavailable Kwan Batista Admitting Unavailable Genia Correia MD Attending Provider SANDHYA, ANDREY R Referring Unavailable NO PCP, NO PCP Primary Care Unavailable SANDHYA, ANDREY R Referring Unavailable NO PCP, NO PCP Primary Care Unavailable SANDHYA, ANDREY R Referring Unavailable NO PCP, NO PCP Primary Care Unavailable YOSVANY CUNNINGHAM Referring Unavailable NO PCP, NO PCP Primary Care Unavailable SUSAN PATTERSON Attending Unavailable SANDHYA, ANDREY Attending Unavailable SANDHYA, ANDREY Attending Unavailable SUSAN PATTERSON Attending Unavailable SANDHYA, ANDREY Attending Unavailable SUSAN PATTERSON Attending Unavailable MICHELLE SEGURA Attending Unavailable Sandhya, Andrey Admitting Unavailable Sandhya, Andrey Attending Unavailable Loi, Ramona Primary Care Unavailable Susan Patterson Attending Unavailable Loi, Ramona Primary Care Unavailable Susan Patterson Admitting Unavailable NON STAFF Primary Care Unavailable Docheva, Nikolina P Admitting Unavailable Docheva, Nikolina P Attending Unavailable NON STAFF Primary Care Unavailable Saul Mark Admitting Unavailable Saul Mark Attending Unavailable Hever Wallace Attending Unavailable NON STAFF Primary Care Unavailable Hever Wallace Admitting Unavailable NON STAFF Admitting Unavailable NON STAFF Attending Unavailable Monsivais, Ramona Primary Care Unavailable Allergies Allergy Classification Reported Allergen(s) Allergy Type Date of Onset Reaction(s) Facility (20 sources) Acetaminophen / HYDROcodone; Translations: [acetaminophen-hy drocodone] Drug Allergy 01-20-20 20 Eruption of skin (disorder) [facility] (20 sources) ARIPiprazole lauroxil; Translations: [aripiprazole] Drug Allergy Hallucinations (finding) [facility] (20 sources) meloxicam; Translations: [meloxicam] Drug Allergy 01-20-20 Constipation (disorder) [facility] (20 sources) ARIPiprazole; Translations: [ARIPIPRAZOLE] Drug Allergy 03-15-20 Hallucinations, Rash, Unknown [facility] Work Phone: (20 sources) meloxicam Drug Allergy 04-16-19 Constipation, Rash, Unknown [facility] (1 source) Acetaminophen / HYDROcodone Drug Allergy [facility] (1 source) ARIPiprazole Drug Allergy [facility] (1 source) meloxicam Drug Allergy [facility] (20 sources) Acetaminophen; Translations: [acetaminophen] Drug Allergy 03-15-20 [facility] (20 sources) HYDROcodone; Translations: [hydrocodone] Drug Allergy 03-15-20 [facility] (20 sources) Acetaminophen / HYDROcodone; Translations: [HYDROCODONE-ACET AMINOPHEN] Drug Allergy 04-16-19 Rash, Unknown [facility] Work Phone: (1 source) ARIPiprazole Drug Allergy 03-15-20 [facility] Medications Current Medications Medication Drug Class(es) [...] 03/02/2022 03/05/2022 Active Start: 02-04-2022 End: 02-05-2022 [place] 325 mg-5 mg oral table t 1 tab(s), Oral, q6hr for pain for 1 day(s), 5 tab(s), Refill(s) 0, [facility]/pharmacy #[id number], 165, cm, 02/04/22 10:26:00 EST, Height/Length Dosing, 95, kg, 02/04/22 10:26:00 EST, Weight Dosing Start Date: 02/04/22 Stop Date: 02/05/22 Status: Ordered acetaminophen 325 mg / oxyCODONE hydrochloride 5 mg oral tablet (2 sources) Opioid Agonist Start: 03-02-2022 End: 03-02-2022 oxyCODONE-acetaminophen (PERCOCET) 5-325 mg per tablet albuterol 0.83 mg/ml inhalation solution (20 sources) beta2-Adrenergi c Agonist Start: 03-02-2022 End: 03-02-2022 albuterol (PROVENTIL) (2.5 MG/3ML) 0.083% nebulizer solution Start: 04-25-2021 take 2 puff(s) by in halation every four hours as needed for wheezing albuterol (PROVENTIL HFA;VENTOLIN HFA) 90 mcg/actuation inhaler Indications: Pneumonia of right lower lobe due to infectious organism Inhale 2 puffs every 4 (four) hours as needed for wheezing or shortness of breath. 18 g 1 04/25/2021 Active amoxicillin 875 mg / clavulanate 125 mg oral tablet (1 source) Penicillin-class Antibacterial Start: 02-04-2022 End: 02-14-2022 take 1 tablet by mouth every twelve hours Augmentin 875 mg oral tablet = 1 tab(s), Oral, q12hr, X 10 day(s), # 20 tab(s), Refills(s) 0, Pharmacy: [facility]/pharmacy #[id number], 165, cm, 02/04/22 10:26:00 EST, Height/Length Dosing, 95, kg, 02/04/22 10:26:00 EST, Weight Dosing Start Date: 02/04/22 Stop Date: 02/14/22 Status: Ordered aspirin 81 mg delayed release oral tablet (20 sources) Platelet Aggregation Inhibitor, Nonsteroidal Anti-inflammatory Drug Start: 08-27-2024 aspirin 81 mg Take one 1 tablet once a day until delivery and then stop 30 tablet 6 08/27/2024 Active Start: 02-27-2021 aspirin 81 mg oral capsule Refills(s) 0 Start Date: 02/27/21 Status: Ordered brompheniramine maleate 0.4 mg/ml / dextromethorphan hydrobromide 2 mg/ml / pseudoephedrine hydrochloride 6 mg/ml oral solution (1 source) alpha-Adrenergic Agonist, Uncompetitive J-twdssn-N-aspartate Receptor Antagonist, Sigma-1 Agonist Start: 05-02-2023 take 5 mL by mouth four times daily for cough and congestion Bromfed DM oral syrup 5 mL, Oral, QID for cough and congestion, 200 mL, Refill(s) 0, [facility] #24, 165, cm, 05/02/23 8:22:00 EST, Height/Length Dosing, 87.3, kg, 05/02/23 8:22:00 EST, Weight Dosing Start Date: 05/02/23 Status: Ordered calcium chloride 0.0014 meq/ml / potassium chloride 0.004 meq/ml / sodium chloride 0.103 meq/ml / sodium lactate 0.028 meq/ml injectable solution (1 source) Start: 03-02-2022 lactated ringers iv infusion cephalexin 500 mg oral capsule (7 sources) Cephalosporin Antibacterial Start: 08-12-2024 take 1 capsule by mouth twice daily Start: 07-14-2024 End: 07-21-2024 cephalexin (Keflex) 500 MG c apsule Indications: Urinary tract infection without hematuria, site unspecified Take 1 capsule (500 mg) by mouth in the morning and 1 capsule (500 mg) at noon and 1 capsule (500 mg) in the evening and 1 capsule (500 mg) before bedtime. Do all this for 7 days. 28 capsule 07/14/2024 07/21/2024 Active Start: 10-06-2023 End: 10-13-2023 take 1 capsule by mouth every twelve hours cephalexin 500 mg Cap 500 mg = 1 cap(s), Oral, q12hr, X 7 day(s), # 14 cap(s), Refills(s) 0, Pharmacy: [facility]24, 165.1, cm, 10/06/23 19:19:00 EDT, Height/Length Dosing, 83, kg, 10/06/23 19:19:00 EDT, Weight Dosing Start Date: 10/06/23 Stop Date: 10/13/23 Status: Ordered chlorhexidine gluconate 1.2 mg/ml mouthwash (9 sources) Start: 03-02-2022 End: 03-16-2022 chlorhexidine (Peridex) [...] MUCOUS MEM Twice daily April 12, 2017 1:00am March 27, 2020 7:15pm rinse mouth for at least 30 secs docusate sodium 100 mg oral capsule (20 sources) Start: 04-20-2021 End: 05-19-2023 take 1 capsule by mouth twice daily docusate sodium (COLACE) 100 mg capsule Take 1 capsule (100 mg total) by mouth 2 (two) times a day. 60 capsule 04/20/2021 Active DULoxetine 20 mg delayed release oral capsule (2 sources) Serotonin and Norepinephrine Reuptake Inhibitor Start: 10-09-2023 End: 11-08-2023 take 1 capsule by mouth twice daily Cymbalta 20 mg oral delayed release capsule 20 mg = 1 cap(s), Oral, BID, X 30 day(s), # 60 cap(s), Refills(s) 0, Pharmacy: [facility] #24, 165.1, cm, 10/09/23 9:54:00 EDT, Height/Length Dosing, 82.1, kg, 10/09/23 9:54:00 EDT, Weight Dosing Start Date: 10/09/23 Stop Date: 11/08/23 Status: Ordered ferrous sulfate 325 mg oral tablet (20 sources) Start: 10-07-2024 End: 10-07-2024 take 1 tablet by mouth once daily at breakfast ferrous sulfate 325 (65 FE) MG tablet Indications: Iron deficiency anemia, unspecified iron deficiency anemia type Take 1 tablet (325 mg total) by mouth daily with breakfast. 30 tablet 1 10/07/2024 Active Start: 02-27-2021 ferrous sulfat e Refills(s) 0 Start Date: 02/27/21 Status: Ordered 1 ml HYDROmorphone hydrochloride 1 mg/ml cartridge (1 source) Opioid Agonist Start: 03-02-2022 End: 03-02-2022 HYDROmorphone (DILAUDID) 1 mg/mL injection ibuprofen 600 mg oral tablet (6 sources) Nonsteroidal Anti-inflammatory Drug Start: 03-02-2022 take 1 tablet by mouth every six hours as needed for pain ibuprofen (MOTRIN) 600 MG tablet Take 1 Tablet by mouth every 6 hours as needed for Pain. 30 Tablet 0 03/02/2022 Active Start: 04-20-2021 End: 08-27-2024 take 1 tablet by mouth every eight hours as needed ibuprofen (ADVIL,MOTRIN) 800 mg tablet Take 1 tablet (800 mg total) by mouth every 8 (eight) hours as needed (cramping). 30 tablet 04/20/2021 08/27/2024 Discontinued (Therapy completed) magnesium oxide 400 mg oral tablet (2 sources) Start: 10-30-2024 End: 11-29-2024 take 1 tablet by mouth once daily magnesium oxide (Mag-Ox) 400 MG tablet Indications: Third trimester ([facility]) Take 1 tablet (400 mg) by mouth Daily 30 tablet 2 10/30/2024 11/29/2024 Active methylPREDNISolone 4 mg oral tablet (1 source) Corticosteroid Start: 05-02-2023 End: 05-08-2023 Medrol 4 mg Tab = 1 packet(s), Oral, As Directed, as directed on package labeling, X 6 day(s), # 21 tab(s), Refills(s) 0, Pharmacy: [facility] #24, 165, cm, 05/02/23 8:22:00 EST, Height/Length Dosing, 87.3, kg, 05/02/23 8:22:00 EST, Weight Dosing Start Date: 05/02/23 Stop Date: 05/08/23 Status: Ordered metroNIDAZOLE 500 mg oral tablet (9 sources) Nitroimidazole Antimicrobial Start: 08-07-2024 End: 08-14-2024 take 1 tablet by mouth in the morning metroNIDAZOLE (Flagyl) 500 MG tablet Indications: BV (bacterial vaginosis) Take 1 tablet (500 mg) by mouth in the morning and 1 tablet (500 mg) before bedtime. Do all this for 7 days. Do not drink alcohol while taking this medication. 14 tablet 08/07/2024 08/14/2024 Active Start: 07-21-2024 End: 08-05-2024 take 1 tablet by mouth in the morning metroNIDAZOLE (Flagyl) 500 MG tablet Indications: BV (bacterial vaginosis) Take 1 tablet (500 mg) by mouth in the morning and 1 tablet (500 mg) before bedtime. Do all this for 7 days. Do not drink alcohol while taking this medication. 14 tablet 07/21/2024 08/05/2024 Discontinued Start: 05-01-2024 End: 05-08-2024 take 1 tablet by mouth in the morning metroNIDAZOLE (Flagyl) 500 MG tablet Indications: BV (bacterial vaginosis) Take 1 tablet (500 mg) by mouth in the morning and 1 tablet (500 mg) before bedtime. Do all this for 7 days. Do not drink alcohol while taking this medication. 14 tablet 05/01/2024 05/07/2024 Discontinued 1 ml naloxone hydrochloride 0.4 mg/ml injection (1 source) Opioid Antagonist Start: 03-02-2022 naloxone (NARCAN) 0.4 MG/ML injection naproxen 500 mg oral tablet (6 sources) Nonsteroidal Anti-inflammatory Drug Start: 10-06-2023 End: 10-19-2023 take 1 tablet by mouth twice daily naproxen 500 mg Tab 500 mg = 1 tab(s), Oral, BID, X 10 day(s), # 20 tab(s), Refills(s) 0, Pharmacy: [facility]24, 165.1, cm, 10/09/23 9:54:00 EDT, Height/Length Dosing, 82.1, kg, 10/09/23 9:54:00 EDT, Weight Dosing Start Date: 10/09/23 Stop Date: 10/19/23 Status: Ordered Start: 02-19-2022 take 1 tablet by renita th twice daily as needed for pain naproxen 500 mg oral enteric coated tablet 500 mg = 1 tab(s), Oral, BID, PRN Pain, # 10 tab(s), Refills(s) 0, Pharmacy: [facility]/pharmacy #[id number], 165, cm, 02/19/22 5:46:00 EST, Height/Length Dosing, 91.5, kg, 02/19/22 5:46:00 EST, Weight Dosing Start Date: 02/19/22 Status: Ordered nitrofurantoin, macrocrystals 25 mg / nitrofurantoin, monohydrate 75 mg oral capsule (2 sources) Nitrofuran Antibacterial Start: 06-09-2024 End: 06-16-2024 take 1 capsule by mouth in the morning nitrofurantoin, macrocrystal-monohydrate, (Macrobid) 100 MG capsule Indications: Urinary tract infection without hematuria, site unspecified Take 1 capsule (100 mg) by mouth in the morning and 1 capsule (100 mg) before bedtime. Do all this for 7 days. 14 capsule 06/09/2024 06/16/2024 Active nystatin 556286 unt/ml topical cream (2 sources) Polyene Antifungal Start: 06-04-2024 nystatin Top 100,000 units/g Crm 15 gram 1 adi, Topical, TID, 15 gram, Refill(s) 0, [facility] #24, 165, cm, 06/04/24 18:37:00 EDT, Height/Length Dosing, 81.9, kg, 06/04/24 18:37:00 EDT, Weight Dosing Start Date: 06/04/24 Status: Ordered Quantity: 15.0 Unit: g Repeat number: 1 2 ml ondansetron 2 mg/ml injection (1 [...] day(s), # 12 tab(s), Refills(s) 0, Pharmacy: [facility] #24, 165.1, cm, 05/08/23 23:08:00 EST, Height/Length Dosing, 89, kg, 05/08/23 23:08:00 EST, Weight Dosing Start Date: 05/09/23 Stop Date: 05/12/23 Status: Ordered polysaccharide iron complex 391 mg oral capsule (2 sources) Start: 10-30-2024 End: 11-29-2024 take 1 capsule by mouth once daily iron polysaccharides (ProFe) 391.3 (180 Fe) MG capsule Indications: 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[facility]) , Rh negative state in antepartum period, unspecified trimester ([facility]) , Other iron deficiency anemia Take 1 capsule (391.3 mg) by mouth Daily 30 capsule 3 10/30/2024 11/29/2024 Active predniSONE 10 mg oral tablet (1 source) Start: 10-09-2023 End: 10-17-2023 take 1 tablet by mouth once daily, then take 4 tablets by mouth once daily predniSONE 10 mg Tab 10 mg, Oral, As Directed, 4 QDx2 days; 3 QDx2 d; 2 QDx2 d; 1 QDx2d; d/c, X 8 day(s), # 20 tab(s), Refills(s) 0, Pharmacy: [facility] #24, 165.1, cm, 10/09/23 9:54:00 EDT, Height/Length Dosing, 82.1, kg, 10/09/23 9:54:00 EDT, Weight Dosing Start Date: 10/09/23 Stop Date: 10/17/23 Status: Ordered Ngwsvtxt-Wrx-Tw-Fa () 1 mg Tablet (5 sources) Start: 03-27-2020 take 1 tablet by mouth once daily Start: 03-27-2020 take 1 tablet by renita th once daily Lpayzxsh-Rjb-Jb-Fa () 1 mg Tablet Active 1 TAB PO Daily March 27, 2020 1:00am Start: 03-27-2020 take 1 tablet by renita th once daily Pxgiwdtc-Dzi-Th-Fa () 1 mg Tablet Active 1 TAB PO Daily March 27, 2020 12:00am Multivitamins (6 sources) Start: 12-03-2019 take 1 tablet by mouth once daily Multivitamins 1 tab(s), Oral, Daily, Refill(s) 0 Start Date: 12/03/19 Status: Ordered MV-Min-Fe Fum-FA-DHA ( 1 PO) (20 sources) MV-Min- Fe Fum-FA-DHA ( 1 PO) Take 1 each by mouth Daily Active vit,calc76/iron/folic (PNV 29-1 ORAL) (19 sources) take 1 tablet by mouth in the morning vit,calc76/iron/folic (PNV 29-1 ORAL) Take 1 tablet by mouth in the morning. Active take 1 tablet by mouth once epifanio y vit,calc76/iron/folic (PNV 29-1 ORAL) Take 1 tablet by mouth daily. Active Vit-Fe Fumarate-FA ( 19 ORAL) (9 sources) Vit-Fe Fumarate-FA ( 19 ORAL) Take by mouth. 0 Active 24 hr propranolol hydrochloride 80 mg extended release oral capsule (6 sources) beta-Adrenergic Jens Start: take 1 capsule by mouth once daily propranolol 80 mg Cap-ER 80 mg = 1 cap(s), Oral, Daily, # 90 cap(s), Refills(s) 1, Pharmacy: [facility]/pharmacy #[id number], 165, cm, 07/10/22 14:49:00 EDT, Height/Length Dosing, 90.5, kg, 10/16/22 14:17:00 EDT, Weight Dosing Start Date: 10/16/22 Status: Ordered Start: 07-11-2022 take 1 capsule by [facility] once daily propranolol 80 mg Cap-ER 80 mg = 1 cap(s), Oral, Daily, # 90 cap(s), Refills(s) 0, Pharmacy: [facility]/pharmacy #[id number], 165, cm, 07/10/22 14:49:00 EDT, Height/Length Dosing, 92, kg, 07/10/22 14:49:00 EDT, Weight Dosing Start Date: 07/11/22 Status: Ordered sertraline 25 mg oral tablet (4 sources) Serotonin Reuptake Inhibitor Start: 05-15-2023 take 1 tablet by mouth once daily sertraline 25 mg Tab 25 mg = 1 tab(s), Oral, Daily, # 30 tab(s), Refills(s) 0, Pharmacy: [facility] #24, 168, cm, 05/15/23 13:07:00 EST, Height/Length Dosing, 86, kg, 05/15/23 13:07:00 EST, Weight Dosing Start Date: 05/15/23 Status: Ordered 10 ml sodium chloride 9 mg/ml injection (1 source) Start: 03-02-2022 sodium chlorid e 0.9 % (PF) 0.9 % injection terconazole 4 mg/ml vaginal cream (6 sources) Azole Antifungal Start: 10-01-2024 End: 10-08-2024 terconazole (Terazol 7) 0.4 % vaginal cream Indications: Yeast infection Insert 1 applicator into the vagina at bedtime for 7 days 45 g 10/01/2024 10/08/2024 Active Start: 07-21-2024 End: 08-05-2024 terconazole (Terazol 7) 0.4 % vaginal cream Indications: Yeast infection Insert 1 applicator into the vagina at bedtime for 7 days 45 g 07/21/2024 08/05/2024 Discontinued valACYclovir 500 mg oral tablet (20 sources) Herpesvirus Nucleoside Analog DNA Polymerase Inhibitor, Herpes Simplex Virus Nucleoside Analog DNA Polymerase Inhibitor, Herpes Zoster Virus Nucleoside Analog DNA Polymerase Inhibitor Start: 07-14-2024 End: 08-05-2024 take 1 tablet by mouth in the morning valACYclovir (Valtrex) 1 g tablet Indications: Herpes simplex Take 1 tablet (1,000 mg) by mouth in the morning and 1 tablet (1,000 mg) before bedtime. Do all this for 10 days. 20 tablet 07/14/2024 08/05/2024 Discontinued Start: 02-20-2024 End: 06-13-2025 take 1 tablet by mouth once daily valACYclovir (Valtrex) 500 MG tablet Indications: Herpes simplex Take 1 tablet (500 mg) by mouth Daily 30 tablet 11 06/13/2024 06/13/2025 Active Start: 04-25-2021 take 1 tablet by renita twice daily valACYclovir (VALTREX) 500 mg tablet Take 1 tablet (500 mg total) by mouth 2 (two) times a day. 60 tablet 04/25/2021 Active Completed/Discontinued Medications Medication Drug Class(es) Dates Sig (Normalized) Sig (Original) acetaminophen 325 mg oral tablet (1 source) Start: 05-09-2023 take 1-3 tablets by mouth every four hours as needed acetaminophen 325 mg Tab 650 mg = 2 tab(s), Oral, q4hr, PRN Pain 1-3, Refills(s) 0 Start Date: 05/09/23 Status: Ordered betamethasone 0.5 mg/ml / clotrimazole 10 mg/ml topical cream (3 sources) Azole Antifungal, Corticosteroid Start: 03-17-2024 End: 05-07-2024 clotrimazole-betame thasone (Lotrisone) cream Indications: Yeast infection Apply 1 application topically Daily Apply to affected area daily for 7 days 45 g 03/17/2024 05/07/2024 Discontinued desogestrel 0.15 mg / ethinyl estradiol 0.03 mg oral tablet (3 sources) Progestin, Estrogen Start: 02-20-2024 End: 02-19-2025 take 1 tablet by mouth once daily, then take 1 tablet by mouth once daily desogestrel-ethinyl estradiol (Apri) 0.15-30 MG-MCG tablet Indications: control counseling Take 1 tablet by mouth Daily Take 1 tablet by mouth daily 28 tablet 11 02/20/2024 05/07/2024 Discontinued fluconazole 150 mg oral tablet (2 sources) Azole Antifungal Start: 05-01-2024 End: 05-07-2024 take 1 tablet by mouth once fluconazole (Diflucan) 150 MG tablet Indications: Yeast infection Take 1 tablet (150 mg) by mouth every 3rd (third) day for 2 doses 2 tablet 05/01/2024 05/07/2024 Discontinued phenazopyridine hydrochloride 100 mg oral tablet (1 source) Start: 06-09-2024 End: 06-12-2024 take 1 tablet by mouth three times daily as needed for muscle spasms phenazopyridine (Pyridium) 100 MG tablet Indications: Urinary tract infection without hematuria, site unspecified Take 1 tablet (100 mg) by mouth 3 (three) times a day as needed for bladder spasms for up to 2 days 6 tablet 06/09/2024 06/12/2024 Discontinued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 Julius/mcL [facility] Healthcare Clarity, UA Clear [facility] Color, UA Yellow [facility] Glucose, UA Negative Negative - 1999(110) ++++ mg/dL [facility] Interpretation and review of laboratory results Normal [facility] Ketones, UA Negative Negative - 160(16) ++++ mg/dL [facility] Leukocytes, UA Negative Negative - 500+++ Yeimi/mcL [facility] Nitrite, UA Negative Negative - Positive [facility] pH, UA 7 5 - 9 [facility] Protein, UA Negative Negative - 1999(20) ++++ mg/dL [facility] Spec Grav, UA 1.02 1 - 1.03 [facility] Urobilinogen, UA 1.0 0.2 - 12 mg/dL [facility] Urinalysis macro (dipstick) panel (U)Ordered By: Dee Dee Jiménez on 09-02-2024 Bilirubin, UA Negative Negative - 4(70) +++ mg/dL [facility] Blood, UA Negative Negative - 50 Julius/mcL [facility] Clarity, UA Clear [facility] Color, UA Yellow [facility] Glucose, UA Negative Negative - 2000(110) ++++ mg/dL [facility] Interpretation and review of laboratory results Normal [facility] Ketones, UA Negative Negative - 160(16) ++++ mg/dL [facility] Leukocytes, UA Negative Negative - 500+++ Yeimi/mcL [facility] Nitrite, UA Negative Negative - Positive [facility] pH, UA 6 5 - 9 [facility] Protein, UA Negative Negative - 2000(20) ++++ mg/dL [facility] Spec Grav, UA 1.025 1 - 1.03 [facility] Urobilinogen, UA 0.2 0.2 - 12 mg/dL [facility] ANTIBODY IDon 08-27-2024 ANTIBODY ID No new antibodies Normal [facility] Comment on above: Result Comment: Prev ious Anti-D,E Anti-E not showing in solid phase testing. Titer not indicated. Performed By: #### A BID #### [facility] ([facility]) [address] [place] [address] VIR Antibody IDon 08-27-2024 Antibody ID No new antibodies [facility] Comment on above: Previous Anti-D,E Anti-E not showing in solid phase testing. Titer not indicated. [facility] LITTLE C ANTIGENon LITTLE C ANTIGEN Positive Normal [facility] Comment on above: Performed By: #### L TC #### [facility] ([facility]) [address] [place] [address] VIR TYPE AND SCREENon 08-27-2024 ABO_INTEP A Normal [facility] Comment on above: Performed By: #### T SC #### [facility] ([facility]) [address] [place] [address] VIR RH_INTEP Negative Normal [facility] Comment on above: Performed By: #### T SC #### [facility] ([facility]) [address] [place] [address] VIR Type and screen(includes ind irect chin)on 08-27-2024 ABO A [facility] Rh Nom (Bld) Negative [facility] Amphetamine Screen Ql (U)Ord ered By: Hever Wallace on 08-12-2024 Amphetamines Ql (U) Amphetamines screen Negativ e [facility] Amphetamines Ql (U) Negative Negative [facility] Appearance of UrineOrdered B y: Hever Wallace on 08-12-2024 Appearance (U) Urine appearance Abnormal Clear [facility] Appearance (U) Cloudy Critically abnormal Clear [facility] Comment on above: Order Comment: Comme nt c/o urinary symptoms or increased blood pressure Name Collection Type:: Clean-Voided Midstream Performed By: #### C UU, ADDONUAPLUS, OBUDS #### [facility] [address] Bacteria [Presence] in Urine by AutomatedOrdered By: Hever Wallace on 08-12-2024 Bacteria Auto Ql (U) Bacteria [Presence] in Urine by Automated High None Seen [facility] Bacteria Auto Ql (U) 3+ [HPF] High None Seen [facility] Barbiturates [Presence] in U rine by Screen methodOrdered By: Hever Wallace on 08-12-2024 Barbiturates Screen Ql (U) Barbiturates [Presence] in Urine by Screen method Negative [facility] Barbiturates Screen Ql (U) Negative Negative [facility] Benzodiazepines Screen Ql (U )Ordered By: Hever Wallace on 08-12-2024 Benzodiazepines Ql (U) Benzodiazepines [Presence] in Urine by Screen method Negative [facility] Benzodiazepines Ql (U) Negative Negative [facility] Benzoylecgonine [Presence] i n Urine by Screen methodOrdered By: Hever Wallace on 08-12-2024 Benzoylecgonine Screen Ql (U) Benzoylecgonine [Presence] in Urine by Screen method Negative [facility] Benzoylecgonine Screen Ql (U) Negative Negative [facility] Bilirubin Test strip Ql (U)O rdered By: Hever Wallace on 08-12-2024 Bilirubin Ql (U) Bilirubin.total [Presence] in Urine by Test strip Negative [facility] Bilirubin Ql (U) Negative Negative [facility] Color Auto (U)Ordered By: Lilian Wallace on 08-12-2024 Color (U) Color of Urine by Auto Yellow [facility] Color of Urine by AutoOrdere d By: Hever Wallace on 08-12-2024 Color (U) Light-yellow Normal Yellow [facility] Comment on above: Order Comment: Comme nt c/o urinary symptoms or increased blood pressure Name Collection Type:: Clean-Voided Midstream Performed By: #### C UU, ADDONUAPLUS, OBUDS #### [place] [address] [place] Dipstick and Microscopicon 0 08-12-2024 Bacteria,Urine 3+ High None Seen [facility] Comment on above: Order Comment: Comme nt c/o urinary symptoms or increased blood pressure Name Collection Type:: Clean-Voided Midstream Performed By: #### C UU, ADDONUAPLUS, OBUDS #### [place] [address] [place] Bilirubin,Urine Negative Normal Negative [facility] Comment on above: Order Comment: Comme nt c/o urinary symptoms or increased blood pressure Name Collection Type:: Clean-Voided Midstream Performed By: #### C UU, ADDONUAPLUS, OBUDS #### [facility] [address] [place] [id number] [place] Glucose Ql (U) Normal Normal Normal [facility] Comment on above: Order Comment: Comme nt c/o urinary symptoms or increased blood pressure Name Collection Type:: Clean-Voided Midstream Performed By: #### C UU, ADDONUAPLUS, OBUDS #### [facility] [address] [place] [address] [place] Hyaline Casts,Urine None Normal 0-8 [facility] Comment on above: Order Comment: Comme nt c/o urinary symptoms or increased blood pressure Name Collection Type:: Clean-Voided Midstream Performed By: #### C UU, ADDONUAPLUS, OBUDS #### [place] [address] [place] Mucus,Urine Rare Normal [facility] Comment on above: Order Comment: Comme nt c/o urinary symptoms or increased blood pressure Name Collection Type:: Clean-Voided Midstream Result Comment: PERF ORMED BY: [place] [address] PATHOLOGIST TANK OPERATOR MARQUITA LICONA M.D. Performed By: #### C UU, ADDONUAPLUS, OBUDS #### [address] Nitrite,Urine Negative Normal Negative [facility] Comment on above: Order Comment: Comme nt c/o urinary symptoms or increased blood pressure Name Collection Type:: Clean-Voided Midstream Performed By: #### C UU, ADDONUAPLUS, OBUDS #### [address] Occult Blood,Urine Negative Normal Negative [facility] Comment on above: Order Comment: Comme nt c/o urinary symptoms or increased blood pressure Name Collection Type:: Clean-Voided Midstream Result Comment: PERF ORMED BY: [place] [address] PATHOLOGIST TANK OPERATOR MARQUITA LICONA M.D. Performed By: #### C UU, ADDONUAPLUS, OBUDS #### [place] [address] [place] Protein,Urine Trace High Negative [facility] Comment on above: Order Comment: Comme nt c/o urinary symptoms or increased blood pressure Name Collection Type:: Clean-Voided Midstream Performed By: #### C UU, ADDONUAPLUS, OBUDS #### [address] RBC,Urine 1-2 Normal 0-4 [facility] Comment on above: Order Comment: Comme nt c/o urinary symptoms or increased blood pressure Name Collection Type:: Clean-Voided Midstream Performed By: #### C UU, ADDONUAPLUS, OBUDS #### [address] Specificy [place],Urine 1.019 Normal 1.001-1.030 [facility] Comment on above: Order Comment: Comme nt c/o urinary symptoms or increased blood pressure Name Collection Type:: Clean-Voided Midstream Performed By: #### C UU, ADDONUAPLUS, OBUDS #### [address] Squamous Epithelial Cell,Urine 5-9 High 0-2 [facility] Comment on above: Order Comment: Comme nt c/o urinary symptoms or increased blood pressure Name Collection Type:: Clean-Voided Midstream Performed By: #### C UU, ADDONUAPLUS, OBUDS #### [address] Urobilinogen,Urine Normal Normal Normal [facility] Comment on above: Order Comment: Comme nt c/o urinary symptoms or increased blood pressure Name Collection Type:: Clean-Voided Midstream Performed By: #### C UU, ADDONUAPLUS, OBUDS #### [address] WBC CLUMP, Urine Occasional High None Seen [facility] Comment on above: Order Comment: Comme nt c/o urinary symptoms or increased blood pressure Name Collection Type:: Clean-Voided Midstream Performed By: #### C UU, ADDONUAPLUS, OBUDS #### [address] WBC,Urine 20-49 High 0-4 [facility] Comment on above: Order Comment: Comme nt c/o urinary symptoms or increased blood pressure Name Collection Type:: Clean-Voided Midstream Performed By: #### C UU, ADDONUAPLUS, OBUDS #### [facility] [address] Epithelial cells.squamous [# /area] in Urine sediment by Automated countOrdered By: Hever Wallace on 08-12-2024 Epithelial cells.squamous Auto (Urine sed) [#/Area] Epithelial cells.squamous [#/area] in Urine sediment by Automated count High 0-2 [facility] Epithelial cells.squamous Auto (Urine sed) [#/Area] 5-9 [HPF] High 0-2 [facility] Erythrocytes [#/area] in Uri ne sediment by Automated countOrdered By: Hever Wallace on 08-12-2024 RBC Auto (Urine sed) [#/Area] Erythrocytes [#/area] in Urine sediment by Automated count 0-4 [facility] RBC Auto (Urine sed) [#/Area] 1-2 [HPF] 0-4 [facility] Glucose [Mass/volume] in Uri ne by Test stripOrdered By: Hever Wallace on 08-12-2024 Glucose Test strip (U) [Mass/Vol] Glucose [Mass/volume] in Urine by Test strip Normal [facility] Glucose Test strip (U) [Mass/Vol] Normal mg/dL Normal [facility] Hemoglobin Test strip Ql (U) Ordered By: Hever Wallace on 08-12-2024 Hemoglobin Ql (U) Hemoglobin [Presence] in Urine by Test strip Negative [facility] Hemoglobin Ql (U) Negative Negative [facility] Hyaline casts [#/area] in Ur ine sediment by Automated countOrdered By: Hever Wallace on 08-12-2024 Hyaline casts Auto (Urine sed) [#/Area] Hyaline casts [#/area] in Urine sediment by Automated count 0-8 [facility] Hyaline casts Auto (Urine sed) [#/Area] None [LPF] 0-8 [facility] Ketones Test strip Ql (U)Ord ered By: Hever Wallace on 08-12-2024 Ketones Ql (U) Ketones [Presence] in Urine by Test strip Negative [facility] Ketones [Presence] in Urine by Test stripOrdered By: Hever Wallace on 08-12-2024 Ketones Ql (U) Negative Normal Negative [facility] Comment on above: Order Comment: Comme nt c/o urinary symptoms or increased blood pressure Name Collection Type:: Clean-Voided Midstream Performed By: #### C UU, ADDONUAPLUS, OBUDS #### [facility] [address] Leukocyte clumps [Presence] in Urine by AutomatedOrdered By: Hever Wallace on 08-12-2024 Leukocyte clumps Auto Ql (U) Leukocyte clumps [Presence] in Urine by Automated High None Seen [facility] Leukocyte clumps Auto Ql (U) Occasional [LPF] High None Seen [facility] Leukocyte esterase [Presence ] in Urine by Test stripOrdered By: Hever Wallace on 08-12-2024 Leukocyte esterase Test strip Ql (U) Leukocyte esterase [Presence] in Urine by Test strip High Negative [facility] Leukocyte esterase Test strip Ql (U) 3+ High Negative [facility] Comment on above: Order Comment: Comme nt c/o urinary symptoms or increased blood pressure Name Collection Type:: Clean-Voided Midstream Performed By: #### C UU, ADDONUAPLUS, OBUDS #### [facility] [address] Leukocytes [#/area] in Urine sediment by Automated countOrdered By: Hever Wallace on 08-12-2024 WBC Auto (Urine sed) [#/Area] Leukocytes [#/area] in Urine sediment by Automated count High 0-4 [facility] WBC Auto (Urine sed) [#/Area] 20-49 [HPF] High 0-4 [facility] Mucus [Presence] in Urine by AutomatedOrdered By: Hever Wallace on 08-12-2024 Mucus Auto Ql (U) Mucus [Presence] in Urine by Automated [facility] Mucus Auto Ql (U) Rare [LPF] [facility] Nitrite Test strip Ql (U)Ord ered By: Hever Wallace on 08-12-2024 Nitrite Ql (U) Nitrite [Presence] in Urine by Test strip Negative [facility] Nitrite Ql (U) Negative Negative [facility] OB URINE DRUG SCREEN (NO THC )on 08-12-2024 AMPHETAMINE SCREEN,URINE Negative Negative [facility] BARBITURATE SCREEN,URINE Negative Negative [facility] BENZODIAZEPINES SCREEN,URINE Negative Negative [facility] COCAINE SCREEN,URINE Negative Negative [facility] OPIATE SCREEN,URINE Negative Negative [facility] PHENCYCLIDINE SCREEN, URINE Negative Negative [facility] Comment on above: These are unconfirme d results and should not be used for legal purposes. Drug Cut-Off Concentration: AMPH 1000 ng/mL ANNE 200 ng/mL SHEY 200 ng/mL COCM 300 ng/mL OP 300 ng/mL PCP 25 ng/mL Comment s/s of acute impairment [facility] OB Urine Drug Screen (NO THC )on 08-12-2024 Amphetamine Screen,Urine Negative Normal Negative [facility] Comment on above: Order Comment: Comme nt s/s of acute impairment Performed By: #### C UU, ADDONUAPLUS, OBUDS #### [place] [address] [place] Barbiturate Screen,Urine Negative Normal Negative [facility] Comment on above: Order Comment: Comme nt s/s of acute impairment Performed By: #### C UU, ADDONUAPLUS, OBUDS #### [place] [address] [place] Benzodiazepines Screen,Urine Negative Normal Negative [facility] Comment on above: Order Comment: Comme nt s/s of acute impairment Performed By: #### C UU, ADDONUAPLUS, OBUDS #### [facility] [address] [place] [address] [place] Cocaine Screen,Urine Negative Normal Negative [facility] Comment on above: Order Comment: Comme nt s/s of acute impairment Performed By: #### C UU, ADDONUAPLUS, OBUDS #### [facility] [address] [place] [address] [place] Opiate Screen,Urine Negative Normal Negative [facility] Comment on above: Order Comment: Comme nt s/s of acute impairment Performed By: #### C UU, ADDONUAPLUS, OBUDS #### [place] [address] [place] Phencyclidine Screen, Urine Negative Normal Negative [facility] Comment on above: Order Comment: Comme nt s/s of acute impairment Result Comment: Thes e are unconfirmed results and should not be used for legal purposes. Drug Cut-Off Concentration: AMPH 1000 ng/mL ANNE 200 ng/mL SHEY 200 ng/mL COCM 300 ng/mL OP 300 ng/mL PCP 25 ng/mL PERFORMED BY: [facility] [address] [place] [address] PATHOLOGIST TANK OPERATOR MARQUITA LICONA M.D. Performed By: #### C UU, ADDONUAPLUS, OBUDS #### [facility] [address] Opiates [Presence] in Urine by Screen methodOrdered By: Hever Wallace on 08-12-2024 Opiates Screen Ql (U) Opiates [Presence] in Urine by Screen method Negative [facility] Opiates Screen Ql (U) Negative Negative [facility] Phencyclidine Screen Ql (U)O rdered By: Hever Wallace on 08-12-2024 Phencyclidine Ql (U) Phencyclidine [Presence] in Urine by Screen method Negative [facility] Comment on above: These are unconfirme d results and should not be used for legal purposes. Drug Cut-Off Concentration: AMPH 1000 ng/mL ANNE 200 ng/mL SHEY 200 ng/mL COCM 300 ng/mL OP 300 ng/mL PCP 25 ng/mL Phencyclidine Ql (U) Negative Negative [facility] Comment on above: These are unconfirme d results and should not be used for legal purposes. Drug Cut-Off Concentration: AMPH 1000 ng/mL ANNE 200 ng/mL SHEY 200 ng/mL COCM 300 ng/mL OP 300 ng/mL PCP 25 ng/mL Protein Test strip (U) [Mass /Vol]Ordered By: Hever Wallace on 08-12-2024 Protein (U) [Mass/Vol] Protein [Mass/volume] in Urine by Test strip High Negative [facility] Protein (U) [Mass/Vol] Trace mg/dL High Negative F [facility] Specific gravity Test strip (U) [Rel density]Ordered By: Hever Wallace on 05-27-2025 Specific gravity (U) [Rel density] Specific gravity of Urine by Test strip 1.001-1.030 [facility] Specific gravity (U) [Rel density] 1.019 1.001-1.030 [facility] Urinalysis complete panel (U )on 08-12-2024 Appearance (U) Cloudy Critically abnormal Clear [facility] BILIRUBIN,URINE Negative Negative [facility] Color (U) Light-Yellow Yellow [facility] Glucose Ql (U) Normal Normal [facility] Interpretation and review of laboratory results Abnormal [facility] Ketones Ql (U) Negative Negative [facility] Leukocyte esterase Test strip Ql (U) 3+ High Negative [facility] NITRITE,URINE Negative Negative [facility] OCCULT BLOOD,URINE Negative Negative [facility] pH (U) 5.5 [pH] 5.0 - 9.0 [facility] PROTEIN,URINE Trace High Negative [facility] SPECIFICY GRAVITY,URINE 1.019 1.00 1 - 1.030 [facility] UROBILINOGEN,URINE Normal Normal [facility] Comment c/o urinary symptoms or increased blood pressure Name Collection Type:: Clean-Voided Midstream [facility] Urine Cultureon 08-12-2024 Bacteria identified Cx [facility] (U) ORGANISM: Escherichia coli (O:ESCCOL) [place] Count 20,000 Aerobic ASHLEY Charge ([id number]) ----- SUSCEPTIBILITY ---- ORGANISM: O:ESCCOL ANTIBIOTIC INTERPRETATION ASHLEY Amikacin S <16 Amoxacillin/K Clavulanate S <8 Ampicillin R >16 Ampicillin/Sulbactam R >16 Aztreonam S <4 Cefazolin S 4 Cefepime S <2 Ceftazidime S <1 Ceftazidime/Avibacta m S 8 Ceftolozane/Tazobact am S <2 Ceftriaxone S <1 Cefuroxime S <4 Ciprofloxacin I 0.5 Ertapenem S <0.5 Gentamicin S <2 Levofloxacin S <0.5 Meropenem S <1 Meropenem/Vaborbacta m S <2 Nitrofurantoin S <32 Piperacillin/Tazobac colbert S <8 Tetracycline S <4 Tigecycline S <2 Tobramycin S <2 Trimethoprim/Sulfame thoxazole R >2 S = SUSCEPTIBLE I = INTERMEDIATE R = RESISTANT BLANK = DATA NOT AVAILABLE, OR DRUG NOT ADVISABLE OR TESTED R* = RESISTANCE DUE TO EXTENDED SPECTRUM BETA-LACTAMASES ESBL = EXTENDED SPECTRUM BETA-LACTAMASE TFG = THYMIDINE-DEPENDENT STRAIN LIZETTE = BETA-LACTAMASE POSITIVE IB = INDUCIBLE BETA-LACTAMASE. APPEARS IN PLACE OF 'S' WITH SPECIES KNOWN TO POSSESS INDUCIBLE BETA-LACTAMASES. POTENTIALLY THEY MAY BECOME RESISTANT TO ALL B-LACTAM DRUGS. PERFORMED BY: [place] [address] PATHOLOGIST TANK OPERATOR MARQUITA LICONA M.D. Normal [facility] Comment on above: Performed By: #### C KRISS GAMINO OBUDS #### [address] Urine cultureOrdered By: Filippo Wallace on 08-12-2024 Bacteria identified Cx Nom (U) Escherichia coli Abnormal [facility] Urobilinogen Test strip (U) [Mass/Vol]Ordered By: Hever Wallace on 08-12-2024 Urobilinogen (U) [Mass/Vol] Urobilinogen [Mass/volume] in Urine by Test strip Normal [facility] Urobilinogen (U) [Mass/Vol] Normal mg/dL Normal [facility] pH Test strip (U)Ordered By: Hever Wallace on 08-12-2024 pH (U) pH of Urine by Test strip 5.0-9.0 [facility] pH of Urine by Test stripOrd ered By: Hever Wallace on 08-12-2024 pH (U) 5.5 [pH] Normal 5.0-9.0 [facility] Comment on above: Order Comment: Comme nt c/o urinary symptoms or increased blood pressure Name Collection Type:: Clean-Voided Midstream Performed By: #### C KRISS GAMINO OBUDS #### [address] RECURRENT VAGINITIS (HTRX)on 08-06-2024 ATOPOBIUM VAGINAE 0 [facility] ATOPOBIUM VAGINAE Not detected [facility] BVAB 2,3 (BACTERIAL VAGINOSIS ASSOCIATED BACTERIA 2, 3); MOBILUNCUS SPP 0 [facility] BVAB 2,3 (BACTERIAL VAGINOSIS ASSOCIATED BACTERIA 2, 3); MOBILUNCUS SPP Not detected [facility] OLIVA ALBICANS, PARAPSILOSIS, TROPICALIS 0 [facility] OLIVA ALBICANS, PARAPSILOSIS, TROPICALIS Not detected [facility] OLIVA GLABRATA 0 [facility] OLIVA GLABRATA Not detected [facility] OLIVA KRUSEI 0 [facility] OLIVA KRUSEI Not detected [facility] CHLAMYDIA TRACHOMATIS 0 [facility] CHLAMYDIA TRACHOMATIS Not detected N [facility] ERMB, C; MEFA 27.476 Abnormal [facility] ERMB, C; MEFA Detected Abnormal [facility] GARDNERELLA VAGINALIS 29.072 Abnormal [facility] GARDNERELLA VAGINALIS Detected Abnormal [facility] Interpretation and review of laboratory results Abnormal [facility] MEGASPHAERA (TYPES 1, 2) 0 [facility] MEGASPHAERA (TYPES 1, 2) Not detected [facility] MYCOPLASMA GENITALIUM 0 [facility] MYCOPLASMA GENITALIUM Not detected N [facility] NEISSERIA GONORRHOEAE 0 [facility] NEISSERIA GONORRHOEAE Not detected N [facility] TET B, TET M 26.01 Abnormal [facility] TET B, TET M Detected Abnormal [facility] TRICHOMONAS VAGINALIS 0 [facility] TRICHOMONAS VAGINALIS Not detected N [facility] [facility] macro (dipstick) panel (U)on 08-05-2024 Bilirubin, UA Negative Negative - 4(70) +++ mg/dL [facility] Blood, UA Negative Negative - 50 Julius/mcL [facility] Clarity, UA Clear [facility] Color, UA Yellow [facility] Glucose, UA Negative Negative - 1999(110) ++++ mg/dL [facility] Interpretation and review of laboratory results Normal [facility] Ketones, UA Negative Negative - 160(16) ++++ mg/dL [facility] Leukocytes, UA Positive Negative - 500+++ Yeimi/mcL [facility] Comment on above: small Nitrite, UA Negative Negative - Positive [facility] pH, UA 7 5 - 9 [facility] Protein, UA Negative Negative - 1999(20) ++++ mg/dL [facility] Spec Grav, UA 1.02 1 - 1.03 [facility] Urobilinogen, UA 0.2 0.2 - 12 mg/dL [facility] Limitedon 07-28 US Limited Exam Date/Time: 07/27/2024 22:48 EDT Reason for Exam: r/o placental abruption;Other (please specify) Report IMPRESSION: SINGLE LIVE INTRAUTERINE CORRESPONDING TO APPROXIMATELY Composite Ultrasound Age: 16 weeks, 5 days. NO GROSS ABNORMALITY IDENTIFIED. US Limited: 07/27/2024 10:17 PM CLINICAL HISTORY: Concern for placental abruption. Trauma to the abdomen. Gestational Age by LMP: 17 weeks, 0 days Composite Ultrasound Age: 16 weeks, 5 days 17w0d (weeks/days) MARIA ISABEL of 01/04/2025. COMPARISON: 05/28/2024. Transabdominal ultrasound of the gravid uterus was performed. FINDINGS: A single live intrauterine is noted in breech position. cardiac activity is measured at 176 bpm. The cervix is grossly unremarkable, measuring around 3.6 cm in length, but not well assessed transabdominally. PLACENTA: Located posteriorly, otherwise grossly unremarkable The amniotic fluid volume appears grossly within normal limits for gestation. MEASUREMENTS: The following measurements were obtained: * Biparietal Diameter: 3.2 cm with the Growth Percentile Rank: 7.0 Percent * Head Circumference: 13.7 cm with the Growth Percentile Rank: 44.0 Percent * Abdominal Circumference: 10.7 cm with the Growth Percentile Rank: 35.0 Percent * Femur Length: 2.3 cm with the Growth Percentile Rank: 43.0 Percent * which corresponds to Composite Ultrasound Age: 16 weeks, 5 days. ESTIMATED WEIGHT: Estimated Weight: 168.9 (grams) Estimated Weight: 0lbs 6.0ozs (lbs/oz) Report EFW growth percentile rank: 30 (Percent) EFW LMP Percentile: 30.0 (Percent) A full anatomy survey was not performed. Tech Comments: MARIA ISABEL 01/04/25 GA 17w0d Patient History Hx - Transabdominal Ultrasound Performed Placenta Location posterior Positioning Breech Ordering Provider: Earline Bond FINAL REPORT Dictated: 07/28/2024 10:01 am Bhavesh Hooper MD Signed (Electronic Signature): 07/28/2024 10:01 am Signed by: Bhavesh Hooper MD Transcribed by: ANCELMO Technologist: HOLLIS [facility] ED Clinical Summaryon 2024 ED Clinical Summary ED Clinical Summary [address] [address] ED Clinical Summary Person Information Name: FABRIZIO CARBALLO [facility] Age: 24 Years : 2000 Sex: Female Language: Montserratian PCP: Nicolás MSN, CELLULAR TOWER CLIMBER-HYDROLOGIC ENGINEER, Jewell Alcala Marital Status: Single Visit Id: Visit Reason: Medical problem - minor; Abdominal pain - ; 17 WKS PREG, ABD CRAMPING Speciality: Acuity: 3 Enc Type: Emergency Med Service: Emergency Arrival: 07/27/2024 21:26:11 Discharge: 07/27/2024 22:56:55 LOS: 000 01:30 Checkin: 07/27/2024 21:26:11 Checkout: 07/27/2024 22:56:55 Dispo Type: Home (Routine DC) EVENTS: Event Name Event Status Request Date/Time Start Date/Time Complete Date/Time Arrive Complete 07/27/2024 21:26:11 07/27/2024 21:26:11 07/27/2024 21:26:11 Document Home Meds Request 07/27/2024 21:26:11 Triage Complete 07/27/2024 21:26:11 07/27/2024 21:32:11 07/27/2024 21:32:11 Bed Assign Complete 07/27/2024 21:29:38 07/27/2024 21:29:38 07/27/2024 21:29:38 Dr Exam Complete 07/27/2024 21:29:38 07/27/2024 21:30:46 07/27/2024 21:30:46 RN Exam Complete 07/27/2024 21:29:38 07/27/2024 21:40:35 07/27/2024 21:40:35 Registration Complete 07/27/2024 21:29:55 07/27/2024 21:29:55 07/27/2024 21:29:55 Reg Complete Request 07/27/2024 21:29:55 Reg Bed Request Complete 07/27/2024 21:29:55 07/27/2024 21:29:55 07/27/2024 21:29:55 Registration Complete 07/27/2024 21:30:46 07/27/2024 21:31:49 07/27/2024 21:31:49 Isolation Screening Request 07/27/2024 21:32:12 Pending Labs Complete 07/27/2024 21:33:32 07/27/2024 22:15:39 Meds Admin Complete 07/27/2024 22:01:20 07/27/2024 22:15:41 US Cancel 07/27/2024 22:01:20 07/27/2024 22:16:50 US Complete 07/27/2024 22:16:49 07/27/2024 22:17:12 07/27/2024 22:48:55 Discharge Complete 07/27/2024 22:46:32 07/27/2024 22:57:00 07/27/2024 22:57:00 Transfer Complete 07/27/2024 22:57:00 07/27/2024 22:57:00 07/27/2024 22:57:00 ADDRESS: [address] [place] [address] Raf[place] [id number] [facility] DOC NOTES: MEDICAL INFORMATION: Prescriptions Given: Medications to Continue with No Changes Other Medications nystatin topical (nystatin Top 100,000 units/g Crm 15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 trimester gestational sac is present within the central aspect of the uterine body/fundus, with an approximately 2.2 x 1.5 x 1.4 cm ill-defined subchorionic hemorrhage inferiorly.. [place] Rump Length: 2.1 cm, which corresponds Composite Ultrasound Age: 8 weeks, 6 days, +/- 1 week. The estimated date of delivery by measurements is: MARIA ISABEL from average ultrasound age: 1001/01/2025. The MARIA ISABEL from LMP: 01/11/2025. cardiac activity measures approximately 170 bpm, without visualized arrhythmia. There is no significant free pelvic fluid, or other findings of concern identified. Both ovaries appear within normal limits. Equivalent blood flow is demonstrated on Doppler analysis. The uterus measurements and an estimated volume are: 15 x 8.4 x 5.9 cm, 391 mL Report The right ovary measurements and estimated volume are: Right Ovary Length: 3.5 cm Right Ovary Width: 2.8 cm Right Ovary Height: 3.1 cm Right Ovary Volume: 16.1 cm3 The left ovary measurements and estimated volume are: Left Ovary Length: 3.7 cm Left Ovary Width: 2.2 cm Left Ovary Height: 4.0 cm Left Ovary Volume: 16.7 cm3 Technical Comments: LMP : 03/28/24 4 Para 3 SAB 0 - Transabdominal Ultrasound Performed FHR (bpm) 170 [place] Rump Length (in cm) Size = Dates Ordering Provider: Charlie Bowman FINAL REPORT Dictated: 05/28/2024 6:04 pm Girish Edmond MD Signed (Electronic Signature): 05/28/2024 6:04 pm Signed by: Girish Edmond MD Transcribed by: ANCELMO Technologist: ADELE Normal [facility] PREG QUANT HCGon 025 HCG QUANTITATIVE 52352 mIU/mL [facility] Comment on above: 5-50 0.2-1 WEEK 50-500 1-2 WEEKS 100-5,000 2-3 WEEKS 500-10,000 3-4 WEEKS 1,000-50,000 4-5 WEEKS 10,000-100,000 5-6 WEEKS 15,000-200,000 6-8 WEEKS 10,000-100,000 2-3 [facility] PREG QUANT HCGon 025 HCG QUANTITATIVE 55195 mIU/mL [facility] Comment on above: 5-50 0.2-1 WEEK 50-500 1-2 WEEKS 100-5,000 2-3 WEEKS 500-10,000 3-4 WEEKS 1,000-50,000 4-5 WEEKS 10,000-100,000 5-6 WEEKS 15,000-200,000 6-8 WEEKS 10,000-100,000 2-3 [facility] .HPV Genotypes 16/18,45on HPV 16 DNA Probe+sig amp Ql (Cvx) Negative Invalid Interpretation Code Negative [facility] Comment on above: Performed By: #### 3 [id number] #### [facility] [address] [place] [address] HPV 18+45 E6+E7 mRNA ELYSIA+probe Ql (Cvx) Negative Invalid Interpretation Code Negative [facility] Comment on above: Result Comment: Perf ormed at: =[facility] [address] [facility] [place] [id number] MD Irving Knott Performed By: #### 3 [id number] #### [facility] [address] [place] [id number] .HPV, Aptima High 16/18,45on 05-12-2024 HPV 16+18+31+33+35+39+45+51 +52+56+58+59+66+68 DNA Probe+sig amp Ql (Cvx) Positive Abnormal Negative [facility] Comment on above: Result Comment: This nucleic acid amplification test detects fourteen high-risk HPV types (16,18,31,33,35,39,45,51,52,56,58,59,66,68) without differentiation. Performed at: = [facility] [place] [id number] MD Irving Knott Performed By: #### 3 [id number] #### [facility] [address] [place] [address] PAP [id number] 05-12-2024 Cytology report Cyto stain Doc (Cvx/Vag) Note Abnormal [facility] Comment on above: Result Comment: TEST S RESULT FLAG UNITS REF RANGE LAB Clinician Provided Cytology Information Source.............Cervix No. of containers..01 ThinPrep Vial DIAGNOSIS: [A] 01 EPITHELIAL CELL ABNORMALITY. ATYPICAL SQUAMOUS CELLS OF UNDETERMINED SIGNIFICANCE (ASC-US). Recommendation: [A] 01 Suggest follow up as clinically appropriate. Specimen adequacy: 01 Satisfactory for evaluation. No endocervical component is identified. Performed by: Yun Sanchez, Form Stripper (ASCP) Electronically si... 01 Paige Yates MD, Pathologist . 01 Pathologist ICD10: 01 R87.610 Note: Note 01 The Pap smear is a screening test designed to aid in the detection of premalignant and malignant conditions of the uterine cervix. It is not a diagnostic procedure and should not be used as the sole means of detecting cervical cancer. Both false-positive and false-negative reports do occur. Test Methodology: Note 01 This liquid based ThinPrep(R) pap test was screened with the use of an image guided system. . 01 See below for HPV testing results. FLAG LEGEND: L-Low Normal,H-High Normal,LL-Alert Low,HH-Alert High <-Panic Low,>-Panic High,A-Abnormal,AA-Critical Abnormal Performed at: [address] [phone] Hedy Villatoro MD, Performed at: [facility] [id number] MD Irving Knott Performed By: #### 3 [id number] #### [facility] [address] [place] [address] Physician Cb Bazzi 025 Pathologist review Mikael (Unsp spec) [Interp] Note Invalid Interpretation Code [facility] Comment on above: Result Comment: TEST S RESULT FLAG UNITS REF RANGE LAB Physician Read Pap Note 01 Performed FLAG LEGEND: L-Low Normal,H-High Normal,LL-Alert Low,HH-Alert High <-Panic Low,>-Panic High,A-Abnormal,AA-Critical Abnormal Performed at: [address] [phone] Hedy Villatoro MD, Performed at: [facility] [id number] MD Irving Knott Performed By: #### 3 [id number] #### [facility] [address] [place] [address] C Urineon 05-07-2024 Bacteria identified Cx Nom (U) Microbiology PROCEDURE: Urine Culture [R1] SOURCE: U CleanCatch BODY SITE: COLLECTED DATE/TIME: 05/05/2024 13:40 EST RECEIVED DATE/TIME: 05/05/2024 17:22 EST START DATE/TIME: 05/05/2024 17:22 EST FREE TEXT SOURCE: Lester SANDRA, Kwan Batista MD, Kwan Conner FINAL REPORTS Final Report [] Verified Date/Time: 05/07/2024 08:54 EST 2,000 cfu/ml Mixed skin contaminants Performing Locations R1: This test was performed at: [facility], [address] [place] [address], [phone] , , Normal [facility] Comment on above: Performed By: #### 2 [id number] #### [facility] [address] [place], [place] [id number] PAP [id number] 05-05-2024 Collection Technique BRUSH-SPATULA Normal [facility] Comment on above: Performed By: #### 3 [id number] #### [facility] [address] [place] [address] Gynecological Body Site CERVIX Normal [facility] Comment on above: Performed By: #### 3 [id number] #### [facility] [address] [place] [address] Choriogonadotropin.beta subu nit [Units/volume] in Serum or PlasmaOrdered By: Andrey Arthur on 04-29-2024 HCG.beta subunit Qn Choriogonadotropin.b eta subunit [Units/volume] in Serum or Plasma [facility] Comment on above: Approximate Approxim ate hCG Gestational Age Range (mIU/ml) (weeks)0.2-1 5-50 1-2 50-500 2-3 100-5,000 3-4 500-10,000 4-5 1,000-50,000 5-6 10,000-100,000 6-8 15,000-200,000 8-12 10,000-100,000 HCG,Quantitativeon HCG,Quantitative 139.86 m[iU]/mL Normal [facility] Comment on above: Result Comment: Appr oximate Approximate hCG Gestational Age Range (mIU/ml) (weeks) 0.2-1 5-50 1-2 50-500 2-3 100-5,000 3-4 500-10,000 4-5 1,000-50,000 5-6 10,000-100,000 6-8 15,000-200,000 8-12 10,000-100,000 PERFORMED BY: [place] [address] PATHOLOGIST TANK OPERATOR MARY KATE GU M.D. Performed By: #### H CGQNT #### [facility] [address] [place] [address] Urine Cultureon 03-15-2024 Bacteria identified Cx Nom (U) No Growth 2 Days PERFORMED BY: [place] [address] PATHOLOGIST TANK OPERATOR MARY KATE GU M.D. Normal [facility] Comment on above: Performed By: #### C UU #### [facility] [address] [place] [address] Urine cultureOrdered By: Herminio Clemente on 03-15-2024 Bacteria identified Cx Nom (U) Urine culture [facility] Interdisciplinary Note - Soc ial Workeron 03-03-2024 Interdisciplinary Note - Hat Brim Curler Interdisciplinary Note - Hat Brim Curler Consult for positive depression screen received. SW attempted to contact patient to discuss the results of her screen, however the number on file is not in service. Normal [facility] Nonvisit Note - PTon 024 Nonvisit Note - PT Nonvisit Note - PT Chart reviewed with eval prepped for scheduled eval. KK Normal [facility] Ambulatory Visit Summaryon 0 10-09-2023 Ambulatory Visit Summary Ambulatory Visit Summary FABRIZIO CARBALLO :2000 Visit Date:10/09/2023 Ambulatory Visit Instructions Your Diagnosis Anterolisthesis of lumbar spine Low back pain Depression ROBERT (generalized anxiety disorder) Class 1 obesity due to excess calories in adult BMI 30.0-30.9,adult Your Care Team Attending Physician - Nicolás MSN, CELLULAR TOWER CLIMBER-Jewell LUCIANO Primary Care Physician - Nicolás MINA, CELLULAR TOWER CLIMBER-Jewell LUCIANO This Is Your Medications List cephalexin (cephalexin [...] Following Appointments Follow Up with Nicolás MINA, CELLULAR TOWER CLIMBER-HYDROLOGIC ENGINEER, Jewell [place] When: In 1 month Where: [address] [place] [phone] Medications What How Much When Instructions New duloxetine (Cymbalta 20 mg oral delayed release capsule) 1 Capsules By Mouth 2 times a day Duration: 30 Days Pickup at [facility] New predniSONE (predniSONE 10 mg Tab) 10 Milligram By Mouth As Directed Duration: 8 Days 4 QDx2 days; 3 QDx2 d; 2 QDx2 d; 1 QDx2d; d/ c Pickup at [facility] Unchanged cephalexin (cephalexin 500 mg Cap) 1 Capsules By Mouth Every 12 hours Duration: 7 Days Unchanged naproxen (naproxen 500 mg Tab) 1 Tablets By Mouth 2 times a day Duration: 10 Days Pickup at [facility] Pharmacy Information [facility]: [address] [place] [id number] [phone] Allergies Abilify (Hallucinations) meloxicam (Constipation) Vicodin (Rash) [...] breathing. To (more content not included)... Normal [facility] C Urineon 10-09-2023 Bacteria identified Cx [...] Locations R1: This test was performed at: [facility], [address] [place] [address], [facility] , , Normal [facility] Comment on above: Performed By: #### 2 [id number] #### [facility] [address] [place] [address] Family Medicine Office/Clini c Noteon 10-09-2023 Family [...] DEXA: NA Labs: 10/06/2023 List of Providers: IS TECHNICIAN: Dr Arthur counseling: Family life counseling [...] other medications. She was referred to a microbial specialist but was unable to secure an [...] an x-ray and a CT scan at [facility] yesterday, 10/08/2023. She has not undergone [...] lumbar region) An x-ray was performed at [facility], revealing grade 1 anterolisthesis of the lumbar spine. Muscle relaxants and naproxen were administered. Additionally, a urinary tract infection was identified, fo (more content not included)... Normal [facility] Comment on above: Result Comment: Elec tronically Signed By: Nicolás MINA, CELLULAR TOWER CLIMBER-HYDROLOGIC ENGINEER, Jewell [place]\.br\Date and Time Signed: 10/09/23 19:19 EDT\.br\Electronically Co-Signed By: Joann Mullins\.br\Date and Time Co-Signed: 10/09/23 13:48 EDT ED Note-Physicianon 10-07-19 ED Note-Physician ED Note-Physician Basic Information Time Seen: Colby CROSS, Charlie Kaye 10/06/2023 19:26 Chief Complaint pt states back [...] and symmetry. No ataxia with finger-nose or yyjz-hx-kynp. Intact sensation of bilateral upper and lower [...] naproxen. Did provide her with Dr. Perea microbial specialist for further evaluation of her spondylolisthesis. [...] day(s), # 14 cap(s), Refills(s) 0, Pharmacy: [facility], 165.1, cm, 10/06/23 19:19:00 EDT, Height/Length [...] Stop date (more content not included)... Normal [facility] Comment on above: Result Comment: Elec [...] mGy = na DAP = na Normal [facility] XR Spine Lumbosacral 2 or 3 [...] mGy = na DAP = na Normal [facility] BMPon 10-06-2023 Creatinine [Mass/Vol] 0.8 mg/dL Normal 0.5-1.3 [facility] Comment on above: Performed By: #### 2 [id number] #### [facility] [address] [place] [address] Glucose [Mass/Vol] 82 mg/dL Normal 55-[address] [facility] Comment on above: Performed By: #### 2 [id number] #### [facility] [address] [place] [address] Urea nitrogen [Mass/Vol] 10 mg/dL Normal 5-[address] [facility] Comment on above: Performed By: #### 2 [id number] #### [facility] [address] [place] [address] Urea nitrogen/Creatinine [Mass ratio] 12 No Units Normal 10-[address] [facility] Comment on above: Performed By: #### 2 [id number] #### [facility] [address] [place] [address] Anion gap [Moles/Vol] 11 mmol/L Normal 6-16 [facility] Comment on above: Performed By: #### 2 [id number] #### [facility] [address] [place] [address] Calcium [Mass/Vol] 9.7 mg/dL Normal 8.9-11.[address] [facility] Comment on above: Performed By: #### 2 [id number] #### [facility] [address] [place] [address] Chloride [Moles/Vol] 106 mmol/L Normal 101-111 [facility] Comment on above: Performed By: #### 2 [id number] #### [facility] [address] [place] [address] CO2 [Moles/Vol] 25 mmol/L Normal 21-31 [facility] Comment on above: Performed By: #### 2 [id number] #### [facility] [address] [place] [address] Potassium [Moles/Vol] 3.8 mmol/L Normal 3.5-5.3 [facility] Comment on above: Performed By: #### 2 [id number] #### [facility] [address] [place] [address] Sodium [Moles/Vol] 138 mmol/L Normal 135-[address] [facility] Comment on above: Performed By: #### 2 [id number] #### [facility] [address] [place] [address] CBC w/ Auto Diffon 4 Basophils/100 WBC (Bld) 0.7 % Normal 0.0-2.0 [facility] Comment on above: Performed By: #### 2 [id number] #### [facility] [address] [place] [address] Basophils/Leukocytes Auto (Bld) [Pure # fraction] 0.0 E9/L Normal 0.0-0.[address] [facility] Comment on above: Performed By: #### 2 [id number] #### [facility] [address] [place] [address] Eosinophils (Bld) [#/Vol] 0.2 E9/L Normal 0.0-0.[address] [facility] Comment on above: Performed By: #### 2 [id number] #### [facility] [address] [place] [address] Eosinophils/100 WBC (Bld) 3.2 % Normal 0.0-8.[address] [facility] Comment on above: Performed By: #### 2 [id number] #### [facility] [address] [place] [address] Erythrocyte distribution width (RBC) [Ratio] 17.0 % High 10.9-14.[address] [facility] Comment on above: Performed By: #### 2 [id number] #### [facility] [address] [place] [address] Hematocrit (Bld) [Volume fraction] 33.9 % Low 34.0-46.[address] [facility] Comment on above: Performed By: #### 2 [id number] #### [facility] [address] [place] [address] Hemoglobin (Bld) [Mass/Vol] 11.1 g/dL Low 12.0-16.[address] [facility] Comment on above: Performed By: #### 2 [id number] #### [facility] [address] [place] [address] Lymphocytes (Bld) [#/Vol] 1.5 E9/L Normal 1.0-4.[address] [facility] Comment on above: Performed By: #### 2 [id number] #### [facility] [address] [place] [address] Lymphocytes/100 WBC (Bld) 23.4 % Normal 14.0-50.[address] [facility] Comment on above: Performed By: #### 2 [id number] #### [facility] [address] [place] [address] MCH (RBC) [Entitic mass] 25.0 pg Low 27.0-34.[address] [facility] Comment on above: Performed By: #### 2 [id number] #### [facility] [address] [place] [address] MCHC (RBC) [Mass/Vol] 32.8 g/dL Normal 31.4-36.0 [facility] Comment on above: Performed By: #### 2 [id number] #### [facility] [address] [place] [address] MCV (RBC) [Entitic vol] 76.3 fL Low 80.0-100.0 [facility] Comment on above: Performed By: #### 2 [id number] #### [facility] [address] [place] [address] Monocytes (Bld) [#/Vol] 0.7 E9/L Normal 0.2-1.0 [facility] Comment on above: Performed By: #### 2 [id number] #### [facility] [address] [place] [address] Neutrophils (Bld) [#/Vol] 4.0 E9/L Normal 2.0-7.[address] [facility] Comment on above: Performed By: #### 2 [id number] #### [facility] [address] [place] [address] Neutrophils/100 WBC (Bld) 62.3 % Normal 36.0-75.[address] [facility] Comment on above: Performed By: #### 2 [id number] #### [facility] [address] [place] [address] Platelet 291.0 E9/L Normal 150.0-500.[address] [facility] Comment on above: Performed By: #### 2 [id number] #### [facility] [address] [place] [address] Platelet mean volume (Bld) [Entitic vol] 8.8 fL Normal 6.4-10.[address] [facility] Comment on above: Performed By: #### 2 [id number] #### [facility] [address] [place] [address] RBC (Bld) [#/Vol] 4.4 E12/L Normal 4.3-5.[address] [facility] Comment on above: Performed By: #### 2 [id number] #### [facility] [address] [place] [address] WBC corrected for nucl RBC Auto (Bld) [#/Vol] 6.5 E9/L Normal 4.0-11.0 [facility] Comment on above: Performed By: #### 2 [id number] #### [facility] [address] [place] [address] CHEMISTRYOrdered By: SYSTEM SYSTEM on 07-20-2024 Troponin HS 4.70 pg/mL Low 10.10 - 27.10 pg/mL [facility] Comment on above: Interpretive Data: T he 95% CI (Confidence Interval) PPV (Positive Predictive Value) for myocardial infarction in females is 38 pg/mL, in males 51 pg/mL. The results should be used in conjunction with clinical conditions of myocardial infarction. (Access High Sensitivity Troponin I Instructions For Use, [employer], October 2017) Anion gap [Moles/Vol] 11 mmol/L [...] High Sensitivity Troponin I Instructions For Use, [employer]notice, October 2017) Urea nitrogen [Mass/Vol] 10 mg/dL Normal 5 - 21 mg/dL [facility] Urea nitrogen/Creatinine [Mass ratio] 12 mg/mg Normal 10 - 20 [facility] COAGULATIONOrdered By: Olive on Kaila on 10-06-2023 aPTT Coag (PPP) [Time] 31.0 s Normal 25.1 - 36.5 second(s) [facility] Auto [facility] Comment on above: Interpretive Data: P beckymeter 15 days - 4 weeks 1 - [...] the same coagulation reagent and instrumentation as [facility]. Currently there are no coagulation studies available worldwide for children to 14 days, and no normal ranges. Heparin therapeutic range (represented by Anti-Factor Xa activity of 0.2 - 0.4 U/mL) corresponds to PTT of 56.6 - 109.0 sec. Fibrin D-dimer FEU (PPP) [Mass/Vol] 301 ng/mL FEU Normal 215 - 500 ng/mL FEU [facility] Comment on above: Interpretive Data: [...] [Relative time] 1.04 {INR} Invalid Interpretation Code [facility] Comment on above: Interpretive Data: I NR results are specifically intended to assess patients stabilized on long-term Anticoagulation therapy suggested INR s Less Intensive Anticoagulation 2.0 3.0 Conventional Range 3.0 4.5 PT Coag (PPP) [Time] 11.7 s Normal 9.4 - 1 2.5 second(s) [facility] Comment on above: Interpretive Data: [...] the same coagulation reagent and instrumentation as [facility]. Currently there are no coagulation studies available worldwide for children to 14 days, and no normal ranges. D-Dimeron 10-06-2023 Fibrin D-dimer FEU (PPP) [Mass/Vol] 301 CD:[id number] Normal 215-[address] [facility] Comment on above: Result Comment: This [...] infections Liver cirrhosis Performed By: #### 2 [id number] #### [facility] [address] [place] [address] ED Clinical Summaryon 2023 ED Clinical Summary ED Clinical Summary [address] [address] ED Clinical Summary Person Information Name: FABRIZIO CARBALLO [facility] Age: 23 Years : 2000 Sex: Female Language: Montserratian PCP: Nicolás MINA, CELLULAR TOWER CLIMBER-HYDROLOGIC ENGINEER, Jewell Alcala Marital Status: Single Phone: [phone] Visit Id: Visit Reason: Back pain; Chest [...] 10/06/2023 23:56:56 10/06/2023 23:56:56 10/06/2023 23:56:56 ADDRESS: [address] [place] [phone] PHYS DOC NOTES: MEDICAL INFORMATION: Prescriptions Given: New Medications [facility], [address] [facility] [address] [place], [place] [phone], [phone] cephalexin (cephalexin 500 mg Cap) 1 Capsules [...] Follow up: With: Address: When: Hever Perea [address], [address] [place] [phone] [employer] (1) In 3 days 10/09/2023 With: Address: When: Jewell Monozn [address] [place], [place] [phone] [employer] (1) In 3 days 10/09/2023 DIAGNOSIS: Headache; Low back pain; Spondylolisthesis, grade 1; Spondylolysis; UTI (urinary tract infection) Normal [facility] ED Patient Summaryon 024 ED Patient Summary ED Patient Summary [address] [address] Patient Discharge Instructions Person Information Name: FABRIZIO CARBALLO Age: 23 Years Arrival Date: 10/06/2023 19:10:33 Discharge Diagnosis: Headache; Low back pain; Spondylolisthesis, grade 1; Spondylolysis; UTI (urinary tract infection) Primary Care Physician: Nicolás MSN, CELLULAR TOWER CLIMBER-HYDROLOGIC ENGINEER, Jewell Alcala Provider Information Primary Provider: Andrea Faustin DO Advanced Far[employer] Dealer:Colby CROSS, Charlie Kaye The exam and treatment you received in the Emergency Department were for an urgent problem and are not intended as complete care. It is important that you follow up with a doctor, nurse practitioner, or physician?s medical library assistant for ongoing care. If your symptoms [...] Follow-up Instructions: With: Address: When: Hever Perea [address] [address], [address] [place] [phone] [employer] (1) In 3 days 10/09/2023 With: Address: When: Jewell Nicolás [address] [place], [place] [phone] [employer] (1) In 3 days 10/09/2023 In the event that this physician does not participate in your insurance network, please consult with your insurance company to find a nearby participating provider. Patient Education Materials: Tension Headache, Adult; Urinary Tract Infection, Adult; Spondylolisthesis A MESSAGE TO ALL PATIENTS REGARDING OPIOIDS PRESCRIPTION OPIOIDS: WHAT YOU NEED TO KNOW Prescription opioids can be used to help relieve jvwhzfrr-xn-yprapo pain and are often prescribed following a [...] Administration (www.fda.gov/Drugs (more content not included)... Normal [facility] HEMATOLOGYOrdered By: SYSTEM SYSTEM on 10-06-2023 [...] Coag (PPP) [Time] 31.0 second(s) Normal 25.1-36.[address] [facility] Comment on above: Result Comment: Para meter 15 days - 4 weeks 1 - 5 months 6 - 11 months 1 - 5 years 6 - 10 years 11 - 17 years PTT Mean: 35.4 (27.6-45.6) Mean: 33.5 (24.8-40.7) Mean: 32.4 (25.1-40.7) Mean: 31.6 (24.0-39.2) Mean: 31.6 (26.9-38.7) Mean: 31.0 (24.6-38.4) Pediatric Reference ranges were obtained from a study by rebecca Vasquez. prepared from 1437 samples obtained at 7 different centers using the same coagulation reagent and instrumentation as [facility]. Currently there are no coagulation studies available worldwide for children to 14 days, and no normal ranges. Heparin therapeutic range (represented by Anti-Factor Xa activity of 0.2 - 0.4 U/mL) corresponds to PTT of 56.6 - 109.0 sec. Performed By: #### 1 [id number] #### [facility] [address] [place] [address] INR Coag (PPP) [Relative time] 1.04 {INR} Invalid Interpretation Code [facility] Comment on above: Result Comment: INR results are specifically intended to assess patients stabilized on long-term Anticoagulation therapy suggested INR?s ?Less Intensive Anticoagulation? 2.0 ? 3.0 Conventional Range 3.0 ? 4.5 Performed By: #### 1 [id number] #### [facility] [address] [place] [address] PT Coag (PPP) [Time] 11.7 second(s) Normal 9.4-12.[address] [facility] Comment on above: Result Comment: 15 d ays - 4 weeks 1 - 5 months 6 -11 months 1-5 years 6-10 years 11 -17 years Mean: 11.2 (9.5-12.6) Mean: 11.0 (9.7-12.8) Mean: 11.0 (9.8-13.0) Mean: 11.3 (9.9-13.4) Mean: 11.7 (10.0-14.6) Mean: 11.8 (10.0 - 14.1) Pediatric Reference ranges were obtained from a study by lola Vasquez prepared from 1437 samples obtained at 7 different centers using the same coagulation reagent and instrumentation as [facility]. Currently there are no coagulation studies available worldwide for children to 14 days, and no normal ranges. Performed By: #### 1 [id number] #### [facility] [address] [place] [address] SEROLOGYOrdered By: Luis Mcfarlane on 10-06-2023 HCG.beta subunit (U) [Moles/Vol] Negative Normal [facility] Man Sero Troponin 0 Hr.on 10-06-2023 Troponin HS 4.60 pg/mL Low 10.10-27.[address] [facility] Comment on above: Result Comment: The 95% CI (Confidence Interval) PPV (Positive Predictive Value) for myocardial infarction in females is 38 pg/mL, in males 51 pg/mL. The results should be used in conjunction with clinical conditions of myocardial infarction. (Access High Sensitivity Troponin I Instructions For Use, K[employer], October 2017) Performed By: #### 1 [id number] #### [facility] [address] [place] [address] Troponin 1 Hr.on 10-06-2023 Troponin HS 4.70 pg/mL Low 10.10-27.[address] [facility] Comment on above: Order Comment: due a t 2019 Result Comment: The 95% CI (Confidence Interval) PPV (Positive Predictive Value) for myocardial infarction in females is 38 pg/mL, in males 51 pg/mL. The results should be used in conjunction with clinical conditions of myocardial infarction. (Access High Sensitivity Troponin I Instructions For Use, K[employer], October 2017) Performed By: #### 1 [id number] #### [facility] [address] [place] [address] U BetaHcg Qualon 10-06-2023 HCG.beta subunit (U) [Moles/Vol] Negative Normal [facility] Comment on above: Performed By: #### 2 [id number] #### [facility] [address] [place] [address] UA with Cult Rflxon 10-06-19 24 Bilirubin Ql (U) Negative Normal Negative [facility] Comment on above: Performed By: #### 4 [id number] #### [facility] [address] [place] [address] Clarity (U) Ex.Turbid Abnormal Clear [facility] Comment on above: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 distribution width (RBC) [Ratio] 16.6 % High 10.9-14.[address] [facility] Comment on above: Performed By: #### 2 582705, 3599770, 6880213, 26066779, 2460476 #### [facility] [address] [place] [address] Hematocrit (Bld) [Volume fraction] 32.0 % Low 34.0-46.[address] [facility] Comment on above: Performed By: #### 2 841508, 7486491, 8633598, 59870061, 2343942 #### [facility] [address] [place] [address] Hemoglobin (Bld) [Mass/Vol] 9.9 g/dL Low 12.0-16.[address] [facility] Comment on above: Performed By: #### 2 418354, 3103788, 2580664, 81204482, 6375703 #### [facility] [address] [place] [address] Lymph Absolute 1.3 E9/L Normal 1.0-4.0 [facility] Comment on above: Performed By: #### 2 487103, 7308052, 3324855, 97516316, 9896670 #### [facility] [address] [place] [address] Lymphocytes/100 WBC (Bld) 16.1 % Normal 14.0-50.[address] [facility] Comment on above: Performed By: #### 2 766271, 2369144, 0704954, 90063614, 9940793 #### [facility] [address] [place] [address] MCH (RBC) [Entitic mass] 22.8 pg Low 27.0-34.[address] [facility] Comment on above: Performed By: #### 2 304537, 3232297, 3566785, 54366377, 0532690 #### [facility] [address] [place], [place] [address] MCHC (RBC) [Mass/Vol] 31.4 g/dL Normal 31.4-36.0 [facility] Comment on above: Performed By: #### 2 864009, 9150026, 0590068, 08688912, 0960756 #### [facility] [address] [place], [place] [address] MCV (RBC) [Entitic vol] 72.7 fL Low 80.0-100.0 [facility] Comment on above: Performed By: #### 2 296098, 0606526, 4424001, 32113187, 6417967 #### [facility] [address] [place], [place] [address] Monona Absolute 0.6 E9/L Normal 0.2-1.0 [facility] Comment on above: Performed By: #### 2 611324, 9793154, 0858223, 12266864, 8856459 #### [facility] [address] [place], [place] [address] Monocytes/100 WBC (Bld) 6.8 % Normal 4.0-14.0 [facility] Comment on above: Performed By: #### 2 449128, 2001499, 9231265, 64381799, 6329224 #### [facility] [address] [place], [place] [address] Neutro Absolute 6.2 E9/L Normal 2.0-7.5 [facility] Comment on above: Performed By: #### 2 014096, 1570526, 5593830, 16810393, 6724658 #### [facility] [address] [place] [address] Neutro Auto 76.8 % High 36.0-75.[address] [facility] Comment on above: Performed By: #### 2 012522, 0715323, 8829179, 52154572, 8821101 #### [facility] [address] [place] [address] Platelet 247.0 E9/L Normal 150.0-500.[address] [facility] Comment on above: Performed By: #### 2 542796, 7155763, 1542754, 74155146, 3244525 #### [facility] [address] [place] [address] Platelet mean volume (Bld) [Entitic vol] 8.8 fL Normal 6.4-10.[address] [facility] Comment on above: Performed By: #### 2 333890, 2667785, 8008064, 33276853, 1395022 #### [facility] [address] [place] [address] RBC 4.3 E12/L Normal 4.3-5.[address] [facility] Comment on above: Performed By: #### 2 171073, 8070045, 2697750, 50967461, 4523948 #### [facility] [address] [place] [address] WBC 8.1 E9/L Normal 4.0-11.[address] [facility] Comment on above: Performed By: #### 2 809610, 4519381, 5542835, 79657046, 4469582 #### [facility] [address] [place] [address] CHEMISTRYOrdered By: SYSTEM SYSTEM on 05-09-2023 Anion [...] 91 mg/dL Normal 55 - 99 mg/dL [facility] POC Subsection Comment on above: Result Comment: Neeta harris RN/ POC Device SN [id number] 1 Invalid Interpretation Code [facility] POC Subsection POC User ID [id number] 1 Invalid Interpretation Code [facility] POC Subsection POC Username MARQUITA SILVEIRA Invalid Interpretation Code [facility] POC Subsection CT Abdomen/Pelvis w/ Contras ton 05-09-2023 CT Abdomen/Pelvis w/ Contrast Exam Date/Time: 05/09/2023 00:01 EST Reason for Exam: RLQ abdominal pain;Other (please specify) Report [facility] [phone] IMPRESSION: Findings concerning for early acute appendicitis [...] 300 Contrast amount in ml's: [address] [facility] Capillary Glucose POCon 04-20 Glucose [Mass/Vol] 91 mg/dL Normal 55-[address] [facility] Comment on above: Result Comment: Neeta harris RN/ Performed By: #### 1 6698140, 3443181209, 916242367, 6196166950 #### [facility] [address] [place] [address] Consent for Procedure/Surger yon 05-09-2023 Consent for Procedure/Surgery [id number] #[id number] Normal [facility] Discharge Note-Nursingon Discharge Note-Nursing FABRIZIO CARBALLO :2000 Visit Date:05/08/2023 Inpatient Discharge Instructions Your [...] Pending Diagnostic Test Results Biopsy/pathology Pharmacy Information [facility] Discharge Instructions no lifting heavier than 15 lbs for 3 weeks. Tylenol and motrin fo rmild to moderate pain, oxycodone for severe pain. New Follow Up Appointments after Discharge Follow Up with Jewell Monzon When: Within 7 to 10 days, only if needed Where: [facility] [place] [address] [phone] Business (1) Follow Up with trauma clinic When: Within 1 to 2 weeks Comments: Call to schedule/confirm followup appointment. May be telephone visit. Where: [address] [place] [address] 3, second floor, [address] [place] [address]- [phone] Medications What How Much When Why Instructions Next Dose New acetaminophen (acetaminophen 325 mg Tab) 2 Tablets By Mouth Every 4 hours as needed for Pain 1-3 start New docusate (Colace 100 mg Cap) 1 Capsules By Mouth 2 times a day Duration: 10 Days Pickup at [facility] start New oxycodone (oxyCODONE 5 mg Tab) 1 Tablets By Mouth Every 6 hours as needed for as needed for pain Acute appendicitis Duration: 3 Days Pickup at [facility] 05/10 1:00am Pharmacy Information [facility]: [address] [place] [place] [id number] [phone] What How Much When Comments Stop Taking [...] Test Results CBC BMP WBC: 5.7 E9/L (05/09/23 06:28:00) Glucose Lvl: 89 mg/dL (05/09/23 06:28:00) RBC: 3.8 E12/L Low (05/09/23 06:28:00) BUN: 6 mg/dL (05/09/23 06:28:00) HGB: 8.6 gm/dL Low (05/09/23 06:28:00) Creatinine: 0.6 mg/dL (05/09/23 06:28:00) Hct: 28 % Low (05/09/23:28:00) BUN/Creat Ratio: 10 (05/09/23 06:28:00) MCV: 72.8 fL Low (05/09/23 06:28:00) Sodium Lvl: 142 mmol/L (05/09/23 06:28:00) MCH: 22.9 pg Low (05/09/23 06:28:00) Potassium Lvl: 3.2 mmol/L Low (05/09/23 06:28:00) MCHC: 31.4 gm/dL (05/09/23 06:28:00) Chloride: 110 mmol/L (05/09/23 06:28:00) RDW: 16.8 % High (05/09/23 06:28:00) CO2: 25 mmol/L (05/09/23 06:28:00) Platelet: 201 E9/L (05/09/23 06:28:00) AGAP: 10 mEq/L (05/09/23 06:28:00) MPV: 8.8 fL (05/09/23 06:28:00) Calcium Lvl: 8.2 mg/dL Low (05/09/23 06:28:00) Allergies Abilify (Hallucinations) meloxicam (Constipation) Vicodin (Rash) [...] to the (more content not included)... Normal [facility] ED Clinical Summaryon 2023 ED Clinical Summary [place] [id number] ED Clinical Summary Person Information Name: FABRIZIO CARBALLO [facility] Age: 22 Years : 2000 Sex: Female Language: Montserratian PCP: Nicolás MSN, CELLULAR TOWER CLIMBER-MUSTAPHA, Jewell [place] Marital Status: Single Visit Id: Visit Reason: Abdominal pain; CONSTIPATION, ABD PAIN Speciality: Acuity: 3 Enc Type: Observation Med Service: Emergency Arrival: 05/08/2023 22:59:07 Discharge: LOS: 000 02:34 Checkin: 05/08/2023 22:59:07 Checkout: 05/09/2023 01:33:17 Dispo Type: Admitted as IP to this [facility] EVENTS: Event Name Event Status Request Date/Time [...] 00:50:02 Meds Admin Request 05/09/2023 00:50:36 ADDRESS: [address] [place] [phone] PHYS DOC NOTES: MEDICAL INFORMATION: Prescriptions Given: Medications to Continue with No Changes Other Medications brompheniramine/dext romethorphan/PSE (Bromfed DM oral syrup) 5 Milliliter By Mouth 4 times a day as needed for cough and congestion. Refills: 0. PATIENT EDUCATION INFORMATION: Instructions: Follow up: DIAGNOSIS: Acute appendicitis Normal [facility] ED Note-Physicianon 05-09-19 ED Note-Physician Basic Information Time Seen: Andrea Faustin DOGale 05/08/2023 23:09 Chief Complaint Pt arrives to [...] and Complexity of Problems Differential Diagnosis: [] [facility] Data External documents reviewed: N/A My EKG [...] Regular exercis (more content not included)... Normal [facility] Comment on above: Result Comment: Elec tronically Signed By: Andrea Faustin DO\.br\Date and Time Signed: 05/09/23 00:39 EST ED Patient Education Noteon 05-09-2023 ED Patient Education Note Normal [facility] ED Patient Summaryon 024 ED Patient Summary [place] [id number] Patient Discharge Instructions Person Information Name: FABRIZIO CARBALLO Age: 22 Years Arrival Date: 05/08/2023 22:59:07 Discharge Diagnosis: Acute appendicitis Primary Care Physician: Nicolás MSN, CELLULAR TOWER CLIMBER-HYDROLOGIC ENGINEER, Jewell [place] Provider Information Primary Provider: Andrea Faustin DO Advanced Far[employer] Dealer:None The exam and treatment you received in the Emergency Department were for an urgent problem and are not intended as complete care. It is important that you follow up with a doctor, nurse practitioner, or physician?s medical library assistant for ongoing care. If your symptoms [...] opioids can be used to help relieve fpmwlzeb-lo-jifjkp pain and are often prescribed following a [...] be struggling with addiction, tell your health urgent care nurse practitioner and ask for guidance or call [facility]?S National Helpline at 7-260-726-YUFT. a Source: [place] Department of Health and Human Services/Center for Disease Control & Prevention [facility] Medications Given: Medication Dose Route (more content not included)... Normal [facility] HEMATOLOGYOrdered By: Noble Jones on 05-09-2023 [...] Low 80.0 - 100.0 fL Remisol Heme Monona Absolute 0.7 E9/L Normal 0.2 - 1.0 [...] 05-09-2023 Albumin [Mass/Vol] 3.9 g/dL Normal 3.3-5.[address] [facility] Comment on above: Performed By: #### 2 488203, 5369126, 0604483, 37906699, 2203512 ####[facility] [address] [place] [address] Albumin/Globulin [Mass ratio] 1.2 {ratio} Normal 1.1-2.[address] [facility] Comment on above: Performed By: #### 2 333551, 1736294, 3384291, 04825496, 1124493 ####[facility] Nocekjbbit[address]99 [place] [address] Alk Phos 82 Int._Unit/L Normal 21-98 [facility] Comment on above: Performed By: #### 2 374119, 2478548, 3089453, 18000121, 4135543 ####[facility] Zxyebsjcyv633 [place] [address] ALT 63 Int._Unit/L High 6-46 [facility] Comment on above: Performed By: #### 2 003540, 1126172, 2001683, 78998038, 7272041 ####[facility] [address] [place] [address] AST 36 Int._Unit/L Normal 5-43 [facility] Comment on above: Performed By: #### 2 393382, 1631283, 5740953, 42998025, 7416029 ####[facility] [address]333 [place] [address] Bili Direct 0.1 mg/dL Normal 0.0-0.[address] [facility] Comment on above: Performed By: #### 2 772137, 3293650, 9143323, 54164873, 5980784 ####[facility] Splefnnqwp538 [facility] [place] [address] Bili Indirect 0.2 mg/dL Normal 0.1-0.9 [facility] Comment on above: Performed By: #### 2 521120, 8840680, 2703440, 75413957, 5248997 ####[facility] Tzhbmlumil879 [place] [place] [address] Bili Total 0.3 mg/dL Normal 0.0-1.[address] [facility] Comment on above: Performed By: #### 2 467653, 5088149, 2170264, 63586272, 9966342 ####[facility] [address] [place] [address] Globulin (S) [Mass/Vol] 3.2 g/dL Normal 1.4-4.0 F [facility] Comment on above: Performed By: #### 2 262871, 1092331, 6149681, 10069195, 8509751 ####[facility] [address] [place] [address] Protein [Mass/Vol] 7.1 g/dL Normal 6.0-7.[address] [facility] Comment on above: Performed By: #### 2 700053, 6770238, 7112819, 71060765, 5476518 ####[facility] [address] [place] [address] Inpatient Clinical Summaryon 05-09-2023 Inpatient Clinical Summary [address] [address] Clinical Summary Person Information: Name: FABRIZIO CARBALLO Age: 22 Years : 2000 Sex: Female PCP: Nicolás MINA, CELLULAR TOWER CLIMBER-Jewell LUCIANO Marital Status: Single Race: White Ethnicity: Non- or Language: Montserratian Visit Id: Visit Reason: Abdominal pain; CONSTIPATION, ABD PAIN Speciality: Acuity: Enc Type: Observation Med Service: Medical Arrival: 05/08/2023 22:59:07 Discharge: Dispo Type: Admitted as IP to this Hosp Address: [address] [place] [address] [phone] Provider Notes: Diagnosis: Acute appendicitis Problems Active [...] Follow up: With: Address: When: Jewell Monzon [address] [place] [address] [place] [phone] Business (1) Within 7 to 10 days, only if needed With: Address: When: trauma clinic [address] [place] [address], second floor, [address] [place] [address] Within 1 to 2 weeks Comments: Call to schedule/confirm followup appointment. May be telephone visit. Patient Education Information: Appendicitis, Adult, Vrpa-sg-Hxqw; Laparoscopic Appendectomy, Adult, Care After Normal [facility] Inpatient Patient Summaryon 05-09-2023 Inpatient Patient Summary [address] [address] Patient Discharge Instructions PERSON INFORMATION Name: FABRIZIO CARBALLO Date of : 2000 Current Date: 05/09/2023 10:47:46 PHYSICIANS Admitting Physician: Jamie Steven MD Primary Care Physician: Nicolás MSN, CELLULAR TOWER CLIMBER-HYDROLOGIC ENGINEER, Jewell Alcala PCP Phone Number: [phone] Comment: Discharge Diagnosis: Acute appendicitis Condition at Discharge: Improved HARIS MORENADIMPLEMelo Maximus has been given the following list of [...] Follow up: With: Address: When: Jewell Monzon [address] [place] [address] [address] [place] [phone] Business (1) Within 7 to 10 days, only if needed With: Address: When: trauma clinic [address] [place] [address] 3, second floor, [address] [place] [address] Within 1 to 2 weeks Comments: Call to schedule/confirm followup appointment. May be telephone visit. In the event that this physician does not participate in your insurance network, please consult with your insurance company to find a nearby participating provider. Comment: HARIS Marroquin LEAYAH M, have received the attached patient education materials/instructio ns and have verbalized understanding: Patient Signature Date Clinican/Nurse Signature Date HERE ARE THE MEDICATION CHANGES THAT OCCURRED DURING YOUR HOSPITAL STAY New Medications [facility] [address], [address] [place] [phone], [phone] docusate (Colace 100 mg Cap) 1 Capsules [...] 3 Days. Refills: 0. Pharmacy Information: [facility] [place] Comment: PATIENT EDUCATION INFORMATION Instructions: Appendicitis, [...] is tr (more content not included)... Normal [facility] Insurance Correspondence Off iceon 05-09-2023 Insurance Correspondence Office [id number] #1.00TIFF Normal [facility] Interdisciplinary Note - Chin e Manageron 05-09-2023 Interdisciplinary Note - Poultry Helper Pt is off the floor for Lap Appy. ANt dc 05/09 or 05/10. CRM to follow. Normal [facility] Comment on above: Result Comment: Elec tronically Signed By: Monica Vazquez\.br\Date and Time Signed: 05/09/23 09:48 EST Lipase Levelon 05-09-2023 Lipase Lvl 19 unit/L Normal 13-[address] [facility] Comment on above: Performed By: #### 2 324718, 0656227, 8385600, 29417257, 7854082 ####[facility] [address] [place] [address] Main OR PACU I Recordon 04-20 Main OR PACU I Record PACU Phase I Document Type FT Summary Primary Physician: Jamie Steven MD Finalized Date/Time: 05/09/23 10:42:50 Pt. Name: FABRIZIO CARBALLO D.O.B./Sex: 2000 Female Med Rec #: [id number] Physician: Jamie Steven MD Financial #: [id number] Pt. Type: O Room/Bed: [facility]/ Admit/Disch: 05/08/23 22:59:07 - Institution: Case Times [...] I Outcomes Met? Yes Last Modified By: Brittny Espino RN 05/09/23 10:42:39 Post-Care Text: The patient demonstrates [...] By: Brittny Espino RN 05/09/23 10:[address] [facility] Main OR Preoperative Recordo n 05-09-2023 Main OR Preoperative Record PreOp Document Type FT Summary Primary Physician: Jamie Steven MD Finalized Date/Time: 05/09/23 09:03:34 Pt. Name: LATANYA CARBALLOMelo Mon/Sex: 2000 Female Med Rec #: [id number] Physician: Jamie Steven MD Financial #: [id number] Pt. Type: O Room/Bed: [facility]/ Admit/Disch: 05/08/23 22:59:07 - Institution: Case Times [...] By: Monique Yarbrough RN 05/09/23 09:[address] [facility] Monitor Recordon 05-09-2023 Monitor Record [id number] 5#1.00TIFF Normal [facility] Monitor Record [id number] 0#1.00TIFF Normal [facility] RAD - Preliminary Cat Scan R eporton 05-09-2023 RAD - Preliminary Cat Scan Report [id number] 1#1.00TIFF Normal [facility] UA With Cult Reflexon 2023 Bilirubin Ql (U) Negative Normal Negative [facility] Comment on above: Performed By: #### 2 080966, 63608426, 1633077 #### [facility] [address] [place] [address] Clarity (U) CLEAR Normal Clear [facility] Comment on above: Performed By: #### 2 386293, 87640654, 9307744 #### [facility] [address] [place] [address] Color (U) YELLOW Normal Yellow [facility] Comment on above: Performed By: #### 2 686706, 31132988, 3842992 #### [facility] [address] [place] [address] Epithelial cells.squamous LM.HPF (Urine sed) [#/Area] 0-2 Normal 0-2 [facility] Comment on above: Performed By: #### 2 404292, 41109002, 5284550 #### [facility] [address] [place] [address] Glucose Test strip (U) [Mass/Vol] Negative Normal Negative [facility] Comment on above: Performed By: #### 2 084579, 73406669, 5866148 #### [facility] [address] [place] [address] Hemoglobin Ql (U) Negative Normal Negative [facility] Comment on above: Performed By: #### 2 081623, 59924268, 3647146 #### [facility] [address] [place] [address] Ketones (U) [Mass/Vol] Negative Normal Negative [facility] Comment on above: Performed By: #### 2 308734, 22189570, 7602844 #### [facility] [address] [place] [address] Cawood.plasma/Cawood. RBC (Bld) [Mass ratio] 0-3 Normal 0-3 [facility] Comment on above: Performed By: #### 2 460797, 18098221, 8105068 #### [facility] [address] [place] [address] Nitrite Ql (U) Negative Normal Negative [facility] Comment on above: Performed By: #### 2 513230, 35570551, 0029057 #### [facility] [address] [place] [address] pH (U) 7.0 [pH] Invalid Interpretation Code 5.0-9.[address] [facility] Comment on above: Performed By: #### 2 430930, 66253507, 5471156 #### [facility] [address] [place] [address] Protein (U) [Mass/Vol] Negative Normal Negative [facility] Comment on above: Performed By: #### 2 375533, 81089483, 8261090 #### [facility] [address] [place] [address] Specific gravity (U) [Rel density] 1.015 Invalid Interpretation Code 1.005-1.[address] [facility] Comment on above: Performed By: #### 2 574247, 57687191, 1712434 #### [facility] [address] [place] [address] Type of Urine collection method Cerda Normal [facility] Comment on above: Performed By: #### 2 040777, 02997565, 3439249 #### [facility] [address] [place] [address] Urobilinogen Qn (U) 0.2 {Calderon'U}/dL Normal 0.0-1.[address] [facility] Comment on above: Performed By: #### 2 893321, 14049771, 8748380 #### [facility] [address] [place] [address] WBC Auto Ql (U) Negative Normal Negative [facility] Comment on above: Performed By: #### 2 582998, 93460436, 8549551 #### [facility] [address] [place] [address] WBC LM.HPF (Urine sed) [#/Area] 0-5 Normal 0-[address] [facility] Comment on above: Performed By: #### 2 473785, 52274996, 8946988 #### [facility] [address] [place] [address] URINALYSISOrdered By: Juan Taveras on 05-09-2023 Bilirubin Ql (U) Negative (05/09/23 8:45 AM) Normal Negative [facility] UA Auto SS Clarity (U) Clear (05/09/23 8:45 AM) Normal Clear [facility] UA Auto SS Color (U) Yellow (05/09/23 [...] AM) Normal Negative [facility] UA Auto SS Cawood.plasma/Cawood. RBC (Bld) [Mass ratio] 0-3 /HPF Normal 0-3/HPF [facility] UA A uto SS Nitrite Ql (U) Negative (05/09/23 8:45 AM) Normal Negative [facility] UA Auto SS pH (U) 7.0 *NA* (05/09/23 8:45 AM) Invalid Interpretation Code 5.0 - 9.0 [facility] UA Auto SS Protein (U) [Mass/Vol] Negative (05/09/23 8:45 AM) Normal Negative [facility] UA Auto SS Specific gravity (U) [Rel density] 1.015 *NA* (05/09/23 8:45 AM) Invalid Interpretation Code 1.005 - 1.030 [facility] UA Auto SS UA Spec Desc Cerda (05/09/23 8:45 AM) Normal [facility] UA Auto SS Urobilinogen Qn (U) 0.8731793 {Calderon'U}/dL Normal 0.0 - 1.0 EU/dL [facility] UA Auto SS WBC Auto Ql (U) Negative (05/09/23 8:45 AM) Normal Negative [facility] UA Auto SS WBC LM.HPF (Urine sed) [#/Area] 0-5 /HPF Normal 0-5/HPF [facility] UA Auto SS eGFRon 05-09-2023 eGFR 128 mL/min/1.73 m2 Normal >=[address] [facility] Comment on above: Order Comment: Order added by Discern Expert. Performed By: #### 2 780397, 03716998, 1292494 #### [facility] [address] [place] [address] eGFR 123 mL/min/1.73 m2 Normal >=[address] [facility] Comment on above: Order Comment: Order added by Discern Expert. Performed By: #### 2 459138, 8760811, 5697549, 76048275, 5784112 ####[facility] [address] [place] [address] CHEMISTRYOrdered By: SYSTEM SYSTEM on 05-08-2023 Albumin [...] Treatmenton 04-20 Consent for Treatment [id number] #1.00TIFF Normal [facility] HEMATOLOGYOrdered By: Donte Kerr on 05-08-2023 [...] Low 80.0 - 100.0 fL Remisol Heme Monona Absolute 0.6 E9/L Normal 0.2 - 1.0 [...] 05-08-2023 HCG.beta subunit (U) [Moles/Vol] Negative Normal [facility] Man Sero U BetaHcg Qualon 05-08-2023 HCG.beta subunit (U) [Moles/Vol] Negative Normal [facility] Comment on above: Performed By: #### 2 2970838, 18272317 ####[facility] [address] [place] [address] UA With Cult Reflexon 2023 Bilirubin Ql (U) Negative Normal Negative [facility] Comment on above: Performed By: #### 2 0888846, 22249482 ####[facility] [address] [place] [address] Clarity (U) CLEAR Normal Clear [facility] Comment on above: Performed By: #### 2 0243015, 62962426 ####[facility] [address] [place] [address] Color (U) YELLOW Normal Yellow [facility] Comment on above: Performed By: #### 2 1340834, 93036034 ####[facility] [address] [place] [address] Epithelial cells.squamous LM.HPF (Urine sed) [#/Area] 0-2 Normal 0-2 [facility] Comment on above: Performed By: #### 2 1535929, 17619227 ####[facility] [address] [place] [address] Glucose Test strip (U) [Mass/Vol] Negative Normal Negative [facility] Comment on above: Performed By: #### 2 3896910, 98578090 ####[address] [address] Hemoglobin Ql (U) Negative Normal Negative [facility] Comment on above: Performed By: #### 2 3149170, 54229423 ####[facility] [address] [place] [address] Ketones (U) [Mass/Vol] Negative Normal Negative [facility] Comment on above: Performed By: #### 2 2655566, 56744358 ####[facility] [address] [place] [address] Cawood.plasma/Cawood. RBC (Bld) [Mass ratio] 0-3 Normal 0-3 [facility] Comment on above: Performed By: #### 2 3657348, 94288430 ####[facility] [address] [place] [address] Nitrite Ql (U) Negative Normal Negative [facility] Comment on above: Performed By: #### 2 1456120, 69969602 ####[facility] [address] [place] [address] pH (U) 8.5 [pH] Invalid Interpretation Code 5.0-9.[address] [facility] Comment on above: Performed By: #### 2 0077853, 93628884 ####[facility] [address] [place] [address] Protein (U) [Mass/Vol] Negative Normal Negative [facility] Comment on above: Performed By: #### 2 8590850, 30234680 ####[facility] [address] [place] [address] Specific gravity (U) [Rel density] 1.020 Invalid Interpretation Code 1.005-1.[address] [facility] Comment on above: Performed By: #### 2 5671327, 11096434 ####[facility] [address] [place] [address] Type of Urine collection method Clean Catch Normal [facility] Comment on above: Performed By: #### 2 2887501, 84931019 ####[address] [address] Urobilinogen Qn (U) 0.2 {Calderon'U}/dL Normal 0.0-1.[address] [facility] Comment on above: Performed By: #### 2 0199044, 00631806 ####[facility] [address] [place] [address] WBC Auto Ql (U) Negative Normal Negative [facility] Comment on above: Performed By: #### 2 5286804, 62559533 ####[facility] [address] [place] [address] WBC LM.HPF (Urine sed) [#/Area] 0-5 Normal 0-[address] [facility] Comment on above: Performed By: #### 2 3251834, 73100083 ####[facility] [address] [place] [address] URINALYSISOrdered By: Donte Kerr on 05-08-2023 Bilirubin [...] PM) Normal Negative [facility] UA Auto SS Cawood.plasma/Cawood. RBC (Bld) [Mass ratio] 0-3 /HPF Normal 0-3/HPF [facility] UA A uto SS Nitrite Ql (U) Negative (05/08/23 11:23 PM) Normal Negative [facility] UA Auto SS pH (U) 8.5 *NA* (05/08/23 11:23 PM) Invalid Interpretation Code 5.0 - 9.0 [facility] UA Auto SS Protein (U) [Mass/Vol] Negative (05/08/23 11:23 PM) Normal Negative [facility] UA Auto SS Specific gravity (U) [Rel density] 1.020 *NA* (05/08/23 11:23 PM) Invalid Interpretation Code 1.005 - 1.030 [facility] UA Auto SS UA Spec Desc Clean Catch (05/08/23 11:23 PM) Normal [facility] UA Auto SS Urobilinogen Qn (U) 0.3346516 {Calderon'U}/dL Normal 0.0 - 1.0 EU/dL [facility] UA Auto SS WBC Auto Ql (U) Negative (05/08/23 11:23 PM) Normal Negative [facility] UA Auto SS WBC LM.HPF (Urine sed) [#/Area] 0-5 /HPF Normal 0-5/HPF [facility] UA Auto SS Consent for Treatmenton 04-19 Consent for Treatment [id number] #1.00TIFF Normal [facility] Discharge Instructionson Discharge Instructions [id number] 6#1.00TIFF Normal [facility] ED Clinical Summaryon 2023 ED Clinical Summary [address] [address] ED Clinical Summary Person Information Name: FABRIZIO CARBALLO/NewReagan Age: 22 Years : 2000 Sex: Female Language: Montserratian PCP: Nicolás MINA, CELLULAR TOWER CLIMBER-HYDROLOGIC ENGINEER, Jewell Alcala Marital Status: Single Visit Id: [...] 05/02/2023 09:22:45 05/02/2023 09:22:45 05/02/2023 09:22:45 ADDRESS: [address] [place] [phone] PHYS DOC NOTES: MEDICAL INFORMATION: Prescriptions Given: New Medications [employer] [facility] [employer] [address], [address] [place], [place] [id number], [phone] brompheniramine/dext romethorphan/PSE (Bromfed DM oral syrup) 5 [...] EDUCATION INFORMATION: Instructions: Upper Respiratory Infection, Adult, Mubp-gh-Dflf Follow up: With: Address: When: [address] [place], [place] [phone] [employer] ([employer] In 3 days 05/05/2023 Comments: Follow-up with your primary care provider in 3 to 5 days. If symptoms worsen, do not improve, or new symptoms arise please report back to emergency department for further evaluation. DIAGNOSIS: Acute URI Normal [facility] ED Note-Physicianon 05-02-19 ED Note-Physician Basic [...] Number and Complexity of Problems Differential Diagnosis: [facility] Data External documents reviewed: [] My EKG [...] or dispensed an antibiotic. [DOES NOT SATISFY [facility] PERFORMANCE] Shared decision making: [] Code status: [] Assessment/Plan Dx: URI (upper respiratory infection) J06.9 Disposition Plan Patient Discharge Condition Stable Discharge Disposition To home Discharge Prescription List Prescriptions Bromfed DM oral syrup, 5 mL, Oral, QID, PRN Medrol 4 mg Tab, 1 packet(s), Oral, As Directed Follow-up With When Contact Information Jewell Monzon In 3 days 05/05/[address] [place] [address] [phone] Business (1) Additional Instructions: Follow-up with your primary care provider in 3 to 5 days. If symptoms worsen, do not improve, or new symptoms arise please report back to emergency department for further evaluation. Patient Education Upper Respiratory Infection, Adult, Svov-ne-Kxft Attestation Patient seen and evaluated by the physician medical library assistant. Attending physician was present in the emergency department and supervised care. This visit was perfo (more content not included)... Normal [facility] Comment on above: Result Comment: Elec [...] to help relieve symptoms, such as: ? Kyeb-hww-dlrcdku cold medicines. ? Medicines to reduce coughing [...] other clear broths. General instructions ? Take jcnp-rgt-llrtydc and prescription medicines only as told by [...] cannot use soap and water, use hand casino controller. ? Avoid touching your mouth, face, eyes, [...] get better within 7?10 days. ? Take bljg-elw-phyflml and prescription medicines only as told by your doctor. This information is not intended to replace advice given to you by your health care (more content not included)... Normal [facility] ED Patient Summaryon 024 ED Patient Summary [address] [address] Patient Discharge Instructions Person Information Name: FABRIZIO CARBALLO Age: 22 Years Arrival Date: 05/02/2023 08:16:05 Discharge Diagnosis: Acute URI Primary Care Physician: Nicolás MSN, CELLULAR TOWER CLIMBER-HYDROLOGIC ENGINEER, Jewell Alcala Provider Information Primary Provider: Love Clifford, Adolph Alejo Advanced Faro Dealer:None The exam and treatment you received in the Emergency Department were for an urgent problem and are not intended as complete care. It is important that you follow up with a doctor, nurse practitioner, or physician?s medical library assistant for ongoing care. If your symptoms [...] Follow-up Instructions: With: Address: When: Jewell Monzon [address] [place] [address] [place], [place] [phone] [employer] (1) In 3 days 05/05/2023 Comments: Follow-up [...] Patient Education Materials: Upper Respiratory Infection, Adult, Argu-cc-Lala A MESSAGE TO ALL PATIENTS REGARDING OPIOIDS PRESCRIPTION OPIOIDS: WHAT YOU NEED TO KNOW Prescription opioids can be used to help relieve ibbzwmoa-hg-kwilma pain and are often prescribed following a [...] opioids a (more content not included)... Normal [facility] Grp A Strp PCRon 05-02-2023 Grp A Strp Intrl Ctrl Pass Normal [facility] Comment on above: Order Comment: Order Added on by Discern Rule. Performed By: #### 1 7307156, [id number], [id number], [id number] #### [facility] [address] [place] [address] S. pyogenes DNA ELYSIA+probe Ql (Throat) Negative Normal [facility] Comment on above: Order Comment: Order Added on by Discern Rule. Result Comment: Test ing performed using DNA amplification. Performed By: #### 1 8648557, [id number], 662618770, [id number] #### [facility] [address] [place] [address] Influenza A&B Agon Influenzae A Ag Negative Normal Negative [facility] Comment on above: Performed By: #### 1 6245806, 9736987199, 413740723, [id number] #### [facility] [address] [place] [address] Influenzae B Ag Negative Normal Negative [facility] Comment on above: Result Comment: Test sensitivity and specificity vary for age group, specimen type, antigen types, and prevalence of disease. Test results must be evaluated in conjunction with other clinical data available to the physician. Individuals who received nasally administered Influenza A vaccine may have positive test results up to 3 days after vaccination. Performed By: #### 1 3118488, [id number], [id number], [id number] #### [facility] [address] [place] [address] MICRO OTHER TESTSOrdered By: Mary Guerrero on 05-02-2023 Influenzae A Ag Negative (05/02/23 8:28 AM) Normal Negative [facility] Man Sero Influenzae B Ag Negative 1 (05/02/23 8:28 AM) Normal Negative [facility] Man Sero Comment on above: Interpretive Data: [...] POS Ctl Pass (05/02/23 8:28 AM) Normal [facility] Man Sero S. pyogenes Ag IA.rapid Ql (Throat) Negative (05/02/23 8:28 AM) Normal Negative [facility] Sero SARS-CoV+SARS-CoV-2 (COVID-19) Ag IA.rapid Ql (Resp) Not Detected 2 (05/02/23 8:28 AM) Normal Not Detected [facility] Man Sero Comment on above: Interpretive Data: T he [employer] Veritor System for Rapid Detection of SARS-CoV-2 [...] COV Int NEG Ctl Pass Normal [facility] Comment on above: Performed By: #### 1 2715989, [id number], 772880544, [id number] #### [facility] [address] [place] [address] Rapid COV Int POS Ctl Pass Normal [facility] Comment on above: Performed By: #### 1 [id number], [id number], [id number], [id number] #### [facility] [address] [place] [address] SARS-CoV+SARS-CoV-2 (COVID-19) Ag IA.rapid Ql (Resp) Not detected Normal Not Detected [facility] Comment on above: Result Comment: The Deem? System for Rapid Detection of SARS-CoV-2 is [...] other viruses or pathogens; and, in the [facility], this test is only authorized for the duration of the declaration that circumstances exist justifying the authorization of emergency use of in vitro diagnostics for detection and/or diagnosis of the virus that causes COVID-19 under Section 564(b)(1) of the Act, 21 U.S.C. ? 360bbb-3(b)(1), unless the authorization is terminated or revoked sooner. Performed By: #### 1 [id number], [id number], [id number], [id number] #### [facility] [address] [place] [address] Rapid Strep w/rfxon 05-02-19 24 S. pyogenes Ag IA.rapid Ql (Throat) Negative Normal Negative [facility] Comment on above: Performed By: #### 1 [id number], [id number], [id number], [id number] #### [facility] [address] [place] [address] XR Chest 2 Viewson 4 XR Chest [...] ANCELMO Technologist: ANNIE Technical Comments Radiation Dose: Kar in mGy = . DAP = . Normal [facility] ED Note-Physicianon 04-24-19 ED Note-Physician Basic Information Time Seen: Luciano CROSS, Carlos Nichole 04/23/2023 19:16 Chief Complaint slipped on broom [...] and Complexity of Problems Differential Diagnosis: [] [facility] Data External documents reviewed: [] My EKG [...] Information Jewell Monzon In 3 days 04/26/[address] [place] [address] [phone] Business (1) Additional Instructions: Follow-up with your primary care provider in 3 to 5 days. If symptoms worsen, do not improve, or new symptoms arise please report back to emergency department for further evaluation. Patient Education Back Injury Prevention, Hayp-wq-Jldh Back Exercises, Yejm-jn-Picd Attestation Patient seen and evaluated by the physician medical library assistant. Attending physician was present in the emergency department and supervised care. This visit was performed by both the physician and an APC. I performed all aspects of the MDM as documented. This report was transcribed using voice recognition software. Every effort was made to ensure accuracy, however, inadvertently computerized facility engineer mistakes may be present. Appropriate healthcare PPE [...] Ongoing Abnormal c (more content not included)... [facility] Comment on above: Result Comment: Elec tronically [...] Edmond MD Transcribed by: ANCELMO Technologist: SIMONE Normal [facility] CT Spine Cervical w/o Contra ston [...] MD Transcribed by: ANCELMO Technologist: SIMONE Lay [facility] Consent for Treatmenton Consent for Treatment [id number] #1.00TIFF [facility] Discharge Instructionson Discharge Instructions [id number]#1.00TIFF [facility] ED Clinical Summaryon 2023 ED Clinical Summary [place] [id number] ED Clinical Summary Person Information Name: FABRIZIO CARBALLO [facility] Age: 22 Years : 2000 Sex: Female Language: Montserratian PCP: Nicolás MSN, CELLULAR TOWER CLIMBER-HYDROLOGIC ENGINEERJewell Marital Status: Single Visit Id: Visit Reason: [...] 04/23/2023 20:12:55 04/23/2023 20:12:55 04/23/2023 20:12:55 ADDRESS: [address] [place] [phone] [facility] DOC NOTES: MEDICAL INFORMATION: Prescriptions Given: [...] PATIENT EDUCATION INFORMATION: Instructions: Back Injury Prevention, Bdng-bg-Ughw; Back Exercises, Nlkh-vj-Uclh Follow up: With: Address: When: Jewell Monzon [address] [place] [address] Dr [place], [place] [id number] [phone] [employer] (1) In 3 days 04/26/2023 Comments: Follow-up with your primary care provider in 3 to 5 days. If symptoms worsen, do not improve, or new symptoms arise please report back to emergency department for further evaluation. DIAGNOSIS: Back spasm; Fall Normal [facility] ED Patient Education Noteon 04-23-2023 ED [...] the object as you can. Do not clam picker a heavy object that is far [...] objects on shelves at waist level. Put senior label specialist objects on lower or higher shelves. ? Find ways to lower your stress (more content not included)... Normal [facility] ED Patient Summaryon 024 ED Patient Summary [place] [id number] Patient Discharge Instructions Person Information Name: FABRIZIO CARBALLO Age: 22 Years Arrival Date: 04/23/2023 19:11:15 Discharge Diagnosis: Back spasm; Fall Primary Care Physician: Nicolás MINA, CELLULAR TOWER CLIMBER-HYDROLOGIC ENGINEER, Jewell [place] Provider Information Primary Provider: Andrea Faustin DO Advanced Faro Dealer:None The exam and treatment you received in the Emergency Department were for an urgent problem and are not intended as complete care. It is important that you follow up with a doctor, nurse practitioner, or physician?s medical library assistant for ongoing care. If your symptoms [...] Follow-up Instructions: With: Address: When: Jewell Monzon [address] [place] [address] [place] [phone] [employer] (1) In 3 days 04/26/2023 Comments: Follow-up [...] provider. Patient Education Materials: Back Injury Prevention, Oykq-je-Jojt; Back Exercises, Qpff-tb-Nvly A MESSAGE TO ALL PATIENTS REGARDING OPIOIDS PRESCRIPTION OPIOIDS: WHAT YOU NEED TO KNOW Prescription opioids can be used to help relieve nfidqdel-iq-ftngmx pain and are often prescribed following a [...] about t (more content not included)... Normal [facility] Patient Educationon 04-03-19 Patient Education Mental [...] pray, or go to a place of confucianism. ? Do some deep breathing. To do [...] or salt (sodium). General instructions ? Take yxub-hhm-xkfbtym and prescription medicines only as told by [...] www.[facility].ne (more content not included)... Normal [facility] Patient Educationon 03-26-19 Patient Education Neurology [...] these instructions at home: Medicines ? Take lssd-iqm-zyxwrll and prescription medicines only as told by [...] and dr (more content not included)... Normal [facility] Discharge Instructionson Discharge Instructions [id number] #1.00TIFF Normal [facility] ED Clinical Summaryon 2022 ED Clinical Summary [place] [id number] ED Clinical Summary Person Information Name: FABRIZIO CARBALLO/NewLamar Age: 22 Years : 2000 Sex: Female Language: Montserratian PCP: Nicolás MSN, CELLULAR TOWER CLIMBER-HYDROLOGIC ENGINEER, Jewell [place] Marital Status: Single Visit Id: [...] 02/03/2023 00:33:08 02/03/2023 00:33:08 02/03/2023 00:33:08 ADDRESS: [address] [place] [phone] [facility] DOC NOTES: MEDICAL INFORMATION: Prescriptions Given: [...] Depression, Adult Follow up: With: Address: When: [facility] In 3 days 02/06/2023 Comments: Please follow-up with your primary care doctor in the P for further evaluation and management. Please return to the ED for any new or worsening symptoms. With: Address: When: [place] [address] [phone] Business (1) In 3 days DIAGNOSIS: Depression Normal [facility] ED Note-Nursingon 02-03-2023 ED Note-Nursing Patient now done talking on the phone with Estrella from [facility]. Estrella has a safety plan set up for patient to reference when in need and will follow up with [facility] on Sunday. Normal [facility] ED Note-Physicianon 02-04-20 ED Note-Physician Basic [...] and Complexity of Problems Differential Diagnosis: [] [facility] Data External documents reviewed: [] My EKG [...] cleared for psychiatric evaluation. Patient talked with [facility] they were able to arrange outpatient resources [...] eGFR Ethanol Level Morphology Rapid COVID Antigen ([facility]) U Beta Hcg Qual Disposition Plan Discharge Prescription List Prescriptions No active prescription medications Follow-up With When Contact Information [facility] In 3 days 02/06/2023 EST Additional Instructions: Please follow-up with your primary care doctor in the P for further evaluation and management. Please return to the ED for any new or worsening symptoms. Jewell Monzon In 3 days [address] [place] [address]- [phone] Business (1) Additional Instructions: Patient Education Managing [...] refills, N (more content not included)... Normal [facility] Comment on above: Result Comment: Elec tronically Signed By: Earline Bond DO\.br\Date and Time Signed: 02/03/23 01:00 EST ED [...] pray, or go to a place of confucianism. ? Do some deep breathing. To do [...] or salt (sodium). General instructions ? Take cnlo-idp-gqeubbn and prescription medicines only as told by [...] www.mentalhealth[facility].ne (more content not included)... Normal [facility] ED Patient Summaryon 023 ED Patient Summary [place] [id number] Patient Discharge Instructions Person Information Name: FABRIZIO CARBALLO Age: 22 Years Arrival Date: 02/02/2023 20:50:59 Discharge Diagnosis: Depression Primary Care Physician: Nicolás MSN, CELLULAR TOWER CLIMBER-HYDROLOGIC ENGINEER, Jewell [place] Provider Information Primary Provider: Earline Bond DO Advanced Faro Dealer:None The exam and treatment you received in the Emergency Department were for an urgent problem and are not intended as complete care. It is important that you follow up with a doctor, nurse practitioner, or physician?s medical library assistant for ongoing care. If your symptoms become worse or you do not improve as expected and you are unable to reach your usual health care provider, you should return to the Emergency Department. We are available 24 hours a day. FABRIZIO CARBALLO has been given the following list of patient education materials, prescriptions and follow-up instructions: Follow-up Instructions: With: Address: When: [facility] In 3 days 02/06/2023 Comments: Please follow-up with your primary care doctor in the [facility] for further evaluation and management. Please return to the ED for any new or worsening symptoms. With: Address: When: Jewell Monzon [address] [place] [address] [phone] [employer] (1) In 3 days In the event that this physician does not participate in your insurance network, please consult with your insurance company to find a nearby participating provider. Patient Education Materials: Managing Depression, Adult A MESSAGE TO ALL PATIENTS REGARDING OPIOIDS PRESCRIPTION OPIOIDS: WHAT YOU NEED TO KNOW Prescription opioids can be used to help relieve rlwnwknr-qj-ccmuyo pain and are often prescribed following a [...] about t (more content not included)... Normal [facility] Outside Recordson 02-03-2023 Outside Records [id number] #1.00TIFF Normal [facility] Auto Diffon 02-02-2023 Basophils/100 WBC (Bld) 0.6 % Normal 0.0-2.0 F [facility] Comment on above: Order Comment: Order Added by Discern Expert. Performed By: #### 2 [id number], [id number], [id number] #### [facility] [address] [place] [address] Basophils/Leukocytes Auto (Bld) [Pure # fraction] 0.0 E9/L Normal 0.0-0.[address] [facility] Comment on above: Order Comment: Order Added by Discern Expert. Performed By: #### 2 452531, [id number], 0762534 #### [facility] [address] [place] [address] Eosinophils/100 WBC (Bld) 3.0 % Normal 0.0-8.[address] [facility] Comment on above: Order Comment: Order Added by Discern Expert. Performed By: #### 2 536800, [id number], 4024292 #### [facility] [address] [place] [address] Eosinophils/Leukocytes Auto (Bld) [Pure # fraction] 0.3 E9/L Normal 0.0-0.[address] [facility] Comment on above: Order Comment: Order Added by Discern Expert. Performed By: #### 2 917859, [id number], 6708751 #### [facility] [address] [place] [address] Lymphocytes/100 WBC (Bld) 33.8 % Normal 14.0-50.[address] [facility] Comment on above: Order Comment: Order Added by Discern Expert. Performed By: #### 2 252761, [id number], 9770940 #### [facility] [address] [place] [address] Lymphocytes/Leukocytes Auto (Bld) [Pure # fraction] 2.9 E9/L Normal 1.0-4.[address] [facility] Comment on above: Order Comment: Order Added by Discern Expert. Performed By: #### 2 739671, 92080702, 0653635 #### [facility] [address] [place] [address] Monocytes/100 WBC (Bld) 8.3 % Normal 4.0-14.0 [facility] Comment on above: Order Comment: Order Added by Discern Expert. Performed By: #### 2 501612, 49455402, 5009716 #### [facility] [address] [place] [address] Monocytes/Leukocytes Auto (Bld) [Pure # fraction] 0.7 E9/L Normal 0.2-1.[address] [facility] Comment on above: Order Comment: Order Added by Discern Expert. Performed By: #### 2 250477, 33544137, 2175212 #### [facility] [address] [place] [address] Neutrophils/100 WBC (Bld) 54.3 % Normal 36.0-75.[address] [facility] Comment on above: Order Comment: Order Added by Discern Expert. Performed By: #### 2 067905, 53550147, 8481268 #### [facility] [address] [place] [address] Neutrophils/Leukocytes Auto (Bld) [Pure # fraction] 4.7 E9/L Normal 2.0-7.[address] [facility] Comment on above: Order Comment: Order Added by Discern Expert. Performed By: #### 2 819859, 22731594, 2079666 #### [facility] [address] [place] [address] CBC w/ Auto Diffon 3 Erythrocyte distribution width (RBC) [Ratio] 16.5 % High 10.9-14.[address] [facility] Comment on above: Performed By: #### 2 307515, 47140867, 0671801, 49225420, 6788099 ####[facility] [address] [place] [address] Hematocrit (Bld) [Volume fraction] 31.2 % Low 34.0-46.[address] [facility] Comment on above: Performed By: #### 2 676941, 72017522, 8475991, 01694529, 9232933 ####[facility] [address] [place] [address] Hemoglobin (Bld) [Mass/Vol] 9.8 g/dL Low 12.0-16.[address] [facility] Comment on above: Performed By: #### 2 309867, 14923222, 5120904, 98060100, 5606607 ####[facility] [address] [place] [address] MCH (RBC) [Entitic mass] 23.3 pg Low 27.0-34.[address] [facility] Comment on above: Performed By: #### 2 892198, 75582064, 4811726, 04308475, 8753169 ####[facility] [address] [place] [address] MCHC (RBC) [Mass/Vol] 31.4 g/dL Normal 31.4-36.[address] [facility] Comment on above: Performed By: #### 2 706581, 92985843, 6507934, 81599089, 4015886 ####[facility] [address] [place] [address] MCV (RBC) [Entitic vol] 74.3 fL Low 80.0-100.0 F [facility] Comment on above: Performed By: #### 2 102151, 84907071, 6516812, 79937736, 8856923 ####[address] [address] Platelet mean volume (Bld) [Entitic vol] 8.0 fL Normal 6.4-10.[address] [facility] Comment on above: Performed By: #### 2 931550, 66272391, 5282373, 19785744, 9773965 ####[address] [address] Platelets (Bld) [#/Vol] 361.0 E9/L Normal 150.0-500.[address] [facility] Comment on above: Performed By: #### 2 506095, 14292279, 8523199, 93596266, 6944326 ####[place] [address] [place] [address] RBC (Bld) [#/Vol] 4.2 E12/L Low 4.3-5.[address] [facility] Comment on above: Performed By: #### 2 085888, 73977083, 9494315, 08728590, 8374961 ####[address] [address] WBC corrected for nucl RBC Auto (Bld) [#/Vol] 8.7 E9/L Normal 4.0-11.0 [facility] Comment on above: Performed By: #### 2 405665, 69561450, 8840179, 66577649, 4428656 ####[facility] [address] [place] [address] CHEMISTRYOrdered By: SYSTEM SYSTEM on 02-02-2023 Amphetamines [...] FT Remisol Ethanol [Mass/Vol] mg/dL Normal <=7mg/dL [facility] R emisol GFR/1.73 sq M.predicted among non-blacks MDRD (S/P/Bld) [Vol rate/Area] 124 mL/min/1.73 m2 Normal >=59mL/min/1 .73 m2 [facility] Chem S Comment on above: Interpretive Data: [...] 3.4 mmol/L Low 3.5 - 5.3 mmol/L [facility] Remisol Protein [Mass/Vol] 7.6 g/dL Normal 6.0 - 7.8 gm/dL [facility] Remisol Sodium [Moles/Vol] 141 mmol/L Normal 135 - 145 mmol/L [facility] Remisol Urea nitrogen [Mass/Vol] 14 mg/dL Normal 5 - 21 mg/dL [facility] Remisol Urea nitrogen/Creatinine [Mass ratio] 20 mg/mg Normal 10 - 20 [facility] Remisol CMPon 02-02-2023 Albumin [Mass/Vol] 4.0 g/dL Normal 3.3-5.[address] [facility] Comment on above: Performed By: #### 2 438637, 06311468, 4964308, 31773246, 2861007 ####[facility] [address] [place] [address] Albumin/Globulin (S) [Mass conc ratio] 1.1 Normal 1.1-2.[address] [facility] Comment on above: Performed By: #### 2 936000, 94540724, 2401352, 47525683, 2774274 ####[facility] [address] [place] [address] ALP [Catalytic activity/Vol] 65 Int._Unit/L Normal 21-[address] [facility] Comment on above: Performed By: #### 2 516548, 22313598, 0574245, 81968209, 5172488 ####[facility] [address] [place] [address] ALT No additional P-5'-P [Catalytic activity/Vol] 26 Int._Unit/L Normal 6-[address] [facility] Comment on above: Performed By: #### 2 251464, 39619352, 8665830, 91448262, 3360660 ####[facility] [address] [place] [address] AST [Catalytic activity/Vol] 24 Int._Unit/L Normal 5-[address] [facility] Comment on above: Performed By: #### 2 419070, 03182755, 1451067, 65775057, 5956507 ####[facility] [address] [place] [address] Bilirubin [Mass/Vol] 0.1 mg/dL Normal 0.0-1.1 [facility] Comment on above: Performed By: #### 2 493603, 60017665, 0852842, 42256285, 5489659 ####[facility] [address] [place] [address] Creatinine [Mass/Vol] 0.7 mg/dL Normal 0.5-1.3 [facility] Comment on above: Performed By: #### 2 048130, 63008104, 5798442, 26257829, 0971355 ####[facility] [address] [place] [address] Globulin (S) [Mass/Vol] 3.6 g/dL Normal 1.4-4.0 F [facility] Comment on above: Performed By: #### 2 186125, 74413658, 6457368, 09674173, 9970652 ####[facility] [address] [place] [address] Protein [Mass/Vol] 7.6 g/dL Normal 6.0-7.[address] [facility] Comment on above: Performed By: #### 2 224452, 39476874, 6095615, 50989704, 0484454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 Dr. Lissy Allen SENT TO REF LAB 04/04/[address] [facility] Comment on above: Performed By: #### M ISC #### [facility] [address] [place] [address] Dr. Lissy Allen US PREG BIOPHY W [...] by: DEVIN ANAND Date: 2021-04-04 13:49 Normal [facility] US PREG BIOPHY W NON STRESSo n [...] LUIS HART Date: 2021-04-01 13:17 Normal The [facility] US PREG BIOPHY W NON STRESSo [...] by: DEVIN ANAND Date: 2021-03-31 07:02 Normal The [facility] AMYLASEon 03-30-2021 Amylase [Catalytic activity/Vol] 70 U/L Normal 31-110 [facility] Comment on above: Performed By: #### A LT, AST, LIPA, CREA, SUSAN, ELEC ####[facility] [address] [place], [place] [address]V[address]Dr. Lissy Allen BUNon 03-30-2021 Urea nitrogen [Mass/Vol] 10.0 mg/dL Normal 7.0-17.0 [facility] Comment on above: Performed By: #### B UN #### [facility] [address] [place], [place] [address] Dr. Lissy Allen CBC AUTO DIFFon 03-30-2021 BASO # 0.0 103/ul Normal 0.0-0.1 [facility] Comment on above: Performed By: #### C BC ####[facility] [address] [place] [place] [address]Dr. Lissy Allen Basophils/100 WBC (Bld) 0.3 % Normal 0.2-2.0 [facility] Comment on above: Performed By: #### C BC ####[facility] [address] [place] [address]Dr. Lissy Allen EO # 0.0 103/ul Normal 0.0-0.7 [facility] Comment on above: Performed By: #### C BC ####[facility] Jsxftbsofx[address] [place], [place] [address]Dr. Lissy Alejandro Eosinophils/100 WBC (Bld) 0.2 % Critically low 0.9-7.0 [facility] Comment on above: Performed By: #### C BC ####[facility] Ivbyknkxfg[address] [place], [place] [address]Dr. Lissy Allen Erythrocyte distribution width (RBC) [Ratio] 18.6 % Critically high 11.0-15.0 [facility] Comment on above: Performed By: #### C BC ####[facility] Fhwtcubvgq[address] [place], [place] [address]Dr. Lissy Allen Hematocrit (Bld) [Volume fraction] 28.6 % Critically low 36.0-48.0 [facility] Comment on above: Performed By: #### C BC ####[facility] Utdbmvht[address] [place], [place] [address]Dr. Lissy Allen Hemoglobin (Bld) [Mass/Vol] 8.5 g/dL Critically low 12.0-16.0 [facility] Comment on above: Performed By: #### C BC ####[facility] Jrobenhinu[address] [place], [place] [address]Dr. Lissy Allen IG # 0.07 10e3/ul Critically high 0.00-0.03 [facility] Comment on above: Performed By: #### C BC ####[facility] L[address]mscpteyp[address] [place], [place] [address]Dr. Lissy Allen IG % 0.6 % Critically high 0.0-0.5 [facility] Comment on above: Performed By: #### C BC ####[facility] Nfsiselami1023 [place] [address]Dr. Lissy Allen LYMPH # 2.2 103/ul Normal 1.2-3.8 [facility] Comment on above: Performed By: #### C BC ####[facility] Jfzruwvkcm4153 [place] [address]Dr. Lissy Allen Lymphocytes/100 WBC (Bld) 19.5 % Critically low 20.5-60.0 [facility] Comment on above: Performed By: #### C BC ####[facility] Kxnnibmgid[address] [place], [place] [address]Dr. Lissy Allen MANUAL DIFF REQ NO Normal [facility] Comment on above: Performed By: #### C BC ####[facility] Bvllitpvzv[address] [place], [place] [address]Dr. Lissy Allen MCH (RBC) [Entitic mass] 23.0 pg Critically low 26.7-34.0 [facility] Comment on above: Performed By: #### C BC ####[facility] Zrnxarix[address] [place], [place] [address]Dr. Lissy Allen MCHC (RBC) [Mass/Vol] 29.7 g/dL Critically low 29.9-35.2 [facility] Comment on above: Performed By: #### C BC ####[facility] Auxennlrxj[address] [place], [place] [address]Dr. Lissy Allen MCV (RBC) [Entitic vol] 77.5 fL Critically low 81.0-99. 0 [facility] Comment on above: Performed By: #### C BC ####[facility] Lfvrooiyxi[address] [place], [place] [address]DrGale Allen MONO # 0.8 103/ul Normal 0.3-0.8 [facility] Comment on above: Performed By: #### C BC ####[facility] Dhbcnrqqed[address] [place], [place] [address]Dr. Lissy Allen Monocytes/100 WBC (Bld) 6.8 % Normal 1.7-12.0 [facility] Comment on above: Performed By: #### C BC ####[facility] Qvidrecqfe4881 [place] [address]Dr. Lissy Allen NEUT # 8.2 103/ul Critically high 1.4-6.5 [facility] Comment on above: Performed By: #### C BC ####[facility] Vbsgdvvvho0269 [place] [address]Dr. Lissy Allen Neutrophils/100 WBC (Bld) 72.6 % Normal 43.0-75.0 [facility] Comment on above: Performed By: #### C BC ####[facility] Lngzaortrd1662 [place] [address]Dr. Lissy Allen Platelet mean volume (Bld) [Entitic vol] 11.1 fL Normal 9.5-13.5 [facility] Comment on above: Performed By: #### C BC ####[facility] Eeveaqtszr5207 [place] [address]Dr. Lissy Allen PLT 265 103/ul Normal 150-450 [facility] Comment on above: Performed By: #### C BC ####[facility] Fgsdijtiyo[address] [place], [place] [address]Dr. Lissy Allen RBC 3.69 106/ul Critically low 4.20-5.40 [facility] Comment on above: Performed By: #### C BC ####[facility] Qtmsnpobfl[address] [place] [id number]. Lissy Allen WBC 11.2 103/ul Critically high 4.0-11.0 [facility] Comment on above: Performed By: #### C BC ####[facility] K[address]etljqdpm25[address] [place] [id number]. Lissy Allen CREATININEon 03-30-2021 Creatinine [Mass/Vol] 0.60 mg/dL Normal 0.52-1.04 [facility] Comment on above: Performed By: #### A LT, AST, LIPA, CREA, SUSAN, ELEC ####[facility] Mwnioaqoxb2227 [place] [address]Dr. Lissy Allen EGFR-AF NAURUAN >60 Normal >=60 [facility] Comment on above: Performed By: #### A LT, AST, LIPA, CREA, SUSAN, ELEC ####[facility] Kwypalkbsr04[address] [place] [address]DrGale Allen EGFR-NON AF NAURUAN >60 Normal >=60 [facility] Comment on above: Performed By: #### A LT, AST, LIPA, CREA, SUSAN, ELEC ####[facility] Tpijphqinn37[address] [place] [address]Dr. Lissy Allen DRUG SCREEN RAPID (URINE)on 03-30-2021 AMP Negative Normal NEGATIVE [facility] Comment on above: Performed By: #### D RUGRPD #### [facility] [address] [place] [address] [address] Lissy Allen BAR Negative Normal NEGATIVE The [facility] Comment on above: Performed By: #### D RUGRPD #### [facility] [address] [address] [address] Lsisy Allen BUP Negative Normal NEGATIVE The [facility] Comment on above: Performed By: #### D RUGRPD #### [facility] [address] [address] [address] Lissy Allen BZO Negative Normal NEGATIVE The [facility] Comment on above: Performed By: #### D RUGRPD #### [facility] [address] [address] [address] Lissy Allen DAVID Negative Normal NEGATIVE The [facility] Comment on above: Performed By: #### D RUGRPD #### [facility] [address] [address] [address] Lissy Allen CUT-OFFS SEE BELOW Normal [facility] Comment on above: Result Comment: AMP [...] ng/mL Performed By: #### D RUGRPD #### [facility] [address] [place] [address] Dr. Lissy Allen DRUG CUT HEADER DRUG CLASS TEST SYSTEM CUT-OFF CONCENTRATIONS ARE FOLLOWS: Normal The [facility] Comment on above: Performed By: #### D RUGRPD #### [facility] [address] [place] [address] Dr. Lissy Allen mAMP Negative Normal NEGATIVE [facility] Comment on above: Performed By: #### D RUGRPD #### [facility] [address] [place] [address] Dr. Lissy Allen MTD Negative Normal NEGATIVE [facility] Comment on above: Performed By: #### D RUGRPD #### [facility] [address] [place] [address] Dr. Lissy Allen OPI Negative Normal NEGATIVE [facility] Comment on above: Performed By: #### D RUGRPD #### [facility] [address] [place] [address] Dr. Lissy Allen OXY Negative Normal NEGATIVE [facility] Comment on above: Performed By: #### D RUGRPD #### [facility] [address] [place] [address] Dr. Lissy Allen PCP Negative Normal NEGATIVE [facility] Comment on above: Performed By: #### D RUGRPD #### [facility] [address] [place] [address] Dr. Lissy Allen PPX Negative Normal NEGATIVE [facility] Comment on above: Performed By: #### D RUGRPD #### [facility] [address] [place] [address] Dr. Lissy Allen TCA Negative Normal NEGATIVE [facility] Comment on above: Performed By: #### D RUGRPD #### [facility] [address] [place] [address] Dr. Lissy Allen THC Negative Normal NEGATIVE The [facility] Comment on above: Performed By: #### D RUGRPD #### [facility] [address] [address] [address] Lissy Allen ELECTROLYTESon 03-30-2021 Anion gap [Moles/Vol] 12.4 mmol/L Normal Th e [facility] Comment on above: Performed By: #### A LT, AST, LIPA, CREA, SUSAN, ELEC ####[facility] Vkrdsyejwo75[address] [place] [address]Dr. Lissy Allen Chloride [Moles/Vol] 105 mmol/L Normal 98-107 [facility] Comment on above: Performed By: #### A LT, AST, LIPA, CREA, SUSAN, ELEC ####[facility] Ncuasamxik[address] [place] [address]Dr. Lissy Allen CO2 [Moles/Vol] 23.5 mmol/L Normal 22.0-30.0 [facility] Comment on above: Performed By: #### A LT, AST, LIPA, CREA, SUSAN, ELEC ####[facility] Glfqgbzuib59[address] [place] [address]Dr. Lissy Allen Potassium [Moles/Vol] 3.9 mmol/L Normal 3.4-5.0 [facility] Comment on above: Performed By: #### A LT, AST, LIPA, CREA, SUSAN, ELEC ####[facility] Bkvfbazywo2148 [place] [address]Dr. Lissy Allen Sodium [Moles/Vol] 137 mmol/L Normal 137-145 [facility] Comment on above: Performed By: #### A LT, AST, LIPA, CREA, SUSAN, ELEC ####[facility] Olctlvjfhk9540 [place] [address]Dr. Lissy Allen LIPASEon 03-30-2021 Lipase [Catalytic activity/Vol] 80.0 U/L Normal 23.0-300.0 [facility] Comment on above: Performed By: #### A LT, AST, LIPA, CREA, SUSAN, ELEC ####[facility] Nnspqogsfn7313 [place] [address]Dr. Darcyshawna Alejandro SGOTon 03-30-2021 AST [Catalytic activity/Vol] 22 U/L Normal 14-36 [facility] Comment on above: Performed By: #### A LT, AST, LIPA, CREA, SUSAN, ELEC ####[facility] Hbbuxzpjom7[address] [place] [address]Dr. Lissy Allen SGPTon 03-30-2021 ALT [Catalytic activity/Vol] 16 U/L Normal 9-52 [facility] Comment on above: Performed By: #### A LT, AST, LIPA, CREA, SUSAN, ELEC ####[facility] Ermlfhvpre2681 [place] [address]Dr. Lissy Allen UA (CLEAN/CATCH) MICROSCOPIC IF INDICATEon 03-30-2021 Bilirubin Ql (U) Negative Normal NEGATIVE [facility] Comment on above: Performed By: #### U ARMICR ####[facility] Ftqcmzahck[address] [place], [place] [address]Dr. Lissy Allen Clarity (U) CLEAR Normal CLEAR [facility] Comment on above: Performed By: #### U ARMICR ####[facility] Nfxlpcfmje02[address] [place], [place] [address]Dr. Lissy Allen Color (U) LT. YELLOW Normal YELLOW [facility] Comment on above: Performed By: #### U ARMICR ####[facility] Tjukgxutne[address] [place], [place] [address]Dr. Lissy Allen Glucose Ql (U) Negative Normal NEGATIVE [facility] Comment on above: Performed By: #### U ARMICR ####[facility] Fhhixcavqe[address] [place], [place] [address]Dr. Lissy Allen Hemoglobin Ql (U) Negative Normal NEGATIVE [facility] Comment on above: Performed By: #### U ARMICR ####[facility] Uqfwlmbsjd7232[address] [place], [place] [address]Dr. Lissy Allen Ketones Ql (U) Negative Normal NEGATIVE The [facility] Comment on above: Performed By: #### U ARMICR ####[facility] Qoixafcqzo9893 [place] [address]Dr. Lissy Allen LEUKOCYTES Negative Normal NEGATIVE The [facility] Comment on above: Performed By: #### U ARMICR ####[facility] Gwpcwfzuvv9811 [place] [address]Dr. Darcyshawna Allen Nitrite Ql (U) Negative Normal NEGATIVE [facility] Comment on above: Performed By: #### U ARMICR ####[facility] Qryosbffjt119[address] [place], [place] [address]Dr. Lissy Allen pH (U) 6.0 [pH] Normal 5-9 [facility] Comment on above: Performed By: #### U ARMICR ####[facility] Ihtqgvkzlw[address] [place], [place] [address]Dr. Lissy Allen SPEC GRAVITY 1.025 Normal 1.005-<=1.02 5 [facility] Comment on above: Performed By: #### U ARMICR ####[facility] W[address]ffhvpyhz[address] [place], [place] [address]Dr. Lissy Allen UA PROTEIN Negative Normal NEGATIVE/ TRACE The [facility] Comment on above: Performed By: #### U ARMICR ####[facility] Htslcjrxhw[address] [place], [place] [address]Dr. Lissy Allen UR MICRO IND NOT INDICATED Normal [facility] Comment on above: Performed By: #### U ARMICR ####[facility] Ntj[address]iswh[address] [place], [place] [address]Dr. Lissy Allen Urobilinogen Qn (U) 0.2 {Calderon'U}/dL Normal 0.2 - 1. 0 [facility] Comment on above: Performed By: #### U ARMICR ####[facility] Veedvkzrwm[address] [place], [place] [address]Dr. Lissy Allen US PREG BIOPHY W NON [...] by: DEVIN ANAND Date: 2021-03-29 13:04 Normal [facility] US PREG BIOPHY W NON STRESSo n [...] by: DEVIN ALFARO Date: 2021-03-27 14:42 Normal [facility] US PREG BIOPHY W NON STRESSo n [...] biophysical profile score: 8.0 Electronically authenticated by: EDVIN ANAND Date: 2021-03-25 07:49 Normal [facility] US PREG BIOPHY W NON STRESSo n [...] by: LUIS HART Date: 2021-03-24 14:45 Normal [facility] US PREG UMBILICAL ARTERYon 0 03-24-2021 US [...] by: LUIS HART Date: 2021-03-24 13:37 Normal [facility] HBV surface Ag IA Qlon 06-12 Hepatitis B Surface Antigen Negative [facility] HIV 1+2 Ab+HIV1 p24 Ag IA Ql on 06-13-2019 HIV 1&2 AB/AG Non-Reactive [facility] No Panel Informationon 06-12 Rubella immune IgG 1.46 [facility] No Panel InformationOrdered By: Mary Mckoy on 06-13-2019 [facility] T. pallidum IgG+IgM IA Ql (S )Ordered By: Mary Mckoy on 06-13-2019 Syphilis Non-Reactive [facility] Vital Signs Date Time Vital Sign Value Performing Clinician Facility 10-30-2024 13:30-0400 Body mass index (BMI) [Ratio] 34.59 kg/m2 Michelle Segura NP Work Phone: [facility] 10-30-2024 13:30-0400 Body weight 91.4 kg Michelle Segura NP Work Phone: [facility] 10-30-2024 13:30-0400 Diastolic blood pressure 82 mm[Hg] Imchelle Imelda [employer] Work Phone: [facility] 10-30-2024 13:30-0400 Systolic blood pressure 122 mm[Hg] Michelle Imelda [employer] Work Phone: [facility] 10-02-2024 11:32-0400 Body mass index (BMI) [Ratio] 34.74 kg/m2 Susan Yesenia PA Work Phone: [facility] 10-02-2024 11:32-0400 Body weight 91.81 kg Susan Yesenia PA Work Phone: [facility] 10-02-2024 11:32-0400 Diastolic blood pressure 80 mm[Hg] Susan Yesenia PA Work Phone: [facility] 10-02-2024 11:32-0400 Systolic blood pressure 120 mm[Hg] Susan Patterson PA Work Phone: [facility] 09-15-2024 11:38-0400 Body mass index (BMI) [Ratio] 34.06 kg/m2 Andrey Sandhya DO Work Phone: [facility] 09-15-2024 11:38-0400 Body weight 89.99 kg Andrey Sandhya DO Work Phone: [facility] 09-15-2024 11:38-0400 Diastolic blood pressure 74 mm[Hg] Andrey Sandhya DO Work Phone: [facility] 09-15-2024 11:38-0400 Systolic blood pressure 114 mm[Hg] Andrey Sandhya DO Work Phone: [facility] 09-02-2024 11:17-0400 Body mass index (BMI) [Ratio] 33.17 kg/m2 Susan Yesenia PA Work Phone: [facility] 09-02-2024 11:17-0400 Body weight 87.66 kg Susan Yesenia PA Work Phone: [facility] 09-02-2024 11:17-0400 Diastolic blood pressure 82 mm[Hg] Susan DAMON Work Phone: [facility] 09-02-2024 11:17-0400 Systolic blood pressure 118 mm[Hg] Susan DAMON Work Phone: [facility] 08-27-2024 10:13-0400 Body height 165.1 cm Genia Correia MD Work Phone: [facility] 08-27-2024 10:13-0400 Body mass index (BMI) [Ratio] 32.02 kg/m2 Genia Correia MD Work Phone: [facility] 08-27-2024 10:13-0400 Body weight 87.27 kg Genia Correia MD Work Phone: [facility] 08-27-2024 10:13-0400 Diastolic blood pressure 82 mm[Hg] Genia Correia MD Work Phone: [facility] 08-27-2024 10:13-0400 Heart rate 72 /min Genia Correia MD Work Phone: [facility] 08-27-2024 10:13-0400 Systolic blood pressure 125 mm[Hg] Genia Correia MD Work Phone: [facility] 08-12-2024 19:17-0400 Body temperature 97.5 [degF] [facility] 08-12-2024 19:17-0400 Diastolic blood pressure 64 mm[Hg] [facility] 08-12-2024 19:17-0400 Heart rate 81 /min [facility] 08-12-2024 19:17-0400 Respiratory rate 18 /min [facility] 08-12-2024 19:17-0400 SaO2% (BldA) [Mass fraction] 95 % [facility] 08-12-2024 19:17-0400 Systolic blood pressure 118 mm[Hg] [facility] 08-12-2024 19:09-0400 Body height 165.1 cm [facility] 08-12-2024 19:09-0400 Body weight 87.54 kg [facility] 08-05-2024 11:52-0400 Body mass index (BMI) [Ratio] 33.2 kg/m2 Andrey Sandhya DO Work Phone: [facility] 08-05-2024 11:52-0400 Body weight 87.73 kg Andrey Sandhya DO Work Phone: [facility] 08-05-2024 11:52-0400 Diastolic blood pressure 76 mm[Hg] Andrey Sandhya DO Work Phone: [facility] 08-05-2024 11:52-0400 Systolic blood pressure 120 mm[Hg] Andrey Sandhya DO Work Phone: [facility] 07-27-2024 22:49-0400 SaO2% (BldA) [Mass fraction] 97 % Kaylinn Dokken [facility] 07-27-2024 22:49-0400 Diastolic blood pressure 64 mm[Hg] Kaylinn Dokken [facility] 07-27-2024 22:49-0400 Systolic blood pressure 105 mm[Hg] Kaylinn Dokken [facility] 07-27-2024 22:49-0400 Heart rate 67 /min Kaylinn Dokken [facility] 07-27-2024 22:49-0400 Mean blood pressure 78 mm[Hg] [facility] Dok[facility] 07-27-2024 21:28-0400 Body temperature 98.06 [degF] [facility]linn Dok[facility] 07-27-2024 21:28-0400 Diastolic blood pressure 82 mm[Hg] Kaylinn Dokken [facility] 07-27-2024 21:28-0400 Heart rate 76 /min Kaylinn Dokken [facility] 07-27-2024 21:28-0400 Respiratory rate 17 /min Kaylinn Dokken [facility] 07-27-2024 21:28-0400 SaO2% (BldA) [Mass fraction] 100 % Kaylinn Dokken [facility] 07-27-2024 21:28-0400 Systolic blood pressure 122 mm[Hg] Kaylinn Dokken [facility] 06-12-2024 13:57-0400 Body mass index (BMI) [Ratio] 30.59 kg/m2 [facility] 06-12-2024 13:57-0400 Body weight 80.83 kg [facility] 06-12-2024 13:57-0400 Diastolic blood pressure 78 mm[Hg] [facility] 06-12-2024 13:57-0400 Systolic blood pressure 128 mm[Hg] [facility] 06-04-2024 20:42-0400 Diastolic blood pressure 83 mm[Hg] Kaylinn Dokken [facility] 06-04-2024 20:42-0400 Systolic blood pressure 119 mm[Hg] Kaylinn Dokken [facility] 06-04-2024 20:42-0400 Heart rate 90 /min Kaylinn Dokken [facility] 06-04-2024 20:42-0400 Mean blood pressure 95 mm[Hg] Kaylinn Dokken [facility] 06-04-2024 20:42-0400 Respiratory rate 16 /min Kayl[facility] Dokken [facility] 06-04-2024 20:42-0400 SaO2% (BldA) [Mass fraction] 99 % Kaylinn Dokken [facility] 06-04-2024 20:00-0400 Diastolic blood pressure 66 mm[Hg] Kaylinn Dokken [facility] 06-04-2024 20:00-0400 Mean blood pressure 80 mm[Hg] Kaylinn Dokken [facility] 06-04-2024 20:00-0400 Systolic blood pressure 109 mm[Hg] Kaylinn Dokken [facility] 06-04-2024 18:34-0400 Body temperature 97.16 [degF] Kaylinn Dokken [facility] 06-04-2024 18:34-0400 Diastolic blood pressure 78 mm[Hg] Kaylinn Dokken [facility] 06-04-2024 18:34-0400 Heart rate 89 /min Kaylinn Dokken [facility] 06-04-2024 18:34-0400 Respiratory rate 17 /min Kaylinn Dokken [facility] 06-04-2024 18:34-0400 SaO2% (BldA) [Mass fraction] 100 % Kaylinn Dokken [facility] 06-04-2024 18:34-0400 Systolic blood pressure 122 mm[Hg] Kaylinn Dokken [facility] 05-28-2024 15:14-0400 Body temperature 98.24 [degF] Adolph Aleman [facility] 05-28-2024 15:14-0400 Diastolic blood pressure 67 mm[Hg] Astrakash Aleman [facility] 05-28-2024 15:14-0400 Heart rate 88 /min [facility] 05-28-2024 15:14-0400 Respiratory rate 18 /min [facility] 05-28-2024 15:14-0400 SaO2% (BldA) [Mass fraction] 99 % [facility] 05-28-2024 15:14-0400 Systolic blood pressure 121 mm[Hg] [facility] 05-07-2024 15:17-0500 Body mass index (BMI) [Ratio] 30.92 kg/m2 Susan DAMON Work Phone: [facility] 05-07-2024 15:17-0500 Body weight 81.7 kg Susan DAMON Work Phone: [facility] 05-07-2024 15:17-0500 Diastolic blood pressure 70 mm[Hg] Susan DAMON Work Phone: [facility] 05-07-2024 15:17-0500 Systolic blood pressure 120 mm[Hg] Susan DAMON Work Phone: [facility] 10-09-2023 09:44-0400 Body temperature 97.16 [degF] Jewell Monzon [facility] 10-09-2023 09:44-0400 Diastolic blood pressure 88 mm[Hg] Jewell Nicolás [facility] 10-09-2023 09:44-0400 Heart rate 88 /min Jewell Nicolás [facility] 10-09-2023 09:44-0400 Respiratory rate 14 /min Jewell Nicolás [facility] 10-09-2023 09:44-0400 SaO2% (BldA) [Mass fraction] 98 % Jewell Nicolás [facility] 10-09-2023 09:44-0400 Systolic blood pressure 112 mm[Hg] Jewell Nicolás [facility] 10-06-2023 22:00-0400 Heart rate 78 /min Andrea Ramin [facility] 10-06-2023 22:00-0400 SaO2% (BldA) [Mass fraction] 98 % Andrea Ramin [facility] 10-06-2023 21:30-0400 Diastolic blood pressure 70 mm[Hg] Andrea Ramin [facility] 10-06-2023 21:30-0400 Heart rate 70 /min Andrea Ramin [facility] 10-06-2023 21:30-0400 Mean blood pressure 81 mm[Hg] Andrea Ramin [facility] 10-06-2023 21:30-0400 Respiratory rate 16 /min Andrea Ramin [facility] 10-06-2023 21:30-0400 Systolic blood pressure 104 mm[Hg] Andrea Ramin [facility] 10-06-2023 21:00-0400 Diastolic blood pressure 73 mm[Hg] Andrea Ramin [facility] 10-06-2023 21:00-0400 Heart rate 71 /min Andrea Ramin [facility] 10-06-2023 21:00-0400 Mean blood pressure 83 mm[Hg] Andrea Ramin [facility] 10-06-2023 21:00-0400 Respiratory rate 15 /min Andrea Ramin [facility] 10-06-2023 20:00-0400 Diastolic blood pressure 88 mm[Hg] Andrea Ramin [facility] 10-06-2023 20:00-0400 Mean blood pressure 97 mm[Hg] Andrea Ramin [facility] 10-06-2023 20:00-0400 Systolic blood pressure 115 mm[Hg] Andrea Ramin [facility] 10-06-2023 19:11-0400 Body temperature 98.42 [degF] Andrea Ramin [facility] 10-06-2023 19:11-0400 Heart rate 81 /min Andrea [facility] 10-06-2023 19:11-0400 Respiratory rate 20 /min Andrea [facility] 10-06-2023 19:11-0400 SaO2% (BldA) [Mass fraction] 100 % Andrea Ramin [facility] 05-15-2023 12:59-0500 Blood Pressure Location Jewell Nicolás [facility] 05-15-2023 12:59-0500 Body temperature 98.06 [degF] Jewell Nicolás [facility] 05-15-2023 12:59-0500 Diastolic blood pressure 74 mm[Hg] Jewell Nicolás [facility] 05-15-2023 12:59-0500 Heart rate 93 /min Jewell Nicolás [facility] 05-15-2023 12:59-0500 Respiratory rate 16 /min Jewell Nicolás [facility] 05-15-2023 12:59-0500 SaO2% (BldA) [Mass fraction] 98 % Jewell Monzon [facility] 05-15-2023 12:59-0500 Systolic blood pressure 132 mm[Hg] Jewell Monzon [facility] 05-09-2023 18:21-0500 Hourly Rounding Jamie [facility] 05-09-2023 18:21-0500 Promise to Return Jamie [facility]idge [facility] 05-09-2023 17:21-0500 Hourly Rounding Jamie Claridge [facility] 05-09-2023 17:21-0500 Promise to Return Jamie Claridge [facility] 05-09-2023 16:22-0500 Hourly Rounding Jamie [facility] 05-09-2023 16:22-0500 Promise to Return Jamie [facility] 05-09-2023 15:00-0500 Diastolic blood pressure 61 mm[Hg] Jamie [facility] 05-09-2023 15:00-0500 Heart rate 63 /min Jamie [facility] 05-09-2023 15:00-0500 SaO2% (BldA) [Mass fraction] 97 % Jamie Claridge [facility] 05-09-2023 15:00-0500 Systolic blood pressure 97 mm[Hg] Jamie Claridge [facility] 05-09-2023 11:55-0500 Heart rate 87 /min Jamie Claridge [facility] 05-09-2023 11:55-0500 SaO2% (BldA) [Mass fraction] 96 % Jamie Scalesidge [facility] 05-09-2023 11:53-0500 Body temperature 97.7 [degF] Jamie Scales[facility] 05-09-2023 11:53-0500 Diastolic blood pressure 71 mm[Hg] Jamie Scales[facility] 05-09-2023 11:53-0500 Mean blood pressure 83 mm[Hg] Jamie Scalesidge [facility] 05-09-2023 11:53-0500 Systolic blood pressure 109 mm[Hg] Jamie Scales[facility] 05-09-2023 10:35-0500 Diastolic blood pressure 93 mm[Hg] Jamie Scalesidge [facility] 05-09-2023 10:35-0500 Heart rate 93 /min Jamie Scales[facility] 05-09-2023 10:35-0500 Mean blood pressure 108 mm[Hg] Jamie Scalesidge [facility] 05-09-2023 10:35-0500 SaO2% (BldA) [Mass fraction] 98 % Jamie Scalesidge [facility] 05-09-2023 10:35-0500 Systolic blood pressure 137 mm[Hg] Jamie [facility] 05-09-2023 09:47-0500 Body temperature 97.52 [degF] Jamie [facility]es[facility] 05-09-2023 09:47-0500 Mean blood pressure 85 mm[Hg] Jamiealex Scalesidge [facility] 05-09-2023 09:47-0500 Respiratory rate 15 /min Jamie [facility] 05-09-2023 09:45-0500 Mean blood pressure 85 mm[Hg] Jamie [facility] 05-09-2023 09:45-0500 Respiratory rate 14 /min Jamie [facility] 05-09-2023 09:40-0500 Respiratory rate 16 /min Jamie [facility] 05-09-2023 09:32-0500 Body temperature 97.16 [degF] Jamie [facility] 05-09-2023 09:25-0500 Respiratory rate 12 /min Jamie [facility] 05-09-2023 09:20-0500 Respiratory rate 11 /min Jamie [facility] 05-09-2023 09:15-0500 Respiratory rate 15 /min Jamie [facility] 05-09-2023 04:20-0500 Blood Pressure Location Jamie [facility] 05-09-2023 04:20-0500 Body temperature 98.42 [degF] Jamie [facility] 05-09-2023 01:53-0500 Blood Pressure Location Jamie [facility] 05-09-2023 01:53-0500 Body temperature 97.88 [degF] Jamie [facility] 05-09-2023 01:53-0500 Heart rate 78 /min Jamie [facility] 05-09-2023 01:45-0500 Mean blood pressure 94 mm[Hg] Jamie Steven [facility] 05-09-2023 00:00-0500 Body temperature 100.04 [degF] Jamie Steven [facility] 05-08-2023 23:03-0500 Body temperature 100.94 [degF] Jamie Steven [facility] 05-08-2023 23:03-0500 Heart rate 87 /min Jamie Steven [facility] 05-02-2023 08:19-0500 Body temperature 97.88 [degF] [facility] 05-02-2023 08:19-0500 Diastolic blood pressure 77 mm[Hg] [facility] 05-02-2023 08:19-0500 Heart rate 92 /min [facility] 05-02-2023 08:19-0500 Respiratory rate 18 /min [facility] 05-02-2023 08:19-0500 SaO2% (BldA) [Mass fraction] 94 % [facility] 05-02-2023 08:19-0500 Systolic blood pressure 124 mm[Hg] [facility] 04-23-2023 19:18-0500 Body temperature 98.06 [degF] Andrea Ramin [facility] 04-23-2023 19:18-0500 Diastolic blood pressure 82 mm[Hg] Andrea Ramin [facility] 04-23-2023 19:18-0500 Heart rate 71 /min Andrea Ramin [facility] 04-23-2023 19:18-0500 Respiratory rate 20 /min Andrea Ramin [facility] 04-23-2023 19:18-0500 SaO2% (BldA) [Mass fraction] 98 % Andrea Ramin [facility] 04-23-2023 19:18-0500 Systolic blood pressure 120 mm[Hg] Andrea Ramin [facility] 02-03-2023 00:18-0500 Diastolic blood pressure 88 mm[Hg] Kaylinn Dokken [facility] 02-03-2023 00:18-0500 Heart rate 65 /min Kaylinn Dokken [facility] 02-03-2023 00:18-0500 Mean blood pressure 96 mm[Hg] Kaylinn Dokken [facility] 02-03-2023 00:18-0500 Respiratory rate 18 /min Kaylinn Dokken [facility] 02-03-2023 00:18-0500 SaO2% (BldA) [Mass fraction] 99 % Kaylinn Dokken [facility] 02-03-2023 00:18-0500 Systolic blood pressure 112 mm[Hg] Kaylinn Dokken [facility] 02-02-2023 21:07-0500 Body temperature 97.88 [degF] Kaylinn Dokken [facility] 02-02-2023 21:07-0500 Diastolic blood pressure 101 mm[Hg] Kaylinn Dokken [facility] 02-02-2023 21:07-0500 Heart rate 112 /min Kaylinn Dokken [facility] 02-02-2023 21:07-0500 Respiratory rate 16 /min Kaylinn Dokken [facility] 02-02-2023 21:07-0500 SaO2% (BldA) [Mass fraction] 100 % Earline Bond [facility] 02-02-2023 21:07-0500 Systolic blood pressure 138 mm[Hg] Earline Bond [facility] 10-16-2022 14:13-0400 Blood Pressure Location Jewell Nicolás [facility] 10-16-2022 14:13-0400 Body temperature 96.44 [degF] Jewell Nicolás [facility] 10-16-2022 14:13-0400 Diastolic blood pressure 78 mm[Hg] Jewell Nicolás [facility] 10-16-2022 14:13-0400 Heart rate 78 /min Jewell Nicolás [facility] 10-16-2022 14:13-0400 Respiratory rate 18 /min Jewell Nicolás [facility] 10-16-2022 14:13-0400 SaO2% (BldA) [Mass fraction] 99 % Jewell Nicolás [facility] 10-16-2022 14:13-0400 Systolic blood pressure 118 mm[Hg] Jewell Nicolás [facility] 07-10-2022 14:44-0400 Blood Pressure Location MARCIA SIDELL [facility] 07-10-2022 14:44-0400 Body temperature 98.24 [degF] MARCIA SIDELL [facility] 07-10-2022 14:44-0400 Diastolic blood pressure 72 mm[Hg] MARCIA SIDELL [facility] 07-10-2022 14:44-0400 Heart rate 105 /min MARCIA SIDELL [facility] 07-10-2022 14:44-0400 SaO2% (BldA) [Mass fraction] 99 % MARCIA SIDELL [facility] 07-10-2022 14:44-0400 Systolic blood pressure 114 mm[Hg] MARCIA SIDELL [facility] 03-02-2022 14:15-0500 Diastolic blood pressure 83 mm[Hg] [facility]andy [facility] DDS [facility] 03-02-2022 14:15-0500 Heart rate 65 /min aCndy Mora DDS [facility] Phone: [facility] 03-02-2022 14:15-0500 Respiratory rate 20 /min Candy Mora DDS [facility] 03-02-2022 14:15-0500 SaO2% (BldA) [Mass fraction] 98 % Candy Mora DDS Work Phone: [employer] 03-02-2022 14:15-0500 Systolic blood pressure 116 mm[Hg] Candy Mora DDS Work Phone: [facility] 03-02-2022 13:57-0500 Body temperature 97.39 [degF] Candy Mora DDS Work Phone: [employer] 03-02-2022 11:53-0500 Body height 165.1 cm Candy Mora DDS Work Phone: [employer] 03-02-2022 11:53-0500 Body mass index (BMI) [Ratio] 34.11 kg/m2 Candy Mora DDS Work Phone: [facility] 03-02-2022 11:53-0500 Body weight 92.99 kg Candy Mora DDS Work Phone: [facility] 02-19-2022 07:14-0500 Diastolic blood pressure 83 mm[Hg] Andrea Ramin [facility] 02-19-2022 07:14-0500 Heart rate 78 /min Andrea Ramin [facility] 02-19-2022 07:14-0500 Respiratory rate 16 /min Andrea Ramin [facility] 02-19-2022 07:14-0500 SaO2% (BldA) [Mass fraction] 99 % Andrea Ramin [facility] 02-19-2022 07:14-0500 Systolic blood pressure 121 mm[Hg] Andrea Ramin [facility] 02-19-2022 05:40-0500 Body temperature 97.7 [degF] Andrea Ramin [facility] 02-19-2022 05:40-0500 Diastolic blood pressure 85 mm[Hg] Andrea Ramin [facility] 02-19-2022 05:40-0500 Heart rate 89 /min Andrea Ramin [facility] 02-19-2022 05:40-0500 Respiratory rate 16 /min Andrea Ramin [facility] 02-19-2022 05:40-0500 SaO2% (BldA) [Mass fraction] 100 % Andrea Ramin [facility] 02-19-2022 05:40-0500 Systolic blood pressure 129 mm[Hg] Andrea Ramin [facility] 02-16-2022 11:00-0500 Body height 165.[address] 02-16-2022 11:00-0500 Body mass index (BMI) [Ratio] 34.11 kg/m2 [facility] 02-16-2022 11:00-0500 Body weight 92.[address] [facility] 02-04-2022 10:22-0500 Body temperature 97.7 [degF] Reece Yip [facility] 02-04-2022 10:22-0500 Diastolic blood pressure 70 mm[Hg] Reece Yip [facility] 02-04-2022 10:22-0500 Heart rate 81 /min Reece Yip [facility] 02-04-2022 10:22-0500 Respiratory rate 16 /min Reece Yip [facility] 02-04-2022 10:22-0500 SaO2% (BldA) [Mass fraction] 98 % Reece Yip [facility] 02-04-2022 10:22-0500 Systolic blood pressure 132 mm[Hg] Reece Yip [facility] 01-16-2022 14:31-0400 Body height 165.1 cm Candy Mora DDS Work Phone: [facility] 01-16-2022 14:31-0400 Body mass index (BMI) [Ratio] 33.78 kg/m2 Candy Mora DDS Work Phone: [facility] 01-16-2022 14:31-0400 Body temperature 98.01 [degF] Candy Mora DDS [facility] 01-16-2022 14:31-0400 Body weight 92.08 kg Candy Mora DDS [facility] 01-16-2022 14:31-0400 Diastolic blood pressure 81 mm[Hg] Candy Mora DDS [facility] 01-16-2022 14:31-0400 Heart rate 105 /min Candy Mora DDS [facility] 01-16-2022 14:31-0400 Respiratory rate 14 /min Candy Mora DDS Work [facility]: [facility] 01-16-2022 14:31-0400 SaO2% (BldA) [Mass fraction] 99 % Candy Mora DDS Work [facility]: [facility] 01-16-2022 14:31-0400 Systolic blood pressure 105 mm[Hg] Candy Mora DDS Work Phone: [facility] 08-27-2021 08:32-0400 Body temperature 98.24 [degF] Lane Berger [facility] 08-27-2021 08:32-0400 Diastolic blood pressure 63 mm[Hg] Lane Ab [facility] 08-27-2021 08:32-0400 Heart rate 78 /min Lane Ab [facility] 08-27-2021 08:32-0400 Respiratory rate 20 /min Lane Berger [facility] 08-27-2021 08:32-0400 SaO2% (BldA) [Mass fraction] 98 % Lane Ab [facility] 08-27-2021 08:32-0400 Systolic blood pressure 113 mm[Hg] [facility] Ab [facility] Encounters Encounter Date Encounter Type Care Provider Facility Start: 10-30-2024 End: 10-30-2024 Ricardo Segura NP Work Phone: [facility] Start: 10-30-2024 End: 10-30-2024 Ricardo Segura NP Work Phone: [facility] Start: 10-30-2024 End: 10-30-2024 Telephone encounter Viola Jones RN [facility] [place] Start: 10-30-2024 End: 10-30-2024 ambulatory MICHELLE SEGURA Not Available Start: 10-30-2024 End: 10-30-2024 Office outpatient visit 15 minutes Michelle Segura [employer] Work Phone: [facility] Comment on above: Third trimester preg tyrese ([facility]); 30 weeks gestation of ([facility]); 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[facility]); Rh negative state in antepartum period, unspecified trimester ([facility]); Other iron deficiency anemia Start: 10-29-2024 End: 10-29-2024 Telephone encounter Maryan King RN [facility]- Medicine at [facility] Start: 10-23-2024 End: 10-23-2024 ambulatory [facility] Start: 10-20-2024 End: 10-20-2024 Patient encounter procedure Genia Blake MD -[facility] Work Phone: Start: 10-20-2024 End: 10-20-2024 ambulatory NON [facility] Work Phone: Start: 10-16-2024 End: 10-16-2024 ambulatory [facility] Start: 10-14-2024 End: 10-14-2024 Telephone encounter Maryan King RN Maternal- Medicine at [facility] Start: 10-09-2024 End: 10-09-2024 Telephone encounter Erick Bradley [facility] Start: 10-08-2024 End: 10-08-2024 Telephone encounter Maryan King RN [facility] at [facility] Start: 10-07-2024 End: 10-07-2024 Telephone encounter Maryan King RN [facility] at [facility] Comment on above: 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, single or unspecified fetus (Primary Dx); 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, 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, single or unspecified fetus; 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, single or unspecified fetus Iron deficiency anem ia, unspecified iron deficiency anemia type (Primary Dx) Start: 10-06-2024 End: 10-06-2024 ambulatory Kwan Conner Lester Facility:[facility] Start: 10-02-2024 ambulatory [facility] Start: 10-02-2024 End: 10-02-2024 Clinisync Result Encounter Andrey Sandhya DO Work Phone: [facility] External [facility] Unsolicited Start: 10-02-2024 End: 10-02-2024 Clinisync Result Encounter Andrey Sandhya DO Work Phone: [facility] External [facility] Unsolicited Start: 10-02-2024 End: 10-02-2024 ambulatory SUSAN PATTERSON Not Available Start: 10-02-2024 End: 10-02-2024 Office outpatient visit 15 minutes Susan Patterson PA Work Phone: [facility] Comment on above: Anti-D antibodies pr esent ([facility]); 26 weeks gestation of ([facility]); Second trimester ([facility]); Herpes simplex Start: 10-01-2024 End: 10-01-2024 Telephone encounter Mirian Magallanes RN [facility] at [facility] Start: 09-18-2024 End: 09-22-2024 ambulatory [facility] Start: 09-15-2024 End: 09-15-2024 Bamboo flowsheet Andrey Sandhya DO Work Phone: [facility] Start: 09-15-2024 End: 09-15-2024 Bamboo flowsheet Andrey Sandhya DO Work Phone: [facility] Start: 09-15-2024 End: 09-15-2024 ambulatory ANDREY SANDHYA Not Available Start: 09-15-2024 End: 09-15-2024 Office outpatient visit 15 minutes Andrey Sandhya DO Work Phone: [facility] Comment on above: Second trimester pre gnancy ([facility]); 24 weeks gestation of ([facility]); Diabetes mellitus screening; Herpes simplex; Rh negative state in antepartum period, unspecified trimester ([facility]) Start: 09-12-2024 End: 09-12-2024 ambulatory [facility] Start: 09-11-2024 End: 09-11-2024 Telephone encounter Genia Correia MD Work Phone: [facility] Start: 09-05-2024 End: 09-05-2024 ambulatory [facility] Start: 09-02-2024 End: 09-02-2024 Bamboo flowsheet Susan DAMON Work Phone: [facility] Start: 09-02-2024 End: 09-02-2024 Bamboo flowsheet Susan DAMON Work Phone: [facility] Start: 09-02-2024 End: 09-02-2024 ambulatory SUSAN PATTERSON Not Available Start: 09-02-2024 End: 09-02-2024 Office outpatient visit 15 minutes Susan DAMON Work Phone: [facility] Comment on above: Second trimester pre gnancy ([facility]); 22 weeks gestation of ([facility]) Start: 08-28-2024 End: 08-28-2024 Orders Only Nydia Baig RN [facility] at [facility] Comment on above: 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, single or unspecified fetus (Primary Dx); History of intrauterine growth restriction in prior , currently ; with history of section, antepartum Start: 08-27-2024 End: 08-27-2024 Chart abstracting Genia Correia MD Work Phone: [facility] Ob[facility]etric[facility]Gynecology Start: 08-27-2024 ambulatory ANDREY Tammie [facility] Start: 08-27-2024 End: 08-27-2024 Office consultation new/estab patient 80 min Genia Correia MD Work Phone: [facility] at [facility] Comment on above: 21 weeks gestation o f (Primary Dx); 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, single or unspecified fetus; History of intrauterine growth restriction in prior , currently ; History of oligohydramnios; with history of section, antepartum; History of gestational hypertension; Low lying placenta, antepartum Start: 08-27-2024 End: 08-27-2024 ambulatory [facility] Start: 08-12-2024 End: 08-12-2024 Patient encounter procedure [facility] Delivery Work Phone: Start: 08-12-2024 End: 08-12-2024 ambulatory NON STAFF [facility] Work Phone: Start: 08-12-2024 End: 08-12-2024 Emergency department patient visit [facility]gency [facility] Work Phone: Start: 08-12-2024 End: 08-13-2024 External Result Encounter Hever A Visci DO Work Phone: [facility] External [facility] Unsolicited Start: 08-12-2024 End: 08-13-2024 External Result Encounter Hever A Visci DO Work Phone: [facility] External [facility] Unsolicited Start: 08-07-2024 End: 08-13-2024 Chart abstracting Genia Correia MD Work Phone: [facility] Start: 08-05-2024 End: 08-05-2024 Bamboo flowsheet Andrey Sandhya DO Work Phone: [facility] Start: 08-05-2024 End: 08-06-2024 Bamboo flowsheet Andrey Sandhya DO Work Phone: [facility] Start: 08-05-2024 End: 08-06-2024 External Result Encounter Andrey Sandhya DO Work Phone: [facility] External [facility] Unsolicited Start: 08-05-2024 End: 08-05-2024 Office outpatient visit 15 minutes Andrey Sandhya DO Work Phone: [facility] Comment on above: 18 weeks gestation o f ; Second trimester ; Well woman exam with routine gynecological exam; Vaginal discharge; Exposure to STD Start: 08-05-2024 End: 08-05-2024 Patient encounter procedure Andrey Sandhya DO Work Phone: [facility] Start: 08-05-2024 End: 08-05-2024 ambulatory ANDREY SANDHYA Not Available Start: 07-27-2024 End: 07-27-2024 Emergency department patient visit Earline Hernandez [facility] Start: 07-23-2024 End: 07-24-2024 Clinisync Result Encounter Andrey Sandhya DO Work Phone: [facility] External Department Unsolicited Start: 07-23-2024 End: 07-24-2024 Clinisync Result Encounter Andrey Sandhya DO Work Phone: [facility] External [facility] Unsolicited Start: 07-14-2024 End: 07-14-2024 ambulatory ANDREY SANDHYA Not Available Start: 07-14-2024 End: 07-14-2024 Office outpatient visit 15 minutes Andrey Sandhya DO Work Phone: [facility] Comment on above: Third trimester preg tyrese; First trimester ; 15 weeks gestation of ; Rh negative state in antepartum period, unspecified trimester; Herpes simplex; Urinary tract infection without hematuria, site unspecified Start: 07-14-2024 End: 07-14-2024 Bamboo flowsheet Andrey Sandhya DO Work Phone: [facility] Start: 07-14-2024 End: 07-14-2024 Bamboo flowsheet Andrey Sandhya DO Work Phone: [facility] Start: 07-09-2024 End: 07-09-2024 ambulatory Itzel Elliott Facility:[facility] Start: 06-12-2024 End: 06-12-2024 Clinisync Result Encounter Andrey Sandhya DO Work Phone: [facility] External [facility] Unsolicited Start: 06-12-2024 End: 06-12-2024 Clinisync Result Encounter Andrey Sandhya DO Work Phone: [facility] External [facility] Unsolicited Start: 06-12-2024 End: 06-12-2024 Office outpatient visit 5 minutes [facility] Sandhya Nurse [facility] Comment on above: GA: 10w4d Start: 06-12-2024 End: 06-12-2024 ambulatory SUSAN PATTERSON Not Available Start: 06-04-2024 End: 06-04-2024 Emergency department patient visit Earline Bond [facility] Start: 05-28-2024 End: 05-28-2024 Emergency department patient visit Adolph Alejo [facility] Start: 05-22-2024 End: 05-22-2024 Clinisync Result Encounter Andrey Sandhya DO Work Phone: [facility] External [facility] Unsolicited Start: 05-22-2024 End: 05-22-2024 Clinisync Result Encounter Andrey Sandhya DO Work Phone: [facility] External Department Unsolicited Start: 05-20-2024 End: 05-20-2024 Clinisync Result Encounter Susan DAMON Work Phone: [facility] External [facility] Unsolicited Start: 05-20-2024 End: 05-20-2024 Clinisync Result Encounter Susan DAMON Work Phone: [facility] External [facility] Unsolicited Start: 05-14-2024 End: 05-14-2024 Patient encounter procedure Ramona Monsivais MD Work Phone: [facility] Work Phone: Start: 05-14-2024 End: 05-14-2024 ambulatory Ramona Monsivais MD Work Phone: [facility] Work Phone: Start: 05-07-2024 End: 05-07-2024 ambulatory SUSAN PATTERSON Not Available Start: 05-07-2024 End: 05-07-2024 Office outpatient new 30 minutes Susan DAMON Work Phone: [facility] Comment on above: Yeast infection; Subacute vaginitis; examination or test, positive result Start: 05-07-2024 End: 05-07-2024 Bamboo flowsheet Susan DAMON Work Phone: [facility] Start: 05-07-2024 End: 05-07-2024 Bamboo flowsheet Susan DAMON Work Phone: [facility] Start: 05-05-2024 End: 05-05-2024 ambulatory Kwan Batista Facility:[facility] Start: 05-05-2024 End: 05-05-2024 Lab Drop off Kwan Batista [facility] Start: 04-29-2024 End: 04-29-2024 Patient encounter procedure Ramona Monsivais MD Work Phone: [facility] Work Phone: Start: 04-29-2024 End: 04-29-2024 ambulatory Ramona Monsivais MD Work Phone: [facility] Work Phone: Start: 04-23-2024 End: 04-23-2024 ambulatory Camryn Barros Facility:[facility] Start: 04-23-2024 End: 04-23-2024 Patient encounter procedure Venus Subramanian [facility] Start: 04-09-2024 End: 04-09-2024 ambulatory Camryn C Isiaidee Facility:[facility] Start: 04-09-2024 End: 04-09-2024 Patient encounter procedure Camryn Bishop Isiaidee [facility] Start: 03-15-2024 End: 03-15-2024 ambulatory NON STAFF Facility:[facility] Start: 03-15-2024 End: 03-15-2024 Departed Referred Ramona Monsivais MD Work Phone: [facility] Path Spec [facility] Start: 03-14-2024 End: 03-14-2024 ambulatory Jewell L. Nicolás Facility:[facility] Start: 03-14-2024 End: 03-14-2024 Patient encounter procedure Jewell L. Nicolás [facility] [place] Start: 03-04-2024 End: 03-04-2024 ambulatory Jewell L. Nicolás Facility:[facility] Start: 03-04-2024 End: 03-04-2024 Patient encounter procedure Jewell L. Nicolás [facility] [place] Start: 02-29-2024 End: 02-29-2024 ambulatory Jewell L. Nicolás Facility:[facility] Start: 02-29-2024 End: 02-29-2024 Off-Site Jewell L. Nicolás [facility] [place] Start: 02-25-2024 Non-patient / Non-visit Yudelka Monsivais MD Work Phone: [facility] Work Phone: Start: 01-08-2024 End: 01-08-2024 ambulatory HYDROLOGIC ENGINEER MO BARNARD Facility:[facility] [place] Start: 10-16-2023 End: 10-17-2023 Pre-admission assessment Jewell Monzon [facility] Start: 10-09-2023 End: 10-09-2023 ambulatory MSN, CELLULAR TOWER CLIMBER-HYDROLOGIC ENGINEER Jewell Monzon Facility: [place] Start: 10-09-2023 End: 10-09-2023 Patient encounter procedure Jewell Monzon [facility] [place] Start: 10-08-2023 End: 10-08-2023 ambulatory [facility] Start: 10-08-2023 End: 10-08-2023 [facility] Start: 10-06-2023 End: 10-06-2023 Emergency department patient visit Andrea Faustin [facility] Start: 08-09-2023 End: 08-09-2023 ambulatory Smitha Wetzel Facility: [place] Start: 08-09-2023 End: 08-09-2023 Patient encounter procedure Smitha Wetzel [facility] [place] Start: 05-15-2023 End: 05-15-2023 ambulatory MSN, CELLULAR TOWER CLIMBER-HYDROLOGIC ENGINEER Jewell Monzon Facility: [place] Start: 05-15-2023 End: 05-15-2023 Patient encounter procedure Jewell Monzon [facility] [place] Start: 05-10-2023 End: 06-11-2023 ambulatory MSN, CELLULAR TOWER CLIMBER-HYDROLOGIC ENGINEER Jewell Monzon Facility:CD:[id number] Start: 05-08-2023 End: 05-09-2023 ambulatory Jamie Steven Facility:[facility] Start: 05-08-2023 End: 05-09-2023 Observation Jamie Steven [facility] Start: 05-02-2023 End: 05-02-2023 Emergency department patient visit Adolph Aleman [facility] Start: 04-23-2023 End: 04-23-2023 Emergency department patient visit Andrea HerreraGale Faustin [facility] Start: 04-04-2023 End: 04-04-2023 ambulatory MSN, CELLULAR TOWER CLIMBER-HYDROLOGIC ENGINEER Jewell Monzon Facility:[facility] Start: 03-27-2023 End: 03-27-2023 ambulatory MSN, CELLULAR TOWER CLIMBER-HYDROLOGIC ENGINEER Jewell Monzon Facility:[facility] Start: 03-27-2023 End: 03-27-2023 Patient encounter procedure Jewell Monzon [facility] [place] Start: 02-02-2023 End: 02-03-2023 Emergency department patient visit Earline Bond [facility] Start: 10-16-2022 End: 10-16-2022 Patient encounter procedure Jewell Monzon [facility] [place] Start: 09-08-2022 End: 09-08-2022 Patient encounter procedure MARCIA JUAREZ [facility] [place] Start: 07-10-2022 End: 07-10-2022 Patient encounter procedure MARCIA JUAREZ [facility] [place] Start: 03-20-2022 Letter encounter Ellie pollardmelo Start: 03-14-2022 End: 03-14-2022 Follow-up encounter Oral Surgery User Experience Lead Work Phone: [facility] Oral Surgery Start: 03-14-2022 End: 03-14-2022 Telemedicine consultation with patient Oral User Experience Lead Work Phone: [facility] Oral Surgery Comment on above: Post-operative state (Primary Dx) Start: 03-14-2022 End: 03-15-2022 ambulatory UNKNOWN PROVIDER [facility] Start: 03-02-2022 End: 03-02-2022 ambulatory CANDY MORA [facility] Start: 03-02-2022 End: 03-02-2022 Subsequent hospital visit by physician Candy Mora DDS Work Phone: [facility] OR Comment on above: 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) Start: 02-23-2022 Telephone encounter Ashley hurd RN [facility] Pre Surgical Evaluation Comment on above: Pre-surgical Evaluat ion ( Pre-op COVID testing not needed ) Start: 02-19-2022 End: 02-19-2022 Emergency department patient visit Andrea Faustin [facility] Start: 02-16-2022 ambulatory [facility] Start: 02-16-2022 Encounter for other preprocedural examination UNKNOWN PROVIDER The [facility] Start: 02-15-2022 End: 02-15-2022 Nursing evaluation of patient and [facility] Comment on above: Preop examination (P rimary Dx) Start: 02-15-2022 End: 02-15-2022 [facility]procedural examination [facility] Start: 02-15-2022 Telephone encounter Katherine Thrasher RN Work Phone: [facility] Pre Surgical Evaluation Comment on above: Pre-surgical Evaluat ion (Not available/) Start: 02-04-2022 End: 02-04-2022 Emergency department patient visit Reece Yip [facility] Start: 01-30-2022 Letter encounter [facility] eleuterio Financial Clearance Start: 01-16-2022 End: 01-18-2022 ambulatory UNKNOWN PROVIDER [facility] Start: 01-16-2022 End: 01-16-2022 Patient encounter procedure Candy Mora DDS Work Phone: [facility] Oral Surgery Comment on above: 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); Body mass index (BMI) 33.0-33.9, adult Start: 12-27-2021 ambulatory NAN MCGRAW Facility: [facility] Start: 12-19-2021 Letter encounter Ellie pollard Start: 12-15-2021 End: 12-15-2021 ambulatory NAN MCGRAW Facility:[facility] Start: 11-09-2021 ambulatory NAN MCGRAW Facility: [facility] Start: 09-29-2021 End: 10-03-2021 Patient encounter procedure Hakan Marquez DDS Work Phone: [facility] Comment on above: Caries (Primary Dx) Start: 09-29-2021 End: 10-03-2021 ambulatory UNKNOWN PROVIDER [facility] Start: 09-28-2021 End: 09-30-2021 ambulatory UNKNOWN PROVIDER [facility] Start: 09-28-2021 End: 09-30-2021 Patient encounter procedure Hakan Marquez DDS Work Phone: [facility] Start: 08-27-2021 End: 08-27-2021 Emergency department patient visit Lane Berger [facility] Start: 04-19-[address] DOCTOR MATHEWS Facility :[facility] Start: 04-12-2021 End: 04-12-[address] ANDREY ARTHUR Facility:[facility] Start: 04-08-2021 End: 04-08-2021 ambulatory AMBER LUNSFORD Facility:[facility] Start: 04-06-2021 End: 07-05-2021 Patient encounter procedure shawna Allen [facility] Start: 04-06-[address] ANDREY ARTHUR [...] Lissy Allen [facility] Start: 12-27-2018 End: 12-27-2018 Subsequent hospital visit by physician Raymond Moyer [facility] Procedures Date Procedure Procedure Detail Performing Clinician Start: 10-20-2024 Antibody screen Andrey pierre Comment on above: Result Comment: PERF ORMED BY: [facility] [address] [place] [address] PATHOLOGIST TANK OPERATOR MARQUITA LICONA M.D. Start: 10-02-2024 Blood count complete auto&auto difrntl wbc Not In System Ref Prov Start: 10-02-2024 GLUCOSE TOLERANCE, 1 HR 50GM LOAD ( PATIENTS ONLY) Not In System Ref Prov Start: 10-02-2024 ANTIBODY ID Genia Correia MD Work Phone: Start: 10-02-2024 ANTIBODY TITER Genia Correia MD Work Phone: Start: 10-02-2024 TYPE AND SCREEN Jodi Correia MD Work Phone: Start: 10-02-2024 ALL CBC WITH AUTO DIFF Andrey Sandhya DO Work Phone: Start: 10-02-2024 Urnls dip stick/tabl et rgnt non-auto w/o micrscp Susan DAMON Work Phone: Start: 09-15-2024 Urnls dip stick/tabl et rgnt non-auto w/o micrscp Andrey Sandhya DO Work Phone: Start: 09-02-2024 Urnls dip stick/tabl et rgnt non-auto w/o micrscp Susan DAMON Work Phone: Start: 08-27-2024 Antibody screen Jodi Correia MD Work Phone: Start: 08-27-2024 Antibody screen ANDREY Daniella DANTE Comment on above: Performed By: #### T ND #### [facility] ([facility]) [address] [place] [address] VIR Start: 08-12-2024 Culture bacterial quanttative colony count urine Hever Hernandez Visci DO Work Phone: Start: 08-12-2024 OB URINE DRUG SCREEN (NO THC) Hever Hernandez Visci DO Work Phone: Start: 08-12-2024 Urnls dip stick/tabl et rgnt auto w/o microscopy Hever Mary Visci DO Work Phone: Start: 08-12-2024 Urine culture Start: 08-05-2024 RECURRENT VAGINITIS (HTRX) Andrey Sandhya DO Work Phone: Start: 08-05-2024 Urnls dip stick/tabl et rgnt non-auto w/o micrscp Andrey Sandhya DO Work Phone: Start: 07-23-2024 ALL MISCELLANEOUS TEST Andrey Sandhya DO Work Phone: Start: 07-14-2024 Urnls dip stick/tabl et rgnt non-auto w/o micrscp Andrey Sandhya DO Work Phone: Start: 06-12-2024 BOX TEST Andrey Fazi o DO Work Phone: Start: 06-12-2024 Antibody rubella Not In System Ref Prov Start: 06-12-2024 Antibody screen Jodi Correia MD Work Phone: Start: 06-12-2024 Basic metabolic pane l calcium total Andrey R Sanhdya DO Work Phone: Start: 06-12-2024 Drug scrn 1+ class nonchromo Not In System Ref Prov Start: 06-12-2024 HIV 1&2 AB/AG SCREEN (P24 AG) Not In System Ref Prov Start: 06-12-2024 Iaad ia hepatitis b surface antigen Not In System Ref Prov Start: 06-12-2024 SYPHILIS TOTAL(UNKNO WN SYPHILIS STATUS) Not In System Ref Prov Start: 06-12-2024 TYPE AND SCREEN Not In System Ref Prov Start: 06-12-2024 Urnls dip stick/tabl et rgnt non-auto w/o micrscp Andrey Sandhya DO Work Phone: Start: 05-22-2024 [facility] PREG QUANT HCG Core y Sandhya DO Work Phone: Start: 05-20-2024 [facility] PREG QUANT HCG Susan DAMON Work Phone: Start: 03-15-2024 Urine culture Ramona Monsivais MD Work Phone: Start: 05-09-2023 Laparoscopic appendectomy Jamie Steven Start: 03-02-2022 Urine test visual color cmprsn meths Bhavesh Nisha DMD Work Phone: Start: 06-13-2019 Antibody rubella Not In System Ref Prov Start: 06-13-2019 Antibody screen Jodi Correia MD Work Phone: Start: 06-13-2019 HIV 1&2 AB/AG SCREEN (P24 AG) Not In System Ref Prov Start: 06-13-2019 Iaad ia hepatitis b surface antigen Not In System Ref Prov Start: 06-13-2019 SYPHILIS TOTAL(UNKNO WN SYPHILIS STATUS) Not In System Ref Prov Start: 06-13-2019 TYPE AND SCREEN Not In System Ref Prov section Lissy Allen section Lissy Allen Fracture of mandible , closed (disorder) Lissy Allen History of appendectomy S/P appendectomy Jewell Monzon Plan of Treatment Date Care Activity Detail Author Start: 2048 Shingles (RZV) Vacci ne (1 of 2) Shingles (RZV) Vaccine (1 of 2) [facility] Start: 01-08-2027 DTaP,Tdap and Td Vaccines (6 - Td or Tdap) DTaP,Tdap and Td Vaccines (6 - Td or Tdap) [facility] Start: 01-08-2027 Tetanus vaccination Tetanus (T d or Tdap) Booster [facility] Start: 08-28-2025 End: 08-28-2025 US MFM with or without consult US [facility] with or without consult Imaging Routine 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, single or unspecified fetus History of intrauterine growth restriction in prior , currently with history of section, antepartum Expected: 08/28/2025 (Approximate), Expires: 08/28/2025 [facility] Work Phone: Comment on above: Expected: 08/28/2025 (Approximate), Expires: 08/28/2025 Start: 08-27-2025 Adult BMI Screening Adult BMI Screen ing [facility] Start: 08-27-2025 Tobacco Screening Tobacco Screening [facility] Start: 11-17-2024 Influenza vaccination N [facility] Start: 11-10-2024 End: 11-10-2024 Patient encounter procedure [facility] US Imaging Start: 11-06-2024 End: 11-06-2024 Patient encounter procedure 11/06/2024 3:15 PM EDT Appointment [facility] [place] [address] [facility] [address] [place] [address] [facility] [place] Start: 10-30-2024 End: 10-30-2025 Transferrin [Mass/volume] in Serum or Plasma Transferrin Lab Routine Other iron deficiency anemia Expected: 10/30/2024 (Approximate), Expires: 10/30/2025 [facility] Comment on above: Expected: 10/30/2024 (Approximate), Expires: 10/30/2025 Start: 10-30-2024 End: 05-02-2025 US biophysical profile w non stress test US biophysical profile w non stress test Imaging Routine 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HHS-HCC) Rh negative state in antepartum period, unspecified trimester (HHS-HCC) Other iron deficiency anemia Expected: 10/30/2024 (Approximate), Expires: 05/02/2025 [facility] Comment on above: Expected: 10/30/2024 (Approximate), Expires: 05/02/2025 Start: 10-30-2024 End: 10-30-2024 Patient encounter procedure 10/30/2024 8:30 AM EDT Appointment [facility] [place] [address] [address] [facility] [place] Start: 10-20-2024 [facility] Start: 10-16-2024 End: 10-16-2024 Patient encounter procedure 10/16/2024 3:15 PM EDT Appointment [facility] [place] [address] [facility] [address] [place] [address] [facility] Start: 10-09-2024 End: 10-09-2024 Patient encounter procedure 10/09/2024 3:15 PM EDT Appointment [facility] [place] [address] [facility] [address] [place] [address] [facility] [place] Start: 10-02-2024 End: 10-02-2024 Patient encounter procedure 10/02/2024 3:15 PM EDT Appointment [facility] [place] [address] [facility] [address] [place] [address] [facility] [place] Start: 10-02-2024 End: 10-02-2025 Antibody titer Antibody titer Lab Routine 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HHS-HCC) Expected: 10/02/2024 (Approximate), Expires: 10/02/2025 [facility] Comment on above: Expected: 10/02/2024 (Approximate), Expires: 10/02/2025 Start: 09-29-2024 End: 09-29-2024 Patient encounter procedure 09/29/2024 10:30 AM EDT Routine [facility] [address] [place] [id number] Susan Patterson PA [address] [place] [address] [facility] Start: 09-26-2024 End: 09-26-2024 Patient encounter procedure [facility] US Imaging Start: 09-18-2024 End: 09-18-2024 Patient encounter procedure 09/18/2024 3:15 PM EDT Appointment [facility] [place] [address] [facility] [address] [place] [phone] [facility] [place] Start: 09-15-2024 End: 09-15-2025 CBC panel - Blood by Automated count CBC Lab Routine Diabetes mellitus screening Expected: 09/15/2024 (Approximate), Expires: 09/15/2025 [facility] Work Phone: Comment on above: Expected: 09/15/2024 (Approximate), Expires: 09/15/2025 Start: 09-15-2024 End: 09-15-2025 Measurement of glucose 1 hour after glucose challenge for glucose tolerance test Glucose tolerance, 1 hour Lab Routine Diabetes mellitus screening Expected: 09/15/2024 (Approximate), Expires: 09/15/2025 [facility] Comment on above: Expected: 09/15/2024 (Approximate), Expires: 09/15/2025 Start: 09-12-2024 End: 09-12-2024 Patient encounter procedure 09/12/2024 3:30 PM EDT Appointment [facility] US Imaging [address] [place] [address] Genia Correia MD [address], [address] [place] [id number] [facility] Imaging Start: 09-11-2024 End: 09-11-2024 Patient encounter procedure 09/11/2024 3:15 PM EDT Appointment [facility] [place] [address] [place] [phone] [facility] [place] Start: 09-04-2024 End: 09-04-2024 Patient encounter procedure 09/04/2024 3:00 PM EDT Appointment [facility] Imaging [address] [facility] [place] [address] [facility] Start: 09-02-2024 End: 09-02-2024 Patient encounter procedure 09/02/2024 10:30 AM EDT Routine [facility] [address] [place] [address] Susan Patterson PA [address] [facility] [address] [place] [address] [facility] Start: 08-27-2024 End: 08-27-2024 Patient encounter procedure [facility] Start: 08-12-2024 [facility] Start: 08-12-2024 Urine culture [facility] Start: 08-12-2024 Hospital admission [facility] Start: 08-12-2024 Bacteria identified in Urine by Culture [facility] Work Phone: Start: 08-05-2024 End: 09-05-2024 Alpha fetoprotein, maternal Alpha fetoprotein, maternal Lab Routine 18 weeks gestation of Second trimester Expected: 08/05/2024 (Approximate), Expires: 09/05/2024 [facility] Healthcare Comment on above: Expected: 08/05/2024 (Approximate), Expires: 09/05/2024 Start: 08-05-2024 End: 08-05-2024 Patient encounter procedure [facility] Comment on above: Arrived Start: 07-14-2024 End: 07-14-2024 Patient encounter procedure 07/14/2024 2:10 PM EDT Routine [facility] [address] [place] [address] Andrey Arthur, DO [address] [facility] [place] [address] [facility] Start: 06-12-2024 End: 06-12-2025 ABO/Rh ABO/Rh Lab Routine Missed menses , unspecified gestational age Expected: 06/12/2024 (Approximate), Expires: 06/12/2025 [facility] Comment on above: Expected: 06/12/2024 (Approximate), Expires: 06/12/2025 Start: 06-12-2024 End: 06-12-2025 Blood type and Indirect antibody screen panel - Blood Type and screen Lab Routine Missed menses , unspecified gestational age Expected: 06/12/2024 (Approximate), Expires: 06/12/2025 [facility] Comment on above: Expected: 06/12/2024 (Approximate), Expires: 06/12/2025 Start: 06-12-2024 End: 06-12-2025 Drugs of abuse panel - Urine by Screen method Rapid drug screen, urine Lab Routine , unspecified gestational age Encounter for supervision of normal first in first trimester Expected: 06/12/2024 (Approximate), Expires: 06/12/2025 [facility] Comment on above: Expected: 06/12/2024 (Approximate), Expires: 06/12/2025 Start: 06-04-2024 End: 06-04-2025 US Pelvis transvaginal US OB transvaginal Imaging Routine Missed menses Expected: 06/04/2024, Expires: 06/04/2025 [facility] Work Phone: Comment on above: Expected: 06/04/2024 , Expires: 06/04/2025 Start: 11-18-2023 COVID-19 Vaccine ( season) COVID-19 Vaccine ( season) [facility] Start: 11-18-2023 Influenza vaccination Influenza Vacc ine (#1) [facility] Start: 08-18-2023 Adult BMI Screening Adult BMI Screen ing [facility] Start: 03-15-2022 End: 03-15-2022 Telemedicine consultation with patient 03/15/2022 Telemedicine Oral Surgery Candy Mora DDS [address] [place] [address] [facility] Oral Surgery Start: 03-14-2022 End: 03-14-2022 Telemedicine consultation with patient 03/14/2022 Telemedicine Oral Surgery [facility] Oral Surgery Start: 03-02-2022 End: 03-02-2022 EXTRACTION, TOOTH EXTRACTION, TOOTH Routine scheduled 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 03/02/2022 1:[address] Start: 03-02-2022 End: 03-02-2022 Admission to same day surgery center 03/02/2022 Surgery Ambulatory Surgery Candy Mora DDS [address] [place] [id number] EXTRACTION, TOOTH - #2, 15, 18, 19, 20, [address] [facility] [place] Comment on above: EXTRACTION, TOOTH - #2, 15, 18, 19, 20, 30 Start: 03-02-2022 End: 03-02-2022 EXTRACTION, TOOTH EXTRACTION, TOOTH Routine scheduled 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 03/02/2022 11:[address] Start: 03-02-2022 Subsequent hospital visit by physician 03/02/2022 Hospital Encounter Ambulatory Surgery Candy Mora DDS [address] [place] [id number] [facility] [place] Start: 03-02-2022 End: 03-02-2022 Admission to same day surgery center 03/02/2022 Surgery Ambulatory Surgery Candy Mora DDS [address] [place] [address] EXTRACTION, TOOTH - #2, 15, 18, 19, 20, 30 [facility] Ambulatory Surgery Comment on above: EXTRACTION, TOOTH - #2, 15, 18, 19, 20, 30 Start: 03-02-2022 End: 03-02-2022 EXTRACTION, TOOTH EXTRACTION, TOOTH Routine scheduled 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 03/02/2022 9:51 AM EST Ambulatory Surgery Center Start: 03-02-2022 Subsequent hospital visit by physician 03/02/2022 Hospital Encounter Ambulatory Surgery Candy Mora, DDS [address] [place] [address] [facility] Ambulatory Surgery Start: 02-15-2022 End: 02-15-2022 Nursing evaluation of patient and report 02/15/2022 Nurse Visit Presurgical Evaluation [facility] Pre Surgical Evaluation Start: 01-16-2022 End: 01-16-2022 Patient encounter procedure 01/16/2022 Office Visit Oral Surgery Candy Mora, DDS [address] [place] [address] [facility] Oral Surgery Start: 12-17-2021 Influenza vaccination Influenza Vacc ine (#1) [facility] Start: 10-15-2020 COVID-19 Vaccine (2 - Booster for Ilda series) COVID-19 Vaccine (2 - Booster for Ilda series) [facility] Start: 06-16-2019 Screening for malign ant neoplasm of cervix Pap Smear [facility] Start: 01-03-2019 End: 01-03-2019 Appointment 01/03/2019 Appointment Psychiatry Noreen Jacobo [facility] Start: 11-17-2018 Influenza vaccination Flu vaccine (# 1) [place], [place] Start: 2017 DTaP/Tdap/Td vaccine (1 - Tdap) DTaP/Tdap/Td vaccine (1 - Tdap) [place], [place] Start: 2016 Adult BMI Follow Up Plan Adult BMI Follow Up Plan [facility] Start: 2016 Hepatitis C screening Hepatitis C An tibody [facility] Start: 2016 Screening for Chlamy kentrell trachomatis STI Screening (Age 18-24) [facility] Start: 2014 Chlamydia screen Chlamydia screen [place], [place] Start: 2014 Meningococcal B (Bexsero,OMV) Vaccine (Optional,16-23 years) (#1) Meningococcal B (Bexsero,OMV) Vaccine (Optional,16-23 years) (#1) [facility] Start: 2013 HIV screen HIV screen [place], [place] Start: 2013 HIV screening HIV Test [facility] Start: 2013 HPV vaccine (1 - Fem shayna 3-dose series) HPV vaccine (1 - Female 3-dose series) [place], [place] Start: 06-16-2011 Varicella Vaccine (1 of 2 - 13+ 2-dose series) Varicella Vaccine (1 of 2 - 13+ 2-dose series) [place], [place] Start: 2010 Depression Screening Depression Scre ening [facility] Start: 2010 Tobacco Screening Tobacco Screening [facility] ABO/Rh ABO/Rh Lab Routi ne 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[facility] [facility]) Ordered: 10/02/2024 [facility] Comment on above: Ordered: 10/02/2024 End: 10-07-2025 Antibody ID Antibody ID Blood Bank Routine 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, single or unspecified fetus 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, single or unspecified fetus every 2 weeks for 6 Occurrences starting 10/07/2024 until 10/07/2025, 1 completed [facility] Comment on above: every 2 weeks for 6 Occurrences starting 10/07/2024 until 10/07/2025, 1 completed End: 08-27-2025 Antibody titer Antibody titer Blood Bank Routine 21 weeks gestation of 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, single or unspecified fetus 1 Occurrences starting 08/27/2024 until 08/27/2025 [email or web address] Work Phone: Comment on above: 1 Occurrences starti ng 08/27/2024 until 08/27/2025 End: 10-07-2025 Antibody titer Antibody titer Blood Bank Routine 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, single or unspecified fetus 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, single or unspecified fetus every 2 weeks for 6 Occurrences starting 10/07/2024 until 10/07/2025, 1 completed [facility] Work Phone: Comment on above: every 2 weeks for 6 Occurrences starting 10/07/2024 until 10/07/2025, 1 completed Bacteria identified in Urine by Culture Urine culture Microbiology Routine Missed menses Ordered: 06/12/2024 [facility] Comment on above: Ordered: 06/12/2024 Blood type and Indir ect antibody screen panel - Blood Type and screen Lab Routine 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[facility]) Ordered: 10/02/2024 [facility] [employer] Work Phone: Comment on above: Ordered: 10/02/2024 CBC W Auto Different ial panel - Blood CBC and differential Lab Routine Missed menses , unspecified gestational age Ordered: 06/12/2024 [facility] Comment on above: Ordered: 06/12/2024 CHLAMYDIA TRACHOMATI S (GENITO/STI) CHLAMYDIA TRACHOMATIS (GENITO/STI) Lab Routine Exposure to STD Ordered: 08/05/2024 [facility] Comment on above: Ordered: 08/05/2024 Cytology Cervical or vaginal smear or scraping study Pap Smear Pathology and Cytology Routine Well woman exam with routine gynecological exam Ordered: 08/05/2024 [facility] Comment on above: Ordered: 08/05/2024 extraction, erupted tooth or exposed root (elevation and/or forceps removal) EXTRACTION ERUPTED TOOTH/EXR Procedures Routine 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 Ordered: 03/02/2022 [employer] Work Phone: Comment on above: Ordered: 03/02/2022 EXTRACTION, TOOTH EXTRACTION, TO OTH Routine scheduled 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 [facility] Ferritin [Mass/volum e] in Serum or Plasma Ferritin Lab Routine Other iron deficiency anemia Ordered: 10/30/2024 [facility] [employer] Work Phone: Comment on above: Ordered: 10/30/2024 End: 05-07-2025 hCG, quantitative, hCG, quantitative, Lab Routine examination or test, positive result 5 Occurrences starting 05/07/2024 until 05/07/2025 [facility] Work Phone: Comment on above: 5 Occurrences starti ng 05/07/2024 until 05/07/2025 Hemoglobin A1c/Hemoglobin.total in Blood Hemoglobin A1c Lab Routine Missed menses , unspecified gestational age Ordered: 06/12/2024 [facility] Comment on above: Ordered: 06/12/2024 Hepatitis B virus surface Ag [Presence] in Serum or Plasma by Immunoassay Hepatitis B surface antigen Lab Routine Missed menses , unspecified gestational age Ordered: 06/12/2024 [facility] Comment on above: Ordered: 06/12/2024 Hepatitis C virus Ab [Presence] in Serum or Plasma by Immunoassay Hepatitis C antibody Lab Routine Missed menses , unspecified gestational age Ordered: 06/12/2024 [facility] Comment on above: Ordered: 06/12/2024 HIV-1/HIV-2 antigen/antibody combination immunoassay HIV-1 and HIV-2 antibodies Lab Routine Missed menses , unspecified gestational age Ordered: 06/12/2024 [facility] Comment on above: Ordered: 06/12/2024 Neisseria gonorrhoea e DNA [Presence] in Unspecified specimen by ELYSIA with probe detection Neisseria gonorrhea DNA probe, direct Lab Routine Exposure to STD Ordered: 08/05/2024 [facility] Comment on above: Ordered: 08/05/2024 Patient Education Antepartum Dis charge Instructions ([facility] Work Phone: Patient referral [facility] Work Phone: Reagin Ab [Presence] in Serum by RPR RPR Lab Routine Missed menses , unspecified gestational age Ordered: 06/12/2024 [facility] Comment on above: Ordered: 06/12/2024 Rubella antibody, IgG Rubella an tibody, IgG Lab Routine Missed menses , unspecified gestational age Ordered: 06/12/2024 [facility] Comment on above: Ordered: 06/12/2024 SURESWAB(R) ADVANCED VAGINITIS PLUS, TMA SURESWAB(R) ADVANCED VAGINITIS PLUS, TMA Pathology and Cytology Routine Vaginal discharge Ordered: 08/05/2024 [facility] Work Phone: Comment on above: Ordered: 08/05/2024 End: 10-07-2025 Type and screen(includes indirect chin) Type and screen(includes indirect chin) Blood Bank Routine 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, single or unspecified fetus 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, single or unspecified fetus every 2 weeks for 6 Occurrences starting 10/07/2024 until 10/07/2025 [employer] Work Phone: Comment on above: every 2 weeks for 6 Occurrences starting 10/07/2024 until 10/07/2025 End: 08-27-2025 Unlisted Lab Test Unlisted Lab Test Lab Routine 21 weeks gestation of 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, single or unspecified fetus History of intrauterine growth restriction in prior , currently History of oligohydramnios 1 Occurrences starting 08/27/2024 until 08/27/20[facility]: 1 Occurrences starti ng 08/27/2024 until 08/27/2025 US Pelvis transvaginal US OB tra nsvaginal Imaging Routine Missed menses 06/12/2024 1:54 PM EDT [facility] Immunizations Immunization Date Immunization Notes Care Provider Wilver rodrigues 08-20-2020 [facility] SARS-COV-2 (COVID-19) vaccine, vector non-replicating, recombinant spike protein-Ad26, preservative free, 0.5 mL (ZZK=979) Hakan Marquez [employer] Work Phone: [facility] Comment on above: Result Comment: 2022: TPVAL 01-23-2020 RHO(D) immune globul in- IV or IM Genia Correia MD Work Phone: [facility] 01-08-2017 tetanus toxoid, redu allegra diphtheria toxoid, and acellular pertussis vaccine, adsorbed; Translations: [Adacel (Tdap)] [facility] 05-10-2015 hepatitis A vaccine, pediatric/adolescent dosage, 2 dose schedule Hakan Al-Mashni DDS Work Phone: [facility] 05-10-2015 hepatitis A vaccine, unspecified formulation MARCIA SIDELL [facility] 05-10-2015 HPV, unspecified formulation MARCIA SIDELL [facility] 05-10-2015 human papilloma viru s vaccine, quadrivalent Hakan Al-Sandyi DDS Work Phone: [facility] 10-30-2014 hepatitis A vaccine, pediatric/adolescent dosage, 2 dose schedule Hakanzoila Benitezi DDS Work Phone: [facility] 10-30-2014 hepatitis A vaccine, unspecified formulation MARCIA SIDELL [facility] 10-30-2014 HPV, unspecified formulation MARCIA SIDELL [facility] 10-30-2014 human papilloma viru s vaccine, quadrivalent Hakan Yury-Kikahni DDS Work Phone: [facility] 10-30-2014 measles, mumps and rubella virus vaccine Hakanzoila Benitezi DDS Work Phone: [facility] 10-30-2014 meningococcal ACWY vaccine, unspecified formulation MARCIA SIDELL [facility] 10-30-2014 meningococcal polysaccharide (groups A, C, Y and W-135) diphtheria toxoid conjugate vaccine (MCV4P) Hakanzoila Benitezi DDS Work Phone: [facility] 11-07-2010 HPV, unspecified formulation Hakan Al-Sandyi DDS Work Phone: [facility] 11-07-2010 tetanus toxoid, redu allegra diphtheria toxoid, and acellular pertussis vaccine, adsorbed Hakan MeJakei DDS Work Phone: [facility] 12-16-1999 diphtheria, tetanus toxoids and acellular pertussis vaccine, unspecified formulation Hakan Al-Kikahni DDS Work Phone: [facility] 12-16-1999 DTaP, unspecified formulation MARCIA SIDELL [facility] 12-16-1999 pneumococcal conjuga te vaccine, 13 valent MARCIA SIDELL [facility] 12-16-1999 pneumococcal conjuga te vaccine, 7 valent Hakan Al-Mashni DDS Work Phone: [facility] 09-14-1999 diphtheria, tetanus toxoids and acellular pertussis vaccine, unspecified formulation Hakan Al-Kikahni DDS Work Phone: [facility] 09-14-1999 DTaP, unspecified formulation MARCIA SIDELL [facility] 09-14-1999 haemophilus influenz ae type b vaccine, PRP-OMP conjugate Hakan Al-Sandyi DDS Work Phone: [facility] 09-14-1999 hepatitis B vaccine, pediatric or pediatric/adolescent dosage Hakan Al-Sandyi DDS Work Phone: [facility] 09-14-1999 measles, mumps and rubella virus vaccine Hakan Yury-Kikahni DDS Work Phone: [facility] 09-14-1999 poliovirus vaccine, inactivated Hakan -Sandyi DDS Work Phone: [facility] 09-14-1999 poliovirus vaccine, unspecified formulation MARCIA SIDELL [facility] 09-14-1999 varicella virus vaccine Lait melo Cotton-Sandyi DDS Work Phone: [facility] 1998 diphtheria, tetanus toxoids and acellular pertussis vaccine, unspecified formulation Hakan Al-Mashni DDS Work Phone: [facility] 1998 DTaP, unspecified formulation MARCIA SIDELL [facility] 1998 haemophilus influenz ae type b vaccine, PRP-OMP conjugate Hakan Al-Mashni DDS Work Phone: [facility] 1998 poliovirus vaccine, inactivated Hakan Al-Mashni DDS Work Phone: [facility] 1998 poliovirus vaccine, unspecified formulation MARCIA SIDELL [facility] 1998 diphtheria, tetanus toxoids and acellular pertussis vaccine, unspecified formulation Hakan Al-Mashni DDS Work Phone: [facility] 1998 DTaP, unspecified formulation MARCIA SIDELL [facility] 1998 haemophilus influenz ae type b vaccine, PRP-OMP conjugate Hakan Al-Mashni DDS Work Phone: [facility] 1998 hepatitis B vaccine, pediatric or pediatric/adolescent dosage Hakan Al-Mashni DDS Work Phone: [facility] 1998 poliovirus vaccine, inactivated Hakan Al-Mashni DDS Work Phone: [facility] 1998 poliovirus vaccine, unspecified formulation MARCIA SIDELL [facility] 1998 hepatitis B vaccine, pediatric or pediatric/adolescent dosage Hakan Al-Mashni DDS Work Phone: [facility] NEGATED: Highlighted row has not occurred!04-09-2024 influenza virus vaccine, unspecified formulation Camryn Barros [facility] Payers Date Payer Category Payer Unknown [id number] 2024 Self-pay 2023 Private Health Insurance [id number] 2022 Medicaid [employer] [id number] 2021 Private Health Insurance [id number]. [id number] 2021 Unknown [id number] 2011 Medicaid [id number] 1998 Unknown [id number] 2.16.840.1.768724.3.579.2. 593 1998 Unknown [id number] 2.16.840.1.137397.3.579.2. 593 1998 Unknown [id number] 2.16.840.1.101992.3.579.2. 593 1998 Unknown [id number] 2.16.840.1.541126.3.579.2. 593 1998 Unknown [id number] 2.16.840.1.281511.3.579.2. 593 1998 Unknown [id number] 2.16.840.1.820320.3.579.2. 593 1998 Unknown [id number] 2.16.840.1.869633.3.579.2. 593 1998 Unknown [id number] 2.16.840.1.886548.3.579.2. 593 1998 Unknown [id number] 2.16.840.1.735770.3.579.2. 593 1998 Unknown [id number] 2.16.840.1.404188.3.579.2. 593 1998 Unknown [id number] 2.16.840.1.215854.3.579.2. 593 1998 Unknown [id number] 2.16.840.1.483619.3.579.2. 593 1998 Unknown [id number] 2.16.840.1.542777.3.579.2. 593 1998 Unknown [id number] 2.16.840.1.459138.3.579.2. 593 1998 Unknown [id number] 2.16.840.1.431945.3.579.2. 593 1998 Unknown [id number] 2.16.840.1.580400.3.579.2. 732 1998 Unknown [id number] 2.16.840.1.483688.3.579.2. 732 1998 Unknown [id number] 2.16.840.1.379996.3.579.2. 732 1998 Unknown [id number] 2.16.840.1.136669.3.579.2. 732 1998 Unknown [id number] 2.16.840.1.161939.3.579.2. 732 1998 Unknown [id number] 2.16.840.1.417188.3.579.2. 732 1998 Unknown [id number] 2.16.840.1.613536.3.579.2. 727 1998 Unknown [id number] 2.16.840.1.255749.3.579.2. 727 1998 Unknown [id number] 2.16.840.1.894037.3.579.2. 72 1998 Unknown [id number] 2.16.840.1.165971.3.579.2. 72 1998 Unknown [id number] 2.16.840.1.909823.3.579.2. 72 1998 Unknown [id number] 2.16.840.1.914799.3.579.2. 1998 Unknown [id number] 2.16.840.1.402490.3.579.2 72 1998 Unknown [id number] 2.16.840.1.196167.3.579.2 1998 Unknown [id number] 2.16.840.1.958786.3.579.2 1998 Unknown [id number] 2.16.840.1.050806.3.579.2 1998 Unknown [id number] 2.16.840.1.522151.3.579.2 1998 Unknown [id number] 2.16.840.1.406653.3.579.2 1998 Unknown [id number] 2.16.840.1.319307.3.579.2 1998 Unknown [id number] 2.16.840.1.329586.3.579.2 1998 Unknown [id number] 2.16.840.1.455029.3.579.2. 72 1998 Unknown [id number] 2.16.840.1.119661.3.579.2 1998 Unknown [id number] 2.16.840.1.917504.3.579.2 1998 Unknown [id number] 2.16.840.1.170137.3.579.2 72 1998 Unknown [id number] 2.16.840.1.070861.3.579.2. 727 1998 Unknown [id number] 2.16840.1.898368.3.579.2. 72 1998 Unknown [id number] 2.16840.1.177294.3.579.2. 72 1998 Unknown [id number] 2.16840.1.950189.3.579.2. 1998 Unknown [id number] 2.16840.1.652532.3.579.2. 72 1998 Unknown [id number] 2.16840.1.682580.3.579.2. 1998 Unknown [id number] 2.16840.1.403937.3.579.2. 1998 Unknown [id number] 2.840.1.099259.3.579.2 1998 Unknown [id number] 2.16840.1.165258.3.579.2. 1998 Unknown [id number] 2.16840.1.505369.3.579.2. 1998 Unknown [id number] 2.16840.1.232189.3.579.2. 1998 Unknown [id number] 2.16840.1.000099.3.579.2. 128 1998 Unknown [id number] 2.16840.1.944938.3.579.2. 128 1998 Unknown [id number] 2.16840.1.049228.3.579.2. 128 1998 Unknown [id number] 2.16840.1.809141.3.579.2. 128 1998 Unknown [id number] 2.16840.1.215990.3.579.2. 128 1998 Unknown [id number] 2.16.840.1.060944.3.579.2. 727 1998 Unknown [id number] 2.16.840.1.453310.3.579.2. 727 1998 Unknown [id number] 2.16.840.1.275354.3.579.2. 727 1998 Unknown [id number] 2.16.840.1.567533.3.579.2. 1286 1998 Unknown [id number] 2.16.840.1.824518.3.579.2. 128 1998 Unknown [id number] 2.16.840.1.440466.3.579.2. 128 1998 Unknown [id number] 2.16.840.1.571095.3.579.2. 128 1998 Unknown [id number] 2.16840.1.942007.3.579.2. 9 1998 Unknown [id number] 2.16.840.1.657227.3.579.2. 1258 1998 Unknown [id number] 2.16.840.1.379145.3.579.2. 1258 1998 Unknown [id number] 2.16.840.1.597848.3.579.2. 1258 1998 Unknown [id number] 2.16.840.1.386017.3.579.2. 1258 1998 Unknown [id number] 2.16.840.1.566376.3.579.2. 125 1998 Unknown [id number] 2.16.840.1.656607.3.579.2. 125 1998 Unknown [id number] 2.16.840.1.428634.3.579.2. 9 1998 Unknown [id number] 2.16.840.1.501644.3.579.2. 1259 1959 Self-pay [id number] 1959 Unknown [id number] [employer] 1.2.840.831038.1.13.424.2. 7.9.128931.900.315 Unknown [id number] 2.16.840.1.540694.3.579.2. 531 Unknown [id number] 2.16.840.1.835330.3.579.2. 531 Unknown [id number] 2.16.840.1.656608.3.579.2. 531 Unknown [id number] 2.16.840.1.514264.3.579.2. 531 Unknown [id number] 2.16.840.1.225988.3.579.2. 531 Unknown [id number] 2.16.840.1.696892.3.579.2. 531 Social History Date Type Detail Facility Tobacco smoking status NHIS Unknown if ever smoked [place], [place] Start: 1998 Sex Assigned At Not on file [place], [place] Start: 01-23-2020 End: 09-14-2020 Tobacco smoking status Ex-smoker (finding) [facility] Start: 03-30-2020 End: 08-07-2024 Sex Assigned At Female [facility] Tobacco [facility] Comment on above: denies Start: 10-18-2022 Tobacco smoking status NHIS Tobacco smoking consumption unknown [employer] Work Phone: Tobacco smoking status [facility] Start: 02-16-2022 Tobacco smoking status NHIS Never smoked tobacco [facility] Work Phone: Start: 01-23-2020 End: 02-16-2022 Tobacco use and exposure Smokeless tobacco non-user [facility] Start: 02-16-2022 End: 03-03-2022 Alcohol intake Lifetime non-drinker (finding) [facility] Tobacco smoking status Never [facility] Start: 04-12-2017 End: 04-12-2017 Tobacco smoking status NHIS Smoker (finding) [facility] Start: 12-18-2019 End: 04-30-2024 Sex Female (finding) [facility] Start: 2000 Sex Assigned At Female F [facility] Start: 04-13-2024 [facility] History of tobacco use Cigarette Smoker [facility] Start: 08-07-2024 End: 08-27-2024 Alcoholic beverage intake Ex-drinker (finding) [facility] [employer] [facility] Start: 03-30-2020 End: 08-07-2024 History of Social function [facility] [employer] Start: 01-23-2020 Tobacco Comment uses nicotine patche s [facility] [employer] [facility] Start: 04-12-2017 Tobacco smoking status NHIS Smokes tobacco daily (finding) [facility] Medical Equipment Procedure Code Equipment Code Equipment [...] 03-15-2017 Functional Status Date Assessment Result Facility 07-27-2024 Functional Status N/A [facility] 06-04-2024 Functional Status N/A [facility] 05-28-2024 Functional Status N/A [facility] 02-29-2024 Functional Status N/A [facility] 10-09-2023 Functional Status N/A [facility] 10-06-2023 Functional Status N/A [facility] 05-15-2023 Functional Status N/A [facility] 05-09-2023 Functional Status No [facility] 05-08-2023 Functional Status [facility] 05-02-2023 Functional Status N/A [facility] 04-23-2023 Functional Status N/A [facility] 02-02-2023 Functional Status N/A [facility] 10-16-2022 Functional Status N/A [facility] 07-10-2022 Functional Status N/A [facility] 02-19-2022 Functional Status N/A [facility] 02-04-2022 Functional Status N/A [facility] 08-27-2021 Functional Status N/A [facility] Clinical Notes 08-27-2021 to 10-30-2024 Michelle Segura NP - 10/30/2024 1:00 PM EDTTelephone Encounter - Viola Jones RN - 10/30/2024 12:29 PM EDTTelephone Encounter - Viola Jones RN - 10/30/2024 12:29 PM EDT Note Date & Type Note Facility 10-30-2024 History of Present illness Narrative Reason for Appointment: Patient ID: Fabrizio Carballo is a 24 y.o. female who [...] nursing note reviewed. Exam conducted with a hvac technician residential present. Vitals: Estimated body mass index is 34.59 kg/m as calculated from the following: Height as of 24: 5' 4 . Weight as of this encounter: 201 lb 8 oz. BP: 122/82 No LMP recorded. Patient is . ASSESSMENT & PLAN ICD-10-CM 1. Third trimester ([facility]) Z34.93 magnesium oxide (Mag-Ox) 400 MG tablet 2. 30 weeks gestation of ([facility]) Z3A.30 3. 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[facility]) O36.0190 iron polysaccharides (ProFe) 391.3 (180 Fe) MG capsule US biophysical profile w non stress test 4. Rh negative state in antepartum period, unspecified trimester ([facility]) O26.899 iron polysaccharides (ProFe) 391.3 (180 [...] Michelle Segura NP documented in this encounter [facility] 10-30-2024 Miscellaneous Notes Patient was a no show for her MCA dopplers today in the [place] office. Called and left a message on Dr. Arthur's nurse line regarding the no show today. documented in this encounter [facility] 10-30-2024 Telephone encounter Note Patient was a no show for her MCA dopplers today in the [place] office. Called and left a message on Dr. Arthur's nurse line regarding the no show today. [facility] 10-29-2024 Miscellaneous Notes LVM to report patient's antibody titer result. Titers are not critical and patient is to continue to get weekly MCA dopplers and serial titers drawn every 2 weeks. documented in this encounter [facility] 10-29-2024 Telephone encounter Note LVM to report patient's antibody titer result. Titers are not critical and patient is to continue to get weekly MCA dopplers and serial titers drawn every 2 weeks. [facility] 10-14-2024 Miscellaneous Notes Patient called to see when she needs her next antibody titer drawn. Informed patient that she is due to get her labs drawn October 16. Patient instructed to go to [facility] lab since they will be able to see the standing orders. documented in this encounter [facility] 10-14-2024 Telephone encounter Note Patient called to see when she needs her next antibody titer drawn. Informed patient that she is due to get her labs drawn October 16. Patient instructed to go to [facility] lab since they will be able to see the standing orders. [facility] 10-09-2024 Miscellaneous Notes Pt called stating that she is unable to be on time for her US today d/t being stuck in traffic. Her US was scheduled for 3:15pm, she stated she could possibly be here at 4:00pm. [facility] real estate associate was scanning another pt. Told pt I would call her back after to speaking with real estate associate. After discussing pt with [facility] real estate associate, I left vm informing pt that we unfortunately cannot see her today for her US d/t her possibly being 45 minutes late. Informed pt that her next US is scheduled for 10/16/2024 at 3:15pm, asked pt to arrive 15 minutes early with out children. documented in this encounter [facility] 10-09-2024 Telephone encounter Note Pt called stating that she is unable to be on time for her US today d/t being stuck in traffic. Her US was scheduled for 3:15pm, she stated she could possibly be here at 4:00pm. [facility] real estate associate was scanning another pt. Told pt I would call her back after to speaking with real estate associate. [facility] 10-09-2024 Telephone encounter Note After discussing pt with [facility] real estate associate, I left vm informing pt that we unfortunately cannot see her today for her US d/t her possibly being 45 minutes late. Informed pt that her next US is scheduled for 10/16/2024 at 3:15pm, asked pt to arrive 15 minutes early with out children. [facility] 10-08-2024 Miscellaneous Notes Jyoti from Dr. Arthur's office called for clarification if the patient needs Rhogam. Patient called her OB office this morning inquiring if she needs the rhogam injection. Optometry Teacher verified with Dr. Correia and she does not need rhogam since she is already sensitized with the D antigen. Her recommendation in listed in her office note on 08/27/2024. Returned call and LVM for Jyoti stating the above information. Left call back number if she has any further questions. documented in this encounter [facility] 10-08-2024 Telephone encounter Note Jyoti from Dr. Arthur's office called for clarification if the patient needs Rhogam. Patient called her OB office this morning inquiring if she needs the rhogam injection. Optometry Teacher verified with Dr. Correia and she does not need rhogam since she is already sensitized with the D antigen. Her recommendation in listed in her office note on 08/27/2024. Returned call and LVM for Jyoti stating the above information. Left call back number if she has any further questions. [facility] 10-07-2024 Miscellaneous Notes Called patient to discuss lab results. Notified patient that Dr. Correia reviewed antibody titers. New order placed for patient to get antibody titers every 2 weeks. Patient is also to get MCA dopplers every 1-2 weeks. Patient is already scheduled for MCA dopplers next week and the following week. Notified patient that her hemoglobin is low and will need iron supplementation, order placed for patient to clam picker at the pharmacy. Patient also needs rescheduled for an office visit and follow up survey. Informed patient to look out for a phone call from [facility] to get that scheduled. Patient verbalized understanding. documented in this encounter [facility] 10-07-2024 Telephone encounter Note Called patient to discuss lab results. Notified patient that Dr. Correia reviewed antibody titers. New order placed for patient to get antibody titers every 2 weeks. Patient is also to get MCA dopplers every 1-2 weeks. Patient is already scheduled for MCA dopplers next week and the following week. Notified patient that her hemoglobin is low and will need iron supplementation, order placed for patient to clam picker at the pharmacy. Patient also needs rescheduled for an office visit and follow up survey. Informed patient to look out for a phone call from [facility] to get that scheduled. Patient verbalized understanding. [facility] 10-07-2024 Miscellaneous Notes Patient called to inquire about abnormal lab results. Patient had blood work done at [facility] that was ordered by Dr. Correia. Optometry Teacher explained to patient that [facility] is not able to view the results at outside facilities but they should be faxed to our office. Optometry Teacher then attempted to call [facility] but the phone kept ringing. Will try again at a later time. documented in this encounter [facility] 10-07-2024 Telephone encounter Note Patient called to inquire about abnormal lab results. Patient had blood work done at [facility] that was ordered by Dr. Correia. Optometry Teacher explained to patient that [facility] is not able to view the results at outside facilities but they should be faxed to our office. Optometry Teacher then attempted to call [facility] but the phone kept ringing. Will try again at a later time. [facility] 10-06-2024 Note Discharge Instructio ns Given Worsening The following Patient Education Materials have been given to the patient: ~~ EducationMaterial [facility] 10-02-2024 History of Present illness Narrative Reason for Appointment: Patient ID: Fabrizio Carballo is a 24 y.o. female who presents for Routine Visit Patient presents today for Return OB appointment. MEDICATIONS Current Outpatient Medications Medication Instructions MV-Min-Fe Fum-FA-DHA ( 1 PO) 1 each, Daily terconazole (Terazol 7) 0.4 % vaginal cream 1 applicator, Vaginal, Nightly valACYclovir (VALTREX) 500 mg, Oral, Daily ALLERGIES [...] Exam Constitutional: Appearance: Normal appearance. She is normal weight. HENT: Head: Normocephalic. Cardiovascular: Rate and Rhythm: Normal rate. Pulses: Normal pulses. Pulmonary: Effort: Pulmonary effort is normal. Breath sounds: Normal breath sounds. Abdominal: Palpations: Abdomen is soft. Musculoskeletal: General: Normal range of motion. Neurological: General: No focal deficit present. Mental Status: She is alert and oriented to person, place, and time. Psychiatric: Mood and Affect: Mood normal. Behavior: Behavior normal. Thought Content: Thought content normal. Judgment: Judgment normal. Vitals and nursing note reviewed. Vitals: Estimated body mass index is 34.74 kg/m as calculated from the following: Height as of 10/31/23: 5' 4 . Weight as of this encounter: 202 lb 6.4 oz. BP: 120/80 No LMP recorded. Patient is . ASSESSMENT & PLAN ICD-10-CM 1. 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[facility]) O36.0190 Type and screen Antibody titer ABO/Rh POCT urinalysis dipstick manually resulted 2. 26 weeks gestation of ([facility]) Z3A.26 POCT urinalysis dipstick manually resulted 3. Second trimester ([facility]) Z34.92 4. Herpes simplex B00.9 Return OB: Patient presents today for a routine obstetrics appointment. Patient is currently 26w4d . Patient states she is doing well but has complaints of being tired due to current . Patient has verbalizes frequent movement. labor precautions was discussed/given and patient was instructed to perform kick counts three times a day. Orders Placed This Encounter Procedures Type and screen Antibody titer ABO/Rh POCT urinalysis dipstick manually resulted Follow Up: Patient is to return to office in 2 week for routine OB appointment. Documented by NELSON Guzman on behalf of: NELSON Guzman documented in this encounter [facility] 10-01-2024 Miscellaneous Notes Recvd call from pt 09/30 needing to r/s no show f/u usn and OV with Dr Vallecillo 09/26 [facility] (60m usn, 30m established). Unable to find any appts to work pt in soon, has mca dopplers 10/02 in [facility]. Advised pt that sign writer letterer or painter would speak with an M provider. Discussed with Dr Vallecillo; advised to repeat antibodies and titers and we would see pt after receiving results, also no Rhogam to be given. Attempted to contact OB office to leave message with recommendations. Unable to leave message at OB office. Telephone note created and providers copied. documented in this encounter [facility] 10-01-2024 Telephone encounter Note Recvd call from pt 09/30 needing to r/s no show f/u usn and OV with Dr Vallecillo 09/26 [facility] (60m usn, 30m established). Unable to find any appts to work pt in soon, has mca dopplers 10/02 in [facility]. Advised pt that sign writer letterer or painter would speak with an M provider. Discussed with Dr Vallecillo; advised to repeat antibodies and titers and we would see pt after receiving results, also no Rhogam to be given. Attempted to contact OB office to leave message with recommendations. Unable to leave message at OB office. Telephone note created and providers copied. [facility] 10-01-2024 Miscellaneous Notes Error documented in this encounter [facility] 10-01-2024 Telephone encounter Note Error [facility] 09-15-2024 History of Present illness Narrative Reason for Appointment: Patient ID: Fabrizio Carballo is a 24 y.o. female who presents for Routine Visit Patient presents today for Return OB appointment. MEDICATIONS Current Outpatient Medications Medication Instructions MV-Min-Fe Fum-FA-DHA ( 1 PO) 1 each, [...] nursing note reviewed. Exam conducted with a hvac technician residential present. Vitals: Estimated body mass index is 34.06 kg/m as calculated from the following: Height as of 10/31/23: 5' 4 . Weight as of this encounter: 198 lb 6.4 oz. BP: 114/74 No LMP recorded. Patient is . ASSESSMENT & PLAN ICD-10-CM 1. Second trimester ([facility]) Z34.92 POCT urinalysis dipstick manually resulted 2. 24 weeks gestation of ([facility]) Z3A.24 POCT urinalysis dipstick manually resulted 3. Diabetes mellitus screening Z13.1 CBC Glucose tolerance, 1 hour CBC Glucose tolerance, 1 hour 4. Herpes simplex B00.9 5. Rh negative state in antepartum period, unspecified trimester ([facility]) O26.899 Z67.91 Return OB: Patient presents today for a routine obstetrics appointment. Patient is currently 24w1d . Patient states she is doing well but has complaints of being tired due to current . Patient has verbalizes frequent movement. labor precautions was discussed/given. Pt has appts set with [facility]. Orders Placed This Encounter Procedures CBC Glucose tolerance, 1 hour POCT urinalysis dipstick manually resulted Follow Up: Patient is to return to office in 4 week for routine OB appointment. Documented by Nadya Medina LPN on behalf of: Andrey Arthur DO documented in this encounter [facility] 09-11-2024 Miscellaneous Notes [place] antigen testing shows E antigen and D antigen The patient called and notified of results She also has a scheduled follow-up appointment at [facility] GENIA CORREIA MD documented in this encounter [facility] 09-11-2024 Telephone encounter Note [place] antigen testing shows E antigen and D antigen The patient called and notified of results She also has a scheduled follow-up appointment at [facility] GENIA CORREIA MD [facility] 09-02-2024 History of Present illness Narrative Reason for Appointment: Patient ID: Fabrizio Carballo is a 24 y.o. female who presents for Routine Visit Patient presents today for Return OB appointment. MEDICATIONS Current Outpatient Medications Medication Instructions MV-Min-Fe Fum-FA-DHA ( 1 PO) 1 each, [...] Exam Constitutional: Appearance: Normal appearance. She is normal weight. HENT: Head: Normocephalic. Cardiovascular: Rate and Rhythm: Normal rate. Pulses: Normal pulses. Pulmonary: Effort: Pulmonary effort is normal. Breath sounds: Normal breath sounds. Abdominal: Palpations: Abdomen is soft. Musculoskeletal: General: Normal range of motion. Neurological: General: No focal deficit present. Mental Status: She is alert and oriented to person, place, and time. Psychiatric: Mood and Affect: Mood normal. Behavior: Behavior normal. Thought Content: Thought content normal. Judgment: Judgment normal. Vitals and nursing note reviewed. Vitals: Estimated body mass index is 33.17 kg/m as calculated from the following: Height as of 10/31/23: 5' 4 . Weight as of this encounter: 193 lb 4 oz. BP: 118/82 No LMP recorded. Patient is . ASSESSMENT & PLAN ICD-10-CM 1. Second trimester ([facility]) Z34.92 POCT urinalysis dipstick manually resulted 2. 22 weeks gestation of ([facility]) Z3A.22 Return OB: Patient presents today for a routine obstetrics appointment. Patient is currently 22w2d . Patient states she is doing well but has complaints of being tired due to current . Patient has verbalizes frequent movement. M notes reviewed and explained to the patient. Orders Placed This Encounter Procedures POCT urinalysis dipstick manually resulted Follow Up: Patient is to return to office in 2 week for routine OB appointment. Documented by NELSON Guzman on behalf of: NELSON Guzman documented in this encounter [facility] 08-27-2024 History of Present illness Narrative [facility] Consult Note Reason For Consult: multiple issues HPI: Fabrizio Carballo is a 24 y.o. at 21w3d with Estimated Date of Delivery: 01/04/25 Chief Complaint Patient presents with Anti-D antibodies hx FGR hx PTD I have reviewed the pertinent available patient records including but not limited to notes, labs and images She reports that she is doing well. She reports normal movements and she denies leakage of fluid, contractions or vaginal bleeding. She denies fever, chills, nausea, vomiting, shortness of breath, chest pain, headache, blurry vision, right upper quadrant pain or edema. Complications: Anti D and Anti E antibodies - needs MCA dopplers. Rhesus negative, fetus Rh positive on cell free DNA - needs repeat titiers - last 06/12/24 at [facility] D antibody too weak to titer - has had anti-E antibodies in the past Low lying placenta History of oligohydramnios History of FGR History of gestational hypertension History of x3 History of iron-deficiency in the prior requiring transfusion Last complicated by hospital-acquired pneumonia In 2019 was high-risk for DiGeorge syndrome on cell free DNA amniocentesis microarray was negative The patient had indicated delivery Denies family history of: Learning difficulties, congenital anomalies, DVT/VTE, early-onset cancer, early-onset cardiac disease or other inherited conditions Cell free DNA: low risk, fetus RH positive Denies smoking, alcohol or other substance use in Denies exposure to cat litter, farming animals, toxic exposure to chemical at work/environment Recent hospitalization: no Review of systems: Review of systems was noncontributory OB Hx: OB History Para Term AB Living 4 3 1 2 0 3 SAB IAB Ectopic Multiple Live Births 0 0 0 0 3 # Outcome Date GA Lbr [place]/2nd Weight Sex Type Anes PTL Lv 4 Current 3 04/18/21 36w0d 1.61 kg F EPI N BRIAN 2 06/08/20 35w5d 1.843 kg M CS-Unspec 1 Term 01/08/19 38w5d 3.527 kg M CS-LTranv Spinal N BRIAN Comments: CANX1 Complications: Herpes simplex type 2 (HSV-2) infection affecting , antepartum PREECLAMPSIA SCREEN ([place] Preventive Services Task Force) Patient is at high risk if 1 or more factors present. Incidence of preeclampsia is >= 8%: Prior preeclampsia YES Multiple gestation NO Chronic hypertension NO Type 1 or 2 diabetes NO Renal disease NO Autoimmune disease NO (Lupus, APLS) Patient is at moderate risk is several risk factors are present: Nulliparity NO Obesity (BMI >= 30) YES Family history of preeclampsia NO (Mother, sister) NO Sociodemographic characteristics NO (AA, low socioeconomic status) Age >= 35 NO Personal history factor YES (Previous SGA, adverse outcome, > 10 years from last ) PMH: Past Medical History: Diagnosis Date Abnormal chromosomal and genetic finding on screening mother ADHD Anemia Back pain Bipolar disorder (CMS-HCC) BV (bacterial vaginosis) Depression Genital herpes Obesity (BMI 30-39.9) Poor growth affecting management of mother PTSD (post-traumatic stress disorder) Vaginal bleeding affecting early PSHIST: Past Surgical History: Procedure Laterality Date APPENDECTOMY 04/2023 N/A 04/18/2021 Performed by Devin Goodwin MD at [facility] OR SECTION x2 MANDIBLE SURGERY Allergies: Allergies Allergen Reactions Abilify [Aripiprazole] Meloxicam Vicodin [Hydrocodone-Acetaminophen] Meds: Current Outpatient Medications: vit,calc76/iron/folic (PNV 29-1 ORAL), Take 1 tablet by mouth in the morning., Disp: , Rfl: valACYclovir (VALTREX) 500 mg tablet, Take 1 tablet (500 mg total) by mouth 2 (two) times a day., Disp: 60 tablet, Rfl: 0 albuterol (PROVENTIL HFA;VENTOLIN HFA) 90 mcg/actuation inhaler, Inhale 2 puffs every 4 (four) hours as needed for wheezing or shortness of breath. (Patient not taking: Reported on 08/27/2024), Disp: 18 g, Rfl: 1 aspirin 81 mg, Take one 1 tablet once a day until delivery and then stop, Disp: 30 tablet, Rfl: 6 docusate sodium (COLACE) 100 mg capsule, Take 1 capsule (100 mg total) by mouth 2 (two) times a day. (Patient not taking: Reported on 08/27/2024), Disp: 60 capsule, Rfl: 0 ferrous sulfate 325 (65 FE) mg tablet, Take 325 mg by mouth daily with breakfast. (Patient not taking: Reported on 08/27/2024), Disp: , Rfl: SH: Social History Socioeconomic History Marital status: Spouse name: Not on file Number of children: Not on file Years of education: Not on file Highest education level: Not on file Occupational History Not on file Tobacco Use Smoking status: Former Types: Cigarettes Smokeless tobacco: Never Tobacco comments: uses nicotine patches Vaping Use Vaping status: Former Substance and Sexual Activity Alcohol use: Not Currently Drug use: Not Currently Sexual activity: Not on file Other Topics Concern Not on file Social History Narrative Not on file Social Drivers of Health Financial Resource Strain: Not on file Food Insecurity: No Food Insecurity (08/27/2024) Hunger Screening Food Insecurity - Worry: Never True Food Insecurity - Inability: Never True Transportation Needs: Not on file Physical Activity: Not on file Stress: Not on file Social Connections: Not on file Interpersonal Safety: Not on file Housing Instability: Not on file Physical Exam: Vital Signs Vitals: 08/27/24 1013 BP: 125/82 BP Site: Left Arm BP Postition: Lying BP CUFF SIZE: M (9-13 inches) Pulse: 72 Weight: 87.3 kg (192 lb 6.4 oz) Height: 165.1 cm (5' 5 ) Physical Exam: Gen: Not in acute distress, alert and oriented. Eyes: Pupils equal and reactive Chest: Nonlabored breathing Cardiac: Pulse was regular on vital signs assessment Abdomen: Gravid Skin/extremities: Appears intact. No visible lesions MS:no visible edema Neuro: No focal deficits Notes/Imaging/Labs reviewed Abstract on 08/27/2024 Component Date Value Ref Range Status Abo/Rh(D) 06/12/2024 A Negative Final Abstract on 08/07/2024 Component Date Value Ref Range Status Syphilis 06/13/2019 non reactive Final Rubella immune IgG 06/13/2019 1.46 Final Antibody Screen 06/13/2019 positive Final HIV 1&2 AB/AG 06/13/2019 non reactive Final Hepatitis B Surface Antigen 06/13/2019 negative Final Syphilis 06/13/2019 non reactive Final Rubella immune IgG 06/13/2019 1.46 Final Antibody Screen 06/13/2019 positive Final HIV 1&2 AB/AG 06/13/2019 non reactive Final Hepatitis B Surface Antigen 06/13/2019 negative Final Glucose 06/12/2024 97 mg/dL Final Hemoglobin A1C 06/12/2024 5.0 4.0 - 6.0 % Final Syphilis 06/12/2024 non reactive Final Rubella immune IgG 06/12/2024 1.46 Final Antibody Screen 06/12/2024 positive Final HIV 1&2 AB/AG 06/12/2024 non reactive Final Hemoglobin 06/12/2024 10.5 Final Hematocrit 06/12/2024 33.4 Final Rbc Mcv (Fl) By Automated Count 06/12/2024 78.2 Final Platelets 06/12/2024 280 Final Methadone 06/12/2024 negative Final Opiates 06/12/2024 negative Final Amphetamine/Methamphetamine 06/12/2024 negative Final Cocaine Metabolite 06/12/2024 negative Final Phencyclidine 06/12/2024 negative Final Thc Marijuana, Urine 06/12/2024 negative Final Oxycodone 06/12/2024 negatine Final Barbiturates 06/12/2024 negative Final Benzodiazepines 06/12/2024 negative Final Hepatitis B Surface Antigen 06/12/2024 negative Final Ultrasound findings Pertinent Ultrasound findings are see report Assessment/Plan 24 y.o. @ at 21w3d with Estimated Date of Delivery: 01/04/25 here for consultation regardin. 21 weeks gestation of - Antibody ID; Future - Type and screen(includes indirect chin); Future - Antibody titer; Future - Unlisted Lab Test; Future 2. 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 When these antibodies are present, the patient is said to be alloimmunized. Women can be sensitized to red blood cell antigens in when RBCs with antigens inherited from the father enter the maternal circulation. They can also be sensitized secondary to blood transfusions and intravenous drug use. In subsequent pregnancies, some of these antibodies can cross the placenta, potentially binding to RBCs to cause destruction and anemia. Hemolytic Disease of the Fetus and (HDFN) is the end result of RBC alloimmunization in some cases. If a sufficient quantity of antibodies crosses the placenta and binds to RBCs, destruction of these cells can result in anemia in the baby. This may present in utero or in the period. Management of alloimmunization in aims to identify the fetuses at risk for HDFN, allowing early detection of anemia with subsequent treatment as indicated. I also reviewed with the patient that once she is sensitized with the D antigen she is not a candidate for RhoGAM Assuming paternity is certain, if the father is negative for the antigen to which the mother has antibodies, the fetus will not express this antigen and is therefore not at risk for anemia. If the father is homozygous for the corresponding antigen, the fetus will be heterozygous and therefore at risk for anemia. If the father is heterozygous for the corresponding antigen, there is a 50% chance that the fetus will be heterozygous and at risk for anemia. Amniocentesis can be performed to determine the antigen status. Risks of amniocentesis reviewed. We also discussed Cell free DNA screening ([employer]) is available in the [place] with antigen testing. In a clinical validation study published on Scientific Reports, [facility] RhD NIPT and antigen NIPT demonstrated 100% sensitivity, 100% specificity, 99.9% precision with 0.1% no-call rate across 3,921 NIPT assays. (Eber et al 2022). The antigen NIPT through [employer] checks for RhD, C, c, E, K (Laura), and Fya (Adams). She had cell free DNA that shows the fetus to be Rh positive. I reviewed with the patient that I would recommend having a repeat type and screen with the antibody ID and titers. We also discussed amniocentesis versus cell free DNA for the E antigen. She declined amniocentesis and desires to proceed with [employer]. If the fetus is negative for the E antigen then serial titers of the D antigen will be recommended q4 weeks and then q2 weeks in the 3rd trimester and if critical >= 1:16 then MCA Dopplers surveillance q1-2 weeks is recommended. If the fetus is positive for the E antigen as it is also positive for the D antigen and the patient has anti-D and anti E antibodies then weekly MCA Dopplers until delivery recommended. If peak MCA velocity >=1.5 MoM the patient should be evaluated for referral to a therapy center for cordocentesis/IUT or delivery pending gestational age. surveillance recommended. If peak MCA velocity <1.5 MoM surveillance starting at 32 weeks weekly NST and DVP/MADELEINE with delivery at 37-38 weeks as per ACOG. 3. History of intrauterine growth restriction in prior , currently - Unlisted Lab Test; Future 4. History of oligohydramnios - Unlisted Lab Test; Future The patient has a history of growth restriction and oligohydramnios. Serial growth ultrasounds and testing recommended Risk of recurrence of the growth restriction and oligohydramnios reviewed 5. with history of section, antepartum Plan for a repeat section 6. History of gestational hypertension At risk of gestational hypertension and preeclampsia long-term risk of cardiovascular disease reviewed Discussed with the patient education on signs and symptoms of preeclampsia She meets criteria for low-dose aspirin for preeclampsia prophylaxis She tells me that she has taken aspirin in the past without side effects 7. Low lying placenta, antepartum Posterior Low-lying placenta on ultrasound today. Repeat re-evaluation of the placenta location recommended 28-32 weeks Bleeding precautions given on pelvic rest recommended The patient also desires to have the 22q11 deletion checked on cell free DNA due to prior history. She declines amniocentesis. Recommendations: T&S, antibody ID and titer ordered Cell free DNA for antigen E. Repeat aneuploidy screen with 22q11 Low dose aspirin 81 mg q.day for preeclampsia prevention For now weekly MCA Dopplers until we have repeat antibodies and titers. (please see above for detailed recommendations) Serial growth assessments every 4 weeks after the anatomy scan testing to be initiated at 32 weeks weekly NST and DVP due to history of isoimmunization, oligohydramnios and FGR Delivery 37-38 weeks due to isoimmunization. However timing of delivery to be further delineated pending placenta location and follow-up growth ultrasounds Route of delivery repeat Please screen the patient for anemia and iron-deficiency during the and optimize as she required blood transfusion in her past The patient has scheduled follow-up with MFM Plan reviewed with patient. She vocalized understanding all questions answered. The patient is to continue with routine care in your office Thank you for allowing me to participate in her care. Please contact me if you have any concerns. Genia Correia MD, FACOG (she/hers) Maternal- Medicine [facility] [address] [place] [address] This document was created with [employer] technology. Though I make every effort to review the dictation as it is transcribed, on occasion the spoken word can be misinterpreted by the technology leading to inappropriate words, phrases, or sentences. This note is addressed to the requesting provider as a consultation for clinical guidance. Specific medical abbreviations are occasionally used and those are generally approved by the [place]?Board of?Obstetrics and?Gynecology?as well as?Jossy herrera abbreviations. The above plan of care was based solely on the diagnoses for which a consultation was requested. ?More frequent testing may be indicated based on her other medical/obstetrical conditions. The management of other or medical conditions is beyond the scope of requested consultation and will continue to be followed by the primary accounting support specialist or primary care provider. Note to patient: The Century Cures Act makes medical notes like these available to patients in the interest of transparency. However, be advised this is a medical document. It is intended as peer to peer communication. It is written in medical language and may contain abbreviations or verbiage that are unfamiliar. It may appear blunt or direct. Medical documents are intended to carry relevant information, facts as evident, and the clinical opinion of the practitioner. Headache/epigastric pain/blurry vision/swelling? No Cramping/contractions? No Abnormal vaginal discharge? No Spotting/vaginal bleeding? No Loss or gush of fluid like your water may have broken? No Do you have cats at home? No Do you change the litter box (reason: risk of toxoplasmosis)? NA Genetic testing done this here or other office? Yes, low risk Have you been seen here at [facility] in a previous ? Yes, patient had prior amniocentesis Recent ER visits or hospitalizations? Yes recently for UTI/back pain Bring blood sugar log or meter with you today? (Please bring them with you for every visit at [facility]) NA Flu vaccine (Jan-May)? NA Any concerns that you would like me to mention to the provider today? No documented in this encounter Mahindra REVA 08-05-2024 History of Present illness Narrative Reason for Appointment: Patient ID: Fabrizio Carballo is a 24 y.o. female who presents for Routine Visit Patient presents today for Return OB appointment. MEDICATIONS Current Outpatient Medications Medication Instructions MV-Min-Fe Fum-FA-DHA ( 1 PO) 1 each, Daily valACYclovir (VALTREX) 500 mg, Oral, Daily valACYclovir (VALTREX) 500 mg, Oral, Daily [...] SYSTEMS Review of Systems: Review of Systems OBJECTIVE Objective: OBGyn Exam Vitals: Estimated body mass index is 33.2 kg/m as calculated from the following: Height as of 10/31/23: 5' 4 . Weight as of this encounter: 193 lb 6.4 oz. BP: 120/76 No LMP recorded. Patient is . ASSESSMENT & PLAN ICD-10-CM 1. 18 weeks gestation of Z3A.18 POCT urinalysis dipstick manually resulted Alpha fetoprotein, maternal Alpha fetoprotein, maternal CANCELED: POCT urinalysis dipstick manually resulted 2. Second trimester Z34.92 POCT urinalysis dipstick manually resulted Alpha fetoprotein, maternal Alpha fetoprotein, maternal CANCELED: POCT urinalysis dipstick manually resulted 3. Well woman exam with routine gynecological exam Z01.419 Pap Smear 4. Vaginal discharge N89.8 SURESWAB(R) ADVANCED VAGINITIS PLUS, TMA 5. Exposure to STD Z20.2 CHLAMYDIA TRACHOMATIS (GENITO/STI) Neisseria gonorrhea DNA probe, direct Documented by Nadya Medina LPN on behalf of: Andrey Arthur DO documented in this encounter [facility] 07-28-2024 Hospital Discharge instructions Patient Education 07/27/2024 22:57:00 Abdominal Pain During , Dwsk-qk-Awkx Abdominal Pain During Belly (abdominal) pain is common during . There are many possible causes. Some causes are more serious than others. Sometimes the cause is not known. Always tell your doctor if you have belly pain. Follow these instructions at home: Do not have sex or put anything in your vagina until your pain goes away completely. Get plenty of rest until your pain gets better. Drink enough fluid to keep your pee (urine) pale yellow. Take txgf-cdp-pghqqsw and prescription medicines only as told by your doctor. Keep all follow-up visits. Contact a doctor if: You keep having pain after resting. Your pain gets worse after resting. You have lower belly pain that: ?Comes and goes at regular times. ?Spreads to your back. ?Feels like menstrual cramps. You have pain or burning when you pee (urinate). Get help right away if: You have a fever or chills. You feel like it is hard to breathe. You have bleeding from your vagina. You are leaking fluid or tissue from your vagina. You vomit for more than 24 hours. You have watery poop (diarrhea) for more than 24 hours. Your baby is moving less than usual. You feel very weak or faint. You have very bad pain in your upper belly. Summary Belly pain is common during . There are many possible causes. If you have belly pain during , tell your doctor right away. Keep all follow-up visits. This information is not intended to replace advice given to you by your health care provider. Make sure you discuss any questions you have with your health care provider. Document Revised: 11/16/2020 Document Reviewed: 11/16/2020 [employer] Patient Education 2023 [employer]. Follow Up Care 07/27/2024 21:27:16 With:Andrey ARTHUR Address: [address] , [place] [address]- Business (1) When:07/30/2024 Comments:Please follow-up with OB for further evaluation and management. Return to the ED for any new or worsening symptoms or if you have any concerns. With:Jewell Monzon Address: Lauren Ocampo [facility] [place] [address] [phone] Business (1) When:Within 3 Day(s) [facility] 07-27-2024 Note ED Patient Education Note Obstetrics and Gynecology Abdominal Pain During Belly (abdominal) pain is common during . There are many possible causes. Some causes are more serious than others. Sometimes the cause is not known. Always tell your doctor if you have belly pain. Follow these instructions at home: ??? Do not have sex or put anything in your vagina until your pain goes away completely. ??? Get plenty of rest until your pain gets better. ??? Drink enough fluid to keep your pee (urine) pale yellow. ??? Take nbdi-nvf-uqsibmb and prescription medicines only as told by your doctor. ??? Keep all follow-up visits. Contact a doctor if: ??? You keep having pain after resting. ??? Your pain gets worse after resting. ??? You have lower belly pain that: ? Comes and goes at regular times. ? Spreads to your back. ? Feels like menstrual cramps. ??? You have pain or burning when you pee (urinate). Get help right away if: ??? You have a fever or chills. ??? You feel like it is hard to breathe. ??? You have bleeding from your vagina. ??? You are leaking fluid or tissue from your vagina. ??? You vomit for more than 24 hours. ??? You have watery poop (diarrhea) for more than 24 hours. ??? Your baby is moving less than usual. ??? You feel very weak or faint. ??? You have very bad pain in your upper belly. Summary ??? Belly pain is common during . There are many possible causes. ??? If you have belly pain during , tell your doctor right away. ??? Keep all follow-up visits. This information is not intended to replace advice given to you by your health care provider. Make sure you discuss any questions you have with your health care provider. Document Revised: 11/16/2020 Document Reviewed: 11/16/2020 [employer] Patient Education ? [address] [employer] [facility] 07-27-2024 Evaluation + Plan note Extrac keara from: Title:ED Note Author:Earline Bond DO Date :07/27/24 Abdominal pain in (O26.899: Other specified related conditions, unspecified trimester) Unspecified abdominal pain (R10.9: Unspecified abdominal pain) Orders: acetaminophen, 975 mg = 3 tab(s), Tab, Oral, Once, Stop date 07/27/24 22:00:00 EDT, STAT, Start date 07/27/24 22:00:00 EDT, 07/27/24 22:00:00 EDT ondansetron, 4 mg = 1 tab(s), Tab-Dis, Oral, Once, Stop date 07/27/24 22:00:00 EDT, STAT, Start date 07/27/24 22:00:00 EDT, 07/27/24 22:00:00 EDT UA with Cult Rflx US Limited [facility] 04-28-2025 History of Present illness Narrative* Viki Douglass, EUGENIA - 07/14/2024 2:10 PM EDT Reason for Appointment: Patient ID: Fabrizio Carballo is a 24 y.o. female who presents for Routine Visit Patient presents today for Return OB appointment. MEDICATIONS Current Outpatient Medications Medication Instructions MV-Min-Fe Fum-FA-DHA ( 1 PO) 1 each, [...] nursing note reviewed. Exam conducted with a hvac technician residential present. Vitals: Estimated body mass index is 30.59 kg/m as calculated from the following: Height as of 10/31/23: 5' 4 . Weight as of 06/12/24: 178 lb 3.2 oz. BP: Patient's last menstrual period was 03/26/2024. ASSESSMENT & PLAN ICD-10-CM 1. Third trimester Z34.93 2. First trimester Z34.91 POCT urinalysis dipstick manually resulted 3. 15 weeks gestation of Z3A.15 4. Rh negative state in antepartum period, unspecified trimester O26.899 Z67.91 New OB: Patient presents today for 1st time obstetrics appointment with provider. Patient is currently 15w1d . Patients history has been reviewed in great detail including any potential risks. Patient stated she currently has no complaints. Expectations throughout regarding labs, ultrasounds, and appointments have been discussed with the patient in detail. It was reiterated that the patient is to drink 6-8 glasses of water a day, eat 6 small meals a day, do not consume raw or undercooked meat, and stay away from [facility]. Patient has been consulted regarding any further do's and don'tsof . Patient voiced understanding and all questions and concerns were answered. Discussed with patient being given Valtrex 500mg BID for 10 days and then maintenance dose to then start daily thereafter. Also sent in Keflex 4 times daily for 7 days. Patient to stop at [facility] after appointment to see about follow up lab work from antibody positive. Called [facility] and spoke with Joseph and Type & Screen will be sent to [facility]. Orders Placed This Encounter Procedures POCT urinalysis dipstick manually resulted Follow Up: Patient is to return in 3 weeks for routine OB appointment. Documented by Viki Douglass LPN on behalf of: Andrey Arthur DO documented in this encounterCox [id number] History of Present illness Narrative* Dee Dee Jiménez MA - 06/12/2024 1:30 PM EDT Reason for Appointment: Patient ID: Fabrizio Carballo is a 23 y.o. female who presents for Amenorrhea Patient presents today for a Nurse OB Intake appointment. Patient is 10w4d with a Estimated Date ofDelivery: 01/04/25 OB History Para Term AB Living 4 3 1 2 3 SAB IAB Ectopic Multiple Live Births 3 # Outcome Date GA Lbr Clemente/2nd Weight Sex Type Anes PTL Lv 4 Current 3 04/18/21 36w0d 3 lb 8.8 oz F CS-Unspec EPI N BRIAN 2 06/08/20 35w5d 4 lb 1 oz M CS-Unspec BRIAN 1 Term 01/08/19 38w5d 7 lb 12.4 oz M CS-LTranv Spinal N BRIAN Comments: CANX1 Complications: PROM (premature rupture of membranes), Herpes simplex type 2 infection Current Medications: has a current medication list which includes the following prescription(s): nitrofurantoin (macrocrystal-monohydrate) and mv-min-fe fum-fa-dha. Medical History: Active Ambulatory Problems Diagnosis Date Noted Genital herpes 10/10/2022 Smoker 10/17/2022 Vaginal infection 10/17/2022 Vaginal discharge 10/17/2022 Resolved Ambulatory Problems Diagnosis Date Noted No Resolved Ambulatory Problems Past Medical History: Diagnosis Date Herpes simplex Yeast infection Family History Problem Relation Name Age of Onset Diabetes Other type 2 Social History Tobacco Use Smoking status: Not on file Smokeless tobacco: Not on file Substance Use Topics Alcohol use: Not on file Drug use: Not on file Past Surgical History: Procedure Laterality Date APPENDECTOMY 04/2023 SECTION, CLASSIC CT ANGIOGRAM HEART CORONARY 04/22/2021 CT ANGIOGRAM TAVR 04/22/2021 MANDIBLE SURGERY jaw repair Allergies Allergen Reactions Aripiprazole Hallucinations, Rash and Unknown Other Reaction(s): Hallucinating Acetaminophen Hives Hydrocodone Hives Hydrocodone-Acetaminophen Rash and Unknown Meloxicam Rash and Unknown Other Reaction(s): Constipation Vitals: Estimated body mass index is 30.59 kg/m as calculated from the following: Height as of 10/31/23: 5' 4 . Weight as of this encounter: 178 lb 3.2 oz. BP: 128/78 Patient's last menstrual period was 03/26/2024. Assessment/Plan Diagnoses and all orders for this visit: Missed menses - US OB transvaginal; Future - Type and screen; Future - ABO/Rh; Future - CBC and differential - Hemoglobin A1c - RPR - Rubella antibody, IgG - Hepatitis B surface antigen - Hepatitis C antibody - HIV-1 and HIV-2 antibodies - Urine culture - POCT , urine manually resulted - POCT urinalysis dipstick manually resulted , unspecified gestational age - Type and screen; Future - ABO/Rh; Future - CBC and differential - Hemoglobin A1c - RPR - Rubella antibody, IgG - Hepatitis B surface antigen - Hepatitis C antibody - HIV-1 and HIV-2 antibodies - Rapid drug screen, urine; Future Encounter for supervision of normal first in first trimester - Rapid drug screen, urine; Future Nurse Note: OB Intake: Patient presents today for first OB visit. Patients history has been reviewed in great detail including any potential risks. Patient signed consent forms and patient desires testing in both trimesters. Patient currently has no complaints and has been advised to drink 6-8 glasses of water a day, eatno raw or undercooked meat, and stay away from [facility]. Patient has also been advised to not change litter boxes and eat 6 small meals a day. Patient has been consulted regarding the do's and don'ts ofpregnancy. Patient was given labs and all questions and concerns were answered. Follow Up: Patient is to return in 4 weeks for routine OB appointment. Follow Up: Patient is to have labs drawn at directed and return to office for initial OB appointment with provider. Patient may call office as needed with any concerns or questions. Nurse Visit Completed by: Dee Dee Jiménez MA documented in this encounterCox [id number] NoteMicrobiology PROCEDURE: Cervical Culture [R1] SOURCE: Cerv BODY SITE: COLLECTED DATE/TIME: 06/04/2024 20:31 EDT RECEIVED DATE/TIME: 06/04/2024 20:39 EDT START DATE/TIME: 06/04/2024 20:39 EDT FREE TEXT SOURCE: Earline Bond DO, DO, Kaylinn A FINAL REPORTS Final Report [] Verified Date/Time: 06/07/2024 07:23 EDT 2+ Escherichia coli 2+ Streptococcus agalactiae (Group B) Presumptive Penicillin is the drug of choice for Beta Hemolytic Streptococci Isolates. Routine susceptibility testing on Beta Hemolytic Streptococcus isolates is no longer performed. Susceptibilities will continue to be performed on Isolates from sterile body fluids and serious wound infections. 2+ Normal vaginal finesse isolated STAINS Wet Prep Report [] Verified Date/Time: 06/04/2024 21:32 EDT No Trichomonas vaginalis present No clue cells present SUSCEPTIBILITY RESULTS LEGEND: S=Susceptible, N/R=Not Reported, Blank=Data not available, or drug not advisable or tested, I=Intermediate, ESBL=Extended spectrum beta-lactamase, R=Resistant, TFG=Thymidine-dependent strain, LIZETTE=Beta-lactamase positive, ASHLEY=mcg/m;(mg/L), S*=Predicted susceptible interp, R*=Predicted resistant interp EC Antibiotic ASHLEY Dilutn ASHLEY Interp Ampicillin >16 R Ampicillin/ 16/8 I Sulbactam Aztreonam <=4 S Cefazolin 4 S Cefepime <=2 S Ceftazidime <=1 S Ceftazidime/ <=8 S Avibactam Ceftriaxone <=1 S Cefuroxime <=4 S Ciprofloxacin <=0.25 S Ertapenem <=0.5 S Gentamicin <=2 S Levofloxacin <=0.5 S Meropenem <=1 S Piperacillin/ <=8 S Tazobactam Tetracycline <=4 S Tobramycin <=2 S Trimethoprim/ >2/38 R Sulfa Performing Locations R1: This test was performed at: [facility], [address] [place] [address], [id number] , , [address] HospitalComment on above:Performed By: #### [id number] #### [facility] [address] [place] [address] [id number] Hospital Discharge instructions Patient Education 06/04/2024 20:46:04 Vaginal Yeast Infection, Adult Vaginal Yeast Infection, Adult Vaginal yeast infection is a condition that causes vaginal discharge as well as soreness, swelling,and redness (inflammation) of the vagina. This is a common condition. Some women get this infectionfrequently. What are the causes? This condition is caused by a change in the normal balance of the yeast (Oliva) and normal bacteria that live in the vagina. This change causes an overgrowth of yeast, which causes the inflammation. What increases the risk? The condition is more likely to develop in women who: Take antibiotic medicines. Have diabetes. Take control pills. Are . Douche often. Have a weak body defense system (immune system). Have been taking steroid medicines for a long time. Frequently wear tight clothing. What are the signs or symptoms? Symptoms of this condition include: White, thick, creamy vaginal discharge. Swelling, itching, redness, and irritation of the vagina. The lips of the vagina (labia) may be affected as well. Pain or a burning feeling while urinating. Pain during sex. How is this diagnosed? This condition is diagnosed based on: Your medical history. A physical exam. A pelvic exam. Your health care provider will examine a sample of your vaginal discharge under a microscope. Your health care provider may send this sample for testing to confirm the diagnosis. How is this treated? This condition is treated with medicine. Medicines may be hmgz-hib-fcsikoi or prescription. You maybe told to use one or more of the following: Medicine that is taken by mouth (orally). Medicine that is applied as a cream (topically). Medicine that is inserted directly into the vagina (suppository). Follow these instructions at home: Take or apply nznd-idc-jjjxfsr and prescription medicines only as told by your health care provider. Do not use tampons until your health care provider approves. Do not have sex until your infection has cleared. Sex can prolong or worsen your symptoms of infection. Ask your health care provider when it is safe to resume sexual activity. Keep all follow-up visits. This is important. How is this prevented? Do not wear tight clothes, such as pantyhose or tight pants. Wear breathable cotton underwear. Do not use douches, perfumed soap, creams, or powders. Wipe from front to back after using the toilet. If you have diabetes, keep your blood sugar levels under control. Ask your health care provider for other ways to prevent yeast infections. Contact a health care provider if: You have a fever. Your symptoms go away and then return. Your symptoms do not get better with treatment. Your symptoms get worse. You have new symptoms. You develop blisters in or around your vagina. You have blood coming from your vagina and it is not your menstrual period. You develop pain in your abdomen. Summary Vaginal yeast infection is a condition that causes discharge as well as soreness, swelling, and redness (inflammation) of the vagina. This condition is treated with medicine. Medicines may be picx-qpr-jvdtbvq or prescription. Take or apply uaur-yhf-blakgoj and prescription medicines only as told by your health care provider. Do not douche. Resume sexual activity or use of tampons as instructed by your health care provider. Contact a health care provider if your symptoms do not get better with treatment or your symptoms go away and then return. This information is not intended to replace advice given to you by your health care provider. Make sure you discuss any questions you have with your health care provider. Document Revised: 05/23/2021 Document Reviewed: 05/23/2021 [employer] Patient Education 2023 [employer]. Follow Up Care 06/04/2024 18:32:32 With:Jewell Monzon Address: [address] [place] [phone] Business (1) When:06/07/2024 20:36:42 Comments:Use the nystatin cream as prescribed for the next 7 to 10 days. Please follow-up with your primary care doctor and IS TECHNICIAN for further evaluation management. Please return to the ED for any new or worsening symptoms. [facility] 03-19-2025 NoteED Patient Education Note Obstetrics and Gynecology Vaginal Yeast Infection, Adult Vaginal yeast infection is a condition that causes vaginal discharge as well as soreness, swelling,and redness (inflammation) of the vagina. This is a common condition. Some women get this infectionfrequently. What are the causes? This condition is caused by a change in the normal balance of the yeast (Oliva) and normal bacteria that live in the vagina. This change causes an overgrowth of yeast, which causes the inflammation. What increases the risk? The condition is more likely to develop in women who: ??? Take antibiotic medicines. ??? Have diabetes. ??? Take control pills. ??? Are . ??? Douche often. ??? Have a weak body defense system (immune system). ??? Have been taking steroid medicines for a long time. ??? Frequently wear tight clothing. What are the signs or symptoms? Symptoms of this condition include: ??? White, thick, creamy vaginal discharge. ??? Swelling, itching, redness, and irritation of the vagina. The lips of the vagina (labia) may beaffected as well. ??? Pain or a burning feeling while urinating. ??? Pain during sex. How is this diagnosed? This condition is diagnosed based on: ??? Your medical history. ??? A physical exam. ??? A pelvic exam. Your health care provider will examine a sample of your vaginal discharge under a microscope. Your health care provider may send this sample for testing to confirm the diagnosis. How is this treated? This condition is treated with medicine. Medicines may be rgdn-eou-opvkzyz or prescription. You maybe told to use one or more of the following: ??? Medicine that is taken by mouth (orally). ??? Medicine that is applied as a cream (topically). ??? Medicine that is inserted directly into the vagina (suppository). Follow these instructions at home: ??? Take or apply iauf-pga-grshfaa and prescription medicines only as told by your health care provider. ??? Do not use tampons until your health care provider approves. ??? Do not have sex until your infection has cleared. Sex can prolong or worsen your symptoms of infection. Ask your health care provider when it is safe to resume sexual activity. ??? Keep all follow-up visits. This is important. How is this prevented? Do not wear tight clothes, such as pantyhose or tight pants. ??? Wear breathable cotton underwear. ??? Do not use douches, perfumed soap, creams, or powders. ??? Wipe from front to back after using the toilet. ??? If you have diabetes, keep your blood sugar levels under control. ??? Ask your health care provider for other ways to prevent yeast infections. Contact a health care provider if: ??? You have a fever. ??? Your symptoms go away and then return. ??? Your symptoms do not get better with treatment. ??? Your symptoms get worse. ??? You have new symptoms. ??? You develop blisters in or around your vagina. ??? You have blood coming from your vagina and it is not your menstrual period. ??? You develop pain in your abdomen. Summary ??? Vaginal yeast infection is a condition that causes discharge as well as soreness, swelling, andredness (inflammation) of the vagina. ??? This condition is treated with medicine. Medicines may be imbl-eqk-pqaoqio or prescription. ??? Take or apply npoi-aso-hzrqcfc and prescription medicines only as told by your health care provider. ??? Do not douche. Resume sexual activity or use of tampons as instructed by your health care provider. ??? Contact a health care provider if your symptoms do not get better with treatment or your symptoms go away and then return. This information is not intended to replace advice given to you by your health care provider. Make sure you discuss any questions you have with your health care provider. Document Revised: 05/23/2021 Document Reviewed: 05/23/2021 [employer] Patient Education ? [address] [employer] 06-04-2024 Evaluation + Plan noteExtracted from: Title:ED Note Author:Earline Bond DO Date :06/04/24 Vaginal candidiasis (B37.31: Acute candidiasis of vulva and vagina) Orders: nystatin topical, 1 adi, Ointment, Topical, Once, Stop date 06/04/24 20:34:00 EDT, STAT, Start date 06/04/24 20:34:00 EDT nystatin topical, 1 adi, Topical, TID, 15 gram, Refill(s) 0, [place] #24, 165, cm, 06/04/24 18:37:00 EDT, Height/Length Dosing, 81.9, kg, 06/04/24 18:37:00 EDT, Weight Dosing Add on Test Cervical Culture Chlamydia/Gonococcus, ELYSIA Diagnostic Tests Pending * Chlamydia/Gonococcus, ELYSIA 06/04/24 [facility] 03-12-2025 Hospital Discharge instructions Patient Education 05/28/2024 17:19:20 Subchorionic Hematoma Subchorionic Hematoma A hematoma is a collection of blood outside of the blood vessels. A subchorionic hematoma is a collection of blood between the outer wall of the embryo (chorion) and the inner wall of the uterus. This condition can cause vaginal bleeding. Early small hematomas usually shrink on their own and donot affect your baby or . When bleeding starts later in , or if the hematoma is larger or occurs in older women, the condition may be more serious. Larger hematomas increase the chances of miscarriage. This condition also increases the risk of: Premature separation of the placenta from the uterus. Premature () labor. Stillbirth. What are the causes? The exact cause of this condition is not known. It occurs when blood is trapped between the placenta and the uterine wall because the placenta has from the original site of implantation. What increases the risk? You are more likely to develop this condition if: You were treated with fertility medicines. You became through in vitro fertilization (IVF). What are the signs or symptoms? Symptoms of this condition include: Vaginal spotting or bleeding. Abdominal pain. This is rare. Sometimes you may have no symptoms and the bleeding may only be seen when ultrasound images are taken (transvaginal ultrasound). How is this diagnosed? This condition is diagnosed based on a physical exam. This includes a pelvic exam. You may also have other tests, including: Blood tests. Urine tests. Ultrasound of the abdomen. How is this treated? Treatment for this condition can vary. Treatment may include: Watchful waiting. You will be monitored closely for any changes in bleeding. Medicines. Activity restriction. This may be needed until the bleeding stops. A medicine called Rh immunoglobulin. This is given if you have an Rh-negative blood type. It prevents Rh sensitization. Follow these instructions at home: Stay on bed rest if told to do so by your health care provider. Do not lift anything that is heavier than 10 lb (4.5 kg), or the limit that you are told by your health care provider. Track and write down the number of pads you use each day and how soaked (saturated) they are. Do not use tampons. Keep all follow-up visits. This is important. Your health care provider may ask you to have follow-up blood tests or ultrasound tests or both. Contact a health care provider if: You have any vaginal bleeding. You have a fever. Get help right away if: You have severe cramps in your stomach, back, abdomen, or pelvis. You pass large clots or tissue. Save any tissue for your health care provider to look at. You faint. You become light-headed or weak. Summary A subchorionic hematoma is a collection of blood between the outer wall of the embryo (chorion) andthe inner wall of the uterus. This condition can cause vaginal bleeding. Sometimes you may have no symptoms and the bleeding may only be seen when ultrasound images are taken. Treatment may include watchful waiting, medicines, or activity restriction. Keep all follow-up visits. Get help right away if you have severe cramps or heavy vaginal bleeding. This information is not intended to replace advice given to you by your health care provider. Make sure you discuss any questions you have with your health care provider. Document Revised: 11/29/2020 Document Reviewed: 11/29/2020 [employer] Patient Education 2023 [employer]. 05/28/2024 17:19:20 Vaginal Bleeding During , First Trimester Vaginal Bleeding During , First Trimester A small amount of bleeding from the vagina, or spotting, is common during early . Some bleeding may be related to the , and some may not. In many cases, the bleeding is normal and is not a problem. However, bleeding can also be a sign of something serious. Normal things that may cause bleeding during the first trimester: Implantation of the fertilized egg in the lining of the uterus. Rapid changes in blood vessels. This is caused by changes that are happening to the body during . Sex. Pelvic exams. Abnormal things that may cause bleeding during the first trimester include: Infection or inflammation of the cervix. Growths or polyps on the cervix. Miscarriage or threatened miscarriage. that is growing outside of the uterus (ectopic ). A fertilized egg that becomes a mass of tissue (molar ). Tell your health care provider right away if there is any bleeding from your vagina. Follow these instructions at home: Monitoring your bleeding Monitor your bleeding. Pay attention to any changes in your symptoms. Let your health care provider know about any concerns. Try to understand when the bleeding occurs. Does the bleeding start on its own, or does it start after something is done, such as sex or a pelvic exam? Use a diary to record the things you see about your bleeding, including: ?The kind of bleeding you are having. Does the bleeding start and stop irregularly, or is it a constant flow? ?The severity of your bleeding. Is the bleeding heavy or light? ?The number of pads you use each day, how often you change them, and how soaked they are. Tell your health care provider if you pass tissue. He or she may want to see it. Activity Follow instructions from your health care provider about limiting your activity. Ask what activities are safe for you. Do not have sex until your health care provider says that this is safe. If needed, make plans for someone to help with your regular activities. General instructions Take yhaj-knj-qvnzbmn and prescription medicines only as told by your health care provider. Do not take aspirin because it can cause bleeding. Do not use tampons or douche. Keep all follow-up visits. This is important. Contact a health care provider if: You have vaginal bleeding during any part of your . You have cramps or labor pains. You have a fever or chills. Get help right away if: You have severe cramps in your back or abdomen. You pass large clots or a large amount of tissue from your vagina. Your bleeding increases. You feel light-headed or weak, or you faint. You are leaking fluid or have a gush of fluid from your vagina. Summary A small amount of bleeding from the vagina is common during early . Be sure to tell your health care provider about any vaginal bleeding right away. Try to understand when bleeding occurs. Does bleeding occur on its own, or does it occur after something is done, such as sex or pelvic exams? Keep all follow-up visits. This is important. This information is not intended to replace advice given to you by your health care provider. Make sure you discuss any questions you have with your health care provider. Document Revised: 11/25/2020 Document Reviewed: 11/25/2020 [employer] Patient Education 2023 [employer] 05/28/2024 17:19:20 First Trimester of First Trimester of The first trimester of starts on the first day of your last menstrual period until the end of week 12. This is months 1 through 3 of . A week after a sperm fertilizes an egg, the egg will implant into the wall of the uterus and begin to develop into a baby. By the end of 12 weeks, all the baby's organs will be formed and the baby will be 2 3 inches in size. Body changes during your first trimester Your body goes through many changes during . The changes vary and generally return to normal after your baby is born. Physical changes You may gain or lose weight. Your breasts may begin to grow larger and become tender. The tissue that surrounds your nipples (areola) may become darker. Dark spots or blotches (chloasma or mask of ) may develop on your face. You may have changes in your hair. These can include thickening or thinning of your hair or changesin texture. Health changes You may feel nauseous, and you may vomit. You may have heartburn. You may develop headaches. You may develop constipation. Your gums may bleed and may be sensitive to brushing and flossing. Other changes You may tire easily. You may urinate more often. Your menstrual periods will stop. You may have a loss of appetite. You may develop cravings for certain kinds of food. You may have changes in your emotions from day to day. You may have more vivid and strange dreams. Follow these instructions at home: Medicines Follow your health care provider's instructions regarding medicine use. Specific medicines may be either safe or unsafe to take during . Do not take any medicines unless told to by your health care provider. Take a vitamin that contains at least 600 micrograms (mcg) of folic acid. Eating and drinking Eat a healthy diet that includes fresh fruits and vegetables, whole grains, good sources of proteinsuch as meat, eggs, or tofu, and low-fat dairy products. Avoid raw meat and unpasteurized juice, milk, and cheese. These carry germs that can harm you and your baby. If you feel nauseous or you vomit: ?Eat 4 or 5 small meals a day instead of 3 large meals. ?Try eating a few soda crackers. ?Drink liquids between meals instead of during meals. You may need to take these actions to prevent or treat constipation: ?Drink enough fluid to keep your urine pale yellow. ?Eat foods that are high in fiber, such as beans, whole grains, and fresh fruits and vegetables. ?Limit foods that are high in fat and processed sugars, such as fried or sweet foods. Activity Exercise only as directed by your health care provider. Most people can continue their usual exercise routine during . Try to exercise for 30 minutes at least 5 days a week. Stop exercising if you develop pain or cramping in the lower abdomen or lower back. Avoid exercising if it is very hot or humid or if you are at high altitude. Avoid heavy lifting. If you choose to, you may have sex unless your health care provider tells you not to. Relieving pain and discomfort Wear a good support bra to relieve breast tenderness. Rest with your legs elevated if you have leg cramps or low back pain. If you develop bulging veins (varicose veins) in your legs: ?Wear support hose as told by your health care provider. ?Elevate your feet for 15 minutes, 3 4 times a day. ?Limit salt in your diet. Safety Wear your seat belt at all times when driving or riding in a car. Talk with your health care provider if someone is verbally or physically abusive to you. Talk with your health care provider if you are feeling sad or have thoughts of hurting yourself. Lifestyle Do not use hot tubs, steam rooms, or saunas. Do not douche. Do not use tampons or scented sanitary pads. Do not use herbal remedies, alcohol, illegal drugs, or medicines that are not approved by your health care provider. Chemicals in these products can harm your baby. Do not use any products that contain nicotine or tobacco, such as cigarettes, e- cigarettes, and chewing tobacco. If you need help quitting, ask your health care provider. Avoid cat litter boxes and soil used by cats. These carry germs that can cause defects in thebaby and possibly loss of the unborn baby (fetus) by miscarriage or stillbirth. General instructions During routine visits in the first trimester, your health care provider will do a physicalexam, perform necessary tests, and ask you how things are going. Keep all follow-up visits. This isimportant. Ask for help if you have counseling or nutritional needs during . Your health care provider can offer advice or refer you to specialists for help with various needs. Schedule a dentist appointment. At home, brush your teeth with a soft toothbrush. Floss gently. Write down your questions. Take them to your visits. Where to find more information [place] Association: americanpregnancy.org [employer]: acog.org/en/Womens%20Health/ Office on Women's Health: womenshealth.gov/ Contact a health care provider if you have: Dizziness. A fever. Mild pelvic cramps, pelvic pressure, or nagging pain in the abdominal area. Nausea, vomiting, or diarrhea that lasts for 24 hours or longer. A bad-smelling vaginal discharge. Pain when you urinate. Known exposure to a contagious illness, such as chickenpox, measles, Zika virus, HIV, or hepatitis. Get help right away if you have: Spotting or bleeding from your vagina. Severe abdominal cramping or pain. Shortness of breath or chest pain. Any kind of trauma, such as from a fall or a car crash. New or increased pain, swelling, or redness in an arm or leg. Summary The first trimester of starts on the first day of your last menstrual period until the end of week 12 (months 1 through 3). Eating 4 or 5 small meals a day rather than 3 large meals may help to relieve nausea and vomiting. Do not use any products that contain [...] with your health care provider. Document Revised: 08/11/2020 Document Reviewed: 06/17/2020 [employer] Patient Education 2023 [employer]. Follow Up Care 05/28/2024 15:05:21 With:Andrey ARTHUR Address: [address] [place] [address] Business (1) When:05/31/2024 17:11:09 With:Jewell Monzon Address: [facility] [address] [facility] [place] [address] [phone] Business (1) When:Within 3 Day(s) [facility] 03-12-2025 NoteED Patient Education Note Obstetrics and Gynecology Subchorionic Hematoma A hematoma is a collection of blood outside of the blood vessels. A subchorionic hematoma is a collection of blood between the outer wall of the embryo (chorion) and the inner wall of the uterus. This condition can cause vaginal bleeding. Early small hematomas usually shrink on their own and donot affect your baby or . When bleeding starts later in , or if the hematoma is larger or occurs in older women, the condition may be more serious. Larger hematomas increase the chances of miscarriage. This condition also increases the risk of: ??? Premature separation of the placenta from the uterus. ??? Premature () labor. ??? Stillbirth. What are the causes? The exact cause of this condition is not known. It occurs when blood is trapped between the placenta and the uterine wall because the placenta has from the original site of implantation. What increases the risk? You are more likely to develop this condition if: ??? You were treated with fertility medicines. ??? You became through in vitro fertilization (IVF). What are the signs or symptoms? Symptoms of this condition include: ??? Vaginal spotting or bleeding. ??? Abdominal pain. This is rare. Sometimes you may have no symptoms and the bleeding may only be seen when ultrasound images are taken (transvaginal ultrasound). How is this diagnosed? This condition is diagnosed based on a physical exam. This includes a pelvic exam. You may also have other tests, including: ??? Blood tests. ??? Urine tests. ??? Ultrasound of the abdomen. How is this treated? Treatment for this condition can vary. Treatment may include: ??? Watchful waiting. You will be monitored closely for any changes in bleeding. ??? Medicines. ??? Activity restriction. This may be needed until the bleeding stops. ??? A medicine called Rh immunoglobulin. This is given if you have an Rh- negative blood type. It prevents Rh sensitization. Follow these instructions at home: ??? Stay on bed rest if told to do so by your health care provider. ??? Do not lift anything that is heavier than 10 lb (4.5 kg), or the limit that you are told by your health care provider. ??? Track and write down the number of pads you use each day and how soaked (saturated) they are. ??? Do not use tampons. ??? Keep all follow-up visits. This is important. Your health care provider may ask you to have follow-up blood tests or ultrasound tests or both. Contact a health care provider if: ??? You have any vaginal bleeding. ??? You have a fever. Get help right away if: ??? You have severe cramps in your stomach, back, abdomen, or pelvis. ??? You pass large clots or tissue. Save any tissue for your health care provider to look at. ??? You faint. ??? You become light-headed or weak. Summary ??? A subchorionic hematoma is a collection of blood between the outer wall of the embryo (chorion)and the inner wall of the uterus. ??? This condition can cause vaginal bleeding. ??? Sometimes you may have no symptoms and the bleeding may only be seen when ultrasound images aretaken. ??? Treatment may include watchful waiting, medicines, or activity restriction. ??? Keep all follow-up visits. Get help right away if you have severe cramps or heavy vaginal bleeding. This information is not intended to replace advice given to you by your health care provider. Make sure you discuss any questions you have with your health care provider. Document Revised: 11/29/2020 Document Reviewed: 11/29/2020 [employer] Patient Education ? 2023 [employer]. Vaginal Bleeding During , First Trimester A small amount of bleeding from the vagina, or spotting, is common during early . Some bleeding may be related to the , and some may not. In many cases, the bleeding is normal and is not a problem. However, bleeding can also be a sign of something serious. Normal things that may cause bleeding during the first trimester: ??? Implantation of the fertilized egg in the lining of the uterus. ??? Rapid changes in blood vessels. This is caused by changes that are happening to the body duringpregnancy. ??? Sex. ??? Pelvic exams. Abnormal things that may cause bleeding during the first trimester include: ??? Infection or inflammation of the cervix. ??? Growths or polyps on the cervix. ??? Miscarriage or threatened miscarriage. ??? that is growing outside of the uterus (ectopic ). ??? A fertilized egg that becomes a mass of tissue (molar ). Tell your health care provider right away if there is any bleeding from your vagina. Follow these instructions at home: Monitoring your bleeding Monitor your bleeding. ??? Pay attention to any changes in your symptoms. Let your health care provider know abou (more content not included)...[facility]02-[facility]25 History of Present illness Narrative* NELSON Guzman - 05/07/2024 2:30 PM EST Reason for Appointment: Patient ID: Fabrizio Carballo is a 23 y.o. female who presents for Vaginitis/Bacterial Vaginosis and positive test Patient presents today for Acute Visit. MEDICATIONS Current Outpatient Medications Medication Instructions MV-Min-Fe Fum-FA-DHA ( 1 PO) 1 each, Daily valACYclovir (VALTREX) 500 mg, Oral, Daily ALLERGIES Allergies Allergen Reactions Aripiprazole Hallucinations, Rash and Unknown Other Reaction(s): Hallucinating Acetaminophen Hives Hydrocodone Hives Hydrocodone-Acetaminophen Rash and Unknown Meloxicam Rash and Unknown Other Reaction(s): Constipation PROBLEMS Active Ambulatory Problems Diagnosis Date Noted [...] Exam Constitutional: Appearance: Normal appearance. She is normal weight. HENT: Head: Normocephalic. Cardiovascular: Rate and Rhythm: Normal rate. Pulses: Normal pulses. Pulmonary: Effort: Pulmonary effort is normal. Breath sounds: Normal breath sounds. Abdominal: Palpations: Abdomen is soft. Musculoskeletal: General: Normal range of motion. Neurological: General: No focal deficit present. Mental Status: She is alert and oriented to person, place, and time. Psychiatric: Mood and Affect: Mood normal. Behavior: Behavior normal. Thought Content: Thought content normal. Judgment: Judgment normal. Vitals and nursing note reviewed. Vitals: Estimated body mass index is 30.92 kg/m as calculated from the following: Height as of 10/31/23: 5' 4 . Weight as of this encounter: 180 lb 1.9 oz. BP: 120/70 Patient's last menstrual period was 03/26/2024. ASSESSMENT & PLAN ICD-10-CM 1. Yeast infection B37.9 2. Subacute vaginitis N76.1 3. examination or test, positive result Z32.01 hCG, quantitative, Patient presents for er follow up post vaginitis, she was seen by Dr Batista on 05/05/24 for annual. She is newly with quant of 296 on 05/01/24. We will order repeat quant and pt will schedule for OB intake as she states she would like to come here for Documented by NELSON Guzman on behalf of: NELSON Guzman documented in this encounterCox [id number] Evaluation + Plan note Diagnostic Tests Pending * Urine Culture 05/05/24 * PAP [id number] 05/05/24 [facility] 12-26-2024 Hospital Discharge instructions Patient Education 03/13/2024 16:38:47 Managing Anxiety, [...] does not go away even after the eventis over, and it can become a long- term (chronic) worry. Lowering stress and anxiety Talk with your health care provider or a counselor to learn more about lowering anxiety and stress.They may suggest tension-reduction techniques, such as: Music. [...] Therapy can help you and others better understandyour anxiety. How to recognize changes in your anxiety Everyone responds differently to treatment for anxiety. Recovery from anxiety happens when symptomslessen and stop interfering with your daily life at home or work. This may mean that you will startto: Have better concentration and focus. Worry will [...] exercise should increase your heart rate and makeyou sweat (moderate-intensity exercise). ?Do strengthening exercises at [...] your provider. Avoid caffeine, alcohol, and certain imml-aof-jpsnfyn cold medicines. These may make you feel worse. Ask your pharmacist which medicines to avoid. General instructions Take ivol-ipm-ouoyjkh and prescription medicines only as told by [...] support groups near you: Mental Health [place]: mentaljoint [facility] hospitalamer[facility].net Anxiety and Depression Association of [place] (ADAA): adaa.org National [place] on Mental Illness (CAROLINE): caroline.org Contact a health care provider if: You [...] yourself or others, or have thoughts about takingyour own life. Go to your nearest emergency room or: Call 911. Call the National Suicide Prevention Lifeline at or 362. This is open 24 hours a day. Text the Crisis Text Line at 725292. This information is not intended to replace advice given to you by your health care provider. Make sure you discuss any questions you have with your health care provider. Document Revised: 12/12/2022 Document Reviewed: 06/26/2021 [employer] Patient Education 2023 [employer]. 03/13/2024 16:38:44 Managing Depression, Adult Managing Depression, [...] the level of everyday stress. Stress can makedepression symptoms worse. You may believe your symptoms [...] pray, or go to a place of confucianism. Practice deep breathing. To do this, inhale [...] them. Therapists can offer training in these techniques.Do these things to help manage stress: Keep [...] sugar, or salt (sodium). General instructions Take wxsf-bua-bykfthv and prescription medicines only as told by [...] (ADAA): adaa.org Mental Health Mira: mentalhealthamerica.net National Grabill on Mental Illness: caroline.org Contact a health care provider if: You [...] yourself or others, or have thoughts about takingyour own life. Go to your nearest emergency room or: Call 911. Call the National Suicide Prevention Lifeline at or 088. This is open 24 hours a day. Text the Crisis Text Line at 378677. This information is not intended to replace advice given to you by your health care provider. Make sure you discuss any questions you have with your health care provider. Document Revised: 07/11/2022 Document Reviewed: 07/11/2022 [employer] Patient Education 2023 [employer]. Follow Up Care 03/13/2024 11:09:59 With:Nicolás MINA, CELLULAR TOWER CLIMBER-Jewell LUCIANO Address: [address] [place] [phone] When:Within 1 Month(s) [facility] [place] 12-26-2024 NotePatient Education Mental and Behavioral Health Managing Anxiety, [...] does not go away even after the eventis over, and it can become a long- term (chronic) worry. Lowering stress and anxiety Talk with your health care provider or a counselor to learn more about lowering anxiety and stress.They may suggest tension-reduction techniques, such as: ??? [...] what triggers your reaction and then learn waysto manage your response. ??? Thinking about how [...] Therapy can help you and others better understandyour anxiety. How to recognize changes in your anxiety Everyone responds differently to treatment for anxiety. Recovery from anxiety happens when symptomslessen and stop interfering with your daily life at home or work. This may mean that you will startto: ??? Have better concentration and focus. Worry [...] not use any products (more content not included)...[facility]12-[facility] Hospital Discharge instructions Patient Education 03/02/2024 14:18:06 Panic Attack [...] and infections. Other causes may include: Certain cohu-esj-tmavxqx and prescription medicines. Supplements that increase anxiety. [...] by your health care provider. During the assessment,your health care provider will ask questions about: [...] reduce how severe the attacks are, and loweranxiety. If the cause is a medicine, your [...] hard liquor (44 mL). General instructions Take aqop-afb-qgcasjy and prescription medicines only as told by [...] you need help quitting, ask your health careprovider. Keep all follow-up visits. This is important. Panic attacks may have underlying physical or emotional problems that take time to accurately diagnose. Where to find more information Substance Abuse and Mental Health Services Administration (SAMHSA): samhsa.gov National Cecil of Mental Health ([facility]): www.nimh.nih.gov Contact a health care provider if: Your symptoms do not improve, or they get worse. You are not able to take your medicine as prescribed because of side effects. Get help right away if: You have thoughts about hurting yourself or others. Get help right away if you feel like you may hurt yourself or others, or have thoughts about takingyour own life. Go to your nearest emergency room or: Call 911. Call the National Suicide Prevention Lifeline at or 919. This is open 24 hours a day. Text the Crisis Text Line at 743234. Summary A panic attack is a sudden [...] provider. Document Revised: 10/13/2021 Document Reviewed: 10/13/2021 [employer] Patient Education 2023 [employer]. 03/02/2024 14:18:02 Managing Anxiety, Adult Managing Anxiety, [...] does not go away even after the eventis over, and it can become a long- term (chronic) worry. Lowering stress and anxiety Talk with your health care provider or a counselor to learn more about lowering anxiety and stress.They may suggest tension-reduction techniques, such as: Music. [...] Therapy can help you and others better understandyour anxiety. How to recognize changes in your anxiety Everyone responds differently to treatment for anxiety. Recovery from anxiety happens when symptomslessen and stop interfering with your daily life at home or work. This may mean that you will startto: Have better concentration and focus. Worry will [...] exercise should increase your heart rate and makeyou sweat (moderate-intensity exercise). ?Do strengthening exercises at [...] your provider. Avoid caffeine, alcohol, and certain dvoy-vki-jedpdjg cold medicines. These may make you feel worse. Ask your pharmacist which medicines to avoid. General instructions Take mozh-rki-jpilhaz and prescription medicines only as told by [...] Depression Association of Mira (ADAA): adaa.org National Grabill on Mental Illness (CAROLINE): caroline.org Contact a health care provider if: You [...] yourself or others, or have thoughts about takingyour own life. Go to your nearest emergency room or: Call 911. Call the National Suicide Prevention Lifeline at or 575. This is open 24 hours a day. Text the Crisis Text Line at 114047. This information is not intended to replace advice given to you by your health care provider. Make sure you discuss any questions you have with your health care provider. Document Revised: 12/12/2022 Document Reviewed: 06/26/2021 [employer] Patient Education 2023 [employer] Follow Up Care 02/29/2024 07:35:35 With:Nicolás MINA, CELLULAR TOWER CLIMBER-MUSTAPHA, Jewell Alcala Address: [address] [place] [phone] When:Within 1 Month(s) [facility] [place] 12-15-2024 NotePatient Education Mental and Behavioral Health Panic Attack [...] infections. Other causes may include: ??? Certain xysl-hgh-mejsjgq and prescription medicines. ??? Supplements that increase [...] by your health care provider. During the assessment,your health care provider will ask questions about: ??? Your history of anxiety, depression, and panic attacks. ??? Your medical history. ??? Whether you drink alcohol, use drugs, take supplements, or take medicines. Be honest about yoursubstance use. Your health care provider may also: [...] may tell you to stop the medicine, changeyour dose, or take a different medicine. ??? [...] liquor (44 mL). General instructions ??? Take cqti-pmc-elqjrow and prescription medicines only as told by [...] quitting, ask your hea (more content not included)...[facility]12[facility] Hospital Discharge instructions Patient Education 02/28/2024 18:25:50 Panic Attack [...] and infections. Other causes may include: Certain gzvl-lju-blxlvsv and prescription medicines. Supplements that increase anxiety. [...] by your health care provider. During the assessment,your health care provider will ask questions about: [...] reduce how severe the attacks are, and loweranxiety. If the cause is a medicine, your [...] hard liquor (44 mL). General instructions Take xuhn-lcn-yujwdpv and prescription medicines only as told by [...] you need help quitting, ask your health careprovider. Keep all follow-up visits. This is important. Panic attacks may have underlying physical or emotional problems that take time to accurately diagnose. Where to find more information Substance Abuse and Mental Health Services Administration (SAMHSA): samhsa.gov National Cecil of Mental Health ([facility]): www.nimh.nih.gov Contact a health care provider if: Your symptoms do not improve, or they get worse. You are not able to take your medicine as prescribed because of side effects. Get help right away if: You have thoughts about hurting yourself or others. Get help right away if you feel like you may hurt yourself or others, or have thoughts about takingyour own life. Go to your nearest emergency room or: Call 911. Call the National Suicide Prevention Lifeline at or 264. This is open 24 hours a day. Text the Crisis Text Line at 627594. Summary A panic attack is a sudden [...] provider. Document Revised: 10/13/2021 Document Reviewed: 10/13/2021 [employer] Patient Education 2023 [employer]. 02/28/2024 18:25:40 Managing Anxiety, Adult Managing Anxiety, [...] does not go away even after the eventis over, and it can become a long- term (chronic) worry. Lowering stress and anxiety Talk with your health care provider or a counselor to learn more about lowering anxiety and stress.They may suggest tension-reduction techniques, such as: Music. [...] Therapy can help you and others better understandyour anxiety. How to recognize changes in your anxiety Everyone responds differently to treatment for anxiety. Recovery from anxiety happens when symptomslessen and stop interfering with your daily life at home or work. This may mean that you will startto: Have better concentration and focus. Worry will [...] exercise should increase your heart rate and makeyou sweat (moderate-intensity exercise). ?Do strengthening exercises at [...] your provider. Avoid caffeine, alcohol, and certain paqe-uwz-spjazgk cold medicines. These may make you feel worse. Ask your pharmacist which medicines to avoid. General instructions Take rdpg-mbj-kvxeweh and prescription medicines only as told by [...] Depression Association of Mira (ADAA): adaa.org National Grabill on Mental Illness (CAROLINE): caroline.org Contact a health care provider if: You [...] yourself or others, or have thoughts about takingyour own life. Go to your nearest emergency room or: Call 911. Call the National Suicide Prevention Lifeline at or 585. This is open 24 hours a day. Text the Crisis Text Line at 873618. This information is not intended to replace advice given to you by your health care provider. Make sure you discuss any questions you have with your health care provider. Document Revised: 12/12/2022 Document Reviewed: 06/26/2021 [employer] Patient Education 2023 [employer] Follow Up Care 02/27/2024 14:35:07 With:Nicolás MINA, CELLULAR TOWER CLIMBER-Jewell LUCIANO Address: [address] [place] [phone] When:Within 1 Month(s) [facility] [place] 12-12-2024 NotePatient Education Mental and Behavioral Health Panic Attack [...] infections. Other causes may include: ??? Certain ghkc-jfm-wusvghm and prescription medicines. ??? Supplements that increase [...] by your health care provider. During the assessment,your health care provider will ask questions about: ??? Your history of anxiety, depression, and panic attacks. ??? Your medical history. ??? Whether you drink alcohol, use drugs, take supplements, or take medicines. Be honest about yoursubstance use. Your health care provider may also: [...] may tell you to stop the medicine, changeyour dose, or take a different medicine. ??? [...] liquor (44 mL). General instructions ??? Take vcng-pzs-wzsykiv and prescription medicines only as told by [...] quitting, ask your hea (more content not included)...[facility]07[facility] Hospital Discharge instructions Patient Education 10/07/2023 14:07:55 Managing Anxiety, [...] both good and bad. Most stress will lastjust a few hours, but stress can be [...] effectively so that it does not lead annie anxious response. Talk with your health care provider or a counselor to learn more about reducing anxiety and stress.He or she may suggest tension reduction techniques, [...] phrase, or sacred image that means something toyou and brings you peace. Deep breathing. To [...] for anxiety. Recovery from anxiety happens when symptomsdecrease and stop interfering with your daily activities [...] exercise should increase your heart rate and makeyou sweat (moderate-intensity exercise). ?Strengthening exercises at least [...] you need help quitting, ask your health careprovider. Avoid caffeine, alcohol, and certain ezam-zfk-fbrrxlz cold medicines. These may make you feel worse. Ask your pharmacist which medicines to avoid. General instructions Take qaia-jpe-wknakti and prescription medicines only as told by [...] Depression Association of Mira (ADAA): www.adaa.org National Grabill on Mental Illness (CAROLINE): www.caroline.org Contact a health care provider if: [...] department or: Call your local emergency services (1 in the [place] Call a suicide crisis helpline, such as the National Suicide Prevention Lifeline at or 383 in the [place] This is open 24 hours a day in the [place] Text the Crisis Text Line at 930893 (in the [place].). Summary Taking steps to [...] provider. Document Revised: 09/28/2021 Document Reviewed: 06/26/2021 [employer] Patient Education 2022 [employer]. 10/07/2023 14:07:51 Managing Depression, Adult Managing Depression, [...] pray, or go to a place of confucianism. Do some deep breathing. To do this, [...] sugars, or salt (sodium). General instructions Take vznp-coz-hvfcdxy and prescription medicines only as told by [...] (ADAA): www.adaa.org Mental Health Mira: www.mentalhealthamerica.net National Grabill on Mental Illness: www.caroline.org Contact a health [...] department or: Call your local emergency services (849 in the [place] Call a suicide crisis helpline, such as the National Suicide Prevention Lifeline at or 839 in the [place] This is open 24 hours a day in the [place] Text the Crisis Text Line at 225844 (in the [place] Summary If you are [...] provider. Document Revised: 09/28/2021 Document Reviewed: 01/14/2020 [employer] Patient Education 2022 [employer] 10/07/2023 14:07:48 Acute Back Pain, Adult [...] home: Managing pain, stiffness, and swelling Take nmie-dvy-hdpwqyy and prescription medicines only as told by [...] told by your health care provider. Use theheat source that your health care provider recommends, [...] each day. Do not sit, drive, or miniature model maker one place for more than 30 minutes [...] provider. Exercising helps your back heal faster andhelps prevent back injuries by keeping muscles strong [...] lying on your side with your knees slightlybent. If you lie on your back, put a pillow under your knees. Keep your head and neck in a straight line with your spine (neutral position) when using electronicequipment like smartphones or pads. To do this: [...] put less stress on your back. Take nszx-unt-ssdliti and prescription medicines only as told by your health care provider, and apply heat or ice as told. This information is not intended to replace advice given to you by your health care provider. Make sure you discuss any questions you have with your health care provider. Document Revised: 05/27/2021 Document Reviewed: 05/27/2021 [employer] Patient Education 2022 [employer]. Follow Up Care 10/03/2023 11:33:15 With:Nicolás MINA, CELLULAR TOWER CLIMBER-HYDROLOGIC ENGINEER, Jewell Alcala Address: [address] [place] [phone] When:Within 1 Month(s) [facility] [place] 07-21-2024 NotePatient Education Mental and Behavioral Health Managing Anxiety, [...] both good and bad. Most stress will lastjust a few hours, but stress can be [...] effectively so that it does not lead annie anxious response. Talk with your health care provider or a counselor to learn more about reducing anxiety and stress.He or she may suggest tension reduction techniques, [...] not feeling guilty about spending your time inthis way. ? Doing visual imagery. This involves [...] for anxiety. Recovery from anxiety happens when symptomsdecrease and stop interfering with your daily activities [...] Lifestyle (Inserted Image. Rashmi (more content not included)...[facility] 10-07-2023 Hospital Discharge instructions Patient Education 10/06/2023 23:56:56 Tension Headache, [...] these instructions at home: Managing pain Take acss-mif-geuvvva and prescription medicines only as told by [...] as told by your health care provider. Usethe heat source that your health care provider [...] provider. Document Revised: 12/02/2020 Document Reviewed: 12/02/2020 [employer] Patient Education 2022 [employer]. 10/06/2023 23:56:56 Urinary Tract Infection, Adult Urinary Tract Infection, Adult A urinary tract infection (UTI) is an infection of any part of the urinary tract. The urinary tractincludes the kidneys, ureters, bladder, and urethra. These organs make, store, and get rid of urinein the body. An upper UTI affects the [...] Treatment for this condition includes: Antibiotic medicine. Rffk-srh-nhyljka medicines to treat discomfort. Drinking enough water to stay hydrated. If you have frequent infections or have other conditions such as a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 AUTHOR AUTHOR'S ORGANIZ ATION 10/25/2024 [facility] DATE CREATED AUTHOR AUTHOR'S ORGANIZ ATION 11/01/2024 [facility] DATE CREATED AUTHOR AUTHOR'S ORGANIZ ATION 11/01/2024 [facility] Goals (unrecognized section and content) Type Treatment Intervention Code Status: Full Code Goals may be documented in an alternate section FOR RECORDS PERTAINING TO PATIENTS [...] BE BASED ON THE PRIMARY CLINICAL RECORDS. [facility] [employer] provides no warranty or guarantee of the accuracy or completeness of information in this document.
== END 2024-11-04 10:48 | disposition home or self-care (01) ==
LOC: US 10:00 → FBC 10:02
PROVIDERS: Visit Provider Nurse Practitioner Family
DX: O36.0190 Maternal care for anti-D [Rh] antibodies, unspecified trimester, not applicable or unspecified (principal); O26.899 Other specified pregnancy related conditions, unspecified trimester; Z67.91 Unspecified blood type, Rh negative; D50.8 Other iron deficiency anemias
CPT/HCPCS: 76818

== ENCOUNTER 2024-11-07 13:31 | Outpatient (OUT) | payer OTHER, SELFPAY ==
--- OUTSIDE RECORDS SUMMARY | 2023-07-04 04:00 | XMS_ITS ---
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 Tooth pain. * Medical History: Objective: * Vitals: Assessment: Plan: * Treatment: * Images: * Electronic signature of Kenisha Batista DDS on 11/07/2024 at 01:33 PM EDT Sign off status: Pending * Provider: Mary Batista DDS Date: 07/04/2023 Generated for Candida callaway/Lima/eTransmitting on: 0 11/07/2024 01:33 PM EDT
--- OUTSIDE RECORDS SUMMARY | 2024-10-30 13:00 | XMS_ITS | Encounter Summary ---
Author Organization [facility] Address [address] [facility] [place] [address] Care Team Providers Care Foreign Exchange Trader Name Role Phone Jewell Monzon MD Primary Care Provider [phone] Reason for Visit * Reason Comments Routine Visit Encounter Details Date Type Department Care Team (Late st Contact Info) Description 10/30/2024 1:00 PM EDT Routine [facility] [address] [place] [address] Michelle Segura NP [address] [facility] [place] [address] Third trimester ([facility]); 30 weeks gestation of ([facility]); 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[facility]); Rh negative state in antepartum period, unspecified trimester ([facility]); Other iron deficiency anemia Social History Tobacco Use Types Packs/Day Years Used Date Smoking Tobacco: Never Assessed Estimated Date of Delivery Comme nts Yes 01/04/2025 Based on Ultraso und Sex and Gender Information Value Date Recorded Sex Assigned at Not on file Legal Sex Female 10:13 PM EDT Gender Identity Not on file Sexual Orientation Not on file documented as of this encounter Last Filed Vital Signs Vital Sign Reading Time Taken Comments Blood Pressure 122/82 10/30/2024 1:30 PM EDT Pulse - - Temperature - - Respiratory Rate - - Oxygen Saturation - - Inhaled Oxygen Concentration - - Weight 91.4 kg (201 lb 8 oz) 10/30/2024 1:30 PM EDT Height - - Body Mass Index 34.59 10/31/2023 2:22 PM EDT documented in this encounter Progress Notes * Michelle Segura NP - 10/30/2024 1:00 PM EDT Reason for Appointment: Patient ID: John Carballo is a 24 y.o. female who presents for Routine Visit Patient presents today for Return OB appointment. MEDICATIONS Current Outpatient Medications Medication Instructions iron polysaccharides (PROFE) 391.3 mg, Oral, Daily magnesium oxide (MAG-OX) 400 mg, Oral, Daily MV-Min-Fe Fum-FA-DHA ( 1 PO) 1 each, Daily valACYclovir (VALTREX) 500 mg, Oral, Daily ALLERGIES Allergies Allergen Reactions Aripiprazole Hallucinations, Rash and Unknown Other Reaction(s): Hallucinating Acetaminophen Hives Hydrocodone Hives Hydrocodone-Acetaminophen Rash and Unknown Other Reaction(s): Unknown Meloxicam Rash and Unknown Other Reaction(s): Constipation Other Reaction(s): hives PROBLEMS Active Ambulatory Problems Diagnosis Date Noted Genital herpes 10/10/2022 Smoker 10/17/2022 Vaginal infection 10/17/2022 Vaginal discharge 10/17/2022 Resolved Ambulatory Problems Diagnosis Date Noted No Resolved Ambulatory Problems Past Medical History: Diagnosis Date Herpes simplex Yeast infection HISTORY PAST MEDICAL HISTORY SOCIAL HISTORY Past Medical History: Diagnosis Date Genital herpes Herpes simplex Yeast infection Social History Tobacco Use Smoking status: Not on file Smokeless tobacco: Not on file Substance Use Topics Alcohol use: Not on file Drug use: Not on file FAMILY HISTORY Family History Problem Relation Name Age of Onset Diabetes Other type 2 SURGICAL HISTORY Past Surgical History: Procedure Laterality Date APPENDECTOMY 04/2023 SECTION, CLASSIC CT ANGIOGRAM HEART CORONARY 04/22/2021 CT ANGIOGRAM TAVR 04/22/2021 MANDIBLE SURGERY jaw repair REVIEW OF SYSTEMS Review of Systems: Review of Systems Constitutional: Negative. HENT: Negative. Eyes: Negative. Respiratory: Negative. Cardiovascular: Negative. Gastrointestinal: Negative. Genitourinary: Negative. Musculoskeletal: Negative. Skin: Negative. Neurological: Negative. All other systems reviewed and are negative. Hematological: Negative. Endocrine: Negative. Allergic/Immunologic: Negative. OBJECTIVE Objective: Physical Exam Constitutional: Appearance: Normal appearance. She is well-developed. Cardiovascular: Rate and Rhythm: Normal rate and regular rhythm. Pulmonary: Effort: Pulmonary effort is normal. Breath sounds: Normal breath sounds. Abdominal: General: Bowel sounds are normal. There is no distension. Palpations: Abdomen is soft. Tenderness: There is no abdominal tenderness. There is no guarding or rebound. Musculoskeletal: General: No swelling. Normal range of motion. Right lower leg: No edema. Left lower leg: No edema. Neurological: Mental Status: She is alert and oriented to person, place, and time. Skin: General: Skin is warm and dry. Psychiatric: Mood and Affect: Mood normal. Behavior: Behavior normal. Vitals and nursing note reviewed. Exam conducted with a research and development researcher present. Vitals: Estimated body mass index is 34.59 kg/m?? as calculated from the following: Height as of 24: 5' 4 . Weight as of this encounter: 201 lb 8 oz. BP: 122/82 No LMP recorded. Patient is . ASSESSMENT & PLAN ICD-10-CM 1. Third trimester ([facility]) Z34.93 magnesium oxide (Mag-Ox) 400 MG tablet 2. 30 weeks gestation of ([facility]) Z3A.30 3. 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 Rh negative state in antepartum period, unspecified trimester ([facility]) O26.899 iron polysaccharides (ProFe) 391.3 (180 Fe) MG capsule Z67.91 US biophysical profile w non stress test 5. Other iron deficiency anemia D50.8 Ferritin Transferrin iron polysaccharides (ProFe) 391.3 (180 Fe) MG capsule US biophysical profile w non stress test Transferrin Patient presents today for a routine obstetrics appointment. Patient is currently 30w4d with a Estimated Date of Delivery: 01/04/25. Patient advised of CBC results and that Iron supplement is required. Sent ProFe to patients pharmacy and will also have desk nurse send orders for Iron Infusions. Patient given order for NST/BPP to have started. Patient given orders to have Ferritin and Transferrin drawn incase needed for iron infusions. Discussed Rhogam with patient and that Maternal Medicine advised against receiving rhogam injection. Patient to return to clinic in 2 weeks. Documented by Viki Douglass LPN on behalf of: Michelle Segura NP documented in this encounter Plan of Treatment Upcoming Encounters Date Type Department Care Team (Late st Contact Info) Description 11/11/2024 10:30 AM EDT Routine [facility] [address] [place] [address] Andrey Arthur DO [address] [facility] [address] [place], [id number] 11/25/2024 11:30 AM EDT Routine [facility] [address] [place] [address] Susan Patterson PA [address] [facility] [place] [address] Scheduled Orders Name Type Priority Associated Diagnoses Orde r Schedule Ferritin Lab Routine Other iron deficiency anemia Ordered: 10/30/2024 Transferrin Lab Routine Other iron deficiency anemia Expected: 10/30/2024 (Approximate), Expires: 10/30/2025 biophysical profile w non stress test Imaging Routine 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[facility]) Rh negative state in antepartum period, unspecified trimester ([facility]) Other iron deficiency anemia Expected: 10/30/2024 (Approximate), Expires: 05/02/2025 documented as of this encounter Visit Diagnoses Diagnosis Third trimester ([facility]) state, incidental 30 weeks gestation of ([facility]) 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[facility]) Rh negative state in antepartum period, unspecified trimester ([facility]) Other iron deficiency anemia documented in this encounter Care Teams Foreign Exchange Trader Relationship Specialty Start Date End Date Jewell Monzon MD [address] [place] [address] [place] [address] PCP - General Family Medicine 08/08/23 documented as of this encounter
--- OUTSIDE RECORDS SUMMARY | 2024-11-07 13:33 | XMS_ITS | Encounter Summary ---
Author Organization [facility] Address [address] [facility] [place] [address] Care Team Providers Care Binding Nicker Name Role Phone Jewell Monzon MD Primary Care Provider [phone] Encounter Details Date Type Department Care Team (Late st Contact Info) Description 08/27/2024 External Result Encounter [facility] ABBOTT [address] [place] [address] Reshma Arthur, DO [address] [place] Nichol [place], [place] [address] Social History Tobacco Use Types Packs/Day Years [...] 10:30 AM EDT Routine [facility] [place]BBOTT [place] [address] Reshma Arthur, DO 102 [place] [address] 11/25/2024 11:30 AM EDT Routine [facility] F[facility]ilia OBGYBrittany [address] [facility] [place] [place] [address] Susan Patterson PA 102 [place], [facility]11 [phone] (work) documented as of this encounter Procedures Procedure Name Priority Date/Time Associated Diagnosis Comments US OB 14+ WEEKS ANATOMY SCAN 08/27/2024 4:53 PM EDT documented in this encounter Results * US OB 14+ weeks anatomy scan (08/27/2024 4:53 PM EDT) Anatomical Region Laterality Modality Body Ultrasound 08/27/2024 4:53 PM EDT Narrative 08/27/2024 4:53 PM EDT THIS EXAM WAS PERFORMED AT [facility] NAME: FANI DINH : 2000 SEX: F Accession Number: [id number] ORDERING PHYSICIAN: YOSVANY CUNNINGHAM REFERRING PHYSICIAN: RESHMA ARTHUR Coding ----- --------- Procedures 61354: Ultrasound, uterus, real time with image documentation, and maternal evaluation plus detailed anatomic examination, transabdominal approach;single or first gestation 27712: Transvaginal Ultrasound (OB) 15232: Doppler velocimetry, ; middle cerebral artery Indication ----- --------- Screening for Anatomic Survey, Screening for cervical length, Abnormal finding on screening of mother- Anti D + (Rhogam), History of prior with delivery, History of prior with IUGR, History of prior with pre-eclampsia, history of c-sections X 3, history of PROM History ----- --------- OB History 4. Para 3 [id number] Current ----- --------- Cell free DNA low [...] EFW (oz) 13 oz EFW by: Hadlock ([id number]) Extended Tibia 30.3 mm 21w 1d 41% Haley Feather Stitcher 5.6 mm CM 6.3 mm 78% Nicolaides [...] Face Maxilla. Heart / Thorax 4-chamber view. 3-sstmxv-mmamhuo view. Interventricular septum. Great vessels. Diaphragm. Spine: [...] PI 1.45 23% [place] 0.73 38% [facility] PS 32.20 cm/s PS 1.18 MoM [...] - 08/27/2024 THIS EXAM WAS PERFORMED AT [facility] NAME: FANI DINH : 2000 SEX: F Accession Number: [id number] ORDERING PHYSICIAN: YOSVANY CUNNINGHAM REFERRING PHYSICIAN: RESHMA ARTHUR Coding ----- --------- Procedures 05895: Ultrasound, uterus, real time with imagedocumentation, and maternal evaluation plus detailed anatomic examination, transabdominalapproach;single or first gestation 58793: Transvaginal Ultrasound (OB) 70262: Doppler velocimetry, ; middle cerebral artery Indication ----- --------- Screening for Anatomic Survey, Screening for cervical length, Abnormalfinding on screening of mother- Anti D + (Rhogam), History of prior with delivery, History ofprior with IUGR, History of prior with pre-eclampsia, history of c-sections X 3, history of PROM History ----- --------- OB History 4. Para 3 [id number] Current ----- --------- Cell free DNA low [...] EFW (oz) 13 oz EFW by: Hadlock ([id number]) Extended Tibia 30.3 mm 21w 1d 41% Haley Feather Stitcher 5.6 mm CM 6.3 mm 78% Nicolaides [...] Face Maxilla. Heart / Thorax 4-chamber view. 3-dddxsu-yxsubvi view. Interventricularseptum. Great vessels. Diaphragm. Spine: Cervical [...] PI 1.45 23% [place] RI 0.73 38% [facility] PS 32.20 cm/s PS 1.18 MoM [...] byprimary OB provider unless otherwise specified by [facility]. Results forwarded to ordering provider so they can follow up with thepatient as necessary. The copy-to physician of this order is RESHMA Gongora The ordering physician of this order is YOSVANY Harmon us Reshma Arthur DO IMG OB US PROCEDURES Final Resul t documented in this encounter Visit Diagnoses Not on filedocumented in this encounter Care Teams Binding Nicker Relationship Specialty Start Date End Date Jewell Monzon MD [address] [place] [address] [place] [address] PCP - General Family Medicine 08/08/23 documented as of this encounter
--- OUTSIDE RECORDS SUMMARY | 2024-11-07 13:33 | XMS_ITS | Encounter Summary ---
Author Organization [facility] Address [address] [facility] [place] [address] Care Team Providers Care Towboat Captain Name Role Phone Jewell Monzon MD Primary Care Provider [phone] Encounter Details Date Type Department Care Team (Late st Contact Info) Description 10/02/2024 Abstract [facility] ABBOTT [address] [place] [address] [place] [address] Andrey Arthur, DO [address] [place] [place], [place] [phone] Social History Tobacco Use Types Packs/Day Years [...] 10:30 AM EDT Routine [facility] ABBOTT [address] [place], [place] [address] [address] Andrey Arthur, DO [address] [place] [address] 11/25/2024 11:30 AM EDT Routine [facility]ilia OBGYBrittany [facility] [place] [address] Susan Patterson PA [address] [place] [place], [place] [phone] documented as of this encounter Visit Diagnoses Not on filedocumented in this encounter Care Teams Towboat Captain Relationship Specialty Start Date End Date Jewell Monzon MD [address] [place] [address] [place] [address] PCP - General Family Medicine 08/08/23 documented as of this encounter
--- OUTSIDE RECORDS SUMMARY | 2024-11-07 13:33 | XMS_ITS | Encounter Summary ---
Author Organization [facility] Address [address] [facility] [place] [address] Care Team Providers Care Production Posting Clerk Name Role Phone Jewell Monzon MD Primary Care Provider [phone] Encounter Details Date Type Department Care Team (Late st Contact Info) Description 10/30/2024 Bamboo flowsheet [facility] ABBOTT [address] [facility] [place] [address] Michelle Segura, PONCHO [address] [facility] [place] [address] Social History Tobacco Use Types Packs/Day [...] AM EDT Routine [facility] ABBOTT [address] [facility] [place] [address] Andrey Arthur DO [address] [facility] [place] [address] 11/25/2024 11:30 AM EDT Routine [facility] Familia CANTUGYBrittany [address] [facility] [place] [address] Susan Patterson PA [address] [facility] [place] [address] documented as of this encounter Visit Diagnoses Not on filedocumented in this encounter Care Teams Production Posting Clerk Relationship Specialty Start Date End Date Jewell Monzon MD [address] [place] [address] [place] [address] PCP - General Family Medicine 08/08/23 documented as of this encounter
--- OUTSIDE RECORDS SUMMARY | 2024-11-07 13:33 | XMS_ITS | Encounter Summary ---
Author Organization [facility] Address [address] [facility] [place] [address] Care Team Providers Care Corn Detasseler Machine Operator Name Role Phone Jewell Monzon MD Primary Care Provider [phone] Encounter Details Date Type Department Care Team (Late st Contact Info) Description 08/28/2024 Abstract NOMJose Manuel ABBOTT [address] [place] [address] [place] [address] Dee Dee Jiménez [...] 10:30 AM EDT Routine NOMJose Manuel ABBOTT [address] [place] [address] [place] [address] Andrey Arthur DO [address] [facility] [address] [place], [place] [phone] 11/25/2024 11:30 AM EDT Routine NOMJose Manuel ABBOTT [address] [place] [address] [place] [address] Susan Patterson PA [address] [facility] [address] [place], [place] [address] documented as of this encounter Visit Diagnoses Not on filedocumented in this encounter Care Teams Corn Detasseler Machine Operator Relationship Specialty Start Date End Date Jewell Monzon MD [address] [place] [address] Dr [place] [phone] PCP - General Family Medicine 08/08/23 documented as of this encounter
--- OUTSIDE RECORDS SUMMARY | 2024-11-07 13:33 | XMS_ITS | Encounter Summary ---
Author Organization [facility] [employer] [facility] tem Address [id number] [address] [place] [address] Care Team Providers Care Typing Section Chief Name Role Phone No Pcp, No Pcp Primary Care Provider Unavailabl e Encounter Details Date Type Department Care Team (Late Contact Info) Description 10/22/2024 Orders Only Maternal- Medicine at [facility] [address] [facility] [place] [address] Maryan King RN Isoimmunization from [...] Care Team (Late st Contact Info) Description 11/10/2024 1:00 PM EDT Appointment [facility] - [facility] US Imaging [address] [place] [address] 11/10/2024 2:00 PM EDT Office Visit Maternal- Medicine at [facility] [address] [place] [address] Cristiano Williamson MD [address], [address] [place] [address] documented as of this encounter Procedures Procedure Name Priority Date/Time Associated Diagnosis Comments TYPE AND SCREEN Routine 10/20/2024 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, single or unspecified fetus 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, single or unspecified fetus documented in this encounter Results * Type and screen(includes indirect rey) (10/20/2024) ABORh A negative BLOOD BAN K - RACHELKY Antibody Screen positive BLOOD BANK - BIANKA Blood Venous blood / Unknown 10/20/2024 Cristiano Williamson MD BLOOD BANK TEST ORDERABLES Final Result BLOOD BANK - [place] documented in this encounter Visit Diagnoses Diagnosis 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, single or unspecified fetus 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
--- OUTSIDE RECORDS SUMMARY | 2024-11-07 13:33 | XMS_ITS | Encounter Summary ---
Author Organization [facility] tem Address [id number] [address] [place] [address] Care Team Providers Care Assistant Property Manager Name Role Phone No Pcp, No Pcp Primary Care Provider Unavailabl e Encounter Details Date Type Department Care Team ([facility] st Contact Info) Description 10/29/2024 Telephone Maternal- Medicine at [facility] [address] [place] [address] Maryan King RN Social History [...] Info) Description 11/10/2024 1:00 PM EDT Appointment [facility] - [facility] US Imaging [address] [place] [address] 11/10/2024 2:00 PM EDT Office Visit Maternal- Medicine at [facility] [address] [place] [address] Cristiano Williamson MD [address], [address] [place] [address] documented as of this encounter Visit Diagnoses Not on filedocumented in this encounter Care Teams Assistant Property Manager Relationship Specialty Start Date End Date No Pcp, [place] [address] PCP - General Family Medicine 08/17/22 documented as of this encounter
--- OUTSIDE RECORDS SUMMARY | 2024-11-07 13:33 | XMS_ITS | Encounter Summary ---
Author Organization [facility] Address [address] [facility] [place] [address] Care Team Providers Care Motor Vehicle Technician Name Role Phone Jewell Monzon MD Primary Care Provider [phone] Encounter Details Date Type Department Care Team (Late st Contact Info) Description 08/28/2024 Abstract NOMJose Manuel ABBOTT [address] [place] [address] [place] [address] Dee Dee Jiménez [place] Social History [...] AM EDT Routine NOMJose Manuel ABBOTT [address] [place] [address] [place] [address] Andrey Arthur DO [address] [facility] [address] [place], [place] [phone] 11/25/2024 11:30 AM EDT Routine NOMJose Manuel ABBOTT [address] [place] [address] [place] [address] Susan Patterson PA [address] [facility] [address] [place], [place] [address] documented as of this encounter Visit Diagnoses Not on filedocumented in this encounter Care Teams Motor Vehicle Technician Relationship Specialty Start Date End Date Jewell Monzon MD [address] [place] [address] Dr [place] [phone] PCP - General Family Medicine 08/08/23 documented as of this encounter
--- OUTSIDE RECORDS SUMMARY | 2024-11-07 13:33 | XMS_ITS | Encounter Summary ---
Author Organization [facility] [employer] [facility] tem Address [id number] [address] [place] [address] Care Team Providers Care Record Center Coordinator Name Role Phone No Pcp, No Pcp Primary Care Provider Unavailabl e Encounter Details Date Type Department Care Team (Late Contact Info) Description 08/13/2024 Orders Only Maternal- Medicine at [facility] [address] [place] [address] Ref Prov, [place] [address] Social History Tobacco Use Types Packs/Day Years [...] Department Care Team (Late Contact Info) Description 11/10/2024 1:[address] [facility] US Imaging [address] [place] [address] 11/10/2024 2:00 PM EDT Office Visit Maternal- Medicine at [facility] [address] [facility] [place] [address] Cristiano Williamson MD [address] [facility], [address] [place] [address] documented as of this encounter Procedures Procedure Name Priority Date/Time Associated Diagnosis Comments US PREG LMTD 1 OR MORE FETUS Routine 08/13/2024 1:53 PM EDT UNLISTED LAB TEST Routine 08/13/2024 1:47 PM EDT documented in this encounter Results * Ultrasound limited 1 or more fetus (08/13/2024 1:53 PM EDT) Anatomical Region Laterality Modality OB-SALES AND SERVICE AGENT Ultrasound us Not In System Ref Prov IMG US ORDERABLES Final R esult * Unlisted Lab Test (08/13/2024 1:47 PM EDT) us Not In System Ref Prov LAB BLOOD ORDERABLES Gladis l Result MANUALLY TRANSCRIBED RESULTS documented in this encounter Visit Diagnoses Not on filedocumented in this encounter Care Teams Record Center Coordinator Relationship Specialty Start Date End Date No Pcp, [place] [address] PCP - General Family Medicine 08/17/22 documented as of this encounter
--- OUTSIDE RECORDS SUMMARY | 2024-11-07 13:33 | XMS_ITS | Encounter Summary ---
Author Organization [employer] tem Address [id number] [address] [place] [address] Care Team Providers Care Boarding Room Fixer Name Role Phone No Pcp, No Pcp Primary Care Provider Unavailabl e Encounter Details Date Type Department Care Team (Late Contact Info) Description 06/08/2021 Telephone [facility] [address] [phone] Lashon Little RN Social History Tobacco Use [...] Info) Description 11/10/2024 1:00 PM EDT Appointment [facility] Imaging [address] [place] [phone] 11/10/2024 2:00 PM EDT Office Visit Maternal- Medicine at [facility] [address] [place] [address] Cristiano Williamson MD [address], [address] [place] [address] documented as of this encounter Visit Diagnoses Not on filedocumented in this encounter Care Teams Boarding Room Fixer Relationship Specialty Start Date End Date No Pcp, [place] [address] PCP - General Family Medicine 08/17/22 documented as of this encounter
--- OUTSIDE RECORDS SUMMARY | 2024-11-07 13:33 | XMS_ITS | Encounter Summary ---
Author Organization [facility] Address [address] [place] [facility] [place] [address] Care Team Providers Care Log Yard Derrick Operator Name Role Phone Jewell Monzon MD Primary Care Provider [phone] Encounter Details Date Type Department Care Team (Late st Contact Info) Description 10/03/2024 Abstract [facility] Familia ABBOTT [address] [place] [address] [place] [phone] Andrey Arthur, DO [address] [place], [place] [phone] Social History Tobacco Use Types Packs/Day Years [...] 11/11/2024 10:30 AM EDT Routine NOMS Familia CANTUGYBrittany [address] [place], [place] [address] [address] Andrey Arthur, DO [address] [place] [address] 11/25/2024 11:30 AM EDT Routine NOMS Familia OBGYN [facility] [place] [address] Susan Patterson PA [address] [place], [place] [address] documented as of this encounter Visit Diagnoses Not on filedocumented in this encounter Care Teams Log Yard Derrick Operator Relationship Specialty Start Date End Date Jewell Monzon MD [address] [place] [address] [place] [address] PCP - General Family Medicine 08/08/23 documented as of this encounter
--- OUTSIDE RECORDS SUMMARY | 2024-11-07 13:33 | XMS_ITS | Encounter Summary ---
Author Organization [facility] Address [address] [facility] [place] [address] Care Team Providers Care Credit Control Administrator Name Role Phone Jewell Monzon MD Primary Care Provider [phone] Encounter Details Date Type Department Care Team (Late st Contact Info) Description 07/03/2024 Abstract NOMJose Manuel ABBOTT [address] [place] [address] [place] [phone] Andrey Arthur, DO [address] [place], [place] [phone] Social History Tobacco Use Types Packs/Day Years [...] 10:30 AM EDT Routine [facility]S Familia ABBOTT [address] [place], [place] [address] [address] Andrey Arthur, DO [address] [place] [address] 11/25/2024 11:30 AM EDT Routine NOMS Familia OBGYBrittany [facility] [place] [address] Susan Patterson PA [address] [place], [place] [address] documented as of this encounter Visit Diagnoses Not on filedocumented in this encounter Care Teams Credit Control Administrator Relationship Specialty Start Date End Date Jewell Monzon MD [address] [place] [address] [place] [address] PCP - General Family Medicine 08/08/23 documented as of this encounter
--- OUTSIDE RECORDS SUMMARY | 2024-11-07 13:33 | XMS_ITS | Encounter Summary ---
Author Organization [facility] Address [address] [facility] [place] [address] Care Team Providers Care Junior Account Executive Name Role Phone Jewell Monzon MD Primary Care Provider [phone] Encounter Details Date Type Department Care Team (Late st Contact Info) Description 11/04/2024 Clinisync Result Encounter NOMS External Department Unsolicited Chiquita Segura, PONCHO [address] [facility] [address] [place], [place] [...] AM EDT Routine NOMS Familia ABBOTT [address] [place] [address] Andrey Arthur DO [address] [facility] [place] [address] 11/25/2024 11:30 AM EDT Routine NOMS Familia OBGYBrittany [address] [place] [address] Susan Patterson PA [address] [facility] [place] [address] documented as of this encounter Procedures Procedure Name Priority Date/Time Associated Diagnosis Comments US OB BPP W NON-STRESS 11/04/2024 12:11 PM EDT documented in this encounter Results * US OB BPP W NON-STRESS (11/04/2024 12:11 PM EDT) Anatomical Region Laterality Modality Other 11/04/2024 12:1 1 PM EDT Narrative 11/04/2024 12:14 [place] [address] Ultrasound Report Signed Patient: JOHN CARBALLO MR#: [id number] : 2000 Acct:[id number] Age/Sex: 24 / F ADM Date: 11/04/24 Loc: US Attending Dr: Chiquita Segura Ordering Physician: Chiquita Segura Date of Service: 11/04/24 Procedure(s): US OB BPP w non-stress Accession Number(s): [id number] cc: Jewell Monzon RN; Chiquita Segura [place] [address] Patient Name: JOHN CARBALLO MRN: [id number] date: 2000 Sex: F Assigned Patient Location: [facility] Current Patient Location: Accession/Order Number: [id number] Exam Date: 11/04/2024 12:10 Report Date: 11/04/2024 12:11 At the request of: CHIQUITA SEGURA Procedure: US OB BPP w non-stress Ultrasound biophysical profile HISTORY: Anti-D antibody is present Adequate breathing movement, gross body movement, tone and amniotic fluid volume for total score of 8 out of 8. The amniotic fluid index is 9.6cm within normal limits. The heart rate 153 bpm. US/US OB BPP w non-stress IMPRESSION: Adequate ultrasound biophysical profile Impression dictated by: Jamie Granados M.D. 11/04/2024 12:11 PM Dictation Location: [employer] Electronically authenticated by: [id number] Y Date: 11/04/2024 12:11 Dictated By: Jamie Granados D.O. Signed By: 11/04/24 1214 DD/ 10 TD/TT: [employer] Operator: Procedure Note Radiology, Radiologist, - 11/04/2024 [place] [address] Ultrasound Report Signed Patient: JOHN CARBALLO MMR#: [id number] : 2000Acct:[id number] Age/Sex: 24 / FADM Date: 11/04/24 Loc: US Attending Dr: Chiquita Segura Ordering Physician: Chiquita Segura Date of Service: 11/04/24 Procedure(s): US OB BPP w non-stress Accession Number(s): [id number] cc: Jewell Monzon RN; Chiquita Segura [place] [address] Patient Name: JOHN CARBALLO MRN: [id number] date: 2000 Sex: F Assigned Patient Location: [facility] Current Patient Location: Accession/Order Number: [id number] Exam Date: 11/04/2024 12:10 Report Date: 11/04/2024 12:11 At the request of: CHIQUITA SEGURA Procedure: US OB BPP w non-stress Ultrasound biophysical profile HISTORY: Anti-D antibody is present Adequate breathing movement, gross body movement, tone and amniotic fluid volume for total score of 8 out of 8. The amniotic fluidindex is 9.6cm within normal limits. The heart rate 153 bpm. US/US OB BPP w non-stress IMPRESSION: Adequate ultrasound biophysical profile Impression dictated by: Jamie Granados M.D. 11/04/2024 12:11 PM Dictation Location: [facility] Electron[facility] authenticated by: [id number] Y Date: 2:11 Dictated By: Jamie Granados D.O. Signed By:11/04/24 1214 DD/ 1211 TD/TT: [employer] Operator: us Chiquita Segura [facility] Final Resul t documented in this encounter Visit Diagnoses Not on filedocumented in this encounter Care Teams Junior Account Executive Relationship Specialty Start Date End Date Jewell Monzon MD [address] [place] [address] Dr [place] [phone] PCP - General Family Medicine 08/08/23 documented as of this encounter
--- OUTSIDE RECORDS SUMMARY | 2024-11-07 13:33 | XMS_ITS | Encounter Summary ---
Author Organization [facility] tem Address [id number] [address] [place] [address] Care Team Providers Care Human Service Worker Name Role Phone No Pcp, No Pcp Primary Care Provider Unavailabl e Encounter Details Date Type Department Care Team ([facility] st Contact Info) Description 08/28/2024 Orders Only Maternal- Medicine at [facility] [address] [place] [phone] Cristiano Williamson MD [address] [facility], [address] [place] [id number] 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, single [...] Info) Description 11/10/2024 1:00 PM EDT Appointment [facility] [address] [place] [phone] 11/10/2024 2:00 PM EDT Office Visit Maternal- Medicine at [facility] [address] [place] [phone] Cristiano Williamson MD [address], [address] [place] [phone] documented as of this encounter Visit Diagnoses Diagnosis 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, single or unspecified fetus- Primary documented in this encounter Care Teams Human Service Worker Relationship Specialty Start Date End Date No Pcp, [place] [address] PCP - General Family Medicine 08/17/22 documented as of this encounter
--- OUTSIDE RECORDS SUMMARY | 2024-11-07 13:33 | XMS_ITS | Encounter Summary ---
Author Organization [facility] Address [address] [facility] [place] [address] Care Team Providers Care Yarn Sizer Name Role Phone Jewell Monzon MD Primary Care Provider Encounter Details Date Type Department Care Team (Late st Contact Info) Description 06/17/2024 Abstract [facility] [address] [place] [address] [place] [phone] Andrey Arthur, DO [address] [place], [place] [id number] Social History Tobacco Use Types Packs/Day Years [...] AM EDT Routine [facility] [address] [place], [place] [address] [phone] Andrey Arthur, DO [address] [place], [place] [id number] 11/25/2024 11:30 AM EDT Routine [facility] [place] [phone] Susan Patterson PA [address] [place], [place] [phone] documented as of this encounter Visit Diagnoses Not on filedocumented in this encounter Care Teams Yarn Sizer Relationship Specialty Start Date End Date Jewell Monzon MD [address] [place] [address] [place] [address] PCP - General Family Medicine 08/08/23 documented as of this encounter
--- OUTSIDE RECORDS SUMMARY | 2024-11-07 13:33 | XMS_ITS | Clinical Summary ---
Author Organization [facility] Healthcare Address [address] [place] [address] Care Team Providers Care Director [facility] Name Role Phone Jewell Monzon MD Primary Care Provider [phone] Allergies Active Allergy Reactions Criticality Noted Date [...] oxide (Mag-Ox) 400 MG tabletIndications:T hird trimester ([facility]) Take 1 tablet (400 mg) by mouth Daily 30 tablet 2 10/31/19 25 025 Active iron polysaccharides (ProFe) 391.3 (180 Fe) MG capsuleIndications: 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[facility]),Rh negative state in antepartum period, unspecified trimester ([facility]),Other iron deficiency anemia Take 1 capsule (391.3 mg) by mouth Daily 30 capsule 3 10/31/19 25 025 Active terconazole (Terazol 7) 0.4 % vaginal creamIndications:Ye ast infection Insert 1 applicator into the vagina at bedtime for 7 days 45 g 08/ 025 Active terconazole (Terazol 7) 0.4 % vaginal creamIndications:Ye ast infection Insert 1 applicator into the vagina at bedtime for 7 days 45 g 10/02/19 025 Active Problems Problem Noted Date Diagnosed Date Smoker 10/17/2022 Vaginal infection 10/17/2022 Vaginal discharge 10/17/2022 Genital herpes 10/10/2022 Estimated Date of Delivery Comme nts Yes 01/04/2025 Based on Ultraso und Encounters Date Type Department Care Team Description 11/04/2024 Clinisync Result Encounter [facility] External Department Unsolicited Michelle Segura NP 10/30/2024 1:00 PM EDT Routine [facility] [address] [place] [address] Michelle Segura, PONCHO Third trimester ([facility]); 30 weeks gestation of ([facility]); 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[facility]); Rh negative state in antepartum period, unspecified trimester ([facility]); Other iron deficiency anemia 10/30/2024 Telephone [facility] [address] [place] [address] Sandra Beltrán LPN 10/30/2024 Bamboo flowsheet [facility] [address] [place] [address] Michelle Segura NP 10/24/2024 Abstract [facility] [address] [place] [address] Dee Dee Jiménez MA 10/17/2024 Abstract [facility] [address] [place] [address] Reshma Arthur DO 10/08/2024 Telephone [facility] [address] [place] [address] Jyoti Gilliam MA 10/08/2024 Telephone [facility] [address] [place] [address] Jyoti Gilliam MA 10/03/2024 Abstract [facility] [address] [place] [address] Reshma Arthur, 10/02/2024 11:00 AM EDT Routine [facility] [address] [place] [address] Susan Patterson PA 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[facility]); 26 weeks gestation of ([facility]); Second trimester ([facility]); Herpes simplex 10/02/2024 Clinisync Result Encounter [facility] External Department Unsolicited Reshma Arthur, DO 10/02/2024 Abstract [facility] [address] [place] [address] Reshma Arthur, DO 10/02/2024 Abstract [facility] [address] [place] [address] Reshma Arthur, DO 10/01/2024 Refill [facility] [address] [place] [address] Sandra Beltrán LPN Yeast infection 09/22/2024 Abstract [facility] [address] [place] [address] Dee Dee Jiménez MA 09/15/2024 11:20 AM EDT Routine [facility] [address] [place] [address] Rehsma Arthur, DO Second trimester ([facility]); 24 weeks gestation of ([facility]); Diabetes mellitus screening; Herpes simplex; Rh negative state in antepartum period, unspecified trimester ([facility]) 09/15/2024 Bamboo flowsheet [facility] [address] [place] [address] Reshma Arthur, 09/02/2024 10:30 AM EDT Routine [facility] [address] [place] [address] Susan Patterson PA Second trimester ([facility]); 22 weeks gestation of ([facility]) 09/02/2024 Bamboo flowsheet [facility] [address] [place] [address] Susan Patterson PA 08/28/2024 Abstract [facility] [address] [place] [address] [phone] Dee Dee Jiménez MA 08/28/2024 Abstract [facility] [address] [place] [address] Dee Dee Jiménez ME 08/27/2024 External Result Encounter [facility] [address] [place] [address] Reshma Arthur, DO 08/18/2024 Telephone [facility] [address] [place] [address] [place] [address] Reshma Arthur, 08/13/2024 Telephone [facility] [address] [place] [address] [phone] Jyoti Gilliam MA 08/12/2024 External Result Encounter NOMS External Department Unsolicited Hever Wallace, DO 08/12/2024 External Result Encounter NOMS External Department Unsolicited ViscHever renee, DO 08/12/2024 External Result Encounter [facility]OMS External Department Unsolicited Hever Wallace, DO 08/07/2024 Telephone [facility] [address] [place] [phone] Sandra Beltrán LPN Error (VOID this visit) from Last 3 Months Family History Medical [...] AM EDT Routine [facility] [address] [place] [address] Reshma Arthur DO [address] [place], [place] [phone] 11/25/2024 11:30 AM EDT Routine [facility] [address] [place] [address] Susan Patterson PA [address] [place], [place] [phone] Health Maintenance Due Date Last Done Comments Influenza Vaccine (#1) 2024 Procedures Procedure Name Priority Date/Time Associated Diagnosis Comments US OB BPP W NON-STRESS 11/04/2024 12:11 PM EDT [facility] ANTIBODY ID Routine 10/02/2024 1:20 PM [...] Routine 08/07/2024 4:35 PM EDT Missed menses from Last 3 Months Results * US OB BPP W NON-STRESS (11/04/2024 12:11 PM EDT) Anatomical Region Laterality Modality Other 11/04/2024 12:1 1 PM EDT Narrative 11/04/2024 12:14 PM EDT [facility] [place] [id number] Ultrasound Report Signed Patient: JOHN MOHR MR#: [id number] : 2000 Acct:[id number] Age/Sex: 24 / F ADM Date: 11/04/24 Loc: Attending Dr: Michelle Segura Ordering Physician: Michelle Segura Date of Service: 11/04/24 Procedure(s): US OB BPP w non-stress Accession Number(s): [id number] cc: Jewell Monzon RN; Michelle Segura [facility] [place] [id number] Patient Name: JOHN MOHR MRN: [id number] date: 2000 Sex: F Assigned Patient Location: [facility] Current Patient Location: Accession/Order Number: [id number] Exam Date: 11/04/2024 12:10 Report Date: 11/04/2024 12:11 At the request of: MICHELLE SEGURA Procedure: US OB BPP w non-stress [...] Granados M.D. 11/04/2024 12:11 PM Dictation Location: [place] [address] Electronically authenticated by: [id number] Y Date: 11/04/2024 12:11 Dictated By: Jamie Granados D.O. Signed By: 11/04/24 1214 DD/ 1211 TD/TT: Cupola Hoist Operator: Procedure Note Radiology, Radiologist, - 11/04/2024 [facility] [place] [id number] Ultrasound Report Signed Patient: JOHN MOHR MMR#: [id number] : 2000Acct:[id number] Age/Sex: 24 / FADM Date: 11/04/24 Loc: US Attending Dr: Michelle Segura Ordering Physician: Michelle Segura Date of Service: 11/04/24 Procedure(s): US OB BPP w non-stress Accession Number(s): [id number] cc: Jewell Monzon RN; Michelle Segura [place] [address] Patient Name: JOHN MOHR MRN: [id number] date: 2000 Sex: F Assigned Patient Location: [facility] Current Patient Location: Accession/Order Number: [id number] Exam Date: 11/04/2024 12:10 Report Date: 11/04/2024 12:11 At the request of: MICHELLE SEGURA Procedure: US OB BPP w non-stress [...] Granados M.D. 11/04/2024 12:11 PM Dictation Location: [place] [address] Electronically authenticated by: [id number] Y Date: 2:11 Dictated By: Jamie Granados D.O. Signed By:11/04/24 1214 DD/ 1211 TD/TT: Cupola Hoist Operator: Michelle Segura MICA SPLITTER [facility] Final Resul t * GLUCOSE 1 HOUR (10/02/2024 1:20 PM EDT) GLUCOSE 1 HOUR 115 <130 mg/dL [facility] 10/02/2024 1:20 PM EDT 10/02/2024 1:23 PM EDT Narrative [facility] - 10/02/2024 2:13 PM EDT us Reshma Sandhya DO LAB BLOOD ORDERABLES Final Resul t Performing Organization Address City/[facility]/ZIP Co de Phone Number [facility] * [facility] ANTIBODY ID (10/02/2024 1:20 PM EDT) Pathologist [facility] TB ANTIBODY ID PANEL D [facility] Comment: TITER=4 ANTIBODY ID AND TITER PERFORMED BY [facility]. 10/02/2024 1:20 PM EDT 10/02/2024 1:23 PM EDT [facility] - 10/05/2024 8:09 PM EDT [facility] , us Reshma Sandhya DO CLINIS[facility] Final Result Performing Organization Address [facility]/ZIP Co de Phone Number [facility] * ALL TYPE AND SCREEN (10/02/2024 1:20 PM EDT) Pathologist [facility] BLOOD TYPE A Negative [facility] ANTIBODY SCREEN POSITIVE [facility] 10/02/2024 1:20 PM EDT 10/02/2024 1:23 PM EDT [facility] - 10/05/2024 8:09 PM EDT [facility] , us Reshma Sandhya DO CL[facility] Final Result Performing Organization Address City/[facility]/ZIP Co de Phone Number [facility] * ALL MISCELLANEOUS TEST (10/02/2024 1:20 PM EDT) MISCELLANEOUS TEST COMMENT . [facility] Comment: Test Ordered: [id number] Antibody Identification Antibody Id. #1 Anti-D CB Reference Range: . Chin Titer #1 4 CB Reference Range: . If a numerical titer result has been reported, please note that this result is the reciprocal value of titer results formerly reported as 1:2,1:4, 1:8, etc. These results are now reported as 2, 4, 8, etc. The [employer] has recommended this change in titer reporting formats to simply reflect the reciprocal value of the titer. Antibody Id. #2 MICA SPLITTER NOLAB Reference Range: . Chin Titer #2 MICA SPLITTER NOLAB Reference Range: . Performed at: [address] [id number] Railcar Foreman: Buddy Varela PhD, Phone: [phone] 10/02/2024 1:20 PM EDT 10/02/2024 1:23 PM EDT Narrative [facility] - 10/03/2024 2:08 PM EDT [id number] Antibody Identification us Reshma Sandhya DO [facility] Final Result [facility] * (ABNORMAL) ALL CBC WITH AUTO DIFF (10/02/2024 1:20 PM EDT) [facility] WBC 12.2(H) 4.0 - 11.0 10 3/uL [...] - 10/02/2024 1:38 PM EDT us Reshma Arthur DO [facility] Final Result [facility] * (ABNORMAL) POCT urinalysis dipstick manually resulted (10/02/2024 11:37 AM EDT) Only the most recent of3 resultswithin the time period is included. Color, UA Yellow Clarity, UA Clear Glucose, UA Negative Negative - 2000(110) ++++ mg/dL Bilirubin, UA Negative Negative - 4(70) +++ mg/dL Ketones, UA Negative Negative - 160(16) ++++ mg/dL Spec Grav, UA 1.020 1 - 1.03 Blood, UA Negative Negative - 50 Julius/mcL pH, UA 6.0 5 - 9 Protein, UA Trace Negative - 2000(20) ++++ mg/dL Urobilinogen, UA 1.0 0.2 - 12 mg/dL Leukocytes, UA Negative Negative - 500+++ Yeimi/mcL Nitrite, UA Negative Negative - Positive Urine 10/02/2024 11:3 7 AM EDT Susan DAMON POINT OF CARE TEST ENTER/EDIT OR DERABLES Final Result * US OB 14+ weeks anatomy scan (08/27/2024 4:53 PM EDT) Anatomical Region Laterality Modality Body Ultrasound 08/27/2024 4:53 PM EDT Narrative 08/27/2024 4:53 PM EDT THIS EXAM WAS PERFORMED AT [facility] NAME: FANI DINH : 2000 SEX: F Accession Number: [id number] ORDERING PHYSICIAN: YOSVANY CUNNINGHAM REFERRING PHYSICIAN: RESHMA ARTHUR Coding ----- --------- Procedures [id number]: Ultrasound, uterus, real time with image documentation, and maternal evaluation plus detailed anatomic examination, transabdominal approach;single or first gestation 89945: Transvaginal Ultrasound (OB) 50922: Doppler velocimetry, ; middle cerebral artery Indication ----- --------- Screening for Anatomic Survey, Screening for cervical length, Abnormal finding on screening of mother- Anti D + (Rhogam), History of prior with delivery, History of prior with IUGR, History of prior with pre-eclampsia, history of c-sections X 3, history of PROM History ----- --------- OB History 4. Para 3 [id number] Current ----- --------- Cell free DNA low [...] EFW (oz) 13 oz EFW by: Hadlock ([id number]) Extended Tibia 30.3 mm 21w 1d 41% Haley Vp [employer]ging [employer] 5.6 mm CM 6.3 mm 78% Nicolaides [...] Face Maxilla. Heart / Thorax 4-chamber view. 1-yqxucw-rnnizfm view. Interventricular septum. Great vessels. Diaphragm. Spine: [...] PI 1.45 23% Ebbing RI 0.73 38% Rob PS 32.20 cm/s PS 1.18 MoM ED [...] of anemia. Recommendations ----- --------- Please see [facility] documentation from today. The patient is scheduled in four to six week(s) to complete anatomic survey with MCA dopplers, and office visit. Weekly MCA dopplers. Subsequent follow up or other follow up as clinically determined by primary OB provider unless otherwise specified by [facility]. Results forwarded to ordering provider so they can follow up with the patient as necessary. The copy-to physician of this order is RESHMA Gongora The ordering physician of this order is YOSVANY Harmon Procedure Note Radiology, Radiologist, MD - 08/27/2024 THIS EXAM WAS PERFORMED AT [facility] NAME: FANI DINH : 2000 SEX: F Accession Number: [id number] ORDERING PHYSICIAN: YOSVANY CUNNINGHAM REFERRING PHYSICIAN: RESHMA ARTHUR Coding ----- --------- Procedures [id number]: Ultrasound, uterus, real time with imagedocumentation, and maternal evaluation plus detailed anatomic examination, transabdominalapproach;single or first gestation 76768: Transvaginal Ultrasound (OB) 88265: Doppler velocimetry, ; middle cerebral artery Indication ----- --------- Screening for Anatomic Survey, Screening for cervical length, Abnormalfinding on screening of mother- Anti D + (Rhogam), History of prior with delivery, History ofprior with IUGR, History of prior with pre-eclampsia, history of c-sections X 3, history of PROM History ----- --------- OB History 4. Para 3 [id number] Current ----- --------- Cell free DNA low [...] EFW (oz) 13 oz EFW by: Hadlock ([id number]) Extended Tibia 30.3 mm 21w 1d 41% Haley Vp Emerging Media 5.6 mm CM 6.3 mm 78% Nicolaides [...] Face Maxilla. Heart / Thorax 4-chamber view. 4-scroum-rfytvxe view. Interventricularseptum. Great vessels. Diaphragm. Spine: Cervical [...] PI 1.45 23% Ebbing RI 0.73 38% Rob PS 32.20 cm/s PS 1.18 MoM ED [...] of anemia. Recommendations ----- --------- Please see [facility] documentation from today. The patient is scheduled in four to six week(s) to complete anatomicsurvey with MCA dopplers, and office visit. Weekly MCA dopplers. Subsequent follow up or other follow up as clinically determined byprimary OB provider unless otherwise specified by [facility]. Results forwarded to ordering provider so they can follow up with thepatient as necessary. The copy-to physician of this order is RESHMA Gongora The ordering physician of this order is YOSVANY Harmon us Reshma Arthur DO IMG OB US PROCEDURES Final Resul t * (ABNORMAL) AEROBIC ASHLEY CHARGE ([id number]) (08/12/2024 7:11 PM EDT) AMIKACIN <16(S) 08/15/2024 10:29 AM EDT [facility] AMOXACILLIN/K CLAVULANATE <8/4(S) 08/15/2024 10:29 AM EDT [facility] AMPICILLIN >16(R) 08/15/2024 10:29 AM EDT [facility] AMPICILLIN/SULBACT AM >16/8(R) 08/15/2024 10:29 AM EDT [facility] AZTREONAM <4(S) 08/15/2024 10:29 AM EDT [facility] CEFAZOLIN 4(S) 08/15/2024 10:29 AM EDT [facility] CEFEPIME <2(S) 08/15/2024 10:29 AM EDT [facility] CEFTAZIDIME <1(S) 08/15/2024 10:29 AM EDT [facility] CEFTAZIDIME/AVIBAC HANKINS 8(S) 08/15/2024 10:29 AM EDT [facility] CEFTOLOZANE/TAZOBA CTAM <2(S) 08/15/2024 10:29 AM EDT [facility] CEFTRIAXONE <1(S) 08/15/2024 10:29 AM EDT [facility] CEFUROXIME <4(S) 08/15/2024 10:29 AM EDT [facility] CIPROFLOXACIN 0.5(I) 08/15/2024 10:29 AM EDT [facility] ERTAPENEM <0.5(S) 08/15/2024 10:29 AM EDT [facility] GENTAMICIN <2(S) 08/15/2024 10:29 AM EDT [facility] LEVOFLOXACIN <0.5(S) 08/15/2024 10:29 AM EDT [facility] MEROPENEM <1(S) 08/15/2024 10:29 AM EDT [facility] MEROPENEM/VABORBAC HANKINS <2(S) 08/15/2024 10:29 AM EDT [facility] NITROFURANTOIN <32(S) 08/15/2024 10:29 AM EDT [facility] PIPERACILLIN/TAZOB ACTAM <8(S) 08/15/2024 10:29 AM EDT [facility] TETRACYCLINE <4(S) 08/15/2024 10:29 AM EDT [facility] TIGECYCLINE <2(S) 08/15/2024 10:29 AM EDT [facility] TOBRAMYCIN <2(S) 08/15/2024 10:29 AM EDT [facility] TRIMETHOPRIM/SULFA METHOXAZOLE >2/38(R) 08/15/2024 10:29 AM EDT [facility] Urine Urine specimen obtained by clean catch procedure / Unknown 08/12/2024 7:11 PM EDT 08/12/2024 7:17 PM EDT Comment:Clean-Voided Midstre am us Hever Wallace DO [facility] Final Result [facility] [address] [place] [address], [facility] [address] [place] [address] * OB URINE DRUG SCREEN (NO THC) (08/12/2024 7:11 PM EDT) [facility] Signature AMPHETAMINE SCREEN,URINE Negative Negative 08/12/2024 7:47 PM EDT [facility] BARBITURATE SCREEN,URINE Negative Negative 08/12/2024 7:47 PM EDT [facility] BENZODIAZEPINES SCREEN,URINE Negative Negative 08/12/2024 7:47 PM EDT [facility] COCAINE SCREEN,URINE Negative Negative 08/12/2024 7:47 PM EDT [facility] OPIATE SCREEN,URINE Negative Negative 08/12 7:47 PM EDT [facility] PHENCYCLIDINE SCREEN, URINE Negative Negative 08/12/2024 7:47 PM EDT [facility] Comment: These are unconfirmed results and should not be used for legal purposes. Drug Cut-Off Concentration: AMPH 1000 ng/mL ANNE 200 ng/mL SHEY 200 ng/mL COCM 300 ng/mL OP 300 ng/mL PCP 25 ng/mL Other 08/12/2024 7:11 PM EDT 08/12/2024 7:17 PM EDT Narrative [facility] - 08/12/2024 7:47 PM EDT Comment s/s of acute impairment us Hever Wallace DO LAB BLOOD ORDERABLES Final Re sult Performing Organization Address City/[facility] Co de Phone Number [facility] [address] [place] [address], [facility] [address] [place] [id number] * (ABNORMAL) Urinalysis with reflex microscopic (08/12/2024 7:11 PM EDT) COLOR,URINE Light-Yellow Yellow 08/12/2024 7:25 PM [facility] APPEARANCE,URI NE Cloudy(AA) Clear 08/12/2024 7:25 PM [facility] SPECIFICY GRAVITY,URINE 1.019 1.001 - 1.030 08/12/2024 7:25 PM [facility] PH,URINE 5.5 5.0 - 9.0 08/12/2024 7:25 PM [facility] LEUKOCYTE ESTERASE,URINE 3+(H) Negative [facility] Negative Negative 08/12/2024 7:25 PM EDT [facility] PROTEIN,URINE Trace(H) Negative 08/12/2024 7:25 PM EDT [facility] GLUCOSE,URINE (UA) Normal Normal 08/12/2024 7:25 PM EDT [facility] KETONES,URINE Negative Negative 08/12/2024 7:25 PM EDT [facility] UROBILINOGEN,U RINE Normal Normal 08/12/2024 7:25 PM EDT [facility] BILIRUBIN,URIN E Negative Negative 08/12/2024 7:25 PM EDT [facility] OCCULT BLOOD,URINE Negative Negative 08/12/2024 7:25 PM EDT [facility] RBC,URINE 1-2 0 - 4 [HPF] 08/12/2024 7:30 PM EDT [facility] WBC,URINE 20-49(H) 0 - 4 [HPF] 08/12/2024 7:30 PM EDT [facility] WBC CLUMP, URINE Occasional(H ) None Seen 08/12/2024 7:30 PM EDT [facility] SQUAMOUS EPITHELIAL CELL,URINE 5-9(H) 0 - 2 [HPF] 08/12/2024 7:30 PM EDT [facility] BACTERIA,URINE 3+(H) None Seen [facility]20[facility] HYALINE CASTS,URINE None 0 - 8 08/12/2024 7:30 PM EDT [facility] MUCUS,URINE Rare 08/12/2024 7:30 PM T [facility] Other 08/12/2024 7:11 PM EDT 08/12/2024 7:17 PM EDT Narrative [facility] - 08/12/2024 7:30 PM EDT Comment c/o urinary symptoms or increased blood pressure Name Collection Type:: Clean-Voided Midstream us Hever Wallace DO LAB URINE ORDERABLES Final Re sult [facility] [address] [place] [address], [facility] [address] [place] [address] * Urine culture (08/12/2024 7:11 PM EDT) Only the most recent of2 resultswithin the time period is included. Pathologist [facility] ORGANISM Escherichia coli 08/15/2024 10:29 AM EDT [facility] COLONY COUNT 20,000 08/15/2024 10:29 AM EDT [facility] Urine Urine specimen obtained by clean catch procedure / Unknown 08/12/2024 7:11 PM EDT 08/12/2024 7:17 PM EDT Comment:Clean-Voided Midstre am Hever Wallace DO LAB MICROBIOLOGY - GENERAL OR DERABLES Final Result [facility] [address] [place] [address], [facility] [address] [place] [address] from Last 3 Months Insurance [employer] Care Teams Director [facility] Relationship Specialty Start Date End Date Jewell Monzon MD [address] [place] [address] [place] [address] PCP - General Family Medicine 08/08/23
--- OUTSIDE RECORDS SUMMARY | 2024-11-07 13:33 | XMS_ITS | Encounter Summary ---
Author Organization [facility] Address [address] [place] [address] Care Team Providers Care Legal Practice Manager Name Role Phone Jewell Monzon MD Primary Care Provider [phone] Encounter Details Date Type Department Care Team (Late st Contact Info) Description 10/24/2024 Abstract [facility]OM[facility] ABBOTT [address] [place] [address] [place] [address] Dee Dee Jiménez [...] 10:30 AM EDT Routine [facility]OM[facility] Manuel ABBOTT [address] [place] [address] [place] [address] Andrey Arthur DO [address] [facility] [address] [place], [place] [phone] 11/25/2024 11:30 AM EDT Routine NOMJose Manuel ABBOTT [address] [place] [address] [place] [address] Susan Patterson PA [address] [facility] [address] [place], [place] [phone] documented as of this encounter Visit Diagnoses Not on filedocumented in this encounter Care Teams Legal Practice Manager Relationship Specialty Start Date End Date Jewell Monzon MD [address] [place] [address] [place] [id number] PCP - General Family Medicine 08/08/23 documented as of this encounter
--- OUTSIDE RECORDS SUMMARY | 2024-11-07 13:33 | XMS_ITS | Encounter Summary ---
Author Organization [facility] Address [address] [facility] [place] [address] Care Team Providers Care Kettle Fry Cook Operator Name Role Phone Jewell Monzon MD Primary Care Provider [phone] Encounter Details Date Type Department Care Team (Late st Contact Info) Description 10/17/2024 Abstract [facility] A[facility]OTT [address] [place] [address] [place] [phone] Andrey Arthur, DO [address] [place], [place] [id number] Social History Tobacco Use Types Packs/Day Years [...] 10:30 AM EDT Routine [facility] A[facility] [address] [place], [place] [address] [address] Andrey Arthur, DO [address] [place] [address] 11/25/2024 11:30 AM EDT Routine [facility] [place] [address] Susan Patterson PA [address] [place], [place] [phone] documented as of this encounter Visit Diagnoses Not on filedocumented in this encounter Care Teams Kettle Fry Cook Operator Relationship Specialty Start Date End Date Jewell Monzon MD [address] [place] [address] [place] [address] PCP - General Family Medicine 08/08/23 documented as of this encounter
--- OUTSIDE RECORDS SUMMARY | 2024-11-07 13:33 | XMS_ITS | Encounter Summary ---
Author Organization [employer] tem Address [facility]-[id number] [address] [place] [address] Care Team Providers Care Marine Rigger Name Role Phone No Pcp, No Pcp Primary Care Provider Unavailabl e Encounter Details Date Type Department Care Team (Late st Contact Info) Description 05/03/2021 Telephone [facility] - Women's Services [address] [place] [phone] Katy Lemus MD [address] [facility] [place] [address] Social History Tobacco Use Types Packs/Day Years [...] Info) Description 11/10/2024 1:00 PM EDT Appointment [facility] US Imaging [address] [place] [address] 11/10/2024 2:00 PM EDT Office Visit Maternal- Medicine at [facility] [address] [place] [address] Cristiano Williamson MD [address] [facility] [place], [address] [place] [address] documented as of this encounter Visit Diagnoses Not on filedocumented in this encounter Care Teams Marine Rigger Relationship Specialty Start Date End Date No Pcp, [place] [address] PCP - General Family Medicine 08/17/22 documented as of this encounter
--- OUTSIDE RECORDS SUMMARY | 2024-11-07 13:33 | XMS_ITS | Encounter Summary ---
Author Organization [facility] Address [address] [facility] [place] [address] Care Team Providers Care Director Of Spa And Guest Experience Name Role Phone Jewell Monzon MD Primary Care Provider [phone] Encounter Details Date Type Department Care Team (Late st Contact Info) Description 10/02/2024 Abstract [facility] A[facility] [address] [place] [address] [place] [phone] Andrey Arthur, DO [address] [place], [place] [address] Social History Tobacco Use Types Packs/Day Years [...] 10:30 AM EDT Routine [facility] ABBOTT [address] [place], [place] [address] [address] Andrey Arthur, DO [address] [place] [address] 11/25/2024 11:30 AM EDT Routine [facility] [place] [address] Susan Patterson PA [address] [place], [place] [address] documented as of this encounter Visit Diagnoses Not on filedocumented in this encounter Care Teams Director Of Spa And Guest Experience Relationship Specialty Start Date End Date Jewell Monzon MD [address] [place] [address] [place] [address] PCP - General Family Medicine 08/08/23 documented as of this encounter
--- OUTSIDE RECORDS SUMMARY | 2024-11-07 13:33 | XMS_ITS | Encounter Summary ---
Author Organization [facility] Address [address] [facility] [address] Care Team Providers Care Fly Finisher Name Role Phone Jewell Monzon MD Primary Care Provider [phone] Encounter Details Date Type Department Care Team (Late st Contact Info) Description 09/22/2024 Abstract NOMJose Manuel ABBOTT [address] [facility] [place] [address] Dee Dee Jiménez [...] 10:30 AM EDT Routine NOMJose Manuel ABBOTT [address] [place] [address] [place] [address] Andrey Arthur DO [address] [facility] [address] [place], [place] [address] 11/25/2024 11:30 AM EDT Routine NOMJose Manuel ABBOTT [address] [place] [address] [place] [address] Susan Patterson PA [address] [facility] [address] [place], [place] [phone] documented as of this encounter Visit Diagnoses Not on filedocumented in this encounter Care Teams Fly Finisher Relationship Specialty Start Date End Date Jewell Monzon MD [address] [place] [address] [place] [id number] PCP - General Family Medicine 08/08/23 documented as of this encounter
--- OUTSIDE RECORDS SUMMARY | 2024-11-07 13:33 | XMS_ITS | Encounter Summary ---
Author Organization [facility] [employer] [facility] tem Address [id number] [address] [place] [address] Care Team Providers Care Vocational Guidance Counselor Name Role Phone No Pcp, No Pcp Primary Care Provider Unavailabl e Encounter Details Date Type Department Care Team ([facility] st Contact Info) Description 09/12/2024 Orders Only Maternal- Medicine at [facility] [address] [facility] [place] [address] Mary Mckoy RN 21 weeks [...] Description 11/10/2024 1:[address] [facility] US Imaging [address] [place] [phone] 11/10/2024 2:00 PM EDT Office Visit Maternal- Medicine at 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
--- OUTSIDE RECORDS SUMMARY | 2024-11-07 13:33 | XMS_ITS | Encounter Summary ---
Author Organization [facility] Address [address] [facility] [place] [address] Care Team Providers Care Bottle Packing Machine Cleaner Name Role Phone Jewell Monzon MD Primary Care Provider [phone] Encounter Details Date Type Department Care Team (Late st Contact Info) Description 04/29/2024 Abstract NOMJose Manuel ABBOTT [address] [facility] [phone] Andrey Arthur, DO [address] [place], [facility] Social History Tobacco Use Types Packs/Day [...] 11/11/2024 10:30 AM EDT Routine JERONIMO ABBOTT [address] [place], [place] [address] [address] Andrey Arthur, DO [address] [place], [place] [address] 11/25/2024 11:30 AM EDT Routine JERONIMO ABBOTT [address] [place] [place] [address] Susan Patterson PA [address] [place], [place] [address] documented as of this encounter Visit Diagnoses Not on filedocumented in this encounter Care Teams Bottle Packing Machine Cleaner Relationship Specialty Start Date End Date Jewell Monzon MD [address] [place] [address] [place] [address] PCP - General Family Medicine 08/08/23 documented as of this encounter
--- OUTSIDE RECORDS SUMMARY | 2024-11-07 13:33 | XMS_ITS | Encounter Summary ---
Author Organization [facility] tem Address [facility]-[id number] [address] [place] [address] Care Team Providers Care Reject Opener Name Role Phone No Pcp, No Pcp Primary Care Provider Unavailabl e Encounter Details Date Type Department Care Team (Late Contact Info) Description 10/29/2024 Orders Only Maternal- Medicine at [facility] [address] [facility] [place] [address] Maryan King RN Isoimmunization from [...] Info) Description 11/10/2024 1:00 PM EDT Appointment [facility] US Imaging [address] [place] [address] 11/10/2024 2:00 PM EDT Office Visit Maternal- Medicine at [facility] [address] [place] [address] Cristiano Williamson MD [address], [address] [place] [address] documented as of this encounter Procedures Procedure [...] fetus documented in this encounter Care Teams Reject Opener Relationship Specialty Start Date End Date No Pcp, [place] [address] PCP - General Family Medicine 08/17/22 documented as of this encounter
--- OUTSIDE RECORDS SUMMARY | 2024-11-07 13:33 | XMS_ITS | Encounter Summary ---
Author Organization [facility] Address [address] [facility] [place] [address] Care Team Providers Care Orderlies Teacher Name Role Phone Jewell Monzon MD Primary Care Provider [phone] Encounter Details Date Type Department Care Team (Late st Contact Info) Description 08/06/2024 Results Follow-Up [facility] ABBOTT [address] [place] [address] Sandra Beltrán LPN [address] [email or web address] [address] RECURRENT VAGINITIS (HTRX) Social History [...] AM EDT Routine [facility] ABBOTT [address] [place] [address] Andrey Arthur DO [address] [facility] [place] [address] 11/25/2024 11:30 AM EDT Routine [facility] ABBOTT [address] [facility] [place] [address] Susan Patterson PA [address] [facility] [address] [place], [place] [address] documented as of this encounter Visit Diagnoses Not on filedocumented in this encounter Care Teams Orderlies Teacher Relationship Specialty Start Date End Date Jewell Monzon MD [address] [place] [address] [place] [address] PCP - General Family Medicine 08/08/23 documented as of this encounter
--- OUTSIDE RECORDS SUMMARY | 2024-11-07 13:33 | XMS_ITS | Encounter Summary ---
Author Organization [facility] Address [address] [facility] [place] [address] Care Team Providers Care Warranty Coordinator Name Role Phone Jewell Monzon MD Primary Care Provider [phone] Encounter Details Date Type Department Care Team (Late st Contact Info) Description 07/30/2024 Abstract [facility] ABBOTT [address] [place] [address] [place] [phone] Andrey Arthur, DO [address] [place], [place] [phone] Social History Tobacco Use Types Packs/Day Years [...] 10:30 AM EDT Routine [facility] ABBOTT [address] [place], [place] [address] [address] Andrey Arthur, DO [address] [place] [address] 11/25/2024 11:30 AM EDT Routine [facility] [place] [address] Susan Patterson PA [address] [place], [place] [address] documented as of this encounter Visit Diagnoses Not on filedocumented in this encounter Care Teams Warranty Coordinator Relationship Specialty Start Date End Date Jewell Monzon MD [address] [place] [address] [place] [address] PCP - General Family Medicine 08/08/23 documented as of this encounter
--- OUTSIDE RECORDS SUMMARY | 2024-11-07 13:33 | XMS_ITS | Encounter Summary ---
Author Organization [facility] Address [address] [facility] [place] [address] Care Team Providers Care Certified Residential Medication Aide Name Role Phone Jewell Monzon MD Primary Care Provider [phone] Encounter Details Date Type Department Care Team (Late st Contact Info) Description 10/30/2024 Telephone [facility]ittany [address] [place] [address] Sandra Beltrán LPN [address] [place] [address] Social History Tobacco Use Types [...] nurse for maternal medicine here in the [place] office. Today is . I just wanted to let you know. And Dr. Arthur know that patient John Carballo, date of 2000 did not show up for her Doppler her ultrasound. Here in the [place] office today, I dosee a note from yesterday's phone call that they left a message that she was to continue to the Doppler, so not know not sure where she is at, but she did not show for her Doppler day, october 30 in a [facility] office, thank you. joan Maradiaga. documented in this encounter Plan of Treatment Upcoming Encounters Date Type Department Care Team (Late st Contact Info) Description 11/11/2024 10:30 AM EDT Routine [facility] ABBOTT [address] [facility] [address] Andrey Arthur DO 102 [facility] [address] [place], [facility]11 11/25/2024 11:30 AM EDT Routine [facility] Familia ABBOTT [address] [facility] [place] [place] [address] Susan Patterson PA [address] [facility] [address] [place], [facility]11 documented as of this encounter Visit Diagnoses Diagnosis Yeast infection documented in this encounter Care Teams Certified Residential Medication Aide Relationship Specialty Start Date End Date Jewell Monzon MD [address] [place] [address] [place] [address] PCP - General Family Medicine 08/08/23 documented as of this encounter
--- OUTSIDE RECORDS SUMMARY | 2024-11-07 13:33 | XMS_ITS | Encounter Summary ---
Author Organization [facility] Address [address] [facility] [place] [address] Care Team Providers Care Aviation Warfare Systems Operator Name Role Phone Jewell Monzon MD Primary Care Provider Adnrey Arthur DO Unavailable Encounter Details Date Type Department Care Team (Late st Contact Info) Description 10/18/2022 Abstract JERONIMO ABBOTT [address] [place] [address] Susan Patterson PA [address] [place] [address] [place], [facility]11 Social History Tobacco Use Types Packs/Day Years [...] 11/11/2024 10:30 AM EDT Routine JERONIMO ABBOTT [address] [place] [address] [place] [address] Andrey Arthur DO [address] [facility] [address] [place], [facility]11 11/25/2024 11:30 AM EDT Routine JERONIMO ABBOTT [address] [place] [address] [place] [address] Susan Patterson PA [address] [place] [address] Dr [place], [facility]11 documented as of this encounter Visit Diagnoses Not on filedocumented in this encounter Care Teams Aviation Warfare Systems Operator Relationship Specialty Start Date End Date Jewell Monzon MD [address] [place] [address] [place] [address] PCP - General Family Medicine 08/08/23 Andrey Arthur DO [address] [place] [address] Dr [address] [place] [address] PCP - [facility] 09/17/23 documented as of this encounter
--- OUTSIDE RECORDS SUMMARY | 2024-11-07 13:33 | XMS_ITS | Encounter Summary ---
Author Organization [employer] tem Address [facility][id number] [address] [place] [address] Care Team Providers Care Snowmobile Mechanic Name Role Phone No Pcp, No Pcp Primary Care Provider Unavailabl e Encounter Details Date Type Department Care Team (Late st Contact Info) Description 10/30/2024 Telephone Maternal Medicine [place] [address] [facility] [address] [place] [address] Viola Jones, JESSICA Social History Tobacco Use [...] for her MCA dopplers today in the [place] office. Called and left a message on Dr. Arthur's nurse line regarding the no show today. documented in this encounter Plan of Treatment Upcoming Encounters Date Type Department Care Team (Late st Contact Info) Description 11/10/2024 1:00 PM EDT Appointment [facility] US Imaging [address] [place] [address] 11/10/2024 2:00 PM EDT Office Visit Maternal- Medicine at [facility] [address] [place] [address] Cristiano Williamson MD [address] [facility] [place], [address] [place] [address] documented as of this encounter Visit Diagnoses Not on filedocumented in this encounter Care Teams Snowmobile Mechanic Relationship Specialty Start Date End Date No Pcp, [place] [address] PCP - General Family Medicine 08/17/22 documented as of this encounter
--- OUTSIDE RECORDS SUMMARY | 2024-11-07 13:33 | XMS_ITS | Encounter Summary ---
Author Organization [facility] tem Address [facility]-[id number] [address] [place] [address] Care Team Providers Care Legal Billing Specialist Name Role Phone No Pcp, No Pcp Primary Care Provider Unavailabl e Encounter Details Date Type Department Care Team ([facility] Contact Info) Description 10/07/2024 Results Follow-Up Maternal- Medicine at [facility] [address] [place] [phone] Cristiano Williamson MD [address] [facility], [address] [place] [address] Antibody ID Social History Tobacco Use Types [...] Info) Description 11/10/2024 1:00 PM EDT Appointment [facility] US Imaging [address] [place] [address] 11/10/2024 2:00 PM EDT Office Visit Maternal- Medicine at [facility] [address] [place] [address] Cristiano Williamson MD [address] [facility] [place], [address] [place] [address] documented as of this encounter Visit Diagnoses Not on filedocumented in this encounter Care Teams Legal Billing Specialist Relationship Specialty Start Date End Date No Pcp, [place] [address] PCP - General Family Medicine 08/17/22 documented as of this encounter
--- OUTSIDE RECORDS SUMMARY | 2024-11-07 13:33 | XMS_ITS | Encounter Summary ---
Author Organization [facility] Address [address] [facility] [place] [address] Care Team Providers Care City Superintendent Name Role Phone Jewell Monzon MD Primary Care Provider [phone] Reason for Visit * Reason Comments Med Refill Encounter Details Date Type Department Care Team (Late st Contact Info) Description 03/19/2024 Refill [facility] Familia OBROSIO [address] [place] [phone] Andrey Arthur, DO [address] [facility] [address] [place], [facility] Yeast infection Social History Tobacco Use Types [...] 10:30 AM EDT Routine NOMS Familia OBGYBrittany [address] [place], [place] [address] [address] Andrey Arthur, DO [address] [place], [place] [address] 11/25/2024 11:30 AM EDT Routine [facility]S Familia OBGYBrittany 102 [facility] [place] [address] Susan Patterson PA [address] [place], [facility] documented as of this encounter Visit Diagnoses Diagnosis Yeast infection documented in this encounter Care Teams City Superintendent Relationship Specialty Start Date End Date Jewell Monzon MD [address] [place] [address] [place] [address] PCP - General Family Medicine 08/08/23 documented as of this encounter
--- OUTSIDE RECORDS SUMMARY | 2024-11-07 13:34 | XMS_ITS | Clinical Summary ---
Author Organization [employer] tem Address [id number] [address] [place] [address] Care Team Providers Care Highway Worker Name Role Phone No Pcp, No Pcp Primary Care Provider Unavailabl e Allergies Active Allergy Reactions Criticality Noted Date Comments Aripiprazole 01/20/2020 Meloxicam 01/20/2020 Hydrocodone-Acetaminophen 01/20/2020 Medications vit,calc76/iron/ folic (PNV 29-1 ORAL) Take 1 tablet by [...] Active albuterol (PROVENTIL HFA;VENTOLIN HFA) 90 mcg/actuation inhalerIndicatio ns:Pneumonia of right lower lobe due to infectious organism Inhale 2 puffs every 4 (four) hours as needed for wheezing or shortness of breath. 18 g 1 2 Active Additional Information Patient not taking.Reported on 08/27/2024 aspirin 81 mg Take one 1 tablet once a day until delivery and then stop 30 tablet 6 5 Active ferrous sulfate 325 (65 FE) MG tabletIndication s:Iron deficiency anemia, unspecified iron deficiency anemia type Take 1 tablet (325 mg total) by mouth daily with breakfast. 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, single or unspecified fetus 10/29/2024 Telephone Maternal- Medicine at [facility] [address] [place] [address] Maryan King RN 10/23/2024 Travel 10/22/2024 Orders Only Maternal- Medicine at [facility] [address] [place] [address] Maryan King RN 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, single or unspecified fetus; 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, single or unspecified fetus 10/16/2024 Travel 10/14/2024 Telephone Maternal- Medicine at [facility] [address] [facility] [place] [address] Maryan King, JESSICA 10/09/2024 Telephone [facility] [address] [place] [address] Erick Bradley CMA 10/08/2024 Telephone Maternal- Medicine at [facility] [address] [place] [address] Maryan King RN 10/07/2024 Results Follow-Up Maternal- Medicine at [facility] [address] [place] [address] Cristiano Williamson MD Antibody ID 10/07/2024 Telephone Maternal- Medicine at [facility] [address] [place] [address] Maryan King RN 10/07/2024 Orders Only Maternal- Medicine at [facility] [address] [place] [address] Cristiano Williamson MD Iron deficiency anemia, unspecified iron deficiency anemia type (Primary Dx) 10/07/2024 Orders Only Maternal- Medicine at [facility] [address] [place] [address] Maryan King RN 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, single or unspecified fetus; 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, single or unspecified fetus 10/07/2024 Travel 10/07/2024 Orders Only Maternal- Medicine at [facility] [address] [place] [address] Maryan King RN 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, single or unspecified fetus (Primary Dx); 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, single or unspecified fetus 10/07/2024 Orders Only [facility] - Labor [address] [place] [address] Cristiano Williamson MD 10/07/2024 Telephone Maternal- Medicine at [facility] [address] [place] [address] Maryan King, JESSICA 10/02/2024 Travel 10/01/2024 Telephone Maternal- Medicine at [facility] [address] [place] [address] Mirian Magallanes, JESSICA 10/01/2024 Telephone Maternal- Medicine at [facility] [address] [place] [address] Mirian Magallanes, JESSICA 09/18/2024 Travel 09/12/2024 3:30 PM EDT - 09/12/2024 11:59 PM EDT Hospital Encounter [facility] - [facility] US Imaging [address] [place] [address] Cristiano Williamson MD 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, single or unspecified fetus; History of intrauterine growth restriction in prior , currently ; with history of section, antepartum Discharge Disposition: Home 09/12/2024 Travel 09/12/2024 Orders Only Maternal- Medicine at [facility] [address] [place] [address] Mary Mckoy RN 21 weeks gestation of ; 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, single or unspecified fetus; History of intrauterine growth restriction in prior , currently ; History of oligohydramnios 09/11/2024 Telephone Maternal- Medicine at [facility] [address] [place] [address] Cristiano Williamson MD 09/11/2024 Travel 09/05/2024 11:00 AM EDT - 09/05/2024 11:59 PM EDT Hospital Encounter [facility] - [facility] US Imaging [address] [place] [address] Cristiano Williamson MD 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, single or unspecified fetus; History of intrauterine growth restriction in prior , currently ; with history of section, antepartum Discharge Disposition: Home 09/05/2024 Travel 08/28/2024 Orders Only Maternal- Medicine at [facility] [address] [place] [address] Nydia Baig, RN 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, single or unspecified fetus (Primary Dx); History of intrauterine growth restriction in prior , currently ; with history of section, antepartum 08/28/2024 Orders Only Maternal- Medicine at [facility] [address] [place] [address] Cristiano Williamson MD 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, single or unspecified fetus (Primary Dx) 08/27/2024 11:00 AM EDT Office Visit Maternal- Medicine at [facility] [address] [place] [address] Cristiano Williamson MD 21 weeks gestation of (Primary Dx); 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, single or unspecified fetus; History of intrauterine growth restriction in prior , currently ; History of oligohydramnios; with history of section, antepartum; History of gestational hypertension; Low lying placenta, antepartum 08/27/2024 9:34 AM EDT - 08/27/2024 11:59 PM EDT Hospital Encounter [facility] - [facility] US Imaging [address] [place] [address] Encounter for anatomic survey Discharge Disposition: Home 08/27/2024 Orders Only Maternal- Medicine at [facility] [address] [place] [address] Cristiano Williamson MD 08/27/2024 Travel 08/27/2024 Abstract [facility] [address] [facility] [address] [place] [address] Cristiano Williamson MD 08/13/2024 Orders Only Maternal- Medicine at [facility] [address] [place] [address] Ref Prov, Not In System 08/07/2024 Abstract Maternal- Medicine at [facility] [address] [place] [address] Cristiano Williamson MD from Last 3 Months [...] Info) Description 11/10/2024 1:00 PM EDT Appointment [facility] - [facility] US Imaging [address] [place] [address] 11/10/2024 2:00 PM EDT Office Visit Maternal- Medicine at [facility] [address] [place] [address] Cristiano Williamson MD [address] [facility], [address] [place] [address] Health Maintenance Due Date Last Done Comments Depression Screening 2010 Adult BMI Follow Up Plan 2016 Pap Smear 06/16/2019 COVID-19 Vaccine (2023-2 5 season) 2023 08/20/2020 Influenza Vaccine 11/17/2024 Adult BMI Screening 08/27/2025 08/27/2024 Tobacco Screening 08/27/2025 08/27/2024 DTaP,Tdap and Td Vaccines (6 - Td or Tdap) 01/08/2027 01/08/2017, 11/07/2010, 12/16/1999, Additional history exists Medical Devices Not on file Procedures Procedure Name Priority Date/Time Associated Diagnosis Comments US [facility] AMNIOTIC FLUID VOLUME ASSESSMENT Routine 10/23/2024 9:52 [...] in second trimester, single or unspecified fetus [facility] OB FOLLOW-UP, 1 FETUS Routine 09/18/2024 3:46 PM EDT 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, single or unspecified fetus History of intrauterine growth restriction in prior , currently with history of section, antepartum [facility] AMNIOTIC FLUID VOLUME ASSESSMENT Routine 09/12/2024 4:53 PM EDT 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, single or unspecified fetus History of intrauterine growth restriction in prior , currently with history of section, antepartum [facility] LMTD OB, 1 OR MORE FETUS Routine [...] second trimester, single or unspecified fetus US [facility] COMPREHENSIVE ANATOMIC SURVEY Routine 08/27/2024 12:16 PM EDT Encounter for anatomic survey US PREG LMTD 1 OR MORE FETUS Routine 08/13/2024 1:53 PM EDT UNLISTED LAB TEST Routine 08/13/2024 1:4 7 PM EDT from Last 3 Months Results * US MFM AMNIOTIC FLUID VOLUME ASSESSMENT (10/23/2024 9:52 AM EDT) Only the most recent of6 resultswithin the time period is included. Anatomical Region Laterality Modality OB-HEALTH EVALUATOR Ultrasound 10/23/2024 9:35 AM EDT Narrative 10/23/2024 1:11 PM EDT NAME: FANI DINH : 2000 SEX: F Accession Number: [id number] ORDERING PHYSICIAN: SE CUNNINGHAM REFERRING PHYSICIAN: SE CUNN[place]AM Coding ----- --------- Procedures 46940: Limited OB / MADELEINE, 1 or More Fetuses 14984: Doppler velocimetry, ; middle cerebral artery Indication ----- --------- Abnormal finding on screening of mother- Anti D + (Rhogam), History of prior with delivery, History of prior with IUGR, History of prior with pre-eclampsia, history of c-sections X 3, history of PROM, Low lying placenta History ----- --------- OB History 4. Para 3 [id number] Current ----- --------- Cell free DNA low [...] of anemia. Recommendations ----- --------- Please see [facility] recommendations from prior clinical and/or ultrasound report documentation. Subsequent follow up or other follow up as clinically determined by primary OB provider unless otherwise specified by [facility]. Results forwarded to ordering provider so they can follow up with the patient as necessary. Procedure Note Cristiano Williamson MD - 10/23/2024 NAME: FANI DINH : 2000 SEX: F Accession Number: [id number] ORDERING PHYSICIAN: SE CUNNINGHAM REFERRING PHYSICIAN: SE CUNNINGHAM Coding ----- --------- Procedures 26102: Limited OB / MADELEINE, 1 or More Fetuses 26157: Doppler velocimetry, ; middle cerebral artery Indication ----- --------- Abnormal finding on screening of mother- Anti D + (Rhogam),History of prior with delivery, History of prior with IUGR, History of prior withpre-eclampsia, history of c-sections X 3, history of PROM, Low lying placenta History ----- --------- OB History 4. Para 3 [id number] Current ----- --------- Cell free DNA low [...] of anemia. Recommendations ----- --------- Please see [facility] recommendations from prior clinical and/or ultrasoundreport documentation. Subsequent follow up or other follow up as clinically determined byprimary OB provider unless otherwise specified by M. Results forwarded to ordering provider so they can follow up with thepatient as necessary. us Se Cunningham MD [facility] ORDERABLES Final Resul t * Antibody ID (10/20/2024) Only the most recent of3 resultswithin the time period is included. Antibody ID see scanned results BLOOD BANK - [facility] Blood Venous blood / Unknown 10/20/2024 us Cristiano Williamson MD BLOOD BANK TEST ORDERABLES Final Result Performing Organization Address [facility] de Phone Number BLOOD BANK - [facility] * Type and screen(includes indirect rey) (10/20/2024) Only the most recent of3 resultswithin the time period is included. Pathologist [facility] ABORh A negative BLOOD BAN K - [place] Antibody Screen positive BLOOD BANK - [facility] Blood Venous blood / Unknown 10/20/2024 us Cristiano Williamson MD BLOOD BANK TEST ORDERABLES Final Result Performing Organization Address [facility] de Phone Number BLOOD BANK - [facility] * Antibody titer (10/20/2024) Only the most recent of2 resultswithin the time period is included. Pathologist [facility] Antibody Titer see scanned results BLOOD BANK - [facility] Blood Venous blood / Unknown 10/20/2024 us Cristiano Williamson MD BLOOD BANK TEST ORDERABLES Final Result Performing Organization Address [facility] de Phone Number BLOOD BANK - [facility] * CBC auto differential (10/02/2024 4:00 PM EDT) Blood Venous blood / Unknown us Not In System Ref Prov LAB BLOOD ORDERABLES Gladis l Result Performing Organization Address [facility] Co de Phone Number MANUALLY TRANSCRIBED RESULTS * Glucose 1h post 50g load (10/02/2024 3:58 PM EDT) Blood Venous blood / Unknown us Not In System Ref Prov LAB BLOOD ORDERABLES Gladis l Result Performing Organization Address [facility] de Phone Number MANUALLY TRANSCRIBED RESULTS * Antibody Titer (08/27/2024 12:39 PM EDT) Pathologist [facility] Antibody Titer Anti-D Titer : 8 08/27/2024 5:04 PM EDT [facility] Blood Venous blood / Unknown Venipuncture / Unknown 08/27/2024 12:39 PM EDT 08/27/2024 12:39 PM EDT Cristiano Williamson MD BLOOD BANK TEST ORDERABLES Final Result Performing Organization Address City/[facility] Co de Phone Number [facility] [address] [place] [address], [facility] [address] [place] [address], * c Antigen (08/27/2024 12:39 PM EDT) Pathologist [facility] Little c Antigen Positive 09/01/2024 1:32 PM EDT [facility] Blood Venous blood / Unknown Venipuncture / Unknown 08/27/2024 12:39 PM EDT 08/27/2024 12:39 PM EDT Cristiano Williamson MD BLOOD BANK TEST ORDERABLES Final Result Performing Organization Address [facility] Co de Phone Number [facility] [address] [place] [address], [facility] [address] [place] [address], [place] * Clinical Pathology Review (08/27/2024 12:39 PM EDT) Case Report Clinical Pathology Report Case: [id number] Authorizing Provider: Cristiano Williamson MD Collected: 08/27/2024 1239 Ordering Location: [facility] Received: 08/28/2024 1402 - Lab Pathologist: Lesley Hdez MD Specimen: Blood, Venous 09/01/2024 1:52 PM EDT [facility] Blood Bank Observations The patient has [...] an antiglobulin crossmatch. 09/01/2024 1:52 PM EDT [facility] Venous blood / Unknown 08/27/2024 12:39 PM EDT 08/28/2024 2:02 PM EDT us Cristiano Williamson MD PATHOLOGY/CYTOLOGY ORDERAB LES Final Result Performing Organization Address [facility] Co de Phone Number [facility] [address] [place] [address], [place] * Ultrasound limited 1 or more fetus (08/13/2024 1:53 PM EDT) Anatomical Region Laterality Modality OB-HEALTH EVALUATOR Ultrasound us Not In System Ref Prov IMG US ORDERABLES Final R esult * Unlisted Lab Test (08/13/2024 1:47 PM EDT) us Not In System Ref Prov LAB BLOOD ORDERABLES Gladis l Result Performing Organization Address City/[facility] Co de Phone Number MANUALLY TRANSCRIBED RESULTS from Last 3 Months Insurance [employer] Advance Directives * Full Code (Latest Code Status on File) Date Activated Date Inactivated Comments 04/15/2021 5:14 PM 04/25/2021 10:[address] Worker Relationship Specialty Start Date End Date No Pcp, [place] [address] PCP - General Family Medicine 08/17/22
--- OUTSIDE RECORDS SUMMARY | 2024-11-07 13:34 | XMS_ITS | Encounter Summary ---
Author Organization [facility] [employer] [facility] tem Address [id number] [address] [place] [address] Care Team Providers Care Dough Machine Operator Name Role Phone No Pcp, No Pcp Primary Care Provider Unavailabl e Encounter Details Date Type Department Care Team (Late Contact Info) Description 12/31/2020 Orders Only Maternal- Medicine at [facility] [address] [place] [address] Andrey Arthur, DO [address] [place] [address] Social History Tobacco Use Types Packs/Day Years [...] EDT Appointment [facility] US Imaging [address] [place] [address] 11/10/2024 2:00 PM EDT Office Visit Maternal- Medicine at [facility] [address] [place] [address] Cristiano Williamson MD [address], [address] [place] [address] documented as of this encounter Procedures Procedure Name Priority Date/Time Associated Diagnosis Comments US OFFICE Routine 12/28/2020 documented in this encounter Results * Ultrasound office (12/28/2020) Anatomical Region Laterality Modality AMB Ultrasound us Andrey Arthur DO IMG US ORDERABLES Final Result documented in this encounter Visit Diagnoses Not on filedocumented in this encounter Additional Health Concerns Infection Onset Date Last Indicated Resolved Time COVID-19 Rule-Out 04/22/2021 04/22/2021 04/22/2021 2:46 PM EST documented as of this encounter Care Teams Dough Machine Operator Relationship Specialty Start Date End Date No Pcp, [place] [address] PCP - General Family Medicine 08/17/22 documented as of this encounter
--- OUTSIDE RECORDS SUMMARY | 2024-11-07 13:34 | XMS_ITS | Patient Health Record ---
Author Organization [facility] es Address [address] [place] [address] Care Team Providers Care Adjuster Electrical Contacts Name Role Phone cA Batista Primary Care Provider [phone] Allergies Allergen (clinical drug ingredient) Drug/Non Drug Allergy documented on EMR Reaction Allergy Type Onset Date Status aripiprazole Abilify Unknown Drug Allergy Acti ve meloxicam Meloxicam hives Drug Allergy Active Vicodin Unknown Drug Allergy Active Reason For Referral No Information Medications Medication SIG (Take, Route, Fr equency, Duration) Notes Start Date End Date Status Sertraline HCl 50 MG 1 tablet Orally Onc e a day; Duration: 30 day(s) 04/16/2019 Active busPIRone HCl 10 MG 1 tablet Orally Twic e a day; Duration: 30 days 04/16/2019 Active Social History Tobacco Use: Social History Observation Description Date Details (start date - stop date) Current Smoker NA - NA Tobacco Screen: Question Answer Notes Are you a: current smoker How often do you smoke cigarettes? every day How many cigarettes a day do you smoke? 6-10 How soon after you wake up do you smoke your fir st cigarette? 6-30 min Are you interested in quitting? Ready to quit Sexual Hx: Question Answer Notes Had sex in the last 12 months (vaginal, oral, or anal)? Yes with Men only Use protection? No Have you ever had an STD? Yes Chlamydia? Yes GC? No Syphilis? No Herpes? Yes Other? No LMP: 04/08/19 Alcohol Screening: Question Answer Notes Did you have a drink containing alcohol in the p ast year? No Points 0 Interpretation Negative Depression Screening (PHQ-9): Question Answer Notes Little interest or pleasure in doing things Near ly every day Feeling down, depressed, or hopeless Nearly ever y day Trouble falling or staying asleep, or sleeping t oo much Nearly every day Feeling tired or having little energy Nearly adrián ry day Poor appetite or overeating Nearly every day Feeling bad about yourself-o r that you are a failure or have let yourself or your family down Nearly every day Trouble concentrating on thi ngs, such as reading the newspaper or watching television Not at all Moving or speaking so slowly that other people could have noticed. 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 Plan Of Treatment No Information Insurance Providers Payer Name Payer Address Payer Phone Subscriber Number Group Number Insured Name Patient Relationship to Insured Coverage Start Date Coverage End Date [employer] [place] [address] [place] [address] [id number] FABRIZIO MOHR Self - patient is the insured 3 [employer] [address] [place] [address] [id number] FANI FABRIZIO Self - patient is the insured 3 [employer] [address] [place] [address] [id number] FANI FABRIZIO Self - patient is the insured 0 3 [employer] after [employer] E[employer] [address] [place] [address] [id number] MOHRFABRIZIO CARDONA Self - patient is the insured 0 3 Medical (General) History Medical History History ICD Code Colonoscopy 2018 Surgical History Surgery Date(Month/Year) Broken jaw on both sides in 2016 2016 2017 2017
[2024-11-07 13:36] VITALS: BP 136/94; PULSE 91
--- OUTSIDE RECORDS SUMMARY | 2024-11-07 13:38 | XMS_ITS | CCD ---
Author Organization [facility] Care Team Providers Care [employer]ator [employer] Name Role Phone Unavailable Primary Care Provider [...] Admitting Unavailable KARASIK, DR FOX Consulting Unavailable CHENG, DR DEVIN James Consulting Unavailable SANDHYA, DR JUSTICE Consulting Unavailable SANDHYA, DR JUSTICE Attending Unavailable MISC, DR SORENSON Primary Care Unavailable CHENG, DR DEVIN James Consulting Unavailable SANDHYA, DR JUSTICE Admitting Unavailable SANDHYA, DR JUSTICE Consulting Unavailable MISC, DR SORENSON Primary Care Unavailable SANDHYA, DR JUSTICE Admitting Unavailable SANDHYA, DR JUSTICE Attending Unavailable KARASIK, DR FOX Consulting Unavailable KARASILizandro, DR FOX Attending Unavailable KARASILizandro, DR FOX Admitting Unavailable MISC, DR SORENSON Primary Care Unavailable DOMINIC, DEVIN Consulting Unavailable MISC, DR SORENSON Primary Care Unavailable KARSAUL, DR FOX Attending Unavailable KARASILizandro, DR FOX Admitting Unavailable KARSAUL, DR FOX Consulting Unavailable SANDHYA, DR JUSTICE Consulting Unavailable SANDHYA, DR JUSTCIE Attending Unavailable MISC, DR SORENSON Primary Care [...] DR JUSTICE Consulting Unavailable ISATUAMBER Attending Unavailable AMBER LUNSFORD Admitting Unavailable MISC, [...] Care Physician Jewell Monzon Primary Care Physician [phone] Jewell Monzon Primary Care Physician [phone] Jewell Monzon Attending Unavailable Andrea Faustin Attending Unavailable Nicolás, MSN, MICROBIOLOGY PROFESSOR-VEGETABLE PICKER Jewell Alcala Attending U Jamie Mcneil Admitting Unavailable Jamie Steven Attending Unavailable DO Andrea Faustin SGale Attending Unavailable DO Andrea Faustin Attending Unavailable Love, Astrit H Attending Unavailable Earline Bond A Attending Unavailable Nicolás, MSN, MICROBIOLOGY PROFESSOR-[facility] Jewell Alcala Admitting U june Monzon, LEOPOLDO, [facility] Jewell Alcala Attending U Smitha Ruiz Attending Unavailable Nicolás, MSN, MICROBIOLOGY PROFESSOR-[facility] Jewell Alcala Attending U june Monzon, MSN, [facility] Jewell Alcala Attending U Ramona Paulson MD Primary Care Provider NON STAFF Attending Provider Unavailable Sandhya DOFryoy Attending Provider [phone] MUSTAPHA BARNARD Attending Unavailabl e Jewell Monzon Attending Unavailable Jewell Monzon Attending Unavailable Jewell Monzon Attending Unavailable Jewell Monzon Attending Unavailable Kwan Batista Admitting Unavailable Kwan Batista Attending Unavailable Camryn Barros Attending Unavailable MUSTAPHA Subramanian Attending Unavailabl Camryn Lee Attending Unavailable Jewell Monzon MD Primary Care Provider Yesenia CROSS, Susan Riley Attending Provider [phone] Love, Astrit H Attending Unavailable Love, Astrit H Attending Unavailable Varun, Kaylamyn A Attending Unavailable Itzel Elliott Attending Unavailable Itzel Elliott Attending Unavailable DO Earline Bond Attending Unavailable No Pcp, No Pcp Primary Care Provider Unavailabl e NON STAFF Primary Care Provider Unavailabl Saul Santana DO Emergency Provider [phone] Hever Wallace DO Attending Provider SANDHYA, ANDREY R Referring Unavailable NO PCP, NO PCP Primary Care Unavailable DOCHEVA, NIKOLINA P Attending Unavailable DOCHEVA, NIKOLINA P Referring Unavailable NO PCP, NO PCP Primary [...] Andrey Admitting Unavailable Sandhya, Andrey Attending Unavailable Loi Ramona Primary Care Unavailable Susan Patterson Attending Unavailable Loi Ramona Primary Care Unavailable Susan Patterson Admitting Unavailable NON STAFF Primary Care Unavailable Dochenorah, Nikolina P Admitting Unavailable Docjennifer, Nikolina P Attending Unavailable NON STAFF Primary Care Unavailable Saul Mark Admitting Unavailable Saul Mark Attending Unavailable Hever Wallace Attending Unavailable NON STAFF Primary Care Unavailable Hever Wallace Admitting Unavailable NON STAFF Admitting Unavailable NON STAFF Attending Unavailable Loi Ramona Primary Care Unavailable Allergies Allergy Classification Reported Allergen(s) Allergy Type Date of Onset Reaction(s) Facility (20 sources) Acetaminophen / HYDROcodone; Translations: [acetaminophen-hy drocodone] Drug Allergy 01-20-20 20 Eruption of skin (disorder) [facility] (20 sources) ARIPiprazole lauroxil; Translations: [aripiprazole] Drug Allergy Hallucinations (finding) [facility] (20 sources) meloxicam; Translations: [meloxicam] Drug Allergy 01-20-20 20 Constipation (disorder) [facility] (20 sources) ARIPiprazole; Translations: [ARIPIPRAZOLE] Drug Allergy 03-15-20 17 Hallucinations, Rash, Unknown [facility] Work Phone: (20 sources) meloxicam Drug Allergy 04-16-19 Constipation, Rash, Unknown [facility] (1 source) Acetaminophen / HYDROcodone Drug Allergy [facility] (1 source) ARIPiprazole Drug Allergy [facility] (1 source) meloxicam Drug Allergy [facility] (20 sources) Acetaminophen; Translations: [acetaminophen] Drug Allergy 03-15-20 [facility] (20 sources) HYDROcodone; Translations: [hydrocodone] Drug Allergy 03-15-20 [facility] (20 sources) Acetaminophen / HYDROcodone; Translations: [HYDROCODONE-ACET AMINOPHEN] Drug Allergy 04-16-19 Rash, Unknown [facility] Work Phone: (1 source) ARIPiprazole Drug Allergy 03-15-20 [facility] Rep[facility] Medications Current Medications Medication Drug Class(es) Dates Sig (Normalized) Sig (Original) acetaminophen 325 mg / butalbital 50 mg / caffeine 40 mg oral tablet (5 sources) Barbiturate, Central Nervous System Stimulant, Methylxanthine Start: 08-27-2021 take 1 tablet by mouth every four hours for headache APAP/butalbital/ caffeine 325 mg-50 mg-40 mg Tab 1 tab(s), Oral, q4hr for headache, 12 tab(s), Refill(s) 0, [facility]/pharmacy #[id number], 165, cm, 08/27/21 8:35:00 EDT, Height/Length [...] 03/02/2022 03/05/2022 Active Start: 02-04-2022 End: 02-05-2022 Christmas 325 mg-5 mg oral table t 1 tab(s), Oral, q6hr for pain for 1 day(s), 5 tab(s), Refill(s) 0, [facility]/pharmacy #[id number], 165, cm, 02/04/22 10:26:00 EST, Height/Length [...] day(s), # 20 tab(s), Refills(s) 0, Pharmacy: [facility]/pharmacy #[id number], 165, cm, 02/04/22 10:26:00 EST, Height/Length [...] oral solution (1 source) alpha-Adrenergic Agonist, Uncompetitive J-cnwusc-E-aspartate Receptor Antagonist, Sigma-1 Agonist Start: 05-02-2023 take 5 mL by mouth four times daily for cough and congestion Bromfed DM oral syrup 5 mL, Oral, QID for cough and congestion, 200 mL, Refill(s) 0, [facility], 165, cm, 05/02/23 8:22:00 EST, Height/Length [...] day(s), # 14 cap(s), Refills(s) 0, Pharmacy: [facility], 165.1, cm, 10/06/23 19:19:00 EDT, Height/Length [...] day(s), # 60 cap(s), Refills(s) 0, Pharmacy: [facility], 165.1, cm, 10/09/23 9:54:00 EDT, Height/Length [...] completed) magnesium oxide 400 mg oral tablet (3 sources) Start: 10-30-2024 End: 11-29-2024 take 1 tablet by mouth once daily magnesium oxide (Mag-Ox) 400 MG tablet Indications: Third trimester (HHS-HCC) Take 1 tablet (400 mg) by mouth Daily 30 tablet 2 10/30/2024 11/29/2024 Active methylPREDNISolone 4 mg oral tablet (1 source) Corticosteroid Start: 05-02-2023 End: 05-08-2023 Medrol 4 mg Tab = 1 packet(s), Oral, As Directed, as directed on package labeling, X 6 day(s), # 21 tab(s), Refills(s) 0, Pharmacy: [facility], 165, cm, 05/02/23 8:22:00 EST, Height/Length [...] day(s), # 20 tab(s), Refills(s) 0, Pharmacy: [facility], 165.1, cm, 10/09/23 9:54:00 EDT, Height/Length Dosing, 82.1, kg, 10/09/23 9:54:00 EDT, Weight Dosing Start Date: 10/09/23 Stop Date: 10/19/23 Status: Ordered Start: 02-19-2022 take 1 tablet by renita th twice daily as needed for pain naproxen 500 mg oral enteric coated tablet 500 mg = 1 tab(s), Oral, BID, PRN Pain, # 10 tab(s), Refills(s) 0, Pharmacy: [facility]/pharmacy #[id number], 165, cm, 02/19/22 5:46:00 EST, Height/Length [...] days. 14 capsule 06/09/2024 06/16/2024 Active nystatin 928194 unt/ml topical cream (2 sources) Polyene Antifungal Start: 06-04-2024 nystatin Top 100,000 units/g Crm 15 gram 1 adi, Topical, TID, 15 gram, Refill(s) 0, [facility], 165, cm, 06/04/24 18:37:00 EDT, Height/Length [...] day(s), # 12 tab(s), Refills(s) 0, Pharmacy: [facility], 165.1, cm, 05/08/23 23:08:00 EST, Height/Length Dosing, 89, kg, 05/08/23 23:08:00 EST, Weight Dosing Start Date: 05/09/23 Stop Date: 05/12/23 Status: Ordered polysaccharide iron complex 391 mg oral capsule (3 sources) Start: 10-30-2024 End: 11-29-2024 take 1 capsule by mouth once daily iron polysaccharides (ProFe) 391.3 (180 Fe) MG capsule Indications: 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[facility]) , Rh negative state in antepartum period, unspecified trimester ([facility]-H[facility]) , Other iron deficiency anemia Take 1 [...] day(s), # 20 tab(s), Refills(s) 0, Pharmacy: [facility], 165.1, cm, 10/09/23 9:54:00 EDT, Height/Length Dosing, 82.1, kg, 10/09/23 9:54:00 EDT, Weight Dosing Start Date: 10/09/23 Stop Date: 10/17/23 Status: Ordered Cdlbivpb-Gxu-Qa-Fa () 1 mg Tablet (5 sources) Start: 03-27-2020 take 1 tablet by mouth once daily Start: 03-27-2020 take 1 tablet by renita th once daily Givddbmd-Nvl-Cd-Fa () 1 mg Tablet Active 1 TAB PO Daily March 27, 2020 1:00am Start: 03-27-2020 take 1 tablet by renita th once daily Pncuijmd-Ovg-Bi-Fa () 1 mg Tablet Active 1 TAB [...] Active take 1 tablet by mouth once epiafnio y vit,calc76/iron/folic (PNV 29-1 ORAL) Take 1 [...] Daily, # 90 cap(s), Refills(s) 1, Pharmacy: [facility]/pharmacy #[id number], 165, cm, 07/10/22 14:49:00 EDT, Height/Length Dosing, 90.5, kg, 10/16/22 14:17:00 EDT, Weight Dosing Start Date: 10/16/22 Status: Ordered Start: 07-11-2022 take 1 capsule by [facility] once daily propranolol 80 mg Cap-ER 80 mg = 1 cap(s), Oral, Daily, # 90 cap(s), Refills(s) 0, Pharmacy: [facility]/pharmacy #[id number], 165, cm, 07/10/22 14:49:00 EDT, Height/Length Dosing, 92, kg, 07/10/22 14:49:00 EDT, Weight Dosing Start Date: 07/11/22 Status: Ordered sertraline 25 mg oral tablet (4 sources) Serotonin Reuptake Inhibitor Start: 05-15-2023 take 1 tablet by mouth once daily sertraline 25 mg Tab 25 mg = 1 tab(s), Oral, Daily, # 30 tab(s), Refills(s) 0, Pharmacy: [facility], 168, cm, 05/15/23 13:07:00 EST, Height/Length [...] Start: 04-25-2021 take 1 tablet by renita th twice daily valACYclovir (VALTREX) 500 mg tablet [...] hours, # 9 tab(s), Refills(s) 1, Pharmacy: [facility], 165.1, cm, 10/09/23 9:54:00 EDT, Height/Length [...] hours, # 9 tab(s), Refills(s) 1, Pharmacy: [facility]/pharmacy #[id number], 165, cm, 07/10/22 14:49:00 EDT, Height/Length Dosing, 90.5, kg, 10/16/22 14:17:00 EDT, Weight Dosing Start Date: 10/16/22 Status: Ordered Start: 07-11-2022 SUMAtriptan 25 mg Tab 25 mg = 1 tab(s), Oral, Daily, PRN for migraine headache, may repeat dose after 2 hours up to a maximum of 200 mg in 24 hours, # 9 tab(s), Refills(s) 0, Pharmacy: [facility]/pharmacy #[id number], 165, cm, 07/10/22 14:49:00 EDT, Height/Length [...] applicable or unspecified; Translations: [MAT CARE OTH OK FTL GRTH 3RD TM UNS] Onset: 04-12-2021 [...] applicable or unspecified; Translations: [MAT CARE OTH OK FTL GRTH UNS TM UNS] Onset: 03-23-2021 [...] Test Name Value Interpretation Reference Range Facility US OB BPP W NON-STRESS on 11-04-2024 [place] [address] Ultrasound Report Signed Patient: FABRIZIO CARBALLO MR#: [id number] : 2000 Acct:[id number] Age/Sex: 24 / F ADM Date: 11/04/24 Loc: US Attending Dr: Michelle Segura Ordering Physician: Michelle Segura Date of Service: 11/04/24 Procedure(s): US OB BPP w non-stress Accession Number(s): [id number] cc: Jewell Monzon RN; Michelle Segura [place] [address] Patient Name: FABRIZIO CARBALLO MRN: [facility]:[id number] date: 2000 Sex: F Assigned Patient Location: [facility] Current Patient Location: Accession/Order Number: [id number] Exam Date: 11/04/2024 12:10 Report Date: 11/04/2024 [...] Granados M.D. 11/04/2024 12:11 PM Dictation [facility] Electron[facility] authenticated by: [id number] Y Date: 11/04/2024 12:11 Dictated By: Jamie Granados D.O. Signed By: 11/04/24 1214 DD/ 1211 TD/TT: Surgical Asst: [facility] Radiology, Radiologist, - 11/04/[address] [address] Ultrasound Report Signed Patient: FABRIZIO CARBALLO MR#: [id number] : 2000 Acct:[id number] Age/Sex: 24 / F ADM Date: 11/04/24 Loc: US Attending Dr: Michelle Segura Ordering Physician: Michelle Segura Date of Service: 11/04/24 Procedure(s): US OB BPP w non-stress Accession Number(s): [id number] cc: Jewell Monzon RN; Michelle Segura The [place] [id number] Patient Name: FABRIZIO CARBALLO MRN: [id number] date: 2000 Sex: F Assigned Patient Location: [facility] Current Patient Location: Accession/Order Number: [id number] Exam Date: 11/04/2024 12:10 Report Date: 11/04/2024 [...] Granados M.D. 11/04/2024 12:11 PM Dictation [facility] Electron[facility] authenticated by: [id number] Y Date: 11/04/2024 12:11 Dictated By: Jamie Granados D.O. Signed By: 11/04/24 1214 DD/ 121 TD/TT: Surgical Asst: [facility] Radiology Study observation (narrative) [facility] US OB BPP W NON-STRESS Ordered By: Radiologist Radiology on 11-04-2024 [facility] Work Phone: Antibody Titeron 10-21-2024 Antibody Titer ([place]) Sent to [facility] Normal [facility] Comment on above: Result Comment: Sent to [facility] [place] for further testing. Final report to follow. PERFORMED BY: [facility] [place] [address] PATHOLOGIST E LEARNING SPECIALIST MARQUITA LICONA M.D. Blood Bank Pathologist Revie kin 10-21-2024 Blood Bank Pathologist Review Sent to Pathology Normal [facility] ABO/RH Typeon 10-20-2024 ABO and Rh group Nom (Bld) Blood group A Rh(D) negative Normal [facility] Antibody Identificationon Antibody Identification D Normal T he [facility] Antigen Identificationon Antigen Identification Positive Normal Th e [facility] Fabio 10-20-2024 L Specimen: [id number] Received: 10/20/24 Status: MAC [place] Num: [id number] Spec Type: Impression Subm Dr: Genia Correia MD Tissues: PATHBBK Procedures: PATHREVIEW Age/ Patient Sex Location Account Attending Physician Fabrizio Carballo Maximus / MD [id number] Genia Correia MD SPEC NUM: [id number] RECD: 10/20/24 STATUS: MAC BASS NUM: [id number] GONZALES: 10/20/24- DR: Genia Correia MD ENTERED: 10/20/[address]: STEFANY TYPE: Impression DEPT: OK ENTERED BY: [id number] RECV BY: [id number] ORDERED: PATHREVIEW ORDERED: PATHREVIEW Blood Bank Results Date Time Test Result Flag (u) Normal Range 10/20/24 1612 Ab Screen POSITIVE AB ID 10/20/24 161 Anti-D Pathologist Review Anti-D antibody is present as seen with passive immunization by Rh immune globulin (RhoGAM) which was injected on and? 21 days. Specimen: [id number] Received: 10/20/24 Status: MAC Bass Num: [id number] Spec Type: Impression Subm Dr: Genia Correia MD Tissues: PATHBBK Procedures: PATHREVIEW Patient: Fabrizio Carballo [id number] (Continued) Signed (signature on file) Harshad Noe MD 10/21/24 1136 Normal [facility] No Panel Informationon 10-07 Antibody Titer see scanned results P [facility] Antibody ID see scanned results [employer] [facility] Type and screen(includes ind irect chin)on 10-07-2024 ABO and Rh group Nom (Bld) Blood group A Rh(D) negative [facility] Blood group antibody screen Ql Positive [facility] Interpretation and review of laboratory results Abnormal [facility] Inpatient Clinical Summaryon 10-06-2024 Inpatient Clinical Summary Inpatient Clinical Summary [address] [address] Clinical Summary Person Information Name: FABRIZIO CARBALLO [facility] Age: 24 Years : 2000 Sex: Female PCP: Nicolás MSN, MICROBIOLOGY PROFESSOR-MUSTAPHA, Jewell Alcala Marital Status: Single Race: White Ethnicity: Non- or Language: Comoran Visit Id: Visit Reason: Speciality: Acuity: Obs Enc Type: Outpatient in a Bed Med Service: Obstetrics Arrival: 10/06/2024 15:01:47 Discharge: 10/06/2024 16:03:46 Dispo Type: Home (Routine DC) Address: [address] [place] [address] Mary [place]OU[place] [id number] Provider Notes: Diagnosis: Problems Active (10/06/2024) Panic [...] Referring Physician: Follow up: With: Address: When: [facility], [address] [place] [address] , [place] [address] Business (1) Within 1 week Comments: Call for any problems. Patient Education Information: Normal [facility] Inpatient Patient Summaryon 10-06-2024 Inpatient Patient Summary Inpatient Patient Summary [address] [address] Patient Discharge Instructions PERSON INFORMATION Name: HARIS FABRIZIO Stroud Date of : 2000 Current Date: 10/06/2024 16:04:17 PHYSICIANS Admitting Physician: Kwan Batista MD Primary Care Physician: Nicolás MSN, MICROBIOLOGY PROFESSOR-Jewell LUCIANO PCP Phone Number: [phone] Comment: Discharge Diagnosis: Condition at Discharge: FABRIZIO [...] test results: Follow up: With: Address: When: [address] [place] [address] [employer] (1) Within 1 week Comments: Call for [...] signed up for this yet, please contact [employer] at [phone] to get signed up today. HUDSON Award [...] available as needed. Thank you for choosing [facility] Normal [facility] UA with Cult Rflxon 10-07-19 25 Color (U) Light-Yellow Normal Yellow [facility] Comment on above: Result Comment: Micr oscopic readings are only performed on those samples that meet specific criteria set forth by [facility]. Performed By: #### 4 [id number] #### [facility] [address] [place] [address] Glucose (U) [Mass/Vol] Negative Normal Negative [facility] Comment on above: Performed By: #### 4 [id number] #### [facility] [address] [place] [address] Ketones Ql (U) Negative Normal Negative [facility] Comment on above: Performed By: #### 4 [id number] #### [facility] [address] [place] [address] UA Blood Negative Normal Negative [facility] Comment on above: Performed By: #### 4 [id number] #### [facility] [address] [place] [address] UA Clarity Clear Normal Clear [facility] Comment on above: Performed By: #### 4 [id number] #### [facility] [address] [place] [address] UA Leuk Est Negative Normal Negative [facility] Comment on above: Performed By: #### 4 [id number] #### [facility] [address] [place] [address] UA Nitrite Negative Normal Negative [facility] Comment on above: Performed By: #### 4 [id number] #### [facility] [address] [place] [address] UA pH 7.0 Invalid Interpretation Code 5.0-9.0 [facility] Comment on above: Performed By: #### 4 [id number] #### [facility] [address] [place] [address] UA Protein Negative Normal Negative [facility] Comment on above: Performed By: #### 4 [id number] #### [facility] [address] [place] [address] UA Spec Grav 1.010 Invalid Interpretation Code 1.005-1.030 [facility] Comment on above: Performed By: #### 4 [id number] #### [facility] [address] [place] [address] UA Urobilinogen Negative Normal Negative [facility] Comment on above: Performed By: #### 4 [id number] #### [facility] [address] [place] [address] Urobilinogen (U) [Mass/Vol] Negative Normal Negative [facility] Comment on above: Performed By: #### 4 [id number] #### [facility] [address] [place] [address] UA Spec Desc Clean Catch Normal [facility] Comment on above: Performed By: #### 4 [id number] #### [facility] [address] [place] [id number] ALL CBC WITH AUTO DIFFon BASOPHILS ABSOLUTE AUTO 0 N [facility] Basophils/100 WBC (Bld) 0.2 % 0.2 - 2.0 % [facility] Eosinophils/100 WBC (Bld) 0.2 % Low 0.9 - 7.0 % [facility] Erythrocyte distribution width (RBC) [Ratio] 15.3 % High 11.0 - 15.0 % [facility] Hematocrit (Bld) [Volume fraction] 29.8 % Low 36.0 - 48.0 % [facility] Hemoglobin (Bld) [Mass/Vol] 9.4 g/dL Low 12.0 - 16.0 g/dL [facility] IMMATURE GRANULOCYTES ABS AUTO 0.06 High [facility] Immature granulocytes/100 WBC (Bld) 0.5 % 0.0 - 0.5 % [facility] Interpretation and review of laboratory results Abnormal [facility] LYMPHOCYTES ABSOLUTE AUTO 1.5 [facility] Lymphocytes/100 WBC (Bld) 12.3 % Low 20.5 - 60.0 % [facility] MCH (RBC) [Entitic mass] 24.6 pg Low 26.7 - 34.0 pg [facility] MCHC (RBC) [Mass/Vol] 31.5 g/dL 29.9 - 35.2 g/dL [facility] MCV (RBC) [Entitic vol] 78 fL Low 81.0 - 99.0 fL [facility] MONOCYTES ABSOLUTE AUTO 0.7 N [facility] Monocytes/100 WBC (Bld) 6.1 % 1.7 - 12.0 % [facility] NEUTROPHILS ABSOLUTE AUTO 9.9 High [facility] Neutrophils/100 WBC (Bld) 80.7 % High 43.0 - 75.0 % [facility] Platelet mean volume (Bld) [Entitic vol] 11.3 fL 9.5 - 13.5 fL [facility] TBH EO # 0 [facility] TBH PLT 278 [facility] TB RBC 3.82 Low [facility] TBH WBC 12.2 High [facility] CBC auto differentialon 09-16 [facility] Glucose 1h post 50g loadon 0 10-02-2024 [facility] Urinalysis macro (dipstick) panel (U)on 10-02-2024 Bilirubin, UA Negative Negative - 4(70) +++ mg/dL [facility] Blood, UA Negative Negative - 50 Julius/mcL [facility] Clarity, UA Clear [facility] Color, UA Yellow [facility] Glucose, UA Negative Negative - 1999(110) ++++ mg/dL [facility] Interpretation and review of laboratory results Abnormal [facility] Ketones, UA Negative Negative - 160(16) ++++ mg/dL [facility] Leukocytes, UA Negative Negative - 500+++ Yeimi/mcL [facility] Nitrite, UA Negative Negative - Positive [facility] pH, UA 6 5 - 9 [facility] Healthcare Protein, UA Trace Negative - 1999(20) ++++ mg/dL [facility] Healthcare Spec Grav, UA 1.02 1 - 1.03 [facility] Urobilinogen, UA 1.0 0.2 - 12 mg/dL [facility] Urinalysis macro (dipstick) panel (U)on 09-15-2024 Bilirubin, UA Negative Negative - 4(70) +++ mg/dL [facility] Blood, UA Negative Negative - 50 Julius/mcL [facility] Healthcare Clarity, UA Clear [facility] Color, UA Yellow [facility] Glucose, UA Negative Negative - 1999(110) ++++ mg/dL [facility] Interpretation and review of laboratory results Normal [facility] Ketones, UA Negative Negative - 160(16) ++++ mg/dL [facility] Leukocytes, UA Negative Negative - 500+++ Yeimi/mcL [facility] Nitrite, UA Negative Negative - Positive [facility] pH, UA 7 5 - 9 [facility] Healthcare Protein, UA Negative Negative - 1999(20) ++++ mg/dL [facility] Healthcare Spec Grav, UA 1.02 1 - 1.03 [facility] Urobilinogen, UA 1.0 0.2 - 12 mg/dL [facility] Urinalysis macro (dipstick) panel (U)Ordered By: Dee Dee Jiménez on 09-02-2024 Bilirubin, UA Negative Negative - 4(70) +++ mg/dL [facility] Blood, UA Negative Negative - 50 Julius/mcL [facility] Clarity, UA Clear [facility] Color, UA Yellow [facility] Glucose, UA Negative Negative - 1999(110) ++++ mg/dL [facility] Interpretation and review of laboratory results Normal [facility] Ketones, UA Negative Negative - 160(16) ++++ mg/dL [facility] Leukocytes, UA Negative Negative - 500+++ Yeimi/mcL [facility] Nitrite, UA Negative Negative - Positive [facility] pH, UA 6 5 - 9 [facility] Protein, UA Negative Negative - 1999(20) ++++ mg/dL [facility] Spec Grav, UA 1.025 1 - 1.03 [facility] Urobilinogen, UA 0.2 0.2 - 12 mg/dL [facility] ANTIBODY IDon 08-27-2024 ANTIBODY ID No new antibodies Normal [facility] Comment on above: Result Comment: Prev ious Anti-D,E Anti-E not showing in solid phase testing. Titer not indicated. Performed By: #### A BID #### [facility]) [address] [place] [address] VIR Antibody IDon 08-27-2024 Antibody ID No new antibodies [facility] Comment on above: Previous Anti-D,E Anti-E not showing in solid phase testing. Titer not indicated. [facility] LITTLE C ANTIGENon LITTLE C ANTIGEN Positive Normal [facility] Comment on above: Performed By: #### L TC #### [facility] ([facility]) [address] [place] [address] VIR TYPE AND SCREENon 08-27-2024 ABO_INTEP A Normal [facility] Comment on above: Performed By: #### T SC #### [facility] ([facility]) [address] [place] [address] VIR RH_INTEP Negative Normal [facility] Comment on above: Performed By: #### T SC #### [facility] ([facility]) [address] [place] [address] VIR Type and screen(includes ind irect chin)on 08-27-2024 ABO A [facility] Rh Nom (Bld) Negative [facility] Amphetamine Screen Ql (U)Ord ered By: Hever Wallace on 08-12-2024 Amphetamines Ql (U) Amphetamines screen Negativ e [facility] Amphetamines Ql (U) Negative Negative [facility] Appearance of UrineOrdered B y: Hever Wallace on 08-12-2024 Appearance (U) Urine appearance Abnormal Clear [facility] Appearance (U) Cloudy Critically abnormal Clear [facility] Comment on above: Order Comment: Comme nt c/o urinary symptoms or increased blood pressure Name Collection Type:: Clean-Voided Midstream Performed By: #### C UU, ADDONUALOVE, OBUDS #### [facility] [address] Bacteria [Presence] in Urine by AutomatedOrdered By: Hever Wallace on 08-12-2024 Bacteria Auto Ql (U) Bacteria [Presence] in Urine by Automated High None Seen [facility] Bacteria Auto Ql (U) 3+ [HPF] High None Seen [facility] Barbiturates [Presence] in U rine by Screen methodOrdered By: Hever Wallace on 08-12-2024 Barbiturates Screen Ql (U) Barbiturates [Presence] in Urine by Screen method Negative [facility] Barbiturates Screen Ql (U) Negative Negative [facility] Benzodiazepines Screen Ql (U )Ordered By: Hever Wallace on 08-12-2024 Benzodiazepines Ql (U) Benzodiazepines [Presence] in Urine by Screen method Negative [facility] Benzodiazepines Ql (U) Negative Negative [facility] Benzoylecgonine [Presence] i n Urine by Screen methodOrdered By: Hever Wallace on 08-12-2024 Benzoylecgonine Screen Ql (U) Benzoylecgonine [Presence] in Urine by Screen method Negative [facility] Benzoylecgonine Screen Ql (U) Negative Negative [facility] Bilirubin Test strip Ql (U)O rdered By: Hever Walalce on 08-12-2024 Bilirubin Ql (U) Bilirubin.total [Presence] in Urine by Test strip Negative [facility] Bilirubin Ql (U) Negative Negative [facility] Color Auto (U)Ordered By: Lilian Wallace on 08-12-2024 Color (U) Color of Urine by Auto Yellow [facility] Color of Urine by AutoOrdere d By: Hever Wallace on 08-12-2024 Color (U) Light-yellow Normal Yellow [facility] Comment on above: Order Comment: Comme nt c/o urinary symptoms or increased blood pressure Name Collection Type:: Clean-Voided Midstream Performed By: #### C UU, ADDONUAPLUS, OBUDS #### [facility] [address] [place] [address] [place] Dipstick and Microscopicon 0 08-12-2024 Bacteria,Urine 3+ High None Seen [facility] Comment on above: Order Comment: Comme nt c/o urinary symptoms or increased blood pressure Name Collection Type:: Clean-Voided Midstream Performed By: #### C UU, ADDONUAPLUS, OBUDS #### [address] Bilirubin,Urine Negative Normal Negative [facility] Comment on above: Order Comment: Comme nt c/o urinary symptoms or increased blood pressure Name Collection Type:: Clean-Voided Midstream Performed By: #### C UU, ADDONUAPLUS, OBUDS #### [address] Glucose Ql (U) Normal Normal Normal [facility] Comment on above: Order Comment: Comme nt c/o urinary symptoms or increased blood pressure Name Collection Type:: Clean-Voided Midstream Performed By: #### C UU, ADDONUAPLUS, OBUDS #### [facility] [address] [place] [address] [place] Hyaline Casts,Urine None Normal 0-8 [facility] Comment on above: Order Comment: Comme nt c/o urinary symptoms or increased blood pressure Name Collection Type:: Clean-Voided Midstream Performed By: #### C UU, ADDONUAPLUS, OBUDS #### [place] [address] [place] Mucus,Urine Rare Normal [facility] Comment on above: Order Comment: Comme nt c/o urinary symptoms or increased blood pressure Name Collection Type:: Clean-Voided Midstream Result Comment: PERF ORMED BY: [place] [address] PATHOLOGIST E LEARNING SPECIALIST MARQUITA LICONA M.D. Performed By: #### C UU, ADDONUAPLUS, OBUDS #### [place] [address] [place] Nitrite,Urine Negative Normal Negative [facility] Comment on above: Order Comment: Comme nt c/o urinary symptoms or increased blood pressure Name Collection Type:: Clean-Voided Midstream Performed By: #### C UU, ADDONUAPLUS, OBUDS #### [address] Occult Blood,Urine Negative Normal Negative [facility] Comment on above: Order Comment: Comme nt c/o urinary symptoms or increased blood pressure Name Collection Type:: Clean-Voided Midstream Result Comment: PERF ORMED BY: [place] [address] PATHOLOGIST E LEARNING SPECIALIST MARQUITA LICONA M.D. Performed By: #### C UU, ADDONUAPLUS, OBUDS #### [address] Protein,Urine Trace High Negative [facility] Comment on above: Order Comment: Comme nt c/o urinary symptoms or increased blood pressure Name Collection Type:: Clean-Voided Midstream Performed By: #### C UU, ADDONUAPLUS, OBUDS #### [place] [address] [place] RBC,Urine 1-2 Normal 0-4 [facility] Comment on above: Order Comment: Comme nt c/o urinary symptoms or increased blood pressure Name Collection Type:: Clean-Voided Midstream Performed By: #### C UU, ADDONUAPLUS, OBUDS #### [place] [address] [place] Specificy [place],Urine 1.019 Normal 1.001-1.030 [facility] Comment on above: Order Comment: Comme nt c/o urinary symptoms or increased blood pressure Name Collection Type:: Clean-Voided Midstream Performed By: #### C UU, ADDONUAPLUS, OBUDS #### [address] Squamous Epithelial Cell,Urine 5-9 High 0-2 [facility] Comment on above: Order Comment: Comme nt c/o urinary symptoms or increased blood pressure Name Collection Type:: Clean-Voided Midstream Performed By: #### C UU, ADDONUAPLUS, OBUDS #### [address] Urobilinogen,Urine Normal Normal Normal [facility] Comment on above: Order Comment: Comme nt c/o urinary symptoms or increased blood pressure Name Collection Type:: Clean-Voided Midstream Performed By: #### C UU, ADDONUAPLUS, OBUDS #### [address] WBC CLUMP, Urine Occasional High None Seen [facility] Comment on above: Order Comment: Comme nt c/o urinary symptoms or increased blood pressure Name Collection Type:: Clean-Voided Midstream Performed By: #### C UU, ADDONUAPLUS, OBUDS #### [address] WBC,Urine 20-49 High 0-4 [facility] Comment on above: Order Comment: Comme nt c/o urinary symptoms or increased blood pressure Name Collection Type:: Clean-Voided Midstream Performed By: #### C UU, ADDONUAPLUS, OBUDS #### [facility] [address] [place] [address] Epithelial cells.squamous [# /area] in Urine sediment by Automated countOrdered By: Hever Wallace on 08-12-2024 Epithelial cells.squamous Auto (Urine sed) [#/Area] Epithelial cells.squamous [#/area] in Urine sediment by Automated count High 0-2 [facility] Epithelial cells.squamous Auto (Urine sed) [#/Area] 5-9 [HPF] High 0-2 [facility] Erythrocytes [#/area] in Uri ne sediment by Automated countOrdered By: Hever Wallace on 08-12-2024 RBC Auto (Urine sed) [#/Area] Erythrocytes [#/area] in Urine sediment by Automated count 0-4 [facility] RBC Auto (Urine sed) [#/Area] 1-2 [HPF] 0-4 [facility] Glucose [Mass/volume] in Uri ne by Test stripOrdered By: Hever Wallace on 08-12-2024 Glucose Test strip (U) [Mass/Vol] Glucose [Mass/volume] in Urine by Test strip Normal [facility] Glucose Test strip (U) [Mass/Vol] Normal mg/dL Normal [facility] Hemoglobin Test strip Ql (U) Ordered By: Hever Wallace on 08-12-2024 Hemoglobin Ql (U) Hemoglobin [Presence] in Urine by Test strip Negative [facility] Hemoglobin Ql (U) Negative Negative [facility] Hyaline casts [#/area] in Ur ine sediment by Automated countOrdered By: Hever Wallace on 08-12-2024 Hyaline casts Auto (Urine sed) [#/Area] Hyaline casts [#/area] in Urine sediment by Automated count 0-8 [facility] Hyaline casts Auto (Urine sed) [#/Area] None [LPF] 0-8 [facility] Ketones Test strip Ql (U)Ord ered By: Hever Wallace on 08-12-2024 Ketones Ql (U) Ketones [Presence] in Urine by Test strip Negative [facility] Ketones [Presence] in Urine by Test stripOrdered By: Hever Wallace on 08-12-2024 Ketones Ql (U) Negative Normal Negative [facility] Comment on above: Order Comment: Comme nt c/o urinary symptoms or increased blood pressure Name Collection Type:: Clean-Voided Midstream Performed By: #### C UU, ADDONUAPLUS, OBUDS #### [address] Leukocyte clumps [Presence] in Urine by AutomatedOrdered By: Hever Wallace on 08-12-2024 Leukocyte clumps Auto Ql (U) Leukocyte clumps [Presence] in Urine by Automated High None Seen [facility] Leukocyte clumps Auto Ql (U) Occasional [LPF] High None Seen [facility] Leukocyte esterase [Presence ] in Urine by Test stripOrdered By: Hever Wallace on 08-12-2024 Leukocyte esterase Test strip Ql (U) Leukocyte esterase [Presence] in Urine by Test strip High Negative [facility] Leukocyte esterase Test strip Ql (U) 3+ High Negative [facility] Comment on above: Order Comment: Comme nt c/o urinary symptoms or increased blood pressure Name Collection Type:: Clean-Voided Midstream Performed By: #### C UU, ADDONUAPLUS, OBUDS #### [address] Leukocytes [#/area] in Urine sediment by Automated countOrdered By: Hever Wallace on 08-12-2024 WBC Auto (Urine sed) [#/Area] Leukocytes [#/area] in Urine sediment by Automated count High 0-4 [facility] WBC Auto (Urine sed) [#/Area] 20-49 [HPF] [facility] 04 [facility] Mucus [Presence] in Urine by AutomatedOrdered By: Hever Walalce on 08-12-2024 Mucus Auto Ql (U) Mucus [Presence] in Urine by Automated [facility] Mucus Auto Ql (U) Rare [LPF] [facility] Nitrite Test strip Ql (U)Ord ered By: Hever Wallace on 08-12-2024 Nitrite Ql (U) Nitrite [Presence] in Urine by Test strip Negative [facility] Nitrite Ql (U) Negative Negative [facility] OB URINE DRUG SCREEN (NO THC )on 08-12-2024 AMPHETAMINE SCREEN,URINE Negative Negative [facility] BARBITURATE SCREEN,URINE Negative Negative [facility] BENZODIAZEPINES SCREEN,URINE Negative Negative [facility] COCAINE SCREEN,URINE Negative Negative [facility] OPIATE SCREEN,URINE Negative Negative [facility] PHENCYCLIDINE SCREEN, URINE Negative Negative [facility] Comment on above: These are unconfirme d results and should not be used for legal purposes. Drug Cut-Off Concentration: AMPH 1000 ng/mL ANNE 200 ng/mL SHEY 200 ng/mL COCM 300 ng/mL OP 300 ng/mL PCP 25 ng/mL Comment s/s of acute impairment [facility] OB Urine Drug Screen (NO THC )on 08-12-2024 Amphetamine Screen,Urine Negative Normal Negative [facility] Comment on above: Order Comment: Comme nt s/s of acute impairment Performed By: #### C UU, ADDONUAPLUS, OBUDS #### [facility] [address] Barbiturate Screen,Urine Negative Normal Negative [facility] Comment on above: Order Comment: Comme nt s/s of acute impairment Performed By: #### C UU, ADDONUAPLUS, OBUDS #### [place] [address] [place] Benzodiazepines Screen,Urine Negative Normal Negative [facility] Comment on above: Order Comment: Comme nt s/s of acute impairment Performed By: #### C UU, ADDONUAPLUS, OBUDS #### [place] [address] [place] Cocaine Screen,Urine Negative Normal Negative [facility] Comment on above: Order Comment: Comme nt s/s of acute impairment Performed By: #### C UU, ADDONUAPLUS, OBUDS #### [place] [address] [place] Opiate Screen,Urine Negative Normal Negative [facility] Comment on above: Order Comment: Comme nt s/s of acute impairment Performed By: #### C UU, ADDONUAPLUS, OBUDS #### [place] [address] [place] Phencyclidine Screen, Urine Negative Normal Negative [facility] Comment on above: Order Comment: Comme nt s/s of acute impairment Result Comment: Thes e are unconfirmed results and should not be used for legal purposes. Drug Cut-Off Concentration: AMPH 1000 ng/mL ANNE 200 ng/mL SHEY 200 ng/mL COCM 300 ng/mL OP 300 ng/mL PCP 25 ng/mL PERFORMED BY: [place] [address] PATHOLOGIST E LEARNING SPECIALIST MARQUITA LICONA M.D. Performed By: #### C STEVENSON, RAYMUNDO MONTERROSO #### [facility] [address] [place] [id number] [facility] Opiates [Presence] in Urine by Screen methodOrdered By: Hever Wallace on 08-12-2024 Opiates Screen Ql (U) Opiates [Presence] in Urine by Screen method Negative [facility] Opiates Screen Ql (U) Negative Negative [facility] Phencyclidine Screen Ql (U)O rdered By: Hever Wallace on 08-12-2024 Phencyclidine Ql (U) Phencyclidine [Presence] in Urine by Screen method Negative [facility] Comment on above: These are unconfirme d results and should not be used for legal purposes. Drug Cut-Off Concentration: AMPH 1000 ng/mL ANNE 200 ng/mL SHEY 200 ng/mL COCM 300 ng/mL OP 300 ng/mL PCP 25 ng/mL Phencyclidine Ql (U) Negative Negative [facility] Comment on above: These are unconfirme d results and should not be used for legal purposes. Drug Cut-Off Concentration: AMPH 1000 ng/mL ANNE 200 ng/mL SHEY 200 ng/mL COCM 300 ng/mL OP 300 ng/mL PCP 25 ng/mL Protein Test strip (U) [Mass /Vol]Ordered By: Hever Wallace on 08-12-2024 Protein (U) [Mass/Vol] Protein [Mass/volume] in Urine by Test strip High Negative [facility] Protein (U) [Mass/Vol] Trace mg/dL High Negative [facility] Specific gravity Test strip (U) [Rel density]Ordered By: Hever Wallace on 08-12-2024 Specific gravity (U) [Rel density] Specific gravity of Urine by Test strip 1.001-1.030 [facility] Specific gravity (U) [Rel density] 1.019 1.001-1.030 [facility] Urinalysis complete panel (U )on 08-12-2024 Appearance (U) Cloudy Critically abnormal Clear [facility] BILIRUBIN,URINE Negative Negative [facility] Color (U) Light-Yellow Yellow [facility] Glucose Ql (U) Normal Normal [facility] Interpretation and review of laboratory results Abnormal [facility] Ketones Ql (U) Negative Negative [facility] Leukocyte esterase Test strip Ql (U) 3+ High Negative [facility] NITRITE,URINE Negative Negative [facility] OCCULT BLOOD,URINE Negative Negative [facility] pH (U) 5.5 [pH] 5.0 - 9.0 [facility] PROTEIN,URINE Trace High Negative [facility] SPECIFICY GRAVITY,URINE 1.019 1.00 1 - 1.030 [facility] UROBILINOGEN,URINE Normal Normal [facility] Comment c/o urinary symptoms or increased blood pressure Name Collection Type:: Clean-Voided Midstream [facility] Urine Cultureon 08-12-2024 Bacteria identified Cx Nom (U) ORGANISM: Escherichia coli (O:ESCCOL) [place] Count 20,000 Aerobic ASHLEY Charge (NMIC56) ----- [...] RESISTANT TO ALL B-LACTAM DRUGS. PERFORMED BY: [place] [address] PATHOLOGIST E LEARNING SPECIALIST MARQUITA LICONA M.D. Normal [facility] Comment on above: Performed By: #### C STEVENSON, KRISS, OBUDS #### [facility] [address] [place] [address] Urine cultureOrdered By: Filippo Wallace on 08-12-2024 Bacteria identified Cx Nom (U) Escherichia coli Abnormal [facility] Urobilinogen Test strip (U) [Mass/Vol]Ordered By: Hever Wallace on 08-12-2024 Urobilinogen (U) [Mass/Vol] Urobilinogen [Mass/volume] in Urine by Test strip Normal [facility] Urobilinogen (U) [Mass/Vol] Normal mg/dL Normal [facility] pH Test strip (U)Ordered By: Hever Wallace on 08-12-2024 pH (U) pH of Urine by Test strip 5.0-9.0 [facility] pH of Urine by Test stripOrd ered By: Hever Wallace on 08-12-2024 pH (U) 5.5 [pH] Normal 5.0-9.0 [facility] Comment on above: Order Comment: Comme nt c/o urinary symptoms or increased blood pressure Name Collection Type:: Clean-Voided Midstream Performed By: #### C UU, KRISS, OBUDS #### [facility] [address] [place] [address] RECURRENT VAGINITIS (HTRX)on 08-06-2024 ATOPOBIUM VAGINAE 0 [facility] ATOPOBIUM VAGINAE Not detected [facility] BVAB 2,3 (BACTERIAL VAGINOSIS ASSOCIATED BACTERIA 2, 3); MOBILUNCUS SPP 0 [facility] BVAB 2,3 (BACTERIAL VAGINOSIS ASSOCIATED BACTERIA 2, 3); MOBILUNCUS SPP Not detected [facility] OLIVA ALBICANS, PARAPSILOSIS, TROPICALIS 0 [facility] OLIVA ALBICANS, PARAPSILOSIS, TROPICALIS Not detected [facility] OLIVA GLABRATA 0 [facility] OLIVA GLABRATA Not detected [facility] OLIVA KRUSEI 0 [facility] OLIVA KRUSEI Not detected [facility] CHLAMYDIA TRACHOMATIS 0 [facility] CHLAMYDIA TRACHOMATIS Not detected N [facility] ERMB, C; MEFA 27.476 Abnormal [facility] ERMB, C; MEFA Detected Abnormal [facility] GARDNERELLA VAGINALIS 29.072 Abnormal [facility] GARDNERELLA VAGINALIS Detected Abnormal [facility] Interpretation and review of laboratory results Abnormal [facility] MEGASPHAERA (TYPES 1, 2) 0 [facility] MEGASPHAERA (TYPES 1, 2) Not detected [facility] MYCOPLASMA GENITALIUM 0 [facility] MYCOPLASMA GENITALIUM Not detected N [facility] NEISSERIA GONORRHOEAE 0 [facility] NEISSERIA GONORRHOEAE Not detected N [facility] TET B, TET M 26.01 Abnormal [facility] TET B, TET M Detected Abnormal [facility] TRICHOMONAS VAGINALIS 0 [facility] TRICHOMONAS VAGINALIS Not detected N [facility] Urinalysis macro (dipstick) panel (U)on 08-05-2024 Bilirubin, UA Negative Negative - 4(70) +++ mg/dL [facility] Blood, UA Negative Negative - 50 Julius/mcL [facility] Clarity, UA Clear [facility] Color, UA Yellow [facility] Glucose, UA Negative Negative - 1999(110) ++++ mg/dL [facility] Interpretation and review of laboratory results Normal [facility] Ketones, UA Negative Negative - 160(16) ++++ mg/dL [facility] Leukocytes, UA Positive Negative - 500+++ Yeimi/mcL [facility] Comment on above: small Nitrite, UA Negative Negative - Positive [facility] pH, UA 7 5 - 9 [facility] Protein, UA Negative Negative - 1999(20) ++++ mg/dL [facility] Spec Grav, UA 1.02 1 - 1.03 [facility] Urobilinogen, UA 0.2 0.2 - 12 mg/dL [facility] US Limitedon 07-28 US Limited Exam Date/Time: 07/27/2024 [...] MD Transcribed by: ANCELMO Technologist: HOLLIS [facility] ED Clinical Summaryon 2024 ED Clinical Summary ED Clinical Summary [address] [address] ED Clinical Summary Person Information Name: FABRIZIO CARBALLO [place] Age: 24 Years : 2000 Sex: Female Language: Comoran PCP: Nicolás MSN, MICROBIOLOGY PROFESSOR-VEGETABLE PICKER, Jewell [place] Marital Status: Single Visit Id: [...] 07/27/2024 22:57:00 07/27/2024 22:57:00 07/27/2024 22:57:00 ADDRESS: [address] [place] [address] Rafal LUND [place] [id number] [place] [facility] DOC NOTES: MEDICAL INFORMATION: Prescriptions Given: [...] EDUCATION INFORMATION: Instructions: Abdominal Pain During , Wxmr-dm-Mhpl Follow up: With: Address: [facility] [address] [place] [address] [place] [address] Business (1) In 3 days 07/30/2024 Comments: Please follow-up with OB for further evaluation and management. Return to the ED for any new or worsening symptoms or if you have any concerns. With: Address: When: Jewell Monzon [address] [place] [phone] Business (1) In 3 days DIAGNOSIS: Abdominal pain in ; Unspecified abdominal pain Normal [facility] ED Note-Physicianon 07-28-19 ED Note-Physician ED [...] and Complexity of Problems Differential Diagnosis: [] [facility] Data External documents reviewed: [] My [...] Andrey ARTHUR In 3 days 07/30/[address] , [place] [address]- Business (1) Additional Instructions: Please follow-up with OB for further evaluation and management. Return to the ED for any new or worsening symptoms or if you have any concerns. Jewell Monzon In 3 days [address] [place] [address] [phone] Business (1) Additional Instructions: Patient Education Abdominal Pain During , Qsaj-li-Zlra Problem List/Past Medical History Ongoing Abnormal chromosomal [...] Medications Inpat (more content not included)... Normal [facility] Comment on above: Result Comment: Elec tronically Signed By: Earline Bond DO\.br\Date and Time Signed: 07/27/24 23:36 EDT ED Patient Summaryon 025 ED Patient Summary ED Patient Summary [place] [id number] Patient Discharge Instructions Person Information Name: FABRIZIO CARBALLO Age: 24 Years Arrival Date: 07/27/2024 21:26:11 Discharge Diagnosis: Abdominal pain in ; Unspecified abdominal pain Primary Care Physician: Nicolás MINA, MICROBIOLOGY PROFESSOR-VEGETABLE PICKER, Jewell Alcala Provider Information Primary Provider: Earline Bond DO Advanced Office Machine Mechanic:None The exam and treatment you received in the Emergency Department were for an urgent problem and are not intended as complete care. It is important that you follow up with a doctor, nurse practitioner, or physician???s butcher's assistant for ongoing care. If your symptoms become worse or you do not improve as expected and you are unable to reach your usual health care provider, you should return to the Emergency Department. We are available 24 hours a day. FABRIZIO CARBALLO has been given the following list of patient education materials, prescriptions and follow-up instructions: Follow-up Instructions: With: Address: When: [facility], [address] [place] [address] [place] [address] Business (1) In 3 days 07/30/2024 Comments: Please follow-up with OB for further evaluation and management. Return to the ED for any new or worsening symptoms or if you have any concerns. With: Address: When: Jewell Monzon [facility] [place] [phone] Business (1) In 3 days In the event that this physician does not participate in your insurance network, please consult with your insurance company to find a nearby participating provider. Patient Education Materials: Abdominal Pain During , Nbcr-yi-Kmsa A MESSAGE TO ALL PATIENTS REGARDING OPIOIDS PRESCRIPTION OPIOIDS: WHAT YOU NEED TO KNOW Prescription opioids can be used to help relieve mzpayovw-iw-ugmoii pain and are often prescribed following a [...] drug take (more content not included)... Normal [facility] UA with Cult Rflxon 07-28-19 25 Bilirubin Ql (U) Negative Normal Negative [facility] Comment on above: Performed By: #### 4 [id number] #### [facility] [address] [place] [address] Clarity (U) Clear Normal Clear [facility] Comment on above: Performed By: #### 4 [id number] #### [facility] [address] [place] [address] Color (U) Light-Yellow Normal Yellow [facility] Comment on above: Result Comment: Micr oscopic readings are only performed on those samples that meet specific criteria set forth by [facility]. Performed By: #### 4 [id number] #### [facility] [address] [place] [address] Glucose Ql (U) Negative Normal Negative [facility] Comment on above: Performed By: #### 4 [id number] #### [facility] [address] [place] [address] Hemoglobin Auto test strip (U) [Mass/Vol] Negative Normal Negative [facility] Comment on above: Performed By: #### 4 [id number] #### [facility] [address] [place] [address] Ketones Auto test strip Ql (U) Negative Normal Negative [facility] Comment on above: Performed By: #### 4 [id number] #### [facility] [address] [place] [address] Leukocyte esterase Auto test strip Ql (U) Negative Normal Negative [facility] Comment on above: Performed By: #### 4 [id number] #### [facility] [address] [place] [address] Nitrite Auto test strip Ql (U) Negative Normal Negative [facility] Comment on above: Performed By: #### 4 [id number] #### [facility] [address] [place] [address] pH (U) 5.5 [pH] Invalid Interpretation Code 5.0-9.0 [facility] Comment on above: Performed By: #### 4 [id number] #### [facility] [address] [place] [address] Protein Ql (U) Negative Normal Negative [facility] Comment on above: Performed By: #### 4 [id number] #### [facility] [address] [place] [address] Specific gravity (U) [Rel density] 1.021 Invalid Interpretation Code 1.005-1.030 [facility] Comment on above: Performed By: #### 4 [id number] #### [facility] [address] [place] [address] Urobilinogen (U) [Mass/Vol] Negative Normal Negative [facility] Comment on above: Performed By: #### 4 [id number] #### [facility] [address] [place] [address] Type of Urine collection method Clean Catch Normal [facility] Comment on above: Performed By: #### 4 [id number] #### [facility] [address] [place] [address] URINALYSISOrdered By: SYSTEM SYSTEM on 07-27-2024 Bilirubin Ql (U) Negative Normal Negativemg/ d L [facility] UA Auto SS Clarity (U) Clear (5/11/25 9:53 PM) Normal Clear [facility] UA Auto SS Color (U) Light-Yellow 1 (07/27/24 9:53 PM) Normal Yellow [facility] UA Auto SS Comment on above: Interpretive Data: M icroscopic readings are only performed on those samples that meet specific criteria set forth by [facility]. Glucose Ql (U) Negative Normal [...] Desc Clean Catch (07/27/24 9:53 PM) Normal [facility] UA Auto SS ALL MISCELLANEOUS TESTon MISCELLANEOUS TEST COMMENT . [facility] Comment on above: Test Ordered: [id number] Antibody Identification Antibody Id. #1 Anti-D CB Reference Range: . Chin Titer #1 2 CB Reference Range: . If a numerical titer result has been reported, please note that this result is the reciprocal value of titer results formerly reported as 1:2,1:4, 1:8, etc. These results are now reported as 2, 4, 8, etc. The [place] [employer] has recommended this change in titer reporting formats to simply reflect the reciprocal value of the titer. Antibody Id. #2 RESOURCE CENTER TEACHER NOLAB Reference Range: . Chin Titer #2 RESOURCE CENTER TEACHER [place]OL[place] Reference Range: . Performed at: - [facility] [id number] Concrete Pump Operator Helper: Buddy Varela PhD, Phone: [phone] ANTIBODY D TITER [id number] Antibody Identification [facility]inalysis macro (dipstick) panel (U)Ordered By: Dee Dee Jiménez on 07-14-2024 Bilirubin, UA Negative Negative - 4(70) +++ mg/dL [facility] Blood, UA Negative Negative - 50 Julius/mcL [facility] Clarity, UA Clear [facility] Color, UA Yellow [facility] Glucose, UA Negative Negative - 2000(110) ++++ mg/dL [facility] Interpretation and review of laboratory results Normal [facility] Ketones, UA Negative Negative - 160(16) ++++ mg/dL [facility] Leukocytes, UA Negative Negative - 500+++ Yeimi/mcL [facility] Nitrite, UA Negative Negative - Positive [facility] pH, UA 7 5 - 9 [facility] Protein, UA Negative Negative - 1999(20) ++++ mg/dL [facility] Spec Grav, UA 1.015 1 - 1.03 [facility] Urobilinogen, UA 0.2 0.2 - 12 mg/dL [facility] BOX TESTon 06-12-2024 BOX TEST SENT OUT [facility] BOX1 [facility] BOX2 06/12/2024 [facility] Met[facility] Panel[facility] 05-18 Glucose [Mass/Vol] 97 mg/dL [facility] CBC without diffon Hematocrit (Bld) [Volume fraction] 33.4 % [facility] Hemoglobin (Bld) [Mass/Vol] 10.5 g/dL [facility] Platelets (Bld) [#/Vol] 280 10*3/uL [facility] Rbc Mcv (Fl) By Automated Count 78.2 [facility] Drug Screen, Urineon 025 Amphetamine/Methampheta mine Negative [facility] Barbiturates Negative [facility] Benzodiazepines Negative [facility] Cocaine Metabolite Negative [facility] Methadone Negative [facility] Opiates Negative [facility] Oxycodone negatine [facility] Phencyclidine Negative [facility] Thc Marijuana, Urine Negative [facility] HBV surface Ag IA Qlon 06-12 Hepatitis B Surface Antigen Negative [facility] HCG ( test) Ql (U)o n 06-12-2024 Interpretation and review of laboratory results Abnormal [facility] Preg Test, Ur Positive Negative [facility] HIV 1+2 Ab+HIV1 p24 Ag IA Ql on 06-12-2024 HIV 1&2 AB/AG Non-Reactive [facility] Hemoglobin A1con 06-12-2024 HbA1c (Bld) [Mass fraction] 5 % 4.0 - 6.0 % [facility] No Panel Informationon 06-12 [facility] Rubella IGG immune statuson 06-12-2024 Rubella immune IgG 1.46 [facility] T. pallidum IgG+IgM IA Ql (S )on 06-12-2024 Syphilis Non-Reactive [facility] Type and screenOrdered By: Jairon King on 06-12-2024 Abo/Rh(D) Negative [facility] US OB TRANSVAGINALon 025 US OB TRANSVAGINAL [...] II, MD, PHD at 12-Jun-2024 11:17:26 PM [facility] Normal Not Available Comment on above: Order Comment: US OB TRANSVAGINAL No LMP recorded. Urinalysis macro (dipstick) panel (U)on 06-12-2024 Bilirubin, UA Negative Negative - 4(70) +++ mg/dL [facility] Blood, UA Negative Negative - 50 Julius/mcL [facility] Clarity, UA Clear [facility] Color, UA Yellow [facility] Glucose, UA Negative Negative - 2000(110) ++++ mg/dL [facility] Interpretation and review of laboratory results Normal [facility] Ketones, UA Negative Negative - 160(16) ++++ mg/dL [facility] Leukocytes, UA Negative Negative - 500+++ Yeimi/mcL [facility] Nitrite, UA Negative Negative - Positive [facility] pH, UA 6.5 5 - 9 [facility] Protein, UA Negative Negative - 2000(20) ++++ mg/dL [facility] Spec Grav, UA 1.02 1 - 1.03 [facility] Urobilinogen, UA 0.2 0.2 - 12 mg/dL [facility] Chlamydia/Gonococcus, NAAon 06-07-2024 C. trachomatis rRNA ELYSIA+probe Ql (Unsp spec) Negative Invalid Interpretation Code Negative [facility] Comment on above: Performed By: #### 1 [id number] #### [facility] [address] [place] [address] N. gonorrhoeae rRNA ELYSIA+probe Ql (Unsp spec) Negative Invalid Interpretation Code Negative [facility] Comment on above: Result Comment: Perf ormed at: =G [facility] [place] [address] JANEL Mccord [id number] MD Irving Knott Performed By: #### 1 [id number] #### [facility] [address] [place] [address] ED Clinical Summaryon 2024 ED Clinical Summary ED Clinical Summary [address] [address] ED Clinical Summary Person Information Name: FABRIZIO CARBALLO/[place] Age: 23 Years : 2000 Sex: Female Language: Com[place]an PCP: Nicolás MINA, MICROBIOLOGY PROFESSOR-Jewell LUCIANO Marital Status: Single Phone: [phone] Visit Id: Visit Reason: Vaginal bleeding - [...] 20:46:03 06/04/2024 20:46:03 06/04/2024 20:46:03 ADDRESS: [address] [place] [id number] PHYS DOC NOTES: MEDICAL INFORMATION: Prescriptions Given: New Medications [facility], [address] [place], [place] [id number], [phone] nystatin topical (nystatin Top 100,000 units/g Crm [...] Follow up: With: Address: When: Jewell Monzon [facility] [address] [place], [place] [phone] Business (1) In 3 days 06/07/2024 Comments: Use the nystatin cream as prescribed for the next 7 to 10 days. 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 Please return to the ED for any new or worsening symptoms. DIAGNOSIS: Vaginal candidiasis Normal [facility] ED Note-Physicianon 06-05-19 ED Note-Physician ED Note-Physician Basic Information Time Seen: Earline Bond DO 06/04/2024 19:52 Chief Complaint pt reports being [...] exam. She states she was calling her PROTOTYPE FABRICATOR however they have not called back. She [...] and Complexity of Problems Differential Diagnosis: [] [facility] Data External documents reviewed: [] My [...] date 06/04/24 20:34:00 EDT nystatin topical, 1 dai, Topical, TID, 15 gram, Refill(s) 0, [facility]24, 165, cm, 06/04/24 18:37:00 EDT, Height/Length Dosing, 81.9, kg, 06/04/24 18:37:00 EDT, Weight Dosing Add on Test Cervical Culture Chlamydia/Gonococcus , ELYSIA Medications Administered Given nystatOintment [F], 1 adi, Topical Disposition Plan Discharge Prescription List Prescriptions nystatin Top 100,000 units/g Crm 15 gram, 1 adi, Topical, TID Follow-up With When Contact Information Jewell Monzon In 3 days 06/07/2024 EDT [address] [place] [address] [phone] Business (1) Additional Instructions: Use the nystatin cream as prescribed for the next 7 to 10 days. 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 Please return to [...] inpatient medi (more content not included)... Normal [facility] Comment on above: Result Comment: Elec tronically Signed By: Earline Bond DO\.br\Date and Time Signed: 06/04/24 22:34 EDT ED Patient Summaryon 025 ED Patient Summary ED Patient Summary [place] [id number] Patient Discharge Instructions Person Information Name: FABRIZIO CARBALLO Age: 23 Years Arrival Date: 06/04/2024 18:29:21 Discharge Diagnosis: Vaginal candidiasis Primary Care Physician: Nicolás MSN, MICROBIOLOGY PROFESSOR-VEGETABLE PICKER, Jewell Alcala Provider Information Primary Provider: Earline Bond DO Advanced Office Machine Mechanic:None The exam and treatment you received in the Emergency Department were for an urgent problem and are not intended as complete care. It is important that you follow up with a doctor, nurse practitioner, or physician???s butcher's assistant for ongoing care. If your symptoms [...] Follow-up Instructions: With: Address: When: Jewell Monzon [address] [place] [phone] Business (1) In 3 days 06/07/2024 Comments: Use the nystatin cream as prescribed for the next 7 to 10 days. 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 Please return to [...] opioids can be used to help relieve uykzudaq-xb-gwljme pain and are often prescribed following a [...] Drug Admini (more content not included)... Normal [facility] No Panel InformationOrdered By: Isabelle Gusman on 06-04-2024 WP No Trichomonas vaginalis present No clue cells present [facility] ED Note-Physicianon 05-30-19 ED Note-Physician ED Note-Physician Basic Information Time Seen: Colby CROSS, Charlie Bishop. 05/28/2024 15:09 Chief Complaint pt is battling [...] guarding. No tenderness. : Performed with nurse master merchandiser at bedside. No obvious lesion, redness, vaginal [...] guarding or distention. exam performed with nurse master merchandiser at bedside demonstrates no obvious lesion, redness, or vaginal drainage. No bleeding,, in the vaginal canal or around the skin or around the vagina. Patient did not want full pelvic exam and wanted to do this with her FILTER PULP WASHER instead. Given patient's complaints beta-hCG quant, urine, [...] discharged home with close follow-up with her FILTER PULP WASHER Dr. Arthur. Return to ED precautions were reviewed with the patient at length. Assessment/Plan Intrauterine (Z34.90: Encounter for supervision of normal , unspecified, unspecified trimester) Subchorionic bleed (O46.8X9: Other antepartum hemorrhage, unspecified trimester) Vaginal bleeding in (O46.90: Antepartum hemorrhag (more content not included)... Normal [facility] Comment on above: Result Comment: Elec tronically Signed By: Charlie Bowman PA-C\.br\Date and Time Signed: 05/28/24 22:03 EDT\.br\Electronically Co-Signed By: Adolph Aleman M.D.\.br\Date and Time Co-Signed: 05/29/24 07:15 [facility]T [facility]-28-2024 HCG.beta subunit Qn [id number] m[IU]/mL High 1-3 [facility] Comment on above: Result Comment: 'F N ON < 1 - 3' ' 0.2 - 1 WEEK = 5 TO 50' ' 1 - 2 WEEKS = 50 - 500' ' 2 - 3 WEEKS = 100 - 5000' ' 3 - 4 WEEKS = 500 - 51778' ' 4 - 5 WEEKS = 1000 - 70813' ' 5 - 6 WEEKS = 02976 - 327437' ' 6 - 8 WEEKS = 53416 - 962125' ' 8 - 12 WEEKS = 03809 - 778088' Performed By: #### 2 [id number] #### [facility] [address] [place], [place] [id number] CHEMISTRYOrdered By: SYSTEM SYSTEM on 05-28-2024 HCG.beta subunit Qn [id number] m[IU]/mL High 1 - 3 mIU/m L [facility] Comment on above: Result Comment: 'F N ON < 1 - 3' ' 0.2 - 1 WEEK = 5 TO 50' ' 1 - 2 WEEKS = 50 - 500' ' 2 - 3 WEEKS = 100 - 5000' ' 3 - 4 WEEKS = 500 - 53697' ' 4 - 5 WEEKS = 1000 - 03695' ' 5 - 6 WEEKS = 03488 - 455739' ' 6 - 8 WEEKS = 99709 - 365216' ' 8 - 12 WEEKS = 44786 - 732079' ED Clinical Summaryon 2024 ED Clinical Summary ED Clinical Summary [address] [address] ED Clinical Summary Person Information Name: FABRIZIO CARBALLO [facility] Age: 23 Years : 2000 Sex: Female Language: Comoran PCP: Nicolás MINA, MICROBIOLOGY PROFESSOR-VEGETABLE PICKERJewell Marital Status: Single Phone: [phone] Visit Id: Visit Reason: Skin problem; Vaginal [...] 05/28/2024 17:19:19 05/28/2024 17:19:19 05/28/2024 17:19:19 ADDRESS: [address] [place] [address] [address] [place] [phone] PHYS DOC NOTES: MEDICAL INFORMATION: Prescriptions Given: [...] Andrey ARTHUR [facility], [address] [facility] , [place] [address] Business (1) In 3 days 05/31/2024 With: Address: When: Jewell Monzon [facility], [place] [phone] Business (1) In 3 days DIAGNOSIS: Intrauterine ; Subchorionic bleed; Vaginal bleeding in ; Vaginal irritation Normal [facility] ED Patient Summaryon 025 ED Patient Summary ED Patient Summary [place] [id number] Patient Discharge Instructions Person Information Name: FABRIZIO CARBALLO Age: 23 Years Arrival Date: 05/28/2024 15:03:57 Discharge Diagnosis: Intrauterine ; Subchorionic bleed; Vaginal bleeding in ; Vaginal irritation Primary Care Physician: Nicolás MSN, MICROBIOLOGY PROFESSOR-VEGETABLE PICKER, Jewell Alcala Provider Information Primary Provider: Adolph Aleman M.D. Advanced Office Machine Mechanic:Charlie Bowman PA-C The exam and treatment you received in the Emergency Department were for an urgent problem and are not intended as complete care. It is important that you follow up with a doctor, nurse practitioner, or physician???s butcher's assistant for ongoing care. If your symptoms [...] Andrey ARTHUR [facility], [address] [facility] [place] [address] Business (1) In 3 days 05/31/2024 With: Address: When: Jewell Aguilar [facility], [place] [phone] Business (1) In 3 days In the [...] opioids can be used to help relieve vctkxeqn-qo-rcijih pain and are often prescribed following a [...] mail-back p (more content not included)... Normal [facility] UA with Cult Rflxon 05-29-19 25 Bilirubin Ql (U) Negative Normal Negative [facility] Comment on above: Performed By: #### 4 [id number] #### [facility] [address] [place] [address] Clarity (U) Clear Normal Clear [facility] Comment on above: Performed By: #### 4 [id number] #### [facility] [address] [place] [address] Color (U) Colorless Abnormal Yellow [facility] Comment on above: Result Comment: Micr oscopic readings are only performed on those samples that meet specific criteria set forth by [facility]. Performed By: #### 4 [id number] #### [facility] [address] [place] [address] Glucose Ql (U) Negative Normal Negative [facility] Comment on above: Performed By: #### 4 [id number] #### [facility] [address] [place] [address] Hemoglobin Auto test strip (U) [Mass/Vol] Negative Normal Negative [facility] Comment on above: Performed By: #### 4 [id number] #### [facility] [address] [place] [address] Ketones Auto test strip Ql (U) Negative Normal Negative [facility] Comment on above: Performed By: #### 4 [id number] #### [facility] [address] [place] [address] Leukocyte esterase Auto test strip Ql (U) Negative Normal Negative [facility] Comment on above: Performed By: #### 4 [id number] #### [facility] [address] [place] [address] Nitrite Auto test strip Ql (U) Negative Normal Negative [facility] Comment on above: Performed By: #### 4 [id number] #### [facility] [address] [place] [address] pH (U) 6.0 [pH] Invalid Interpretation Code 5.0-9.0 [facility] Comment on above: Performed By: #### 4 [id number] #### [facility] [address] [place] [address] Protein Ql (U) Negative Normal Negative [facility] Comment on above: Performed By: #### 4 [id number] #### [facility] [address] [place] [address] Specific gravity (U) [Rel density] 1.003 Invalid Interpretation Code 1.005-1.030 [facility] Comment on above: Performed By: #### 4 [id number] #### [facility] [address] [place] [address] Urobilinogen (U) [Mass/Vol] Negative Normal Negative [facility] Comment on above: Performed By: #### 4 [id number] #### [facility] [address] [place] [address] Type of Urine collection method Clean Catch Normal [facility] Comment on above: Performed By: #### 4 [id number] #### [facility] [facility] [address] [place] [address] URINALYSISOrdered By: SYSTEM SYSTEM on 05-28-2024 Bilirubin Ql (U) Negative Normal Negativemg/ d L [facility] UA Auto SS Clarity (U) Clear (05/28/24 3:50 PM) Normal Clear [facility] UA Auto SS Color (U) Colorless 1 *ABN* (05/28/24 3:50 PM) Invalid Interpretation Code Yellow [facility] UA Auto SS Comment on above: Interpretive Data: M icroscopic readings are only performed on those samples that meet specific criteria set forth by [facility]. Glucose Ql (U) Negative Normal [...] L [facility] UA Auto SS URINALYSISOrdered By: Charlie Bowman on 05-28-2024 UA Spec Desc Clean Catch (05/28/24 3:50 PM) Normal [facility] UA Auto SS US 1st Trimesteron 05-28-2024 [...] x 1.4 cm ill-defined subchorionic hemorrhage inferiorly.. [place] Rump Length: 2.1 cm, which corresponds Composite [...] - Transabdominal Ultrasound Performed FHR (bpm) 170 [place] Rump Length (in cm) Size = Dates Ordering Provider: Charlie Bowman FINAL REPORT Dictated: 05/28/2024 6:04 pm Girish Edmond MD Signed (Electronic Signature): 05/28/2024 6:04 pm Signed by: Girish Edmond MD Transcribed by: ANCELMO Technologist: ADELE [facility] PREG QUANT HCGon 025 HCG QUANTITATIVE 60240 mIU/mL [facility] Comment on above: 5-50 0.2-1 WEEK 50-500 1-2 WEEKS 100-5,000 2-3 WEEKS 500-10,000 3-4 WEEKS 1,000-50,000 4-5 WEEKS 10,000-100,000 5-6 WEEKS 15,000-200,000 6-8 WEEKS 10,000-100,000 2-[facility] H[facility]on 025 HCG QUANTITATIVE 11816 mIU/mL [facility] Comment on above: 5-50 0.2-1 WEEK 50-500 1-2 WEEKS 100-5,000 2-3 WEEKS 500-10,000 3-4 WEEKS 1,000-50,000 4-5 WEEKS 10,000-100,000 5-6 WEEKS 15,000-200,000 6-8 WEEKS 10,000-100,000 2-3 MONTHS [facility] [place] .HPV Genotypes 16/18,45 HPV 16 DNA Probe+sig amp Ql (Cvx) Negative Invalid Interpretation Code Negative [facility] Comment on above: Performed By: #### 3 [id number] #### [facility] [address] [place] [address] HPV 18+45 E6+E7 mRNA ELYSIA+probe Ql (Cvx) Negative Invalid Interpretation Code Negative [facility] Comment on above: Result Comment: Perf ormed at: [facility] [address] [place], [place] [id number] MD Irving Knott Performed By: #### 3 [id number] #### [facility] [address] [place] [address] .HPV, Aptima High 16/18,45on 05-12-2024 HPV 16+18+31+33+35+39+45+51 +52+56+58+59+66+68 DNA Probe+sig amp Ql (Cvx) Positive Abnormal Negative [facility] Comment on above: Result Comment: This nucleic acid amplification test detects fourteen high-risk HPV types (16,18,31,33,35,39,45,51,52,56,58,59,66,68) without differentiation. Performed at: =[facility] [address] JANEL Mccord [id number] MD Irving Knott Performed By: #### 3 [id number] #### [facility] [address] [place] [address] PAP [id number] 05-12-2024 Cytology report Cyto stain Doc (Cvx/Vag) Note Abnormal [facility] Comment on above: Result Comment: TEST S RESULT FLAG UNITS REF RANGE LAB Clinician Provided Cytology Information Source.............Cervix No. of containers..01 ThinPrep Vial DIAGNOSIS: [A] 01 EPITHELIAL CELL ABNORMALITY. ATYPICAL SQUAMOUS CELLS OF UNDETERMINED SIGNIFICANCE (ASC-US). Recommendation: [A] 01 Suggest follow up as clinically appropriate. Specimen adequacy: 01 Satisfactory for evaluation. No endocervical component is identified. Performed by: Yun Sanchez, Facilities Painter (ASCP) Electronically si... Paige Yates MD, Pathologist . 01 Pathologist [...] Low,>-Panic High,A-Abnormal,AA-Critical Abnormal Performed at: [address] [place] [address] Hedy Villatoro MD, Performed at: [facility] [id number] MD Irving Knott Performed By: #### 3 [id number] #### [facility] [address] [place] [address] Physician Cb Bazzi 025 Pathologist review Mikael (Unsp spec) [Interp] Note Invalid Interpretation Code [facility] Comment on above: Result Comment: TEST S RESULT FLAG UNITS REF RANGE LAB Physician Cb Santana 01 Performed FLAG LEGEND: L-Low Normal,H-High Normal,LL-Alert Low,HH-Alert High <-Panic Low,>-Panic High,A-Abnormal,AA-Critical Abnormal Performed at: [address] [place] [address] Hedy Villatoro MD, Performed at: [facility] [id number] MD Irving Knott Performed By: #### 3 [id number] #### [facility] [address] [place] [address] C Urineon 05-07-2024 Bacteria identified Cx Nom [...] Locations R1: This test was performed at: [facility], [address] [place] [address], [phone]- , , Normal [facility] Comment on above: Performed By: #### 2 [id number] #### [facility] [address] [place], [place] [id number] PAP [id number] 05-05-2024 Collection Technique BRUSH-SPATULA Normal [facility] Comment on above: Performed By: #### 3 [id number] #### [facility] [address] [place] [address] Gynecological Body Site CERVIX Normal [facility] Comment on above: Performed By: #### 3 [id number] #### [facility] [address] [place] [address] Choriogonadotropin.beta subu nit [Units/volume] in Serum or PlasmaOrdered By: Andrey Arthur on 04-29-2024 HCG.beta subunit Qn Choriogonadotropin.b eta subunit [Units/volume] in Serum or Plasma [facility] Comment on above: Approximate Approxim ate hCG Gestational Age Range (mIU/ml) (weeks)0.2-1 5-50 1-2 50-500 2-3 100-5,000 3-4 500-10,000 4-5 1,000-50,000 5-6 10,000-100,000 6-8 15,000-200,000 8-12 10,000-100,000 HCG,Quantitativeon 5 HCG,Quantitative 139.86 m[iU]/mL Normal [facility] Comment on above: Result Comment: Appr oximate Approximate hCG Gestational Age Range (mIU/ml) (weeks) 0.2-1 5-50 1-2 50-500 2-3 100-5,000 3-4 500-10,000 4-5 1,000-50,000 5-6 10,000-100,000 6-8 15,000-200,000 8-12 10,000-100,000 PERFORMED BY: [place] [address] PATHOLOGIST E LEARNING SPECIALIST MARY KATE GU M.D. Performed By: #### H CGQNT #### [facility] [address] [place] [address] Urine Cultureon 03-15-2024 Bacteria identified Cx Nom (U) No Growth 2 Days PERFORMED BY: [place] [address] PATHOLOGIST E LEARNING SPECIALIST MARY KATE GU M.D. Normal [facility] Comment on above: Performed By: #### C UU #### [facility] [address] [place] [address] Urine cultureOrdered By: Herminio Clemente on 03-15-2024 Bacteria identified Cx Nom (U) Urine culture [facility] Interdisciplinary Note - Soc ial Workeron 03-03-2024 Interdisciplinary Note - Song And Dance Performer Interdisciplinary Note - Song And Dance Performer Consult for positive depression screen received. SW attempted to contact patient to discuss the results of her screen, however the number on file is not in service. Normal [facility] Nonvisit Note - PTon 024 Nonvisit Note - PT Nonvisit Note - PT Chart reviewed with eval prepped for scheduled eval. KK Normal [facility] Ambulatory Visit Summaryon 0 10-09-2023 Ambulatory [...] Jewell CHRISTOPHER When: In 1 month Where: [address] [place] [phone] Medications What How Much When Instructions New duloxetine (Cymbalta 20 mg oral delayed release capsule) 1 Capsules By Mouth 2 times a day Duration: 30 Days Pickup at [facility] New predniSONE (predniSONE 10 mg Tab) 10 Milligram By Mouth As Directed Duration: 8 Days 4 QDx2 days; 3 QDx2 d; 2 QDx2 d; 1 QDx2d; d/ c Pickup at [facility] Unchanged cephalexin (cephalexin 500 mg Cap) 1 Capsules By Mouth Every 12 hours Duration: 7 Days Unchanged naproxen (naproxen 500 mg Tab) 1 Tablets By Mouth 2 times a day Duration: 10 Days Pickup at [facility] Pharmacy Information [facility]: [address], [place] [id number] [phone] Allergies Abilify (Hallucinations) meloxicam (Constipation) Vicodin (Rash) [...] breathing. To (more content not included)... Normal [facility] C Urineon 10-09-2023 Bacteria identified Cx [...] Locations R1: This test was performed at: [facility], [address] [place] [address], [address] [place] [address], [facility] Comment on above: Performed By: #### 2 [id number] #### [facility] [address] [place] [address] Family Medicine Office/Clini c Noteon 10-09-2023 Family [...] DEXA: NA Labs: 10/06/2023 List of Providers: FILTER PULP WASHER: Dr Arthur counseling: Family life counseling LABS [...] other medications. She was referred to a community living specialist but was unable to secure an [...] an x-ray and a CT scan at [facility] yesterday, 10/08/2023. She has not undergone [...] lumbar region) An x-ray was performed at [facility], revealing grade 1 anterolisthesis of the lumbar spine. Muscle relaxants and naproxen were administered. Additionally, a urinary tract infection was identified, fo (more content not included)... Normal [facility] Comment on above: Result Comment: Elec tronically Signed By: Nicolás MINA, MICROBIOLOGY PROFESSOR-Jewell LUCIANO\.br\Date and Time Signed: 10/09/23 19:19 EDT\.br\Electronically Co-Signed By: Joann Mullins\.br\Date and Time Co-Signed: 10/09/23 13:48 EDT ED Note-Physicianon 10-07-19 ED Note-Physician ED Note-Physician Basic Information Time Seen: Charlie Bowman PA-C 10/06/2023 19:26 Chief Complaint pt states back [...] and symmetry. No ataxia with finger-nose or [id number]. Intact sensation of bilateral upper and lower [...] naproxen. Did provide her with Dr. Perea community living specialist for further evaluation of her spondylolisthesis. [...] day(s), # 14 cap(s), Refills(s) 0, Pharmacy: [facility], 165.1, cm, 10/06/23 19:19:00 EDT, Height/Length [...] Stop date (more content not included)... Normal [facility] Comment on above: Result Comment: [...] mGy = na DAP = na Normal [facility] XR Spine Lumbosacral 2 or 3 [...] mGy = na DAP = na Normal [facility] BMPon 10-06-2023 Creatinine [Mass/Vol] 0.8 mg/dL Normal 0.5-1.3 [facility] Comment on above: Performed By: #### 2 [id number] #### [facility] [address] [place] [address] Glucose [Mass/Vol] 82 mg/dL Normal 55-199 [facility] Comment on above: Performed By: #### 2 [id number] #### [facility] [address] [place] [address] Urea nitrogen [Mass/Vol] 10 mg/dL Normal 5-21 [facility] Comment on above: Performed By: #### 2 [id number] #### [facility] [address] [place] [address] Urea nitrogen/Creatinine [Mass ratio] 12 No Units Normal 10-20 [facility] Comment on above: Performed By: #### 2 [id number] #### [facility] [address] [place] [address] Anion gap [Moles/Vol] 11 mmol/L Normal 6-16 [facility] Comment on above: Performed By: #### 2 [id number] #### [facility] [address] [place] [address] Calcium [Mass/Vol] 9.7 mg/dL Normal 8.9-11.1 [facility] Comment on above: Performed By: #### 2 [id number] #### [facility] [address] [place] [address] Chloride [Moles/Vol] 106 mmol/L Normal 101-111 [facility] Comment on above: Performed By: #### 2 [id number] #### [facility] [address] [place] [address] CO2 [Moles/Vol] 25 mmol/L Normal 21-31 [facility] Comment on above: Performed By: #### 2 [id number] #### [facility] [address] [place] [address] Potassium [Moles/Vol] 3.8 mmol/L Normal 3.5-5.3 [facility] Comment on above: Performed By: #### 2 [id number] #### [facility] [address] [place] [address] Sodium [Moles/Vol] 138 mmol/L Normal 135-145 [facility] Comment on above: Performed By: #### 2 [id number] #### [facility] [address] [place] [address] CBC w/ Auto Diffon 4 Basophils/100 WBC (Bld) 0.7 % Normal 0.0-2.0 [facility] Comment on above: Performed By: #### 2 [id number] #### [facility] [address] [place] [address] Basophils/Leukocytes Auto (Bld) [Pure # fraction] 0.0 E9/L Normal 0.0-0.2 [facility] Comment on above: Performed By: #### 2 [id number] #### [facility]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 [address] [place] [address] Glucose [Mass/Vol] 89 mg/dL Normal 55-199 [facility] Comment on above: Performed By: #### 2 893214, 01793972, 6592698 #### [facility] [address] [place] [address] Potassium [Moles/Vol] 3.2 mmol/L Low 3.5-5.3 [facility] Comment on above: Performed By: #### 2 846590, 93072490, 8413729 #### [facility] [address] [place] [address] Sodium [Moles/Vol] 142 mmol/L Normal 135-145 [facility] Comment on above: Performed By: #### 2 799488, 44418790, 3268656 #### [facility] [address] [place] [address] Urea nitrogen [Mass/Vol] 6 mg/dL Normal 5-21 [facility] Comment on above: Performed By: #### 2 761449, 44298363, 0417831 #### [facility] [address] [place] [address] Anion gap [Moles/Vol] 12 mmol/L Normal 6-16 [facility] Comment on above: Performed By: #### 2 741593, 2292657, 0231892, 33208914, 1080268 ####[facility] [address] [place] [address] BUN/Creat Ratio 10 No Units Normal 10-20 [facility] Comment on above: Performed By: #### 2 750125, 3184515, 2752724, 22899434, 5776368 ####[facility] [address] [place] [address] Calcium [Mass/Vol] 9.1 mg/dL Normal 8.9-11.1 [facility] Comment on above: Performed By: #### 2 196739, 3420197, 1892139, 00069674, 1716419 ####[facility] [address] [place] [address] Chloride [Moles/Vol] 107 mmol/L Normal 101-111 [facility] Comment on above: Performed By: #### 2 379507, 5496529, 3224218, 57305051, 9309834 ####[facility] [address] [facility] [place] [address] CO2 [Moles/Vol] 26 mmol/L Normal 21-31 [facility] Comment on above: Performed By: #### 2 937073, 2344694, 8707812, 71368445, 8760793 ####[facility] [address] [place] [address] Creatinine [Mass/Vol] 0.7 mg/dL Normal 0.5-1.3 [facility] Comment on above: Performed By: #### 2 663246, 8138033, 3476807, 77448804, 3697976 ####[facility] [address] [facility] [place] [address] Glucose [Mass/Vol] 112 mg/dL Normal 55-199 [facility] Comment on above: Performed By: #### 2 055626, 3789236, 9337012, 82691920, 5164765 ####[facility] [address] [place] [address] Potassium [Moles/Vol] 3.7 mmol/L Normal 3.5-5.3 [facility] Comment on above: Performed By: #### 2 843042, 6044977, 9431851, 76712896, 6204245 ####[facility] [address] [place] [address] Sodium [Moles/Vol] 141 mmol/L Normal 135-145 [facility] Comment on above: Performed By: #### 2 552171, 2911250, 3878886, 63378885, 7063182 ####[facility] [address] [place] [address] Urea nitrogen [Mass/Vol] 7 mg/dL Normal 5-21 [facility] Comment on above: Performed By: #### 2 367321, 1973024, 2748490, 68203252, 9092244 ####[facility] [address] [place] [address] Blood Bank ID#on 05-09-2023 BBID# [id number] Invalid Interpretation Code [facility] Comment on above: Performed By: #### 2 840941, 23963769, 7242970 #### [facility] [address] [place] [address] CBC w/ Auto Diffon 4 Anisocytosis Ql (Bld) PRESENT Invalid Interpretation Code [facility] Comment on above: Performed By: #### 2 191927, 52815807, 2098722 #### [facility] [address] [place] [address] Hypochromasia PRESENT Invalid Interpretation Code [facility] Comment on above: Performed By: #### 2 472325, 80600178, 6264060 #### [facility] [address] [place] [address] Microcyte PRESENT Invalid Interpretation Code [facility] Comment on above: Performed By: #### 2 855665, 50053311, 2214960 #### [facility] [address] [place] [address] Basophil Absolute 0.0 E9/L Normal 0.0-0.2 [facility] Comment on above: Performed By: #### 2 200398, 07469273, 3303242 #### [facility] [address] [place] [address] Basophils/100 WBC (Bld) 0.1 % Normal 0.0-2.0 [facility] Comment on above: Performed By: #### 2 609503, 69089134, 5117591 #### [facility] [address] [place] [address] Eos Absolute 0.0 E9/L Normal 0.0-0.5 [facility] Comment on above: Performed By: #### 2 150361, 78569461, 2154394 #### [facility] [address] [place] [address] Eosinophils/100 WBC (Bld) 0.7 % Normal 0.0-8.0 [facility] Comment on above: Performed By: #### 2 134288, 56959752, 2023195 #### [facility] [address] [place] [address] Lymph Absolute 2.1 E9/L Normal 1.0-4.0 [facility] Comment on above: Performed By: #### 2 979175, 25454341, 6482076 #### [facility] [address] [place] [address] Lymphocytes/100 WBC (Bld) 36.6 % Normal 14.0-50.0 [facility] Comment on above: Performed By: #### 2 334425, 08399694, 1981950 #### [facility] [address] [place] [address] Hooker Absolute 0.7 E9/L Normal 0.2-1.[address] [facility] Comment on above: Performed By: #### 2 479991, 71481552, 6437269 #### [facility] [address] [place] [address] Monocytes/100 WBC (Bld) 11.5 % Normal 4.0-14.0 [facility] Comment on above: Performed By: #### 2 233920, 37732151, 8743498 #### [facility] [address] [place] [address] Neutro Absolute 2.9 E9/L Normal 2.0-7.5 [facility] Comment on above: Performed By: #### 2 801422, 06230388, 1834679 #### [facility] [address] [place] [address] Neutro Auto 51.1 % Normal 36.0-75.0 [facility] Comment on above: Performed By: #### 2 487886, 19618084, 7514913 #### [facility] [address] [place] [address] Erythrocyte distribution width (RBC) [Ratio] 16.8 % High 10.9-14.2 [facility] Comment on above: Performed By: #### 2 541844, 54370802, 0584897 #### [facility] [address] [place] [address] Hematocrit (Bld) [Volume fraction] 28.0 % Low 34.0-46.0 [facility] Comment on above: Performed By: #### 2 976288, 63279998, 3211702 #### [facility] [address] [place] [address] Hemoglobin (Bld) [Mass/Vol] 8.6 g/dL Low 12.0-16.0 [facility] Comment on above: Performed By: #### 2 475137, 52048487, 7481763 #### [facility] [address] [place] [address] MCH (RBC) [Entitic mass] 22.9 pg Low 27.0-34.0 [facility] Comment on above: Performed By: #### 2 995473, 86849952, 6232340 #### [facility] [address] [place] [address] MCHC (RBC) [Mass/Vol] 31.4 g/dL Normal 31.4-36.0 [facility] Comment on above: Performed By: #### 2 093317, 20227878, 4164877 #### [facility] [address] [place] [address] MCV (RBC) [Entitic vol] 72.8 fL Low 80.0-100.0 [facility] Comment on above: Performed By: #### 2 245556, 44261937, 0180997 #### [facility] [address] [place] [address] Platelet 201.0 E9/L Normal 150.0-500.0 [facility] Comment on above: Performed By: #### 2 677976, 48515782, 0408145 #### [facility] [address] [place] [address] Platelet mean volume (Bld) [Entitic vol] 8.8 fL Normal 6.4-10.8 [facility] Comment on above: Performed By: #### 2 444630, 99301302, 1669355 #### [facility] [address] [place] [address] RBC 3.8 E12/L Low 4.3-5.9 [facility] Comment on above: Performed By: #### 2 303714, 51898426, 7291320 #### [facility] [address] [place] [address] WBC 5.7 E9/L Normal 4.0-11.0 [facility] Comment on above: Performed By: #### 2 055783, 08863739, 1922988 #### [facility] [address] [place] [address] Anisocytosis Ql (Bld) PRESENT Invalid Interpretation Code [facility] Comment on above: Performed By: #### 2 228930, 3205133, 3977247, 14728890, 9664793 #### [facility] [address] [place] [address] Hypochromasia PRESENT Invalid Interpretation Code [facility] Comment on above: Performed By: #### 2 740184, 5859373, 2594940, 74707306, 7643648 #### [facility] [address] [place] [address] Microcyte PRESENT Invalid Interpretation Code [facility] Comment on above: Performed By: #### 2 917728, 4728534, 9867457, 22772485, 7904267 #### [facility] [address] [place] [address] RBC morphology finding Nom (Bld) SEE MORPHOLOGY Invalid Interpretation Code [facility] Comment on above: Performed By: #### 2 146254, 3455027, 6032035, 11010082, 6932018 #### [facility] [address] [place] [address] Basophil Absolute 0.0 E9/L Normal 0.0-0.2 [facility] Comment on above: Performed By: #### 2 092337, 1298249, 9682944, 76762188, 8091381 #### [facility] [address] [place] [address] Basophils/100 WBC (Bld) 0.1 % Normal 0.0-2.0 F [facility] Comment on above: Performed By: #### 2 394880, 7615046, 8880468, 36201334, 8698607 #### [facility] [address] [place] [address] Eos Absolute 0.0 E9/L Normal 0.0-0.5 [facility] Comment on above: Performed By: #### 2 387779, 4416231, 9334054, 85383671, 6953959 #### [facility] [address] [place] [address] Eosinophils/100 WBC (Bld) 0.2 % Normal 0.0-8.0 [facility] Comment on above: Performed By: #### 2 453847, 3378607, 8516381, 55480082, 3953042 #### [facility] [address] [place] [address] Erythrocyte distribution width (RBC) [Ratio] 16.6 % High 10.9-14.2 [facility] Comment on above: Performed By: #### 2 327319, 2985506, 8094134, 44832211, 5115333 #### [facility] [address] [place] [address] Hematocrit (Bld) [Volume fraction] 32.0 % Low 34.0-46.0 [facility] Comment on above: Performed By: #### 2 023989, 5380937, 6107472, 05320856, 2824521 #### [facility] [address] [place] [address] Hemoglobin (Bld) [Mass/Vol] 9.9 g/dL Low 12.0-16.0 [facility] Comment on above: Performed By: #### 2 401369, 0749120, 8297494, 31315015, 6961514 #### [facility] [address] [place] [address] Lymph Absolute 1.3 E9/L Normal 1.0-4.0 [facility] Comment on above: Performed By: #### 2 974631, 2939853, 3094672, 94071356, 7533805 #### [facility] [address] [place] [address] Lymphocytes/100 WBC (Bld) 16.1 % Normal 14.0-50.0 [facility] Comment on above: Performed By: #### 2 449633, 3561890, 9977265, 18002313, 5545554 #### [facility] [address] [place] [address] MCH (RBC) [Entitic mass] 22.8 pg Low 27.0-34.0 [facility] Comment on above: Performed By: #### 2 511463, 6134739, 2703031, 78305025, 4592906 #### [facility] [address] [place] [address] MCHC (RBC) [Mass/Vol] 31.4 g/dL Normal 31.4-36.0 [facility] Comment on above: Performed By: #### 2 699597, 6608006, 3233329, 33784641, 9850068 #### [facility] [address] [place] [address] MCV (RBC) [Entitic vol] 72.7 fL Low 80.0-100.0 F [facility] Comment on above: Performed By: #### 2 625706, 2773431, 0360917, 51480330, 9108829 #### [facility] [address] [place] [address] Hooker Absolute 0.6 E9/L Normal 0.2-1.[address] [facility] Comment on above: Performed By: #### 2 462205, 9611278, 5963553, 58647640, 4554411 #### [facility] [address] [place] [address] Monocytes/100 WBC (Bld) 6.8 % Normal 4.0-14.0 F [facility] Comment on above: Performed By: #### 2 738579, 3089768, 9101263, 25480160, 3498857 #### [facility] [address] [place] [address] Neutro Absolute 6.2 E9/L Normal 2.0-7.5 [facility] Comment on above: Performed By: #### 2 660230, 7277210, 2632417, 40820541, 3863425 #### [facility] [address] [place] [address] Neutro Auto 76.8 % High 36.0-75.0 [facility] Comment on above: Performed By: #### 2 040137, 5750577, 3662772, 87181825, 9056133 #### [facility] [address] [place] [address] Platelet 247.0 E9/L Normal 150.0-500.0 [facility] Comment on above: Performed By: #### 2 484784, 0827838, 7130856, 75411828, 4228288 #### [facility] [address] [place] [address] Platelet mean volume (Bld) [Entitic vol] 8.8 fL Normal 6.4-10.8 [facility] Comment on above: Performed By: #### 2 330291, 8957837, 3122824, 30948851, 9022919 #### [facility] [address] [place] [address] RBC 4.3 E12/L Normal 4.3-5.9 [facility] Comment on above: Performed By: #### 2 239048, 4885436, 6889121, 71399776, 4843445 #### [facility] [address] [place] [address] WBC 8.1 E9/L Normal 4.0-11.0 [facility] Comment on above: Performed By: #### 2 047047, 3200300, 8733505, 77491774, 5877498 #### [facility] [address] [place] [address] CHEMISTRYOrdered By: SYSTEM SYSTEM on 05-09-2023 Anion [...] 91 mg/dL Normal 55 - 99 mg/dL [facility] Subsection Comment on above: Result Comment: Neeta harris RN/MD POC Device SN [id number] 1 Invalid Interpretation Code [facility] Subsection POC User ID [id number] 1 Invalid Interpretation Code [facility] Subsection POC Username MARQUITA SILVEIRA Invalid Interpretation Code [facility] Subsection CT Abdomen/Pelvis w/ Contras ton 05-09-2023 CT Abdomen/Pelvis w/ Contrast Exam Date/Time: 05/09/2023 00:01 EST Reason for Exam: RLQ abdominal pain;Other (please specify) Report [facility] [phone] IMPRESSION: Findings concerning for early acute appendicitis [...] REPORT Dictated: 05/09/2023 8:39 am Bhavesh Hooper MD. Signed (Electronic Signature): 05/09/2023 8:39 am Signed by: Bhavesh Hooper MD Transcribed by: ANCELMO Technologist: KRYSTAL Technical Comments GFR (mL/min/1/73m2) n/a-age Contrast: Isovue 300 Contrast amount in ml's: 100 Normal [facility] Capillary Glucose POCon 04-20 Glucose [Mass/Vol] 91 mg/dL Normal 55-99 [facility] Comment on above: Result Comment: Neeta harris RN/ Performed By: #### 1 6850674, 3131862815, 178808017, [id number] #### [facility] [address] [place] [address] Consent for Procedure/Surger yon 05-09-2023 Consent for Procedure/Surgery [id number] #1.00TIFF Normal [facility] Discharge Note-Nursingon Discharge Note-Nursing FABRIZIO CARBALLO :2000 [...] Pending Diagnostic Test Results Biopsy/pathology Pharmacy Information [facility] Discharge Instructions no lifting heavier than 15 lbs for 3 weeks. Tylenol and motrin fo rmild to moderate pain, oxycodone for severe pain. New Follow Up Appointments after Discharge Follow Up with Jewell Monzon When: Within 7 to 10 days, only if needed Where: [address] [place] [address] [place] [address] [phone] Business (1) Follow Up with trauma clinic When: Within 1 to 2 weeks Comments: Call to schedule/confirm followup appointment. May be telephone visit. Where: [address] [place] [address] 3, second floor, [address] [place] [address]- [phone] Medications What How Much When Why Instructions Next Dose New acetaminophen (acetaminophen 325 mg Tab) 2 Tablets By Mouth Every 4 hours as needed for Pain 1-3 start New docusate (Colace 100 mg Cap) 1 Capsules By Mouth 2 times a day Duration: 10 Days Pickup at [facility] start New oxycodone (oxyCODONE 5 mg Tab) 1 Tablets By Mouth Every 6 hours as needed for as needed for pain Acute appendicitis Duration: 3 Days Pickup at [facility] 05/10 1:00am Pharmacy Information [facility]: [address] [place] [phone] What How Much When Comments Stop Taking [...] E9/L (05/09/23 06:28:00) Glucose Lvl: 89 mg/dL (05/09/23:28:00) RBC: 3.8 E12/L Low (05/09/23:28:00) BUN: 6 mg/dL (05/09/23:28:00) HGB: 8.6 gm/dL Low (05/09/23::00) Creatinine: 0.6 mg/dL (05/09/23:28:00) Hct: 28 % Low (05/09/23:28:00) BUN/Creat Ratio: 10 (05/09/23:28:00) MCV: 72.8 fL Low (05/09/23:28:00) Sodium Lvl: 142 mmol/L (05/09/23:28:00) MCH: 22.9 pg Low (05/09/23:28:00) Potassium Lvl: 3.2 mmol/L Low (05/09/23:28:00) MCHC: 31.4 gm/dL (05/09/23:28:00) Chloride: 110 mmol/L (05/09/23:28:00) RDW: 16.8 % High (05/09/23:28:00) CO2: 25 mmol/L (05/09/23:28:00) Platelet: 201 E9/L (05/09/23 06:28:00) AGAP: 10 mEq/L (05/09/23:28:00) MPV: 8.8 fL (02/21/24 06:28:00) Calcium Lvl: 8.2 mg/dL Low (05/09/23 [...] to the (more content not included)... Normal [facility] ED Clinical Summaryon 2023 ED Clinical Summary [place] [address] ED Clinical Summary Person Information Name: FABRIZIO CARBALLO [facility] Age: 22 Years : 2000 Sex: Female Language: Comoran PCP: Nicolás MINA, MICROBIOLOGY PROFESSOR-Jewell LUCIANO Marital Status: Single Visit Id: Visit Reason: Abdominal pain; CONSTIPATION, ABD PAIN Speciality: Acuity: 3 Enc Type: Observation Med Service: Emergency Arrival: 05/08/2023 22:59:07 Discharge: LOS: 000 02:34 Checkin: 05/08/2023 22:59:07 Checkout: 05/09/2023 01:33:17 [facility]po [facility] EVENTS: Event Name Event Status Request [...] Meds Admin Request 05/09/2023 00:50:36 ADDRESS: [address] [place] [phone] [facility] DOC NOTES: MEDICAL INFORMATION: Prescriptions Given: Medications to Continue with No Changes Other Medications brompheniramine/dext romethorphan/PSE (Bromfed DM oral syrup) 5 Milliliter By Mouth 4 times a day as needed for cough and congestion. Refills: 0. PATIENT EDUCATION INFORMATION: Instructions: Follow up: DIAGNOSIS: Acute appendicitis Normal [facility] ED Note-Physicianon 05-09-19 ED Note-Physician Basic [...] and Complexity of Problems Differential Diagnosis: [] [facility] Data External documents reviewed: N/A My [...] Regular exercis (more content not included)... Normal [facility] Comment on above: Result Comment: Elec tronically Signed By: Andrea Faustin DO\.br\Date and Time Signed: 05/09/23 00:39 EST ED Patient Education Noteon 05-09-2023 ED Patient Education Note Normal [facility] ED Patient Summaryon 024 ED Patient Summary [place] [id number] Patient Discharge Instructions Person Information Name: FABRIZIO CARBALLO Age: 22 Years Arrival Date: 05/08/2023 22:59:07 Discharge Diagnosis: Acute appendicitis Primary Care Physician: Nicolás MSN, MICROBIOLOGY PROFESSOR-VEGETABLE PICKER, Jewell [place] Provider Information Primary Provider: Andrea Faustin DO Advanced Office Machine Mechanic:None The exam and treatment you received in the Emergency Department were for an urgent problem and are not intended as complete care. It is important that you follow up with a doctor, nurse practitioner, or physician?s butcher's assistant for ongoing care. If your symptoms [...] opioids can be used to help relieve ifoqvkjd-wc-dcesnj pain and are often prescribed following a [...] be struggling with addiction, tell your health pet caregiver and ask for guidance or call [facility]?S National Helpline at 4-797-940-DBQL. a Source: [place] Department of Health and Human Services/Center for Disease Control & Prevention [facility] Medications Given: Medication Dose Route (more content not included)... Normal [facility] HEMATOLOGYOrdered By: Noble Jones on 05-09-2023 [...] Low 80.0 - 100.0 fL Remisol Heme Hooker Absolute 0.7 E9/L Normal 0.2 - 1.0 [...] 05-09-2023 Albumin [Mass/Vol] 3.9 g/dL Normal 3.3-5.0 [facility] Comment on above: Performed By: #### 2 103910, 0732804, 3282703, 31706335, 8944997 ####[facility] [address] [place] [address] Albumin/Globulin [Mass ratio] 1.2 {ratio} Normal 1.1-2.2 [facility] Comment on above: Performed By: #### 2 828592, 1819989, 0294176, 60547627, 3582146 ####[facility] [address] [place] [address] Alk Phos 82 Int._Unit/L Normal 21-98 [facility] Comment on above: Performed By: #### 2 944423, 3459929, 4650102, 77768083, 9326046 ####[facility] [address] [place] [address] ALT 63 Int._Unit/L High 6-46 [facility] Comment on above: Performed By: #### 2 728335, 2651005, 9999079, 16588914, 1752417 ####[facility] [address] [place] [address] AST 36 Int._Unit/L Normal 5-43 [facility] Comment on above: Performed By: #### 2 121770, 5146074, 0587402, 12437958, 8869557 ####[facility] [address] [place] [address] Bili Direct 0.1 mg/dL Normal 0.0-0.4 [facility] Comment on above: Performed By: #### 2 500991, 6949176, 1276646, 10991727, 0878904 ####[facility] [address] [place] [address] Bili Indirect 0.2 mg/dL Normal 0.1-0.[address] [facility] Comment on above: Performed By: #### 2 176247, 9794793, 6309926, 38169979, 7181778 ####[address] [address] Bili Total 0.3 mg/dL Normal 0.0-1.1 [facility] Comment on above: Performed By: #### 2 304224, 8063941, 5993403, 81013549, 4849196 ####[facility] [address] [place] [address] Globulin (S) [Mass/Vol] 3.2 g/dL Normal 1.4-4.0 [facility] Comment on above: Performed By: #### 2 258452, 8218355, 2500766, 07685178, 4377561 ####[facility] [address] [place] [address] Protein [Mass/Vol] 7.1 g/dL Normal 6.0-7.8 [facility] Comment on above: Performed By: #### 2 140373, 5930132, 3492173, 27320291, 9103474 ####[facility] [address] [place] 6[address] Inpatient Clinical Summaryon 05-09-2023 Inpatient Clinical Summary [address] [address] Clinical Summary Person Information: Name: FABRIZIO CARBALLO Age: 22 Years : 2000 Sex: Female PCP: Nicolás MSN, MICROBIOLOGY PROFESSOR-VEGETABLE PICKER, Jewell [place]cala Marital Status: Single Race: White Ethnicity: Non- or Language: Comoran Visit Id: Visit Reason: Abdominal pain; CONSTIPATION, ABD PAIN Speciality: Acuity: Enc Type: Observation Med Service: Medical Arrival: 05/08/2023 22:59:07 Discharge: Dispo Type: Admitted as IP to this Hosp Address: [address] [place] [phone] Provider Notes: Diagnosis: Acute appendicitis Problems Active [...] Physician: Follow up: With: Address: When: Jewell Nicolás [address] [place] [phone] [facility] (1) Within 7 to 10 days, only if needed With: Address: When: trauma clinic [facility] [place] [address], second floor, [address] [place] [address] Within 1 to 2 weeks Comments: Call to schedule/confirm followup appointment. May be telephone visit. Patient Education Information: Appendicitis, Adult, Mzqh-qu-Dkyv; Laparoscopic Appendectomy, Adult, Care After Normal [facility] Inpatient Patient Summaryon 05-09-2023 Inpatient Patient Summary [address] [address] Patient Discharge Instructions PERSON INFORMATION Name: FABRIZIO CARBALLO Date of : 2000 Current Date: 05/09/2023 10:47:46 PHYSICIANS Admitting Physician: Jamie Steven MD Primary Care Physician: Nicolás MSN, MICROBIOLOGY PROFESSOR-VEGETABLE PICKERJewell PCP Phone Number: [phone] Comment: Discharge Diagnosis: Acute appendicitis Condition at [...] Biopsy/pathology Follow up: With: Address: When: Jewell Nicol[address] [place] [phone] [facility] (1) Within 7 to 10 days, only if needed With: Address: When: trauma clinic [address] [place] [address] 3, second floor, [address] [place] [address] Within 1 to 2 weeks Comments: Call [...] OCCURRED DURING YOUR HOSPITAL STAY New Medications [facility], [address] [facility] [address] [place] [phone], [phone] docusate (Colace 100 mg Cap) 1 Capsules [...] 3 Days. Refills: 0. Pharmacy Information: [facility] [place] Comment: PATIENT EDUCATION INFORMATION Instructions: Appendicitis, [...] is tr (more content not included)... Normal [facility] Insurance Correspondence Off iceon 05-09-2023 Insurance Correspondence Office [id number] #1.00TIFF [facility] Interdisciplinary Note - Chin e Manageron 05-09-2023 Interdisciplinary Note - Freezer Machine Operator Pt is off the floor for Lap Appy. ANt dc 05/09 or 05/10. CRM to follow. Normal [facility] Comment on above: Result Comment: Elec tronically Signed By: Monica Vazquez\.br\Date and Time Signed: 05/09/23 09:48 EST Lipase Levelon 05-09-2023 Lipase Lvl 19 unit/L Normal 13-58 [facility] Comment on above: Performed By: #### 2 589758, 7894376, 1005569, 65628828, 6662260 ####[facility] [address] [place] [address] Main OR PACU I Recordon 04-20 Main OR PACU I Record PACU Phase I Document Type FT Summary Primary Physician: Jamie Steven MD Finalized Date/Time: 05/09/23 10:42:50 Pt. Name: FABRIZIO CARBALLO/Sex: 2000 Female Med Rec #: [id number] Physician: Jamie Steven MD Financial #: [id number] Pt. Type: O Room/Bed: [place] [address] Admit/Disch: 05/08/23 22:59:07 - Institution: Case Times [...] By: Brittny Espino RN 05/09/23 10:42 Normal [facility] Main OR Preoperative Recordo n 05-09-2023 Main OR Preoperative Record PreOp Document Type FT Summary Primary Physician: Jamie Steven MD Finalized Date/Time: 05/09/23 09:03:34 Pt. Name: CARBALLOFABRIZIO/Sex: 2000 Female Med Rec #: [id number] Physician: Jamie Steven MD Financial #: [id number] Pt. Type: O Room/Bed: [facility]06/17 Admit/Disch: 05/08/23 22:59:07 - Institution: Case Times [...] By: Monique Yarbrough RN 05/09/23 09:03 Normal [facility] Monitor Recordon 05-09-2023 Monitor Record [id number] 5#1.00TIFF Normal [facility] Monitor Record [id number] 0#1.00TIFF Normal [facility] RAD - Preliminary Cat Scan R eporton 05-09-2023 RAD - Preliminary Cat Scan Report [id number] 1#1.00TIFF Normal [facility] UA With Cult Reflexon 2023 Bilirubin Ql (U) Negative Normal Negative [facility] Comment on above: Performed By: #### 2 634320, 40869708, 2767497 #### [facility] [address] [place] [address] Clarity (U) CLEAR Normal Clear [facility] Comment on above: Performed By: #### 2 916235, 03603485, 4156828 #### [facility] [address] [place] [address] Color (U) YELLOW Normal Yellow [facility] Comment on above: Performed By: #### 2 206179, 52371487, 0881550 #### [facility] [address] [place] [address] Epithelial cells.squamous LM.HPF (Urine sed) [#/Area] 0-2 Normal 0-[address] [facility] Comment on above: Performed By: #### 2 749321, 04926083, 6735430 #### [facility] [address] [place] [address] Glucose Test strip (U) [Mass/Vol] Negative Normal Negative [facility] Comment on above: Performed By: #### 2 094732, 06233513, 7758441 #### [facility] [address] [place] [address] Hemoglobin Ql (U) Negative Normal Negative [facility] Comment on above: Performed By: #### 2 388427, 38626997, 6807438 #### [facility] [address] [place] [address] Ketones (U) [Mass/Vol] Negative Normal Negative [facility] Comment on above: Performed By: #### 2 448196, 30857076, 0321208 #### [facility] [address] [place] [address] [place].plasma/[place]. RBC (Bld) [Mass ratio] 0-3 Normal 0-3 [facility] Comment on above: Performed By: #### 2 393806, 43204522, 2267100 #### [facility] [address] [place] [address] Nitrite Ql (U) Negative Normal Negative [facility] Comment on above: Performed By: #### 2 900511, 84854789, 4184140 #### [facility] [address] [place] [address] pH (U) 7.0 [pH] Invalid Interpretation Code 5.0-9.0 [facility] Comment on above: Performed By: #### 2 686350, 09629365, 1069644 #### [facility] [address] [place] [address] Protein (U) [Mass/Vol] Negative Normal Negative [facility] Comment on above: Performed By: #### 2 913693, 25955223, 8199129 #### [facility] [address] [place] [address] Specific gravity (U) [Rel density] 1.015 Invalid Interpretation Code 1.005-1.030 [facility] Comment on above: Performed By: #### 2 991334, 82735870, 7344423 #### [facility] [address] [place] [address] Type of Urine collection method Cerda Normal [facility] Comment on above: Performed By: #### 2 635879, 68410197, 9923976 #### [facility] [address] [place] [address] Urobilinogen Qn (U) 0.2 {Calderon'U}/dL Normal 0.0-1.0 [facility] Comment on above: Performed By: #### 2 096874, 62955183, 9270255 #### [facility] [address] [place] [address] WBC Auto Ql (U) Negative Normal Negative [facility] Comment on above: Performed By: #### 2 986417, 01496044, 7586888 #### [facility] [address] [place] [address] WBC LM.HPF (Urine sed) [#/Area] 0-5 Normal 0-5 [facility] Comment on above: Performed By: #### 2 120370, 88736096, 2248758 #### [facility] [address] [place] [address] URINALYSISOrdered By: Juan Taveras on 05-09-2023 Bilirubin [...] AM) Normal Negative [facility] UA Auto SS [place].plasma/[place]. RBC (Bld) [Mass ratio] 0-3 /HPF Normal [...] [facility] UA Auto SS Urobilinogen Qn (U) 0.7236797 {Calderon'U}/dL Normal 0.0 - 1.0 EU/dL [facility] UA Auto SS WBC Auto Ql (U) Negative (05/09/23 8:45 AM) Normal Negative [facility] UA Auto SS WBC LM.HPF (Urine sed) [#/Area] 0-5 /HPF Normal 0-5/HPF [facility] UA Auto SS eGFRon 05-09-2023 eGFR 128 mL/min/1.73 m2 Normal >=59 [facility] Comment on above: Order Comment: Order added by Discern Expert. Performed By: #### 2 138743, 67920330, 6156225 #### [facility] [address] [place] [address] eGFR 123 mL/min/1.73 m2 Normal >=59 [facility] Comment on above: Order Comment: Order added by Discern Expert. Performed By: #### 2 366638, 0044818, 1660996, 00582790, 0773182 ####[facility] [address] [place] [address] CHEMISTRYOrdered By: SYSTEM SYSTEM on 05-08-2023 Albumin [...] Treatmenton 04-20 Consent for Treatment [id number] #1.00TIFF Normal [facility] HEMATOLOGYOrdered By: Donte Kerr on 05-08-2023 [...] Low 80.0 - 100.0 fL Remisol Heme Hooker Absolute 0.6 E9/L Normal 0.2 - 1.0 [...] 05-08-2023 HCG.beta subunit (U) [Moles/Vol] Negative Normal [facility] Man Sero U BetaHcg Qualon 05-08-2023 HCG.beta subunit (U) [Moles/Vol] Negative Normal [facility] Comment on above: Performed By: #### 2 7015035, 68334060 ####[facility] [address] [place], [place] [address] UA With Cult Reflexon 2023 Bilirubin Ql (U) Negative Normal Negative [facility] Comment on above: Performed By: #### 2 6622562, 02287667 ####[facility] [address] [place] [address] Clarity (U) CLEAR Normal Clear [facility] Comment on above: Performed By: #### 2 1425239, 50414583 ####[facility] [address] [place], [place] [address] Color (U) YELLOW Normal Yellow [facility] Comment on above: Performed By: #### 2 [id number], [id number] ####[facility] [address] [place] [address] Epithelial cells.squamous LM.HPF (Urine sed) [#/Area] 0-2 Normal 0-[address] [facility] Comment on above: Performed By: #### 2 [id number], [id number] ####[facility] [address] [facility] [place] [address] Glucose Test strip (U) [Mass/Vol] Negative Normal Negative [facility] Comment on above: Performed By: #### 2 [id number], [id number] ####[facility] [address] [facility] [place] [address] Hemoglobin Ql (U) Negative Normal Negative [facility] Comment on above: Performed By: #### 2 [id number], [id number] ####[facility] [address] [facility] [place] [address] Ketones (U) [Mass/Vol] Negative Normal Negative [facility] Comment on above: Performed By: #### 2 [id number], [id number] ####[facility] [address] [place] [address] [place].plasma/[place]. RBC (Bld) [Mass ratio] 0-3 Normal 0-3 [facility] Comment on above: Performed By: #### 2 5428712, [id number] ####[facility] [address] [facility] [place] [address] Nitrite Ql (U) Negative Normal Negative [facility] Comment on above: Performed By: #### 2 2921021, [id number] ####[facility] [address] [facility] [place] [address] pH (U) 8.5 [pH] Invalid Interpretation Code 5.0-9.0 [facility] Comment on above: Performed By: #### 2 9333281, [id number] ####[facility] [address] [facility] [place] [address] Protein (U) [Mass/Vol] Negative Normal Negative [facility] Comment on above: Performed By: #### 2 8860696, [id number] ####[facility] [address] [facility] [place] [address] Specific gravity (U) [Rel density] 1.020 Invalid Interpretation Code 1.005-1.030 [facility] Comment on above: Performed By: #### 2 2109850, [id number] ####[facility] [address] [place] [address] Type of Urine collection method Clean Catch Normal [facility] Comment on above: Performed By: #### 2 9442527, [id number] ####[place] [id number] Urobilinogen Qn (U) 0.2 {Calderon'U}/dL Normal 0.0-1.0 [facility] Comment on above: Performed By: #### 2 9670298, [id number] ####[place] [address] WBC Auto Ql (U) Negative Normal Negative [facility] Comment on above: Performed By: #### 2 8060876, [id number] ####[place] [address] WBC LM.HPF (Urine sed) [#/Area] 0-5 Normal 0-5 [facility] Comment on above: Performed By: #### 2 [id number], [id number] ####[place] [address] URINALYSISOrdered By: Donte Kerr on 05-08-2023 Bilirubin Ql (U) Negative (05/08/23 11:23 PM) Normal Negative [facility] U[facility] Auto SS Clarity (U) Clear (05/08/23 11:23 PM) Normal Clear [facility] UA Auto SS Color (U) Yellow (05/08/23 11:23 PM) Normal Yellow [facility] UA Auto SS Epithelial cells.squamous LM.HPF (Urine sed) [#/Area] 0-2 /HPF Normal 0-2/HPF [facility] UA Aut o SS Glucose Test strip (U) [Mass/Vol] Negative (05/08/23 11:23 PM) Normal Negative [facility] UA Auto SS Hemoglobin Ql (U) Negative (05/08/23 11:23 PM) Normal Negative [facility] UA Auto SS Ketones (U) [Mass/Vol] Negative (05/08/23 11:23 PM) Normal Negative [facility] UA Auto SS [place].plasma/[place]. RBC (Bld) [Mass ratio] 0-3 /HPF Normal [...] [facility] UA Auto SS UA Spec Desc Clean Catch (05/08/23 11:23 PM) Normal [facility] UA Auto SS Urobilinogen Qn (U) 0.4264937 {Calderon'U}/dL Normal 0.0 - 1.0 EU/dL [facility] UA Auto SS WBC Auto Ql (U) Negative (05/08/23 11:23 PM) Normal Negative [facility] UA Auto SS WBC LM.HPF (Urine sed) [#/Area] 0-5 /HPF Normal 0-5/HPF [facility] UA Auto SS Consent for Treatmenton 04-19 Consent for Treatment [id number] #1.00TIFF Normal [facility] Discharge Instructionson Discharge Instructions [id number] 6#1.00TIFF Normal [facility] ED Clinical Summaryon 2023 ED Clinical Summary [place] [id number] ED Clinical Summary Person Information Name: FABRIZIO CARBALLO [facility] Age: 22 Years : 2000 Sex: Female Language: Comoran PCP: Nicolás MSN, MICROBIOLOGY PROFESSOR-VEGETABLE PICKER, Jewell Alcala Marital Status: Single Visit Id: [...] 09:22:45 05/02/2023 09:22:45 05/02/2023 09:22:45 ADDRESS: [address] [place] [phone] PHYS DOC NOTES: MEDICAL INFORMATION: Prescriptions Given: New Medications [facility] #03, [address] [place], [place] [id number], [phone] brompheniramine/dext romethorphan/PSE (Bromfed DM oral syrup) 5 [...] EDUCATION INFORMATION: Instructions: Upper Respiratory Infection, Adult, Ihdl-nv-Jubx Follow up: With: Address: When: Jewell Monzon [address] [place] [address] [place] [phone] Business (1) In 3 days 05/05/2023 Comments: Follow-up with your primary care provider in 3 to 5 days. If symptoms worsen, do not improve, or new symptoms arise please report back to emergency department for further evaluation. DIAGNOSIS: Acute URI Normal [facility] ED Note-Physicianon 05-02-19 ED Note-Physician [...] Number and Complexity of Problems Differential Diagnosis: [facility] Data External documents reviewed: [] My [...] Jewell Monzon In 3 days 05/05/2023 [place] [address] [phone] Business (1) Additional Instructions: Follow-up with your primary care provider in 3 to 5 days. If symptoms worsen, do not improve, or new symptoms arise please report back to emergency department for further evaluation. Patient Education Upper Respiratory Infection, Adult, Wpqk-ga-Tfgw Attestation Patient seen and evaluated by the physician butcher's assistant. Attending physician was present in the emergency department and supervised care. This visit was perfo (more content not included)... Normal [facility] Comment on above: Result Comment: [...] to help relieve symptoms, such as: ? Besa-txe-nsvpeqf cold medicines. ? Medicines to reduce coughing [...] other clear broths. General instructions ? Take ohzi-dee-zgjqnyf and prescription medicines only as told by [...] cannot use soap and water, use hand stripper and printer. ? Avoid touching your mouth, face, eyes, [...] get better within 7?10 days. ? Take lzso-slp-xcpfpqh and prescription medicines only as told by your doctor. This information is not intended to replace advice given to you by your health care (more content not included)... Normal [facility] ED Patient Summaryon 024 ED Patient Summary [place] [id number] Patient Discharge Instructions Person Information Name: FABRIZIO CARBALLO Age: 22 Years Arrival Date: 05/02/2023 08:16:05 Discharge Diagnosis: Acute URI Primary Care Physician: Nicolás MSN, MICROBIOLOGY PROFESSOR-VEGETABLE PICKER, Jewell Alcala Provider Information Primary Provider: Adolph Aleman M.D. Advanced Office Machine Mechanic:None The exam and treatment you received in the Emergency Department were for an urgent problem and are not intended as complete care. It is important that you follow up with a doctor, nurse practitioner, or physician?s butcher's assistant for ongoing care. If your symptoms [...] Follow-up Instructions: With: Address: When: Jewell Monzon [address] [place] [address] [place] [phone] [employer] (1) In 3 days 05/05/2023 Comments: Follow-up [...] Patient Education Materials: Upper Respiratory Infection, Adult, Qtbc-ib-Qtnm A MESSAGE TO ALL PATIENTS REGARDING OPIOIDS PRESCRIPTION OPIOIDS: WHAT YOU NEED TO KNOW Prescription opioids can be used to help relieve supacyam-dl-zgwsfp pain and are often prescribed following a [...] opioids a (more content not included)... Normal [facility] Grp A Strp PCRon 05-02-2023 Grp A Strp Intrl Ctrl Pass Normal [facility] Comment on above: Order Comment: Order Added on by Discern Rule. Performed By: #### 1 [id number], [id number], [id number], [id number] #### [facility] [address] [place] [address] S. pyogenes DNA ELYSIA+probe Ql (Throat) Negative Normal [facility] Comment on above: Order Comment: Order Added on by Discern Rule. Result Comment: Test ing performed using DNA amplification. Performed By: #### 1 [id number], [id number], [id number], [id number] #### [facility] [address] [place] [address] Influenza A&B Agon Influenzae A Ag Negative Normal Negative [facility] Comment on above: Performed By: #### 1 [id number], [id number], [id number], [id number] #### [facility] [address] [place] [address] Influenzae B Ag Negative Normal Negative [facility] Comment on above: Result Comment: Test sensitivity and specificity vary for age group, specimen type, antigen types, and prevalence of disease. Test results must be evaluated in conjunction with other clinical data available to the physician. Individuals who received nasally administered Influenza A vaccine may have positive test results up to 3 days after vaccination. Performed By: #### 1 [id number], [id number], [id number], [id number] #### [facility] [address] [place] [address] MICRO OTHER TESTSOrdered By: Mary Guerrero on 05-02-2023 Influenzae A Ag Negative (05/02/23 8:28 AM) Normal Negative [facility] Influenzae B Ag Negative 1 (05/02/23 8:28 AM) Normal Negative [facility] Comment on above: Interpretive Data: [...] NEG Ctl Pass (05/02/23 8:28 AM) Normal [facility] Rapid COV Int POS Ctl Pass (05/02/23 8:28 AM) Normal [facility] S. pyogenes Ag IA.rapid Ql (Throat) Negative (05/02/23 8:28 AM) Normal Negative [facility] SARS-CoV+SARS-CoV-2 (COVID-19) Ag IA.rapid Ql (Resp) Not Detected 2 (05/02/23 8:28 AM) Normal Not Detected [facility] Comment on above: Interpretive Data: Melissa aydee [employer] Veritor System for Rapid Detection of SARS-CoV-2 [...] Int NEG Ctl Pass Normal [facility] Comment on above: Performed By: #### 1 [id number], [id number], [id number], [id number] #### [facility] [address] [place] [address] Rapid COV Int POS Ctl Pass Normal [facility] Comment on above: Performed By: #### 1 [id number], [id number], [id number], [id number] #### [facility] [address] [place] [address] SARS-CoV+SARS-CoV-2 (COVID-19) Ag IA.rapid Ql (Resp) Not detected Normal Not Detected [facility] Comment on above: Result Comment: The [employer] System for Rapid Detection of SARS-CoV-2 is [...] or revoked sooner. Performed By: #### 1 [id number], [id number], [id number], [id number] #### [facility] [address] [place] [address] Rapid Strep w/rfxon 05-02-19 S. pyogenes Ag IA.rapid Ql (Throat) Negative Normal Negative [facility] Comment on above: Performed By: #### 1 5388435, [id number], [id number], [id number] #### [facility] [address] [place] [address] XR Chest 2 Viewson XR Chest 2 [...] mGy = . DAP = . Normal [facility] ED Note-Physicianon 04-24-19 ED Note-Physician Basic [...] and Complexity of Problems Differential Diagnosis: [] [facility] Data External documents reviewed: [] My [...] medications Follow-up With When Contact Information Jewell Rizviant In 3 days 04/26/[address] [place] [address] [phone] Business (1) Additional Instructions: Follow-up with your primary care provider in 3 to 5 days. If symptoms worsen, do not improve, or new symptoms arise please report back to emergency department for further evaluation. Patient Education Back Injury Prevention, Xnkd-rx-Aize Back Exercises, Aywq-hw-Sjlu Attestation Patient seen and evaluated by the physician butcher's assistant. Attending physician was present in the emergency department and supervised care. This visit was performed by both the physician and an APC. I performed all aspects of the MDM as documented. This report was transcribed using voice recognition software. Every effort was made to ensure accuracy, however, inadvertently computerized paste up worker mistakes may be present. Appropriate healthcare PPE [...] Abnormal c (more content not included)... Normal [facility] Comment on above: Result Comment: Elec tronically Signed By: Luciano CROSS, Carlos Nichole\.br\Date and Time Signed: 04/23/23 21:36 EST\.br\Electronically Co-Signed [...] MD Transcribed by: ANCELMO Technologist: SIMONE Lay [facility] CT Spine Cervical w/o Contra shanna 04-23-2023 CT Spine Cervical w/o Contrast Exam [...] MD Transcribed by: ANCELMO Technologist: SIMONE Lay [facility] Consent for Treatmenton Consent for Treatment [id number] #1.00TIFF [facility] Discharge Instructionson Discharge Instructions [id number] 45#1.00TIFF [facility] ED Clinical Summaryon 2023 ED Clinical Summary [place] [id number] ED Clinical Summary Person Information Name: FABRIZIO CARBALLO [facility] Age: 22 Years : 2000 Sex: Female Language: Comoran PCP: iNcolás MINA, MICROBIOLOGY PROFESSOR-Jewell LUCIANO Marital Status: Single Visit Id: Visit [...] 20:12:55 04/23/2023 20:12:55 04/23/2023 20:12:55 ADDRESS: [address] [place] [phone] PHYS DOC NOTES: MEDICAL INFORMATION: Prescriptions Given: [...] PATIENT EDUCATION INFORMATION: Instructions: Back Injury Prevention, Acvs-ws-Dyru; Back Exercises, Paqv-bq-Dkdn Follow up: With: Address: When: Jewell Monzon [address] [place] [address] [place] [phone] [employer] (1) In 3 days 04/26/2023 Comments: Follow-up with your primary care provider in 3 to 5 days. If symptoms worsen, do not improve, or new symptoms arise please report back to emergency department for further evaluation. DIAGNOSIS: Back spasm; Fall Normal [facility] ED Patient Education Noteon 04-23-2023 [...] the object as you can. Do not orange picker a heavy object that is far [...] objects on shelves at waist level. Put discharge planner objects on lower or higher shelves. ? Find ways to lower your stress (more content not included)... Normal [facility] ED Patient Summaryon 024 ED Patient Summary [place] [id number] Patient Discharge Instructions Person Information Name: FABRIZIO CARBALLO Age: 22 Years Arrival Date: 04/23/2023 19:11:15 Discharge Diagnosis: Back spasm; Fall Primary Care Physician: Nicolás MSN, MICROBIOLOGY PROFESSOR-VEGETABLE PICKER, Jewell Alcala Provider Information Primary Provider: Andrea Faustin DO Advanced Office Machine Mechanic:None The exam and treatment you received in the Emergency Department were for an urgent problem and are not intended as complete care. It is important that you follow up with a doctor, nurse practitioner, or physician?s butcher's assistant for ongoing care. If your symptoms [...] Follow-up Instructions: With: Address: When: Jewell Monzon [address] [place] [address] [address] [place] [phone] Business (1) In 3 days 04/26/2023 Comments: [...] provider. Patient Education Materials: Back Injury Prevention, Ymrw-fb-Vxti; Back Exercises, Kjle-iv-Xxaq A MESSAGE TO ALL PATIENTS REGARDING OPIOIDS PRESCRIPTION OPIOIDS: WHAT YOU NEED TO KNOW Prescription opioids can be used to help relieve zkbqgvfa-ic-bmfhab pain and are often prescribed following a [...] about t (more content not included)... Normal [facility] Patient Educationon 04-03-19 Patient Education Mental [...] pray, or go to a place of mandaen. ? Do some deep breathing. To do [...] or salt (sodium). General instructions ? Take nwjb-wqz-kkmhlus and prescription medicines only as told by [...] www.[facility].ne (more content not included)... Normal [facility] Patient Educationon 03-26-19 Patient Education Neurology [...] these instructions at home: Medicines ? Take zhvs-mhw-icquxoi and prescription medicines only as told by [...] and dr (more content not included)... Normal [facility] Discharge Instructionson Discharge Instructions [id number] #1.00TIFF Normal [facility] ED Clinical Summaryon 2022 ED Clinical Summary [place] [id number] ED Clinical Summary Person Information Name: FABRIZIO CARBALLO [place] Age: 22 Years : 2000 Sex: Female Language: Comoran PCP: Nicolás MINA, MICROBIOLOGY PROFESSOR-Jewell LUCIANO Marital Status: Single Visit Id: Visit [...] 00:33:08 02/03/2023 00:33:08 02/03/2023 00:33:08 ADDRESS: [address] [place] [phone] [facility] DOC NOTES: MEDICAL INFORMATION: Prescriptions Given: [...] Depression, Adult Follow up: With: Address: When: [facility] In 3 days 02/06/2023 Comments: Please follow-up with your primary care doctor in the [facility] for further evaluation and management. Please return to the ED for any new or worsening symptoms. With: Address: When: Jewell Monzon [address] [place] [phone] Business (1) In 3 days DIAGNOSIS: Depression Normal [facility] ED Note-Nursingon 02-03-2023 ED Note-Nursing Patient now done talking on the phone with Estrella from [facility]. Estrella has a safety plan set up for patient to reference when in need and will follow up with P on Sunday morning. Normal [facility] ED Note-Physicianon 02-04-20 ED Note-Physician [...] and Complexity of Problems Differential Diagnosis: [] [facility] Data External documents reviewed: [] My [...] prescription medications Follow-up With When Contact Information [facility] In 3 days 02/06/2023 EST Additional Instructions: Please follow-up with your primary care doctor in the [facility] for further evaluation and management. Please return to the ED for any new or worsening symptoms. Jewell Monzon In 3 days [address] [place] [phone] Business (1) Additional Instructions: Patient Education Managing [...] refills, N (more content not included)... Normal [facility] Comment on above: Result Comment: [...] pray, or go to a place of mandaen. ? Do some deep breathing. To do [...] or salt (sodium). General instructions ? Take apmm-bog-omcltdm and prescription medicines only as told by [...] www.[facility]health[facility].ne (more content not included)... Normal [facility] ED Patient Summaryon 023 ED Patient Summary [place] [id number] Patient Discharge Instructions Person Information Name: FABRIZIO CARBALLO Age: 22 Years Arrival Date: 02/02/2023 20:50:59 Discharge Diagnosis: Depression Primary Care Physician: Nicolás MINA, MICROBIOLOGY PROFESSOR-VEGETABLE PICKER, Jewell Alcala Provider Information Primary Provider: Earline Bond DO Advanced Office Machine Mechanic:None The exam and treatment you received in the Emergency Department were for an urgent problem and are not intended as complete care. It is important that you follow up with a doctor, nurse practitioner, or physician?s butcher's assistant for ongoing care. If your symptoms become worse or you do not improve as expected and you are unable to reach your usual health care provider, you should return to the Emergency Department. We are available 24 hours a day. FABRIZIO CARBALLO has been given the following list of patient education materials, prescriptions and follow-up instructions: Follow-up Instructions: With: Address: When: [facility] In 3 days 02/06/2023 Comments: Please follow-up with your primary care doctor in the [facility] for further evaluation and management. Please return to the ED for any new or worsening symptoms. With: Address: When: Jewell Monzon [address] [place] [phone] Business (1) In 3 days In the event that this physician does not participate in your insurance network, please consult with your insurance company to find a nearby participating provider. Patient Education Materials: Managing Depression, Adult A MESSAGE TO ALL PATIENTS REGARDING OPIOIDS PRESCRIPTION OPIOIDS: WHAT YOU NEED TO KNOW Prescription opioids can be used to help relieve cqxyyemi-gv-afchfc pain and are often prescribed following a [...] about t (more content not included)... Normal [facility] Outside Recordson 02-03-2023 Outside Records [id number] #1.00TIFF Normal [facility] Auto Diffon 02-02-2023 Basophils/100 WBC (Bld) 0.6 % Normal 0.0-2.0 F [facility] Comment on above: Order Comment: Order Added by Discern Expert. Performed By: #### 2 [id number], [id number], [id number] #### [facility] [address] [place] [address] Basophils/Leukocytes Auto (Bld) [Pure # fraction] 0.0 E9/L Normal 0.0-0.2 [facility] Comment on above: Order Comment: Order Added by Discern Expert. Performed By: #### 2 873984, [id number], [id number] #### [facility] [address] [place] [address] Eosinophils/100 WBC (Bld) 3.0 % Normal 0.0-8.0 [facility] Comment on above: Order Comment: Order Added by Discern Expert. Performed By: #### 2 365226, [id number], [id number] #### [facility] [address] [place] [address] Eosinophils/Leukocytes Auto (Bld) [Pure # fraction] 0.3 E9/L Normal 0.0-0.5 [facility] Comment on above: Order Comment: Order Added by Discern Expert. Performed By: #### 2 394828, [id number], [id number] #### [facility] [address] [place] [address] Lymphocytes/100 WBC (Bld) 33.8 % Normal 14.0-50.0 [facility] Comment on above: Order Comment: Order Added by Discern Expert. Performed By: #### 2 330953, [id number], [id number] #### [facility] [address] [place] [address] Lymphocytes/Leukocytes Auto (Bld) [Pure # fraction] 2.9 E9/L Normal 1.0-4.0 [facility] Comment on above: Order Comment: Order Added by Discern Expert. Performed By: #### 2 050100, [id number], [id number] #### [facility] [address] [place] [address] Monocytes/100 WBC (Bld) 8.3 % Normal 4.0-14.0 [facility] Comment on above: Order Comment: Order Added by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 [facility] [id number] PhD Nichole Goodwin INFECTIOUS DISEASE AB QUALITATIon 04-05-2021 Cytomegalovirus (CMV) Ab, IgG <0.60 Normal 0.00-0.59 [facility] Comment on above: Result Comment: Nega tive <0.60 Equivocal 0.60 - 0.69 Positive >0.69 Performed By: #### P DAQRS #### [facility] [address] [place] [address] Dr. Lissy Allen HSV 1 IgG, Type Spec 16.80 index Critically high 0.00-0.90 [facility] Comment on above: Result Comment: Nega tive <0.91 Equivocal 0.91 - 1.09 Positive >1.09 Note: Negative indicates no antibodies detected to HSV-1. Equivocal may suggest early infection. If clinically appropriate, retest at later date. Positive indicates antibodies detected to HSV-1. Performed By: #### P DAQRS #### [facility] [address] [place] [address] Dr. Lissy Allen HSV 2 IgG Type Spec 7.81 index Critically high 0.00-0.90 [facility] Comment on above: Result Comment: Nega tive <0.91 Equivocal 0.91 - 1.09 Positive >1.09 Note: Negative indicates no antibodies detected to HSV-2. Equivocal may suggest early infection. If clinically appropriate, retest at later date. Positive indicates antibodies detected to HSV-2. Performed By: #### P DAQRS #### [facility] [address] [place] [address] Dr. Lissy Allen Rubella Antibodies, IgG 1.62 index Normal Immune >0.99 [facility] Comment on above: Result Comment: Non- immune <0.90 Equivocal 0.90 - 0.99 Immune >0.99 Performed By: #### P DAQRS #### [facility] [address] [place] [address] Dr. Lissy Allen Toxoplasma gondii Ab,IgG,Qn <3.0 Normal 0.0-7.1 [facility] Comment on above: Result Comment: Nega tive <7.2 Equivocal 7.2 - 8.7 Positive >8.7 Performed By: #### P DAQRS #### [facility] [address] [place] [address] Dr. Lissy Allen INFECTIOUS DISEASE AB QUANTITATon 04-05-2021 Comment: Comment Normal [facility] Comment on above: Result Comment: It i s presumed the patient has not been infected with and is not undergoing an acute infection with Toxoplasma. If symptoms persist, submit a new specimen after three weeks. Performed By: #### P IDAQ #### [facility] [address] [place] [address] Dr. Lissy Allen Cytomegalovirus (CMV) Ab, IgM <30.0 Normal 0.0-29.9 [facility] Comment on above: Result Comment: Nega tive <30.0 Equivocal 30.0 - 34.9 Positive >34.9 A positive result is generally indicative of acute infection, reactivation or persistent IgM production. Performed By: #### P IDAQ #### [facility] [address] [place] [address] Dr. Lissy Allen HSV, IgM I/II Combination <0.91 Normal 0.00-0.90 [facility] Comment on above: Result Comment: Nega tive <0.91 Equivocal 0.91 - 1.09 Positive >1.09 Performed By: #### P IDAQ #### [facility] [address] [place] [address] Dr. Lissy Allen Rubella Antibodies, IgM <20.0 Normal 0.0-19.9 [facility] Comment on above: Result Comment: Nega tive <20.0 Equivocal 20.0 - 24.9 Positive >24.9 Performed By: #### P IDAQ #### [facility] [address] [address] [address] Lissy Allen Toxoplasma gondii Ab,IgM,Qn <3.0 Normal 0.0-7.9 [facility] Comment on above: Result Comment: Nega tive <8.0 Equivocal 8.0 - 9.9 Positive >9.9 Performed By: #### P IDAQ #### [facility] [address] [address] [address] Lissy Allen UA (CLEAN/CATCH) SCHOOL PSYCHOLOGY SPECIALIST/MICRO I F IND.on 04-05-2021 Bilirubin Ql (U) Negative Normal NEGATIVE [facility] Comment on above: Performed By: #### U ACSIND #### [facility] [address] [place] [address] Dr. Lissy Allen Clarity (U) CLEAR Normal CLEAR [facility] Comment on above: Performed By: #### U ACSIND #### [facility] [address] [place] [address] Dr. Lissy Allen Color (U) LT. YELLOW Normal YELLOW [facility] Comment on above: Performed By: #### U ACSIND #### [facility] [address] [place] [address] Dr. Lissy Allen Glucose Ql (U) Negative Normal NEGATIVE [facility] Comment on above: Performed By: #### U ACSIND #### [facility] [address] [place] [address] Dr. Lissy Allen Hemoglobin Ql (U) Negative Normal NEGATIVE [facility] Comment on above: Performed By: #### U ACSIND #### [facility] [address] [place] [address] Dr. Lissy Allen Ketones Ql (U) Negative Normal NEGATIVE [facility] Comment on above: Performed By: #### U ACSIND #### [facility] [address] [place] [address] Dr. Lissy Allen LEUKOCYTES Negative Normal NEGATIVE [facility] Comment on above: Performed By: #### U ACSIND #### [facility] [address] [place] [address] Dr. Lissy Allen Nitrite Ql (U) Negative Normal NEGATIVE [facility] Comment on above: Performed By: #### U ACSIND #### [facility] [address] [place] [address] Dr. Lissy Allen pH (U) 7.0 [pH] Normal 5-9 [facility] Comment on above: Performed By: #### U ACSIND #### [facility] [address] [place] [address] Dr. Lissy Allen SPEC GRAVITY 1.025 Normal 1.005-<=1.02 5 [facility] Comment on above: Performed By: #### U ACSIND #### [facility] [address] [place] [address] Dr. Lissy Allen UA PROTEIN Negative Normal NEGATIVE/ TRACE [facility] Comment on above: Performed By: #### U ACSIND #### [facility] [address] [place] [address] Dr. Lissy Allen UR MICRO IND NOT INDICATED Normal [facility] Comment on above: Performed By: #### U ACSIND #### [facility] [address] [place] [address] Dr. Lissy Allen Urobilinogen Qn (U) 0.2 {Calderon'U}/dL Normal 0.2 - 1. 0 [facility] Comment on above: Performed By: #### U ACSIND #### [facility] [address] [place] [address] Dr. Lissy Allen US PREG BIOPHY W [...] by: DEVIN ANAND Date: 2021-04-05 08:19 Normal [facility] LAB TESTINGon 04-04-2021 RECV HEADER SEE SCANNED REPORT IN HPF Normal [facility] Comment on above: Performed By: #### M ISC #### [facility] [address] [address] [address] Lissy Allen REV FROM REF LAB 04/11/2021 [facility] Comment on above: Performed By: #### M ISC #### [facility] [address] [address] [address] Lissy Allen SENT TO REF LAB 04/04/2021 [facility] Comment on above: Performed By: #### M ISC #### [facility] [address] [address] [address] Lissy Allen US PREG BIOPHY W [...] by: DEVIN ANAND Date: 2021-04-04 13:49 Normal [facility] US PREG BIOPHY W NON STRESSo [...] LUIS HART Date: 2021-04-01 13:17 Normal [facility] US PREG BIOPHY W NON STRESSo [...] by: DEVIN ANAND Date: 2021-03-31 07:02 Normal [facility] AMYLASEon 03-30-2021 Amylase [Catalytic activity/Vol] 70 U/L Normal 31-110 [facility] Comment on above: Performed By: #### A LT, AST, LIPA, CREA, SUSAN, ELEC ####[facility] [address] [address]Dr. Lissy Allen BUNon 03-30-2021 Urea nitrogen [Mass/Vol] 10.0 mg/dL Normal 7.0-17.0 [facility] Comment on above: Performed By: #### B UN #### [facility] [address] [address] [address] Lissy Allen CBC AUTO DIFFon 03-30-2021 BASO # 0.0 103/ul Normal 0.0-0.1 [facility] Comment on above: Performed By: #### C BC ####[facility] [address] [address]Dr. Lissy Allen Basophils/100 WBC (Bld) 0.3 % Normal 0.2-2.0 [facility] Comment on above: Performed By: #### C BC ####[facility] [address] [address]Dr. Lissy Allen EO # 0.0 103/ul Normal 0.0-0.7 [facility] Comment on above: Performed By: #### C BC ####[facility] [address] [address]Dr. Lissy Allen Eosinophils/100 WBC (Bld) 0.2 % Critically low 0.9-7.0 [facility] Comment on above: Performed By: #### C BC ####[facility] [address] [address]Dr. Lissy Allen Erythrocyte distribution width (RBC) [Ratio] 18.6 % Critically high 11.0-15.0 [facility] Comment on above: Performed By: #### C BC ####[facility] [address] [place], [place] [address]Dr. Lissy Allen Hematocrit (Bld) [Volume fraction] 28.6 % Critically low 36.0-48.0 [facility] Comment on above: Performed By: #### C BC ####[facility] [address] [place], [place] [address]Dr. Lissy Allen Hemoglobin (Bld) [Mass/Vol] 8.5 g/dL Critically low 12.0-16.0 [facility] Comment on above: Performed By: #### C BC ####[facility] [address] [place], [place] [address]Dr. Lissy Allen IG # 0.07 10e3/ul Critically high 0.00-0.03 [facility] Comment on above: Performed By: #### C BC ####[facility] [address] [address]Dr. Lissy Allen IG % 0.6 % Critically high 0.0-0.5 [facility] Comment on above: Performed By: #### C BC ####[facility] [address] [place], [place] [address]Dr. Lissy Allen LYMPH # 2.2 103/ul Normal 1.2-3.8 [facility] Comment on above: Performed By: #### C BC ####[facility] [address] [place], [place] [address]Dr. Lissy Allen Lymphocytes/100 WBC (Bld) 19.5 % Critically low 20.5-60.0 [facility] Comment on above: Performed By: #### C BC ####[facility] [address] [address]Dr. Lissy Allen MANUAL DIFF REQ NO Normal [facility] Comment on above: Performed By: #### C BC ####[facility] [address] [address]Dr. Lissy Allen MCH (RBC) [Entitic mass] 23.0 pg Critically low 26.7-34.0 [facility] Comment on above: Performed By: #### C BC ####[facility] [address] [address]Dr. Lissy Allen MCHC (RBC) [Mass/Vol] 29.7 g/dL Critically low 29.9-35.2 [facility] Comment on above: Performed By: #### C BC ####[facility] [address] [address]Dr. Lissy Allen MCV (RBC) [Entitic vol] 77.5 fL Critically low 81.0-99. 0 [facility] Comment on above: Performed By: #### C BC ####[facility] [address] [address]Dr. Lissy Allen MONO # 0.8 103/ul Normal 0.3-0.8 [facility] Comment on above: Performed By: #### C BC ####[facility] [address] [address]Dr. Lissy Allen Monocytes/100 WBC (Bld) 6.8 % Normal 1.7-12.0 [facility] Comment on above: Performed By: #### C BC ####[facility] [address] [address]Dr. Lissy Allen NEUT # 8.2 103/ul Critically high 1.4-6.5 [facility] Comment on above: Performed By: #### C BC ####[facility] [address] [address]Dr. Lissy Allen Neutrophils/100 WBC (Bld) 72.6 % Normal 43.0-75.0 [facility] Comment on above: Performed By: #### C BC ####[facility] [address] [address]Dr. Lissy Allen Platelet mean volume (Bld) [Entitic vol] 11.1 fL Normal 9.5-13.5 [facility] Comment on above: Performed By: #### C BC ####[facility] [address] [address]Dr. Lissy Allen PLT 265 103/ul Normal 150-450 [facility] Comment on above: Performed By: #### C BC ####[facility] [address] [place], [place] [address]Dr. Lissy Allen RBC 3.69 106/ul Critically low 4.20-5.40 [facility] Comment on above: Performed By: #### C BC ####[facility] [address] [place], [place] [address]Dr. Lissy Allen WBC 11.2 103/ul Critically high 4.0-11.0 [facility] Comment on above: Performed By: #### C BC ####[facility] [address] [place], [place] [address]Dr. Lissy Allen CREATININEon 03-30-2021 Creatinine [Mass/Vol] 0.60 mg/dL Normal 0.52-1.04 [facility] Comment on above: Performed By: #### A LT, AST, LIPA, CREA, SUSAN, ELEC ####[facility] [address] [id number]. Lissy Allen EGFR-AF NORWEGIAN >60 Normal >=60 [facility] Comment on above: Performed By: #### A LT, AST, LIPA, CREA, SUSAN, ELEC ####[facility] [address] [place], [place] [id number]. Lissy Allen EGFR-NON AF NORWEGIAN >60 Normal >=60 [facility] Comment on above: Performed By: #### A LT, AST, LIPA, CREA, SUSAN, ELEC ####[facility] [address] [address]Dr. Lissy Allen DRUG SCREEN RAPID (URINE)on 03-30-2021 AMP Negative Normal NEGATIVE [facility] Comment on above: Performed By: #### D RUGRPD #### [facility] [address] [place] [address] Dr. Lissy Allen BAR Negative Normal NEGATIVE [facility] Comment on above: Performed By: #### D RUGRPD #### [facility] [address] [address] [address] Lissy Allen BUP Negative Normal NEGATIVE [facility] Comment on above: Performed By: #### D RUGRPD #### [facility] [address] [place] [address] Dr. Lissy Allen BZO Negative Normal NEGATIVE [facility] Comment on above: Performed By: #### D RUGRPD #### [facility] [address] [address] [address] Lissy Allen DAVID Negative Normal NEGATIVE [facility] Comment on above: Performed By: #### D RUGRPD #### [facility] [address] [place] [address] Dr. Lissy Allen CUT-OFFS SEE BELOW Normal [facility] Comment on above: Result Comment: AMP [...] ng/mL Performed By: #### D RUGRPD #### [facility] [address] [place] [address] Dr. Lissy Allen DRUG CUT HEADER DRUG CLASS TEST SYSTEM CUT-OFF CONCENTRATIONS ARE FOLLOWS: Normal [facility] Comment on above: Performed By: #### D RUGRPD #### [facility] [address] [place] [address] Dr. Lissy Allen mAMP Negative Normal NEGATIVE [facility] Comment on above: Performed By: #### D RUGRPD #### [facility] [address] [place] [address] Dr. Lissy Allen MTD Negative Normal NEGATIVE [facility] Comment on above: Performed By: #### D RUGRPD #### [facility] [address] [place] [address] Dr. Lissy Allen OPI Negative Normal NEGATIVE [facility] Comment on above: Performed By: #### D RUGRPD #### [facility] [address] [place] [address] Dr. Lissy Allen OXY Negative Normal NEGATIVE [facility] Comment on above: Performed By: #### D RUGRPD #### [facility] [address] [place] [address] Dr. Lissy Allen PCP Negative Normal NEGATIVE [facility] Comment on above: Performed By: #### D RUGRPD #### [facility] [address] [place] [address] Dr. Lissy Allen PPX Negative Normal NEGATIVE [facility] Comment on above: Performed By: #### D RUGRPD #### [facility] [address] [place] [address] Dr. Lissy Allen TCA Negative Normal NEGATIVE [facility] Comment on above: Performed By: #### D RUGRPD #### [facility] [address] [place] [address] Dr. Lissy Allen THC Negative Normal NEGATIVE [facility] Comment on above: Performed By: #### D RUGRPD #### [facility] [address] [place] [address] Dr. Lissy Allen ELECTROLYTESon 03-30-2021 Anion gap [Moles/Vol] 12.4 mmol/L Normal [facility] Comment on above: Performed By: #### A LT, AST, LIPA, CREA, SUSAN, ELEC ####[facility] [address] [address]Dr. Lissy Allen Chloride [Moles/Vol] 105 mmol/L Normal 98-107 [facility] Comment on above: Performed By: #### A LT, AST, LIPA, CREA, SUSAN, ELEC ####[facility] [address] [address]Dr. Darcylan Allen CO2 [Moles/Vol] 23.5 mmol/L Normal 22.0-30.0 [facility] Comment on above: Performed By: #### A LT, AST, LIPA, CREA, SUSAN, ELEC ####[facility] [address] [place], [place] [address]Dr. Lissy Allen Potassium [Moles/Vol] 3.9 mmol/L Normal 3.4-5.0 [facility] Comment on above: Performed By: #### A LT, AST, LIPA, CREA, SUSAN, ELEC ####[facility] [address] [place], [place] [address]Dr. Lissy Allen Sodium [Moles/Vol] 137 mmol/L Normal 137-145 [facility] Comment on above: Performed By: #### A LT, AST, LIPA, CREA, SUSAN, ELEC ####[facility] [address] [place], [place] [address]Dr. Lissy Allen LIPASEon 03-30-2021 Lipase [Catalytic activity/Vol] 80.0 U/L Normal 23.0-300.0 [facility] Comment on above: Performed By: #### A LT, AST, LIPA, CREA, SUSAN, ELEC ####[facility] [address] [address]Dr. Lissy Allen SGOTon 03-30-2021 AST [Catalytic activity/Vol] 22 U/L Normal 14-36 [facility] Comment on above: Performed By: #### A LT, AST, LIPA, CREA, SUSAN, ELEC ####[facility] [address] [place], [place] [address]Dr. Lissy Allen SGPTon 03-30-2021 ALT [Catalytic activity/Vol] 16 U/L Normal 9-52 [facility] Comment on above: Performed By: #### A LT, AST, LIPA, CREA, SUSAN, ELEC ####[facility] [address] [address]Dr. Lissy Allen UA (CLEAN/CATCH) MICROSCOPIC IF INDICATEon 03-30-2021 Bilirubin Ql (U) Negative Normal NEGATIVE [facility] Comment on above: Performed By: #### U ARMICR ####[facility] [address] [place], [place] [address]Dr. Lissy Allen Clarity (U) CLEAR Normal CLEAR [facility] Comment on above: Performed By: #### U ARMICR ####[facility] [address] [place], [place] [address]Dr. Lissy Allen Color (U) LT. YELLOW Normal YELLOW [facility] Comment on above: Performed By: #### U ARMICR ####[facility] [address] [place], [place] [address]Dr. Lissy Allen Glucose Ql (U) Negative Normal NEGATIVE [facility] Comment on above: Performed By: #### U ARMICR ####[facility] [address] [place], [place] [address]Dr. Lissy Allen Hemoglobin Ql (U) Negative Normal NEGATIVE [facility] Comment on above: Performed By: #### U ARMICR ####[facility] [address] [place], [place] [address]Dr. Lissy Allen Ketones Ql (U) Negative Normal NEGATIVE [facility] Comment on above: Performed By: #### U ARMICR ####[facility] [address] [place], [place] [address]Dr. Lissy Allen LEUKOCYTES Negative Normal NEGATIVE [facility] Comment on above: Performed By: #### U ARMICR ####[facility] Cx[address] [place], [place] [address]Dr. Lissy Allen Nitrite Ql (U) Negative Normal NEGATIVE [facility] Comment on above: Performed By: #### U ARMICR ####[facility] [address] [address]Dr. Lissy Alejandro pH (U) 6.0 [pH] Normal 5-9 [facility] Comment on above: Performed By: #### U ARMICR ####[facility] [address] [address]Dr. Lissy Alejandro SPEC GRAVITY 1.025 Normal 1.005-<=1.02 5 [facility] Comment on above: Performed By: #### U ARMICR ####[facility] [address] [address]Dr. Lissy Allen UA PROTEIN Negative Normal NEGATIVE/ TRACE [facility] Comment on above: Performed By: #### U ARMICR ####[facility] [address] [address]Dr. Lissy Allen UR MICRO IND NOT INDICATED Normal [facility] Comment on above: Performed By: #### U ARMICR ####[facility] [address] [address]Dr. Darcyshawna Allen Urobilinogen Qn (U) 0.2 {Calderon'U}/dL Normal 0.2 - 1. 0 [facility] Comment on above: Performed By: #### U ARMICR ####[facility] [address] [place], [place] [address]Dr. Darcyshawna Allen US PREG BIOPHY W NON STRESSo [...] DEVIN ANAND Date: 2021-03-29 13:04 Normal [facility] US PREG BIOPHY W NON STRESSo [...] by: DEVIN ALFARO Date: 2021-03-27 14:42 Normal [facility] US PREG BIOPHY W NON STRESSo [...] by: DEVIN ANAND Date: 2021-03-25 07:49 Normal [facility] US PREG BIOPHY W NON STRESSo [...] by: LUIS HART Date: 2021-03-24 14:45 Normal [facility] US PREG UMBILICAL ARTERYon 0 03-24-2021 [...] by: LUIS HART Date: 2021-03-24 13:37 Normal [facility] HBV surface Ag IA Qlon 06-12 Hepatitis B Surface Antigen Negative [facility] HIV 1+2 Ab+HIV1 p24 Ag IA Ql on 06-13-2019 HIV 1&2 AB/AG Non-Reactive [facility] No Panel Informationon 06-12 Rubella immune IgG 1.46 [facility] No Panel InformationOrdered By: Mary Mckoy on 06-13-2019 [facility] T. pallidum IgG+IgM IA Ql (S )Ordered By: Mary Mckoy on 06-13-2019 Syphilis Non-Reactive [facility] Vital Signs Date Time Vital Sign Value Performing Clinician Facility 10-30-2024 13:30-0400 Body mass index (BMI) [Ratio] 34.59 kg/m2 Michelle Segura NP Work Phone: [facility] 10-30-2024 13:30-0400 Body weight 91.4 kg Michelle [employer] Work Phone: [facility] 10-30-2024 13:30-0400 Diastolic blood pressure 82 mm[Hg] Michelle [employer] Work Phone: [facility] 10-30-2024 13:30-0400 Systolic blood pressure 122 mm[Hg] Michelle [employer] Work Phone: [facility] 10-02-2024 11:32-0400 Body mass index (BMI) [Ratio] 34.74 kg/m2 Susan Yesenai PA Work Phone: [facility] 10-02-2024 11:32-0400 Body weight 91.81 kg Susan Tobias PA Work Phone: [facility] 10-02-2024 11:32-0400 Diastolic blood pressure 80 mm[Hg] Susan Tobias PA Work Phone: [facility] 10-02-2024 11:32-0400 Systolic blood pressure 120 mm[Hg] Susan Tobias PA Work Phone: [facility] 09-15-2024 11:38-0400 Body mass index (BMI) [Ratio] 34.06 kg/m2 Andrey Sandhya DO Work Phone: [facility] 09-15-2024 11:38-0400 Body weight 89.99 kg Andrey Sandhya DO Work Phone: [facility] 09-15-2024 11:38-0400 Diastolic blood pressure 74 mm[Hg] Andrey Sandhya DO Work Phone: [facility] 09-15-2024 11:38-0400 Systolic blood pressure 114 mm[Hg] Andrey Sandhya DO Work Phone: [facility] 09-02-2024 11:17-0400 Body mass index (BMI) [Ratio] 33.17 kg/m2 Susan Tobias PA Work Phone: [facility] 09-02-2024 11:17-0400 Body weight 87.66 kg Susan Tobias PA Work Phone: [facility] 09-02-2024 11:17-0400 Diastolic blood pressure 82 mm[Hg] Susan Yesenia PA Work Phone: [facility] 09-02-2024 11:17-0400 Systolic blood pressure 118 mm[Hg] Susan Yesenia PA Work Phone: [facility] 08-27-2024 10:13-0400 Body height 165.1 cm Genia Correia MD Work Phone: [facility] 08-27-2024 10:13-0400 Body mass index (BMI) [Ratio] 32.02 kg/m2 Genia Correia MD Work Phone: [facility] 08-27-2024 10:13-0400 Body weight 87.27 kg Genia Correia MD Work Phone: [facility] 08-27-2024 10:13-0400 Diastolic blood pressure 82 mm[Hg] Genia Correia MD Work Phone: [facility] 08-27-2024 10:13-0400 Heart rate 72 /min Genia Correia MD Work Phone: [facility] 08-27-2024 10:13-0400 Systolic blood pressure 125 mm[Hg] Genia Correia MD Work Phone: [facility] 08-12-2024 19:17-0400 Body temperature 97.5 [degF] [facility] 08-12-2024 19:17-0400 Diastolic blood pressure 64 mm[Hg] [facility] 08-12-2024 19:17-0400 Heart rate 81 /min [facility] 08-12-2024 19:17-0400 Respiratory rate 18 /min [facility] 08-12-2024 19:17-0400 SaO2% (BldA) [Mass fraction] 95 % [facility] 08-12-2024 19:17-0400 Systolic blood pressure 118 mm[Hg] [facility] 08-12-2024 19:09-0400 Body height 165.1 cm [facility] 08-12-2024 19:09-0400 Body weight 87.54 kg [facility] 08-05-2024 11:52-0400 Body mass index (BMI) [Ratio] 33.2 kg/m2 Andrey Sandhya DO Work Phone: [facility] 08-05-2024 11:52-0400 Body weight 87.73 kg Andrey Sandhya DO Work Phone: [facility] 08-05-2024 11:52-0400 Diastolic blood pressure 76 mm[Hg] Andrey Sandhya DO Work Phone: [facility] 08-05-2024 11:52-0400 Systolic blood pressure 120 mm[Hg] Andrey Sandhya DO Work Phone: [facility] 07-27-2024 22:49-0400 SaO2% (BldA) [Mass fraction] 97 % Kaylinn Dokken [facility] 07-27-2024 22:49-0400 Diastolic blood pressure 64 mm[Hg] Kaylinn Dokken [facility] 07-27-2024 22:49-0400 Systolic blood pressure 105 mm[Hg] Kaylinn Dokken [facility] 07-27-2024 22:49-0400 Heart rate 67 /min Kaylinn Dokken [facility] 07-27-2024 22:49-0400 Mean blood pressure 78 mm[Hg] Kaylinn Dokken [facility] 07-27-2024 21:28-0400 Body temperature 98.06 [degF] Kaylinn Dokken [facility] 07-27-2024 21:28-0400 Diastolic blood pressure 82 mm[Hg] Kaylinn Dokken [facility] 07-27-2024 21:28-0400 Heart rate 76 /min Kaylinn Dokken [facility] 07-27-2024 21:28-0400 Respiratory rate 17 /min Kaylinn Dokken [facility] 07-27-2024 21:28-0400 SaO2% (BldA) [Mass fraction] 100 % Kaylinn Dokken [facility] 07-27-2024 21:28-0400 Systolic blood pressure 122 mm[Hg] Kaylinn Dokken [facility] 06-12-2024 13:57-0400 Body mass index (BMI) [Ratio] 30.59 kg/m2 [facility] 06-12-2024 13:57-0400 Body weight 80.83 kg [facility] 06-12-2024 13:57-0400 Diastolic blood pressure 78 mm[Hg] [facility] 06-12-2024 13:57-0400 Systolic blood pressure 128 mm[Hg] [facility] 06-04-2024 20:42-0400 Diastolic blood pressure 83 mm[Hg] Kaylinn Dokken [facility] 06-04-2024 20:42-0400 Systolic blood pressure 119 mm[Hg] Kaylinn Dokken [facility] 06-04-2024 20:42-0400 Heart rate 90 /min Kaylinn Dokken [facility] 06-04-2024 20:42-0400 Mean blood pressure 95 mm[Hg] Kaylinn Dokken [facility] 06-04-2024 20:42-0400 Respiratory rate 16 /min Kaylinn Dokken [facility] 06-04-2024 20:42-0400 SaO2% (BldA) [Mass fraction] 99 % Kaylinn Dokken [facility] 06-04-2024 20:00-0400 Diastolic blood pressure 66 mm[Hg] Kaylinn Dokken [facility] 06-04-2024 20:00-0400 Mean blood pressure 80 mm[Hg] Kaylinn Dokken [facility] 06-04-2024 20:00-0400 Systolic blood pressure 109 mm[Hg] Kaylinn Dokken [facility] 06-04-2024 18:34-0400 Body temperature 97.16 [degF] Kaylinn Dokken [facility] 06-04-2024 18:34-0400 Diastolic blood pressure 78 mm[Hg] Kaylinn Dokken [facility] 06-04-2024 18:34-0400 Heart rate 89 /min Rositaylinn Dokken [facility] 06-04-2024 18:34-0400 Respiratory rate 17 /min Rositaylinn Dokken [facility] 06-04-2024 18:34-0400 SaO2% (BldA) [Mass fraction] 100 % Charaninn Dokken [facility] 06-04-2024 18:34-0400 Systolic blood pressure 122 mm[Hg] Rositaylinn Dokken [facility] 05-28-2024 15:14-0400 Body temperature 98.24 [degF] [facility] 05-28-2024 15:14-0400 Diastolic blood pressure 67 mm[Hg] [facility] 05-28-2024 15:14-0400 Heart rate 88 /min [facility] 05-28-2024 15:14-0400 Respiratory rate 18 /min [facility] 05-28-2024 15:14-0400 SaO2% (BldA) [Mass fraction] 99 % [facility] 05-28-2024 15:14-0400 Systolic blood pressure 121 mm[Hg] Adolph Aleman [facility] 05-07-2024 15:17-0500 Body mass index (BMI) [Ratio] 30.92 kg/m2 Susan Patterson PA Work Phone: [facility] 05-07-2024 15:17-0500 Body weight 81.7 kg Susan Patterson PA Work Phone: [facility] 05-07-2024 15:17-0500 Diastolic blood pressure 70 mm[Hg] Susan Patterson PA Work Phone: [facility] 05-07-2024 15:17-0500 Systolic blood pressure 120 mm[Hg] Susan Patterson PA Work Phone: [facility] 10-09-2023 09:44-0400 Body temperature 97.16 [degF] Jewell Nicolás [facility] 10-09-2023 09:44-0400 Diastolic blood pressure 88 mm[Hg] Jewell Nicolás [facility] 10-09-2023 09:44-0400 Heart rate 88 /min Jewell Nicolás [facility] 10-09-2023 09:44-0400 Respiratory rate 14 /min Jewell Nicolás [facility] 10-09-2023 09:44-0400 SaO2% (BldA) [Mass fraction] 98 % Jewell Nicolás [facility] 10-09-2023 09:44-0400 Systolic blood pressure 112 mm[Hg] Jewell Nicolás [facility] 10-06-2023 22:00-0400 Heart rate 78 /min Andrea Faustin [facility] 10-06-2023 22:00-0400 SaO2% (BldA) [Mass fraction] 98 % Andrea Ramin [facility] 10-06-2023 21:30-0400 Diastolic blood pressure 70 mm[Hg] Andrea Ramin [facility] 10-06-2023 21:30-0400 Heart rate 70 /min Andrea Ramin [facility] 10-06-2023 21:30-0400 Mean blood pressure 81 mm[Hg] Andrea Ramin [facility] 10-06-2023 21:30-0400 Respiratory rate 16 /min Andrea Ramin [facility] 10-06-2023 21:30-0400 Systolic blood pressure 104 mm[Hg] Andrea Ramin [facility] 10-06-2023 21:00-0400 Diastolic blood pressure 73 mm[Hg] Andrea Ramin [facility] 10-06-2023 21:00-0400 Heart rate 71 /min Andrea Ramin [facility] 10-06-2023 21:00-0400 Mean blood pressure 83 mm[Hg] Andrea Ramin [facility] 10-06-2023 21:00-0400 Respiratory rate 15 /min Andrea Ramin [facility] 10-06-2023 20:00-0400 Diastolic blood pressure 88 mm[Hg] Andrea Ramin [facility] 10-06-2023 20:00-0400 Mean blood pressure 97 mm[Hg] Andrea Ramin [facility] 10-06-2023 20:00-0400 Systolic blood pressure 115 mm[Hg] Andrea Ramin [facility] 10-06-2023 19:11-0400 Body temperature 98.42 [degF] Andrea Ramin [facility] 10-06-2023 19:11-0400 Heart rate 81 /min Andrea Ramin [facility] 10-06-2023 19:11-0400 Respiratory rate 20 /min Andrea Ramin [facility] 10-06-2023 19:11-0400 SaO2% (BldA) [Mass fraction] 100 % Andrea Ramin [facility] 05-15-2023 12:59-0500 Blood Pressure Location Jewell Rizviant [facility] 05-15-2023 12:59-0500 Body temperature 98.06 [degF] Jewell Nicolás [facility] 05-15-2023 12:59-0500 Diastolic blood pressure 74 mm[Hg] Jewell Nicolás [facility] 05-15-2023 12:59-0500 Heart rate 93 /min Jewell Nicolás [facility] 05-15-2023 12:59-0500 Respiratory rate 16 /min Jewell Nicolás [facility] 05-15-2023 12:59-0500 SaO2% (BldA) [Mass fraction] 98 % Jewell Nicolás [facility] 05-15-2023 12:59-0500 Systolic blood pressure 132 mm[Hg] Jewell Nicolás [facility] 05-09-2023 18:21-0500 Hourly Rounding Jamie Scalesidge [facility] 05-09-2023 18:21-0500 Promise to Return Jamie Scalesidge [facility] 05-09-2023 17:21-0500 Hourly Rounding Jamie Scalesidge [facility] 05-09-2023 17:21-0500 Promise to Return Jamiealex Scalesidge [facility] 05-09-2023 16:22-0500 Hourly Rounding Jamie Scalesidge [facility] 05-09-2023 16:22-0500 Promise to Return Jamie Scalesidge [facility] 05-09-2023 15:00-0500 Diastolic blood pressure 61 mm[Hg] Jamie Scalesidge [facility] 05-09-2023 15:00-0500 Heart rate 63 /min Jamie Scalesidge [facility] 05-09-2023 15:00-0500 SaO2% (BldA) [Mass fraction] 97 % Jamie Scalesidge [facility] 05-09-2023 15:00-0500 Systolic blood pressure 97 mm[Hg] Jamie Scalesidge [facility] 05-09-2023 11:55-0500 Heart rate 87 /min Jamie Scalesidge [facility] 05-09-2023 11:55-0500 SaO2% (BldA) [Mass fraction] 96 % Jamie Scalesidge [facility] 05-09-2023 11:53-0500 Body temperature 97.7 [degF] Jamie Scalesidge [facility] 05-09-2023 11:53-0500 Diastolic blood pressure 71 mm[Hg] Jamie Scalesidge [facility] 05-09-2023 11:53-0500 Mean blood pressure 83 mm[Hg] Jamie Claridge [facility] 05-09-2023 11:53-0500 Systolic blood pressure 109 mm[Hg] Jamie Scalesidge [facility] 05-09-2023 10:35-0500 Diastolic blood pressure 93 mm[Hg] Jamie Scalesidge [facility] 05-09-2023 10:35-0500 Heart rate 93 /min Jamie Scalesdeloris [facility] 05-09-2023 10:35-0500 Mean blood pressure 108 mm[Hg] Jamie Scalesidge [facility] 05-09-2023 10:35-0500 SaO2% (BldA) [Mass fraction] 98 % Jamie Scalesdeloris [facility] 05-09-2023 10:35-0500 Systolic blood pressure 137 mm[Hg] Jamie Scalesidge [facility] 05-09-2023 09:47-0500 Body temperature 97.52 [degF] Jamie Scalesdeloris [facility] 05-09-2023 09:47-0500 Mean blood pressure 85 mm[Hg] Jamie Scalesidge [facility] 05-09-2023 09:47-0500 Respiratory rate 15 /min Jamie Claridge [facility] 05-09-2023 09:45-0500 Mean blood pressure 85 mm[Hg] Jamie Claridge [facility] 05-09-2023 09:45-0500 Respiratory rate 14 /min Jamiealex Scalesidge [facility] 05-09-2023 09:40-0500 Respiratory rate 16 /min Jamie Steven [facility] 05-09-2023 09:32-0500 Body temperature 97.16 [degF] Jamie Scalesidge [facility] 05-09-2023 09:25-0500 Respiratory rate 12 /min Jamie Scalesidge [facility] 05-09-2023 09:20-0500 Respiratory rate 11 /min Jamie Scalesidge [facility] 05-09-2023 09:15-0500 Respiratory rate 15 /min Jamie Scalesidge [facility] 05-09-2023 04:20-0500 Blood Pressure Location Jamie Steven [facility] 05-09-2023 04:20-0500 Body temperature 98.42 [degF] Jamie Steven [facility] 05-09-2023 01:53-0500 Blood Pressure Location Jamie Steven [facility] 05-09-2023 01:53-0500 Body temperature 97.88 [degF] Jamie Steven [facility] 05-09-2023 01:53-0500 Heart rate 78 /min Jamie Steven [facility] 05-09-2023 01:45-0500 Mean blood pressure 94 mm[Hg] Jamie Scalesidge [facility] 05-09-2023 00:00-0500 Body temperature 100.04 [degF] Jamie Scalesidge [facility] 05-08-2023 23:03-0500 Body temperature 100.94 [degF] Jamie Scalesidge [facility] 05-08-2023 23:03-0500 Heart rate 87 /min Jamie Steven [facility] 05-02-2023 08:19-0500 Body temperature 97.88 [degF] [facility] 05-02-2023 08:19-0500 Diastolic blood pressure 77 mm[Hg] [facility] 05-02-2023 08:19-0500 Heart rate 92 /min [facility] 05-02-2023 08:19-0500 Respiratory rate 18 /min [facility] 05-02-2023 08:19-0500 SaO2% (BldA) [Mass fraction] 94 % [facility] 05-02-2023 08:19-0500 Systolic blood pressure 124 mm[Hg] [facility] 04-23-2023 19:18-0500 Body temperature 98.06 [degF] Andrea Ramin [facility] 04-23-2023 19:18-0500 Diastolic blood pressure 82 mm[Hg] Andrea Ramin [facility] 04-23-2023 19:18-0500 Heart rate 71 /min Andrea Ramin [facility] 04-23-2023 19:18-0500 Respiratory rate 20 /min Andrea Ramin [facility] 04-23-2023 19:18-0500 SaO2% (BldA) [Mass fraction] 98 % Andrea Ramin [facility] 04-23-2023 19:18-0500 Systolic blood pressure 120 mm[Hg] Andrea Ramin [facility] 02-03-2023 00:18-0500 Diastolic blood pressure 88 mm[Hg] Kaylinn Dokken [facility] 02-03-2023 00:18-0500 Heart rate 65 /min Kaylinn Dokken [facility] 02-03-2023 00:18-0500 Mean blood pressure 96 mm[Hg] Kaylinn Dokken [facility] 02-03-2023 00:18-0500 Respiratory rate 18 /min Kaylinn Dokken [facility] 02-03-2023 00:18-0500 SaO2% (BldA) [Mass fraction] 99 % Kaylinn Dokken [facility] 02-03-2023 00:18-0500 Systolic blood pressure 112 mm[Hg] Kaylinn Dokken [facility] 02-02-2023 21:07-0500 Body temperature 97.88 [degF] Kaylinn Dokken [facility] 02-02-2023 21:07-0500 Diastolic blood pressure 101 mm[Hg] Kaylinn Dokken [facility] 02-02-2023 21:07-0500 Heart rate 112 /min Kaylinn Dokken [facility] 02-02-2023 21:07-0500 Respiratory rate 16 /min Kaylinn Dokken [facility] 02-02-2023 21:07-0500 SaO2% (BldA) [Mass fraction] 100 % Kaylinn Dokken [facility] 02-02-2023 21:07-0500 Systolic blood pressure 138 mm[Hg] Kaylinn Dokken [facility] 10-16-2022 14:13-0400 Blood Pressure Location Jewell Nicolás [facility] 10-16-2022 14:13-0400 Body temperature 96.44 [degF] Jewell Nicolás [facility] 10-16-2022 14:13-0400 Diastolic blood pressure 78 mm[Hg] Jewell Nicolás [facility] 10-16-2022 14:13-0400 Heart rate 78 /min Jewell Nioclás [facility] 10-16-2022 14:13-0400 Respiratory rate 18 /min Jewell Nicolás [facility] 10-16-2022 14:13-0400 SaO2% (BldA) [Mass fraction] 99 % Jewell Nicolás [facility] 10-16-2022 14:13-0400 Systolic blood pressure 118 mm[Hg] Jewell Nicolás [facility] 07-10-2022 14:44-0400 Blood Pressure Location MARCIA SIDELL [facility] 07-10-2022 14:44-0400 Body temperature 98.24 [degF] MARCIA SIDELL [facility] 07-10-2022 14:44-0400 Diastolic blood pressure 72 mm[Hg] MARCIA SIDELL [facility] 07-10-2022 14:44-0400 Heart rate 105 /min MARCIA SIDELL [facility] 07-10-2022 14:44-0400 SaO2% (BldA) [Mass fraction] 99 % MARCIA SIDELL [facility] 07-10-2022 14:44-0400 Systolic blood pressure 114 mm[Hg] MARCIA SIDELL [facility] 03-02-2022 14:15-0500 Diastolic blood pressure 83 mm[Hg] Candy Mora DDS Work Phone: [facility] 03-02-2022 14:15-0500 Heart rate 65 /min Candy Mora DDS Work Phone: [facility] 03-02-2022 14:15-0500 Respiratory rate 20 /min [facility]-02-2022 14:15-0500 SaO2% (BldA) [Mass fraction] 98 % Candy Mora DDS [facility] 03-02-2022 14:15-0500 Systolic blood pressure 116 mm[Hg] Candy Mora DDS Work Phone: [facility] 03-02-2022 13:57-0500 Body temperature 97.39 [degF] Candy Mora DDS Work Phone: [facility] 03-02-2022 11:53-0500 Body height 165.1 cm Candy Mora DDS [facility] 03-02-2022 11:53-0500 Body mass index (BMI) [Ratio] 34.11 kg/m2 Candy Mora DDS Work Phone: [facility] 03-02-2022 11:53-0500 Body weight 92.99 kg Candy Mora DDS [facility] 02-19-2022 07:14-0500 Diastolic blood pressure 83 mm[Hg] Andrea Ramin [facility] 02-19-2022 07:14-0500 Heart rate 78 /min Andrea Ramin [facility] 02-19-2022 07:14-0500 Respiratory rate 16 /min Andrea Ramin [facility] 02-19-2022 07:14-0500 SaO2% (BldA) [Mass fraction] 99 % Andrea Ramin [facility] 02-19-2022 07:14-0500 Systolic blood pressure 121 mm[Hg] Andrea Ramin [facility] 02-19-2022 05:40-0500 Body temperature 97.7 [degF] Andrea Ramin [facility] 02-19-2022 05:40-0500 Diastolic blood pressure 85 mm[Hg] Andrea Ramin [facility] 02-19-2022 05:40-0500 Heart rate 89 /min Andrea Rmain [facility] 02-19-2022 05:40-0500 Respiratory rate 16 /min Andrea Ramin [facility] 02-19-2022 05:40-0500 SaO2% (BldA) [Mass fraction] 100 % Andrea Ramin [facility] 02-19-2022 05:40-0500 Systolic blood pressure 129 mm[Hg] Andrea Ramin [facility] 02-16-2022 11:00-0500 Body height 165.1 cm Pse [facility] 02-16-2022 11:00-0500 Body mass index (BMI) [Ratio] 34.11 kg/m2 [facility] 02-16-2022 11:00-0500 Body weight 92.99 kg Pse [facility] 02-04-2022 10:22-0500 Body temperature 97.7 [degF] Reece Yip [facility] 02-04-2022 10:22-0500 Diastolic blood pressure 70 mm[Hg] Reece Yip [facility] 02-04-2022 10:22-0500 Heart rate 81 /min Reece Yip [facility] 02-04-2022 10:22-0500 Respiratory rate 16 /min Reece Yip [facility] 02-04-2022 10:22-0500 SaO2% (BldA) [Mass fraction] 98 % Reece Yip [facility] 02-04-2022 10:22-0500 Systolic blood pressure 132 mm[Hg] Reece Yip [facility] 01-16-2022 14:31-0400 Body height 165.1 cm Candy Mora DDS Work Phone: [facility] 01-16-2022 14:31-0400 Body mass index (BMI) [Ratio] 33.78 kg/m2 Candy Mora DDS Work Phone: [facility] 01-16-2022 14:31-0400 Body temperature 98.01 [degF] Candy Mora DDS Work Phone: [facility] 01-16-2022 14:31-0400 Body weight 92.08 kg Candy Mora DDS Work Phone: [facility] 01-16-2022 14:31-0400 Diastolic blood pressure 81 mm[Hg] Candy Mora DDS Work Phone: [facility] 01-16-2022 14:31-0400 Heart rate 105 /min Candy Mora DDS Work Phone: [facility] 01-16-2022 14:31-0400 Respiratory rate 14 /min Candy Mora DDS Work Phone: [facility] 01-16-2022 14:31-0400 SaO2% (BldA) [Mass fraction] 99 % Candy Mora DDS Work Phone: [facility] 01-16-2022 14:31-0400 Systolic blood pressure 105 mm[Hg] Candy Mora DDS Work Phone: [facility] 08-27-2021 08:32-0400 Body temperature 98.24 [degF] Lane Berger [facility] 08-27-2021 08:32-0400 Diastolic blood pressure 63 mm[Hg] Lane Berger [facility] 08-27-2021 08:32-0400 Heart rate 78 /min Lane Berger [facility] 08-27-2021 08:32-0400 Respiratory rate 20 /min Lane Berger [facility] 08-27-2021 08:32-0400 SaO2% (BldA) [Mass fraction] 98 % Lane Berger [facility] 08-27-2021 08:32-0400 Systolic blood pressure 113 mm[Hg] Lane Berger [facility] Encounters Encounter Date Encounter Type Care Provider Facility Start: 11-04-2024 End: 11-04-2024 Clinisync Result Encounter Michelle Segura [employer] Work Phone: [facility] External Department Unsolicited Start: 11-04-2024 End: 11-04-2024 Clinisync Result Encounter Michelle Segura [employer]OURCE CENTER TEACHER Work Phone: [facility] External Department Unsolicited Start: 10-30-2024 End: 10-30-2024 Bamboo flowsheet Michelle Segura [employer]OURCE CENTER TEACHER Work Phone: [facility] Start: 10-30-2024 End: 10-30-2024 Bamboo flowsheet Michelle Segura RESOURCE CENTER TEACHER Work Phone: [facility] Start: 10-30-2024 End: 10-30-2024 Telephone encounter Viola Jones RN [facility] [place] Start: 10-30-2024 End: 10-30-2024 ambulatory MICHELLE SEGURA Not Available Start: 10-30-2024 End: 10-30-2024 Office outpatient visit 15 minutes Michelle Segura [employer]OURCE CENTER TEACHER Work Phone: JERONIMO ABBOTT Comment on above: Third trimester preg tyrese ([facility]-HCC); 30 weeks gestation of (HHS-HCC); 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[facility]); Rh negative state in antepartum period, unspecified trimester ([facility]); Other iron deficiency anemia Start: 10-29-2024 End: 10-29-2024 Telephone encounter Maryan King RN Maternal- Medicine at [facility] Start: 10-23-2024 End: 10-23-2024 ambulatory [facility] Start: 10-20-2024 End: 10-20-2024 Patient encounter procedure Genia Blake MD -[facility] [place] Work Phone: Start: 10-20-2024 End: 10-20-2024 ambulatory NON [facility] Work Phone: Start: 10-16-2024 End: 10-16-2024 ambulatory [facility] Start: 10-14-2024 End: 10-14-2024 Telephone encounter Maryan King RN Maternal- Medicine at [facility] Start: 10-09-2024 End: 10-09-2024 Telephone encounter Erick Bradley [facility] Start: 10-08-2024 End: 10-08-2024 Telephone encounter Maryan King RN Maternal- Medicine at [facility] Start: 10-07-2024 End: 10-07-2024 Telephone encounter Maryan King RN Maternal- Medicine at [facility] Comment on above: Isoimmunization from blood group [...] 10-06-2024 End: 10-06-2024 ambulatory Kwan Conner Lester [facility] Start: 10-02-2024 ambulatory [facility] Start: 10-02-2024 End: 10-02-2024 Clinisync Result Encounter Andrey Sandhya DO Work Phone: [facility] External Department Unsolicited Start: 10-02-2024 End: 10-02-2024 Clinisync Result Encounter Andrey Sandhya DO Work Phone: [facility] External Department Unsolicited Start: 10-02-2024 End: 10-02-2024 ambulatory SUSAN PATTERSON Not Available Start: 10-02-2024 End: 10-02-2024 Office outpatient visit 15 minutes Susan Patterson PA Work Phone: [facility] Comment on above: Anti-D antibodies pr esent ([facility]); 26 weeks gestation of ([facility]); Second trimester ([facility]); Herpes simplex Start: 10-01-2024 End: 10-01-2024 Telephone encounter Mirian Magallanes RN Maternal- Medicine at [facility] Start: 09-18-2024 End: 09-22-2024 ambulatory [facility] Start: 09-15-2024 End: 09-15-2024 Bamboo flowsheet Andrey Sandhya DO Work Phone: [facility] Start: 09-15-2024 End: 09-15-2024 Bamboo flowsheet Andrey Sandhya DO Work Phone: [facility] Start: 09-15-2024 End: 09-15-2024 ambulatory ANDREY SANDHYA Not Available Start: 09-15-2024 End: 09-15-2024 Office outpatient visit 15 minutes Andrey Sandhya DO Work Phone: [facility] Comment on above: Second trimester pre gnancy ([facility]); 24 weeks gestation of ([facility]); Diabetes mellitus screening; Herpes simplex; Rh negative state in antepartum period, unspecified trimester ([facility]) Start: 09-12-2024 End: 09-12-2024 ambulatory [facility] Start: 09-11-2024 End: 09-11-2024 Telephone encounter Genia Correia MD Work Phone: Maternal- Medicine at [facility] Start: 09-05-2024 End: 09-05-2024 ambulatory [facility] Start: 09-02-2024 End: 09-02-2024 Bamboo flowsheet Susan DAMON Work Phone: [facility] Start: 09-02-2024 End: 09-02-2024 Bamboo flowsheet Susan DAMON Work Phone: [facility] Start: 09-02-2024 End: 09-02-2024 ambulatory SUSAN PATTERSON Not Available Start: 09-02-2024 End: 09-02-2024 Office outpatient visit 15 minutes Susan DAMON Work Phone: [facility] Comment on above: Second trimester pre gnancy ([facility]); 22 weeks gestation of ([facility]) Start: 08-28-2024 End: 08-28-2024 Orders Only Nydia Baig RN Maternal- Medicine at [facility] Comment on above: 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, single or unspecified fetus (Primary Dx); History of intrauterine growth restriction in prior , currently ; with history of section, antepartum Start: 08-27-2024 End: 08-27-2024 Chart abstracting Genia Correia MD Work Phone: [facility] Obstetrics/Gynecology Start: 08-27-2024 ambulatory ANDREY ARTHUR [facility] Start: 08-27-2024 End: 08-27-2024 Office consultation new/estab patient 80 min Genia Correia MD Work Phone: [facility]aternal- Medicine at [facility] Comment on above: 21 weeks gestation o f (Primary Dx); 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, single or unspecified fetus; History of intrauterine growth restriction in prior , currently ; History of oligohydramnios; with history of section, antepartum; History of gestational hypertension; Low lying placenta, antepartum Start: 08-27-2024 End: 08-27-2024 ambulatory ANDREY Springer [facility] Start: 08-12-2024 End: 08-12-2024 Patient encounter procedure [facility] Delivery Work Phone: Start: 08-12-2024 End: 08-12-2024 ambulatory NON STAFF [facility] Work Phone: Start: 08-12-2024 End: 08-12-2024 Emergency department patient visit [facility]gency Room Work Phone: Start: 08-12-2024 End: 08-13-2024 External Result Encounter Hever Hernandez Visci DO Work Phone: [facility] External Department Unsolicited Start: 08-12-2024 End: 08-13-2024 External Result Encounter Hever A Visci DO Work Phone: [facility] External Department Unsolicited Start: 08-07-2024 End: 08-13-2024 Chart abstracting Genia Correia MD Work Phone: [facility] Medicine at [facility] Start: 08-05-2024 End: 08-05-2024 Bamboo flowsheet Andrey Sandhya DO Work Phone: [facility] Start: 08-05-2024 End: 08-06-2024 Bamboo flowsheet Andrey Sandhya DO Work Phone: [facility] Start: 08-05-2024 End: 08-06-2024 External Result Encounter Andrey Sandhya DO Work Phone: [facility] External Department Unsolicited Start: 08-05-2024 End: 08-05-2024 Office outpatient visit 15 minutes Andrey Sandhya DO Work Phone: [facility] Comment on above: 18 weeks gestation o f ; Second trimester ; Well woman exam with routine gynecological exam; Vaginal discharge; Exposure to STD Start: 08-05-2024 End: 08-05-2024 Patient encounter procedure Andrey Sandhya DO Work Phone: [facility] Healthcare Start: 08-05-2024 End: 08-05-2024 ambulatory ANDREY SANDHYA Not Available Start: 07-27-2024 End: 07-27-2024 Emergency department patient visit Earline Bond [facility] Start: 07-23-2024 End: 07-24-2024 Clinisync Result Encounter Andrey Sandhya DO Work Phone: [facility] External Department Unsolicited Start: 07-23-2024 End: 07-24-2024 Clinisync Result Encounter Andrey Sandhya DO Work Phone: [facility] External Department Unsolicited Start: 07-14-2024 End: 07-14-2024 ambulatory ANDREY SANDHYA Not Available Start: 07-14-2024 End: 07-14-2024 Office outpatient visit 15 minutes Andrey Sandhya DO Work Phone: [facility] Comment on above: Third trimester preg tyrese; First trimester ; 15 weeks gestation of ; Rh negative state in antepartum period, unspecified trimester; Herpes simplex; Urinary tract infection without hematuria, site unspecified Start: 07-14-2024 End: 07-14-2024 Bamboo flowsheet Andrey Sandhya DO Work Phone: [facility] Start: 07-14-2024 End: 07-14-2024 Bamboo flowsheet Andrey Sandhya DO Work Phone: [facility] Start: 07-09-2024 End: 07-09-2024 ambulatory Itzel Elliott Facility:[facility] Start: 06-12-2024 End: 06-12-2024 Clinisync Result [...] End: 06-04-2024 Emergency department patient visit Earline Hernandez Varun [facility] Start: 05-28-2024 End: 05-28-2024 Emergency department patient visit Adolph Keenechava [facility] Start: 05-22-2024 End: 05-22-2024 Clinisync Result Encounter [...] encounter procedure Ramona Monsivais MD Work Phone: [facility] [place] Work Phone: Start: 05-14-2024 End: 05-14-2024 ambulatory Ramona Monsivais MD Work Phone: [facility] Work Phone: Start: 05-07-2024 End: 05-07-2024 [...] Start: 05-05-2024 End: 05-05-2024 ambulatory Kwan Batista [facility] Start: 05-05-2024 End: 05-05-2024 Lab Drop off Kwan Batista [facility] Start: 04-29-2024 End: 04-29-2024 Patient encounter procedure Ramona Monsivais MD Work Phone: [facility] [place] Work Phone: Start: 04-29-2024 End: 04-29-2024 ambulatory Ramona Monsivais MD Work Phone: [facility] Work Phone: Start: 04-23-2024 End: 04-23-2024 ambulatory Camryn Barros Facility:[facility] Start: 04-23-2024 End: 04-23-2024 Patient encounter procedure Venus Subramanian [facility] Start: 04-09-2024 End: 04-09-2024 ambulatory Camryn Edna Barros Facility:[facility] Start: 04-09-2024 End: 04-09-2024 Patient encounter procedure Camryn Bishop Fiorella [facility] Start: 03-15-2024 End: 03-15-2024 ambulatory NON STAFF Facility:[facility] Start: 03-15-2024 End: 03-15-2024 Departed Referred Ramona Monsivais MD Work Phone: [facility] Start: 03-14-2024 End: 03-14-2024 ambulatory Jewell L. Nicolás Facility:[facility] Start: 03-14-2024 End: 03-14-2024 Patient encounter procedure Jewell L. Nicolás [facility] [place] Start: 03-04-2024 End: 03-04-2024 ambulatory Jewell L. Nicolás Facility:[facility] Start: 03-04-2024 End: 03-04-2024 Patient encounter procedure Jewell L. Nicolás [facility] [place] Start: 02-29-2024 End: 02-29-2024 ambulatory Jewell L. Nicolás Facility:[facility] Start: 02-29-2024 End: 02-29-2024 Off-Site Jewell L. Nicolás [facility] Start: 02-25-2024 Non-patient / Non-visit Yudelka Monsivais MD Work Phone: [facility] Work Phone: Start: 01-08-2024 End: 01-08-2024 ambulatory VEGETABLE PICKER MO BARNARD Facility:[facility] Start: 10-16-2023 End: 10-17-2023 Pre-admission assessment Jewell Monzon [facility] Start: 10-09-2023 End: 10-09-2023 ambulatory MSN, MICROBIOLOGY PROFESSOR-VEGETABLE PICKER Jewell Monzon Facility:[facility] Start: 10-09-2023 End: 10-09-2023 Patient encounter procedure Jewell Monzon [facility] [place] Start: 10-08-2023 End: 10-08-2023 ambulatory Jewell Monzon Facility:[facility] Start: 10-08-2023 End: 10-08-2023 Patient encounter procedure Jewell Monzon [facility] [place] Start: 10-06-2023 End: 10-06-2023 Emergency department patient visit Andrea Faustin [facility] Start: 08-09-2023 End: 08-09-2023 ambulatory Smitha Wetzel Facility:[facility] Start: 08-09-2023 End: 08-09-2023 Patient encounter procedure Smitha Wetzel [facility] [place] Start: 05-15-2023 End: 05-15-2023 ambulatory MSN, MICROBIOLOGY PROFESSOR-VEGETABLE PICKER Jewell Monzon Facility:[facility] Start: 05-15-2023 End: 05-15-2023 Patient encounter procedure Jewell Monzon [facility] [place] Start: 05-10-2023 End: 06-11-2023 ambulatory LEOPOLDO, MICROBIOLOGY PROFESSOR-VEGETABLE PICKER Jewell Monzon Facility:CD:[id number] Start: 05-08-2023 End: 05-09-2023 ambulatory Jamie Steven [facility] Start: 05-08-2023 End: 05-09-2023 Observation Jamie Steven [facility] Start: 05-02-2023 End: 05-02-2023 Emergency department patient visit Adolph Aleman [facility] Start: 04-23-2023 End: 04-23-2023 Emergency department patient visit Andrea Faustin [facility] Start: 04-04-2023 End: 04-04-2023 ambulatory MSN, MICROBIOLOGY PROFESSOR-VEGETABLE PICKER Jewell Monzon Facility:[facility] Start: 03-27-2023 End: 03-27-2023 ambulatory MSN, MICROBIOLOGY PROFESSOR-VEGETABLE PICKER Jewell Monzon Facility:[facility] Start: 03-27-2023 End: 03-27-2023 Patient encounter procedure Jewell Monzon [facility] [place] Start: 02-02-2023 End: 02-03-2023 Emergency department patient visit Earline Bond [facility] Start: 10-16-2022 End: 10-16-2022 Patient encounter procedure Jewell Monzon [facility] [place] Start: 09-08-2022 End: 09-08-2022 Patient encounter procedure MARCIA JUAREZ [facility] Start: 07-10-2022 End: 07-10-2022 Patient encounter procedure MARCIA JUAREZ [facility] Start: 03-20-2022 Letter encounter Ellie pollard Start: 03-14-2022 End: 03-14-2022 Follow-up encounter Oral Surgery Hog Raiser Work Phone: [facility] Oral Surgery Start: 03-14-2022 End: 03-14-2022 Telemedicine consultation with patient Oral Hog Raiser Work Phone: [facility] Oral Surgery Comment on above: Post-operative state (Primary Dx) Start: 03-14-2022 End: 03-15-2022 ambulatory UNKNOWN PROVIDER [facility] Start: 03-02-2022 End: 03-02-2022 ambulatory CANDY MORA [facility] Start: 03-02-2022 End: 03-02-2022 Subsequent hospital visit by physician Candy Mora DDS Work Phone: [facility] OR Comment on above: 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 Start: 02-16-2022 Encounter for other preprocedural examination UNKNOWN PROVIDER [facility] Start: 02-15-2022 End: 02-15-2022 Nursing evaluation of patient and report [facility] Comment on above: Preop examination (P rimary Dx) Start: 02-15-2022 End: 02-15-2022 Preprocedural examination done [facility] Start: 02-15-2022 Telephone encounter Katherine Thrasher RN Work Phone: [facility] Pre Surgical Evaluation Comment on above: Pre-surgical Evaluat ion (Not available/) Start: 02-04-2022 End: 02-04-2022 Emergency department patient visit Reece Yip [facility] Start: 01-30-2022 Letter encounter Ellie mcclellan [employer] Start: 01-16-2022 End: 01-18-2022 ambulatory UNKNOWN PROVIDER [facility] Start: 01-16-2022 End: 01-16-2022 Patient encounter procedure Candy Mora DDS Work Phone: [facility] Oral Surgery Comment on above: 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); Body mass index (BMI) 33.0-33.9, adult Start: 12-27-2021 ambulatory NAN LUCIEN Facility: [facility] Start: 12-19-2021 Letter encounter Ellie mcclellan Start: 12-15-2021 End: 12-15-2021 ambulatory NAN LUCIEN Facility:[facility] Start: 11-09-2021 ambulatory NAN LUCIEN Facility: [facility] Start: 09-29-2021 End: 10-03-2021 Patient encounter procedure Hakan Marquez DDS Work Phone: [facility] Comment on above: Caries (Primary Dx) Start: 09-29-2021 End: 10-03-2021 ambulatory UNKNOWN PROVIDER [facility] Start: 09-28-2021 End: 09-30-2021 ambulatory UNKNOWN PROVIDER [facility] Start: 09-28-2021 End: 09-30-2021 Patient encounter procedure Hakan Marquez DDS Work Phone: [facility] Start: 08-27-2021 End: 08-27-2021 Emergency department patient visit Lane Berger [facility] Start: 04-19-[address] DOCTOR MATHEWS Facility :[facility] Start: 04-12-2021 End: 04-12-[address] ANDREY ARTHUR Facility:[facility] Start: 04-08-2021 End: 04-08-2021 ambulatory AMBER LUNSFORD Facility:[facility] Start: 04-06-2021 End: 07-05-2021 Patient encounter procedure Lissy Allen [facility] Start: 04-06-[address] ANDREY ARTHUR Facility [...] MATHEWS Facility:[facility] Start: 05-31-2020 RhD negative Lissy Barr [facility] Start: 12-27-2018 End: 12-27-2018 Subsequent hospital visit by physician Raymond [facility] Procedures Date Procedure Procedure Detail Performing Clinician Start: 11-04-2024 US OB BPP W NON-STRESS Michelle Segura NP Work Phone: Start: 10-20-2024 Antibody screen Andrey pierre Comment on above: Result Comment: PERF ORMED BY: [facility] [address] [address] PATHOLOGIST E LEARNING SPECIALIST MARQUITA LICONA M.D. Start: 10-02-2024 Blood count complete auto&auto difrntl wbc Not In System Ref Prov Start: 10-02-2024 GLUCOSE TOLERANCE, 1 HR 50GM LOAD ( PATIENTS ONLY) Not In System Ref Prov Start: 10-02-2024 ANTIBODY ID Genia Correia MD Work Phone: Start: 10-02-2024 ANTIBODY TITER Genia Correia MD Work Phone: Start: 10-02-2024 TYPE AND SCREEN Joid Correia MD Work Phone: Start: 10-02-2024 ALL [...] Work Phone: Start: 08-27-2024 Antibody screen ANDREY PIERRE Comment on above: Performed By: #### T SC #### [facility] ([facility]) [address] [place] [address] VIR Start: 08-12-2024 Culture bacterial quanttative colony count urine Hever Hernandez Visci DO Work Phone: Start: 08-12-2024 OB URINE DRUG SCREEN (NO THC) Hever Hernandez Visci DO Work Phone: Start: 08-12-2024 Urnls dip stick/tabl et rgnt auto w/o microscopy Hever Hernandez Visci DO Work Phone: Start: 08-12-2024 Urine [...] metabolic pane l calcium total Andrey R Sandhya DO Work Phone: Start: 06-12-2024 Drug scrn [...] cmprsn meths Bhavesh Cameron DMD Work Phone: Start: 06-13-2019 Antibody rubella [...] 2) Shingles (RZV) Vaccine (1 of 2) [facility] Start: 01-08-2027 DTaP,Tdap and Td Vaccines (6 - Td or Tdap) DTaP,Tdap and Td Vaccines (6 - Td or Tdap) [facility] Start: 01-08-2027 Tetanus vaccination Tetanus (T d or Tdap) Booster [facility] Start: 08-28-2025 End: 08-28-2025 US MFM with or without consult US MFM with or without consult Imaging Routine 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, single or unspecified fetus History of intrauterine growth restriction in prior , currently with history of section, antepartum Expected: 08/28/2025 (Approximate), Expires: 08/28/20[facility] Work Phone: Comment on above: Expected: 08/28/2025 (Approximate), Expires: 08/28/2025 Start: 08-27-2025 Adult BMI Screening Adult BMI Screen ing [facility] Start: 08-27-2025 Tobacco Screening Tobacco Screening [facility] Start: 11-25-2024 End: 11-25-2024 Patient encounter procedure 11/25/2024 11:30 AM EDT Routine JERONIMO ABBOTT [address] [place] [id number] Susan Patterson PA [address] [place] [address] JERONIMO ABBOTT Start: 11-17-2024 [facility] Start: 11-11-2024 End: 11-11-2024 Patient encounter procedure 11/11/2024 10:30 AM EDT Routine JERONIMO ABBOTT [address] [place] [id number] Andrey Arthur DO [address] [place] [address] J[facility]IMO [facility] Start: 11-10-2024 End: 11-10-2024 Patient encounter procedure [facility] Start: 11-06-2024 End: 11-06-2024 Patient encounter procedure 11/06/2024 3:15 PM EDT Appointment [facility] [place] [address] 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 [address] [place] [phone] [facility] [place] Start: 10-20-2024 [facility] Start: 10-16-2024 End: 10-16-2024 Patient encounter procedure 10/16/2024 3:15 PM EDT Appointment [facility] [place] [address] [place] [address] [facility] [place] Start: 10-09-2024 End: 10-09-2024 Patient encounter procedure 10/09/2024 3:15 PM EDT Appointment [facility] [place] [address] [place] [address] [facility] [place] Start: 10-02-2024 End: 10-02-2024 Patient encounter procedure 10/02/2024 3:15 PM EDT Appointment [facility] [place] [address] [place] [address] [facility] [place] Start: 10-02-2024 End: 10-02-2025 Antibody titer Antibody titer Lab Routine 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[facility]) Expected: 10/02/2024 (Approximate), Expires: 10/02/2025 [facility] Comment on above: Expected: 10/02/2024 (Approximate), Expires: 10/02/2025 Start: 09-29-2024 End: 09-29-2024 Patient encounter procedure 09/29/2024 10:30 AM EDT Routine [facility] [address] [place] [phone] Susan Patterson PA [address] [place] [address] [facility] Start: 09-26-2024 End: 09-26-2024 Patient encounter procedure [facility] Start: 09-18-2024 End: 09-18-2024 Patient encounter procedure 09/18/2024 3:15 PM EDT Appointment [facility] [place] [address] [place] [address] [facility] [place] Start: 09-15-2024 End: 09-15-2025 CBC panel - Blood by Automated count CBC Lab Routine Diabetes mellitus screening Expected: 09/15/2024 (Approximate), Expires: 09/15/2025 [facility] Work Phone: Comment on above: Expected: 09/15/2024 (Approximate), Expires: 09/15/2025 Start: 09-15-2024 End: 09-15-2025 Measurement of glucose 1 hour after glucose challenge for glucose tolerance test Glucose tolerance, 1 hour Lab Routine Diabetes mellitus screening Expected: 09/15/2024 (Approximate), Expires: 09/15/2025 [facility] Comment on above: Expected: 09/15/2024 (Approximate), Expires: 09/15/2025 Start: 09-12-2024 End: 09-12-2024 Patient encounter procedure 09/12/2024 3:30 PM EDT Appointment [facility] [address] [place] [phone] Genia Correia MD [address], [address] [place] [address] [facility] Start: 09-11-2024 End: 09-11-2024 Patient encounter procedure 09/11/2024 3:15 PM EDT Appointment [facility] [place] [address] [place] [address] [facility] [place] Start: 09-04-2024 End: 09-04-2024 Patient encounter procedure 09/04/2024 3:00 PM EDT Appointment [facility] [address] [place] [phone] [facility] Start: 09-02-2024 End: 09-02-2024 Patient encounter procedure 09/02/2024 10:30 AM EDT Routine [facility] [address] [place] [address] [place] [phone] Susan Patterson PA [address] [place] [address] [facility] Start: 08-27-2024 End: 08-27-2024 Patient encounter procedure [facility] Start: 08-12-2024 [facility] Start: 08-12-2024 Urine culture [facility] Start: 08-12-2024 Hospital admission [facility] Start: 08-12-2024 Bacteria identified in Urine by Culture [facility] Work Phone: Start: 08-05-2024 End: 09-05-2024 Alpha fetoprotein, maternal Alpha fetoprotein, maternal Lab Routine 18 weeks gestation of Second trimester Expected: 08/05/2024 (Approximate), Expires: 09/05/2024 [facility] Comment on above: Expected: 08/05/2024 (Approximate), Expires: 09/05/2024 Start: 08-05-2024 End: 08-05-2024 Patient encounter procedure [facility] Comment on above: Arrived Start: 07-14-2024 End: 07-14-2024 Patient encounter procedure 07/14/2024 2:10 PM EDT Routine [facility] [address] [facility] [place] [phone] Andrey Arthur DO [address] [place] [address] [facility] Start: 06-12-2024 End: 06-12-2025 ABO/Rh ABO/Rh Lab Routine Missed menses , unspecified gestational age Expected: 06/12/2024 (Approximate), Expires: 06/12/2025 [facility] Comment on above: Expected: 06/12/2024 (Approximate), Expires: 06/12/2025 Start: 06-12-2024 End: 06-12-2025 Blood type and Indirect antibody screen panel - Blood Type and screen Lab Routine Missed menses , unspecified gestational age Expected: 06/12/2024 (Approximate), Expires: 06/12/2025 [facility] Comment on above: Expected: 06/12/2024 (Approximate), Expires: 06/12/2025 Start: 06-12-2024 End: 06-12-2025 Drugs of abuse panel - Urine by Screen method Rapid drug screen, urine Lab Routine , unspecified gestational age Encounter for supervision of normal first in first trimester Expected: 06/12/2024 (Approximate), Expires: 06/12/2025 [facility] Comment on above: Expected: 06/12/2024 (Approximate), Expires: 06/12/2025 Start: 06-04-2024 End: 06-04-2025 US Pelvis transvaginal US OB transvaginal Imaging Routine Missed menses Expected: 06/04/2024, Expires: 06/04/2025 [facility] Work Phone: Comment on above: Expected: 06/04/2024 , Expires: 06/04/2025 Start: 11-18-2023 COVID-19 Vaccine ( season) COVID-19 Vaccine ( season) [facility] Start: 11-18-2023 Influenza vaccination Influenza Vacc ine (#1) [facility] Start: 08-18-2023 Adult BMI Screening Adult BMI Screen [facility] Start: 03-15-2022 End: 03-15-2022 Telemedicine consultation with patient 03/15/2022 Telemedicine Oral Surgery Candy Mora DDS [address] [place] [address] [facility] Oral Surgery Start: 03-14-2022 End: 03-14-2022 Telemedicine consultation with patient 03/14/2022 Telemedicine Oral Surgery [facility] Oral Surgery Start: 03-02-2022 End: 03-02-2022 EXTRACTION, TOOTH EXTRACTION, TOOTH Routine scheduled 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 03/02/2022 1:[address] [facility] Start: 03-02-2022 End: 03-02-2022 Admission to same day surgery center 03/02/2022 Surgery Ambulatory Surgery Candy Mora DDS [address] [place] [id number] EXTRACTION, TOOTH - #2, 15, 18, 19, 20, [address] [facility] [place] Comment on above: EXTRACTION, TOOTH - #2, 15, 18, 19, 20, 30 Start: 03-02-2022 End: 03-02-2022 EXTRACTION, TOOTH EXTRACTION, TOOTH Routine scheduled 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 03/02/2022 11:48 AM EST [address] Start: 03-02-2022 Subsequent hospital visit by physician 03/02/2022 Hospital Encounter Ambulatory Surgery Candy Mora [address] [facility] [place] Start: 03-02-2022 End: 03-02-2022 Admission to same day surgery center 03/02/2022 Surgery Ambulatory Surgery Candy Mora [address] [address] EXTRACTION, TOOTH - #2, 15, 18, 19, 20, 30 [facility] Ambulatory Surgery Comment on above: EXTRACTION, TOOTH - #2, 15, 18, 19, 20, 30 Start: 03-02-2022 End: 03-02-2022 EXTRACTION, TOOTH EXTRACTION, TOOTH Routine scheduled 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 03/02/2022 9:51 AM [facility] Start: 03-02-2022 Subsequent hospital visit by physician 03/02/2022 Hospital Encounter Ambulatory Surgery Candy Mora [address] [address] [facility] Ambulatory Surgery Start: 02-15-2022 End: 02-15-2022 Nursing evaluation of patient and report 02/15/2022 Nurse Visit Presurgical Evaluation [facility] Pre Surgical Evaluation Start: 01-16-2022 End: 01-16-2022 Patient encounter procedure 01/16/2022 Office Visit Oral Surgery Candy Mora, DDS [address] [phone] [facility] Oral Surgery Start: 12-17-2021 Influenza vaccination Influenza Vacc ine (#1) [facility] Start: 10-15-2020 COVID-19 Vaccine (2 - Booster for Ilda series) COVID-19 Vaccine (2 - Booster for Ilda series) [facility] Start: 06-16-2019 Screening for malign ant neoplasm of cervix Pap Smear [facility] Start: 01-03-2019 End: 01-03-2019 Appointment 01/03/2019 Appointment Psychiatry Noreen Jacobo, [facility] Start: 11-17-2018 Influenza vaccination Flu vaccine (# 1) [place], [place] Start: 2017 DTaP/Tdap/Td vaccine (1 - Tdap) DTaP/Tdap/Td vaccine (1 - Tdap) [place], [place] Start: 2016 Adult BMI Follow Up Plan Adult BMI Follow Up Plan [facility] Start: 2016 Hepatitis C screening Hepatitis C An tibody [facility] Start: 2016 Screening for Chlamy kentrell trachomatis STI Screening (Age 18-24) [facility] Start: 2014 Chlamydia screen Chlamydia screen [place], [place] Start: 2014 Meningococcal B (Bexsero,OMV) Vaccine (Optional,16-23 years) (#1) Meningococcal B (Bexsero,OMV) Vaccine (Optional,16-23 years) (#1) [facility] Start: 2013 HIV screen HIV screen [place], [place] Start: 2013 HIV screening HIV Test [facility] Start: 2013 HPV vaccine (1 - Fem shayna 3-dose series) HPV vaccine (1 - Female 3-dose series) [place], [place] Start: 06-16-2011 Varicella Vaccine (1 of 2 - 13+ 2-dose series) Varicella Vaccine (1 of 2 - 13+ 2-dose series) [place], [place] Start: 2010 Depression Screening Depression Scre [facility] Start: 2010 Tobacco Screening Tobacco Screening [facility] ABO/Rh ABO/Rh Lab Routi ne 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[facility]) Ordered: 10/02/2024 [facility] [employer] Comment on above: Ordered: 10/02/2024 End: 10-07-2025 Antibody ID Antibody ID Blood Bank Routine 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, single or unspecified fetus 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, single or unspecified fetus every 2 weeks for 6 Occurrences starting 10/07/2024 until 10/07/2025, 1 completed [facility] Comment on above: every 2 weeks for 6 Occurrences starting 10/07/2024 until 10/07/2025, 1 completed End: 08-27-2025 Antibody titer Antibody titer Blood Bank Routine 21 weeks gestation of 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, single or unspecified fetus 1 Occurrences starting 08/27/2024 until 08/27/2025 [employer] Work Phone: Comment on above: 1 Occurrences starti ng 08/27/2024 until 08/27/2025 End: 10-07-2025 Antibody titer Antibody titer Blood Bank Routine 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, single or unspecified fetus 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, single or unspecified fetus every 2 weeks for 6 Occurrences starting 10/07/2024 until 10/07/2025, 1 completed [facility] Work Phone: Comment on above: every 2 weeks for 6 Occurrences starting 10/07/2024 until 10/07/2025, 1 completed Bacteria identified in Urine by Culture Urine culture Microbiology Routine Missed menses Ordered: 06/12/2024 [facility] [employer] Comment on above: Ordered: 06/12/2024 Blood type and Indir ect antibody screen panel - Blood Type and screen Lab Routine 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[facility]) Ordered: 10/02/2024 [facility] [employer] Work Phone: Comment on above: Ordered: 10/02/2024 CBC W Auto Different ial panel - Blood CBC and differential Lab Routine Missed menses , unspecified gestational age Ordered: 06/12/2024 [facility] Comment on above: Ordered: 06/12/2024 CHLAMYDIA TRACHOMATI S (GENITO/STI) CHLAMYDIA TRACHOMATIS (GENITO/STI) Lab Routine Exposure to STD Ordered: 08/05/2024 [facility] Comment on above: Ordered: 08/05/2024 Cytology Cervical or vaginal smear or scraping study Pap Smear Pathology and Cytology Routine Well woman exam with routine gynecological exam Ordered: 08/05/2024 [facility] Comment on above: Ordered: 08/05/2024 extraction, erupted tooth or exposed root (elevation and/or forceps removal) EXTRACTION ERUPTED TOOTH/EXR Procedures Routine 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 Ordered: 03/02/2022 [employer] Work Phone: Comment on above: Ordered: 03/02/2022 EXTRACTION, TOOTH EXTRACTION, TO OTH Routine scheduled 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 [facility] Ferritin [Mass/volum e] in Serum or Plasma Ferritin Lab Routine Other iron deficiency anemia Ordered: 10/30/2024 [facility] [employer] Work Phone: Comment on above: Ordered: 10/30/2024 End: 05-07-2025 hCG, quantitative, hCG, quantitative, Lab Routine examination or test, positive result 5 Occurrences starting 05/07/2024 until 05/07/2025 [facility] [employer] Work Phone: Comment on above: 5 Occurrences starti ng 05/07/2024 until 05/07/2025 Hemoglobin A1c/Hemoglobin.total in Blood Hemoglobin A1c Lab Routine Missed menses , unspecified gestational age Ordered: 06/12/2024 [facility] Comment on above: Ordered: 06/12/2024 Hepatitis B virus surface Ag [Presence] in Serum or Plasma by Immunoassay Hepatitis B surface antigen Lab Routine Missed menses , unspecified gestational age Ordered: 06/12/2024 [facility] Comment on above: Ordered: 06/12/2024 Hepatitis C virus Ab [Presence] in Serum or Plasma by Immunoassay Hepatitis C antibody Lab Routine Missed menses , unspecified gestational age Ordered: 06/12/2024 [facility] Comment on above: Ordered: 06/12/2024 HIV-1/HIV-2 antigen/antibody combination immunoassay HIV-1 and HIV-2 antibodies Lab Routine Missed menses , unspecified gestational age Ordered: 06/12/2024 [facility] Comment on above: Ordered: 06/12/2024 Neisseria gonorrhoea e DNA [Presence] in Unspecified specimen by ELYSIA with probe detection Neisseria gonorrhea DNA probe, direct Lab Routine Exposure to STD Ordered: 08/05/2024 [facility] Comment on above: Ordered: 08/05/2024 Patient Education Antepartum Dis charge Instructions ([facility]) [facility] Work Phone: Patient referral [facility] Work Phone: Reagin Ab [Presence] in Serum by RPR RPR Lab Routine Missed menses , unspecified gestational age Ordered: 06/12/2024 [facility] Comment on above: Ordered: 06/12/2024 Rubella antibody, IgG Rubella an tibody, IgG Lab Routine Missed menses , unspecified gestational age Ordered: 06/12/2024 [facility] Comment on above: Ordered: 06/12/2024 SURESWAB(R) ADVANCED VAGINITIS PLUS, TMA SURESWAB(R) ADVANCED VAGINITIS PLUS, TMA Pathology and Cytology Routine Vaginal discharge Ordered: 08/05/2024 [facility] [employer] Work Phone: Comment on above: Ordered: 08/05/2024 End: 10-07-2025 Type and screen(includes indirect chin) Type and screen(includes indirect chin) Blood Bank Routine 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, single or unspecified fetus 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, single or unspecified fetus every 2 weeks for 6 Occurrences starting 10/07/2024 until 10/07/2025 [employer] Work Phone: Comment on above: every 2 weeks for 6 Occurrences starting 10/07/2024 until 10/07/2025 End: 08-27-2025 Unlisted Lab Test Unlisted Lab Test Lab Routine 21 weeks gestation of 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, single or unspecified fetus History of intrauterine growth restriction in prior , currently History of oligohydramnios 1 Occurrences starting 08/27/2024 until 08/27/2025 [facility] Comment on above: 1 Occurrences starti 08/27/2024 until 08/27/2025 US Pelvis transvaginal US OB tra nsvaginal Imaging Routine Missed menses 06/12/2024 1:54 PM EDT [facility] Immunizations Immunization Date Immunization Notes Care Provider Wilver rodrigues 08-20-2020 I[facility]a SARS-COV-2 (COVID-19) vaccine, vector non-replicating, recombinant spike protein-Ad26, preservative free, 0.5 mL (XMV=322) Hakan HendersonKikabetty DDS Work Phone: [facility] Comment on above: Result Comment: 2022: TPVAL 01-23-2020 RHO(D) immune globul in- IV or IM Genia Correia MD Work Phone: [email or web address] 01-08-2017 tetanus toxoid, redu allegra diphtheria toxoid, and acellular pertussis vaccine, adsorbed; Translations: [Adacel (Tdap)] Lissy Allen [facility] 05-10-2015 hepatitis A vaccine, pediatric/adolescent dosage, 2 dose schedule Hakan CottonYelenabetty DDS Work Phone: [facility] 05-10-2015 hepatitis A vaccine, unspecified formulation MARCIA SIDELL [facility] 05-10-2015 HPV, unspecified formulation MARCIA SIDELL [facility] 05-10-2015 human papilloma viru s vaccine, quadrivalent Hakan Cotton-Kikaestrellai DDS Work Phone: [facility] 10-30-2014 hepatitis A vaccine, pediatric/adolescent dosage, 2 dose schedule Hakan Al-Kikaestrellai DDS Work Phone: [facility] 10-30-2014 hepatitis A vaccine, unspecified formulation MARCIA SIDELL [facility] 10-30-2014 HPV, unspecified formulation MARCIA SIDELL [facility] 10-30-2014 human papilloma viru s vaccine, quadrivalent Hakan Al[employer] Work Phone: [facility] 10-30-2014 measles, mumps and rubella virus vaccine [facility] [employer] Work Phone: [facility] 10-30-2014 meningococcal ACWY vaccine, unspecified formulation MARCIA SIDELL [facility] 10-30-2014 meningococcal polysaccharide (groups A, C, Y and W-135) diphtheria toxoid conjugate vaccine (MCV4P) [facility] [employer] Work Phone: [facility] 11-07-2010 HPV, unspecified formulation [facility] [employer] Work Phone: [facility] 11-07-2010 tetanus toxoid, redu allegra diphtheria toxoid, and acellular pertussis vaccine, adsorbed [facility] [employer] Work Phone: [facility] 12-16-1999 diphtheria, tetanus toxoids and acellular pertussis vaccine, unspecified formulation [facility] DDS Work Phone: [facility] 12-16-1999 DTaP, unspecified formulation MARCIA SIDELL [facility] 12-16-1999 pneumococcal conjuga te vaccine, 13 valent MARCIA SIDELL [facility] 12-16-1999 pneumococcal conjuga te vaccine, 7 valent [facility] Work Phone: [facility] 09-14-1999 diphtheria, tetanus toxoids and acellular pertussis vaccine, unspecified formulation [facility] [employer] Work Phone: [facility] 09-14-1999 DTaP, unspecified formulation MARCIA SIDELL [facility] 09-14-1999 haemophilus influenz ae type b vaccine, PRP-OMP conjugate [facility] DDS Work Phone: [facility] 09-14-1999 hepatitis B vaccine, pediatric or pediatric/adolescent dosage Hakan Marquez DDS Work Phone: [facility] 09-14-1999 measles, mumps and rubella virus vaccine Hakan Marquez DDS Work Phone: [facility] 09-14-1999 poliovirus vaccine, inactivated Hakan Marquez DDS Work Phone: [facility] 09-14-1999 poliovirus vaccine, unspecified formulation MARCIA SIDELL [facility] 09-14-1999 varicella virus vaccine Laimelissa Marquez DDS Work Phone: [facility] 1998 diphtheria, tetanus toxoids and acellular pertussis vaccine, unspecified formulation Hakan Marquez DDS Work Phone: [facility] 1998 DTaP, unspecified formulation MARCIA SIDELL [facility] 1998 haemophilus influenz ae type b vaccine, PRP-OMP conjugate Hakan Marquez DDS Work Phone: [facility] 1998 poliovirus vaccine, inactivated Hakan Marquez DDS Work Phone: [facility] 1998 poliovirus vaccine, unspecified formulation MARCIA SIDELL [facility] 1998 diphtheria, tetanus toxoids and acellular pertussis vaccine, unspecified formulation Hakan Benitezi DDS Work Phone: [facility] 1998 DTaP, unspecified formulation MARCIA SIDELL [facility] 1998 haemophilus influenz ae type b vaccine, PRP-OMP conjugate Hakan Benitezi DDS Work Phone: [facility] 1998 hepatitis B vaccine, pediatric or pediatric/adolescent dosage Hakan Al-Kikahni DDS Work Phone: [facility] 1998 poliovirus vaccine, inactivated Hakan Al-Mashni DDS Work Phone: [facility] 1998 poliovirus vaccine, unspecified formulation MARCIA JUAREZ [facility] [place] 1998 hepatitis B vaccine, pediatric or pediatric/adolescent dosage Hakan Al-Mashni DDS Work Phone: [facility] NEGATED: Highlighted row has not occurred!04-09-2024 influenza virus vaccine, unspecified formulation Camryn Fiorella [facility] Payers Date Payer Category Payer Unknown [id number] [id number] 2024 Self-pay 2023 Private Health Insurance [id number] 2022 Medicaid [facility] [id number] 2021 Private Health Insurance [id number]. [id number] 2021 Unknown [id number] 2011 Medicaid [id number] 1998 Unknown [id number] 2.16.840.1.560891.3.579.2. 593 1998 Unknown [id number] 2.16.840.1.150259.3.579.2. 593 1998 Unknown [id number] 2.16.840.1.440329.3.579.2. 593 1998 Unknown [id number] 2.16.840.1.005378.3.579.2. 593 1998 Unknown [id number] 2.16.840.1.752660.3.579.2. 593 1998 Unknown [id number] 2.16.840.1.904685.3.579.2. 593 1998 Unknown [id number] 2.16.840.1.626974.3.579.2. 593 1998 Unknown [id number] 2.16.840.1.296629.3.579.2. 593 1998 Unknown [id number] 2.16.840.1.551469.3.579.2. 593 1998 Unknown [id number] 2.16.840.1.531933.3.579.2. 593 1998 Unknown [id number] 2.16.840.1.372141.3.579.2. 593 1998 Unknown [id number] 2.16.840.1.961122.3.579.2. 593 1998 Unknown [id number] 2.16.840.1.096066.3.579.2. 593 1998 Unknown [id number] 2.16.840.1.473956.3.579.2. 593 1998 Unknown [id number] 2.16.840.1.885902.3.579.2. 593 1998 Unknown [id number] 2.16.840.1.727543.3.579.2. 732 1998 Unknown [id number] 2.16.840.1.575230.3.579.2. 732 1998 Unknown [id number] 2.16.840.1.299777.3.579.2. 732 1998 Unknown [id number] 2.16.840.1.676988.3.579.2. 732 1998 Unknown [id number] 2.16.840.1.200545.3.579.2 732 1998 Unknown [id number] 2.16.840.1.859959.3.579.2. 732 1998 Unknown [id number] 2.16.840.1.516846.3.579.2 72 1998 Unknown [id number] 2.16.840.1.705168.3.579.2 72 1998 Unknown [id number] 2.16.840.1.518368.3.579.2. 727 1998 Unknown [id number] 2.16.840.1.873535.3.579.2 72 1998 Unknown [id number] 2.16.840.1.885834.3.579.2. 727 1998 Unknown [id number] 2.16.840.1.883120.3.579.2 727 1998 Unknown [id number] 2.16.840.1.658007.3.579.2 727 1998 Unknown [id number] 2.16.840.1.405408.3.579.2. 72 1998 Unknown [id number] 2.16.840.1.908677.3.579.2 727 1998 Unknown [id number] 2.16.840.1.239161.3.579.2. 727 1998 Unknown [id number] 2.16.840.1.202977.3.579.2. 72 1998 Unknown [id number] 2.16.840.1.227301.3.579.2 1998 Unknown [id number] 2.16.840.1.446494.3.579.2 72 1998 Unknown [id number] 2.16.840.1.465490.3.579.2 1998 Unknown [id number] 2.16.840.1.415847.3.579.2 72 1998 Unknown [id number] 2.16.840.1.131842.3.579.2 1998 Unknown [id number] 2.16.840.1.496492.3.579.2 1998 Unknown [id number] 2.16840.1.762344.3.579.2 1998 Unknown [id number] 2.16.840.1.338651.3.579.2 1998 Unknown [id number] 2.16.840.1.874395.3.579.2 2000 Unknown [id number] 2.16.840.1.601706.3.579.2 1998 Unknown [id number] 2.16.840.1.942655.3.579.2 1998 Unknown [id number] 2.16.840.1.464085.3.579.2 1998 Unknown [id number] 2.16.840.1.643791.3.579.2 1998 Unknown [id number] 2.16.840.1.172171.3.579.2 1998 Unknown [id number] 2.16.840.1.024873.3.579.2 1998 Unknown [id number] 2.16.840.1.637323.3.579.2. 727 1998 Unknown [id number] 2.16.840.1.201199.3.579.2. 72 1998 Unknown [id number] 2.16.840.1.826059.3.579.2. 727 1998 Unknown [id number] 2.16.840.1.616597.3.579.2. 128 1998 Unknown [id number] 2.16.840.1.205160.3.579.2. 128 1998 Unknown [id number] 2.16.840.1.358922.3.579.2. 1285 1998 Unknown [id number] 2.16.840.1.911501.3.579.2. 1285 1998 Unknown [id number] 2.16840.1.856332.3.579.2. 1285 1998 Unknown [id number] 2.16.840.1.064277.3.579.2. 72 1998 Unknown [id number] 2.16.840.1.193343.3.579.2. 1998 Unknown [id number] 2.16.840.1.837211.3.579.2. 72 1998 Unknown [id number] 2.16.840.1.487326.3.579.2. 128 1998 Unknown [id number] 2.16.840.1.191912.3.579.2. 128 1998 Unknown [id number] 2.16.840.1.784104.3.579.2. 1285 1998 Unknown [id number] 2.16.840.1.067315.3.579.2. 1285 1998 Unknown [id number] 2.16.840.1.029977.3.579.2. 1259 1998 Unknown [id number] 2.16.840.1.256136.3.579.2. 9 1998 Unknown [id number] 2.16.840.1.229302.3.579.2. 1258 1998 Unknown [id number] 2.16.840.1.453060.3.579.2. 1258 1998 Unknown [id number] 2.16.840.1.479515.3.579.2. 1258 1998 Unknown [id number] 2.16.840.1.289362.3.579.2. 1258 1998 Unknown [id number] 2.16.840.1.094558.3.579.2. 1258 1998 Unknown [id number] 2.16840.1.640854.3.579.2. 1258 1998 Unknown [id number] 2.16840.1.593176.3.579.2. 9 1959 Self-pay [id number] 1959 Unknown [id number] [employer]ANCE 1.2.840.402995.1.13.424.2. 7.9.079199.900.315 Unknown [id number] 2.16840.1.662316.3.579.2. 531 Unknown [id number] 2.16840.1.080975.3.579.2. 531 Unknown [id number] 2.16840.1.590044.3.579.2. 531 Unknown [id number] 2.16840.1.250222.3.579.2. 531 Unknown [id number] 2.16.840.1.399288.3.579.2. 531 Unknown [id number] 2.16.840.1.719321.3.579.2. 531 Social History Date Type Detail Facility Tobacco smoking status NHIS Unknown if ever smoked [place], [place] Start: 2000 Sex Assigned At Not on file M [place], [place] Start: 01-23-2020 End: 09-14-2020 Tobacco smoking status Ex-smoker (finding) [facility] Start: 03-30-2020 End: 08-07-2024 Sex Assigned At Female [facility] Tobacco [facility] Comment on above: denies Start: 10-18-2022 Tobacco smoking status NHIS Tobacco smoking consumption unknown [facility] Work Phone: Tobacco smoking status [facility] Start: 02-16-2022 Tobacco smoking status NHIS Never smoked tobacco [facility] Work Phone: Start: 01-23-2020 End: 02-16-2022 Tobacco use and exposure Smokeless tobacco non-user [facility] Start: 02-16-2022 End: 03-03-2022 Alcohol intake Lif[facility]drinker (finding[facility] Tobacco smoking status Never [facility] [place] Start: 04-12-2017 End: 04-12-2017 Tobacco smoking status NHIS Smoker (finding) [facility] Start: 12-18-2019 End: 04-30-2024 Sex Female (finding) [facility] Start: 2000 Sex Assigned At Female F [facility] Start: 04-13-2024 [facility] History of tobacco use Cigarette Smoker [facility] Start: 08-07-2024 End: 08-27-2024 Alcoholic beverage intake Ex-drinker (finding) [facility] Start: 03-30-2020 End: 08-07-2024 History of Social function [facility] Start: 01-23-2020 Tobacco Comment uses nicotine patche s [facility] Start: 04-12-2017 Tobacco smoking status NHIS Smokes tobacco daily (finding) [facility] Medical Equipment Procedure Code Equipment Code Equipment [...] Assessment Result Facility 07-27-2024 Functional Status N/A [facility] 06-04-2024 Functional Status N/A [facility] 05-28-2024 Functional Status N/A [facility] 02-29-2024 Functional Status N/A [facility] 10-09-2023 Functional Status N/A [facility] 10-06-2023 Functional Status N/A [facility] 05-15-2023 Functional Status N/A [facility] 05-09-2023 Functional Status No [facility] 05-08-2023 Functional Status [facility] 05-02-2023 Functional Status N/A [facility] 04-23-2023 Functional Status N/A [facility] 02-02-2023 Functional Status N/A [facility] 10-16-2022 Functional Status N/A [facility] [place] 07-10-2022 Functional Status N/A [facility] [place] 02-19-2022 Functional Status N/A [facility] 02-04-2022 Functional Status N/A [facility] 08-27-2021 Functional Status N/A [facility] Clinical Notes 08-27-2021 to 10-30-2024 Michelle Segura [...] nursing note reviewed. Exam conducted with a master merchandiser present. Vitals: Estimated body mass index is 34.59 kg/m as calculated from the following: Height as of 24: 5' 4 . Weight as of this encounter: 201 lb 8 oz. BP: 122/82 No LMP recorded. Patient is . ASSESSMENT & PLAN ICD-10-CM 1. Third trimester ([facility]) Z34.93 magnesium oxide (Mag-Ox) 400 MG tablet 2. 30 weeks gestation of ([facility]) Z3A.30 3. 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 Rh negative state in antepartum period, unspecified trimester ([facility]) O26.899 iron polysaccharides (ProFe) 391.3 (180 [...] Michelle Segura NP documented in this encounter [facility] 10-30-2024 Miscellaneous Notes Patient was a no show for her MCA dopplers today in the [place] office. Called and left a message on Dr. Arthur's nurse line regarding the no show today. documented in this encounter [facility] 10-30-2024 Telephone encounter Note Patient was a no show for her MCA dopplers today in the [place] office. Called and left a message on Dr. Arthur's nurse line regarding the no show today. [facility] 10-29-2024 Miscellaneous Notes LVM to report patient's antibody titer result. Titers are not critical and patient is to continue to get weekly MCA dopplers and serial titers drawn every 2 weeks. documented in this encounter [facility] 10-29-2024 Telephone encounter Note LVM to report patient's antibody titer result. Titers are not critical and patient is to continue to get weekly MCA dopplers and serial titers drawn every 2 weeks. [facility] 10-14-2024 Miscellaneous Notes Patient called to see when she needs her next antibody titer drawn. Informed patient that she is due to get her labs drawn October 16. Patient instructed to go to [facility] since they will be able to see the standing orders. documented in this encounter [facility] 10-14-2024 Telephone encounter Note Patient called to see when she needs her next antibody titer drawn. Informed patient that she is due to get her labs drawn October 16. Patient instructed to go to [facility] since they will be able to see the standing orders. [facility] 10-09-2024 Miscellaneous Notes Pt called stating that she is unable to be on time for her US today d/t being stuck in traffic. Her US was scheduled for 3:15pm, she stated she could possibly be here at 4:00pm. [facility] business continuity analyst was scanning another pt. Told pt I would call her back after to speaking with business continuity analyst. After discussing pt with [facility] business continuity analyst, I left vm informing pt that we unfortunately cannot see her today for her US d/t her possibly being 45 minutes late. Informed pt that her next US is scheduled for 10/16/2024 at 3:15pm, asked pt to arrive 15 minutes early with out children. documented in this encounter [facility] 10-09-2024 Telephone encounter Note Pt called stating that she is unable to be on time for her US today d/t being stuck in traffic. Her US was scheduled for 3:15pm, she stated she could possibly be here at 4:00pm. [facility] business continuity analyst was scanning another pt. Told pt I would call her back after to speaking with business continuity analyst. [facility] 10-09-2024 Telephone encounter Note After discussing pt with [facility] business continuity analyst, I left vm informing pt that we unfortunately cannot see her today for her US d/t her possibly being 45 minutes late. Informed pt that her next US is scheduled for 10/16/2024 at 3:15pm, asked pt to arrive 15 minutes early with out children. [facility] 10-08-2024 Miscellaneous Notes Jyoti from Dr. Arthur's office called for clarification if the patient needs Rhogam. Patient called her OB office this morning inquiring if she needs the rhogam injection. Director Of Radiology verified with Dr. Correia and she does not need rhogam since she is already sensitized with the D antigen. Her recommendation in listed in her office note on 08/27/2024. Returned call and LVM for Jyoti stating the above information. Left call back number if she has any further questions. documented in this encounter [facility] 10-08-2024 Telephone encounter Note Jyoti from Dr. Arthur's office called for clarification if the patient needs Rhogam. Patient called her OB office this morning inquiring if she needs the rhogam injection. Director Of Radiology verified with Dr. Correia and she does not need rhogam since she is already sensitized with the D antigen. Her recommendation in listed in her office note on 08/27/2024. Returned call and LVM for Jyoti stating the above information. Left call back number if she has any further questions. [facility] 10-07-2024 Miscellaneous Notes Called patient to discuss [...] iron supplementation, order placed for patient to orange picker at the pharmacy. Patient also needs rescheduled for an office visit and follow up survey. Informed patient to look out for a phone call from [facility] to get that scheduled. Patient verbalized understanding. documented in this encounter [facility] 10-07-2024 Telephone encounter Note Called patient to [...] iron supplementation, order placed for patient to orange picker at the pharmacy. Patient also needs rescheduled for an office visit and follow up survey. Informed patient to look out for a phone call from [facility] to get that scheduled. Patient verbalized understanding. [facility] 10-07-2024 Miscellaneous Notes Patient called to inquire about abnormal lab results. Patient had blood work done at [facility] that was ordered by Dr. Correia. Director Of Radiology explained to patient that [facility] is not able to view the results at outside facilities but they should be faxed to our office. Director Of Radiology then attempted to call [facility] but the phone kept ringing. Will try again at a later time. [facility] Telephone encounter Note Patient called to inquire about abnormal lab results. Patient had blood work done at [facility] that was ordered by Dr. Correia. Director Of Radiology explained to patient that [facility] is not able to view the results at outside facilities but they should be faxed to our office. Director Of Radiology then attempted to call [facility] but the phone kept ringing. Will try again at a later time. [facility]-06[facility]2024 Note Discharge Instructio ns Given Worsening The following Patient Education Materials have been given to the patient: ~~ EducationMaterial [facility] 10-02-2024 History of Present illness Narrative [...] & PLAN ICD-10-CM 1. 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 26 weeks gestation of ([facility]) Z3A.26 POCT urinalysis dipstick manually resulted 3. Second trimester ([facility]) Z34.92 4. Herpes simplex B00.9 Return OB: [...] of: NELSON Guzman documented in this encounter [facility] 10-01-2024 Miscellaneous Notes Recvd call from pt 09/30 needing to r/s no show f/u usn and OV with Dr Valle[facility]illo [facility] 30m [facility] Unable to find any appts to work pt in soon, has mca dopplers 10/02 in [facility]. Advised pt that development writer would speak with an MFM provider. Discussed with Dr Vallecillo; advised to repeat antibodies and titers and we would see pt after receiving results, also no Rhogam to be given. Attempted to contact OB office to leave message with recommendations. Unable to leave message at OB office. Telephone note created and providers copied. documented in this encounter [facility] 10-01-2024 Telephone encounter Note Recvd call from pt 15 needing to r/s no show f/u usn and OV with Dr Vallecillo 09/26 [facility] (60m usn, 30m established). Unable to find any appts to work pt in soon, has mca dopplers 10/02 in [facility]. Advised pt that development writer would speak with an MFM provider. Discussed with Dr Vallecillo; advised to repeat antibodies and titers and we would see pt after receiving results, also no Rhogam to be given. Attempted to contact OB office to leave message with recommendations. Unable to leave message at OB office. Telephone note created and providers copied. [facility] 10-01-2024 Miscellaneous Notes Error documented in this encounter [facility] 10-01-2024 Telephone encounter Note Error [facility] 09-15-2024 History of Present illness Narrative Reason [...] nursing note reviewed. Exam conducted with a master merchandiser present. Vitals: Estimated body mass index is 34.06 kg/m as calculated from the following: Height as of 10/31/23: 5' 4 . Weight as of this encounter: 198 lb 6.4 oz. BP: 114/74 No LMP recorded. Patient is . ASSESSMENT & PLAN ICD-10-CM 1. Second trimester ([facility]) Z34.92 POCT urinalysis dipstick manually resulted 2. 24 weeks gestation of ([facility]) Z3A.24 POCT urinalysis dipstick manually resulted 3. Diabetes mellitus screening Z13.1 CBC Glucose tolerance, 1 hour CBC Glucose tolerance, 1 hour 4. Herpes simplex B00.9 5. Rh negative state in antepartum period, unspecified trimester ([facility]) O26.899 Z67.91 Return OB: Patient presents today for a routine obstetrics appointment. Patient is currently 24w1d . Patient states she is doing well but has complaints of being tired due to current . Patient has verbalizes frequent movement. labor precautions was discussed/given. Pt has appts set with M. Orders Placed This Encounter Procedures CBC Glucose tolerance, 1 hour POCT urinalysis dipstick manually resulted Follow Up: Patient is to return to office in 4 week for routine OB appointment. Documented by Nadya Medina LPN on behalf of: Andrey Arthur DO documented in this encounter [facility] 09-11-2024 Miscellaneous Notes [place] antigen testing shows E antigen and D antigen The patient called and notified of results She also has a scheduled follow-up appointment at [facility] GENIA CORREIA MD documented in this encounter [facility] 09-11-2024 Telephone encounter Note [place] antigen testing shows E antigen and D antigen The patient called and notified of results She also has a scheduled follow-up appointment at [facility] GENIA CORREIA MD [facility] 09-02-2024 History of Present illness Narrative Reason [...] ASSESSMENT & PLAN ICD-10-CM 1. Second trimester ([facility]) Z34.92 POCT urinalysis dipstick manually resulted 2. 22 weeks gestation of ([facility]) Z3A.22 Return OB: Patient presents today for a routine obstetrics appointment. Patient is currently 22w2d . Patient states she is doing well but has complaints of being tired due to current . Patient has verbalizes frequent movement. [facility] notes reviewed and explained to the patient. Orders Placed This Encounter Procedures POCT urinalysis dipstick manually resulted Follow Up: Patient is to return to office in 2 week for routine OB appointment. Documented by NELSON Guzman on behalf of: NELSON Guzman documented in this encounter [facility] 08-27-2024 History of Present illness Narrative [facility] [...] needs repeat titiers - last 06/12/24 at [place] [facility] antibody too weak to titer - [...] 04/18/2021 Performed by Devin Goodwin MD at [facility] OR SECTION x2 MANDIBLE SURGERY Allergies: Allergies [...] anemia. Hemolytic Disease of the Fetus and [place] (HDFN) is the end result of RBC [...] We also discussed Cell free DNA screening ([employer]) is available in the [place] with antigen testing. In a clinical validation study published on Scientific Reports, [employer] RhD NIPT and antigen NIPT demonstrated 100% sensitivity, 100% specificity, 99.9% precision with 0.1% no-call rate across 3,921 NIPT assays. (Eber et al 2022). The antigen NIPT through [employer] checks for RhD, C, c, E, K ([place]), and Fya ([place]). She had cell free DNA that shows the fetus to be Rh positive. I reviewed with the patient that I would recommend having a repeat type and screen with the antibody ID and titers. We also discussed amniocentesis versus cell free DNA for the E antigen. She declined amniocentesis and desires to proceed with [email or web address]. If the fetus is negative for the [...] past The patient has scheduled follow-up with [facility] Plan reviewed with patient. She vocalized understanding all questions answered. The patient is to continue with routine care in your office Thank you for allowing me to participate in her care. Please contact me if you have any concerns. Genia Correia MD, FACOG (she/hers) Maternal- Medicine [facility] [address] [place] [address] This document was created with [employer] technology. Though I make every effort to review the dictation as it is transcribed, on occasion the spoken word can be misinterpreted by the technology leading to inappropriate words, phrases, or sentences. This note is addressed to the requesting provider as a consultation for clinical guidance. Specific medical abbreviations are occasionally used and those are generally approved by the [place]?Board of?Obstetrics and?Gynecology?as well as?Jossy herrera abbreviations. The above plan of care was based solely on the diagnoses for which a consultation was requested. ?More frequent testing may be indicated based on her other medical/obstetrical conditions. The management of other or medical conditions is beyond the scope of requested consultation and will continue to be followed by the primary metal sprayer machined parts or primary care provider. Note to patient: [...] risk Have you been seen here at [facility] in a previous ? Yes, patient had prior amniocentesis Recent ER visits or hospitalizations? Yes recently for UTI/back pain Bring blood sugar log or meter with you today? (Please bring them with you for every visit at [facility]) NA Flu vaccine (Jan-May)? NA Any concerns that you would like me to mention to the provider today? No documented [facility] History of Present illness Narrative Reason [...] calculated from the following: Height as of 10/30/24: 5' 4 . Weight as of this [...] Andrey Arthur DO documented in this encounter [facility] 07-28-2024 Hospital Discharge instructions Patient Education 07/27/2024 22:57:00 Abdominal Pain During , Mjgb-sn-Vosf Abdominal Pain During Belly (abdominal) pain is [...] keep your pee (urine) pale yellow. Take kify-fnn-elgmcai and prescription medicines only as told by [...] provider. Document Revised: 11/16/2020 Document Reviewed: 11/16/[address] Patient Education 2023 [employer]. Follow Up Care 07/27/2024 21:27:16 With:Andrey ARTHUR Address: [address] [place] [address]- Business (1) When:07/30/2024 Comments:Please follow-up with OB for further evaluation and management. Return to the ED for any new or worsening symptoms or if you have any concerns. With:Jewell Monzon Address: [address] [place] [address] [place] [address] [phone] Business (1) When:Within 3 Day(s) [facility] 07-27-2024 Note ED Patient Education Note Obstetrics [...] your pee (urine) pale yellow. ??? Take gcrg-nkc-fvzamdu and prescription medicines only as told by [...] provider. Document Revised: 11/16/2020 Document Reviewed: 11/16/[address] Patient Education ? 2023 [employer]. [facility] 07-27-2024 Evaluation + Plan note Extrac [...] EDT UA with Cult Rflx US Limited [facility] 04-28-2025 History of Present illness Narrative* Viki Douglass, [facility] - 07/14/2024 2:10 PM EDT Reason for [...] nursing note reviewed. Exam conducted with a master merchandiser present. Vitals: Estimated body mass index is [...] or undercooked meat, and stay away from [facility]. Patient has been consulted regarding any further do's and don'tsof . Patient voiced understanding and all questions and concerns were answered. Discussed with patient being given Valtrex 500mg BID for 10 days and then maintenance dose to then start daily thereafter. Also sent in Keflex 4 times daily for 7 days. Patient to stop at [facility] after appointment to see about follow up lab work from antibody positive. Called [facility] and spoke with Joseph and Type & Screen will be sent to [facility]. Orders Placed This Encounter Procedures POCT urinalysis dipstick manually resulted Follow Up: Patient is to return in 3 weeks for routine OB appointment. Documented by Viki Douglass LPN on behalf of: Andrey Arthur DO documented [facility] [id number] History of Present illness Narrative* Dee Dee [...] or undercooked meat, and stay away from [facility]. Patient has also been advised to not [...] Dee Dee Jiménez MA documented in this [facility] [id number] NoteMicrobiology PROCEDURE: Cervical Culture [R1] SOURCE: Cerv [...] Locations R1: This test was performed at: [facility], [address] [place] [address], [phone] , , [facility] HospitalComment on above:Performed By: #### [id number] #### [facility] [address] [place] [address] [id number] Hospital Discharge instructions Patient Education 06/04/2024 20:46:04 [...] is treated with medicine. Medicines may be ltff-xsy-ehbcoid or prescription. You maybe told to use one or more of the following: Medicine that is taken by mouth (orally). Medicine that is applied as a cream (topically). Medicine that is inserted directly into the vagina (suppository). Follow these instructions at home: Take or apply evdw-qqc-nivicut and prescription medicines only as told by [...] is treated with medicine. Medicines may be qncg-hwo-haaxhcn or prescription. Take or apply mkjc-xta-qmqgpwj and prescription medicines only as told by [...] provider. Document Revised: 05/23/2021 Document Reviewed: 05/23/[address] Patient Education 2023 [email or web address]. Follow Up Care 06/04/2024 18:32:32 With:Jewell Monzon Address: [place] [address] [phone] Business (1) When:06/07/2024 20:36:42 Comments:Use the nystatin cream as prescribed for the next 7 to 10 days. 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 Please return to the ED for any new or worsening symptoms. [facility] 03-19-2025 NoteED Patient Education Note Obstetrics and [...] is treated with medicine. Medicines may be izvo-rcd-jnbcxri or prescription. You maybe told to use one or more of the following: ??? Medicine that is taken by mouth (orally). ??? Medicine that is applied as a cream (topically). ??? Medicine that is inserted directly into the vagina (suppository). Follow these instructions at home: ??? Take or apply pqwx-xjd-dwcdrhf and prescription medicines only as told by [...] is treated with medicine. Medicines may be yayu-etw-awtvrfe or prescription. ??? Take or apply ofkq-jiv-iogayqr and prescription medicines only as told by [...] provider. Document Revised: 05/23/2021 Document Reviewed: 05/23/2021 Elsevier Patient Education ? 2023 [employer].[facility] 06-04-2024 Evaluation + Plan noteExtracted from: Title:ED Note Author:Varun BARBOSA Charanraimundo Hernandez Date :06/04/24 Vaginal candidiasis (B37.31: Acute candidiasis of vulva and vagina) Orders: nystatin topical, 1 adi, Ointment, Topical, Once, Stop date 06/04/24 20:34:00 EDT, STAT, Start date 06/04/24 20:34:00 EDT nystatin topical, 1 adi, Topical, TID, 15 gram, Refill(s) 0, Lopoly #24, 165, cm, 06/04/24 18:37:00 EDT, Height/Length Dosing, 81.9, kg, 06/04/24 18:37:00 EDT, Weight Dosing Add on Test Cervical Culture Chlamydia/Gonococcus, ELYSIA Diagnostic Tests Pending * Chlamydia/Gonococcus, ELYSIA 06/04/24 [facility] 03-12-2025 Hospital Discharge instructions Patient Education 05/28/2024 [...] provider. Document Revised: 11/29/2020 Document Reviewed: 11/29/[address] Patient Education 2023 [email or web address]. 05/28/2024 17:19:20 Vaginal Bleeding During , First [...] with your regular activities. General instructions Take qhim-odm-aecfzrb and prescription medicines only as told by [...] provider. Document Revised: 11/25/2020 Document Reviewed: 11/25/[address] Patient Education 2023 [employer]. 05/28/2024 17:19:20 First Trimester of First Trimester [...] your visits. Where to find more information [place] Association: americanpregnancy.org [place] College of Obstetricians and Gynecologists: [email or web address]/ Office [...] provider. Document Revised: 08/11/2020 Document Reviewed: 06/17/[address] Patient Education 2023 [employer] Follow Up Care 05/28/2024 15:05:21 With:Andrey ARTHUR Address: [facility] [address] [facility] [place] [address]- Business (1) When:05/31/2024 17:11:09 With:Jewell Monzon Address: [address] [place] [address] [place] [address] [phone] Business (1) When:Within 3 Day(s) [facility] 03-12-2025 NoteED Patient Education Note Obstetrics and [...] provider. Document Revised: 11/29/2020 Document Reviewed: 11/29/[address] Patient Education ? 2023 [email or web address]. Vaginal Bleeding During , First Trimester A [...] care provider know abou (more content not included)...[facility]02-19-2025 History of Present illness Narrative* NELSON [...] behalf of: NELSON Guzman documented in this encounterGeneral [facility] Army [facility] [id number] Evaluation + Plan note Diagnostic Tests Pending * Urine Culture 05/05/24 * PAP [id number] 05/05/24 [facility] [id number] Hospital Discharge instructions Patient Education 03/13/2024 16:38:47 [...] your provider. Avoid caffeine, alcohol, and certain qlut-grv-niqbqom cold medicines. These may make you feel worse. Ask your pharmacist which medicines to avoid. General instructions Take uoto-yvh-nkggiml and prescription medicines only as told by [...] Depression Association of Mira (ADAA): adaa.org National [employer] [place] on Mental Illness (CAROLINE): caroline.org Contact a [...] the National Suicide Prevention Lifeline at or 544. This is open 24 hours a day. Text the Crisis Text Line at 761341. This information is not intended to replace advice given to you by your health care provider. Make sure you discuss any questions you have with your health care provider. Document Revised: 12/12/2022 Document Reviewed: 06/26/[address] Patient Education 2023 [employer]. 03/13/2024 16:38:44 Managing Depression, Adult Managing Depression, [...] pray, or go to a place of mandaen. Practice deep breathing. To do this, inhale [...] sugar, or salt (sodium). General instructions Take zakm-gyr-sartacx and prescription medicines only as told by [...] (ADAA): adaa.org Mental Health Mira: mentalhealthamerica.net National [employer] [place] on Mental Illness: caroline.org Contact a health [...] the National Suicide Prevention Lifeline at or 664. This is open 24 hours a day. Text the Crisis Text Line at 525213. This information is not intended to replace advice given to you by your health care provider. Make sure you discuss any questions you have with your health care provider. Document Revised: 07/11/2022 Document Reviewed: 07/11/[address] Patient Education 2023 [email or web address]. Follow Up Care 03/13/2024 11:09:59 With:Nicolás MINA, MICROBIOLOGY PROFESSOR-VEGETABLE PICKER, Jewell Alcala Address: [address] [place] [phone] When:Within 1 Month(s) [facility] [place] 12-26-2024 NotePatient Education Mental and Behavioral Health [...] not use any products (more content not included)...[facility]12[facility]24 Hospital Discharge instructions Patient Education 03/02/2024 [...] and infections. Other causes may include: Certain yrgd-dwr-fatnjpa and prescription medicines. Supplements that increase anxiety. [...] hard liquor (44 mL). General instructions Take abgu-kes-hwaqoki and prescription medicines only as told by [...] Mental Health Services Administration (SAMHSA): samhsa.gov National Jackson of Mental Health (NIMH): www.nimh.nih.gov Contact a [...] day. Text the Crisis Text Line at 888793. Summary A panic attack is a sudden [...] provider. Document Revised: 10/13/2021 Document Reviewed: 10/13/[address] Patient Education 2023 [employer]. 03/02/2024 14:18:02 Managing Anxiety, Adult Managing Anxiety, [...] your provider. Avoid caffeine, alcohol, and certain txbh-nuk-crymtzg cold medicines. These may make you feel worse. Ask your pharmacist which medicines to avoid. General instructions Take jdgz-gxo-iktxcwj and prescription medicines only as told by [...] Depression Association of Mira (ADAA): adaa.org National [employer] on Mental Illness (CAROLINE): caroline.org Contact a [...] the National Suicide Prevention Lifeline at or 101. This is open 24 hours a day. Text the Crisis Text Line at 495207. This information is not intended to replace advice given to you by your health care provider. Make sure you discuss any questions you have with your health care provider. Document Revised: 12/12/2022 Document Reviewed: 06/26/[address] Patient Education 2023 [email or web address]. Follow Up Care 02/29/2024 07:35:35 With:Nicolás MINA, MICROBIOLOGY PROFESSOR-VEGETABLE PICKER, Jewell Alcala Address: [address] [place] [phone] When:Within 1 Month(s) [facility] [place] 12-15-2024 NotePatient Education Mental [...] infections. Other causes may include: ??? Certain keas-svo-gsvcscz and prescription medicines. ??? Supplements that increase [...] liquor (44 mL). General instructions ??? Take jwcm-jcf-ixmuqgg and prescription medicines only as told by [...] quitting, ask your hea (more content not included)...[facility]12-12-2024 Hospital Discharge instructions Patient Education 02/28/2024 [...] and infections. Other causes may include: Certain ikap-kou-qlprgmi and prescription medicines. Supplements that increase anxiety. [...] hard liquor (44 mL). General instructions Take hdys-wfb-otblaxt and prescription medicines only as told by [...] Mental Health Services Administration (SAMHSA): samhsa.gov National Jackson of Mental Health (NIMH): www.nimh.nih.gov Contact a [...] the National Suicide Prevention Lifeline at or 628. This is open 24 hours a day. Text the Crisis Text Line at 438097. Summary A panic attack is a sudden [...] provider. Document Revised: 10/13/2021 Document Reviewed: 10/13/[address] Patient Education 2023 [employer]. 02/28/2024 18:25:40 Managing Anxiety, Adult Managing Anxiety, [...] your provider. Avoid caffeine, alcohol, and certain ahtp-pxq-erczfpc cold medicines. These may make you feel worse. Ask your pharmacist which medicines to avoid. General instructions Take xycb-xyr-hmrxogh and prescription medicines only as told by [...] Depression Association of Mira (ADAA): adaa.org National [employer] on Mental Illness (CAROLINE): caroline.org Contact a [...] the National Suicide Prevention Lifeline at or 865. This is open 24 hours a day. Text the Crisis Text Line at 647324. This information is not intended to replace advice given to you by your health care provider. Make sure you discuss any questions you have with your health care provider. Document Revised: 12/12/2022 Document Reviewed: 06/26/[address] Patient Education 2023 [email or web address]. Follow Up Care 02/27/2024 14:35:07 With:Nicolás MINA, MICROBIOLOGY PROFESSOR-VEGETABLE PICKER, Jewell Alcala Address: [address] [place] [phone] When:Within 1 Month(s) [facility] [place] 12-12-2024 NotePatient Education Mental and Behavioral Health [...] infections. Other causes may include: ??? Certain hjti-uik-wahlchl and prescription medicines. ??? Supplements that increase [...] liquor (44 mL). General instructions ??? Take wmzq-dnj-xsbiinq and prescription medicines only as told by [...] quitting, ask your hea (more content not included)...[facility]07-21-2024 Hospital Discharge instructions Patient Education 10/07/2023 [...] health careprovider. Avoid caffeine, alcohol, and certain fibg-gxv-tjclvyk cold medicines. These may make you feel worse. Ask your pharmacist which medicines to avoid. General instructions Take gzrt-vkx-mteahdy and prescription medicines only as told by [...] Depression Association of Mira (ADAA): www.adaa.org National [employer] on Mental Illness (CAROLINE): www.caroline.org Contact a [...] department or: Call your local emergency services (228 in the U.S[place] Call a suicide crisis helpline, such as the National Suicide Prevention Lifeline at or 645 in the U.S. This is open 24 hours a day in the [place]. Text the Crisis Text Line at 362632 (in the [place].S.). Summary Taking steps to [...] provider. Document Revised: 09/28/2021 Document Reviewed: 06/26/[address] Patient Education [address] 10/07/2023 14:07:51 Managing Depression, Adult Managing Depression, [...] pray, or go to a place of mandaen. Do some deep breathing. To do this, [...] sugars, or salt (sodium). General instructions Take cicz-cij-ldxtexe and prescription medicines only as told by [...] (ADAA): www.adaa.org Mental Health Mira: www.mentalhealthamerica.net National [employer] on Mental Illness: www.caroline.org Contact a health [...] the National Suicide Prevention Lifeline at or 276 in the [place]. This is open 24 hours a day in the [place]. Text the Crisis Text Line at 809344 (in the [place].S.). Summary If you are [...] provider. Document Revised: 09/28/2021 Document Reviewed: 01/14/[address] Patient Education 2022 [email or web address]. 10/07/2023 14:07:48 Acute Back Pain, Adult Acute [...] home: Managing pain, stiffness, and swelling Take xaqv-kmz-tmgshpt and prescription medicines only as told by [...] each day. Do not sit, drive, or senior market intelligence consultant one place for more than 30 minutes [...] put less stress on your back. Take wyus-jjh-aeeqxzh and prescription medicines only as told by your health care provider, and apply heat or ice as told. This information is not intended to replace advice given to you by your health care provider. Make sure you discuss any questions you have with your health care provider. Document Revised: 05/27/2021 Document Reviewed: 05/27/[address] Patient Education [address] Follow Up Care 10/03/2023 11:33:15 With:Nicolás MINA, MICROBIOLOGY PROFESSOR-VEGETABLE PICKER, Jewell Alcala Address: [address] [place] [phone] When:Within 1 Month(s) [facility] [place] 07-21-2024 NotePatient Education Mental and Behavioral Health [...] Lifestyle (Inserted Image. Rashmi (more content not included)...[facility] 10-07-2023 Hospital Discharge instructions Patient Education [...] these instructions at home: Managing pain Take fqoh-fzw-xudylvz and prescription medicines only as told by [...] provider. Document Revised: 12/02/2020 Document Reviewed: 12/02/[address] Patient Education 2022 [email or web address]. 10/06/2023 23:56:56 Urinary Tract Infection, Adult Urinary [...] Treatment for this condition includes: Antibiotic medicine. Rnwd-lgs-dtlrxil medicines to treat discomfort. Drinking enough water [...] Follow these instructions at home: Medicines Take wzer-cqs-xmexlhh and prescription medicines only as told by [...] provider. Document Revised: 10/15/2020 Document Reviewed: 10/15/[address] Patient Education 2022 [employer]. 10/06/2023 23:56:56 Spondylolisthesis Spondylolisthesis Spondylolisthesis is when [...] Follow these instructions at home: Medicines Take otpy-ral-bvpxthq and prescription medicines only as told by your health care provider. Ask your health care provider if the medicine prescribed to you: ?Requires you to avoid driving or using heavy machinery. ?Can cause constipation. You may need to take these actions to prevent or treat constipation: ?Drink enough fluid to keep your urine pale yellow. ?Take ordn-tjl-xerjzsp or prescription medicines. ?Eat foods that are [...] provider. Document Revised: 05/03/2022 Document Reviewed: 05/03/2022 [employer] Patient Education 2022 [email or web address]. Follow Up Care 10/06/2023 19:11:21 With:Hever Perea Address: [address], [address] [place] [address] [phone] Business (1) When:10/09/2023 With:Jewell Monzon Address: [address] [place] [address] [phone] Business (1) When:10/09/2023 [facility]07-20-2024 NoteED Patient Education Note Neurology Tension Headache, [...] instructions at home: Managing pain ? Take jxfk-dey-awsrxis and prescription medicines only as told by [...] or balancing. ? Feeling (more content not included)...[facility]02-27-2024 Hospital Discharge instructions Patient Education 05/15/2023 [...] pray, or go to a place of mandaen. Do some deep breathing. To do this, [...] sugars, or salt (sodium). General instructions Take jdqh-gfx-zdxljna and prescription medicines only as told by [...] (ADAA): www.adaa.org Mental Health Mira: www.mentalhealthamerica.net National [employer] on Mental Illness: www.caroline.org Contact a health [...] department or: Call your local emergency services (034 in the [place].S[place] Call a suicide crisis helpline, such as the National Suicide Prevention Lifeline at or 874 in the [place].S. This is open 24 hours a day in the [place]. Text the Crisis Text Line at 448045 (in the [place].S.). Summary If you are [...] provider. Document Revised: 09/28/2021 Document Reviewed: 01/14/[address] Patient Education 2022 [email or web address]. 05/15/2023 13:26:25 Managing Anxiety, Adult Managing Anxiety, [...] health careprovider. Avoid caffeine, alcohol, and certain xsfu-drx-zkvxpkt cold medicines. These may make you feel worse. Ask your pharmacist which medicines to avoid. General instructions Take bdus-htk-hwvkujg and prescription medicines only as told by [...] Depression Association of Mira (ADAA): www.adaa.org National [employer] on Mental Illness (CAROLINE): www.caroline.org Contact a [...] department or: Call your local emergency services (527 in the [place] Call a suicide crisis helpline, such as the National Suicide Prevention Lifeline at or 133 in the [place] This is open 24 hours a day in the [place]. Text the Crisis Text Line at 747359 (in the [place].). Summary Taking steps to [...] provider. Document Revised: 09/28/2021 Document Reviewed: 06/26/[address] Patient Education 2022 [email or web address]. Follow Up Care 05/14/2023 10:08:29 With:Nicolás MINA, MICROBIOLOGY PROFESSOR-VEGETABLE PICKER, Jewell Alcala Address: [address] [place] [phone] When:Within 1 Month(s) Comments:[facility] [place] 02-22-2024 Note EMERGENCY GENERAL SURGERY CONSULT / [...] Comment: denies (09/14/2020 13:Dunia Garibay RN) DENIES Tobacco Denies Tobacco Use Vaping [...] than 30 days ago Tobacco Use:. Comment: denies (08/27/2021 08:Mary Kay Reeder RN) Former smoker, [...] (05/08/23) MCV: 72.7 (05/08/23) Microcyte: PRESENT (05/08/23) Hooker Absolute: 0.6 (05/08/23) Hooker Auto: 6.8 (05/08/23) MPV: 8.8 (02 (more content not included)...[facility]:Result Comment: Electronically Signed By: Franny Calixto PA-C\.br\Date and Time Signed: 05/09/23 00:45 EST\.br\Electronically Co-Signed By: Jamie Steven MD\.br\Date and Time Co-Signed: 05/10/23 10:56 [id number] [place] [address] FABRIZIO CARBALLO Date of : 2000 22 [...] to have acute appendicitis. Admitted to the [facility] floor overnight. Patient underwent laparoscopic appendectomy in [...] FOLLOW UP: With: Address: When: trauma clinic [address] [place] [address] 3, second floor, [address] [place], [place] [phone] Within 1 to 2 weeks Comments: Call [...] reasonsto return to clinic or to emergency room.[facility]: Result Comment: Electronically Signed By: Franny Calixto PA-C\.br\Date and Time Signed: 05/09/23 09:48 EST\.br\Electronically Co-Signed By: Jamie Steven MD\.br\Date and Time Co-Signed: 05/10/23 10:56 [id number] Hospital Discharge instructions Patient Education 05/09/2023 09:24:51 Appendicitis, Adult, Cwqy-so-Vwll Appendicitis, Adult The appendix is a tube [...] of your cut from surgery. Medicines Take vnko-gom-hifqxkn and prescription medicines only as told by [...] provider. Document Revised: 08/25/2021 Document Reviewed: 08/25/[address] Patient Education 2022 [email or web address]. 05/09/2023 09:24:48 Laparoscopic Appendectomy, Adult, Care After [...] Follow these instructions at home: Medicines Take hklw-idy-mvbssde and prescription medicines only as told by [...] to keep your urine pale yellow. ?Take vidp-pyo-kzksatx or prescription medicines. ?Eat foods that are [...] and water are not available, use hand stripper and printer. ?Change your dressing as told by your [...] provider. Document Revised: 12/15/2021 Document Reviewed: 12/15/[address] Patient Education 2022 [email or web address]. Follow Up Care 05/08/2023 22:59:55 With:Jewell Monzon Address: [address] [place] [address] [place] [address] [phone] Business (1) When:7 to 10 days only if needed With:trauma clinic Address: [address] [place] [address] 3, second floor, [address] [place] [address] [phone] When:1 to 2 weeks Comments:Call to schedule/confirm followup appointment. May be telephone visit. [facility]02-20-2024 Evaluation + Plan noteExtracted from: Title:ED Note [...] PTT 05/10/23 [facility]02-14-2024 Evaluation + Plan noteExtracted from: Title:ED Note Author:Carlos Wolf PA-C te:05/02/23 Dx: URI (upper respiratory i nfection) J06.9 [facility]02-14-2024 Hospital Discharge instructions Patient Education 05/02/2023 09:22:46 Upper Respiratory Infection, Adult, Vcdi-pw-Cfup Upper Respiratory Infection, Adult An upper respiratory [...] medicines to help relieve symptoms, such as: Fdos-vxb-emjiknp cold medicines. Medicines to reduce coughing (cough [...] and other clear broths. General instructions Take tecp-feu-egfywul and prescription medicines only as told by [...] cannot use soap and water, use hand stripper and printer. Avoid touching your mouth, face, eyes, or [...] get better within 7 10 days. Take duyn-pwp-dskgiei and prescription medicines only as told by your doctor. This information is not intended to replace advice given to you by your health care provider. Make sure you discuss any questions you have with your health care provider. Document Revised: 10/05/2021 Document Reviewed: 10/05/[address] Patient Education 2022 [email or web address]. Follow Up Care 05/02/2023 08:17:23 With:Jewell Monzon Address: [address] [place] [address] [place] [address] [phone] Business (1) When:05/05/2023 09:05:10 Comments:Follow-up with your primary care provider in 3 to 5 days. If symptoms worsen, do not improve, or new symptoms arise please report back to emergency department for further evaluation. [facility]02-05-2024 Hospital Discharge instructions Patient Education 04/23/2023 20:12:56 Back Injury Prevention, Ngel-el-Vnyn Back Injury Prevention Back injuries can be [...] the object as you can. Do not orange picker a heavy object that is far [...] objects on shelves at waist level. Put discharge planner objects on lower or higher shelves. Find [...] provider. Document Revised: 06/27/2021 Document Reviewed: 06/27/[address] Patient Education 2022 [email or web address]. 04/23/2023 20:12:56 Back Exercises, Czxb-md-Mllt Back Exercises These exercises help to make [...] provider. Document Revised: 05/18/2021 Document Reviewed: 05/18/[address] Patient Education 2022 [email or web address]. Follow Up Care 04/23/2023 19:12:28 With:Jewell Monzon Address: [address] [place] [address] [place] [address] [phone] Business (1) When:04/26/2023 20:04:20 Comments:Follow-up with your primary care provider in 3 to 5 days. If symptoms worsen, do not improve, or new symptoms arise please report back to emergency department for further evaluation. [facility]02-05-2024 Evaluation + Plan noteExtracted from: Title:ED Note Author:Carlos Wolf PA-C te:04/23/23 Back spasm (M62.830: Muscle spasm of back) Fall (W19.XXXA: Unspecified fall, initial encounter) Orders: CT Head or Brain w/o Contrast CT Spine Cervical w/o Contrast [facility]01-08-2024 Hospital Discharge instructions Patient Education 03/26/2023 19:46:40 [...] Follow these instructions at home: Medicines Take ofxl-sza-xmcmbmq and prescription medicines only as told by [...] for Headache and Migraine Patients (CHAMP): headachemigraine.org [place] Migraine Foundation: americanmigrainefoundation.org National Headache Foundation: headaches.org [...] provider. Document Revised: 04/21/2020 Document Reviewed: 04/21/[address] Patient Education 2022 [email or web address]. 03/26/2023 19:46:33 DASH Eating Plan DASH Eating [...] Dairy Whole or 2% milk, cream, and dxuh-erw-dufw. Whole or full-fat cream cheese. Whole-fat or sweetened yogurt. Full-fat cheese. Nondairy creamers. Whipped toppings. Processed cheese and cheese spreads. Fats and oils Butter. Stick margarine. Lard. Shortening. Ghee. Ibanez fat. Tropical oils, such as coconut, palm kernel, or palm oil. Seasonings and condiments Onion salt, garlic salt, seasoned salt, table salt, and sea salt. [facility] Hospitaltershire sauce. Tartar sauce. Barbecue sauce. [...] more information National Heart, Lung, and Blood [place]: www.nhlbi.nih.gov [place] Heart Association: www.heart.org Academy of Nutrition and [...] provider. Document Revised: 02/06/2020 Document Reviewed: 02/06/[address] Patient Education 2022 [email or web address]. Follow Up Care 03/23/2023 16:09:40 With:Nicolás MINA, MICROBIOLOGY PROFESSOR-VEGETABLE PICKER, Jewell Alcala Address: [address] [place] [phone] When:Within 6 Month(s) Comments:chronic care [facility] Kishore 11-18-2023 Evaluation + Plan noteExtracted from: Title:ED Note Author:Earline Bond DO Date :02/03/23 Depression (F32.A: Depressio n, unspecified) Orders: Automated Diff CBC w/ Auto Diff Communication Order Comprehensive Metabolic Panel Consult to Mental Health Drug Screen Urine ECG 12 Lead Adult eGFR Ethanol Level Morphology Rapid COVID Antigen ([facility]) U Beta Hcg Qual [facility]11-18-2023 Hospital Discharge instructions Patient Education 02/03/2023 00:33:08 [...] pray, or go to a place of mandaen. Do some deep breathing. To do this, [...] sugars, or salt (sodium). General instructions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 Specialty Start Date End Date Jewell Monzon MD [address] [place] [address] PCP - General Family Medicine 08/08/23 [employer] Relationship Specialty Start Date End Date Jewell Monzon MD [address] [place] [address] PCP - General Family Medicine 08/08/23 [employer] Relationship Specialty Start Date End Date Jewell Monzon MD [address] [place] [address] PCP - General Family Medicine 08/08/23 [employer] Relationship Specialty Start Date End Date Jewell Monzon MD [address] [place] [address] PCP - General Family Medicine 08/08/23 [employer] Relationship Specialty Start Date End Date Jewell Monzon MD [address] [place] [address] PCP - General Family Medicine 08/08/23 [employer] Relationship Specialty Start Date End Date Jewell Monzon MD [address] [place] [address] PCP - General Family Medicine 08/08/23 [employer] Relationship Specialty Start Date End Date Jewell Monzon MD [address] [place] [address] PCP - General Family Medicine 08/08/23 [employer] Relationship Specialty Start Date End Date No Pcp, [place] [address] PCP - General Family Medicine 08/17/22 Team [...] August 12, 2024 End: August 12, 2024 [employer] Relationship Specialty Start Date End Date No Pcp, [place] [address] PCP - General Family Medicine 08/17/22 [employer] Relationship Specialty Start Date End Date No Pcp, [place] [address] PCP - General Family Medicine 08/17/22 [employer] Relationship Specialty Start Date End Date No Pcp, [place] [address] PCP - General Family Medicine 08/17/22 [employer] Relationship Specialty Start Date End Date No Pcp, [place] [address] PCP - General Family Medicine 08/17/22 [employer] Relationship Specialty Start Date End Date No Pcp, [place] [address] PCP - General Family Medicine 08/17/22 [employer] Relationship Specialty Start Date End Date Jewell Monzon MD [address] [place] [address] PCP - General Family Medicine 08/08/23 [employer] Relationship Specialty Start Date End Date No Pcp, [place] [address] PCP - General Family Medicine 08/17/22 [employer] Relationship Specialty Start Date End Date Jewell Monzon MD [address] [place] [address] PCP - General Family Medicine 08/08/23 [employer] Relationship Specialty Start Date End Date Jewell Monzon MD [address] [place] [address] PCP - General Family Medicine 08/08/23 [employer] Relationship Specialty Start Date End Date No Pcp, [place] [address] PCP - General Family Medicine 08/17/22 [employer] Relationship Specialty Start Date End Date No Pcp, [place] [address] PCP - General Family Medicine 08/17/22 [employer] Relationship Specialty Start Date End Date No Pcp, [place] [address] PCP - General Family Medicine 08/17/22 [employer] Relationship Specialty Start Date End Date No Pcp, [place] [address] PCP - General Family Medicine 08/17/22 [employer] Relationship Specialty Start Date End Date No Pcp, [place] [address] PCP - General Family Medicine 08/17/22 Team Status: Inactive Member Role Status Dates NON STAFF Primary Care Provider Active Start: October 20, 2024 End: October 20, 2024 Genia Correia MD Attending Provider Active Start: October 20, 2024 End: October 20, 2024 [employer] Relationship Specialty Start Date End Date Jewell Monzon MD [address] [place] [address] PCP - General Family Medicine 08/08/23 Reason for Visit (unrecogniz ed section and content) Reason Comments New patient, to establish relationship Specialty Diagnoses / Procedures Referred By Arthur t Referred To Contact Oral Surgery Diagnoses Caries Hakan Marquez, DDS [address] [place] [address] [facility] [address] [place] [address] Referral ID Status Reason Start Date Expiration Date V isits Requested Visits Authorized [id number] Authorized 09/29/2021 09/29/2022 3 3 Reason Onset Date Comments Pre-surgical Evaluation 02/15/2022 Not avai lable Reason Onset Date Comments Pre-surgical Evaluation 02/23/2022 Pre-op C OVID testing not needed Specialty Diagnoses / Procedures Referred By Arthur t Referred To Contact Ambulatory Surgery Diagnoses 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 [K02.9] Procedures ANESTHESIA, INTRAORAL PROC, W/BX; NOS UNLISTED PROCEDURE, DENTOALVEOLAR STRUCTURES EXTRACTION, TOOTH - #2, 15, 18, 19, 20, 30 Candy Mora, [place] [address] [place] [address] Phone: [phone] Referral ID Status Reason Start Date Expiration Date Visits Re quested Visits Authorized [id number] 3 3 Reason Comments Post Op Check [...] bupivacaine (MARCAINE) 10 mL, lidocaine-epinephrine (XYLOCAINE) 1 %-1:115191 10 mL, dose administered = 18 mL [...] mL, Intravenous Push, PRN, Starting on Nadia 12/15/22 at 1154, Until Discontinued, For medication administration and blood draw, PACU Now INFORMATION SOURCE (unrecogn ized section and content) DATE CREATED AUTHOR 03/09/2022 [facility] DATE CREATED AUTHOR AUTHOR'S ORGANIZ ATION 03/15/2022 [facility] DATE CREATED AUTHOR AUTHOR'S ORGANIZ ATION 10/09/2023 [facility] DATE CREATED AUTHOR AUTHOR'S ORGANIZ ATION 11/11/2023 [facility] DATE CREATED AUTHOR AUTHOR'S ORGANIZ ATION 05/06/2024 [facility] DATE CREATED AUTHOR AUTHOR'S ORGANIZ ATION 05/09/2024 [facility] DATE CREATED AUTHOR AUTHOR'S ORGANIZ ATION 05/14/2024 [facility] DATE CREATED AUTHOR AUTHOR'S ORGANIZ ATION 05/31/2024 [facility] DATE CREATED AUTHOR AUTHOR'S ORGANIZ ATION 06/07/2024 [facility] DATE CREATED AUTHOR AUTHOR'S ORGANIZ ATION 06/08/2024 [facility] DATE CREATED AUTHOR AUTHOR'S ORGANIZ ATION 07/28/2024 [facility] DATE CREATED AUTHOR AUTHOR'S ORGANIZ ATION 09/14/2024 [facility] DATE CREATED AUTHOR AUTHOR'S ORGANIZ ATION 10/08/2024 [facility] DATE CREATED AUTHOR AUTHOR'S ORGANIZ ATION 10/14/2024 [facility] DATE CREATED AUTHOR AUTHOR'S ORGANIZ ATION 10/25/2024 [facility] DATE CREATED AUTHOR AUTHOR'S ORGANIZ ATION 11/01/2024 [facility] DATE CREATED AUTHOR AUTHOR'S ORGANIZ ATION 11/01/2024 [facility] Goals (unrecognized section and content) [...] BE BASED ON THE PRIMARY CLINICAL RECORDS. [facility] [employer] [facility]. provides no warranty or guarantee of the accuracy or completeness of information in this document.
--- NOTE | 2024-11-07 13:42 | US_ITS ---
[place] [id number] Patient Name: FABRIZIO MOHR MRN: [id number] date: 2000 Sex: F Assigned Patient Location: [facility] Current Patient Location: [facility] Accession/Order Number: [id number] Exam Date: 11/07/2024 14:00 Report Date: 11/07/2024 15:50 At the request of: RESHMA TATE DO Procedure: US OB BPP w non-stress Ultrasound biophysical profile Comparison 11/04/2024: HISTORY: failed Biophysical profile 11/06 FINDINGS: Biophysical profile score of 6 out of 8 with 0 score for fluid. heart 163 beats per minutes.. MADELEINE volume 1.6 cm. Largest pocket 1.1 cm.. US/US OB BPP w non-stress IMPRESSION: Abnormal amniotic fluid volume.. 6 out of 8 score biophysical profile. Impression dictated by: Lake Dillard M.D. 11/07/2024 3:50 PM Dictation Location[facility] [employer] [employer] Electronically authenticated by: [id number] Y Date: 11/07/2024 15:50
[2024-11-07 13:46] VITALS: BP 131/89; PULSE 82
[2024-11-07 13:56] VITALS: BP 123/74; PULSE 90
[2024-11-07 14:06] VITALS: BP 118/75; PULSE 81
[2024-11-07 14:16] VITALS: BP 126/77; PULSE 81
--- NOTE | 2024-11-07 15:17 | US_ITS ---
[address] [address] Patient Name: FABRIZIO MOHR MRN: [id number] date: 2000 Sex: F Assigned Patient Location: [facility] Current Patient Location: [facility] Accession/Order Number: [id number] Exam Date: 11/07/2024 15:29 Report Date: 11/07/2024 16:13 At the request of: RESHMA TATE DO Procedure: US OB growth Limited ultrasound HISTORY: Severe oligohydramnios Fetus in cephalic presentation with longitudinal lie. Amniotic fluid 2.3 cm consistent with oligohydramnios. Largest fluid pocket measures 1.5 cm. heart rate 148 bpm. somatic motion identified. Gestational age by ultrasound 31 weeks 5 days with estimated date of delivery 01/04/2025. Estimated weight 1347 g with weight percentile below 3%. Biparietal diameter, head circumference and abdominal circumference percentile below 3%. US/US OB growth IMPRESSION: Severe oligohydramnios. Single live intrauterine gestation 31 weeks 5 days. Impression dictated by: Jamie Granados M.D. 11/07/2024 4:13 PM Dictation Location: [employer] Electronically authenticated by: [id number] Y Date: 11/07/2024 16:13
--- NOTE | 2024-11-07 15:31 | PM.OBHP ---
OB - H&P: HPI History of Present Illness Chief complaint: Anemia : 4 Para: 3 Gestational age based on last menstrual period: 31 5/7wks Narrative: 23 yo at 31 5/7wks, presents to L&D for Nst and repeat Marianela, pt was [facility] last evening with complaints of lower back and suprapubic pain, pt was treated for uti and bpp was performed, marianela was 7.1 at that time, pt denies any leakage of fluid, ctxns or vaginal bleeding, repeat marianela was 1.7, largest pocket 1.1, pt has ho oligohydramnios last , and anti d antibody during this . ho hsv pt denies any current outbreaks sve cl thick high, fht 140-150's History of Present care: good care Ultrasounds: normal 1st trimester US and normal mid trimester US Medical complications OB: none Labs Blood type: A (-) negative Rubella: immune RPR/VDLR: nonreactive HBsAG: negative Review of Systems ROS Status of ROS: 10 or more systems reviewed and unremarkable except as noted in history and below PFSH PFSH Social History Smoking status: Heavy tobacco smoker Little interest or pleasure in doing things: not at all Feeling down, depressed, or hopeless: not at all Meds Home Medications and Allergies Home Medications ?Medication ?Instructions ?Recorded ?Confirmed ?Type umgzuypyoiipxzz-jxxiqaxdunjixja-MT 5 ml PO Q6H PRN cold symptoms #118 01/10/23 05/05/23 Rx 2 mg-30 mg-10 mg/5 mL oral syrup mL (Bromfed DM) ketorolac 10 mg tablet 10 mg PO TID PRN pain #10 tabs 05/05/23 Rx methocarbamol 750 mg tablet 750 mg PO TID PRN pain #20 tabs 05/05/23 Rx methylprednisolone 4 mg tablets in 4 mg PO DAILY 05/05/23 05/05/23 History a dose pack ondansetron 4 mg disintegrating 4 mg PO Q6H PRN nausea and 05/05/23 Rx tablet vomiting #12 tabs methocarbamol 750 mg tablet 750 mg PO TID PRN pain #20 tabs 10/08/23 Rx cephalexin 500 mg capsule 500 mg PO TID 7 days #21 caps 03/15/24 Rx metronidazole 250 mg tablet 250 mg PO TID #21 tabs 03/15/24 Rx Allergies Allergy/AdvReac Type Severity Reaction Status Date / Time aripiprazole (From [facility]) AdvReac Severe Hallucinati Verified 03/15/24 18:59 ng meloxicam AdvReac Mild lethargic Verified 03/15/24 18:59 Exam Constitutional Vital Signs, click to edit/add: Last Vital Signs Pulse 81 11/07/24 14:16 BP 126/77 11/07/24 14:16 Documenting provider has reviewed patient's vital signs: yes Common normals: no apparent distress Respiratory Common normals: normal respiratory effort and clear to auscultation bilaterally Cardio Common normals: regular rate and regular rhythm GI Common normals: Normal to inspection, nondistended, normoactive bowel sounds present Extremity Common normals: no clubbing, cyanosis or edema and no calf tenderness OB - A/P Assessment and Plan (1) Intrauterine : (2) Oligohydramnios: (3) Anti-D antibodies present: (4) HSV (herpes simplex virus) anogenital infection: Plan discussed with jakob, will transport patient, celestone given, iv, obtain cbc cmp
[2024-11-07] MEDS: BETAMETHASONE ACE/BETAMETHASONE SOD PHOS 30 MG/5 ML 12 MG IM (15:52)
[2024-11-07] MEDS: 0.9 % SODIUM CHLORIDE 1,000 ML 1000 ML IV ×2 (15:54→17:08)
[2024-11-07 15:59] LABS: Hematocrit 31.4 % (36.0-48.0); Hemoglobin 9.5 g/dL (12.0-16.0); Immature Granulocytes Abs Auto 0.10 10^3/uL (0.00-0.03); Immature Granulocytes Pct Auto 0.9 % (0.0-0.5); Lymphocytes Absolute Auto 1.8 10^3/uL (1.2-3.8); Mean Corpuscular HGB Conc 30.3 g/dL (29.9-35.2); Mean Corpuscular Hemoglobin 24.2 pg (26.7-34.0); Mean Corpuscular Volume 79.9 fL (81.0-99.0); Platelet Count 276 10^3/uL (150-450); Red Blood Count 3.93 10^6/uL (4.20-5.40); White Blood Count 11.3 10^3/uL (4.0-11.0)
[2024-11-07 16:15] LABS: Alanine Aminotransferase 16 U/L (14-59); Albumin Globulin Ratio 0.5; Albumin Level 2.3 g/dL (3.4-5.0); Alkaline Phosphatase 110 U/L (46-116); Anion Gap 10.8; Aspartate Amino Transferase 18 U/L (15-37); Blood Urea Nitrogen 9.0 mg/dL (7.0-18.0); Calcium 8.5 mg/dL (8.5-10.1); Carbon Dioxide 24.0 mmol/L (21.0-32.0); Chloride 108 mmol/L (98-107); Estimated GFR (African America >60 (>=60 mL/min/1.73m^2); Estimated GFR (Non-African Ame >60 (>=60 mL/min/1.73m^2); Globulin 4.3 g/dL; Glucose 81 mg/dL (74-106); Potassium 3.8 mmol/L (3.5-5.1); Sodium 139 mmol/L (136-145); Total Protein 6.6 g/dL (6.4-8.2)
== END 2024-11-07 20:12 ==
LOC: FBCO 13:31 → FBC 13:32
PROVIDERS: Visit Provider Obstetrics & Gynecology
DX: O99.019 Anemia complicating pregnancy, unspecified trimester (principal)
CPT/HCPCS: 36415; 76816; 76818; 80053; 85025; 96372; J0702